=== PATIENT | female | born 1960 | race Hispanic/Latino ===

== ENCOUNTER 2017-05-02 15:19 | Inpatient (IN) | payer OTHER ==
--- NOTE | 2017-05-02 16:06 | C.PDOC ---
History Of Present Illness 56-year-old female, PMHx includes Hypertension and Hypercholesterolemia, presents to the emergency department, with complaints of pain to right calf, that started yesterday. This morning, patient noticed redness and swelling. Patient went to see her doctor, who referred her to the ED for evaluation. Denies fever, trauma/injury, chest pain, shortness of breath, or any other associated symptoms. No other complaints at this time. Patient is a smoker. PMD: Dr Mcmillan Time Seen by Provider: 05/02/17 15:57 Chief Complaint (Nursing): Lower Extremity Problem/Injury History Per: Patient History/Exam Limitations: no limitations Onset/Duration Of Symptoms: Days Current Symptoms Are (Timing): Still Present Severity: Moderate Past Medical History Reviewed: Historical Data, Nursing Documentation, Vital Signs Vital Signs: Last Vital Signs Temp 97.8 F 05/02/17 15:27 Pulse 72 05/02/17 15:27 Resp 20 05/02/17 15:27 BP 115/73 05/02/17 15:27 Pulse Ox 97 05/02/17 17:54 - Medical History PMH: HTN, Hypercholesterolemia Family History: States: No Known Family Hx - Social History Hx Alcohol Use: No Hx Substance Use: No - Immunization History Hx Tetanus Toxoid Vaccination: No Hx Influenza Vaccination: Yes Hx Pneumococcal Vaccination: No Review Of Systems Except As Marked, All Systems Reviewed And Found Negative. Constitutional: Negative for: Fever, Chills Cardiovascular: Negative for: Chest Pain Respiratory: Negative for: Shortness of Breath Gastrointestinal: Negative for: Nausea, Vomiting Musculoskeletal: Positive for: Leg Pain (right calf) Neurological: Negative for: Weakness, Numbness Physical Exam - Physical Exam Appears: Non-toxic, No Acute Distress Skin: Warm, Dry, No Rash Eye(s): bilateral: Normal Inspection, PERRL Nose: Normal Oral Mucosa: Moist Lips: Normal Appearing Neck: Normal ROM Cardiovascular: Rhythm Regular, No Murmur Respiratory: Normal Breath Sounds, No Accessory Muscle Use Extremity: Other (right lower extremity: erythema, swelling and tenderness to medial calf.) Neurological/Psych: Oriented x3, Normal Speech, Other ED Course And Treatment - Laboratory Results Result Diagrams: 05/02/17 17:26 05/02/17 17:26 O2 Sat by Pulse Oximetry: 97 Medical Decision Making Medical Decision Making: Impression 56y/o F comes in w/ right calf pain x2 days, sent by Dr Mcmillan for ultrasound. Plan: * Venous Duplex Scan * Reassess and Disposition Venous doppler shows +DVT to right long saphenous vein and varicose veins. Orders placed for labs and Lovenox. Case discussed with Dr Chau who recommends oral eliquis and will discharge with Rx for medication to start tomorrow Labs reviewed showing hyponatremia, hypokalemia and renal insufficiency. patient is not aware of any kidney disease Based on these findings patient cannot take oral eliquis. will contact hospitalist for admission Spoke with Dr Duarte who accepts admission for observation. Disposition Counseled Patient/Family Regarding: Need For Followup, Rx Given - Disposition Referrals: Vandana Aviles DO [[facility]] - Disposition: HOSPITALIZED Disposition Time: 18:26 Condition: STABLE - POA Present On Arrival: Deep Vein Thrombosis / PE - Clinical Impression Clinical Impression: Deep venous thrombosis of lower extremity, Hyponatremia, Hypokalemia - Scribe Statement The provider has reviewed the documentation as recorded by the Scribe (Ten Barron) All medical record entries made by the Scribe were at my direction and personally dictated by me. I have reviewed the chart and agree that the record accurately reflects my personal performance of the history, physical exam, medical decision making, and the department course for this patient. I have also personally directed, reviewed, and agree with the discharge instructions and disposition. Decision To Admit - Pt Status Changed To: Hospital Disposition Of: Observation - . Bed Request Type: Regular Admitting Physician: Daniella Duarte Patient Diagnosis: Deep venous thrombosis of lower extremity, Hyponatremia, Hypokalemia
[2017-05-02] MEDS ORDERED: Enoxaparin 100 mg Syringe SC STA (16:53)
[2017-05-02 17:37] LABS: BASO % 0.5 % (0.0-2.0); EOS # 0.1 K/uL (0.0-0.7); EOS % 1.5 % (0.0-4.0); HEMATOCRIT 31.8 % (34.0-47.0); LYMPH # 1.6 K/uL (1.0-4.3); MEAN CELL VOLUME 88.1 fL (81.0-99.0); MEAN CORPUSCULAR HEMOGLOBIN 30.5 pg (27.0-31.0); MEAN CORPUSCULAR HGB CONC 34.6 g/dL (33.0-37.0); MEAN PLATELET VOLUME 8.8 fL (7.2-11.7); MONO # 0.6 K/uL (0.0-0.8); MONO % 6.2 % (0.0-10.0); RED CELL DISTRIBUTION WIDTH 12.8 % (11.5-14.5); WHITE BLOOD COUNT 9.7 K/uL (4.8-10.8)
[2017-05-02 17:50] LABS: POTASSIUM 3.3 mmol/L (3.6-5.2)
[2017-05-02 17:52] LABS: ALB/GLOB RATIO 1.2 (1.0-2.1); TOTAL PROTEIN 6.7 g/dL (6.3-8.3)
[2017-05-02 17:53] LABS: CALCIUM 8.9 mg/dl (8.6-10.4)
[2017-05-02 18:01] LABS: INR 1.1
[2017-05-02] MEDS ORDERED: Sodium Chloride 0.9% 1,000 ML IV ONE ×2 (18:06→18:30)
[2017-05-02] MEDS ORDERED: Enoxaparin 40 mg Syringe SC STA (18:18)
[2017-05-02] MEDS ORDERED: Sodium Chloride 0.9% 1,000 ML ONE ×2 (18:19→19:07)
[2017-05-02] MEDS ORDERED: Potassium Chloride 20 mEq ER Tab PO STA (18:20)
[2017-05-02] MEDS ORDERED: Potassium Chloride 20 mEq ER Tab PO ONE (18:23)
[2017-05-02] MEDS ORDERED: Heparin25000 units/250ml 1/2NS 25,000 UNITS/250 ML BAG IV PRN (22:10)
[2017-05-02 22:34] LABS: RBC URINE 5 /hpf (0-3); URINE BACTERIA FEW (<OCC); URINE BILIRUBIN NEGATIVE (NEGATIVE); URINE BLOOD NEGATIVE (NEGATIVE); URINE COLOR Yellow (YELLOW); URINE GLUCOSE (UA) NORMAL (Normal); URINE KETONE NEGATIVE (NEGATIVE); URINE LEUKOCYTE ESTERASE 1+ Leu/uL (Negative); URINE PROTEIN 2+ mg/dL (NEGATIVE); URINE UROBILINOGEN NORMAL mg/dL (0.2-1.0); WBC URINE 17 /hpf (0-5)
[2017-05-02] MEDS: Sodium Chloride 0.9% 1,000 ML IV SCH (22:59)
--- NOTE | 2017-05-03 04:16 | CP.PCM.HP ---
<Julienne Mistry - Last Filed: 05/03/17 04:10> History of Present Illness - History of Present Illness History of Present Illness: CC - "Swelling and pain in my leg" HPI - 56-year-old female with a past medical history of Hypertension and Hypercholesterolemia presents to the emergency department with complaints of pain to right calf pain that started yesterday. This morning, patient noticed redness and swelling. Patient went to see her doctor, who referred her to the ED for evaluation. Denies fever, trauma/injury, chest pain, shortness of breath , or any other associated symptoms. No other complaints at this time. Patient is a smoker. She states that for the last month she has been spending a lot of time in bed because she hadn't felt well. She now feels better. Denied recent travel or surgeries. No history of blood clotting disorders. PMHx - HTN, HLD Surg - denies Meds - does not remember, will need to call pharmacy in the morning "one for HTN and a water pill" -> [facility] Allergies - NKDA FamHx - father had "heart problems", mother of a stoke after having peptic ulcer and was on a vent Social - smokes 1/3 pack a day for 40 years, denies drug or alcohol use, lives with her daughter in [place] PMD - Dr. Mcmillan Present on Admission - Present on Admission Any Indicators Present on Admission: Yes History of DVT/PE: Yes Review of Systems - Constitutional Constitutional: absent: Chills, Fever - EENT Eyes: absent: Blurred Vision, Change in Vision - Cardiovascular Cardiovascular: absent: Chest Pain at Rest, Palpitations, Pedal Edema, Syncope - Respiratory Respiratory: absent: Cough, Dyspnea, Dyspnea on Exertion - Gastrointestinal Gastrointestinal: absent: Abdominal Pain, Constipation, Diarrhea, Nausea, Vomiting - Genitourinary Genitourinary: absent: Change in Urinary Stream, Difficulty Urinating - Musculoskeletal Musculoskeletal: absent: Numbness, Tingling Additional comments: pain and redness to R calf - Neurological Neurological: absent: Dizziness, Weakness - Hematologic/Lymphatic Hematologic: absent: Easy Bleeding, Easy Bruising Past Patient History - Past Medical History & Family History Past Medical History?: Yes - Past Social History Smoking Status: Light Smoker < 10 Cigarettes Daily - CARDIAC Hx Cardiac Disorders: Yes Hx Hypercholesterolemia: Yes Hx Hypertension: Yes - PULMONARY Hx Respiratory Disorders: No - NEUROLOGICAL Hx Neurological Disorder: No - HEENT Hx HEENT Problems: Yes Other/Comment: GLASSES FOR READING - RENAL Hx Chronic Kidney Disease: No - ENDOCRINE/METABOLIC Hx Endocrine Disorders: No - HEMATOLOGICAL/ONCOLOGICAL Hx Blood Disorders: No - INTEGUMENTARY Hx Dermatological Problems: No - MUSCULOSKELETAL/RHEUMATOLOGICAL Hx Musculoskeletal Disorders: No Hx Falls: No - GASTROINTESTINAL Hx Gastrointestinal Disorders: No - GENITOURINARY/GYNECOLOGICAL Hx Genitourinary Disorders: No - PSYCHIATRIC Hx Psychophysiologic Disorder: No Hx Substance Use: No - SURGICAL HISTORY Hx Surgeries: No Other/Comment: CYST LEFT BREAST YEARS - ANESTHESIA Hx Anesthesia: No Meds Allergies/Adverse Reactions: Allergies Allergy/AdvReac Type Severity Reaction Status Date / Time No Known Allergies Allergy Verified 05/02/17 15:29 Physical Exam - Constitutional Appears: Non-toxic, No Acute Distress - Head Exam Head Exam: ATRAUMATIC, NORMAL INSPECTION - Eye Exam Eye Exam: EOMI, PERRL Pupil Exam: NORMAL ACCOMODATION - ENT Exam ENT Exam: Mucous Membranes Moist - Respiratory Exam Respiratory Exam: Clear to Auscultation Bilateral, NORMAL BREATHING PATTERN. absent: Accessory Muscle Use, Rhonchi, Wheezes, Respiratory Distress - Cardiovascular Exam Cardiovascular Exam: REGULAR RHYTHM, +S1, +S2 - GI/Abdominal Exam GI & Abdominal Exam: Normal Bowel Sounds, Soft. absent: Distended, Firm, Guarding, Tenderness - Extremities Exam Extremities exam: Positive for: calf tenderness, normal inspection. Negative for: pedal edema Additional comments: Calf tenderness R sided, with area of erythema and edema, warm to touch, sensation in tact - Back Exam Back exam: NORMAL INSPECTION. absent: CVA tenderness (L), CVA tenderness (R), paraspinal tenderness - Neurological Exam Neurological exam: Alert, Normal Gait, Oriented x3 - Psychiatric Exam Psychiatric exam: Normal Affect, Normal Mood - Skin Skin Exam: Dry, Intact, Normal Color, Warm Results - Vital Signs Recent Vital Signs: Last Vital Signs Temp 97.7 F 05/03/17 00:40 Pulse 60 05/03/17 00:40 Resp 18 05/03/17 00:40 BP 133/87 05/03/17 00:40 Pulse Ox 96 05/03/17 00:40 - Labs Result Diagrams: 05/02/17 17:26 05/02/17 17:26 Labs: Laboratory Results - last 24 hr 05/02/17 22:34 Urine Color Yellow Urine Clarity Hazy Urine pH 5.0 Ur Specific [place] 1.008 Urine Protein 2+ H Urine Glucose (UA) Normal Urine Ketones Negative Urine Blood Negative Urine Nitrate Negative Urine Bilirubin Negative Urine Urobilinogen Normal Ur Leukocyte Esterase 1+ H Urine WBC (Auto) 17 H Urine RBC (Auto) 5 H Ur Squamous Epith Cells 14 H Urine Bacteria Few H Assessment & Plan - Assessment and Plan (Free Text) Assessment: Deep Vein thrombosis Dopplers - DVT + Righ saphenous vein Lovenox 100mg SC given in the ED will start Heparin drip due to renal function monitor coags no clinical sings of PE, (no SOB, not tachycardic, no chest pain) CASSIE BUN/CR - 14/1.6 NS at 150 cc/hours if no improvement then consider nephrology cnsults f/u urine electrolytes Hyponatremia Na - 124 On fluids monitor Hypertension controlled will call pharmacy in the morning when it opens to verify meds Hyperlipidemia will call pharmacy in the morning when it opens to verify meds Prophylactic measures Pepcid 20mg PO daily on Heparin drip SCDs contraindicated due to DVT Reg diet <Rangel Glover - Last Filed: 05/03/17 06:33> Results - Vital Signs Recent Vital Signs: Last Vital Signs Temp 97.7 F 05/03/17 04:00 Pulse 61 05/03/17 04:00 Resp 20 05/03/17 04:00 BP 103/66 05/03/17 04:00 Pulse Ox 97 05/03/17 04:00 - Labs Result Diagrams: 05/03/17 06:08 05/02/17 17:26 Labs: Laboratory Results - last 24 hr 05/02/17 05/03/17 22:34 06:08 WBC 6.5 RBC 3.34 L Hgb 10.2 L Hct 29.5 L MCV 88.1 MCH 30.4 MCHC 34.5 RDW 12.5 Plt Count 147 MPV 9.2 Urine Color Yellow Urine Clarity Hazy Urine pH 5.0 Ur Specific [place] 1.008 Urine Protein 2+ H Urine Glucose (UA) Normal Urine Ketones Negative Urine Blood Negative Urine Nitrate Negative Urine Bilirubin Negative Urine Urobilinogen Normal Ur Leukocyte Esterase 1+ H Urine WBC (Auto) 17 H Urine RBC (Auto) 5 H Ur Squamous Epith Cells 14 H Urine Bacteria Few H Assessment & Plan - Date & Time Date: 05/03/17 (I have seen and examined the patient. I agree with the findings and plan of care as documented by Dr Mistry. Patient with DVT. Also with acute kidney injury and hyponatremia. Heparin drip. IVF with normal saline. If renal function does not improve with IVF, consider nephro consult. If sodium does not improve, check urine electrolytes. Monitor for acute changes.) Time: 06:31 Attending/Attestation - Attestation I have personally seen and examined this patient.: Yes I have fully participated in the care of the patient.: Yes I have reviewed all pertinent clinical information: Yes
[2017-05-03] MEDS: Sodium Chloride 0.9% 1,000 ML IV SCH ×3 (05:37→15:41)
[2017-05-03 06:16] LABS: HEMATOCRIT 29.5 % (34.0-47.0); MEAN CELL VOLUME 88.1 fL (81.0-99.0); MEAN CORPUSCULAR HEMOGLOBIN 30.4 pg (27.0-31.0); MEAN CORPUSCULAR HGB CONC 34.5 g/dL (33.0-37.0); MEAN PLATELET VOLUME 9.2 fL (7.2-11.7); RED CELL DISTRIBUTION WIDTH 12.5 % (11.5-14.5); WHITE BLOOD COUNT 6.5 K/uL (4.8-10.8)
[2017-05-03 06:34] LABS: POTASSIUM 3.3 mmol/L (3.6-5.2)
[2017-05-03 06:36] LABS: BILIRUBIN,TOTAL 0.9 mg/dL (0.2-1.3)
[2017-05-03 06:37] LABS: ALB/GLOB RATIO 1.2 (1.0-2.1); CALCIUM 8.1 mg/dl (8.6-10.4); PHOSPHOROUS 3.5 mg/dL (2.5-4.5); TOTAL PROTEIN 5.6 g/dL (6.3-8.3)
[2017-05-03 06:38] LABS: MAGNESIUM 1.5 mg/dL (1.6-2.3)
[2017-05-03] MEDS: Heparin25000 units/250ml 1/2NS 25,000 UNITS/250 ML BAG IV PRN ×2 (08:12→15:52)
[2017-05-03] MEDS ORDERED: Potassium Chloride 20 mEq ER Tab PO ONE (11:00)
[2017-05-03] MEDS: Magnesium Sulfate 1 gm in D5W 1 GM/100 ML BAG IVPB SCH ×2 (11:14→12:52)
--- NOTE | 2017-05-03 11:14 | CARD ---
APPROVED REPORT EKG Measurement Heart [id number] [id number] <Conclusion> Normal sinus rhythm Normal ECG
[2017-05-03 16:11] VITALS: RESP 20
--- NOTE | 2017-05-03 20:01 | CP.PCM.PN ---
<Lynda Bansal - Last Filed: 05/03/17 19:58> Subjective - Date & Time of Evaluation Date of Evaluation: 05/03/17 Time of Evaluation: 19:58 - Subjective Subjective: Medicine Progress Note- Dr. Dozier service Patient was seen and examined at bedside in no acute distress. Patient states her right light feels better but still in pain. Patient states her right leg feels slightly swollen in the location of pain. Patient has not had a bowel moment since the previous morning and feels bloated. Patient denies chest pain, palpitations, sob, nausea, vomiting, diarrhea, fever, and dizziness. Objective - Vital Signs/Intake and Output Vital Signs (last 24 hours): Temp Pulse Resp BP Pulse Ox 98.1 F 54 L 20 120/67 98 05/03/17 15:45 05/03/17 15:45 05/03/17 15:45 05/03/17 15:45 05/03/17 15:45 - Medications Medications: Current Medications Apixaban (Eliquis) 10 mg PO BID [facility], [facility] Last Admin: 05/03/17 19:19 Dose: 10 mg Dicyclomine HCl (Bentyl) 10 mg PO QID [facility], [facility] Last Admin: 05/03/17 19:23 Dose: 10 mg Docusate Sodium (Colace) 100 mg PO DAILY [facility], [facility] Last Admin: 05/03/17 16:52 Dose: Not Given Famotidine (Pepcid) 20 mg PO BID [facility] Last Admin: 05/03/17 19:22 Dose: 20 mg Sodium Chloride (Sodium Chloride 0.9%) 1,000 mls @ 100 mls/hr IV .Q10H [facility], [facility]1983 Last Admin: 05/03/17 15:41 Dose: Not Given Ketorolac Tromethamine (Toradol) 30 mg IVP Q6 PRN PRN Reason: Pain, severe (8-10) Last Admin: 05/03/17 16:48 Dose: 30 mg Losartan Potassium (Cozaar) 50 mg PO DAILY [facility] Last Admin: 05/03/17 16:54 Dose: 50 mg Pneumococcal Polyvalent Vaccine (Pneumovax 23 Vaccine) 0.5 ml IM .ONCE ONE Stop: 05/04/17 10:01 Rosuvastatin Calcium (Crestor) 5 mg PO HS [facility], [facility]1983 - Labs Labs: PT 12.9 SECONDS (9.7-12.2) H 05/02/17 17:26 INR 1.1 05/02/17 17:26 APTT 80 SECONDS (21-34) H D 05/03/17 14:38 - Constitutional Appears: Non-toxic, No Acute Distress - Eye Exam Eye Exam: EOMI, Normal appearance - ENT Exam ENT Exam: Mucous Membranes Moist - Neck Exam Neck Exam: Full ROM, Normal Inspection - Respiratory Exam Respiratory Exam: Clear to Ausculation Bilateral, NORMAL BREATHING PATTERN. absent: Wheezes - Cardiovascular Exam Cardiovascular Exam: REGULAR RHYTHM, +S1 - GI/Abdominal Exam GI & Abdominal Exam: Soft, Normal Bowel Sounds. absent: Tenderness - Extremities Exam Extremities Exam: Calf Tenderness, Tenderness. absent: Pedal Edema - Neurological Exam Neurological Exam: Alert, Awake, Oriented x3 - Psychiatric Exam Psychiatric exam: Normal Affect, Normal Mood - Skin Skin Exam: Dry, Intact, Normal Color, Warm Assessment and Plan (1) Deep venous thrombosis of lower extremity Assessment & Plan: Dopplers - DVT in muscle veins + Right long saphenous vein Discontinued- Lovenox 100mg SC (given in the ED) Discontinued Heparin drip Patient to start Eliquis 10mg PO BID 05/03/17 Toradol 30mg IV Q6 PRN for pain Status: Acute (2) HTN (hypertension) Assessment & Plan: Controlled Losartan 50mg Hold HCTZ 12.5mg (home med) Status: Acute (3) Hyperlipemia Assessment & Plan: Crestor 5mg daily (Home medication- pravastatin 20mg daily) Status: Acute (4) CASSIE (acute kidney injury) Assessment & Plan: BUN/CR - 12/ 1.3 (05/03/17) NS at 100 cc/hours Status: Acute (5) Hyponatremia Assessment & Plan: Na - 125 (05/03/17) On fluids HOLD HCTZ 12.5mg (home medication) monitor Status: Acute (6) Hypomagnesemia Assessment & Plan: replaced with Magnesium sulfate 1gm IVPB Q30M Status: Acute (7) Hypokalemia Assessment & Plan: replaced with K-Dur 40mEq PO once one Status: Acute (8) Prophylactic measure Assessment & Plan: Pepcid 20mg PO daily SCDs contraindicated due to DVT Regular Activity ordered Reg diet Status: Acute <Dick Dozier - Last Filed: 05/04/17 13:57> Objective - Vital Signs/Intake and Output Vital Signs (last 24 hours): Temp Pulse Resp BP Pulse Ox 98 F 66 20 121/74 94 L 05/04/17 07:00 05/04/17 07:00 05/04/17 07:00 05/04/17 07:00 05/04/17 07:00 Intake and Output: 05/04/17 05/04/17 06:59 18:59 Intake Total 0 Balance 0 - Medications Medications: Current Medications Apixaban (Eliquis) 10 mg PO BID [facility] Last Admin: 05/04/17 10:15 Dose: 10 mg Dicyclomine HCl (Bentyl) 10 mg PO QID [facility] Last Admin: 05/04/17 10:55 Dose: 10 mg Docusate Sodium (Colace) 100 mg PO DAILY [facility] Last Admin: 05/04/17 10:55 Dose: Not Given Famotidine (Pepcid) 20 mg PO BID [facility] Last Admin: 05/04/17 10:55 Dose: 20 mg Ketorolac Tromethamine (Toradol) 30 mg IVP Q6 PRN PRN Reason: Pain, severe (8-10) Last Admin: 05/04/17 04:40 Dose: 30 mg Losartan Potassium (Cozaar) 50 mg PO DAILY [facility] Last Admin: 05/04/17 10:55 Dose: 50 mg Rosuvastatin Calcium (Crestor) 5 mg PO HS [facility] Last Admin: 05/03/17 22:59 Dose: 5 mg - Labs Labs: 05/04/17 08:37 05/04/17 08:37 PT 12.9 SECONDS (9.7-12.2) H 05/02/17 17:26 INR 1.1 05/02/17 17:26 APTT 80 SECONDS (21-34) H D 05/03/17 14:38 Attending/Attestation - Attestation I have personally seen and examined this patient.: Yes I have fully participated in the care of the patient.: Yes I have reviewed all pertinent clinical information, including history, physical exam and plan: Yes Notes (Text): 05/04/17 13:57 Patient was seen and examined at bedside with the resident We will start the patient on Eliquis tonight She stated that the leg pain and swelling is improving. I agree with the history and physical and assessment/plan by the resident
--- NOTE | 2017-05-03 20:36 | VASCLAB ---
PROCEDURE: Lower Extremity Venous Duplex Exam. HISTORY: right calf redness, pain, and swelling PRIORS: None. TECHNIQUE: Bilateral common femoral, femoral, popliteal and posterior tibial, peroneal and great saphenous veins were evaluated. Flow was assessed with color Doppler, compressibility, assessment of phasic flow and augmentation response. Report prepared by MARYANN Weems, RVT FINDINGS: RIGHT: 1. Common Femoral Vein: 1.1. Compressibility - Fully compressible: Thrombus - None : Flow - Phasic: Augmentation -Normal: Reflux - None. 2. Femoral Vein: 2.1. Compressibility - Fully compressible: Thrombus - None : Flow - Phasic: Augmentation -Normal: Reflux - None. 3. Popliteal Vein: 3.1. Compressibility - Fully compressible: Thrombus - None : Flow - Phasic: Augmentation -Normal: Reflux - None. 4. Posterior Tibial Vein: 4.1. Compressibility - Fully compressible: Thrombus - None: Flow - Phasic: Augmentation -Normal: Reflux - None. 5. Peroneal Vein: 5.1. Compressibility - Fully compressible: Thrombus - None: Flow - Phasic: Augmentation -Normal: Reflux - None. 6. Great Saphenous Vein: 6.1. Compressibility - Partial: Thrombus - Acute: Flow - Reduced : Augmentation - None: Reflux - None. LEFT: 1. Common Femoral Vein: 1.1. Compressibility - Fully compressible: Thrombus - None: Flow - Phasic: Augmentation -Normal: Reflux - None. 2. Femoral Vein: 2.1. Compressibility - Fully compressible: Thrombus - None: Flow - Phasic: Augmentation -Normal: Reflux - None. 3. Popliteal Vein: 3.1. Compressibility - Fully compressible: Thrombus - None : Flow - Phasic: Augmentation -Normal: Reflux - None. 4. Posterior Tibial Vein: 4.1. Compressibility - Fully compressible: Thrombus - None: Flow - Phasic: Augmentation -Normal: Reflux - None. 5. Peroneal Vein: 5.1. Compressibility - Fully compressible: Thrombus - None: Flow - Phasic: Augmentation -Normal: Reflux - None. 6. Great Saphenous Vein: 6.1. Compressibility - Fully compressible: Thrombus - None: Flow - Phasic: Augmentation - Normal: Reflux - Severe. OTHER FINDINGS: Right: Acute thrombus noted within the right gastrocnemius and greater saphenous veins. LEMUEL Foster notified about the findings. Left: Severe valvular incompetence of the left greater saphenous vein. IMPRESSION: Right: Acute thrombosis of the right gastrocnemius, greater saphenous and varicose veins with reduction of the venous return. Left: No evidence of deep or superficial vein thrombosis of the left lower extremity. Case was discussed with Dr. Chau at approximately 6 p.m. on 05/02/2017.
[2017-05-04] MEDS: Sodium Chloride 0.9% 1,000 ML IV SCH ×2 (02:19→06:51)
[2017-05-04 07:46] VITALS: BP 121/74; TEMP 98; O2SAT 94
[2017-05-04 08:28] LABS: CHLORIDE URINE 37 mmol/L (32-290)
[2017-05-04 08:49] LABS: BASO % 0.5 % (0.0-2.0); EOS # 0.2 K/uL (0.0-0.7); EOS % 3.7 % (0.0-4.0); HEMATOCRIT 28.5 % (34.0-47.0); MEAN CELL VOLUME 88.6 fL (81.0-99.0); MEAN CORPUSCULAR HEMOGLOBIN 30.2 pg (27.0-31.0); MEAN CORPUSCULAR HGB CONC 34.1 g/dL (33.0-37.0); MEAN PLATELET VOLUME 9.3 fL (7.2-11.7); MONO # 0.4 K/uL (0.0-0.8); MONO % 7.1 % (0.0-10.0); RED CELL DISTRIBUTION WIDTH 12.3 % (11.5-14.5); WHITE BLOOD COUNT 6.1 K/uL (4.8-10.8)
[2017-05-04 09:00] LABS: CHLORIDE 98 mmol/L (98-107); POTASSIUM 3.8 mmol/L (3.6-5.2); SODIUM 129 mmol/L (132-148)
[2017-05-04 09:02] LABS: ALB/GLOB RATIO 1.1 (1.0-2.1); AST/SGOT 29 U/L (14-36); BILIRUBIN,TOTAL 0.8 mg/dL (0.2-1.3); CARBON DIOXIDE 23 mmol/L (22-30); GFR AFRICAN-AMERICAN > 60; TOTAL PROTEIN 5.6 g/dL (6.3-8.3)
[2017-05-04 09:03] LABS: ALKALINE PHOSPHATASE 164 U/L (38-126); ALT/SGPT 23 U/L (9-52); BLOOD UREA NITROGEN 9 mg/dL (7-17); CALCIUM 8.3 mg/dl (8.6-10.4); GLUCOSE,RANDOM 90 mg/dL (65-105); MAGNESIUM 1.8 mg/dL (1.6-2.3); PHOSPHOROUS 3.4 mg/dL (2.5-4.5)
[2017-05-04] MEDS ORDERED: Pneumococcal 23-Valent Vaccine IM ONE (10:00)
[2017-05-04 18:18] VITALS: PULSE 72
--- NOTE | 2017-05-04 21:53 | CP.PCM.DIS ---
Provider - Provider Date of Admission: 05/03/17 17:59 Attending physician: Rangel Glover MD Primary care physician: Dr. Mcmillan Time Spent in preparation of Discharge (in minutes): 45 Diagnosis - Discharge Diagnosis (1) Deep venous thrombosis of lower extremity Status: Resolved Comment: See hospital summary for further details. (2) HTN (hypertension) Status: Chronic Comment: See hospital summary for further details. (3) Hyperlipemia Status: Chronic Comment: See hospital summary for further details. (4) CASSIE (acute kidney injury) Status: Chronic Comment: See hospital summary for further details. (5) Hyponatremia Status: Resolved Comment: See hospital summary for further details. (6) Hypomagnesemia Status: Resolved Comment: See hospital summary for further details. (7) Hypokalemia Status: Resolved Comment: See hospital summary for further details. Hospital Course - Lab Results Lab Results: Most Recent Lab Values WBC 6.1 K/uL (4.8-10.8) 05/04/17 08:37 RBC 3.22 Mil/uL (3.80-5.20) L 05/04/17 08:37 Hgb 9.7 g/dL (11.0-16.0) L 05/04/17 08:37 Hct 28.5 % (34.0-47.0) L 05/04/17 08:37 MCV 88.6 fL (81.0-99.0) 05/04/17 08:37 MCH 30.2 pg (27.0-31.0) 05/04/17 08:37 MCHC 34.1 g/dL (33.0-37.0) 05/04/17 08:37 RDW 12.3 % (11.5-14.5) 05/04/17 08:37 Plt Count 157 K/uL (130-400) 05/04/17 08:37 MPV 9.3 fL (7.2-11.7) 05/04/17 08:37 Neut % (Auto) 71.7 % (50.0-75.0) 05/04/17 08:37 Lymph % (Auto) 17.0 % (20.0-40.0) L 05/04/17 08:37 [place] % (Auto) 7.1 % (0.0-10.0) 05/04/17 08:37 Eos % (Auto) 3.7 % (0.0-4.0) 05/04/17 08:37 Baso % (Auto) 0.5 % (0.0-2.0) 05/04/17 08:37 Neut # 4.4 K/uL (1.8-7.0) 05/04/17 08:37 Lymph # 1.0 K/uL (1.0-4.3) 05/04/17 08:37 [place] # 0.4 K/uL (0.0-0.8) 05/04/17 08:37 Eos # 0.2 K/uL (0.0-0.7) 05/04/17 08:37 Baso # 0.0 K/uL (0.0-0.2) 05/04/17 08:37 PT 12.9 SECONDS (9.7-12.2) H 05/02/17 17:26 INR 1.1 05/02/17 17:26 APTT 80 SECONDS (21-34) H D 05/03/17 14:38 D-Dimer, Quantitative 4600 ng/mlDDU (0-243) H 05/02/17 17:26 Sodium 129 mmol/L (132-148) L 05/04/17 08:37 Potassium 3.8 mmol/L (3.6-5.2) 05/04/17 08:37 Chloride 98 mmol/L (98-107) 05/04/17 08:37 Carbon Dioxide 23 mmol/L (22-30) 05/04/17 08:37 Anion Gap 11 (10-20) 05/04/17 08:37 BUN 9 mg/dL (7-17) 05/04/17 08:37 Creatinine 0.8 MG/DL (0.7-1.2) 05/04/17 08:37 Est GFR ( Amer) > 60 05/04/17 08:37 Est GFR (Non-Af Amer) > 60 05/04/17 08:37 Random Glucose 90 mg/dL (65-105) 05/04/17 08:37 Calcium 8.3 mg/dl (8.6-10.4) L 05/04/17 08:37 Phosphorus 3.4 mg/dL (2.5-4.5) 05/04/17 08:37 Magnesium 1.8 mg/dL (1.6-2.3) 05/04/17 08:37 Total Bilirubin 0.8 mg/dL (0.2-1.3) 05/04/17 08:37 AST 29 U/L (14-36) 05/04/17 08:37 ALT 23 U/L (9-52) 05/04/17 08:37 Alkaline Phosphatase 164 U/L (38-126) H 05/04/17 08:37 Total Protein 5.6 g/dL (6.3-8.3) L 05/04/17 08:37 Albumin 2.9 g/dL (3.5-5.0) L 05/04/17 08:37 Globulin 2.7 gm/dL (2.2-3.9) 05/04/17 08:37 Albumin/Globulin Ratio 1.1 (1.0-2.1) 05/04/17 08:37 Urine Color Yellow (YELLOW) 05/02/17 22:34 Urine Clarity Hazy (Clear) 05/02/17 22:34 Urine pH 5.0 (5.0-8.0) 05/02/17 22:34 Ur Specific [place] 1.008 (1.003-1.030) 05/02/17 22:34 Urine Protein 2+ mg/dL (NEGATIVE) H 05/02/17 22:34 Urine Glucose (UA) Normal mg/dL (Normal) 05/02/17 22:34 Urine Ketones Negative mg/dL (NEGATIVE) 05/02/17 22:34 Urine Blood Negative (NEGATIVE) 05/02/17 22:34 Urine Nitrate Negative (NEGATIVE) 05/02/17 22:34 Urine Bilirubin Negative (NEGATIVE) 05/02/17 22:34 Urine Urobilinogen Normal mg/dL (0.2-1.0) 05/02/17 22:34 Ur Leukocyte Esterase 1+ [place]/uL (Negative) H 05/02/17 22:34 Urine WBC (Auto) 17 /hpf (0-5) H 05/02/17 22:34 Urine RBC (Auto) 5 /hpf (0-3) H 05/02/17 22:34 Ur Squamous Epith Cells 14 /hpf (0-5) H 05/02/17 22:34 Urine Bacteria Few (<OCC) H 05/02/17 22:34 Urine Osmolality 219 mosm/kg (300-1000) L 05/03/17 14:55 Ur Random Sodium 29 mmol/L 05/03/17 14:55 Urine Chloride 37 mmol/L (32-290) 05/03/17 14:55 - Hospital Course Hospital Course: CC - "Swelling and pain in my leg" HPI - 56-year-old female with a past medical history of Hypertension and Hypercholesterolemia presents to the emergency department with complaints of pain to right calf pain that started yesterday. This morning, patient noticed redness and swelling. Patient went to see her doctor, who referred her to the ED for evaluation. Denies fever, trauma/injury, chest pain, shortness of breath , or any other associated symptoms. No other complaints at this time. Patient is a smoker. She states that for the last month she has been spending a lot of time in bed because she hadn't felt well. She now feels better. Denied recent travel or surgeries. No history of blood clotting disorders. Patient was admitted for right calf pain. In the ED, EKG showed normal sinus rhythm and the venous doppler showed "acute thrombosis in right gastrocnemius, greater saphenous and varicose veins with reduction of venous return". Patient received Lovenox. Labs showed hyponatremia, hypokalemia, and renal insufficiency. Once admitted, patient received fluids, magnesium and potassium replacement. Patient's swelling and pain improved. Patient is stable to be discharged to home as per Dr. Dozier. This is a summary of the hospital course. Please see chart for details. Patient is stable to discharge home as per Dr. Dozier. Patient is to resume home medications, except hydrochlorothiazde, and start new medication listed below. Home medication: Pravastatin 20mg daily Valsartan 40mg daily Dicyclomide 10mg BID Colace 100mg daily New medication: Eliquis 5mg- take 2 tablets twice a day for 7 days, and then take 1 tablet twice a day for 23 days. Please follow up with your PMD, Dr. Mcmillan, within one week of discharge. These instructions were provided and understood by the patient. Patient should return to the ED if symptoms reoccur. Discharge Exam - Head Exam Head Exam: ATRAUMATIC, NORMAL INSPECTION - Eye Exam Eye Exam: EOMI, Normal appearance - ENT Exam ENT Exam: Mucous Membranes Moist - Neck Exam Neck exam: Full Rom, Normal Inspection - Respiratory Exam Respiratory Exam: Clear to PA & Lateral, NORMAL BREATHING PATTERN, UNREMARKABLE - Cardiovascular Exam Cardiovascular Exam: REGULAR RHYTHM, +S1, +S2 - GI/Abdominal Exam GI & Abdominal Exam: Normal Bowel Sounds, Unremarkable. absent: Tenderness - Extremities Exam Extremities exam: calf tenderness, tenderness - Neurological Exam Neurological exam: Alert, Oriented x3 - Psychiatric Exam Psychiatric exam: Normal Affect, Normal Mood - Skin Skin Exam: Dry, Intact, Normal Color, Warm Additional comments: right popliteal region- bruising and mild swelling & erythema Discharge Plan - Discharge Medications Prescriptions: Apixaban [Eliquis] 5 mg PO BID #74 tab Pravastatin Sodium [Pravachol] 20 mg PO DAILY #30 tab Valsartan 40 mg PO DAILY #30 tablet - Follow Up Plan Condition: STABLE Disposition: HOME/ ROUTINE Instructions: Dicyclomine (By mouth), Laxative, Stool Softeners (By mouth), Pravastatin (By mouth), Valsartan (By mouth), Apixaban (By mouth), How to Stop Smoking (DC), Hyponatremia (DC), Hypokalemia (DC), Cigarette Smoking and Your Health (GEN), Deep Venous Thrombosis (DC), Chronic Hypertension (DC) Additional Instructions: Patient is stable to discharge home as per Dr. Dozier. Patient is to resume home medications, except hydrochlorothiazde, and start new medication listed below. Home medication: Pravastatin 20mg daily Valsartan 40mg daily Dicyclomide 10mg BID Colace 100mg daily New medication: Eliquis 5mg- take 2 tablets twice a day for 7 days, and then take 1 tablet twice a day for 23 days. Please follow up with your PMD, Dr. Mcmillan, within one week of discharge. These instructions were provided and understood by the patient. Patient should return to the ED if symptoms reoccur. Referrals: Vandana Aviles DO [[facility]] -
== END 2017-05-04 14:30 | disposition home or self-care (01) | DRG 543 ==
LOC: C.ER 15:19 → C.9E 18:31 → C.6T 21:49 → OBSVTOIN 05-03 17:59
PROVIDERS: ADMIT Family Medicine; ATTEND Family Medicine
DX: I82.4Z1 Acute embolism and thrombosis of unspecified deep veins of right distal lower extremity (principal); N17.9 Acute kidney failure, unspecified; E87.1 Hypo-osmolality and hyponatremia; E83.42 Hypomagnesemia; E87.6 Hypokalemia; I83.891 Varicose veins of right lower extremity with other complications; I10 Essential (primary) hypertension; F17.210 Nicotine dependence, cigarettes, uncomplicated; E78.00 Pure hypercholesterolemia, unspecified; E78.5 Hyperlipidemia, unspecified

== ENCOUNTER 2017-05-13 21:57 | Inpatient (IN) | payer OTHER ==
--- NOTE | 2017-05-13 22:10 | C.PDOC ---
History Of Present Illness Patient presents to the ED with complaints of chest pain beginning this morning with associated headache. Patient notes complaints of back pain but denies any fever, chills, nausea, vomiting, or SOB. Time Seen by Provider: 05/13/17 22:09 Chief Complaint (Nursing): Chest Pain History Per: Patient History/Exam Limitations: no limitations Onset/Duration Of Symptoms: Hrs Current Symptoms Are (Timing): Still Present Severity: Moderate Pain Scale Rating Of: 4 Quality: "Pain" Associated Symptoms: denies: Nausea, Dyspnea, Diaphoresis, Syncope Exacerbating Factors: None Recent travel outside of the [place]: No Past Medical History Reviewed: Historical Data, Nursing Documentation, Vital Signs Vital Signs: Last Vital Signs Temp 98 F 05/13/17 23:00 Pulse 84 05/13/17 23:17 Resp 20 05/13/17 23:17 BP 132/84 05/13/17 23:17 Pulse Ox 97 05/13/17 23:17 - Medical History PMH: HTN, Hypercholesterolemia Family History: States: Unknown Family Hx - Social History Hx Alcohol Use: No Hx Substance Use: No - Immunization History Hx Tetanus Toxoid Vaccination: No Hx Influenza Vaccination: Yes Hx Pneumococcal Vaccination: No Review Of Systems Constitutional: Negative for: Fever, Chills Eyes: Negative for: Redness Cardiovascular: Positive for: Chest Pain. Negative for: Palpitations Respiratory: Negative for: Cough, Shortness of Breath Gastrointestinal: Negative for: Nausea, Vomiting, Abdominal Pain, Diarrhea Genitourinary: Negative for: Dysuria Musculoskeletal: Positive for: Back Pain Skin: Negative for: Rash, Lesions Psych: Negative for: Anxiety Physical Exam - Physical Exam Appears: Non-toxic, No Acute Distress, Other (Patient is speaking in complete sentences) Skin: Warm, Dry Head: Normacephalic Eye(s): bilateral: Normal Inspection, PERRL, EOMI Oral Mucosa: Moist Neck: Supple Chest: Symmetrical, No Deformity Cardiovascular: Rhythm Regular Respiratory: No Rales, No Rhonchi, No Wheezing Gastrointestinal/Abdominal: Soft, No Tenderness, No Distention, No Guarding, No Rebound Back: Paraspinal Tenderness (mild) Extremity: Normal ROM, No Tenderness Extremity: Bilateral: Atraumatic, Normal Color And Temperature, Normal ROM Neurological/Psych: Oriented x3, Normal Speech, Normal Cognition Gait: Steady ED Course And Treatment - Laboratory Results Result Diagrams: 05/13/17 22:31 05/13/17 22:31 ECG: Interpreted By Me, Viewed By Me ECG Rhythm: Sinus Rhythm (90), Nonspecific Changes O2 Sat by Pulse Oximetry: 97 Pulse Ox Interpretation: Normal - Radiology CXR: Interpreted by Me, Viewed By Me CXR Interpretation: No: Infiltrates, Fracture, Pnemothorax Disposition Discussed With Dr.: Rangel Glover Comment: accepted the pt on his service and took over the care at 1:06AM Doctor Will See Patient In The: ED Counseled Patient/Family Regarding: Studies Performed, Diagnosis - Disposition Disposition: HOSPITALIZED Disposition Time: 22:10 Condition: GUARDED - POA Present On Arrival: Deep Vein Thrombosis / PE - Clinical Impression Clinical Impression: Chest pain, Pulmonary emboli, Lung nodules - Scribe Statement The provider has reviewed the documentation as recorded by the Scribe Vianca Phan All medical record entries made by the Scribe were at my direction and personally dictated by me. I have reviewed the chart and agree that the record accurately reflects my personal performance of the history, physical exam, medical decision making, and the department course for this patient. I have also personally directed, reviewed, and agree with the discharge instructions and disposition. Decision To Admit - Pt Status Changed To: Hospital Disposition Of: Inpatient - Admit Certification Admit to Inpatient:: After my assessment, the patient will require hospitalization for at least two midnights. This is because of the severity of symptoms shown, intensity of services needed, and/or the medical risk in this patient being treated as an outpatient. - InPatient: Physician Admission Certification: I certify that this patient requires 2 or more midnights of care for the following reason:: After my assessment, the patient will require hospitalization for at least two midnights. This is because of the severity of symptoms shown, intensity of services needed, and/or the medical risk in this patient being treated as an outpatient. - . Bed Request Type: Telemetry Admitting Physician: Rangel Glover Patient Diagnosis: Chest pain, Pulmonary emboli, Lung nodules
[2017-05-13 22:39] LABS: BASO # 0.1 K/uL (0.0-0.2); BASO % 0.6 % (0.0-2.0); EOS # 0.3 K/uL (0.0-0.7); EOS % 3.3 % (0.0-4.0); HEMOGLOBIN 11.2 g/dL (11.0-16.0); LYMPH # 1.3 K/uL (1.0-4.3); LYMPH % 14.4 % (20.0-40.0); MEAN CELL VOLUME 89.9 fL (81.0-99.0); MEAN CORPUSCULAR HEMOGLOBIN 29.7 pg (27.0-31.0); MEAN PLATELET VOLUME 9.7 fL (7.2-11.7); MONO # 0.7 K/uL (0.0-0.8); MONO % 8.2 % (0.0-10.0); NEUT # 6.7 K/uL (1.8-7.0); NEUT % 73.5 % (50.0-75.0); RBC 3.79 Mil/uL (3.80-5.20); WHITE BLOOD COUNT 9.1 K/uL (4.8-10.8)
[2017-05-13 22:41] LABS: ALBUMIN 3.6 g/dL (3.5-5.0)
[2017-05-13 22:44] LABS: ALB/GLOB RATIO 1.1 (1.0-2.1); ALT/SGPT 34 U/L (9-52); AST/SGOT 54 U/L (14-36); BLOOD UREA NITROGEN 7 mg/dL (7-17); GFR AFRICAN-AMERICAN > 60; GFR NON-AFRICAN AMERICAN > 60
[2017-05-13 22:45] LABS: CALCIUM 9.1 mg/dl (8.6-10.4); INR 1.8; PROTHROMBIN TIME 20.6 SECONDS (9.7-12.2)
[2017-05-13] MEDS ORDERED: Morphine 4 MG/ML VIAL ONE (23:14)
[2017-05-13 23:22] LABS: SQUAMOUS EPITHIAL 39 /hpf (0-5); URINE BACTERIA RARE (<OCC); URINE BILIRUBIN NEGATIVE (NEGATIVE); URINE CLARITY Hazy (Clear); URINE COLOR Amber (YELLOW); URINE GLUCOSE (UA) NORMAL (Normal); URINE NITRATE NEGATIVE (NEGATIVE); URINE PROTEIN 2+ mg/dL (NEGATIVE)
[2017-05-13 23:27] LABS: URINE BLOOD 1+ (NEGATIVE); URINE LEUKOCYTE ESTERASE 2+ Leu/uL (Negative)
[2017-05-13] MEDS ORDERED: Iodixanol 320 MG/ML 100 ML BOTTLE IV ONE (23:43)
[2017-05-13] MEDS ORDERED: cefTRIAXone IV 1 gm in Dextros 50 ML IVPB ONE (23:45)
--- NOTE | 2017-05-13 23:47 | CT ---
EXAM: CT Head Without Intravenous Contrast CLINICAL HISTORY: 56 years old, female; Condition or disease; Headache; Headache not specified; Additional info: Headache , pt on eliquis TECHNIQUE: Axial computed tomography images of the head/brain without intravenous contrast. This CT exam was performed using one or more of the following dose reduction techniques: automated exposure control, adjustment of the mA and/or kV according to patient size, and/or use of iterative reconstruction technique. COMPARISON: No relevant prior studies available. FINDINGS: Brain: Mild atrophy. No intracranial hemorrhage. No mass. No definite edema. Ventricles: No hydrocephalus. Bones/joints: No acute fracture. Soft tissues: Unremarkable. Vasculature: Minimal atherosclerotic disease of intracranial arteries. Sinuses: Small LEFT maxillary retention cyst. Mastoid air cells: No mastoid effusion. Orbits: Unremarkable as visualized. IMPRESSION: 1. No definite acute intracranial abnormality. 2. Incidental/non-acute findings are described above.
[2017-05-14] MEDS ORDERED: cefTRIAXone IV 1 gm in Dextros 50 ML IVPB ONE (00:21)
--- NOTE | 2017-05-14 00:50 | CT ---
EXAM: CT Angiography Chest With Intravenous Contrast CLINICAL HISTORY: 56 years old, female; Pain; Chest pain; Additional info: HX of dvt, TECHNIQUE: Axial computed tomographic angiography images of the chest with intravenous contrast using pulmonary embolism protocol. This CT exam was performed using one or more of the following dose reduction techniques: automated exposure control, adjustment of the mA and/or kV according to patient size, and/or use of iterative reconstruction technique. MIP reconstructed images were created and reviewed. Coronal and sagittal reformatted images were created and reviewed. CONTRAST: 100 mL of [id number] administered intravenously. COMPARISON: No relevant prior studies available. FINDINGS: Limitations: Suboptimal timing of bolus. Pulmonary arteries: Several filling defects within lobar, segmental, subsegmental branches. No saddle embolus. Aorta: No aneurysm. No dissection. Lungs: Multiple pulmonary nodules/ill-defined nodular opacities, up to 0.8 cm. No consolidation. Pleural space: No significant effusion. No pneumothorax. Heart: No cardiomegaly. Trace pericardial effusion. Bones/joints: No acute fracture. No dislocation. Soft tissues: Unremarkable. Lymph nodes: No pathologically enlarged lymph nodes. Liver: Multiple hypodense lesions, indeterminate by CT criteria. Spleen: Incomplete enhancement of spleen, limiting evaluation. IMPRESSION: 1. Pulmonary emboli. 2. Pulmonary nodules, indeterminate. Metastatic disease not excluded. Followup as clinically warranted. 3. Liver lesions, indeterminate. Metastatic disease not excluded. Followup as clinically warranted. 4. Incidental/non-acute findings are described above.
--- NOTE | 2017-05-14 01:08 | CP.PCM.HP ---
Addendum entered and electronically signed by Jeannette Peterson DO 05/14/17 02:41 : Assessment and Plan: Headache * Head CT w/o contrast: 1. No definite acute intracranial abnormality. 2. Incidental/non-acute findings are described above. Original Note: <Jeannette Peterson - Last Filed: 05/14/17 02:32> History of Present Illness - History of Present Illness History of Present Illness: Medicine Note CC: Chest pain HPI: 56F with PMHx of HTN, HLD, DVT (04/2017) presented to the ED complaining of chest pain x 1 day. She reported she woke up this morning not feeling herself with a severe headache. She had slight chest discomfort which worsened throughout the day. She reported prior to midnight tonight the chest pain became so severe she felt SOB. She discussed it as pressure like pain that radiated to her back. Upon arrival to the ED, with her recent history of DVT and new onset SOB, CTA was done and showed. Denied fever, chills, abdominal pain , n/v/d/c, or urinary symptoms. PMHx - HTN, HLD, DVT (04/2017) PSHx- denies Meds - as per [facility] Allergies - NKDA SHx - smokes 1/3 pack a day for 40 years, denies drug or alcohol use, lives with her daughter in [place] - father had "heart problems", mother of a stoke after having peptic ulcer and was on a vent PMD - Dr. Mcmillan Present on Admission - Present on Admission Any Indicators Present on Admission: No Past Patient History - Past Medical History & Family History Past Medical History?: Yes - Past Social History Smoking Status: Light Smoker < 10 Cigarettes Daily - CARDIAC Hx Hypercholesterolemia: Yes Hx Hypertension: Yes - PULMONARY Hx Respiratory Disorders: No - NEUROLOGICAL Hx Neurological Disorder: No - HEENT Hx HEENT Problems: Yes Other/Comment: GLASSES FOR READING - RENAL Hx Chronic Kidney Disease: No - ENDOCRINE/METABOLIC Hx Endocrine Disorders: No - HEMATOLOGICAL/ONCOLOGICAL Hx Blood Disorders: No - INTEGUMENTARY Hx Dermatological Problems: No - MUSCULOSKELETAL/RHEUMATOLOGICAL Hx Musculoskeletal Disorders: No Hx Falls: No - GASTROINTESTINAL Hx Gastrointestinal Disorders: No - GENITOURINARY/GYNECOLOGICAL Hx Genitourinary Disorders: No - PSYCHIATRIC Hx Substance Use: No - SURGICAL HISTORY Hx Surgeries: No Other/Comment: CYST LEFT BREAST YEARS - ANESTHESIA Hx Anesthesia: No Meds Allergies/Adverse Reactions: Allergies Allergy/AdvReac Type Severity Reaction Status Date / Time No Known Allergies Allergy Verified 05/02/17 15:29 Results - Vital Signs Recent Vital Signs: Last Vital Signs Temp 98 F 05/13/17 23:00 Pulse 84 05/13/17 23:17 Resp 20 05/13/17 23:17 BP 132/84 05/13/17 23:17 Pulse Ox 97 05/13/17 23:17 - Labs Result Diagrams: 05/13/17 22:31 05/13/17 22:31 Labs: Laboratory Results - last 24 hr 05/13/17 05/13/17 05/13/17 22:31 22:31 22:31 WBC 9.1 RBC 3.79 L Hgb 11.2 Hct 34.1 MCV 89.9 MCH 29.7 MCHC 33.0 RDW 13.0 Plt Count 171 MPV 9.7 Neut % (Auto) 73.5 Lymph % (Auto) 14.4 L [place] % (Auto) 8.2 Eos % (Auto) 3.3 Baso % (Auto) 0.6 Neut # 6.7 Lymph # 1.3 [place] # 0.7 Eos # 0.3 Baso # 0.1 PT 20.6 H INR 1.8 APTT 29 Sodium 131 L Potassium 3.6 Chloride 98 Carbon Dioxide 23 Anion Gap 13 BUN 7 Creatinine 0.7 Est GFR ( Amer) > 60 Est GFR (Non-Af Amer) > 60 Random Glucose 124 H Calcium 9.1 Total Bilirubin 1.2 AST 54 H D ALT 34 Alkaline Phosphatase 349 H D Troponin I 0.5120 H* Total Protein 6.9 Albumin 3.6 Globulin 3.2 Albumin/Globulin Ratio 1.1 Urine Color Urine Clarity Urine pH Ur Specific [place] Urine Protein Urine Glucose (UA) Urine Ketones Urine Blood Urine Nitrate Urine Bilirubin Urine Urobilinogen Ur Leukocyte Esterase Urine WBC (Auto) Urine RBC (Auto) Ur Squamous Epith Cells Ur Transition Epith Cell Urine Bacteria 05/13/17 23:13 WBC RBC Hgb Hct MCV MCH MCHC RDW Plt Count MPV Neut % (Auto) Lymph % (Auto) [place] % (Auto) Eos % (Auto) Baso % (Auto) Neut # Lymph # [place] # Eos # Baso # PT INR APTT Sodium Potassium Chloride Carbon Dioxide Anion Gap BUN Creatinine Est GFR ( Amer) Est GFR (Non-Af Amer) Random Glucose Calcium Total Bilirubin AST ALT Alkaline Phosphatase Troponin I Total Protein Albumin Globulin Albumin/Globulin Ratio Urine Color [place] Urine Clarity Hazy Urine pH 5.0 Ur Specific [place] 1.019 Urine Protein 2+ H Urine Glucose (UA) Normal Urine Ketones 1+ H Urine Blood 1+ H Urine Nitrate Negative Urine Bilirubin Negative Urine Urobilinogen 4.0 H Ur Leukocyte Esterase 2+ H Urine WBC (Auto) 32 H Urine RBC (Auto) 13 H Ur Squamous Epith Cells 39 H Ur Transition Epith Cell 1 Urine Bacteria Rare Assessment & Plan - Assessment and Plan (Free Text) Assessment: 56F with PMHx of HTN, HLD, and recently diagnosed DVT presented to the ED with chest pain x 1 day. Plan: Pulmonary Embolism * SOB, chest pain * CTA: 1. Pulmonary emboli. 2. Pulmonary nodules, indeterminate. Metastatic disease not excluded. Followup as clinically warranted. 3. Liver lesions, indeterminate. Metastatic disease not excluded. Followup as clinically warranted. 4. Incidental/non-acute findings are described above. * Therapeutic Lovenox 100mg SC BID started NSTEMI * EKG: NSR @ 90 BPM * Troponin 0.5120 * Cardiology consulted - Dr. Hand, help appreciated * F/U EKGs and JANETTE x 2, lipid panel, ECHO Right Lower Extremity DVT * Diagnosed 04/2017, started on Eliquis currently on 5mg BID - will be held and started on therapeutic lovenox due to PE Urinary Tract Infection * UA: + LE * Rocephin 1 gm IVP daily * F/U urine culture Lung Nodules noted on CT Scan * CTA: Pulmonary nodules, indeterminate. Metastatic disease not excluded. Followup as clinically warranted. 3. Liver lesions, indeterminate. Metastatic disease not excluded. Followup as clinically warranted. * Monitor HTN * Continued home medications: Valsartan 40mg PO daily HLD * Crestor 10mg PO QHS Constipation * Colace * Miralax Prophylactic Measures * GI PPX: Protonix 40mg PO daily * DVT PPX: Therapeutic lovenox * Heart Healthy Diet * Zofran PRN DW Kristen Ma DO, PGY-1 <Rangel Glover - Last Filed: 05/14/17 06:29> Results - Vital Signs Recent Vital Signs: Last Vital Signs Temp 97.8 F 05/14/17 02:00 Pulse 65 05/14/17 02:00 Resp 20 05/14/17 02:00 BP 151/80 H 05/14/17 02:00 Pulse Ox 97 05/14/17 02:00 - Labs Result Diagrams: 05/13/17 22:31 05/13/17 22:31 Assessment & Plan - Date & Time Date: 05/14/17 (I have seen and examined the patient. I agree with the findings and plan of care as documented by Dr. Peterson. Patient with pulmonary emboli. Originally on Eliquis due to DVT, but now with PE. Stop Eliquis and start therapeutic Lovenox. NSTEMI. ROMIx3 with EKG. Aspirin and Statin. Cardio Consult. Monitor vitals closely. 2D Echo. Also with UTI. Rocephin for now. Check urine and blood cultures. Monitor for acute changes.) Time: 06:28 Attending/Attestation - Attestation I have personally seen and examined this patient.: Yes I have fully participated in the care of the patient.: Yes I have reviewed all pertinent clinical information: Yes
[2017-05-14] MEDS ORDERED: POLYETHYLENE GLYCOL 3350 17 GM/Dose PACKET PO ONE (02:06)
[2017-05-14 08:21] LABS: BASO % 0.6 % (0.0-2.0); EOS # 0.3 K/uL (0.0-0.7); EOS % 4.1 % (0.0-4.0); HEMOGLOBIN 10.5 g/dL (11.0-16.0); LYMPH # 1.1 K/uL (1.0-4.3); LYMPH % 16.8 % (20.0-40.0); MEAN CELL VOLUME 89.5 fL (81.0-99.0); MEAN CORPUSCULAR HGB CONC 33.5 g/dL (33.0-37.0); MEAN PLATELET VOLUME 9.2 fL (7.2-11.7); MONO # 0.6 K/uL (0.0-0.8); MONO % 9.4 % (0.0-10.0); NEUT # 4.6 K/uL (1.8-7.0); NEUT % 69.1 % (50.0-75.0); RBC 3.51 Mil/uL (3.80-5.20); WHITE BLOOD COUNT 6.7 K/uL (4.8-10.8)
[2017-05-14 08:45] LABS: ALBUMIN 3.3 g/dL (3.5-5.0)
[2017-05-14 08:47] LABS: CK-MB 7.36 ng/mL (0.0-3.38)
[2017-05-14 08:48] LABS: GFR AFRICAN-AMERICAN > 60; GFR NON-AFRICAN AMERICAN > 60
[2017-05-14 08:49] LABS: ALT/SGPT 35 U/L (9-52); AST/SGOT 47 U/L (14-36); BLOOD UREA NITROGEN 7 mg/dL (7-17); CALCIUM 8.8 mg/dl (8.6-10.4)
[2017-05-14 08:50] LABS: HDL CHOLESTEROL 28 mg/dL (30-70)
[2017-05-14 09:00] LABS: LDL CHOLESTEROL 65 mg/dL (0-129)
[2017-05-14] MEDS: Pantoprazole 40 mg EC Tab PO SCH (10:08)
[2017-05-14] MEDS: Enoxaparin 100 mg Syringe SC SCH ×2 (10:08→21:47)
--- NOTE | 2017-05-14 10:22 | RAD ---
PROCEDURE: CHEST RADIOGRAPH, 1 VIEW HISTORY: chest pain COMPARISON: None available. FINDINGS: LUNGS: No focal consolidation. There is a relative lucent appearance of the right luann thorax possibly due to asymmetric patient positioning PLEURA: No pneumothorax or pleural fluid seen. CARDIOVASCULAR: Normal. OSSEOUS STRUCTURES: No significant abnormalities. VISUALIZED UPPER ABDOMEN: Normal. OTHER FINDINGS: None. IMPRESSION: No acute consolidation
[2017-05-14 15:16] LABS: CK-MB 6.43 ng/mL (0.0-3.38)
--- NOTE | 2017-05-14 15:36 | CP.PCM.CON ---
History of Present Illness - History of Present Illness History of Present Illness: Reason for consultation: chest pain and shortness of breath/pulmonary embolism 56F with PMHx of HTN, HLD, DVT (04/2017) presented to the ED complaining of chest pain and SOB. She discussed it as pressure like pain that radiated to her back. Upon arrival to the ED, with her recent history of DVT and new onset SOB, CTA was done and showed. Denied fever, chills, abdominal pain, n/v/d/c, or urinary symptoms. pt was recently DC home on [employer]. Patient states she is been compliant but family contradicts PMHx - HTN, HLD, DVT (04/2017) PSHx- denies Meds - as per MAR Allergies - NKDA SHx - smokes 1/3 pack a day for 40 years, denies drug or alcohol use, lives with her daughter in [place] FHx - father had "heart problems", mother of a stoke after having peptic ulcer and was on a vent Review of Systems - Review of Systems All systems: reviewed and no additional remarkable complaints except (chest pain and shortness of breath) Past Patient History - Past Medical History & Family History Past Medical History?: Yes - Past Social History Smoking Status: Light Smoker < 10 Cigarettes Daily - CARDIAC Hx Hypercholesterolemia: Yes Hx Hypertension: Yes - PULMONARY Hx Respiratory Disorders: No - NEUROLOGICAL Hx Neurological Disorder: No - HEENT Hx HEENT Problems: Yes Other/Comment: GLASSES FOR READING - RENAL Hx Chronic Kidney Disease: No - ENDOCRINE/METABOLIC Hx Endocrine Disorders: No - HEMATOLOGICAL/ONCOLOGICAL Hx Blood Disorders: No - INTEGUMENTARY Hx Dermatological Problems: No - MUSCULOSKELETAL/RHEUMATOLOGICAL Hx Musculoskeletal Disorders: No Hx Falls: No - GASTROINTESTINAL Hx Gastrointestinal Disorders: No - GENITOURINARY/GYNECOLOGICAL Hx Genitourinary Disorders: No - PSYCHIATRIC Hx Substance Use: No - SURGICAL HISTORY Hx Surgeries: No Other/Comment: CYST LEFT BREAST YEARS - ANESTHESIA Hx Anesthesia: No Meds Allergies/Adverse Reactions: Allergies Allergy/AdvReac Type Severity Reaction Status Date / Time No Known Allergies Allergy Verified 05/02/17 15:29 - Medications Medications: Current Medications Acetaminophen (Tylenol 325mg Tab) 650 mg PO Q6 PRN PRN Reason: Pain, Mild (1-3) Aspirin (Ecotrin) 81 mg PO DAILY [facility] Last Admin: 05/14/17 10:08 Dose: 81 mg Docusate Sodium (Colace) 100 mg PO BID PRN PRN Reason: Constipation Last Admin: 05/14/17 10:08 Dose: 100 mg Enoxaparin Sodium (Lovenox) 100 mg SC Q12 [facility] Last Admin: 05/14/17 10:08 Dose: 100 mg Ceftriaxone Sodium 1 gm/ (Sodium Chloride) 100 mls @ 100 mls/hr IVPB DAILY [facility] Last Admin: 05/14/17 10:07 Dose: 100 mls/hr Losartan Potassium (Cozaar) 25 mg PO DAILY [facility] Last Admin: 05/14/17 10:08 Dose: 25 mg Ondansetron HCl (Zofran Inj) 4 mg IVP Q6 PRN PRN Reason: Nausea/Vomiting Pantoprazole Sodium (Protonix Ec Tab) 40 mg PO DAILY [facility] Last Admin: 05/14/17 10:08 Dose: 40 mg Rosuvastatin Calcium (Crestor) 10 mg PO [facility] Physical Exam - Constitutional Appears: No Acute Distress - Head Exam Head Exam: ATRAUMATIC, NORMOCEPHALIC - Eye Exam Eye Exam: Normal appearance - ENT Exam ENT Exam: Mucous Membranes Moist - Neck Exam Neck exam: Positive for: Normal Inspection - Respiratory Exam Respiratory Exam: Clear to Auscultation Bilateral - Cardiovascular Exam Cardiovascular Exam: REGULAR RHYTHM - GI/Abdominal Exam GI & Abdominal Exam: Normal Bowel Sounds - Extremities Exam Extremities exam: Positive for: normal inspection - Neurological Exam Neurological exam: Alert, Oriented x3 Results - Vital Signs Recent Vital Signs: Last Vital Signs Temp 97.6 F 05/14/17 07:00 Pulse 81 05/14/17 08:00 Resp 20 05/14/17 07:00 BP 134/77 05/14/17 07:00 Pulse Ox 94 L 05/14/17 07:00 - Labs Result Diagrams: 05/15/17 07:17 05/15/17 07:14 Labs: Laboratory Results - last 24 hr 05/14/17 05/14/17 05/14/17 08:11 08:11 08:11 WBC 6.7 RBC 3.51 L Hgb 10.5 L Hct 31.5 L MCV 89.5 MCH 30.0 MCHC 33.5 RDW 13.0 Plt Count 144 MPV 9.2 Neut % (Auto) 69.1 Lymph % (Auto) 16.8 L [place] % (Auto) 9.4 Eos % (Auto) 4.1 H Baso % (Auto) 0.6 Neut # 4.6 Lymph # 1.1 [place] # 0.6 Eos # 0.3 Baso # 0.0 Sodium 131 L Potassium 3.6 Chloride 94 L Carbon Dioxide 25 Anion Gap 16 BUN 7 Creatinine 0.7 Est GFR ( Amer) > 60 Est GFR (Non-Af Amer) > 60 Random Glucose 101 Calcium 8.8 Total Bilirubin 1.1 AST 47 H ALT 35 Alkaline Phosphatase 310 H Total Creatine Kinase 85 CK-MB (Mass) 7.36 H Troponin I, Quant 1.0900 H* Total Protein 6.4 Albumin 3.3 L Globulin 3.2 Albumin/Globulin Ratio 1.0 Triglycerides 92 Cholesterol 117 LDL Cholesterol Direct 65 HDL Cholesterol 28 L 05/14/17 14:47 WBC RBC Hgb Hct MCV MCH MCHC RDW Plt Count MPV Neut % (Auto) Lymph % (Auto) [place] % (Auto) Eos % (Auto) Baso % (Auto) Neut # Lymph # [place] # Eos # Baso # Sodium Potassium Chloride Carbon Dioxide Anion Gap BUN Creatinine Est GFR ( Amer) Est GFR (Non-Af Amer) Random Glucose Calcium Total Bilirubin AST ALT Alkaline Phosphatase Total Creatine Kinase 79 CK-MB (Mass) 6.43 H Troponin I, Quant Total Protein Albumin Globulin Albumin/Globulin Ratio Triglycerides Cholesterol LDL Cholesterol Direct HDL Cholesterol Assessment & Plan (1) Pulmonary emboli Status: Acute Comment: CAT scan of the chest consistent with bilateral pulmonary embolism. Patient hemodynamically stable. Continue Lovenox. Echocardiogram. Repeat venous Doppler of lower extremities to see extension of blood clot. Consider IVC filter. Cardiology evaluation for elevated troponin (2) Lung nodules Status: Acute (3) NSTEMI (non-ST elevated myocardial infarction) Status: Acute (4) Deep venous thrombosis of lower extremity Status: Resolved
[2017-05-14] MEDS: Morphine 4 MG/ML VIAL IV PRN ×2 (16:35→22:06)
--- NOTE | 2017-05-14 20:48 | CP.PCM.PN ---
<Lynda Bansal - Last Filed: 05/14/17 20:45> Subjective - Date & Time of Evaluation Date of Evaluation: 05/14/17 Time of Evaluation: 20:45 - Subjective Subjective: Medicine Progress Note- Dr. Dozier Service Patient was seen and examined at bedside. She reports having abdominal pain that is worse with eating. Patient reports her shortness of breath has improved. She has not had a bowel movement in 2 days and is not eating due to her abdominal pain. Patient denies chest pain, palpitations, dizziness, changes in vision, nausea, vomiting, and diarrhea. Objective - Vital Signs/Intake and Output Vital Signs (last 24 hours): Temp Pulse Resp BP Pulse Ox 98.2 F 69 20 146/83 95 05/14/17 15:54 05/14/17 15:54 05/14/17 15:54 05/14/17 15:54 05/14/17 15:54 - Medications Medications: Current Medications Acetaminophen (Tylenol 325mg Tab) 650 mg PO Q6 PRN PRN Reason: Pain, Mild (1-3) Aspirin (Ecotrin) 81 mg PO DAILY [facility] Last Admin: 05/14/17 10:08 Dose: 81 mg Docusate Sodium (Colace) 100 mg PO BID PRN PRN Reason: Constipation Last Admin: 05/14/17 10:08 Dose: 100 mg Enoxaparin Sodium (Lovenox) 100 mg SC Q12 [facility] Last Admin: 05/14/17 10:08 Dose: 100 mg Ceftriaxone Sodium 1 gm/ (Sodium Chloride) 100 mls @ 100 mls/hr IVPB DAILY [facility] Last Admin: 05/14/17 10:07 Dose: 100 mls/hr Losartan Potassium (Cozaar) 25 mg PO DAILY [facility] Last Admin: 05/14/17 10:08 Dose: 25 mg Morphine Sulfate (Morphine) 2 mg IV Q6 PRN PRN Reason: Pain, moderate (4-7) Last Admin: 05/14/17 16:35 Dose: 2 mg Ondansetron HCl (Zofran Inj) 4 mg IVP Q6 PRN PRN Reason: Nausea/Vomiting Pantoprazole Sodium (Protonix Ec Tab) 40 mg PO DAILY [facility] Last Admin: 05/14/17 10:08 Dose: 40 mg Rosuvastatin Calcium (Crestor) 10 mg PO HS [facility] - Labs Labs: 05/14/17 08:11 05/14/17 08:11 PT 20.6 SECONDS (9.7-12.2) H 05/13/17 22:31 INR 1.8 05/13/17 22:31 APTT 29 SECONDS (21-34) 05/13/17 22:31 - Constitutional Appears: No Acute Distress - Head Exam Head Exam: NORMAL INSPECTION, NORMOCEPHALIC - Eye Exam Eye Exam: EOMI, Normal appearance - ENT Exam ENT Exam: Mucous Membranes Moist - Respiratory Exam Respiratory Exam: NORMAL BREATHING PATTERN. absent: Decreased Breath Sounds - Cardiovascular Exam Cardiovascular Exam: REGULAR RHYTHM, +S1, +S2 - GI/Abdominal Exam GI & Abdominal Exam: Soft, Tenderness, Normal Bowel Sounds - Extremities Exam Extremities Exam: absent: Calf Tenderness, Pedal Edema, Tenderness - Neurological Exam Neurological Exam: Alert, Awake, Oriented x3 - Psychiatric Exam Psychiatric exam: Normal Affect, Normal Mood - Skin Skin Exam: Dry, Intact, Normal Color, Warm Assessment and Plan (1) Pulmonary emboli Assessment & Plan: * SOB, chest pain * CTA: 1. Pulmonary emboli. 2. Pulmonary nodules, indeterminate. Metastatic disease not excluded. Followup as clinically warranted. 3. Liver lesions, indeterminate. Metastatic disease not excluded. Followup as clinically warranted. 4. Incidental/non-acute findings are described above. * Therapeutic Lovenox 100mg SC BID started * Echo- F/U * ASA 81mg PO daily * Morphine 2mg IV Q PRN for pain * Hematology consult- Dr. Watkins, help appreciated * Pulmonology Consult - Dr. Johns, help appreciated Status: Acute (2) NSTEMI (non-ST elevated myocardial infarction) Assessment & Plan: * EKG: NSR @ 90 BPM * Troponin 0.5120 * Cardiology consulted - Dr. Ulloa, help appreciated * EKG- nsr @90 * JANETTE x 3 positive * lipid panel: TG 92, Chol 117, LDL 65, HDL 28 * ECHO- f/u Status: Acute (3) Lung nodules Assessment & Plan: * CTA: Pulmonary nodules, indeterminate. Metastatic disease not excluded. Followup as clinically warranted. 3. Liver lesions, indeterminate. Metastatic disease not excluded. Followup as clinically warranted. * Monitor * Pulmonology consult: Dr. Johns, help appreciated Status: Acute (4) Deep venous thrombosis of lower extremity Assessment & Plan: * Diagnosed 04/2017, started on Eliquis currently on 5mg BID - will be held and started on therapeutic lovenox due to PE * Lovenox 100mg sc Q12 Status: Resolved (5) HTN (hypertension) Assessment & Plan: Continued home medications: Valsartan 40mg PO daily Monitor BP Status: Chronic (6) Constipation Assessment & Plan: * Colace 100mg PO BID Status: Acute (7) Hyperlipemia Assessment & Plan: Crestor 10mg PO QHS Status: Chronic (8) UTI (urinary tract infection) Assessment & Plan: * UA: + LE * Rocephin 1 gm IVP daily * F/U urine culture Status: Acute (9) Abdominal pain Assessment & Plan: GI consult, Dr. Cobos, help appreicated Abdominal ultrasound- ordered Status: Acute (10) Prophylactic measure Assessment & Plan: * GI PPX: Protonix 40mg PO daily * DVT PPX: Therapeutic lovenox * Heart Healthy Diet * Zofran PRN * ASA 81mg PO Status: Acute <Dick Dozier M - Last Filed: 05/15/17 17:35> Objective - Vital Signs/Intake and Output Vital Signs (last 24 hours): Temp Pulse Resp BP Pulse Ox 98.4 F 76 18 123/83 97 05/15/17 16:00 05/15/17 16:00 05/15/17 16:00 05/15/17 16:00 05/15/17 16:00 - Medications Medications: Current Medications Acetaminophen (Tylenol 325mg Tab) 650 mg PO Q6 PRN PRN Reason: Pain, Mild (1-3) Aspirin (Ecotrin) 81 mg PO DAILY [facility] Last Admin: 05/15/17 10:30 Dose: 81 mg Enoxaparin Sodium (Lovenox) 100 mg SC Q12 [facility] Last Admin: 05/15/17 10:30 Dose: 100 mg Ceftriaxone Sodium 1 gm/ (Sodium Chloride) 100 mls @ 100 mls/hr IVPB DAILY [facility] Last Admin: 05/15/17 10:30 Dose: 100 mls/hr Losartan Potassium (Cozaar) 25 mg PO DAILY [facility] Last Admin: 05/15/17 10:30 Dose: 25 mg Morphine Sulfate (Morphine) 2 mg IV Q6 PRN PRN Reason: Pain, moderate (4-7) Last Admin: 05/15/17 13:38 Dose: 2 mg Ondansetron HCl (Zofran Inj) 4 mg IVP Q6 PRN PRN Reason: Nausea/Vomiting Pantoprazole Sodium (Protonix Ec Tab) 40 mg PO DAILY [facility] Last Admin: 05/15/17 10:30 Dose: 40 mg Polyethylene Glycol (Miralax) 17 gm PO DAILY [facility] Last Admin: 05/15/17 10:31 Dose: 17 gm Rosuvastatin Calcium (Crestor) 10 mg PO HS [facility] Last Admin: 05/14/17 21:47 Dose: 10 mg - Labs Labs: 05/15/17 07:17 05/15/17 07:14 PT 20.6 SECONDS (9.7-12.2) H 05/13/17 22:31 INR 1.8 05/13/17 22:31 APTT 29 SECONDS (21-34) 05/13/17 22:31 Attending/Attestation - Attestation I have personally seen and examined this patient.: Yes I have fully participated in the care of the patient.: Yes I have reviewed all pertinent clinical information, including history, physical exam and plan: Yes Notes (Text): 05/15/17 17:34 Patient was seen and examined at bedside Complains of abdominal pain We'll obtain abdominal ultrasound Discussed the plan of care with the resident agree with the assessment plan by the resident.
--- NOTE | 2017-05-15 01:26 | CP.PCM.CON ---
History of Present Illness - History of Present Illness History of Present Illness: 56 year old female with a history of tobacco abuse, recent acute gastrocnemius/ saphenous veins on Eliquis, admitted with shortness of breath, found to have PE , and lung/liver lesions concerning for metastatic disease. The patient reports to compliance with Eliquis. She developed acute chest discomfort with shortness of breath which brought her to the ER. In the ER a CT angio of the chest reveled PE and lung/liver lesions. Past medical history: tobacco abuse, HTN, HL, DVT Past surgical history: None Family history: Father had liver cancer Social history: close to 1/2ppd x 40 years, denies alcohol and illicit drug use. Allergies: NKA Review of systems: All remaining review of systems including HEENT, cardiovascular, respiratory, gastrointestinal, genitourinary, musculoskeletal, dermatologic, neurologic, and psychiatric are negative unless mentioned in the HPI. Past Patient History - Past Medical History & Family History Past Medical History?: Yes - Past Social History Smoking Status: Light Smoker < 10 Cigarettes Daily - CARDIAC Hx Hypercholesterolemia: Yes Hx Hypertension: Yes - PULMONARY Hx Respiratory Disorders: No - NEUROLOGICAL Hx Neurological Disorder: No - HEENT Hx HEENT Problems: Yes Other/Comment: GLASSES FOR READING - RENAL Hx Chronic Kidney Disease: No - ENDOCRINE/METABOLIC Hx Endocrine Disorders: No - HEMATOLOGICAL/ONCOLOGICAL Hx Blood Disorders: No - INTEGUMENTARY Hx Dermatological Problems: No - MUSCULOSKELETAL/RHEUMATOLOGICAL Hx Musculoskeletal Disorders: No Hx Falls: No - GASTROINTESTINAL Hx Gastrointestinal Disorders: No - GENITOURINARY/GYNECOLOGICAL Hx Genitourinary Disorders: No - PSYCHIATRIC Hx Substance Use: No - SURGICAL HISTORY Hx Surgeries: No Other/Comment: CYST LEFT BREAST YEARS - ANESTHESIA Hx Anesthesia: No Meds Allergies/Adverse Reactions: Allergies Allergy/AdvReac Type Severity Reaction Status Date / Time No Known Allergies Allergy Verified 05/02/17 15:29 - Medications Medications: Current Medications Acetaminophen (Tylenol 325mg Tab) 650 mg PO Q6 PRN PRN Reason: Pain, Mild (1-3) Aspirin (Ecotrin) 81 mg PO DAILY [facility] Last Admin: 05/14/17 10:08 Dose: 81 mg Docusate Sodium (Colace) 100 mg PO BID PRN PRN Reason: Constipation Last Admin: 05/14/17 10:08 Dose: 100 mg Enoxaparin Sodium (Lovenox) 100 mg SC Q12 [facility] Last Admin: 05/14/17 21:47 Dose: 100 mg Ceftriaxone Sodium 1 gm/ (Sodium Chloride) 100 mls @ 100 mls/hr IVPB DAILY [facility] Last Admin: 05/14/17 10:07 Dose: 100 mls/hr Losartan Potassium (Cozaar) 25 mg PO DAILY [facility] Last Admin: 05/14/17 10:08 Dose: 25 mg Morphine Sulfate (Morphine) 2 mg IV Q6 PRN PRN Reason: Pain, moderate (4-7) Last Admin: 05/14/17 22:06 Dose: 2 mg Ondansetron HCl (Zofran Inj) 4 mg IVP Q6 PRN PRN Reason: Nausea/Vomiting Pantoprazole Sodium (Protonix Ec Tab) 40 mg PO DAILY [facility] Last Admin: 05/14/17 10:08 Dose: 40 mg Rosuvastatin Calcium (Crestor) 10 mg PO HS [facility] Last Admin: 05/14/17 21:47 Dose: 10 mg Physical Exam - Head Exam Head Exam: ATRAUMATIC - Eye Exam Eye Exam: Normal appearance - ENT Exam ENT Exam: Mucous Membranes Dry - Respiratory Exam Respiratory Exam: NORMAL BREATHING PATTERN - Cardiovascular Exam Cardiovascular Exam: +S1, +S2 - GI/Abdominal Exam GI & Abdominal Exam: Normal Bowel Sounds - Extremities Exam Extremities exam: Positive for: pedal edema - Neurological Exam Neurological exam: Oriented x3 - Psychiatric Exam Psychiatric exam: Normal Affect, Normal Mood - Skin Skin Exam: Warm Results - Vital Signs Recent Vital Signs: Last Vital Signs Temp 98.2 F 05/14/17 15:54 Pulse 69 05/14/17 15:54 Resp 20 05/14/17 15:54 BP 146/83 05/14/17 15:54 Pulse Ox 95 05/14/17 15:54 - Labs Result Diagrams: 05/15/17 07:17 05/15/17 07:14 Labs: Laboratory Results - last 24 hr 05/14/17 05/14/17 05/14/17 08:11 08:11 08:11 WBC 6.7 RBC 3.51 L Hgb 10.5 L Hct 31.5 L MCV 89.5 MCH 30.0 MCHC 33.5 RDW 13.0 Plt Count 144 MPV 9.2 Neut % (Auto) 69.1 Lymph % (Auto) 16.8 L [place] % (Auto) 9.4 Eos % (Auto) 4.1 H Baso % (Auto) 0.6 Neut # 4.6 Lymph # 1.1 [place] # 0.6 Eos # 0.3 Baso # 0.0 Sodium 131 L Potassium 3.6 Chloride 94 L Carbon Dioxide 25 Anion Gap 16 BUN 7 Creatinine 0.7 Est GFR ( Amer) > 60 Est GFR (Non-Af Amer) > 60 Random Glucose 101 Calcium 8.8 Total Bilirubin 1.1 AST 47 H ALT 35 Alkaline Phosphatase 310 H Total Creatine Kinase 85 CK-MB (Mass) 7.36 H Troponin I, Quant 1.0900 H* Total Protein 6.4 Albumin 3.3 L Globulin 3.2 Albumin/Globulin Ratio 1.0 Triglycerides 92 Cholesterol 117 LDL Cholesterol Direct 65 HDL Cholesterol 28 L 05/14/17 14:47 WBC RBC Hgb Hct MCV MCH MCHC RDW Plt Count MPV Neut % (Auto) Lymph % (Auto) [place] % (Auto) Eos % (Auto) Baso % (Auto) Neut # Lymph # [place] # Eos # Baso # Sodium Potassium Chloride Carbon Dioxide Anion Gap BUN Creatinine Est GFR ( Amer) Est GFR (Non-Af Amer) Random Glucose Calcium Total Bilirubin AST ALT Alkaline Phosphatase Total Creatine Kinase 79 CK-MB (Mass) 6.43 H Troponin I, Quant 0.9650 H* Total Protein Albumin Globulin Albumin/Globulin Ratio Triglycerides Cholesterol LDL Cholesterol Direct HDL Cholesterol Assessment & Plan (1) Pulmonary emboli Assessment and Plan: DVT with Eliquis failure, agree with therapeutic lovenox ?underlying malignancy Status: Acute (2) Lesion of lung Assessment and Plan: rule out malignancy Status: Acute (3) Liver lesion Assessment and Plan: rule out malignancy recommend biopsy of most accessible lesion tumor markers; CEA, AFP, CA 19-9 Status: Acute (4) Anemia Assessment and Plan: ferritin, retic count, b12, folate, FOBT to further characterize Status: Acute (5) Coagulopathy Assessment and Plan: secondary to anticoagulation Status: Acute (6) Tobacco abuse Assessment and Plan: smoking cessation discussed at length Thank you for this interesting consult. Status: Acute
[2017-05-15] MEDS: Morphine 4 MG/ML VIAL IV PRN ×3 (07:40→20:07)
[2017-05-15 07:52] LABS: BASO % 0.5 % (0.0-2.0); EOS # 0.3 K/uL (0.0-0.7); EOS % 4.1 % (0.0-4.0); HEMOGLOBIN 10.6 g/dL (11.0-16.0); LYMPH # 0.9 K/uL (1.0-4.3); LYMPH % 12.6 % (20.0-40.0); MEAN CELL VOLUME 89.4 fL (81.0-99.0); MEAN CORPUSCULAR HEMOGLOBIN 29.9 pg (27.0-31.0); MEAN CORPUSCULAR HGB CONC 33.4 g/dL (33.0-37.0); MEAN PLATELET VOLUME 9.5 fL (7.2-11.7); MONO # 0.6 K/uL (0.0-0.8); MONO % 8.9 % (0.0-10.0); NEUT # 5.4 K/uL (1.8-7.0); NEUT % 73.9 % (50.0-75.0); RBC 3.54 Mil/uL (3.80-5.20); RED CELL DISTRIBUTION WIDTH 12.7 % (11.5-14.5); WHITE BLOOD COUNT 7.3 K/uL (4.8-10.8)
[2017-05-15 07:55] LABS: ALBUMIN 3.2 g/dL (3.5-5.0)
[2017-05-15 07:58] LABS: ALB/GLOB RATIO 1.1 (1.0-2.1); AST/SGOT 56 U/L (14-36); BLOOD UREA NITROGEN 7 mg/dL (7-17); GFR AFRICAN-AMERICAN > 60; GFR NON-AFRICAN AMERICAN > 60
[2017-05-15 07:59] LABS: ALT/SGPT 37 U/L (9-52); CALCIUM 8.9 mg/dl (8.6-10.4); MAGNESIUM 1.9 mg/dL (1.6-2.3)
--- NOTE | 2017-05-15 08:40 | US ---
HISTORY: Abdominal Pain COMPARISON: None. TECHNIQUE: Sonographic evaluation of the abdomen. FINDINGS: LIVER: Measures 20.1 cm. Diffusely increased echogenicity of the liver parenchyma. Multiple ill-defined hypoechoic masses, largest approximately 3.8 cm in greatest dimension. Suspicious for metastasis. No biliary ductal dilatation. Smooth contour. GALLBLADDER: Mural thickening up to 5 mm. No evidence of cholelithiasis. Sludge noted. No pericholecystic fluid. Negative sonographic Madrigal sign. COMMON BILE DUCT: Measures 6 mm. No stones. No dilatation. PANCREAS: Poorly visualized due to overlying bowel gas. RIGHT KIDNEY: Measures 12.0cm. Normal echogenicity. No calculus, mass, or hydronephrosis. LEFT KIDNEY: Measures 11.8cm. Normal echogenicity. No calculus, mass, or hydronephrosis. SPLEEN: Mild splenomegaly. The spleen measures 13.2 cm in greatest dimension. No focal mass. AORTA: No aneurysmal dilatation. IVC: Unremarkable. OTHER FINDINGS: None. IMPRESSION: Hepatosplenomegaly. Fatty infiltration of the liver. Multiple ill-defined hepatic masses suspicious for metastatic disease. Further evaluation is advised. No evidence of cholelithiasis. Thickened gallbladder wall, nonspecific. Limited visualization of pancreas.
--- NOTE | 2017-05-15 09:26 | CP.PCM.PN ---
<Lynda Bansal - Last Filed: 05/15/17 21:05> Subjective - Date & Time of Evaluation Date of Evaluation: 05/15/17 Time of Evaluation: 09:25 - Subjective Subjective: Medicine Progress Note- Dr. Dozier Service Patient was seen and examined at bedside in no acute distress. She reports having severe abdominal pain that has not improved. She states she has no appetite due to her abdominal pain. She reports not having a bowel movement. Patient denies having chest pain, palpitations, shortness of breath, nausea, vomiting, and diarrhea. Objective - Vital Signs/Intake and Output Vital Signs (last 24 hours): Temp Pulse Resp BP Pulse Ox 98.6 F 78 20 138/76 96 05/14/17 23:55 05/15/17 08:00 05/14/17 23:55 05/14/17 23:55 05/14/17 23:55 - Medications Medications: Current Medications Acetaminophen (Tylenol 325mg Tab) 650 mg PO Q6 PRN PRN Reason: Pain, Mild (1-3) Aspirin (Ecotrin) 81 mg PO DAILY [facility] Last Admin: 05/14/17 10:08 Dose: 81 mg Docusate Sodium (Colace) 100 mg PO BID PRN PRN Reason: Constipation Last Admin: 05/14/17 10:08 Dose: 100 mg Enoxaparin Sodium (Lovenox) 100 mg SC Q12 [facility] Last Admin: 05/14/17 21:47 Dose: 100 mg Ceftriaxone Sodium 1 gm/ (Sodium Chloride) 100 mls @ 100 mls/hr IVPB DAILY [facility] Last Admin: 05/14/17 10:07 Dose: 100 mls/hr Losartan Potassium (Cozaar) 25 mg PO DAILY [facility] Last Admin: 05/14/17 10:08 Dose: 25 mg Morphine Sulfate (Morphine) 2 mg IV Q6 PRN PRN Reason: Pain, moderate (4-7) Last Admin: 05/15/17 07:40 Dose: 2 mg Ondansetron HCl (Zofran Inj) 4 mg IVP Q6 PRN PRN Reason: Nausea/Vomiting Pantoprazole Sodium (Protonix Ec Tab) 40 mg PO DAILY [facility] Last Admin: 05/14/17 10:08 Dose: 40 mg Rosuvastatin Calcium (Crestor) 10 mg PO HS [facility] Last Admin: 05/14/17 21:47 Dose: 10 mg - Labs Labs: 05/15/17 07:17 05/15/17 07:14 PT 20.6 SECONDS (9.7-12.2) H 05/13/17 22:31 INR 1.8 05/13/17 22:31 APTT 29 SECONDS (21-34) 05/13/17 22:31 - Constitutional Appears: No Acute Distress - Head Exam Head Exam: NORMAL INSPECTION, NORMOCEPHALIC - Eye Exam Eye Exam: EOMI, Normal appearance - ENT Exam ENT Exam: Mucous Membranes Moist - Neck Exam Neck Exam: Normal Inspection - Respiratory Exam Respiratory Exam: Decreased Breath Sounds, Clear to Ausculation Bilateral, NORMAL BREATHING PATTERN. absent: Rhonchi, Wheezes - Cardiovascular Exam Cardiovascular Exam: REGULAR RHYTHM, +S1, +S2 - GI/Abdominal Exam GI & Abdominal Exam: Tenderness, Normal Bowel Sounds - Extremities Exam Extremities Exam: absent: Calf Tenderness, Pedal Edema, Tenderness - Neurological Exam Neurological Exam: Alert, Awake, Oriented x3 - Psychiatric Exam Psychiatric exam: Normal Affect, Normal Mood - Skin Skin Exam: Dry, Intact, Normal Color, Warm Assessment and Plan (1) Pulmonary emboli Assessment & Plan: * SOB, chest pain * CTA: 1. Pulmonary emboli. 2. Pulmonary nodules, indeterminate. Metastatic disease not excluded. Followup as clinically warranted. 3. Liver lesions, indeterminate. Metastatic disease not excluded. Followup as clinically warranted. 4. Incidental/non-acute findings are described above. * Therapeutic Lovenox 100mg SC BID started * Echo- F/U * ASA 81mg PO daily * Morphine 2mg IV Q PRN for pain * Hematology consult- Dr. Watkins, help appreciated * Pulmonology Consult - Dr. Johns, help appreciated * waiting for venous dopplers and echo results * continue Lovenox Status: Acute (2) NSTEMI (non-ST elevated myocardial infarction) Assessment & Plan: * EKG: NSR @ 90 BPM * Troponin 0.5120 * Cardiology consulted - Dr. Ulloa, help appreciated * EKG- nsr @90 * JANETTE x 3 positive * lipid panel: TG 92, Chol 117, LDL 65, HDL 28 * ECHO- f/u * [employer] consult- Dr. Ulloa, help appreciated * continue current management * f/u echo Status: Acute (3) Lung nodules Assessment & Plan: * CTA: Pulmonary nodules, indeterminate. Metastatic disease not excluded. Followup as clinically warranted. 3. Liver lesions, indeterminate. Metastatic disease not excluded. Followup as clinically warranted. * Monitor * Pulmonology consult: Dr. Johns, andry appreciated Status: Acute (4) Deep venous thrombosis of lower extremity Assessment & Plan: * Diagnosed 04/2017, started on Eliquis currently on 5mg BID - will be held and started on therapeutic lovenox due to PE * Lovenox 100mg sc Q12 Status: Resolved (5) HTN (hypertension) Assessment & Plan: Continued home medications: Valsartan 40mg PO daily Monitor BP Status: Chronic (6) Constipation Assessment & Plan: Abdominal ultrasound- multiple hepatic masses, suspicious of mets; hepatosplenomegaly, fatty liver, thickened gallbladder wall; Liver 20.1cm, speel 13.2cm * Colace 100mg PO BID * Miralax Status: Acute (7) Hyperlipemia Assessment & Plan: Crestor 10mg PO QHS Status: Chronic (8) UTI (urinary tract infection) Assessment & Plan: * UA: + LE * Rocephin 1 gm IVP daily * Urine culture- no growth Status: Acute (9) Abdominal pain Assessment & Plan: GI consult, Dr. Cobos, help appreicated Abdominal ultrasound- multiple hepatic masses, suspicious of mets; hepatosplenomegaly, fatty liver, thickened gallbladder wall; Liver 20.1cm, speel 13.2cm Ordered by GI: * CT triple phase liver protocol- numberous b/l lower lobe pulmonary nodules; hepatic lesions suspicious for mets, hepatomegaly, mild gallbladder wall thickening/perichoecystic edema; retroperitoneal lymph nodes measuring up to 14mm; diverticulosis * GGT 441 * AFP 3.0 * CEA 199.0 * Negative: Hep A IgM Ab, Hep Bs Antigen, Hep B core IgM Ab, Hep C Ab * Iron studies: Iron 45, TIBC 236, 19% sat, 1060 Ferritin Status: Acute (10) Prophylactic measure Assessment & Plan: * GI PPX: Protonix 40mg PO daily * DVT PPX: Therapeutic lovenox * Heart Healthy Diet * Zofran PRN * ASA 81mg PO Status: Acute <Dick Dozier M - Last Filed: 05/16/17 17:29> Objective - Vital Signs/Intake and Output Vital Signs (last 24 hours): Temp Pulse Resp BP Pulse Ox 98.2 F 72 20 116/67 98 05/16/17 15:56 05/16/17 15:56 05/16/17 15:56 05/16/17 15:56 05/16/17 15:56 Intake and Output: 05/16/17 05/16/17 06:59 18:59 Intake Total 120 360 Balance 120 360 - Medications Medications: Current Medications Acetaminophen (Tylenol 325mg Tab) 650 mg PO Q6 PRN PRN Reason: Pain, Mild (1-3) Aspirin (Ecotrin) 81 mg PO DAILY [facility] Last Admin: 05/16/17 10:15 Dose: 81 mg Enoxaparin Sodium (Lovenox) 100 mg SC Q12 [facility] Last Admin: 05/16/17 10:16 Dose: 100 mg Ceftriaxone Sodium 1 gm/ (Sodium Chloride) 100 mls @ 100 mls/hr IVPB DAILY [facility] Last Admin: 05/16/17 10:15 Dose: 100 mls/hr Losartan Potassium (Cozaar) 25 mg PO DAILY [facility] Last Admin: 05/16/17 10:15 Dose: 25 mg Morphine Sulfate (Morphine) 2 mg IV Q3H PRN PRN Reason: Pain, moderate (4-7) Last Admin: 05/16/17 14:40 Dose: 2 mg Ondansetron HCl (Zofran Inj) 4 mg IVP Q6 PRN PRN Reason: Nausea/Vomiting Pantoprazole Sodium (Protonix Ec Tab) 40 mg PO DAILY [facility] Last Admin: 05/16/17 10:15 Dose: 40 mg Polyethylene Glycol (Miralax) 17 gm PO DAILY [facility] Last Admin: 05/16/17 10:18 Dose: 17 gm Rosuvastatin Calcium (Crestor) 10 mg PO HS [facility] Last Admin: 05/15/17 21:56 Dose: 10 mg - Labs Labs: 05/16/17 07:02 05/16/17 07:02 PT 15.8 SECONDS (9.7-12.2) H 05/16/17 11:53 INR 1.4 05/16/17 11:53 APTT 29 SECONDS (21-34) 05/13/17 22:31 Attending/Attestation - Attestation I have personally seen and examined this patient.: Yes I have fully participated in the care of the patient.: Yes I have reviewed all pertinent clinical information, including history, physical exam and plan: Yes Notes (Text): 05/16/17 17:28 Patient was seen and examined at bedside with the resident Patient complains of abdominal pain CT scan of the liver report reviewed Plan for CT-guided biopsy of liver as per my discussion with oncology and gastroenterology Discussed the plan of care with the resident and agree with the history and physical and assessment/plan by the resident.
--- NOTE | 2017-05-15 09:28 | CP.PCM.CON ---
<Shaniqua Thompson - Last Filed: 05/15/17 09:28> History of Present Illness - History of Present Illness History of Present Illness: Gastroenterology Fellow/PGY5 Consult Note 56 year old female with history of Hypertension, Hyperlipidemia, and recently diagnosed Right lower extremity DVT (05/02/17) on Eliquis presenting with shortness of breath and chest pain. Patient describes sudden onset of mid- sternal chest pain radiation to back, pain scale 10/10. Associated shortness of breath and nausea. patient has since had confirmed PE on CT angiography and notes resolved chest pain and shortness of breath at time of evaluation. Patient notes chronic diffuse abdominal pain for one month with endorsed outpatient ultrasound one month ago that she states showed enlarged liver and no gallstones. She notes immediate abdominal pain onset with eating and associated a twenty-five pound unintentional weight loss. Associated bloating and constipation with bowel movements every two to three days. Admits to 8 pills of Motrin taken daily for one month due to abdominal pain with recent switch to three pills of Tylenol 3 daily for the last two weeks. Denies fever, chills, sweats, vomiting, hematemesis, acid reflux, indigestion, diarrhea, hematochezia, melena, pruritis, jaundice, or scleral icterus. Prior colonoscopy three years ago at [place] endorsed to be normal. Family- father- stage IV liver cancer diagnosed at 71 years of age, Mother-PUD Social- 40 pack year history, quit 2 weeks ago; denies alcohol or illicit drug use Surgery-none Review of Systems - Review of Systems Review of Systems: A 12-point review of systems negative except for as above Past Patient History - Past Medical History & Family History Past Medical History?: Yes - Past Social History Smoking Status: Light Smoker < 10 Cigarettes Daily - CARDIAC Hx Hypercholesterolemia: Yes Hx Hypertension: Yes - PULMONARY Hx Respiratory Disorders: No - NEUROLOGICAL Hx Neurological Disorder: No - HEENT Hx HEENT Problems: Yes Other/Comment: GLASSES FOR READING - RENAL Hx Chronic Kidney Disease: No - ENDOCRINE/METABOLIC Hx Endocrine Disorders: No - HEMATOLOGICAL/ONCOLOGICAL Hx Blood Disorders: No - INTEGUMENTARY Hx Dermatological Problems: No - MUSCULOSKELETAL/RHEUMATOLOGICAL Hx Musculoskeletal Disorders: No Hx Falls: No - GASTROINTESTINAL Hx Gastrointestinal Disorders: No - GENITOURINARY/GYNECOLOGICAL Hx Genitourinary Disorders: No - PSYCHIATRIC Hx Substance Use: No - SURGICAL HISTORY Hx Surgeries: No Other/Comment: CYST LEFT BREAST YEARS - ANESTHESIA Hx Anesthesia: No Meds Allergies/Adverse Reactions: Allergies Allergy/AdvReac Type Severity Reaction Status Date / Time No Known Allergies Allergy Verified 05/02/17 15:29 - Medications Medications: Current Medications Acetaminophen (Tylenol 325mg Tab) 650 mg PO Q6 PRN PRN Reason: Pain, Mild (1-3) Aspirin (Ecotrin) 81 mg PO DAILY [facility] Last Admin: 05/14/17 10:08 Dose: 81 mg Docusate Sodium (Colace) 100 mg PO BID PRN PRN Reason: Constipation Last Admin: 05/14/17 10:08 Dose: 100 mg Enoxaparin Sodium (Lovenox) 100 mg SC Q12 [facility] Last Admin: 05/14/17 21:47 Dose: 100 mg Ceftriaxone Sodium 1 gm/ (Sodium Chloride) 100 mls @ 100 mls/hr IVPB DAILY [facility] Last Admin: 05/14/17 10:07 Dose: 100 mls/hr Losartan Potassium (Cozaar) 25 mg PO DAILY [facility] Last Admin: 05/14/17 10:08 Dose: 25 mg Morphine Sulfate (Morphine) 2 mg IV Q6 PRN PRN Reason: Pain, moderate (4-7) Last Admin: 05/15/17 07:40 Dose: 2 mg Ondansetron HCl (Zofran Inj) 4 mg IVP Q6 PRN PRN Reason: Nausea/Vomiting Pantoprazole Sodium (Protonix Ec Tab) 40 mg PO DAILY [facility] Last Admin: 05/14/17 10:08 Dose: 40 mg Rosuvastatin Calcium (Crestor) 10 mg PO HS [facility] Last Admin: 05/14/17 21:47 Dose: 10 mg Physical Exam - Constitutional Appears: Non-toxic, No Acute Distress - Head Exam Head Exam: ATRAUMATIC, NORMOCEPHALIC - Eye Exam Eye Exam: EOMI, PERRL Pupil Exam: PERRL. absent: Miosis, Mydriatic - ENT Exam ENT Exam: Mucous Membranes Moist, Normal Oropharynx - Neck Exam Neck exam: Positive for: Full Rom, Normal Inspection - Respiratory Exam Respiratory Exam: Clear to Auscultation Bilateral. absent: Rales, Rhonchi, Wheezes - Cardiovascular Exam Cardiovascular Exam: RRR, +S1, +S2. absent: Gallop, Rubs - GI/Abdominal Exam GI & Abdominal Exam: Distended, Normal Bowel Sounds, Organomegaly, Soft, Tenderness. absent: Firm, Guarding, Rebound, Rigid Additional comments: hepatomegaly; diffuse tenderness- upper quadrants > lower quadrants - Extremities Exam Extremities exam: Positive for: normal inspection, pedal edema - Neurological Exam Neurological exam: Alert, Oriented x3 - Psychiatric Exam Psychiatric exam: Normal Affect, Normal Mood - Skin Skin Exam: Dry, Intact, Normal Color, Warm Results - Vital Signs Recent Vital Signs: Last Vital Signs Temp 98.6 F 05/14/17 23:55 Pulse 78 05/15/17 08:00 Resp 20 05/14/17 23:55 BP 138/76 05/14/17 23:55 Pulse Ox 96 05/14/17 23:55 - Labs Result Diagrams: 05/15/17 07:17 05/15/17 07:14 Labs: Laboratory Results - last 24 hr 05/14/17 05/14/17 05/15/17 08:11 14:47 07:14 WBC RBC Hgb Hct MCV MCH MCHC RDW Plt Count MPV Neut % (Auto) Lymph % (Auto) Cherry % (Auto) Eos % (Auto) Baso % (Auto) Neut # Lymph # Cherry # Eos # Baso # Sodium 135 Potassium 3.7 Chloride 100 Carbon Dioxide 25 Anion Gap 14 BUN 7 Creatinine 0.6 L Est GFR ( Amer) > 60 Est GFR (Non-Af Amer) > 60 Random Glucose 116 H Calcium 8.9 Phosphorus 3.9 Magnesium 1.9 AST 56 H ALT 37 Alkaline Phosphatase 339 H Total Creatine Kinase 85 79 CK-MB (Mass) 6.43 H Troponin I, Quant 1.0900 H* 0.9650 H* Total Protein 6.2 L Albumin 3.2 L Globulin 3.0 Albumin/Globulin Ratio 1.1 05/15/17 07:17 WBC 7.3 RBC 3.54 L Hgb 10.6 L Hct 31.6 L MCV 89.4 MCH 29.9 MCHC 33.4 RDW 12.7 Plt Count 164 MPV 9.5 Neut % (Auto) 73.9 Lymph % (Auto) 12.6 L Cherry % (Auto) 8.9 Eos % (Auto) 4.1 H Baso % (Auto) 0.5 Neut # 5.4 Lymph # 0.9 L Cherry # 0.6 Eos # 0.3 Baso # 0.0 Sodium Potassium Chloride Carbon Dioxide Anion Gap BUN Creatinine Est GFR ( Amer) Est GFR (Non-Af Amer) Random Glucose Calcium Phosphorus Magnesium AST ALT Alkaline Phosphatase Total Creatine Kinase CK-MB (Mass) Troponin I, Quant Total Protein Albumin Globulin Albumin/Globulin Ratio Assessment & Plan - Assessment and Plan (Free Text) Assessment: 56 year old female with history of Hypertension, Hyperlipidemia, and recently diagnosed Right lower extremity DVT (05/02/17) on Eliquis presenting with shortness of breath and chest pain.Active treatment of confirmed PE with multiple pulmonary nodules on CT angiography and NSTEMI. GI consultation for abdominal pain with note of unintentional weight loss and elevated LFTs. Prior colonoscopy three years ago at [place] endorsed to be normal. Plan: >Ultrasound showed multiple hepatic masses (max 3.8cm), gallbladder sludge, GB wall thickening of 5mm >ordered CT triple phase liver protocol >ordered Hepatitis panel, GGT, AFP, CEA >supportive care: PPI, pain control, antiemetics, IVFs >bowel regimen: Colace, Miralax >cardiology - follow recommendations >pulmonology - follow recommendations >continued treatment of DVT, PE, and NSTEMI, medically stabilization, and optimization, and clearance prior to consideration of endoscopic evaluation >further recommendations after CT liver triple phase protocol <Josue Jean - Last Filed: 05/15/17 09:55> Meds - Medications Medications: Current Medications Acetaminophen (Tylenol 325mg Tab) 650 mg PO Q6 PRN PRN Reason: Pain, Mild (1-3) Aspirin (Ecotrin) 81 mg PO DAILY [facility] Last Admin: 05/14/17 10:08 Dose: 81 mg Docusate Sodium (Colace) 100 mg PO BID [facility] Enoxaparin Sodium (Lovenox) 100 mg SC Q12 [facility] Last Admin: 05/14/17 21:47 Dose: 100 mg Ceftriaxone Sodium 1 gm/ (Sodium Chloride) 100 mls @ 100 mls/hr IVPB DAILY [facility] Last Admin: 05/14/17 10:07 Dose: 100 mls/hr Losartan Potassium (Cozaar) 25 mg PO DAILY [facility] Last Admin: 05/14/17 10:08 Dose: 25 mg Morphine Sulfate (Morphine) 2 mg IV Q6 PRN PRN Reason: Pain, moderate (4-7) Last Admin: 05/15/17 07:40 Dose: 2 mg Ondansetron HCl (Zofran Inj) 4 mg IVP Q6 PRN PRN Reason: Nausea/Vomiting Pantoprazole Sodium (Protonix Ec Tab) 40 mg PO DAILY [facility] Last Admin: 05/14/17 10:08 Dose: 40 mg Polyethylene Glycol (Miralax) 17 gm PO DAILY [facility] Rosuvastatin Calcium (Crestor) 10 mg PO HS [facility] Last Admin: 05/14/17 21:47 Dose: 10 mg Results - Vital Signs Recent Vital Signs: Last Vital Signs Temp 98.6 F 05/14/17 23:55 Pulse 78 05/15/17 08:00 Resp 20 05/14/17 23:55 BP 138/76 05/14/17 23:55 Pulse Ox 96 05/14/17 23:55 - Labs Result Diagrams: 05/15/17 07:17 05/15/17 07:14 Labs: Laboratory Results - last 24 hr 05/14/17 05/14/17 05/15/17 08:11 14:47 07:14 WBC RBC Hgb Hct MCV MCH MCHC RDW Plt Count MPV Neut % (Auto) Lymph % (Auto) Cherry % (Auto) Eos % (Auto) Baso % (Auto) Neut # Lymph # Cherry # Eos # Baso # Sodium 135 Potassium 3.7 Chloride 100 Carbon Dioxide 25 Anion Gap 14 BUN 7 Creatinine 0.6 L Est GFR ( Amer) > 60 Est GFR (Non-Af Amer) > 60 Random Glucose 116 H Calcium 8.9 Phosphorus 3.9 Magnesium 1.9 Total Bilirubin 1.2 AST 56 H ALT 37 Alkaline Phosphatase 339 H Total Creatine Kinase 79 CK-MB (Mass) 6.43 H Troponin I, Quant 1.0900 H* 0.9650 H* Total Protein 6.2 L Albumin 3.2 L Globulin 3.0 Albumin/Globulin Ratio 1.1 05/15/17 07:17 WBC 7.3 RBC 3.54 L Hgb 10.6 L Hct 31.6 L MCV 89.4 MCH 29.9 MCHC 33.4 RDW 12.7 Plt Count 164 MPV 9.5 Neut % (Auto) 73.9 Lymph % (Auto) 12.6 L Cherry % (Auto) 8.9 Eos % (Auto) 4.1 H Baso % (Auto) 0.5 Neut # 5.4 Lymph # 0.9 L Cherry # 0.6 Eos # 0.3 Baso # 0.0 Sodium Potassium Chloride Carbon Dioxide Anion Gap BUN Creatinine Est GFR ( Amer) Est GFR (Non-Af Amer) Random Glucose Calcium Phosphorus Magnesium Total Bilirubin AST ALT Alkaline Phosphatase Total Creatine Kinase CK-MB (Mass) Troponin I, Quant Total Protein Albumin Globulin Albumin/Globulin Ratio Attending/Attestation - Attestation I have personally seen and examined this patient.: Yes I have fully participated in the care of the patient.: Yes I have reviewed all pertinent clinical information: Yes Notes (Text): 05/15/17 09:51 56 year old female with history of HTN, HLD, DVT on eliquis admitted with CP/SOB , foudn to have PE, NSTEMI, we are evalauting for chronic abdominal pain. 1. Abdominal pain 2. Liver lesions 3. Elevated LFTs Plan: -US abdomen reviewed, multiple lesions, worrisome for metastases -GB sludge also noted -recommend further evaluation with triple phase CT scan of the liver -eval for chronic liver disease with viral hepatitis serologies / autoimmune serologies / iron studies -check tumor markers including AFP / CEA -recommend PPI and miralax, may stop colace -on therapeutic anticoagulation for PE
--- NOTE | 2017-05-15 09:49 | CP.PCM.CON ---
History of Present Illness - History of Present Illness History of Present Illness: Cardiology Consult Note Reason for consult: NSTEMI 56 year old female PMHx HTN, HLD, RLE DVT on eliquis (04/2017) presented on 05/14 with chest pain, headache, and SOB for 1 day. Patient was recently diagnosed with a DVT in April 2016. CTA in the ER showed acute pulmonary embolus and patient was started on therapeutic lovenox 100mg q12. Patient also had elevated troponins 0.512 -> 1.0900 -> 0.[address] changes and was admitted for NSTEMI. Patient went for echo today 05/15. This AM she reports feeling better than admission and reports her SOB has resolved and she is satting well on room air. Patient does report diffuse abdominal pain worsened with meals and laying down on her back. She stated that when she went down for her abdominal ultrasound pain was reproduced. She also reports bloating and constipation. She denied any fever, chills, chest pain, palpitations, cough, nausea, vomiting, diarrhea, and bladder complaints. PMHx: HTN, HLD, DVT (04/2017) PSurgHx: denies Meds: as per MAR Allergies: NKDA SHx: smokes 1/3 pack a day for 40 years, denies drug or alcohol use, lives with her daughter in [place] FHx: father had "heart problems", mother of a stoke after having peptic ulcer and was on a vent PMD: Dr. Mcmillan Review of Systems - Constitutional Constitutional: As Per HPI, Weight Loss. absent: Chills, Fever - EENT Eyes: As Per HPI. absent: Blurred Vision Ears: As Per HPI. absent: Dizziness Nose/Mouth/Throat: As Per HPI. absent: Sore Throat - Cardiovascular Cardiovascular: As Per HPI. absent: Chest Pain, Dyspnea, Palpitations - Respiratory Respiratory: As Per HPI. absent: Cough, Dyspnea, Chest Congestion - Gastrointestinal Gastrointestinal: As Per HPI, Abdominal Pain, Constipation. absent: Diarrhea, Nausea, Vomiting - Genitourinary Genitourinary: As Per HPI. absent: Dysuria - Musculoskeletal Musculoskeletal: As Per HPI, Back Pain - Integumentary Integumentary: As Per HPI. absent: Rash - Neurological Neurological: As Per HPI. absent: Dizziness, Headaches - Endocrine Endocrine: As Per HPI. absent: Polydipsia, Polyuria Past Patient History - Past Medical History & Family History Past Medical History?: Yes - Past Social History Smoking Status: Light Smoker < 10 Cigarettes Daily - CARDIAC Hx Hypercholesterolemia: Yes Hx Hypertension: Yes - PULMONARY Hx Respiratory Disorders: No - NEUROLOGICAL Hx Neurological Disorder: No - HEENT Hx HEENT Problems: Yes Other/Comment: GLASSES FOR READING - RENAL Hx Chronic Kidney Disease: No - ENDOCRINE/METABOLIC Hx Endocrine Disorders: No - HEMATOLOGICAL/ONCOLOGICAL Hx Blood Disorders: No - INTEGUMENTARY Hx Dermatological Problems: No - MUSCULOSKELETAL/RHEUMATOLOGICAL Hx Musculoskeletal Disorders: No Hx Falls: No - GASTROINTESTINAL Hx Gastrointestinal Disorders: No - GENITOURINARY/GYNECOLOGICAL Hx Genitourinary Disorders: No - PSYCHIATRIC Hx Substance Use: No - SURGICAL HISTORY Hx Surgeries: No Other/Comment: CYST LEFT BREAST YEARS - ANESTHESIA Hx Anesthesia: No Meds Allergies/Adverse Reactions: Allergies Allergy/AdvReac Type Severity Reaction Status Date / Time No Known Allergies Allergy Verified 05/02/17 15:29 - Medications Medications: Current Medications Acetaminophen (Tylenol 325mg Tab) 650 mg PO Q6 PRN PRN Reason: Pain, Mild (1-3) Aspirin (Ecotrin) 81 mg PO DAILY [facility] Last Admin: 05/14/17 10:08 Dose: 81 mg Docusate Sodium (Colace) 100 mg PO BID PRN PRN Reason: Constipation Last Admin: 05/14/17 10:08 Dose: 100 mg Enoxaparin Sodium (Lovenox) 100 mg SC Q12 [facility] Last Admin: 05/14/17 21:47 Dose: 100 mg Ceftriaxone Sodium 1 gm/ (Sodium Chloride) 100 mls @ 100 mls/hr IVPB DAILY [facility] Last Admin: 05/14/17 10:07 Dose: 100 mls/hr Losartan Potassium (Cozaar) 25 mg PO DAILY [facility] Last Admin: 05/14/17 10:08 Dose: 25 mg Morphine Sulfate (Morphine) 2 mg IV Q6 PRN PRN Reason: Pain, moderate (4-7) Last Admin: 05/15/17 07:40 Dose: 2 mg Ondansetron HCl (Zofran Inj) 4 mg IVP Q6 PRN PRN Reason: Nausea/Vomiting Pantoprazole Sodium (Protonix Ec Tab) 40 mg PO DAILY [facility] Last Admin: 05/14/17 10:08 Dose: 40 mg Rosuvastatin Calcium (Crestor) 10 mg PO HS [facility] Last Admin: 05/14/17 21:47 Dose: 10 mg Physical Exam - Constitutional Appears: Non-toxic, No Acute Distress - Head Exam Head Exam: ATRAUMATIC, NORMAL INSPECTION, NORMOCEPHALIC - Eye Exam Eye Exam: EOMI, Normal appearance, PERRL. absent: Conjunctival injection, Scleral icterus Pupil Exam: NORMAL ACCOMODATION - ENT Exam ENT Exam: Mucous Membranes Moist - Neck Exam Neck exam: Positive for: Full Rom, Normal Inspection - Respiratory Exam Respiratory Exam: Clear to Auscultation Bilateral, NORMAL BREATHING PATTERN. absent: Accessory Muscle Use, Rales, Rhonchi, Wheezes - Cardiovascular Exam Cardiovascular Exam: REGULAR RHYTHM, RRR, +S1, +S2 - GI/Abdominal Exam GI & Abdominal Exam: Distended, Normal Bowel Sounds, Organomegaly, Soft, Tenderness (diffuse). absent: Firm, Rigid - Extremities Exam Extremities exam: Positive for: pedal edema - Back Exam Back exam: NORMAL INSPECTION. absent: rash noted - Neurological Exam Neurological exam: Alert, Oriented x3 - Psychiatric Exam Psychiatric exam: Normal Affect, Normal Mood - Skin Skin Exam: Dry, Intact, Normal Color, Warm Results - Vital Signs Recent Vital Signs: Last Vital Signs Temp 98.6 F 05/14/17 23:55 Pulse 78 05/15/17 08:00 Resp 20 05/14/17 23:55 BP 138/76 05/14/17 23:55 Pulse Ox 96 05/14/17 23:55 - Labs Result Diagrams: 05/15/17 07:17 05/15/17 07:14 Labs: Laboratory Results - last 24 hr 05/14/17 05/14/17 05/15/17 08:11 14:47 07:14 WBC RBC Hgb Hct MCV MCH MCHC RDW Plt Count MPV Neut % (Auto) Lymph % (Auto) [place] % (Auto) Eos % (Auto) Baso % (Auto) Neut # Lymph # [place] # Eos # Baso # Sodium 135 Potassium 3.7 Chloride 100 Carbon Dioxide 25 Anion Gap 14 BUN 7 Creatinine 0.6 L Est GFR ( Amer) > 60 Est GFR (Non-Af Amer) > 60 Random Glucose 116 H Calcium 8.9 Phosphorus 3.9 Magnesium 1.9 AST 56 H ALT 37 Alkaline Phosphatase 339 H Total Creatine Kinase 85 79 CK-MB (Mass) 6.43 H Troponin I, Quant 1.0900 H* 0.9650 H* Total Protein 6.2 L Albumin 3.2 L Globulin 3.0 Albumin/Globulin Ratio 1.1 05/15/17 07:17 WBC 7.3 RBC 3.54 L Hgb 10.6 L Hct 31.6 L MCV 89.4 MCH 29.9 MCHC 33.4 RDW 12.7 Plt Count 164 MPV 9.5 Neut % (Auto) 73.9 Lymph % (Auto) 12.6 L [place] % (Auto) 8.9 Eos % (Auto) 4.1 H Baso % (Auto) 0.5 Neut # 5.4 Lymph # 0.9 L [place] # 0.6 Eos # 0.3 Baso # 0.0 Sodium Potassium Chloride Carbon Dioxide Anion Gap BUN Creatinine Est GFR ( Amer) Est GFR (Non-Af Amer) Random Glucose Calcium Phosphorus Magnesium AST ALT Alkaline Phosphatase Total Creatine Kinase CK-MB (Mass) Troponin I, Quant Total Protein Albumin Globulin Albumin/Globulin Ratio Assessment & Plan - Assessment and Plan (Free Text) Assessment: 56 year old female PMHx HTN, HLD, RLE DVT on eliquis (04/2017) presented on 05/14 with chest pain, headache, and SOB for 1 day Plan: NSTEMI -elevated troponins 0.512 -> 1.0900 -> 0.965 likely noncardiac elevation of enzymes -no acute ST elevations on EKG -f/u Echo -patient is on therapeutic lovenox for pulmonary embolism found on CTA on admission -ASA 81mg po daily -Lovenox 100mg sc q12 -Cozaar 25mg po daily -Crestor 10mg po hs -Continue current management
[2017-05-15] MEDS: Pantoprazole 40 mg EC Tab PO SCH (10:30)
[2017-05-15] MEDS: Enoxaparin 100 mg Syringe SC SCH ×2 (10:30→21:56)
[2017-05-15] MEDS: POLYETHYLENE GLYCOL 3350 17 GM/Dose PACKET PO SCH (10:31)
[2017-05-15 13:01] LABS: IRON 45 ug/dL (37-170)
[2017-05-15 13:02] LABS: IMMUNOGLOBULIN G 840.5 mg/dL (700.0-1600.0)
[2017-05-15 13:03] LABS: IMMUNOGLOBULIN M 50.2 mg/dL (40.0-230.0)
[2017-05-15 13:04] LABS: IMMUNOGLOBULIN A 195.5 mg/dL (70.0-400.0)
[2017-05-15 13:12] LABS: % IRON SATURATION 19 (20-55); TOTAL IRON BINDING CAPACITY 236 ug/dL (250-450)
[2017-05-15 13:19] LABS: HEPATITIS B SURFACE AG NEGATIVE (NEGATIVE)
[2017-05-15 13:24] LABS: HEPATITIS A IGM NEGATIVE (NEGATIVE); HEPATITIS B CORE AB NEGATIVE (NEGATIVE)
[2017-05-15 13:36] LABS: HEPATITIS C ANTIBODY NEGATIVE (NEGATIVE)
[2017-05-15] MEDS ORDERED: Iodixanol 320 MG/ML 100 ML BOTTLE IV ONE (14:26)
--- NOTE | 2017-05-15 16:03 | CT ---
Liver protocol triple phase CT Indication: Multiple liver masses Technique: Contiguous axial images of the abdomen without & with IV contrast utilizing liver protocol. Coronal and Sagittal reformats generated and reviewed. This CT exam was performed using 1 or more of the falling dose reduction techniques: Automated exposure control, adjustment of the MAA and/or kV according to patient size, and/or use of iterative reconstruction technique. Contrast: Oral contrast was not administered. 100 mL Visipaque IV. Radiation dose: Total exam DLP = 2231.11 MGy-cm. Comparison: Abdominal ultrasound performed 05/15/17, CT angio chest PE protocol performed 05/14/17 Findings: Numerous bilateral lower lobe pulmonary nodules best demonstrated on CTA of the chest performed 05/14/17. There is no visible consolidation, pleural effusion, or pneumothorax. Innumerable low-density hepatic lesions worrisome for metastatic disease. Mildly nodular hepatic contour. Hepatomegaly. 17 mm probable splenule. Borderline splenomegaly. Mild gallbladder wall thickening or pericholecystic edema. No visible calcified gallstones. The adrenal glands and pancreas appear grossly unremarkable. The kidneys enhance symmetrically. 7 mm right lower pole renal hypodensity, too small to characterize. No obstructing calculus or hydronephrosis identified. Sub cm gastrohepatic lymph nodes, nonspecific. 10 mm probable lymph node, gastrosplenic region (series 2, image 44). Retroperitoneal lymph nodes measuring up to 14 mm in short axis. The stomach is nondistended. Lack of oral contrast limits evaluation for bowel pathology. The included upper abdominal bowel loops appear within normal limits of caliber without evidence of intestinal obstruction. Diverticulosis without CT evidence of acute diverticulitis. The presumed appendiceal tip appears within normal limits of caliber. There is no definite free air. Punctate subcutaneous air within the right soft tissues of the lower abdomen ; correlate for recent injection. Mild degenerative changes of the spine. Partially imaged bilateral spondylolisthesis involving the lower lumbar spine, presumably L5. Impression: Numerous bilateral lower lobe pulmonary nodules best demonstrated on CTA of the chest performed 05/14/17. Innumerable low-density hepatic lesions worrisome for metastatic disease. Mildly nodular hepatic contour. Hepatomegaly. Borderline splenomegaly. Mild gallbladder wall thickening or pericholecystic edema. No visible calcified gallstones. 7 mm right lower pole renal hypodensity, too small to characterize. Sub cm gastrohepatic lymph nodes, nonspecific. 10 mm probable lymph node, gastrosplenic region. Retroperitoneal lymph nodes measuring up to 14 mm in short axis. Included upper abdominal bowel loops demonstrate diverticulosis without CT evidence of acute diverticulitis. Additional findings as above.
--- NOTE | 2017-05-15 17:33 | CP.PCM.PN ---
Subjective - Date & Time of Evaluation Date of Evaluation: 05/15/17 Time of Evaluation: 14:00 - Subjective Subjective: patient seen and examined. Denies chest pain/shortness of breath but complaining of epigastric discomfort Denies fever chills Objective - Vital Signs/Intake and Output Vital Signs (last 24 hours): Temp Pulse Resp BP Pulse Ox 98.4 F 76 18 123/83 97 05/15/17 16:00 05/15/17 16:00 05/15/17 16:00 05/15/17 16:00 05/15/17 16:00 - Medications Medications: Current Medications Acetaminophen (Tylenol 325mg Tab) 650 mg PO Q6 PRN PRN Reason: Pain, Mild (1-3) Aspirin (Ecotrin) 81 mg PO DAILY [facility] Last Admin: 05/15/17 10:30 Dose: 81 mg Enoxaparin Sodium (Lovenox) 100 mg SC Q12 [facility] Last Admin: 05/15/17 10:30 Dose: 100 mg Ceftriaxone Sodium 1 gm/ (Sodium Chloride) 100 mls @ 100 mls/hr IVPB DAILY [facility] Last Admin: 05/15/17 10:30 Dose: 100 mls/hr Losartan Potassium (Cozaar) 25 mg PO DAILY [facility] Last Admin: 05/15/17 10:30 Dose: 25 mg Morphine Sulfate (Morphine) 2 mg IV Q6 PRN PRN Reason: Pain, moderate (4-7) Last Admin: 05/15/17 13:38 Dose: 2 mg Ondansetron HCl (Zofran Inj) 4 mg IVP Q6 PRN PRN Reason: Nausea/Vomiting Pantoprazole Sodium (Protonix Ec Tab) 40 mg PO DAILY [facility] Last Admin: 05/15/17 10:30 Dose: 40 mg Polyethylene Glycol (Miralax) 17 gm PO DAILY [facility] Last Admin: 05/15/17 10:31 Dose: 17 gm Rosuvastatin Calcium (Crestor) 10 mg PO HS [facility] Last Admin: 05/14/17 21:47 Dose: 10 mg - Labs Labs: 05/15/17 07:17 05/15/17 07:14 PT 20.6 SECONDS (9.7-12.2) H 05/13/17 22:31 INR 1.8 05/13/17 22:31 APTT 29 SECONDS (21-34) 05/13/17 22:31 - Head Exam Head Exam: ATRAUMATIC, NORMOCEPHALIC - Eye Exam Eye Exam: EOMI - ENT Exam ENT Exam: Mucous Membranes Moist - Neck Exam Neck Exam: Normal Inspection - Respiratory Exam Respiratory Exam: Decreased Breath Sounds - Cardiovascular Exam Cardiovascular Exam: REGULAR RHYTHM - GI/Abdominal Exam GI & Abdominal Exam: Soft, Normal Bowel Sounds Assessment and Plan (1) Pulmonary emboli Assessment & Plan: continue Lovenox Awaiting for echocardiogram and repeat venous Doppler of the legs GI workup for epigastric pain Status: Acute (2) Lung nodules Status: Acute (3) NSTEMI (non-ST elevated myocardial infarction) Status: Acute (4) Deep venous thrombosis of lower extremity Status: Resolved
--- NOTE | 2017-05-15 23:20 | CARD ---
APPROVED REPORT EXAM: Two-dimensional and M-mode echocardiogram with Doppler and color Doppler. Other Information Quality : GoodRhythm : NSR INDICATION Chest Pain Non STEMI RISK FACTORS Hypertension Hyperlipidemia M-Mode DIMENSIONS RVDd3.01 (2.1-3.2cm)Left Atrium (MM)3.59 (2.5-4.0cm) IVSd1.02 (0.7-1.1cm)Aortic Root2.85 (2.2-3.7cm) LVDd5.27 (4.0-5.6cm)Aortic Cusp Exc.1.99 (1.5-2.0cm) PWd1.02 (0.7-1.1cm)FS (%) 39 % LVDs3.20 (2.0-3.8cm)LVEF (%)69 (>50%) Mitral Valve MV E Llayejen56.6cm/sMV A Ijdxmdbj60.0cm/sE/A ratio1.0 TDI E/Lateral E'0.0E/Medial E'0.0 Tricuspid Valve TR Peak [id number]/sTR Peak [id number] LEFT VENTRICLE The left ventricle is normal size. There is normal left ventricular wall thickness. Left ventricle systolic function is normal with Ejection Fraction of 65-70%. There is normal LV segmental wall motion. The left ventricular diastolic function is normal. No left ventricle thrombus noted on this study. RIGHT VENTRICLE The right ventricle is normal size. The right ventricular systolic function is normal. ATRIA The left atrium size is normal. The right atrium size is normal. AORTIC VALVE The aortic valve is thickened. The aortic valve is trileaflet. No aortic regurgitation is present. There is no aortic valvular stenosis. There is no aortic valvular vegetation. MITRAL VALVE Mitral annular calcification is mild. There is no evidence of mitral valve prolapse. There is no mitral valve stenosis. Mitral regurgitation is mild. TRICUSPID VALVE The tricuspid valve is normal in structure. There is mild tricuspid regurgitation. Right ventricular systolic pressure is estimated at 30-40 mmHg. There is no pulmonary hypertension. There is no tricuspid valve prolapse or vegetation. There is no tricuspid valve stenosis. PULMONIC VALVE The pulmonic valve is not well visualized. There is no pulmonic valvular regurgitation. GREAT VESSELS The aortic root is normal in size. The IVC is normal in size and collapses >50% with inspiration. PERICARDIAL EFFUSION There is no pericardial effusion. There is no pleural effusion. <Conclusion> The left ventricle is normal size. Left ventricle systolic function is normal with Ejection Fraction of 65-70%. The left ventricular diastolic function is normal. The right ventricle is normal size. The right ventricular systolic function is normal. The left atrium size is normal. The right atrium size is normal. Mitral regurgitation is mild. There is mild tricuspid regurgitation.
--- NOTE | 2017-05-16 04:23 | CP.PCM.PN ---
Subjective - Date & Time of Evaluation Date of Evaluation: 05/15/17 Time of Evaluation: 11:45 - Subjective Subjective: Feeling better Objective - Vital Signs/Intake and Output Vital Signs (last 24 hours): Temp Pulse Resp BP Pulse Ox 98.1 F 81 20 120/72 95 05/15/17 23:45 05/16/17 04:06 05/15/17 23:45 05/15/17 23:45 05/15/17 23:45 - Medications Medications: Current Medications Acetaminophen (Tylenol 325mg Tab) 650 mg PO Q6 PRN PRN Reason: Pain, Mild (1-3) Aspirin (Ecotrin) 81 mg PO DAILY [facility] Last Admin: 05/15/17 10:30 Dose: 81 mg Enoxaparin Sodium (Lovenox) 100 mg SC Q12 [facility] Last Admin: 05/15/17 21:56 Dose: 100 mg Ceftriaxone Sodium 1 gm/ (Sodium Chloride) 100 mls @ 100 mls/hr IVPB DAILY [facility] Last Admin: 05/15/17 10:30 Dose: 100 mls/hr Losartan Potassium (Cozaar) 25 mg PO DAILY [facility] Last Admin: 05/15/17 10:30 Dose: 25 mg Morphine Sulfate (Morphine) 2 mg IV Q6 PRN PRN Reason: Pain, moderate (4-7) Last Admin: 05/15/17 20:07 Dose: 2 mg Ondansetron HCl (Zofran Inj) 4 mg IVP Q6 PRN PRN Reason: Nausea/Vomiting Pantoprazole Sodium (Protonix Ec Tab) 40 mg PO DAILY [facility] Last Admin: 05/15/17 10:30 Dose: 40 mg Polyethylene Glycol (Miralax) 17 gm PO DAILY [facility] Last Admin: 05/15/17 10:31 Dose: 17 gm Rosuvastatin Calcium (Crestor) 10 mg PO HS [facility] Last Admin: 05/15/17 21:56 Dose: 10 mg - Labs Labs: 05/15/17 07:17 05/15/17 07:14 PT 20.6 SECONDS (9.7-12.2) H 05/13/17 22:31 INR 1.8 05/13/17 22:31 APTT 29 SECONDS (21-34) 05/13/17 22:31 - Head Exam Head Exam: ATRAUMATIC - Eye Exam Eye Exam: Normal appearance - ENT Exam ENT Exam: Mucous Membranes Dry - Respiratory Exam Respiratory Exam: NORMAL BREATHING PATTERN - Cardiovascular Exam Cardiovascular Exam: +S1, +S2 - GI/Abdominal Exam GI & Abdominal Exam: Normal Bowel Sounds - Extremities Exam Extremities Exam: Pedal Edema - Neurological Exam Neurological Exam: Oriented x3 - Psychiatric Exam Psychiatric exam: Normal Affect, Normal Mood - Skin Skin Exam: Warm Assessment and Plan (1) Pulmonary emboli Assessment & Plan: with DVT; Eliquis failure on lovenox ?underlying malignancy Status: Acute (2) Lesion of lung Assessment & Plan: ?malignancy Status: Acute (3) Liver lesion Assessment & Plan: recommend IR biopsy of most accessible lesion Status: Acute (4) Anemia Assessment & Plan: elevated ferritin consistent with chronic disease Status: Acute (5) Coagulopathy Assessment & Plan: anticoagulation Status: Acute (6) Tobacco abuse Assessment & Plan: smoking cessation discussed at length Status: Acute
[2017-05-16 07:12] LABS: BASO % 0.6 % (0.0-2.0); EOS # 0.3 K/uL (0.0-0.7); EOS % 4.1 % (0.0-4.0); HEMOGLOBIN 10.4 g/dL (11.0-16.0); LYMPH % 14.2 % (20.0-40.0); MEAN CELL VOLUME 88.9 fL (81.0-99.0); MEAN CORPUSCULAR HEMOGLOBIN 29.8 pg (27.0-31.0); MEAN CORPUSCULAR HGB CONC 33.5 g/dL (33.0-37.0); MEAN PLATELET VOLUME 9.3 fL (7.2-11.7); MONO # 0.7 K/uL (0.0-0.8); MONO % 9.7 % (0.0-10.0); NEUT # 4.8 K/uL (1.8-7.0); NEUT % 71.4 % (50.0-75.0); NRBC % 0.1 % (0.0-2.0); RBC 3.48 Mil/uL (3.80-5.20); RED CELL DISTRIBUTION WIDTH 13.1 % (11.5-14.5); WHITE BLOOD COUNT 6.7 K/uL (4.8-10.8)
--- NOTE | 2017-05-16 07:21 | CP.PCM.PN ---
Subjective - Date & Time of Evaluation Date of Evaluation: 05/16/17 Time of Evaluation: 09:00 - Subjective Subjective: Patient seen and examined at bedside. She continued to complain of abdominal pain and bloating and inability to eat secondary to pain despite being hungry. Pain continues to be exacerbated when patient lies completely supine. Patient was tearful on encounter. Nursing reported no acute events overnight. Patient denied fever, chills, chest pain, palpitations, cough, nausea, vomiting, bowel/ bladder complaints. Objective - Vital Signs/Intake and Output Vital Signs (last 24 hours): Temp Pulse Resp BP Pulse Ox 98.0 F 79 20 126/77 95 05/16/17 05:45 05/16/17 05:45 05/16/17 05:45 05/16/17 05:45 05/16/17 05:45 Intake and Output: 05/16/17 05/16/17 06:59 18:59 Intake Total 120 Balance 120 - Medications Medications: Current Medications Acetaminophen (Tylenol 325mg Tab) 650 mg PO Q6 PRN PRN Reason: Pain, Mild (1-3) Aspirin (Ecotrin) 81 mg PO DAILY [facility] Last Admin: 05/15/17 10:30 Dose: 81 mg Enoxaparin Sodium (Lovenox) 100 mg SC Q12 [facility] Last Admin: 05/15/17 21:56 Dose: 100 mg Ceftriaxone Sodium 1 gm/ (Sodium Chloride) 100 mls @ 100 mls/hr IVPB DAILY [facility] Last Admin: 05/15/17 10:30 Dose: 100 mls/hr Losartan Potassium (Cozaar) 25 mg PO DAILY [facility] Last Admin: 05/15/17 10:30 Dose: 25 mg Morphine Sulfate (Morphine) 2 mg IV Q6 PRN PRN Reason: Pain, moderate (4-7) Last Admin: 05/15/17 20:07 Dose: 2 mg Ondansetron HCl (Zofran Inj) 4 mg IVP Q6 PRN PRN Reason: Nausea/Vomiting Pantoprazole Sodium (Protonix Ec Tab) 40 mg PO DAILY [facility] Last Admin: 05/15/17 10:30 Dose: 40 mg Polyethylene Glycol (Miralax) 17 gm PO DAILY [facility] Last Admin: 05/15/17 10:31 Dose: 17 gm Rosuvastatin Calcium (Crestor) 10 mg PO HS [facility] Last Admin: 05/15/17 21:56 Dose: 10 mg - Labs Labs: 05/16/17 07:02 05/15/17 07:14 PT 20.6 SECONDS (9.7-12.2) H 05/13/17 22:31 INR 1.8 05/13/17 22:31 APTT 29 SECONDS (21-34) 05/13/17 22:31 - Constitutional Appears: Non-toxic, No Acute Distress - Head Exam Head Exam: ATRAUMATIC, NORMAL INSPECTION, NORMOCEPHALIC - Eye Exam Eye Exam: EOMI, Normal appearance. absent: Conjunctival injection, Scleral icterus Pupil Exam: NORMAL ACCOMODATION - ENT Exam ENT Exam: Mucous Membranes Moist - Neck Exam Neck Exam: Full ROM, Normal Inspection - Respiratory Exam Respiratory Exam: Clear to Ausculation Bilateral, NORMAL BREATHING PATTERN. absent: Accessory Muscle Use, Rales, Rhonchi, Wheezes - Cardiovascular Exam Cardiovascular Exam: REGULAR RHYTHM, RRR, +S1, +S2. absent: Murmur - GI/Abdominal Exam GI & Abdominal Exam: Distended, Soft, Tenderness (diffuse), Organomegaly - Extremities Exam Extremities Exam: Normal Inspection. absent: Pedal Edema - Back Exam Back Exam: NORMAL INSPECTION - Neurological Exam Neurological Exam: Alert, Awake, Oriented x3 - Psychiatric Exam Psychiatric exam: Anxious Additional comments: tearful - Skin Skin Exam: Dry, Intact, Normal Color, Warm Assessment and Plan - Assessment and Plan (Free Text) Assessment: 56 year old female PMHx HTN, HLD, RLE DVT on eliquis (04/2017) presented on 05/14 with chest pain, headache, and SOB for 1 day Plan: -elevated troponins 0.512 on admission -> 1.0900 -> 0.965 likely noncardiac elevation of enzymes -no acute ST elevations on EKG -Echo: normal size; EF 65-70%; LV diastolic function is normal; RV is normal size; RV systolic function is normal; LA size is normal; RA size is normal; MR is mild; TR is mild -patient is on therapeutic lovenox for pulmonary embolism found on CTA on admission -ASA 81mg po daily -Lovenox 100mg sc q12 -Cozaar 25mg po daily -Crestor 10mg po hs -Patient for exercise stress test at 8am tomorrow 05/17
[2017-05-16 07:32] LABS: ALBUMIN 3.2 g/dL (3.5-5.0)
[2017-05-16 07:35] LABS: AST/SGOT 53 U/L (14-36); GFR AFRICAN-AMERICAN > 60; GFR NON-AFRICAN AMERICAN > 60
[2017-05-16 07:36] LABS: ALT/SGPT 36 U/L (9-52); BLOOD UREA NITROGEN 6 mg/dL (7-17); CALCIUM 8.9 mg/dl (8.6-10.4)
--- NOTE | 2017-05-16 07:41 | CP.PCM.PN ---
<Shaniqua Thompson - Last Filed: 05/16/17 11:23> Subjective - Date & Time of Evaluation Date of Evaluation: 05/16/17 Time of Evaluation: 07:39 - Subjective Subjective: Gastroenterology Fellow/PGY5 Progress Note Patient continues to have severe epigastric pain with associated bloating. Minimal solid food intake due to exacerbation of symptoms. No bowel movement yesterday. A 12-point review of systems negative except for as above. Objective - Vital Signs/Intake and Output Vital Signs (last 24 hours): Temp Pulse Resp BP Pulse Ox 98.0 F 79 20 126/77 95 05/16/17 05:45 05/16/17 05:45 05/16/17 05:45 05/16/17 05:45 05/16/17 05:45 Intake and Output: 05/16/17 05/16/17 06:59 18:59 Intake Total 120 Balance 120 - Medications Medications: Current Medications Acetaminophen (Tylenol 325mg Tab) 650 mg PO Q6 PRN PRN Reason: Pain, Mild (1-3) Aspirin (Ecotrin) 81 mg PO DAILY [facility] Last Admin: 05/15/17 10:30 Dose: 81 mg Enoxaparin Sodium (Lovenox) 100 mg SC Q12 [facility] Last Admin: 05/15/17 21:56 Dose: 100 mg Ceftriaxone Sodium 1 gm/ (Sodium Chloride) 100 mls @ 100 mls/hr IVPB DAILY [facility] Last Admin: 05/15/17 10:30 Dose: 100 mls/hr Losartan Potassium (Cozaar) 25 mg PO DAILY [facility] Last Admin: 05/15/17 10:30 Dose: 25 mg Morphine Sulfate (Morphine) 2 mg IV Q6 PRN PRN Reason: Pain, moderate (4-7) Last Admin: 05/15/17 20:07 Dose: 2 mg Ondansetron HCl (Zofran Inj) 4 mg IVP Q6 PRN PRN Reason: Nausea/Vomiting Pantoprazole Sodium (Protonix Ec Tab) 40 mg PO DAILY [facility] Last Admin: 05/15/17 10:30 Dose: 40 mg Polyethylene Glycol (Miralax) 17 gm PO DAILY [facility] Last Admin: 05/15/17 10:31 Dose: 17 gm Rosuvastatin Calcium (Crestor) 10 mg PO HS [facility] Last Admin: 05/15/17 21:56 Dose: 10 mg - Labs Labs: 05/16/17 07:02 05/16/17 07:02 PT 20.6 SECONDS (9.7-12.2) H 05/13/17 22:31 INR 1.8 05/13/17 22:31 APTT 29 SECONDS (21-34) 05/13/17 22:31 - Constitutional Appears: Non-toxic, No Acute Distress - Head Exam Head Exam: ATRAUMATIC, NORMOCEPHALIC - Eye Exam Eye Exam: EOMI, PERRL Pupil Exam: PERRL. absent: Miosis, Mydriatic - ENT Exam ENT Exam: Mucous Membranes Moist, Normal Oropharynx - Neck Exam Neck Exam: Full ROM, Normal Inspection - Cardiovascular Exam Cardiovascular Exam: RRR, +S1, +S2. absent: Gallop, Rubs - GI/Abdominal Exam GI & Abdominal Exam: Soft, Tenderness, Normal Bowel Sounds, Organomegaly. absent: Distended, Firm, Guarding, Rigid, Rebound Additional comments: hepatosplenomegaly, epigastric tenderness - Extremities Exam Extremities Exam: Full ROM. absent: Pedal Edema - Neurological Exam Neurological Exam: Alert, Awake - Psychiatric Exam Psychiatric exam: Normal Affect, Normal Mood - Skin Skin Exam: Dry, Intact, Normal Color, Warm Assessment and Plan - Assessment and Plan (Free Text) Assessment: 56 year old female with history of Hypertension, Hyperlipidemia, and recently diagnosed Right lower extremity DVT (05/02/17) on [facility] presenting with shortness of breath, chest pain, and abdominal pain. Active treatment of PE, NSTEMI, and elevated transaminases with multiple hepatic lesions (max 3.8cm) on Ultrasound, and pulmonary nodules on CT angiography. Prior colonoscopy three years ago at [facility] endorsed to be normal. Plan: >05/13 MELD 18 , today pending >CT triple phase liver protocol- cirrhosis, multiple hepatic lesions concerning for metastatic disease, lymphadenopathy >Hepatitis panel negative >admits to heavy alcohol use (multiple shots and ~3-24oz beers daily) for 3-4 years, 4 years ago >pending autoimmune workup >AFP 3 , CEA 199 >Hem/Onc following- appreciate recommendations >on full dose Lovenox for PE and DVT >supportive care: PPI, pain control >discussed with primary team, plan to >will discuss possible IR Biopsy with Radiologist today >if amenable, will hold Lovenox tonight and in AM for IR guided liver biopsy <J Carlos Cobos - Last Filed: 05/16/17 12:02> Objective - Vital Signs/Intake and Output Vital Signs (last 24 hours): Temp Pulse Resp BP Pulse Ox 98 F 86 18 114/76 96 05/16/17 07:10 05/16/17 07:10 05/16/17 07:10 05/16/17 07:10 05/16/17 07:10 Intake and Output: 05/16/17 05/16/17 06:59 18:59 Intake Total 120 Balance 120 - Medications Medications: Current Medications Acetaminophen (Tylenol 325mg Tab) 650 mg PO Q6 PRN PRN Reason: Pain, Mild (1-3) Aspirin (Ecotrin) 81 mg PO DAILY [facility] Last Admin: 05/16/17 10:15 Dose: 81 mg Enoxaparin Sodium (Lovenox) 100 mg SC Q12 [facility] Last Admin: 05/16/17 10:16 Dose: 100 mg Ceftriaxone Sodium 1 gm/ (Sodium Chloride) 100 mls @ 100 mls/hr IVPB DAILY [facility] Last Admin: 05/16/17 10:15 Dose: 100 mls/hr Losartan Potassium (Cozaar) 25 mg PO DAILY [facility] Last Admin: 05/16/17 10:15 Dose: 25 mg Morphine Sulfate (Morphine) 2 mg IV Q6 PRN PRN Reason: Pain, moderate (4-7) Last Admin: 05/16/17 08:01 Dose: 2 mg Ondansetron HCl (Zofran Inj) 4 mg IVP Q6 PRN PRN Reason: Nausea/Vomiting Pantoprazole Sodium (Protonix Ec Tab) 40 mg PO DAILY [facility] Last Admin: 05/16/17 10:15 Dose: 40 mg Polyethylene Glycol (Miralax) 17 gm PO DAILY [facility] Last Admin: 05/16/17 10:18 Dose: 17 gm Rosuvastatin Calcium (Crestor) 10 mg PO HS [facility] Last Admin: 05/15/17 21:56 Dose: 10 mg - Labs Labs: 05/16/17 07:02 05/16/17 07:02 PT 20.6 SECONDS (9.7-12.2) H 05/13/17 22:31 INR 1.8 05/13/17 22:31 APTT 29 SECONDS (21-34) 05/13/17 22:31 Attending/Attestation - Attestation I have personally seen and examined this patient.: Yes I have fully participated in the care of the patient.: Yes I have reviewed all pertinent clinical information, including history, physical exam and plan: Yes Notes (Text): 05/16/17 11:56 I have seen and examined patient with GI fellow. She is seen resting in bed, complains of ongoing epigastric and dionisio-umbilical abdominal pain, worse after meal consumption. She denies nausea, vomiting, diarrhea, fever/chills. Tolerating PO diet with moderate difficulty. Review of vitals from today are normal. HTN Hyperlipidemia DVT, acute PE currently on lovenox Elevated troponin likely secondary to PE Abdominal pain - hepatomegaly with CT imaging showing multiple low density hepatic lesions suggestive of metastatic disease. CT imaging reviewed by me, cirrhotic appearing morphology of liver along with scattered subcentimeter abdominal lymphadenopathy, pulmonary nodules - Diet as tolerated - Continue to monitor LFTs - Awaiting autoimmune panel results - Pain control - Ideally, would favor endoscopic evaluation with EGD/colonoscopy to assist with diagnosis however patient with recent acute PE which precludes examination with anesthesia. Suggest IR guided biopsy of liver lesion. - Follow up oncology recommendations - Case discussed with Dr. Dozier
[2017-05-16] MEDS: Morphine 4 MG/ML VIAL IV PRN (08:01)
[2017-05-16] MEDS: Pantoprazole 40 mg EC Tab PO SCH (10:15)
[2017-05-16] MEDS: Enoxaparin 100 mg Syringe SC SCH (10:16)
[2017-05-16] MEDS: POLYETHYLENE GLYCOL 3350 17 GM/Dose PACKET PO SCH (10:18)
--- NOTE | 2017-05-16 12:01 | CP.PCM.PN ---
Subjective - Date & Time of Evaluation Date of Evaluation: 05/16/17 Time of Evaluation: 09:00 - Subjective Subjective: the patient seen and examined. Denies shortness of breath and chest pain Seen by gastroenterology with multiple hepatic lesions Still complaining of epigastric discomfort after eating Objective - Vital Signs/Intake and Output Vital Signs (last 24 hours): Temp Pulse Resp BP Pulse Ox 98 F 86 18 114/76 96 05/16/17 07:10 05/16/17 07:10 05/16/17 07:10 05/16/17 07:10 05/16/17 07:10 Intake and Output: 05/16/17 05/16/17 06:59 18:59 Intake Total 120 Balance 120 - Medications Medications: Current Medications Acetaminophen (Tylenol 325mg Tab) 650 mg PO Q6 PRN PRN Reason: Pain, Mild (1-3) Aspirin (Ecotrin) 81 mg PO DAILY [facility] Last Admin: 05/16/17 10:15 Dose: 81 mg Enoxaparin Sodium (Lovenox) 100 mg SC Q12 [facility] Last Admin: 05/16/17 10:16 Dose: 100 mg Ceftriaxone Sodium 1 gm/ (Sodium Chloride) 100 mls @ 100 mls/hr IVPB DAILY [facility] Last Admin: 05/16/17 10:15 Dose: 100 mls/hr Losartan Potassium (Cozaar) 25 mg PO DAILY [facility] Last Admin: 05/16/17 10:15 Dose: 25 mg Morphine Sulfate (Morphine) 2 mg IV Q6 PRN PRN Reason: Pain, moderate (4-7) Last Admin: 05/16/17 08:01 Dose: 2 mg Ondansetron HCl (Zofran Inj) 4 mg IVP Q6 PRN PRN Reason: Nausea/Vomiting Pantoprazole Sodium (Protonix Ec Tab) 40 mg PO DAILY [facility] Last Admin: 05/16/17 10:15 Dose: 40 mg Polyethylene Glycol (Miralax) 17 gm PO DAILY [facility] Last Admin: 05/16/17 10:18 Dose: 17 gm Rosuvastatin Calcium (Crestor) 10 mg PO HS [facility] Last Admin: 05/15/17 21:56 Dose: 10 mg - Labs Labs: 05/16/17 07:02 05/16/17 07:02 PT 20.6 SECONDS (9.7-12.2) H 07/03/17 22:31 INR 1.8 05/13/17 22:31 APTT 29 SECONDS (21-34) 05/13/17 22:31 - Constitutional Appears: No Acute Distress - Head Exam Head Exam: ATRAUMATIC, NORMOCEPHALIC - Eye Exam Eye Exam: Normal appearance - ENT Exam ENT Exam: Mucous Membranes Moist - Neck Exam Neck Exam: Normal Inspection - Respiratory Exam Respiratory Exam: Clear to Ausculation Bilateral - Cardiovascular Exam Cardiovascular Exam: REGULAR RHYTHM - GI/Abdominal Exam GI & Abdominal Exam: Soft Assessment and Plan (1) Pulmonary emboli Assessment & Plan: continue Lovenox Consider biopsy of herpetic lesion Status: Acute (2) Lung nodules Status: Acute (3) NSTEMI (non-ST elevated myocardial infarction) Status: Acute (4) Deep venous thrombosis of lower extremity Status: Resolved
[2017-05-16 12:05] LABS: INR 1.4; PROTHROMBIN TIME 15.8 SECONDS (9.7-12.2)
--- NOTE | 2017-05-16 20:59 | CP.PCM.PN ---
<Lynda Bansal - Last Filed: 05/16/17 20:54> Subjective - Date & Time of Evaluation Date of Evaluation: 05/16/17 Time of Evaluation: 20:54 - Subjective Subjective: Medicine Progress Note- Dr. Dozier Service Patient was seen and examined at bedside in no acute distress. She reports still having severe abdominal pain which hurts in all positions, but worse when laying down or after eating. She reports being hungry but unable to eat because it exacerbates her pain. Patient denies having chest pain, palpitations, shortness of breath, dizziness, nausea, vomiting, and diarrhea. Objective - Vital Signs/Intake and Output Vital Signs (last 24 hours): Temp Pulse Resp BP Pulse Ox 98.2 F 72 20 116/67 98 05/16/17 15:56 05/16/17 15:56 05/16/17 15:56 05/16/17 15:56 05/16/17 15:56 Intake and Output: 05/16/17 05/17/17 18:59 06:59 Intake Total 360 Balance 360 - Medications Medications: Current Medications Acetaminophen (Tylenol 325mg Tab) 650 mg PO Q6 PRN PRN Reason: Pain, Mild (1-3) Aspirin (Ecotrin) 81 mg PO DAILY [facility] Last Admin: 05/16/17 10:15 Dose: 81 mg Enoxaparin Sodium (Lovenox) 100 mg SC Q12 [facility] Last Admin: 05/16/17 10:16 Dose: 100 mg Ceftriaxone Sodium 1 gm/ (Sodium Chloride) 100 mls @ 100 mls/hr IVPB DAILY [facility] Last Admin: 05/16/17 10:15 Dose: 100 mls/hr Losartan Potassium (Cozaar) 25 mg PO DAILY [facility] Last Admin: 05/16/17 10:15 Dose: 25 mg Morphine Sulfate (Morphine) 2 mg IV Q3H PRN PRN Reason: Pain, moderate (4-7) Last Admin: 05/16/17 18:20 Dose: 2 mg Ondansetron HCl (Zofran Inj) 4 mg IVP Q6 PRN PRN Reason: Nausea/Vomiting Pantoprazole Sodium (Protonix Ec Tab) 40 mg PO DAILY [facility] Last Admin: 05/16/17 10:15 Dose: 40 mg Polyethylene Glycol (Miralax) 17 gm PO DAILY [facility] Last Admin: 05/16/17 10:18 Dose: 17 gm Rosuvastatin Calcium (Crestor) 10 mg PO HS [facility] Last Admin: 05/15/17 21:56 Dose: 10 mg - Labs Labs: 05/16/17 07:02 05/16/17 07:02 PT 15.8 SECONDS (9.7-12.2) H 05/16/17 11:53 INR 1.4 05/16/17 11:53 APTT 29 SECONDS (21-34) 05/13/17 22:31 - Constitutional Appears: No Acute Distress - Head Exam Head Exam: NORMAL INSPECTION, NORMOCEPHALIC - Eye Exam Eye Exam: EOMI, Normal appearance - ENT Exam ENT Exam: Mucous Membranes Moist - Neck Exam Neck Exam: Normal Inspection - Respiratory Exam Respiratory Exam: Clear to Ausculation Bilateral, NORMAL BREATHING PATTERN. absent: Rhonchi, Wheezes - Cardiovascular Exam Cardiovascular Exam: REGULAR RHYTHM, +S1, +S2 - GI/Abdominal Exam GI & Abdominal Exam: Distended, Tenderness, Normal Bowel Sounds - Extremities Exam Extremities Exam: Normal Inspection. absent: Calf Tenderness, Pedal Edema, Tenderness - Neurological Exam Neurological Exam: Alert, Awake, Oriented x3 - Psychiatric Exam Psychiatric exam: Normal Affect, Normal Mood - Skin Skin Exam: Dry, Intact, Normal Color, Warm Assessment and Plan (1) Pulmonary emboli Assessment & Plan: * SOB, chest pain * CTA: 1. Pulmonary emboli. 2. Pulmonary nodules, indeterminate. Metastatic disease not excluded. Followup as clinically warranted. 3. Liver lesions, indeterminate. Metastatic disease not excluded. Followup as clinically warranted. 4. Incidental/non-acute findings are described above. * Therapeutic Lovenox 100mg SC BID started * Echo- EF 65-70%; mild mitral and tricuspid regurgitation * ASA 81mg PO daily * Morphine 2mg IV Q3 PRN for pain * Hematology consult- Dr. Watkins, help appreciated * Pulmonology Consult - Dr. Johns, help appreciated * Held Lovenox on 05/16/17 for biopsy scheduled for tomorrow Status: Acute (2) NSTEMI (non-ST elevated myocardial infarction) Assessment & Plan: * EKG: NSR @ 90 BPM * EKG- nsr @90 * JANETTE x 3 positive * Lipid panel: TG 92, Chol 117, LDL 65, HDL 28 * ECHO- EF 65-70%; mild mitral and tricuspid regurgitation * Estimate Clerk consult- Dr. Ulloa, help appreciated * continue current management * likely noncardiac elevation of troponins * Stress test scheduled for 05/17/17 Status: Acute (3) Lung nodules Assessment & Plan: * CTA: Pulmonary nodules, indeterminate. Metastatic disease not excluded. Followup as clinically warranted. 3. Liver lesions, indeterminate. Metastatic disease not excluded. Followup as clinically warranted. * Monitor * Pulmonology consult: Dr. Johns, help appreciated Status: Acute (4) Deep venous thrombosis of lower extremity Assessment & Plan: * Diagnosed 04/2017, started on Eliquis currently on 5mg BID - will be held and started on therapeutic lovenox due to PE * Lovenox 100mg sc Q12- HOLD (05/16/17) for biopsy procedure on 05/17/17 Status: Resolved (5) HTN (hypertension) Assessment & Plan: Continued home medications: Valsartan 40mg PO daily Monitor BP Status: Chronic (6) Constipation Assessment & Plan: Abdominal ultrasound- multiple hepatic masses, suspicious of mets; hepatosplenomegaly, fatty liver, thickened gallbladder wall; Liver 20.1cm, speel 13.2cm * Colace 100mg PO BID * Miralax Status: Acute (7) Hyperlipemia Assessment & Plan: Crestor 10mg PO QHS Lipid panel: TG 92, Chol 117, LDL 65, HDL 28 Status: Chronic (8) UTI (urinary tract infection) Assessment & Plan: * UA: + LE * Rocephin 1 gm IVP daily * Urine culture- no growth Status: Acute (9) Abdominal pain Assessment & Plan: GI consult, Dr. Cobos, help appreicated Abdominal ultrasound- multiple hepatic masses, suspicious of mets; hepatosplenomegaly, fatty liver, thickened gallbladder wall; Liver 20.1cm, speel 13.2cm Ordered by GI: * CT triple phase liver protocol- numberous b/l lower lobe pulmonary nodules; hepatic lesions suspicious for mets, hepatomegaly, mild gallbladder wall thickening/perichoecystic edema; retroperitoneal lymph nodes measuring up to 14mm; diverticulosis * GGT 441 * AFP 3.0 * CEA 199.0 * Negative: Hep A IgM Ab, Hep Bs Antigen, Hep B core IgM Ab, Hep C Ab * Iron studies: Iron 45, TIBC 236, 19% sat, 1060 Ferritin * AST 53 * ALT 36 * ALK Phosphatase: 397 * IgG 840, IgA 195.5, IgM 50.2 * Negative: Anti-mitochondrial Ab, Anti-smooth muscle Ab, * Liver/Kid Mircosomes Ab: pending Status: Acute (10) Prophylactic measure Assessment & Plan: * GI PPX: Protonix 40mg PO daily * DVT PPX: Therapeutic lovenox --> HOLD (05/16/17) for biopsy procedure on 05/17/17 * Heart Healthy Diet--> NPO after midnight (05/16/17) * Zofran PRN * ASA 81mg PO Status: Acute <Dick Dozier - Last Filed: 05/17/17 08:24> Objective - Vital Signs/Intake and Output Vital Signs (last 24 hours): Temp Pulse Resp BP Pulse Ox 98.0 F 73 20 124/66 96 05/17/17 04:00 05/17/17 04:05 05/17/17 04:00 05/17/17 04:00 05/17/17 04:00 Intake and Output: 05/17/17 05/17/17 06:59 18:59 Intake Total 0 Balance 0 - Medications Medications: Current Medications Acetaminophen (Tylenol 325mg Tab) 650 mg PO Q6 PRN PRN Reason: Pain, Mild (1-3) Aspirin (Ecotrin) 81 mg PO DAILY [facility] Last Admin: 05/16/17 10:15 Dose: 81 mg Enoxaparin Sodium (Lovenox) 100 mg SC Q12 [facility] Last Admin: 05/16/17 10:16 Dose: 100 mg Ceftriaxone Sodium 1 gm/ (Sodium Chloride) 100 mls @ 100 mls/hr IVPB DAILY [facility] Last Admin: 05/16/17 10:15 Dose: 100 mls/hr Losartan Potassium (Cozaar) 25 mg PO DAILY [facility] Last Admin: 05/16/17 10:15 Dose: 25 mg Morphine Sulfate (Morphine) 2 mg IV Q3H PRN PRN Reason: Pain, moderate (4-7) Last Admin: 05/16/17 22:09 Dose: 2 mg Ondansetron HCl (Zofran Inj) 4 mg IVP Q6 PRN PRN Reason: Nausea/Vomiting Pantoprazole Sodium (Protonix Ec Tab) 40 mg PO DAILY [facility] Last Admin: 05/16/17 10:15 Dose: 40 mg Polyethylene Glycol (Miralax) 17 gm PO DAILY [facility] Last Admin: 05/16/17 10:18 Dose: 17 gm Rosuvastatin Calcium (Crestor) 10 mg PO HS [facility] Last Admin: 05/16/17 22:09 Dose: 10 mg - Labs Labs: 05/16/17 07:02 05/16/17 07:02 PT 15.8 SECONDS (9.7-12.2) H 05/16/17 11:53 INR 1.4 05/16/17 11:53 APTT 29 SECONDS (21-34) 05/13/17 22:31 Attending/Attestation - Attestation I have personally seen and examined this patient.: Yes I have fully participated in the care of the patient.: Yes I have reviewed all pertinent clinical information, including history, physical exam and plan: Yes Notes (Text): 05/17/17 08:24 Patient was seen and examined at bedside with the resident Patient complains of abdominal pain particularly after eating We will continue pain management with morphine as needed Patient is scheduled to have a liver biopsy We'll keep the patient nothing by mouth after midnight and hold her Lovenox for the procedure Discussed with cardiology, GI, oncology. Discussed with the resident agree with the assessment and plan by the resident.
--- NOTE | 2017-05-17 04:21 | CP.PCM.PN ---
Subjective - Date & Time of Evaluation Date of Evaluation: 05/16/17 Time of Evaluation: 14:00 - Subjective Subjective: Has abdominal discomfort Objective - Vital Signs/Intake and Output Vital Signs (last 24 hours): Temp Pulse Resp BP Pulse Ox 98.2 F 76 20 114/60 97 05/16/17 23:55 05/17/17 00:00 05/16/17 23:55 05/16/17 23:55 05/16/17 23:55 Intake and Output: 05/16/17 05/17/17 18:59 06:59 Intake Total 360 Balance 360 - Medications Medications: Current Medications Acetaminophen (Tylenol 325mg Tab) 650 mg PO Q6 PRN PRN Reason: Pain, Mild (1-3) Aspirin (Ecotrin) 81 mg PO DAILY [facility] Last Admin: 05/16/17 10:15 Dose: 81 mg Enoxaparin Sodium (Lovenox) 100 mg SC Q12 [facility] Last Admin: 05/16/17 10:16 Dose: 100 mg Ceftriaxone Sodium 1 gm/ (Sodium Chloride) 100 mls @ 100 mls/hr IVPB DAILY [facility] Last Admin: 05/16/17 10:15 Dose: 100 mls/hr Losartan Potassium (Cozaar) 25 mg PO DAILY [facility] Last Admin: 05/16/17 10:15 Dose: 25 mg Morphine Sulfate (Morphine) 2 mg IV Q3H PRN PRN Reason: Pain, moderate (4-7) Last Admin: 05/16/17 22:09 Dose: 2 mg Ondansetron HCl (Zofran Inj) 4 mg IVP Q6 PRN PRN Reason: Nausea/Vomiting Pantoprazole Sodium (Protonix Ec Tab) 40 mg PO DAILY [facility] Last Admin: 05/16/17 10:15 Dose: 40 mg Polyethylene Glycol (Miralax) 17 gm PO DAILY [facility] Last Admin: 05/16/17 10:18 Dose: 17 gm Rosuvastatin Calcium (Crestor) 10 mg PO HS [facility] Last Admin: 05/16/17 22:09 Dose: 10 mg - Labs Labs: 05/16/17 07:02 05/16/17 07:02 PT 15.8 SECONDS (9.7-12.2) H 05/16/17 11:53 INR 1.4 05/16/17 11:53 APTT 29 SECONDS (21-34) 05/13/17 22:31 - Head Exam Head Exam: ATRAUMATIC - Eye Exam Eye Exam: Normal appearance - ENT Exam ENT Exam: Mucous Membranes Dry - Respiratory Exam Respiratory Exam: NORMAL BREATHING PATTERN - Cardiovascular Exam Cardiovascular Exam: +S1, +S2 - GI/Abdominal Exam GI & Abdominal Exam: Normal Bowel Sounds - Extremities Exam Extremities Exam: Normal Inspection Assessment and Plan (1) Pulmonary emboli Assessment & Plan: on therapeutic anticoagulation ?provoked from malignancy Status: Acute (2) Lesion of lung Assessment & Plan: ?malignancy Status: Acute (3) Liver lesion Assessment & Plan: ?malignancy for IR biopsy tomorrow Status: Acute (4) Anemia Assessment & Plan: work up consistent with chronic disease Status: Acute (5) Coagulopathy Assessment & Plan: anticoagulation Status: Acute (6) Tobacco abuse Assessment & Plan: smoking cessation Status: Acute
[2017-05-17] MEDS ORDERED: Aminophylline 25 mg/ml Inj ONE (07:25)
--- NOTE | 2017-05-17 07:44 | CP.PCM.PN ---
<Shaniqua Thompson - Last Filed: 05/17/17 12:18> Subjective - Date & Time of Evaluation Date of Evaluation: 05/17/17 Time of Evaluation: 07:41 - Subjective Subjective: Gastroenterology Fellow/PGY5 Progress Note Patient continues to have severe diffuse abdominal pain aggravated by food intake. Notes one loose stool yesterday. A 12-point review of systems negative except for as above. Objective - Vital Signs/Intake and Output Vital Signs (last 24 hours): Temp Pulse Resp BP Pulse Ox 98.0 F 73 20 124/66 96 05/17/17 04:00 05/17/17 04:05 05/17/17 04:00 05/17/17 04:00 05/17/17 04:00 Intake and Output: 05/17/17 05/17/17 06:59 18:59 Intake Total 0 Balance 0 - Medications Medications: Current Medications Acetaminophen (Tylenol 325mg Tab) 650 mg PO Q6 PRN PRN Reason: Pain, Mild (1-3) Aspirin (Ecotrin) 81 mg PO DAILY [facility] Last Admin: 05/16/17 10:15 Dose: 81 mg Enoxaparin Sodium (Lovenox) 100 mg SC Q12 [facility] Last Admin: 05/16/17 10:16 Dose: 100 mg Ceftriaxone Sodium 1 gm/ (Sodium Chloride) 100 mls @ 100 mls/hr IVPB DAILY [facility] Last Admin: 05/16/17 10:15 Dose: 100 mls/hr Losartan Potassium (Cozaar) 25 mg PO DAILY [facility] Last Admin: 05/16/17 10:15 Dose: 25 mg Morphine Sulfate (Morphine) 2 mg IV Q3H PRN PRN Reason: Pain, moderate (4-7) Last Admin: 05/16/17 22:09 Dose: 2 mg Ondansetron HCl (Zofran Inj) 4 mg IVP Q6 PRN PRN Reason: Nausea/Vomiting Pantoprazole Sodium (Protonix Ec Tab) 40 mg PO DAILY [facility] Last Admin: 05/16/17 10:15 Dose: 40 mg Polyethylene Glycol (Miralax) 17 gm PO DAILY [facility] Last Admin: 05/16/17 10:18 Dose: 17 gm Rosuvastatin Calcium (Crestor) 10 mg PO HS [facility] Last Admin: 05/16/17 22:09 Dose: 10 mg - Labs Labs: 05/16/17 07:02 05/16/17 07:02 PT 15.8 SECONDS (9.7-12.2) H 05/16/17 11:53 INR 1.4 05/16/17 11:53 APTT 29 SECONDS (21-34) 05/13/17 22:31 - Constitutional Appears: Non-toxic, No Acute Distress - Head Exam Head Exam: ATRAUMATIC, NORMOCEPHALIC - Eye Exam Eye Exam: EOMI, PERRL Pupil Exam: PERRL. absent: Miosis, Mydriatic - ENT Exam ENT Exam: Mucous Membranes Moist, Normal Oropharynx - Neck Exam Neck Exam: Full ROM, Normal Inspection - Respiratory Exam Respiratory Exam: Clear to Ausculation Bilateral. absent: Rales, Rhonchi, Wheezes - Cardiovascular Exam Cardiovascular Exam: RRR, +S1, +S2. absent: Gallop, Rubs - GI/Abdominal Exam GI & Abdominal Exam: Soft, Tenderness, Normal Bowel Sounds. absent: Distended, Firm, Guarding, Rigid, Organomegaly, Rebound - Extremities Exam Extremities Exam: Full ROM. absent: Pedal Edema - Neurological Exam Neurological Exam: Alert, Awake - Psychiatric Exam Psychiatric exam: Normal Affect, Normal Mood - Skin Skin Exam: Dry Assessment and Plan - Assessment and Plan (Free Text) Assessment: 56 year old female with history of Hypertension, Hyperlipidemia, Alcohol Abuse and recently diagnosed Right lower extremity DVT (05/02/17) on [facility] presenting with shortness of breath, chest pain, and abdominal pain. 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 Prior colonoscopy three years ago at [place] endorsed to be normal. Plan: >MELD on admission 18, (05/16) 13 >Hepatitis panel negative >negative ASMA, AMA, pending JOSE, LKM >AFP 3, CEA 199 >Hem/Onc following- appreciate recommendations >supportive care: PPI, pain control >cardiology managing- stress test planned today~800AM >full dose Lovenox held last night and this morning >POD0 (05/17/17) IR liver biopsy >pending pathology >will follow clinical course <Josue Jean - Last Filed: 05/17/17 13:41> Objective - Vital Signs/Intake and Output Vital Signs (last 24 hours): Temp Pulse Resp BP Pulse Ox 98 F 75 20 131/66 95 05/17/17 07:00 05/17/17 07:00 05/17/17 07:00 05/17/17 07:00 05/17/17 07:00 Intake and Output: 05/17/17 05/17/17 06:59 18:59 Intake Total 0 Balance 0 - Medications Medications: Current Medications Acetaminophen (Tylenol 325mg Tab) 650 mg PO Q6 PRN PRN Reason: Pain, Mild (1-3) Last Admin: 05/17/17 11:19 Dose: 650 mg Aspirin (Ecotrin) 81 mg PO DAILY [facility] Last Admin: 05/17/17 11:19 Dose: 81 mg Enoxaparin Sodium (Lovenox) 100 mg SC Q12 [facility] Last Admin: 05/16/17 10:16 Dose: 100 mg Ceftriaxone Sodium 1 gm/ (Sodium Chloride) 100 mls @ 100 mls/hr IVPB DAILY [facility] Last Admin: 05/17/17 10:00 Dose: 100 mls/hr Losartan Potassium (Cozaar) 25 mg PO DAILY [facility] Last Admin: 05/17/17 11:19 Dose: 25 mg Morphine Sulfate (Morphine) 2 mg IV Q3H PRN PRN Reason: Pain, moderate (4-7) Last Admin: 05/17/17 11:32 Dose: 2 mg Ondansetron HCl (Zofran Inj) 4 mg IVP Q6 PRN PRN Reason: Nausea/Vomiting Pantoprazole Sodium (Protonix Ec Tab) 40 mg PO DAILY [facility] Last Admin: 05/17/17 11:19 Dose: 40 mg Polyethylene Glycol (Miralax) 17 gm PO DAILY [facility] Last Admin: 05/17/17 11:39 Dose: Not Given Rosuvastatin Calcium (Crestor) 10 mg PO HS [facility] Last Admin: 05/16/17 22:09 Dose: 10 mg - Labs Labs: 05/17/17 08:13 05/17/17 08:13 PT 15.8 SECONDS (9.7-12.2) H 05/16/17 11:53 INR 1.4 05/16/17 11:53 APTT 29 SECONDS (21-34) 05/13/17 22:31 Attending/Attestation - Attestation I have personally seen and examined this patient.: Yes I have fully participated in the care of the patient.: Yes I have reviewed all pertinent clinical information, including history, physical exam and plan: Yes Notes (Text): 05/17/17 13:39 56 year old female with history of HTN, HLD, DVT on eliquis admitted with CP/SOB , foudn to have PE, NSTEMI, we are evalauting for chronic abdominal pain, found to have multiple liver lesions worrisome for metastatic disease of unknown primary. 1. Abdominal pain 2. Liver lesions 3. Elevated LFTs Plan: -s/p IR guided biopsy today -awaiting path -oncology following -on anticoagulation for PE -continue PPI / miralax -supportive care -viral hepatitis serologies negative, autoimmne serologies negative, no obvious evidence of chronic liver disease/cirrhosis, unremarkable AFP -elevated CEA suggestive of colon primary
[2017-05-17 08:22] LABS: BASO % 0.6 % (0.0-2.0); EOS # 0.2 K/uL (0.0-0.7); EOS % 3.1 % (0.0-4.0); HEMOGLOBIN 10.5 g/dL (11.0-16.0); LYMPH # 0.8 K/uL (1.0-4.3); LYMPH % 10.6 % (20.0-40.0); MEAN CELL VOLUME 89.3 fL (81.0-99.0); MEAN CORPUSCULAR HEMOGLOBIN 29.4 pg (27.0-31.0); MEAN PLATELET VOLUME 9.3 fL (7.2-11.7); MONO # 0.7 K/uL (0.0-0.8); MONO % 9.5 % (0.0-10.0); NEUT # 5.6 K/uL (1.8-7.0); NEUT % 76.2 % (50.0-75.0); RBC 3.58 Mil/uL (3.80-5.20); RED CELL DISTRIBUTION WIDTH 13.3 % (11.5-14.5); WHITE BLOOD COUNT 7.3 K/uL (4.8-10.8)
--- NOTE | 2017-05-17 08:28 | CP.PCM.PN ---
Objective - Vital Signs/Intake and Output Vital Signs (last 24 hours): Temp Pulse Resp BP Pulse Ox 98.0 F 73 20 124/66 96 05/17/17 04:00 05/17/17 04:05 05/17/17 04:00 05/17/17 04:00 05/17/17 04:00 Intake and Output: 05/17/17 05/17/17 06:59 18:59 Intake Total 0 Balance 0 - Medications Medications: Current Medications Acetaminophen (Tylenol 325mg Tab) 650 mg PO Q6 PRN PRN Reason: Pain, Mild (1-3) Aspirin (Ecotrin) 81 mg PO DAILY [facility] Last Admin: 05/16/17 10:15 Dose: 81 mg Enoxaparin Sodium (Lovenox) 100 mg SC Q12 [facility] Last Admin: 05/16/17 10:16 Dose: 100 mg Ceftriaxone Sodium 1 gm/ (Sodium Chloride) 100 mls @ 100 mls/hr IVPB DAILY [facility] Last Admin: 05/16/17 10:15 Dose: 100 mls/hr Losartan Potassium (Cozaar) 25 mg PO DAILY [facility] Last Admin: 05/16/17 10:15 Dose: 25 mg Morphine Sulfate (Morphine) 2 mg IV Q3H PRN PRN Reason: Pain, moderate (4-7) Last Admin: 05/16/17 22:09 Dose: 2 mg Ondansetron HCl (Zofran Inj) 4 mg IVP Q6 PRN PRN Reason: Nausea/Vomiting Pantoprazole Sodium (Protonix Ec Tab) 40 mg PO DAILY [facility] Last Admin: 05/16/17 10:15 Dose: 40 mg Polyethylene Glycol (Miralax) 17 gm PO DAILY [facility] Last Admin: 05/16/17 10:18 Dose: 17 gm Rosuvastatin Calcium (Crestor) 10 mg PO HS [facility] Last Admin: 05/16/17 22:09 Dose: 10 mg - Labs Labs: 05/17/17 08:13 05/16/17 07:02 PT 15.8 SECONDS (9.7-12.2) H 05/16/17 11:53 INR 1.4 05/16/17 11:53 APTT 29 SECONDS (21-34) 05/13/17 22:31
[2017-05-17 08:49] LABS: ALBUMIN 3.2 g/dL (3.5-5.0)
[2017-05-17 08:51] LABS: GFR AFRICAN-AMERICAN > 60; GFR NON-AFRICAN AMERICAN > 60
[2017-05-17 08:52] LABS: ALT/SGPT 39 U/L (9-52); AST/SGOT 51 U/L (14-36); BLOOD UREA NITROGEN 8 mg/dL (7-17)
[2017-05-17 08:53] LABS: CALCIUM 8.7 mg/dl (8.6-10.4); MAGNESIUM 1.9 mg/dL (1.6-2.3)
[2017-05-17] MEDS ORDERED: Propofol 10 mg/ml Inj (20 ML) ONE (09:08)
[2017-05-17] MEDS ORDERED: Lidocaine 2% Inj (20ml) ONE (09:09)
[2017-05-17] MEDS ORDERED: Midazolam 2 MG/2 ML VIAL ONE (09:09)
[2017-05-17] MEDS ORDERED: Absorbable Gelatin Sponge Size 12-7 ONE (09:15)
--- NOTE | 2017-05-17 09:32 | PCM.SURG1 ---
Surgeon's Initial Post Op Note - Surgeon's Notes Surgeon: Edi Chan MD Spray Painting Machine Operator: NONE Type of Anesthesia: IV Sedation Pre-Operative Diagnosis: Liver masses Operative Findings: US showed multiple masses within the right and left liver consistent with metastatic disease. Post-Operative Diagnosis: Liver masses Operation Performed: US guided liver mass biopsy left hepatic lobe. Biopsy tract embolized with gelfoam. Specimen/Specimens Removed: 18 gauge core x 4 Estimated Blood Loss: EBL {In ML}: 1 Blood Products Given: N/A Drains Used: No Drains Post-Op Condition: Fair Date of Surgery/Procedure: 05/17/17 Time of Surgery/Procedure: 09:25
[2017-05-17] MEDS: Pantoprazole 40 mg EC Tab PO SCH (11:19)
[2017-05-17] MEDS: POLYETHYLENE GLYCOL 3350 17 GM/Dose PACKET PO SCH (11:39)
--- NOTE | 2017-05-17 11:43 | US ---
PROCEDURE: Date of procedure: 05/17/2017 Procedure: Ultrasound-guided percutaneous core biopsy of liver mass, CPT 86486 Ultrasound guidance for biopsy, CPT 98402 Medications: The patient was sedated by the anesthesiologist with IV sedation and monitoring. 8 cc LIdociane 2% HISTORY: Liver Masses TECHNIQUE: Following informed consent and procedure time-out, the patient was placed supine on bed and limited ultrasound showed multiple masses in the right and left hepatic lobes. After the patient abdomen was prepped and draped in the usual sterile fashion and the skin anesthetized with 2% lidocaine, an 18 gauge core needle was advanced percutaneously under direct ultrasound guidance into a large left hepatic mass. Upon confirmation of needle position, four core specimens were obtained and sent for routine pathology. The biopsy track was then embolized with Gelfoam. A post biopsy ultrasound performed showed no hematoma. A dressing was applied. IMPRESSION: Ultrasound-guided core biopsy of left liver mass.
--- NOTE | 2017-05-17 15:40 | CP.PCM.PN ---
Subjective - Date & Time of Evaluation Date of Evaluation: 05/17/17 Time of Evaluation: 15:37 - Subjective Subjective: PGY2 Cardiology Progress note for Dr. Ulloa Patient seen and examined at bedside s/p stress test this AM and IR liver biopsy. Patient was resting comfortably on her side. She reported tolerating both the stress and the biopsy well but was in pain and was requesting pain medications. She is unhappy with the diet and is having family bring her food. No acute events overnight as per nursing. Patient denied fever, chills, headache , dizziness, chest pain, palpitation, nausea, vomiting, bowel/bladder complaints , pain in her legs bilaterally. Objective - Vital Signs/Intake and Output Vital Signs (last 24 hours): Temp Pulse Resp BP Pulse Ox 98.2 F 80 19 119/77 96 05/17/17 15:25 05/17/17 15:25 05/17/17 15:25 05/17/17 15:25 05/17/17 15:25 Intake and Output: 05/17/17 05/17/17 06:59 18:59 Intake Total 0 Balance 0 - Medications Medications: Current Medications Acetaminophen (Tylenol 325mg Tab) 650 mg PO Q6 PRN PRN Reason: Pain, Mild (1-3) Last Admin: 05/17/17 11:19 Dose: 650 mg Aspirin (Ecotrin) 81 mg PO DAILY [facility] Last Admin: 05/17/17 11:35 Dose: 81 mg Enoxaparin Sodium (Lovenox) 100 mg SC Q12 [facility] Last Admin: 05/16/17 10:16 Dose: 100 mg Ceftriaxone Sodium 1 gm/ (Sodium Chloride) 100 mls @ 100 mls/hr IVPB DAILY [facility] Last Admin: 05/17/17 10:00 Dose: 100 mls/hr Losartan Potassium (Cozaar) 25 mg PO DAILY [facility] Last Admin: 05/17/17 11:35 Dose: 25 mg Morphine Sulfate (Morphine) 2 mg IV Q3H PRN PRN Reason: Pain, moderate (4-7) Last Admin: 05/17/17 11:32 Dose: 2 mg Ondansetron HCl (Zofran Inj) 4 mg IVP Q6 PRN PRN Reason: Nausea/Vomiting Pantoprazole Sodium (Protonix Ec Tab) 40 mg PO DAILY [facility] Last Admin: 05/17/17 11:19 Dose: 40 mg Polyethylene Glycol (Miralax) 17 gm PO DAILY [facility] Last Admin: 05/17/17 11:39 Dose: Not Given Rosuvastatin Calcium (Crestor) 10 mg PO HS [facility] Last Admin: 05/16/17 22:09 Dose: 10 mg - Labs Labs: 05/17/17 08:13 05/17/17 08:13 PT 15.8 SECONDS (9.7-12.2) H 05/16/17 11:53 INR 1.4 05/16/17 11:53 APTT 29 SECONDS (21-34) 05/13/17 22:31 - Constitutional Appears: Non-toxic, No Acute Distress - Head Exam Head Exam: ATRAUMATIC, NORMAL INSPECTION, NORMOCEPHALIC - Eye Exam Eye Exam: EOMI, Normal appearance. absent: Conjunctival injection, Scleral icterus - ENT Exam ENT Exam: Mucous Membranes Moist - Neck Exam Neck Exam: Full ROM, Normal Inspection - Respiratory Exam Respiratory Exam: Clear to Ausculation Bilateral, NORMAL BREATHING PATTERN. absent: Accessory Muscle Use, Rales, Rhonchi, Wheezes - Cardiovascular Exam Cardiovascular Exam: REGULAR RHYTHM, RRR, +S1, +S2 - GI/Abdominal Exam GI & Abdominal Exam: Distended, Soft, Tenderness (diffuse), Organomegaly Additional comments: dressings s/p biopsy c/d/i chlorhexidine stain around dressing - Extremities Exam Extremities Exam: absent: Pedal Edema - Neurological Exam Neurological Exam: Alert, Awake, Oriented x3 - Psychiatric Exam Psychiatric exam: Normal Affect, Normal Mood - Skin Skin Exam: Dry, Intact, Normal Color, Warm Assessment and Plan - Assessment and Plan (Free Text) Assessment: 56 year old female PMHx HTN, HLD, RLE DVT on eliquis (04/2017) presented on 05/14 with chest pain, headache, and SOB for 1 day Plan: -elevated troponins 0.512 on admission -> 1.0900 -> 0.965 likely noncardiac elevation of enzymes -no acute ST elevations on EKG -Echo: normal size; EF 65-70%; LV diastolic function is normal; RV is normal size; RV systolic function is normal; LA size is normal; RA size is normal; MR is mild; TR is mild -patient is on therapeutic lovenox for pulmonary embolism found on CTA on admission -ASA 81mg po daily -Lovenox 100mg sc q12 -Cozaar 25mg po daily -Crestor 10mg po hs -Exercise stress test negative Case discussed with Dr. Laila Overton PGY2
--- NOTE | 2017-05-17 17:05 | CP.PCM.PN ---
<BearZuleika davidlynseyjuanis Sadaf - Last Filed: 05/17/17 21:23> Subjective - Date & Time of Evaluation Date of Evaluation: 05/17/17 Time of Evaluation: 08:25 - Subjective Subjective: Medicine Note (PGY1) : Dr. Dozier's service Patient was seen and examined at bedside. Patient was s/p liver biopsy and stress test. Patient states that she is well but in minimal pain. Patient reports gas pain. Patient denies chest pain, sob, nausea, vomiting, diarrhea, fever and chills. Objective - Vital Signs/Intake and Output Vital Signs (last 24 hours): Temp Pulse Resp BP Pulse Ox 98.2 F 80 19 119/77 96 05/17/17 15:25 05/17/17 15:25 05/17/17 15:25 05/17/17 15:25 05/17/17 15:25 Intake and Output: 05/17/17 05/17/17 06:59 18:59 Intake Total 0 Balance 0 - Medications Medications: Current Medications Acetaminophen (Tylenol 325mg Tab) 650 mg PO Q6 PRN PRN Reason: Pain, Mild (1-3) Last Admin: 05/17/17 11:19 Dose: 650 mg Aspirin (Ecotrin) 81 mg PO DAILY [facility] Last Admin: 05/17/17 11:35 Dose: 81 mg Enoxaparin Sodium (Lovenox) 100 mg SC Q12 [facility] Last Admin: 05/16/17 10:16 Dose: 100 mg Ceftriaxone Sodium 1 gm/ (Sodium Chloride) 100 mls @ 100 mls/hr IVPB DAILY [facility] Last Admin: 05/17/17 10:00 Dose: 100 mls/hr Losartan Potassium (Cozaar) 25 mg PO DAILY [facility] Last Admin: 05/17/17 11:35 Dose: 25 mg Morphine Sulfate (Morphine) 2 mg IV Q3H PRN PRN Reason: Pain, moderate (4-7) Last Admin: 05/17/17 15:58 Dose: 2 mg Ondansetron HCl (Zofran Inj) 4 mg IVP Q6 PRN PRN Reason: Nausea/Vomiting Pantoprazole Sodium (Protonix Ec Tab) 40 mg PO DAILY [facility] Last Admin: 05/17/17 11:19 Dose: 40 mg Polyethylene Glycol (Miralax) 17 gm PO DAILY [facility] Last Admin: 05/17/17 11:39 Dose: Not Given Rosuvastatin Calcium (Crestor) 10 mg PO HS [facility] Last Admin: 05/16/17 22:09 Dose: 10 mg - Labs Labs: 05/17/17 08:13 05/17/17 08:13 PT 15.8 SECONDS (9.7-12.2) H 05/16/17 11:53 INR 1.4 05/16/17 11:53 APTT 29 SECONDS (21-34) 05/13/17 22:31 Assessment and Plan (1) Pulmonary emboli Assessment & Plan: SOB, chest pain * CTA: 1. Pulmonary emboli. 2. Pulmonary nodules, indeterminate. Metastatic disease not excluded. Followup as clinically warranted. 3. Liver lesions, indeterminate. Metastatic disease not excluded. Followup as clinically warranted. 4. Incidental/non-acute findings are described above. * Echo- normal size; EF 65-70%; LV diastolic function is normal; RV is normal size; RV systolic function is normal; LA size is normal; RA size is normal; MR is mild; TR is mild * Therapeutic Lovenox 100mg SC BID started * ASA 81mg PO daily * Morphine 2mg IV Q3 PRN for pain * Hematology consult- Dr. Watkins, help appreciated * Pulmonology Consult - Dr. Johns, help appreciated * pending liver biopsy of the left mass liver Status: Acute (2) NSTEMI (non-ST elevated myocardial infarction) Assessment & Plan: EKG: NSR @ 90 BPM * EKG- nsr @90 * JANETTE x 3 positive---> 0.512 on admission--->1.0900--->0.965 * Lipid panel: TG 92, Chol 117, LDL 65, HDL 28 * ECHO- EF 65-70%; mild mitral and tricuspid regurgitation * Cable Worker Helper consult- Dr. Ulloa, help appreciated * continue current management: Aspirin 81mg PO daily, Cozaar 25 mg PO daily, Crestor 10mg PO daily * Heart Healthy Diet * likely noncardiac elevation of troponins: 0.512 on admission -> 1.0900 -> 0.965 * Stress test scheduled result ( Negative) Status: Acute (3) Abdominal pain Assessment & Plan: GI consult, Dr. Cobos, help appreicated Abdominal ultrasound- multiple hepatic masses, suspicious of mets; hepatosplenomegaly, fatty liver, thickened gallbladder wall; CBD: Measures 6mm, no stones and no dilation. Liver 20.1cm; diffuse increase echogenicity of the liver parenchyma, multiple ill-defined hypoechoic masses, largest approximately 3.8cm in greatest dimension; suspicious masses, spleen 13.2cm Ordered by GI: * CT triple phase liver protocol- numberous b/l lower lobe pulmonary nodules; hepatic lesions suspicious for mets, hepatomegaly, mild gallbladder wall thickening/perichoecystic edema; retroperitoneal lymph nodes measuring up to 14mm; diverticulosis * GGT 441 * AFP 3.0 * CEA 199.0 * Negative: Hep A IgM Ab, Hep Bs Antigen, Hep B core IgM Ab, Hep C Ab * Iron studies: Iron 45, TIBC 236, 19% sat, 1060 Ferritin * AST 53 * ALT 36 * ALK Phosphatase: 397 * IgG 840, IgA 195.5, IgM 50.2 * Negative: Anti-mitochondrial Ab, Anti-smooth muscle Ab, * Liver/Kid Mircosomes Ab: pending Status: Acute (4) Liver lesion Assessment & Plan: GI consulted ---> Dr. Cobos * Abdominal ultrasound- multiple hepatic masses, suspicious of mets; hepatosplenomegaly, fatty liver, thickened gallbladder wall; CBD: Measures 6mm, no stones and no dilation. Liver 20.1cm; diffuse increase echogenicity of the liver parenchyma, multiple ill-defined hypoechoic masses, largest approximately 3.8cm in greatest dimension; suspicious masses, spleen 13.2cm * CT: Mildly nodular hepatic contour. Borderline splenomegaly, hepatomegaly. 17mm probable splenule. Sub cm gastohepatic lymph nodes, nonspecific. 10mm probably lymph node, retroperitoneal lymph nodes measuring up to 14mm. * Pending liver biopsy result Status: Acute (5) Lung nodules Assessment & Plan: CTA: Pulmonary nodules, indeterminate. Metastatic disease not excluded. Followup as clinically warranted. 3. Liver lesions, indeterminate. Metastatic disease not excluded. Followup as clinically warranted. * Monitor * Pulmonology consult: andry Gil appreciated Status: Acute (6) History of deep vein thrombosis (DVT) of lower extremity Assessment & Plan: Diagnosed 04/2017, started on Eliquis currently on 5mg BID - will be held and started on therapeutic lovenox due to PE * Lovenox 100mg sc Q12- HOLD (05/16/17) for biopsy procedure on 05/17/17 * Restart lovenox 05/18/17 Status: Acute (7) UTI (urinary tract infection) Assessment & Plan: UA: + LE * Rocephin 1 gm IVP daily * Urine culture- no growth * Pending repeat UA result (05/17/17) Status: Acute (8) Hyperlipemia Assessment & Plan: Crestor 10mg PO QHS Lipid panel: TG 92, Chol 117, LDL 65, HDL 28 Status: Chronic (9) HTN (hypertension) Assessment & Plan: Cozaar 25mg PO daily Monitor BP Status: Chronic (10) Constipation Assessment & Plan: Miralax : 17gm PO daily Status: Acute (11) Prophylactic measure Assessment & Plan: GI PPX: Protonix 40mg PO daily DVT PPX: Therapeutic lovenox --> HOLD (05/16/17) for biopsy procedure on 05/17/17, restart for 05/18/17 Status: Acute <Dick Dozier M - Last Filed: 05/18/17 16:11> Objective - Vital Signs/Intake and Output Vital Signs (last 24 hours): Temp Pulse Resp BP Pulse Ox 98.4 F 93 H 20 155/80 H 97 05/18/17 08:42 05/18/17 10:00 05/18/17 07:30 05/18/17 07:30 05/18/17 07:30 Intake and Output: 05/18/17 05/18/17 06:59 18:59 Intake Total 440 Balance 440 - Medications Medications: Current Medications Acetaminophen (Tylenol 325mg Tab) 650 mg PO Q6 PRN PRN Reason: Pain, Mild (1-3) Last Admin: 05/18/17 08:42 Dose: 650 mg Aspirin (Ecotrin) 81 mg PO DAILY [facility] Last Admin: 05/18/17 09:31 Dose: 81 mg Enoxaparin Sodium (Lovenox) 100 mg SC Q12 [facility] Last Admin: 05/18/17 09:29 Dose: 100 mg Ceftriaxone Sodium 1 gm/ (Sodium Chloride) 100 mls @ 100 mls/hr IVPB DAILY [facility] Last Admin: 05/18/17 09:30 Dose: 100 mls/hr Losartan Potassium (Cozaar) 25 mg PO DAILY [facility] Last Admin: 05/18/17 09:31 Dose: 25 mg Morphine Sulfate (Morphine) 2 mg IV Q3H PRN PRN Reason: Pain, moderate (4-7) Last Admin: 05/18/17 16:06 Dose: 2 mg Ondansetron HCl (Zofran Inj) 4 mg IVP Q6 PRN PRN Reason: Nausea/Vomiting Pantoprazole Sodium (Protonix Ec Tab) 40 mg PO DAILY [facility] Last Admin: 05/18/17 09:31 Dose: 40 mg Polyethylene Glycol (Miralax) 17 gm PO DAILY [facility] Last Admin: 05/18/17 09:32 Dose: Not Given Rosuvastatin Calcium (Crestor) 10 mg PO HS [facility] Last Admin: 05/17/17 21:11 Dose: 10 mg - Labs Labs: 05/18/17 07:53 05/18/17 07:53 PT 15.8 SECONDS (9.7-12.2) H 05/16/17 11:53 INR 1.4 05/16/17 11:53 APTT 29 SECONDS (21-34) 05/13/17 22:31 Attending/Attestation - Attestation I have personally seen and examined this patient.: Yes I have fully participated in the care of the patient.: Yes I have reviewed all pertinent clinical information, including history, physical exam and plan: Yes Notes (Text): 05/18/17 16:11 Patient was seen and examined at bedside with the resident Patient is status post to liver biopsy Awaiting pathology result Circumference of abdominal pain Continue current management Follow-up recommendations of oncology and GI Plan for colonoscopy as per GI Discussed the plan of care with the resident and agree with the assessment and plan by the resident.
[2017-05-17 21:24] LABS: SQUAMOUS EPITHIAL 25 /hpf (0-5); URINE BACTERIA FEW (<OCC); URINE BILIRUBIN NEGATIVE (NEGATIVE); URINE BLOOD NEGATIVE (NEGATIVE); URINE CLARITY Hazy (Clear); URINE GLUCOSE (UA) NORMAL (Normal); URINE LEUKOCYTE ESTERASE 1+ Leu/uL (Negative); URINE NITRATE NEGATIVE (NEGATIVE); URINE PROTEIN 1+ mg/dL (NEGATIVE); URINE UROBILINOGEN NORMAL mg/dL (0.2-1.0)
[2017-05-17 21:42] LABS: URINE COLOR YELLOW (YELLOW)
--- NOTE | 2017-05-18 03:57 | CP.PCM.PN ---
<Lynda Bansal - Last Filed: 05/18/17 03:54> Subjective - Date & Time of Evaluation Date of Evaluation: 05/18/17 Time of Evaluation: 03:54 - Subjective Subjective: Medicine Progress Note- Dr. Glover Service Patient was seen and examined at bedside in no acute distress. Patient was asleep when entering the room. She reports having abdominal pain caused by gas in the left side of her abdomen. She has a bowel movement today that was a small amount of liquid. Patient reports feeling abdominal pain and nausea after eating. Patient denies having chest pain, palpitations, shortness of breath, nausea, vomiting, and dysuria. Objective - Vital Signs/Intake and Output Vital Signs (last 24 hours): Temp Pulse Resp BP Pulse Ox 99.1 F 84 20 113/67 95 05/17/17 23:30 05/18/17 00:33 05/17/17 23:30 05/17/17 23:30 05/17/17 23:30 Intake and Output: 05/17/17 05/18/17 18:59 06:59 Intake Total 320 Balance 320 - Medications Medications: Current Medications Acetaminophen (Tylenol 325mg Tab) 650 mg PO Q6 PRN PRN Reason: Pain, Mild (1-3) Last Admin: 05/17/17 18:21 Dose: 650 mg Aspirin (Ecotrin) 81 mg PO DAILY [facility] Last Admin: 05/17/17 11:35 Dose: 81 mg Enoxaparin Sodium (Lovenox) 100 mg SC Q12 [facility] Last Admin: 05/16/17 10:16 Dose: 100 mg Ceftriaxone Sodium 1 gm/ (Sodium Chloride) 100 mls @ 100 mls/hr IVPB DAILY [facility] Last Admin: 05/17/17 10:00 Dose: 100 mls/hr Losartan Potassium (Cozaar) 25 mg PO DAILY [facility] Last Admin: 05/17/17 11:35 Dose: 25 mg Morphine Sulfate (Morphine) 2 mg IV Q3H PRN PRN Reason: Pain, moderate (4-7) Last Admin: 05/18/17 02:57 Dose: 2 mg Ondansetron HCl (Zofran Inj) 4 mg IVP Q6 PRN PRN Reason: Nausea/Vomiting Pantoprazole Sodium (Protonix Ec Tab) 40 mg PO DAILY [facility] Last Admin: 05/17/17 11:19 Dose: 40 mg Polyethylene Glycol (Miralax) 17 gm PO DAILY [facility] Last Admin: 05/17/17 11:39 Dose: Not Given Rosuvastatin Calcium (Crestor) 10 mg PO HS [facility] Last Admin: 05/17/17 21:11 Dose: 10 mg - Labs Labs: 05/17/17 08:13 05/17/17 08:13 PT 15.8 SECONDS (9.7-12.2) H 05/16/17 11:53 INR 1.4 05/16/17 11:53 APTT 29 SECONDS (21-34) 05/13/17 22:31 - Constitutional Appears: No Acute Distress - Head Exam Head Exam: NORMAL INSPECTION, NORMOCEPHALIC - Eye Exam Eye Exam: EOMI, Normal appearance - ENT Exam ENT Exam: Mucous Membranes Moist - Neck Exam Neck Exam: Full ROM, Normal Inspection - Respiratory Exam Respiratory Exam: Clear to Ausculation Bilateral, NORMAL BREATHING PATTERN. absent: Rhonchi, Wheezes - Cardiovascular Exam Cardiovascular Exam: REGULAR RHYTHM, +S1, +S2. absent: Rubs, Murmur - GI/Abdominal Exam GI & Abdominal Exam: Distended, Tenderness, Normal Bowel Sounds - Extremities Exam Extremities Exam: Normal Inspection. absent: Calf Tenderness, Pedal Edema, Tenderness - Neurological Exam Neurological Exam: Alert, Awake, Oriented x3 - Psychiatric Exam Psychiatric exam: Normal Affect, Normal Mood - Skin Skin Exam: Dry, Intact, Normal Color, Warm Assessment and Plan (1) Pulmonary emboli Assessment & Plan: SOB, chest pain * CTA: 1. Pulmonary emboli. 2. Pulmonary nodules, indeterminate. Metastatic disease not excluded. Followup as clinically warranted. 3. Liver lesions, indeterminate. Metastatic disease not excluded. Followup as clinically warranted. 4. Incidental/non-acute findings are described above. * Echo- normal size; EF 65-70%; LV diastolic function is normal; RV is normal size; RV systolic function is normal; LA size is normal; RA size is normal; MR is mild; TR is mild * Therapeutic Lovenox 100mg SC BID started * ASA 81mg PO daily * Morphine 2mg IV Q3 PRN for pain * Hematology consult- Dr. Watkins, help appreciated * Pulmonology Consult - Dr. Johns, help appreciated * Pending liver biopsy of the left mass liver Status: Acute (2) NSTEMI (non-ST elevated myocardial infarction) Assessment & Plan: EKG: NSR @ 90 BPM * EKG- nsr @90 * JANETTE x 3 positive---> 0.512 on admission--->1.0900--->0.965 * Lipid panel: TG 92, Chol 117, LDL 65, HDL 28 * ECHO- EF 65-70%; mild mitral and tricuspid regurgitation * Dimpling Machine Operator consult- Dr. Ulloa, help appreciated * continue current management: Aspirin 81mg PO daily, Cozaar 25 mg PO daily, Crestor 10mg PO daily * Heart Healthy Diet * likely noncardiac elevation of troponins: Status: Acute (3) Lung nodules Assessment & Plan: CTA: Pulmonary nodules, indeterminate. Metastatic disease not excluded. Followup as clinically warranted. 3. Liver lesions, indeterminate. Metastatic disease not excluded. Followup as clinically warranted. * Monitor * Pulmonology consult: Dr. Johns, help appreciated Status: Acute (4) Deep venous thrombosis of lower extremity Assessment & Plan: Diagnosed 04/2017, started on Eliquis currently on 5mg BID - will be held and started on therapeutic lovenox due to PE * Lovenox 100mg sc Q12- HOLD (05/16/17) for biopsy procedure on 05/17/17 * Restart lovenox 05/18/17 Status: Resolved (5) HTN (hypertension) Assessment & Plan: Cozaar 25mg PO daily Monitor BP Status: Chronic (6) Constipation Assessment & Plan: Miralax : 17gm PO daily Status: Acute (7) Hyperlipemia Assessment & Plan: Crestor 10mg PO QHS Lipid panel: TG 92, Chol 117, LDL 65, HDL 28 Status: Chronic (8) UTI (urinary tract infection) Assessment & Plan: UA: + LE * Rocephin 1 gm IVP daily * Urine culture- no growth Repeat UA result (05/17/17): yellow hazy, 1+ protein, 1+ LE, 21 WBC, 25 Squam epith cells, Few Bacteria Status: Acute (9) Abdominal pain Assessment & Plan: GI consult, Dr. Cobos, help appreicated Abdominal ultrasound- multiple hepatic masses, suspicious of mets; hepatosplenomegaly, fatty liver, thickened gallbladder wall; CBD: Measures 6mm, no stones and no dilation. Liver 20.1cm; diffuse increase echogenicity of the liver parenchyma, multiple ill-defined hypoechoic masses, largest approximately 3.8cm in greatest dimension; suspicious masses, spleen 13.2cm Ordered by GI: * CT triple phase liver protocol- numberous b/l lower lobe pulmonary nodules; hepatic lesions suspicious for mets, hepatomegaly, mild gallbladder wall thickening/perichoecystic edema; retroperitoneal lymph nodes measuring up to 14mm; diverticulosis * GGT 441 * AFP 3.0 * CEA 199.0 * Negative: Hep A IgM Ab, Hep Bs Antigen, Hep B core IgM Ab, Hep C Ab * Iron studies: Iron 45, TIBC 236, 19% sat, 1060 Ferritin * AST 53 * ALT 36 * ALK Phosphatase: 397 * IgG 840, IgA 195.5, IgM 50.2 * Negative: Anti-mitochondrial Ab, Anti-smooth muscle Ab, * Liver/Kid Mircosomes Ab: pending Liver Bx: pending results; procedure performs on 05/17/17 Status: Acute (10) Liver lesion Assessment & Plan: GI consulted ---> Dr. Cobos * Abdominal ultrasound- multiple hepatic masses, suspicious of mets; hepatosplenomegaly, fatty liver, thickened gallbladder wall; CBD: Measures 6mm, no stones and no dilation. Liver 20.1cm; diffuse increase echogenicity of the liver parenchyma, multiple ill-defined hypoechoic masses, largest approximately 3.8cm in greatest dimension; suspicious masses, spleen 13.2cm * CT: Mildly nodular hepatic contour. Borderline splenomegaly, hepatomegaly. 17mm probable splenule. Sub cm gastohepatic lymph nodes, nonspecific. 10mm probably lymph node, retroperitoneal lymph nodes measuring up to 14mm. * Pending liver biopsy result Status: Acute (11) Prophylactic measure Assessment & Plan: GI PPX: Protonix 40mg PO daily DVT PPX: Therapeutic lovenox --> HOLD (05/16/17) for biopsy procedure on 05/17/17, Lovenox restarted on 05/18/17 Status: Acute <Dick Dozier - Last Filed: 05/18/17 18:13> Objective - Vital Signs/Intake and Output Vital Signs (last 24 hours): Temp Pulse Resp BP Pulse Ox 98.1 F 73 20 112/69 96 05/18/17 15:00 05/18/17 15:00 05/18/17 15:00 05/18/17 15:00 05/18/17 15:00 Intake and Output: 05/18/17 05/18/17 06:59 18:59 Intake Total 440 Balance 440 - Medications Medications: Current Medications Acetaminophen (Tylenol 325mg Tab) 650 mg PO Q6 PRN PRN Reason: Pain, Mild (1-3) Last Admin: 05/18/17 08:42 Dose: 650 mg Aspirin (Ecotrin) 81 mg PO DAILY [facility] Last Admin: 05/18/17 09:31 Dose: 81 mg Enoxaparin Sodium (Lovenox) 100 mg SC Q12 [facility] Last Admin: 05/18/17 09:29 Dose: 100 mg Ceftriaxone Sodium 1 gm/ (Sodium Chloride) 100 mls @ 100 mls/hr IVPB DAILY [facility] Last Admin: 05/18/17 09:30 Dose: 100 mls/hr Losartan Potassium (Cozaar) 25 mg PO DAILY [facility] Last Admin: 05/18/17 09:31 Dose: 25 mg Morphine Sulfate (Morphine) 2 mg IV Q3H PRN PRN Reason: Pain, moderate (4-7) Last Admin: 05/18/17 16:06 Dose: 2 mg Ondansetron HCl (Zofran Inj) 4 mg IVP Q6 PRN PRN Reason: Nausea/Vomiting Pantoprazole Sodium (Protonix Ec Tab) 40 mg PO DAILY [facility] Last Admin: 05/18/17 09:31 Dose: 40 mg Polyethylene Glycol (Miralax) 17 gm PO DAILY [facility] Last Admin: 05/18/17 09:32 Dose: Not Given Rosuvastatin Calcium (Crestor) 10 mg PO HS [facility] Last Admin: 05/17/17 21:11 Dose: 10 mg - Labs Labs: 05/18/17 07:53 05/18/17 07:53 PT 15.8 SECONDS (9.7-12.2) H 05/16/17 11:53 INR 1.4 05/16/17 11:53 APTT 29 SECONDS (21-34) 05/13/17 22:31 Attending/Attestation - Attestation I have personally seen and examined this patient.: Yes I have fully participated in the care of the patient.: Yes I have reviewed all pertinent clinical information, including history, physical exam and plan: Yes Notes (Text): 05/18/17 18:12 Patient seen and examined at bedside Complains of abdominal pain particularly after eating Continue pain management with IV morphine every 3 hours as needed Awaiting pathology report of the liver biopsy Plan for colonoscopy as per GI Discussed the plan of care with the resident and agree with the assessment and plan by the resident
[2017-05-18 08:00] LABS: BASO # 0.1 K/uL (0.0-0.2); BASO % 0.8 % (0.0-2.0); EOS # 0.2 K/uL (0.0-0.7); EOS % 3.3 % (0.0-4.0); HEMOGLOBIN 10.4 g/dL (11.0-16.0); LYMPH # 0.9 K/uL (1.0-4.3); LYMPH % 12.9 % (20.0-40.0); MEAN CELL VOLUME 89.3 fL (81.0-99.0); MEAN CORPUSCULAR HEMOGLOBIN 29.8 pg (27.0-31.0); MEAN CORPUSCULAR HGB CONC 33.3 g/dL (33.0-37.0); MEAN PLATELET VOLUME 10.1 fL (7.2-11.7); MONO # 0.7 K/uL (0.0-0.8); MONO % 10.2 % (0.0-10.0); NEUT # 5.3 K/uL (1.8-7.0); NEUT % 72.8 % (50.0-75.0); RBC 3.49 Mil/uL (3.80-5.20); RED CELL DISTRIBUTION WIDTH 13.2 % (11.5-14.5); WHITE BLOOD COUNT 7.2 K/uL (4.8-10.8)
[2017-05-18 08:14] LABS: ALBUMIN 3.1 g/dL (3.5-5.0)
[2017-05-18 08:17] LABS: AST/SGOT 50 U/L (14-36); GFR AFRICAN-AMERICAN > 60; GFR NON-AFRICAN AMERICAN > 60
[2017-05-18 08:18] LABS: ALB/GLOB RATIO 1.1 (1.0-2.1); ALT/SGPT 33 U/L (9-52); BLOOD UREA NITROGEN 7 mg/dL (7-17); CALCIUM 8.9 mg/dl (8.6-10.4)
[2017-05-18] MEDS: Enoxaparin 100 mg Syringe SC SCH ×2 (09:29→21:54)
[2017-05-18] MEDS: Pantoprazole 40 mg EC Tab PO SCH (09:31)
[2017-05-18] MEDS: POLYETHYLENE GLYCOL 3350 17 GM/Dose PACKET PO SCH (09:32)
--- NOTE | 2017-05-18 10:19 | CP.PCM.PN ---
<JayShaniqua - Last Filed: 05/18/17 10:17> Subjective - Date & Time of Evaluation Date of Evaluation: 05/18/17 Time of Evaluation: 10:17 - Subjective Subjective: Gastroenterology Fellow/PGY5 Progress Note Patient notes slight improvement in abdominal pain. Continued loss of appetite with pain exacerbated by food intake. No bowel movement yesterday. A 12-point review of systems negative except for as above. Objective - Vital Signs/Intake and Output Vital Signs (last 24 hours): Temp Pulse Resp BP Pulse Ox 98.4 F 90 20 155/80 H 97 05/18/17 08:42 05/18/17 07:30 05/18/17 07:30 05/18/17 07:30 05/18/17 07:30 Intake and Output: 05/18/17 05/18/17 06:59 18:59 Intake Total 440 Balance 440 - Medications Medications: Current Medications Acetaminophen (Tylenol 325mg Tab) 650 mg PO Q6 PRN PRN Reason: Pain, Mild (1-3) Last Admin: 05/18/17 08:42 Dose: 650 mg Aspirin (Ecotrin) 81 mg PO DAILY [facility] Last Admin: 05/18/17 09:31 Dose: 81 mg Enoxaparin Sodium (Lovenox) 100 mg SC Q12 [facility] Last Admin: 05/18/17 09:29 Dose: 100 mg Ceftriaxone Sodium 1 gm/ (Sodium Chloride) 100 mls @ 100 mls/hr IVPB DAILY [facility] Last Admin: 05/18/17 09:30 Dose: 100 mls/hr Losartan Potassium (Cozaar) 25 mg PO DAILY [facility] Last Admin: 05/18/17 09:31 Dose: 25 mg Morphine Sulfate (Morphine) 2 mg IV Q3H PRN PRN Reason: Pain, moderate (4-7) Last Admin: 05/18/17 09:31 Dose: 2 mg Ondansetron HCl (Zofran Inj) 4 mg IVP Q6 PRN PRN Reason: Nausea/Vomiting Pantoprazole Sodium (Protonix Ec Tab) 40 mg PO DAILY [facility] Last Admin: 05/18/17 09:31 Dose: 40 mg Polyethylene Glycol (Miralax) 17 gm PO DAILY [facility] Last Admin: 05/18/17 09:32 Dose: Not Given Rosuvastatin Calcium (Crestor) 10 mg PO [facility] Last Admin: 05/17/17 21:11 Dose: 10 mg - Labs Labs: 05/18/17 07:53 05/18/17 07:53 PT 15.8 SECONDS (9.7-12.2) H 05/16/17 11:53 INR 1.4 05/16/17 11:53 APTT 29 SECONDS (21-34) 05/13/17 22:31 - Constitutional Appears: Non-toxic, No Acute Distress - Head Exam Head Exam: ATRAUMATIC, NORMOCEPHALIC - Eye Exam Eye Exam: EOMI, PERRL Pupil Exam: PERRL. absent: Miosis, Mydriatic - ENT Exam ENT Exam: Mucous Membranes Moist, Normal Oropharynx - Neck Exam Neck Exam: Full ROM, Normal Inspection - Respiratory Exam Respiratory Exam: Clear to Ausculation Bilateral. absent: Rales, Rhonchi, Wheezes - Cardiovascular Exam Cardiovascular Exam: RRR, +S1, +S2. absent: Gallop, Rubs - GI/Abdominal Exam GI & Abdominal Exam: Soft, Tenderness, Normal Bowel Sounds, Organomegaly. absent: Distended, Firm, Guarding, Rigid, Rebound Additional comments: diffuse tenderness to palpation - Extremities Exam Extremities Exam: Normal Inspection. absent: Pedal Edema - Neurological Exam Neurological Exam: Alert, Awake - Psychiatric Exam Psychiatric exam: Normal Affect, Normal Mood - Skin Skin Exam: Dry, Intact, Normal Color, Warm Assessment and Plan - Assessment and Plan (Free Text) Assessment: 56 year old female with history of Hypertension, Hyperlipidemia, Alcohol Abuse and recently diagnosed Right lower extremity DVT (05/02/17) on Eliquis presenting with shortness of breath, chest pain, and abdominal pain. 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 Prior colonoscopy three years ago at [place] endorsed to be normal. Plan: >MELD on admission 18, (05/16) 13 >POD 1 (05/17) IR liver biopsy >follow up pathology >restarted on full dose Lovenox >Hem/Onc managing- appreciate recommendations >Hepatitis panel and autoimmune workup negative >CEA 199, possible primary colon malignancy >heart healthy diet as tolerated >supportive care: PPI, pain control >will benefit from elective colonoscopy >may consider outpatient follow up with GI and Hem/Onc for further workup >will follow clinical course <Josue Jean - Last Filed: 05/18/17 11:45> Objective - Vital Signs/Intake and Output Vital Signs (last 24 hours): Temp Pulse Resp BP Pulse Ox 98.4 F 93 H 20 155/80 H 97 05/18/17 08:42 05/18/17 10:00 05/18/17 07:30 05/18/17 07:30 05/18/17 07:30 Intake and Output: 05/18/17 05/18/17 06:59 18:59 Intake Total 440 Balance 440 - Medications Medications: Current Medications Acetaminophen (Tylenol 325mg Tab) 650 mg PO Q6 PRN PRN Reason: Pain, Mild (1-3) Last Admin: 05/18/17 08:42 Dose: 650 mg Aspirin (Ecotrin) 81 mg PO DAILY [facility] Last Admin: 05/18/17 09:31 Dose: 81 mg Enoxaparin Sodium (Lovenox) 100 mg SC Q12 [facility] Last Admin: 05/18/17 09:29 Dose: 100 mg Ceftriaxone Sodium 1 gm/ (Sodium Chloride) 100 mls @ 100 mls/hr IVPB DAILY [facility] Last Admin: 05/18/17 09:30 Dose: 100 mls/hr Losartan Potassium (Cozaar) 25 mg PO DAILY [facility] Last Admin: 05/18/17 09:31 Dose: 25 mg Morphine Sulfate (Morphine) 2 mg IV Q3H PRN PRN Reason: Pain, moderate (4-7) Last Admin: 05/18/17 09:31 Dose: 2 mg Ondansetron HCl (Zofran Inj) 4 mg IVP Q6 PRN PRN Reason: Nausea/Vomiting Pantoprazole Sodium (Protonix Ec Tab) 40 mg PO DAILY [facility] Last Admin: 05/18/17 09:31 Dose: 40 mg Polyethylene Glycol (Miralax) 17 gm PO DAILY [facility] Last Admin: 05/18/17 09:32 Dose: Not Given Rosuvastatin Calcium (Crestor) 10 mg PO HS [facility] Last Admin: 05/17/17 21:11 Dose: 10 mg - Labs Labs: 05/18/17 07:53 05/18/17 07:53 PT 15.8 SECONDS (9.7-12.2) H 05/16/17 11:53 INR 1.4 05/16/17 11:53 APTT 29 SECONDS (21-34) 05/13/17 22:31 Attending/Attestation - Attestation I have personally seen and examined this patient.: Yes I have fully participated in the care of the patient.: Yes I have reviewed all pertinent clinical information, including history, physical exam and plan: Yes Notes (Text): 05/18/17 11:44 56 year old female with history of HTN, HLD, DVT on eliquis admitted with CP/SOB , foudn to have PE, NSTEMI, we are evalauting for chronic abdominal pain, found to have multiple liver lesions worrisome for metastatic disease of unknown primary. 1. Abdominal pain 2. Liver lesions 3. Elevated LFTs Plan: -s/p IR guided biopsy today -awaiting path -oncology following -on anticoagulation for PE -continue PPI / miralax -supportive care -viral hepatitis serologies negative, autoimmne serologies negative, no obvious evidence of chronic liver disease/cirrhosis, unremarkable AFP -elevated CEA suggestive of colon primary
--- NOTE | 2017-05-18 19:14 | CARD ---
APPROVED REPORT EKG Measurement Heart [id number] DC [id number] [id number] <Conclusion> Normal sinus rhythm with sinus arrhythmia Normal ECG
--- NOTE | 2017-05-19 02:15 | CP.PCM.PN ---
<Lynda Bansal - Last Filed: 05/19/17 02:12> Subjective - Date & Time of Evaluation Date of Evaluation: 05/19/17 Time of Evaluation: 02:12 - Subjective Subjective: Medicine Progress Note- Dr. Dozier Service Patient was seen and examined at bedside in no acute distress. Patient was sleeping comfortably when entering the room. She reports having abdominal pain that is greatest in the left side of her abdomen. Her pain is exacerbated by food, therefore she had not been eating well. She has a bowel movement today that she describes as liquid. Patient denies having chest pain, palpitations, shortness of breath, nausea, vomiting, leg swelling, leg pain and dysuria. Objective - Vital Signs/Intake and Output Vital Signs (last 24 hours): Temp Pulse Resp BP Pulse Ox 98.1 F 86 20 112/69 96 05/18/17 15:00 05/18/17 20:00 05/18/17 15:00 05/18/17 15:00 05/18/17 15:00 - Medications Medications: Current Medications Acetaminophen (Tylenol 325mg Tab) 650 mg PO Q6 PRN PRN Reason: Pain, Mild (1-3) Last Admin: 05/18/17 08:42 Dose: 650 mg Aspirin (Ecotrin) 81 mg PO DAILY [facility] [place] Last Admin: 05/18/17 09:31 Dose: 81 mg Enoxaparin Sodium (Lovenox) 100 mg SC Q12 [facility] [place] Last Admin: 05/18/17 21:54 Dose: 100 mg Ceftriaxone Sodium 1 gm/ (Sodium Chloride) 100 mls @ 100 mls/hr IVPB DAILY [facility] [place] Last Admin: 05/18/17 09:30 Dose: 100 mls/hr Losartan Potassium (Cozaar) 25 mg PO DAILY [facility] [place] Last Admin: 05/18/17 09:31 Dose: 25 mg Morphine Sulfate (Morphine) 2 mg IV Q3H PRN PRN Reason: Pain, moderate (4-7) Last Admin: 05/19/17 00:05 Dose: 2 mg Ondansetron HCl (Zofran Inj) 4 mg IVP Q6 PRN PRN Reason: Nausea/Vomiting Pantoprazole Sodium (Protonix Ec Tab) 40 mg PO DAILY [facility] [place] Last Admin: 05/18/17 09:31 Dose: 40 mg Polyethylene Glycol (Miralax) 17 gm PO DAILY [facility] [place] Last Admin: 05/18/17 09:32 Dose: Not Given Rosuvastatin Calcium (Crestor) 10 mg PO HS [facility] Last Admin: 05/18/17 21:54 Dose: 10 mg - Labs Labs: 05/18/17 07:53 05/18/17 07:53 PT 15.8 SECONDS (9.7-12.2) H 05/16/17 11:53 INR 1.4 05/16/17 11:53 APTT 29 SECONDS (21-34) 05/13/17 22:31 - Constitutional Appears: No Acute Distress - Head Exam Head Exam: NORMAL INSPECTION, NORMOCEPHALIC - Eye Exam Eye Exam: Normal appearance - ENT Exam ENT Exam: Mucous Membranes Moist - Neck Exam Neck Exam: Full ROM, Normal Inspection - Respiratory Exam Respiratory Exam: Clear to Ausculation Bilateral. absent: Rhonchi, Wheezes - Cardiovascular Exam Cardiovascular Exam: REGULAR RHYTHM, +S1, +S2. absent: Murmur - GI/Abdominal Exam GI & Abdominal Exam: Distended, Tenderness, Normal Bowel Sounds - Extremities Exam Extremities Exam: Normal Inspection. absent: Calf Tenderness, Pedal Edema, Tenderness - Neurological Exam Neurological Exam: Alert, Awake, Oriented x3 - Psychiatric Exam Psychiatric exam: Normal Affect, Normal Mood - Skin Skin Exam: Dry, Intact, Normal Color, Warm Assessment and Plan (1) Pulmonary emboli Assessment & Plan: SOB, chest pain * CTA: 1. Pulmonary emboli. 2. Pulmonary nodules, indeterminate. Metastatic disease not excluded. Followup as clinically warranted. 3. Liver lesions, indeterminate. Metastatic disease not excluded. Followup as clinically warranted. 4. Incidental/non-acute findings are described above. * Echo- normal size; EF 65-70%; LV diastolic function is normal; RV is normal size; RV systolic function is normal; LA size is normal; RA size is normal; MR is mild; TR is mild * Therapeutic Lovenox 100mg SC BID started * ASA 81mg PO daily * Morphine 2mg IV Q3 PRN for pain * Hematology consult- Dr. Watkins, help appreciated * Pulmonology Consult - Dr. Johns, help appreciated * Pending liver biopsy of the left mass liver Status: Acute (2) NSTEMI (non-ST elevated myocardial infarction) Assessment & Plan: EKG: NSR @ 90 BPM * EKG- nsr @90 * JANETTE x 3 positive---> 0.512 on admission--->1.0900--->0.965 * Lipid panel: TG 92, Chol 117, LDL 65, HDL 28 * ECHO- EF 65-70%; mild mitral and tricuspid regurgitation * Substitute Nurse consult- Dr. Ulloa, help appreciated * continue current management: Aspirin 81mg PO daily, Cozaar 25 mg PO daily, Crestor 10mg PO daily * Heart Healthy Diet * likely noncardiac elevation of troponins. Status: Acute (3) Lung nodules Assessment & Plan: CTA: Pulmonary nodules, indeterminate. Metastatic disease not excluded. Followup as clinically warranted. 3. Liver lesions, indeterminate. Metastatic disease not excluded. Followup as clinically warranted. * Monitor * Pulmonology consult: Dr. Johns, andry appreciated Status: Acute (4) Deep venous thrombosis of lower extremity Assessment & Plan: Diagnosed 04/2017, started on Eliquis currently on 5mg BID - will be held and started on therapeutic lovenox due to PE * Lovenox 100mg sc Q12- restarted [Was Held (05/16/17) for biopsy procedure on 05/17] * Restart lovenox 05/18/17 Status: Resolved (5) HTN (hypertension) Assessment & Plan: Cozaar 25mg PO daily Monitor BP Status: Chronic (6) Constipation Assessment & Plan: Miralax : 17gm PO daily Status: Acute (7) Hyperlipemia Assessment & Plan: Crestor 10mg PO QHS Lipid panel: TG 92, Chol 117, LDL 65, HDL 28 Status: Chronic (8) UTI (urinary tract infection) Assessment & Plan: UA: + LE * Rocephin 1 gm IVP daily * Urine culture- no growth Repeat UA result (05/17/17): yellow hazy, 1+ protein, 1+ LE, 21 WBC, 25 Squam epith cells, Few Bacteria Status: Acute (9) Abdominal pain Assessment & Plan: GI consult, Dr. Cobos, help appreicated Abdominal ultrasound- multiple hepatic masses, suspicious of mets; hepatosplenomegaly, fatty liver, thickened gallbladder wall; CBD: Measures 6mm, no stones and no dilation. Liver 20.1cm; diffuse increase echogenicity of the liver parenchyma, multiple ill-defined hypoechoic masses, largest approximately 3.8cm in greatest dimension; suspicious masses, spleen 13.2cm Ordered by GI: * CT triple phase liver protocol- numberous b/l lower lobe pulmonary nodules; hepatic lesions suspicious for mets, hepatomegaly, mild gallbladder wall thickening/perichoecystic edema; retroperitoneal lymph nodes measuring up to 14mm; diverticulosis * GGT 441 * AFP 3.0 * CEA 199.0 * Negative: Hep A IgM Ab, Hep Bs Antigen, Hep B core IgM Ab, Hep C Ab * Iron studies: Iron 45, TIBC 236, 19% sat, 1060 Ferritin * AST 53 * ALT 36 * ALK Phosphatase: 397 * IgG 840, IgA 195.5, IgM 50.2 * Negative: Anti-mitochondrial Ab, Anti-smooth muscle Ab, * Liver/Kid Mircosomes Ab: pending Liver Bx: pending results; procedure performed on 05/17/17 As per GI: may benefit from elective colonoscopy; consider outpatient f/u with GI and Hem/Onc for further workup Status: Acute (10) Liver lesion Assessment & Plan: GI consulted ---> Dr. Cobos * Abdominal ultrasound- multiple hepatic masses, suspicious of mets; hepatosplenomegaly, fatty liver, thickened gallbladder wall; CBD: Measures 6mm, no stones and no dilation. Liver 20.1cm; diffuse increase echogenicity of the liver parenchyma, multiple ill-defined hypoechoic masses, largest approximately 3.8cm in greatest dimension; suspicious masses, spleen 13.2cm * CT: Mildly nodular hepatic contour. Borderline splenomegaly, hepatomegaly. 17mm probable splenule. Sub cm gastohepatic lymph nodes, nonspecific. 10mm probably lymph node, retroperitoneal lymph nodes measuring up to 14mm. * Pending liver biopsy result * As per GI: may benefit from elective colonoscopy; consider outpatient f/u with GI and Hem/Onc for further workup Status: Acute (11) Prophylactic measure Assessment & Plan: GI PPX: Protonix 40mg PO daily DVT PPX: Therapeutic lovenox Status: Acute <JacobyDick M - Last Filed: 05/19/17 13:51> Objective - Vital Signs/Intake and Output Vital Signs (last 24 hours): Temp Pulse Resp BP Pulse Ox 98.7 F 86 20 102/69 95 05/19/17 09:50 05/19/17 09:50 05/19/17 09:50 05/19/17 09:50 05/19/17 09:50 - Medications Medications: Current Medications Acetaminophen (Tylenol 325mg Tab) 650 mg PO Q6 PRN PRN Reason: Pain, Mild (1-3) Last Admin: 05/18/17 08:42 Dose: 650 mg Aspirin (Ecotrin) 81 mg PO DAILY [facility] [place] Last Admin: 05/19/17 09:00 Dose: 81 mg Docusate Sodium (Colace) 100 mg PO BID [facility] [place] Last Admin: 05/19/17 10:56 Dose: 100 mg Enoxaparin Sodium (Lovenox) 100 mg SC Q12 [facility] [place] Last Admin: 05/19/17 09:17 Dose: 100 mg Hydromorphone HCl (Dilaudid) 0.5 mg IVP Q3H PRN PRN Reason: Pain, severe (8-10) Last Admin: 05/19/17 10:56 Dose: 0.5 mg Ceftriaxone Sodium 1 gm/ (Sodium Chloride) 100 mls @ 100 mls/hr IVPB DAILY [facility] [place] Last Admin: 05/19/17 09:08 Dose: 100 mls/hr Losartan Potassium (Cozaar) 25 mg PO DAILY [facility] [place] Last Admin: 05/19/17 09:07 Dose: 25 mg Ondansetron HCl (Zofran Inj) 4 mg IVP Q6 PRN PRN Reason: Nausea/Vomiting Pantoprazole Sodium (Protonix Ec Tab) 40 mg PO DAILY [facility] [place] Last Admin: 05/19/17 09:03 Dose: 40 mg Polyethylene Glycol (Miralax) 17 gm PO DAILY [facility] [place] Last Admin: 05/19/17 09:20 Dose: Not Given Rosuvastatin Calcium (Crestor) 10 mg PO HS [facility] [place] Last Admin: 05/18/17 21:54 Dose: 10 mg - Labs Labs: 05/19/17 08:05 05/19/17 08:05 PT 15.8 SECONDS (9.7-12.2) H 05/16/17 11:53 INR 1.4 05/16/17 11:53 APTT 29 SECONDS (21-34) 05/13/17 22:31 Attending/Attestation - Attestation I have personally seen and examined this patient.: Yes I have fully participated in the care of the patient.: Yes I have reviewed all pertinent clinical information, including history, physical exam and plan: Yes Notes (Text): 05/19/17 13:50 Patient seen and examined at bedside Patient still complains of abdominal pain particularly after eating She says that she is trying to eat more now We are awaiting results of the pathology of liver biopsy Continue Lovenox therapeutic dose for pulmonary emboli Plan for colonoscopy when patient is medically stable as per GI Discharge planning when the patient's pain is better controlled. I discussed the plan of care with the resident and agree with the assessment and plan documented.
--- NOTE | 2017-05-19 06:56 | CP.PCM.PN ---
Subjective - Date & Time of Evaluation Date of Evaluation: 05/19/17 Time of Evaluation: 06:56 Objective - Vital Signs/Intake and Output Vital Signs (last 24 hours): Temp Pulse Resp BP Pulse Ox 98.2 F 85 20 110/69 95 05/18/17 23:50 05/18/17 23:50 05/18/17 23:50 05/18/17 23:50 05/18/17 23:50 - Medications Medications: Current Medications Acetaminophen (Tylenol 325mg Tab) 650 mg PO Q6 PRN PRN Reason: Pain, Mild (1-3) Last Admin: 05/18/17 08:42 Dose: 650 mg Aspirin (Ecotrin) 81 mg PO DAILY [facility] Last Admin: 05/18/17 09:31 Dose: 81 mg Enoxaparin Sodium (Lovenox) 100 mg SC Q12 [facility] Last Admin: 05/18/17 21:54 Dose: 100 mg Ceftriaxone Sodium 1 gm/ (Sodium Chloride) 100 mls @ 100 mls/hr IVPB DAILY [facility] Last Admin: 05/18/17 09:30 Dose: 100 mls/hr Losartan Potassium (Cozaar) 25 mg PO DAILY [facility] Last Admin: 05/18/17 09:31 Dose: 25 mg Morphine Sulfate (Morphine) 2 mg IV Q3H PRN PRN Reason: Pain, moderate (4-7) Last Admin: 05/19/17 00:05 Dose: 2 mg Ondansetron HCl (Zofran Inj) 4 mg IVP Q6 PRN PRN Reason: Nausea/Vomiting Pantoprazole Sodium (Protonix Ec Tab) 40 mg PO DAILY [facility] Last Admin: 05/18/17 09:31 Dose: 40 mg Polyethylene Glycol (Miralax) 17 gm PO DAILY [facility] Last Admin: 05/18/17 09:32 Dose: Not Given Rosuvastatin Calcium (Crestor) 10 mg PO HS [facility] Last Admin: 05/18/17 21:54 Dose: 10 mg - Labs Labs: 05/18/17 07:53 05/18/17 07:53 PT 15.8 SECONDS (9.7-12.2) H 05/16/17 11:53 INR 1.4 05/16/17 11:53 APTT 29 SECONDS (21-34) 05/13/17 22:31
[2017-05-19 08:32] LABS: BASO % 0.5 % (0.0-2.0); EOS # 0.3 K/uL (0.0-0.7); EOS % 3.3 % (0.0-4.0); HEMOGLOBIN 10.4 g/dL (11.0-16.0); LYMPH # 0.9 K/uL (1.0-4.3); LYMPH % 11.6 % (20.0-40.0); MEAN CELL VOLUME 89.2 fL (81.0-99.0); MEAN CORPUSCULAR HEMOGLOBIN 29.8 pg (27.0-31.0); MEAN CORPUSCULAR HGB CONC 33.5 g/dL (33.0-37.0); MEAN PLATELET VOLUME 10.3 fL (7.2-11.7); MONO # 0.7 K/uL (0.0-0.8); MONO % 9.5 % (0.0-10.0); NEUT # 5.8 K/uL (1.8-7.0); NEUT % 75.1 % (50.0-75.0); RBC 3.5 Mil/uL (3.80-5.20); WHITE BLOOD COUNT 7.7 K/uL (4.8-10.8)
[2017-05-19 08:51] LABS: AST/SGOT 46 U/L (14-36); BLOOD UREA NITROGEN 9 mg/dL (7-17); GFR AFRICAN-AMERICAN > 60; GFR NON-AFRICAN AMERICAN > 60
[2017-05-19 08:52] LABS: ALT/SGPT 41 U/L (9-52); CALCIUM 8.8 mg/dl (8.6-10.4)
[2017-05-19] MEDS: Pantoprazole 40 mg EC Tab PO SCH (09:03)
[2017-05-19] MEDS: Enoxaparin 100 mg Syringe SC SCH ×2 (09:17→22:34)
[2017-05-19] MEDS: POLYETHYLENE GLYCOL 3350 17 GM/Dose PACKET PO SCH (09:20)
[2017-05-19] MEDS: HYDROmorphone 0.5 mg/0.5 ml ISec IVP PRN ×4 (10:56→23:11)
--- NOTE | 2017-05-20 01:02 | CP.PCM.PN ---
Subjective - Date & Time of Evaluation Date of Evaluation: 05/17/17 Time of Evaluation: 12:00 - Subjective Subjective: Has stomach discomfort. s/p IR liver biopsy Objective - Vital Signs/Intake and Output Vital Signs (last 24 hours): Temp Pulse Resp BP Pulse Ox 98.2 F 73 20 122/65 95 05/19/17 15:30 05/19/17 15:30 05/19/17 15:30 05/19/17 15:30 05/19/17 15:30 Intake and Output: 05/19/17 05/20/17 18:59 06:59 Intake Total 50 Balance 50 - Medications Medications: Current Medications Acetaminophen (Tylenol 325mg Tab) 650 mg PO Q6 PRN PRN Reason: Pain, Mild (1-3) Last Admin: 05/18/17 08:42 Dose: 650 mg Aspirin (Ecotrin) 81 mg PO DAILY [facility] Last Admin: 05/19/17 09:00 Dose: 81 mg Docusate Sodium (Colace) 100 mg PO BID [facility] Last Admin: 05/19/17 18:30 Dose: 100 mg Enoxaparin Sodium (Lovenox) 100 mg SC Q12 [facility] Last Admin: 05/19/17 22:34 Dose: 100 mg Hydromorphone HCl (Dilaudid) 0.5 mg IVP Q3H PRN PRN Reason: Pain, severe (8-10) Last Admin: 05/19/17 23:11 Dose: 0.5 mg Ceftriaxone Sodium 1 gm/ (Sodium Chloride) 100 mls @ 100 mls/hr IVPB DAILY [facility] Last Admin: 05/19/17 09:08 Dose: 100 mls/hr Losartan Potassium (Cozaar) 25 mg PO DAILY [facility] Last Admin: 05/19/17 09:07 Dose: 25 mg Ondansetron HCl (Zofran Inj) 4 mg IVP Q6 PRN PRN Reason: Nausea/Vomiting Pantoprazole Sodium (Protonix Ec Tab) 40 mg PO DAILY [facility] Last Admin: 05/19/17 09:03 Dose: 40 mg Polyethylene Glycol (Miralax) 17 gm PO DAILY [facility] Last Admin: 05/19/17 09:20 Dose: Not Given Rosuvastatin Calcium (Crestor) 10 mg PO HS [facility] Last Admin: 05/19/17 22:30 Dose: 10 mg - Labs Labs: 05/19/17 08:05 05/19/17 08:05 PT 15.8 SECONDS (9.7-12.2) H 05/16/17 11:53 INR 1.4 05/16/17 11:53 APTT 29 SECONDS (21-34) 05/13/17 22:31 - Head Exam Head Exam: ATRAUMATIC - Eye Exam Eye Exam: Normal appearance - ENT Exam ENT Exam: Mucous Membranes Dry - Respiratory Exam Respiratory Exam: NORMAL BREATHING PATTERN - Cardiovascular Exam Cardiovascular Exam: +S1, +S2 - GI/Abdominal Exam GI & Abdominal Exam: Normal Bowel Sounds - Extremities Exam Extremities Exam: Normal Inspection Assessment and Plan (1) Pulmonary emboli Assessment & Plan: therapeutic anticoagulation Status: Acute (2) Lesion of lung Assessment & Plan: ? malignancy Status: Acute (3) Liver lesion Assessment & Plan: s/p liver lesion biopsy f/u pathology Status: Acute (4) Anemia Assessment & Plan: chronic disease Status: Acute (5) Coagulopathy Assessment & Plan: anticoagulation Status: Acute (6) Tobacco abuse Assessment & Plan: smoking cessation Status: Acute
--- NOTE | 2017-05-20 01:06 | CP.PCM.PN ---
Subjective - Date & Time of Evaluation Date of Evaluation: 05/18/17 Time of Evaluation: 15:30 - Subjective Subjective: Has stomach discomfort. Objective - Vital Signs/Intake and Output Vital Signs (last 24 hours): Temp Pulse Resp BP Pulse Ox 98.2 F 73 20 122/65 95 05/19/17 15:30 05/19/17 15:30 05/19/17 15:30 05/19/17 15:30 05/19/17 15:30 Intake and Output: 05/19/17 05/20/17 18:59 06:59 Intake Total 50 Balance 50 - Medications Medications: Current Medications Acetaminophen (Tylenol 325mg Tab) 650 mg PO Q6 PRN PRN Reason: Pain, Mild (1-3) Last Admin: 05/18/17 08:42 Dose: 650 mg Aspirin (Ecotrin) 81 mg PO DAILY [facility] Last Admin: 05/19/17 09:00 Dose: 81 mg Docusate Sodium (Colace) 100 mg PO BID [facility] Last Admin: 05/19/17 18:30 Dose: 100 mg Enoxaparin Sodium (Lovenox) 100 mg SC Q12 [facility] Last Admin: 05/19/17 22:34 Dose: 100 mg Hydromorphone HCl (Dilaudid) 0.5 mg IVP Q3H PRN PRN Reason: Pain, severe (8-10) Last Admin: 05/19/17 23:11 Dose: 0.5 mg Ceftriaxone Sodium 1 gm/ (Sodium Chloride) 100 mls @ 100 mls/hr IVPB DAILY [facility] Last Admin: 05/19/17 09:08 Dose: 100 mls/hr Losartan Potassium (Cozaar) 25 mg PO DAILY [facility] Last Admin: 05/19/17 09:07 Dose: 25 mg Ondansetron HCl (Zofran Inj) 4 mg IVP Q6 PRN PRN Reason: Nausea/Vomiting Pantoprazole Sodium (Protonix Ec Tab) 40 mg PO DAILY [facility] Last Admin: 05/19/17 09:03 Dose: 40 mg Polyethylene Glycol (Miralax) 17 gm PO DAILY [facility] Last Admin: 05/19/17 09:20 Dose: Not Given Rosuvastatin Calcium (Crestor) 10 mg PO HS [facility] Last Admin: 05/19/17 22:30 Dose: 10 mg - Labs Labs: 05/19/17 08:05 05/19/17 08:05 PT 15.8 SECONDS (9.7-12.2) H 05/16/17 11:53 INR 1.4 05/16/17 11:53 APTT 29 SECONDS (21-34) 05/13/17 22:31 - Head Exam Head Exam: ATRAUMATIC - Eye Exam Eye Exam: Normal appearance - ENT Exam ENT Exam: Mucous Membranes Dry - Respiratory Exam Respiratory Exam: NORMAL BREATHING PATTERN - Cardiovascular Exam Cardiovascular Exam: +S1, +S2 - GI/Abdominal Exam GI & Abdominal Exam: Normal Bowel Sounds - Extremities Exam Extremities Exam: Normal Inspection Assessment and Plan (1) Pulmonary emboli Assessment & Plan: therapeutic anticoagulation Status: Acute (2) Lesion of lung Assessment & Plan: ?malignancy Status: Acute (3) Liver lesion Assessment & Plan: f/u biopsy path Status: Acute (4) Anemia Assessment & Plan: chronic disease Status: Acute (5) Coagulopathy Assessment & Plan: anticoagulation Status: Acute (6) Tobacco abuse Assessment & Plan: smoking cessation Status: Acute
--- NOTE | 2017-05-20 01:09 | CP.PCM.PN ---
Subjective - Date & Time of Evaluation Date of Evaluation: 05/19/17 Time of Evaluation: 18:00 - Subjective Subjective: Has abdominal pain. Objective - Vital Signs/Intake and Output Vital Signs (last 24 hours): Temp Pulse Resp BP Pulse Ox 98.2 F 73 20 122/65 95 05/19/17 15:30 05/19/17 15:30 05/19/17 15:30 05/19/17 15:30 05/19/17 15:30 Intake and Output: 05/19/17 05/20/17 18:59 06:59 Intake Total 50 Balance 50 - Medications Medications: Current Medications Acetaminophen (Tylenol 325mg Tab) 650 mg PO Q6 PRN PRN Reason: Pain, Mild (1-3) Last Admin: 05/18/17 08:42 Dose: 650 mg Aspirin (Ecotrin) 81 mg PO DAILY [facility] Last Admin: 05/19/17 09:00 Dose: 81 mg Docusate Sodium (Colace) 100 mg PO BID [facility] Last Admin: 05/19/17 18:30 Dose: 100 mg Enoxaparin Sodium (Lovenox) 100 mg SC Q12 [facility] Last Admin: 05/19/17 22:34 Dose: 100 mg Hydromorphone HCl (Dilaudid) 0.5 mg IVP Q3H PRN PRN Reason: Pain, severe (8-10) Last Admin: 05/19/17 23:11 Dose: 0.5 mg Ceftriaxone Sodium 1 gm/ (Sodium Chloride) 100 mls @ 100 mls/hr IVPB DAILY [facility] Last Admin: 05/19/17 09:08 Dose: 100 mls/hr Losartan Potassium (Cozaar) 25 mg PO DAILY [facility] Last Admin: 05/19/17 09:07 Dose: 25 mg Ondansetron HCl (Zofran Inj) 4 mg IVP Q6 PRN PRN Reason: Nausea/Vomiting Pantoprazole Sodium (Protonix Ec Tab) 40 mg PO DAILY [facility] Last Admin: 05/19/17 09:03 Dose: 40 mg Polyethylene Glycol (Miralax) 17 gm PO DAILY [facility] Last Admin: 05/19/17 09:20 Dose: Not Given Rosuvastatin Calcium (Crestor) 10 mg PO HS [facility] Last Admin: 05/19/17 22:30 Dose: 10 mg - Labs Labs: 05/19/17 08:05 05/19/17 08:05 PT 15.8 SECONDS (9.7-12.2) H 05/16/17 11:53 INR 1.4 05/16/17 11:53 APTT 29 SECONDS (21-34) 05/13/17 22:31 - Head Exam Head Exam: ATRAUMATIC - Eye Exam Eye Exam: Normal appearance - ENT Exam ENT Exam: Mucous Membranes Dry - Respiratory Exam Respiratory Exam: NORMAL BREATHING PATTERN - Cardiovascular Exam Cardiovascular Exam: +S1, +S2 - GI/Abdominal Exam GI & Abdominal Exam: Normal Bowel Sounds - Extremities Exam Extremities Exam: Normal Inspection Assessment and Plan (1) Pulmonary emboli Assessment & Plan: therapeutic lovenox Status: Acute (2) Lesion of lung Assessment & Plan: ?malignancy Status: Acute (3) Liver lesion Assessment & Plan: f/u liver lesio biopsy path Status: Acute (4) Anemia Assessment & Plan: chronic disease Status: Acute (5) Coagulopathy Assessment & Plan: anticoagulation Status: Acute (6) Tobacco abuse Assessment & Plan: smoking cessation Status: Acute
[2017-05-20] MEDS: HYDROmorphone 0.5 mg/0.5 ml ISec IVP PRN ×5 (05:39→19:47)
[2017-05-20 06:55] LABS: INR 1.2; PROTHROMBIN TIME 13.9 SECONDS (9.7-12.2)
--- NOTE | 2017-05-20 07:23 | CP.PCM.PN ---
<JayShaniqua - Last Filed: 05/20/17 12:41> Subjective - Date & Time of Evaluation Date of Evaluation: 05/20/17 Time of Evaluation: 07:03 - Subjective Subjective: Gastroenterology Fellow/PGY5 Progress Note Patient notes persistent abdominal pain with moderate relief with analgesics. Continued poor oral intake. No bowel movement for last six days. A 12-point review of systems negative except for as above. Objective - Vital Signs/Intake and Output Vital Signs (last 24 hours): Temp Pulse Resp BP Pulse Ox 98.7 F 75 86 H 133/72 20 L 05/19/17 23:50 05/19/17 23:50 05/20/17 05:39 05/20/17 05:39 05/20/17 05:39 Intake and Output: 05/20/17 05/20/17 06:59 18:59 Intake Total 240 Balance 240 - Medications Medications: Current Medications Acetaminophen (Tylenol 325mg Tab) 650 mg PO Q6 PRN PRN Reason: Pain, Mild (1-3) Last Admin: 05/18/17 08:42 Dose: 650 mg Aspirin (Ecotrin) 81 mg PO DAILY [facility] Last Admin: 05/19/17 09:00 Dose: 81 mg Docusate Sodium (Colace) 100 mg PO BID [facility] Last Admin: 05/19/17 18:30 Dose: 100 mg Enoxaparin Sodium (Lovenox) 100 mg SC Q12 [facility] Last Admin: 05/19/17 22:34 Dose: 100 mg Hydromorphone HCl (Dilaudid) 0.5 mg IVP Q3H PRN PRN Reason: Pain, severe (8-10) Last Admin: 05/20/17 05:39 Dose: 0.5 mg Ceftriaxone Sodium 1 gm/ (Sodium Chloride) 100 mls @ 100 mls/hr IVPB DAILY [facility] Last Admin: 05/19/17 09:08 Dose: 100 mls/hr Losartan Potassium (Cozaar) 25 mg PO DAILY [facility] Last Admin: 05/19/17 09:07 Dose: 25 mg Ondansetron HCl (Zofran Inj) 4 mg IVP Q6 PRN PRN Reason: Nausea/Vomiting Pantoprazole Sodium (Protonix Ec Tab) 40 mg PO DAILY [facility] Last Admin: 05/19/17 09:03 Dose: 40 mg Polyethylene Glycol (Miralax) 17 gm PO DAILY [facility] Last Admin: 05/19/17 09:20 Dose: Not Given Rosuvastatin Calcium (Crestor) 10 mg PO HS [facility] Last Admin: 05/19/17 22:30 Dose: 10 mg - Labs Labs: 05/19/17 08:05 05/19/17 08:05 PT 15.8 SECONDS (9.7-12.2) H 05/16/17 11:53 INR 1.4 05/16/17 11:53 APTT 29 SECONDS (21-34) 05/13/17 22:31 - Constitutional Appears: Non-toxic, No Acute Distress - Head Exam Head Exam: ATRAUMATIC, NORMOCEPHALIC - Eye Exam Eye Exam: EOMI, PERRL Pupil Exam: PERRL. absent: Miosis, Mydriatic - ENT Exam ENT Exam: Mucous Membranes Moist, Normal Oropharynx - Neck Exam Neck Exam: Full ROM, Normal Inspection - Respiratory Exam Respiratory Exam: Clear to Ausculation Bilateral. absent: Rales, Rhonchi, Wheezes - Cardiovascular Exam Cardiovascular Exam: RRR, +S1, +S2. absent: Gallop, Rubs - GI/Abdominal Exam GI & Abdominal Exam: Soft, Tenderness, Normal Bowel Sounds. absent: Distended, Firm, Guarding, Rigid, Organomegaly, Rebound Additional comments: diffuse discomfort to palpation - Extremities Exam Extremities Exam: Full ROM. absent: Pedal Edema - Neurological Exam Neurological Exam: Alert, Awake - Psychiatric Exam Psychiatric exam: Normal Affect, Normal Mood - Skin Skin Exam: Dry, Intact, Normal Color, Warm Assessment and Plan - Assessment and Plan (Free Text) Assessment: 56 year old female with history of Hypertension, Hyperlipidemia, Alcohol Abuse and recently diagnosed Right lower extremity DVT (05/02/17) on Eliquis presenting with shortness of breath, chest pain, and abdominal pain. 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 Prior colonoscopy three years ago at [place] endorsed to be normal. Plan: >MELD on admission 18, today 9 >follow up pathology from IR liver biopsy (05/17)- to result today >Hem/Onc managing- appreciate recommendations >Hepatitis panel and autoimmune workup negative >CEA 199, possible primary colon malignancy >heart healthy diet as tolerated >supportive care: PPI, pain control >Miralax BID >will benefit from elective outpatient colonoscopy >further recommendations after liver biopsy results <Alondra Britton MD - Last Filed: 05/20/17 14:15> Objective - Vital Signs/Intake and Output Vital Signs (last 24 hours): Temp Pulse Resp BP Pulse Ox 98.2 F 74 18 102/67 74 L 05/20/17 09:04 05/20/17 09:04 05/20/17 09:04 05/20/17 09:04 05/20/17 09:04 Intake and Output: 05/20/17 05/20/17 06:59 18:59 Intake Total 240 Balance 240 - Medications Medications: Current Medications Acetaminophen (Tylenol 325mg Tab) 650 mg PO Q6 PRN PRN Reason: Pain, Mild (1-3) Last Admin: 05/18/17 08:42 Dose: 650 mg Aspirin (Ecotrin) 81 mg PO DAILY [facility] Last Admin: 05/20/17 09:04 Dose: 81 mg Docusate Sodium (Colace) 100 mg PO BID [facility] Last Admin: 05/20/17 09:04 Dose: 100 mg Enoxaparin Sodium (Lovenox) 100 mg SC Q12 [facility] Last Admin: 05/20/17 09:04 Dose: 100 mg Hydromorphone HCl (Dilaudid) 0.5 mg IVP Q3H PRN PRN Reason: Pain, severe (8-10) Last Admin: 05/20/17 12:46 Dose: 0.5 mg Ceftriaxone Sodium 1 gm/ (Sodium Chloride) 100 mls @ 100 mls/hr IVPB DAILY [facility] Last Admin: 05/20/17 10:39 Dose: 100 mls/hr Losartan Potassium (Cozaar) 25 mg PO DAILY [facility] Last Admin: 05/20/17 09:04 Dose: 25 mg Ondansetron HCl (Zofran Inj) 4 mg IVP Q6 PRN PRN Reason: Nausea/Vomiting Pantoprazole Sodium (Protonix Ec Tab) 40 mg PO DAILY [facility] Last Admin: 05/20/17 09:04 Dose: 40 mg Polyethylene Glycol (Miralax) 17 gm PO BID [facility] Last Admin: 05/20/17 09:04 Dose: 17 gm Rosuvastatin Calcium (Crestor) 10 mg PO HS [facility] Last Admin: 05/19/17 22:30 Dose: 10 mg - Labs Labs: 05/20/17 06:28 05/20/17 06:28 PT 13.9 SECONDS (9.7-12.2) H 05/20/17 06:28 INR 1.2 05/20/17 06:28 APTT 37 SECONDS (21-34) H 05/20/17 06:28 Attending/Attestation - Attestation I have personally seen and examined this patient.: Yes I have fully participated in the care of the patient.: Yes I have reviewed all pertinent clinical information, including history, physical exam and plan: Yes Notes (Text): 05/20/17 14:12 patient seen on Gi rounds this am. Agree with assessment and plan. This is a 56 year old female with history of HTN, HLD, DVT on eliquis admitted with CP/SOB, foudn to have PE, NSTEMI, we are evalauting for chronic abdominal pain, found to have multiple liver lesions worrisome for metastatic disease of unknown primary s/p IR guided biopsy pending results. last colonoscopy 3 years ago at [facility] with normal results as per patient and last mammogram 2 years ago which was normal. Results with PMD that we will obtain. Continue anti coagulation for PE. Luminal exam necessity will be decided after path is reviewed. Regular diet and bowel regimen
[2017-05-20 07:26] LABS: ALBUMIN 3.1 g/dL (3.5-5.0)
[2017-05-20 07:29] LABS: AST/SGOT 59 U/L (14-36); BLOOD UREA NITROGEN 9 mg/dL (7-17); GFR AFRICAN-AMERICAN > 60; GFR NON-AFRICAN AMERICAN > 60
[2017-05-20 07:30] LABS: ALT/SGPT 32 U/L (9-52); CALCIUM 8.6 mg/dl (8.6-10.4)
[2017-05-20 07:44] LABS: BASO # 0.1 K/uL (0.0-0.2); BASO % 0.9 % (0.0-2.0); EOS # 0.3 K/uL (0.0-0.7); EOS % 4.2 % (0.0-4.0); HEMOGLOBIN 10.4 g/dL (11.0-16.0); LYMPH # 0.9 K/uL (1.0-4.3); LYMPH % 11.5 % (20.0-40.0); MEAN CELL VOLUME 89.2 fL (81.0-99.0); MEAN CORPUSCULAR HEMOGLOBIN 29.8 pg (27.0-31.0); MEAN CORPUSCULAR HGB CONC 33.4 g/dL (33.0-37.0); MEAN PLATELET VOLUME 10.2 fL (7.2-11.7); MONO # 0.9 K/uL (0.0-0.8); MONO % 11.2 % (0.0-10.0); NEUT # 5.6 K/uL (1.8-7.0); NEUT % 72.2 % (50.0-75.0); NRBC % 0.1 % (0.0-2.0); RBC 3.48 Mil/uL (3.80-5.20); RED CELL DISTRIBUTION WIDTH 13.4 % (11.5-14.5); WHITE BLOOD COUNT 7.8 K/uL (4.8-10.8)
--- NOTE | 2017-05-20 08:01 | CP.PCM.PN ---
Subjective - Date & Time of Evaluation Date of Evaluation: 05/20/17 Time of Evaluation: 07:45 - Subjective Subjective: Cardiology Progress note for Dr. Ulloa Patient seen and examined at bedside resting comfortably. Nursing reported no acute events overnight or over the weekend. Patient continues to complain of abdominal pain exacerbated with eating and lying supine in bed. She denied any headache, dizziness, chest pain, palpitations, SOB, cough, nausea, vomiting, bladder complaints, pain/swelling in her legs b/l. She continues to complain of constipation. She is eagerly awaiting pathology results of her biopsy. Objective - Vital Signs/Intake and Output Vital Signs (last 24 hours): Temp Pulse Resp BP Pulse Ox 98.7 F 75 86 H 133/72 20 L 05/19/17 23:50 05/19/17 23:50 05/20/17 05:39 05/20/17 05:39 05/20/17 05:39 Intake and Output: 05/20/17 05/20/17 06:59 18:59 Intake Total 240 Balance 240 - Medications Medications: Current Medications Acetaminophen (Tylenol 325mg Tab) 650 mg PO Q6 PRN PRN Reason: Pain, Mild (1-3) Last Admin: 05/18/17 08:42 Dose: 650 mg Aspirin (Ecotrin) 81 mg PO DAILY [facility] Last Admin: 05/19/17 09:00 Dose: 81 mg Docusate Sodium (Colace) 100 mg PO BID [facility] Last Admin: 05/19/17 18:30 Dose: 100 mg Enoxaparin Sodium (Lovenox) 100 mg SC Q12 [facility] Last Admin: 05/19/17 22:34 Dose: 100 mg Hydromorphone HCl (Dilaudid) 0.5 mg IVP Q3H PRN PRN Reason: Pain, severe (8-10) Last Admin: 05/20/17 05:39 Dose: 0.5 mg Ceftriaxone Sodium 1 gm/ (Sodium Chloride) 100 mls @ 100 mls/hr IVPB DAILY [facility] Last Admin: 05/19/17 09:08 Dose: 100 mls/hr Losartan Potassium (Cozaar) 25 mg PO DAILY [facility] Last Admin: 05/19/17 09:07 Dose: 25 mg Ondansetron HCl (Zofran Inj) 4 mg IVP Q6 PRN PRN Reason: Nausea/Vomiting Pantoprazole Sodium (Protonix Ec Tab) 40 mg PO DAILY [facility] Last Admin: 05/19/17 09:03 Dose: 40 mg Polyethylene Glycol (Miralax) 17 gm PO BID [facility] Rosuvastatin Calcium (Crestor) 10 mg PO HS [facility] Last Admin: 05/19/17 22:30 Dose: 10 mg - Labs Labs: 05/20/17 06:28 05/20/17 06:28 PT 13.9 SECONDS (9.7-12.2) H 05/20/17 06:28 INR 1.2 05/20/17 06:28 APTT 37 SECONDS (21-34) H 05/20/17 06:28 - Constitutional Appears: Non-toxic, No Acute Distress - Head Exam Head Exam: ATRAUMATIC, NORMAL INSPECTION, NORMOCEPHALIC - Eye Exam Eye Exam: EOMI, Normal appearance. absent: Conjunctival injection, Scleral icterus Pupil Exam: NORMAL ACCOMODATION - ENT Exam ENT Exam: Mucous Membranes Dry - Respiratory Exam Respiratory Exam: Clear to Ausculation Bilateral, NORMAL BREATHING PATTERN. absent: Accessory Muscle Use, Rales, Rhonchi, Wheezes, Respiratory Distress - Cardiovascular Exam Cardiovascular Exam: REGULAR RHYTHM, RRR, +S1, +S2. absent: Murmur - GI/Abdominal Exam GI & Abdominal Exam: Soft, Tenderness (diffuse), Normal Bowel Sounds - Extremities Exam Extremities Exam: Normal Inspection. absent: Pedal Edema - Neurological Exam Neurological Exam: Alert, Awake, Oriented x3 - Psychiatric Exam Psychiatric exam: Normal Affect, Normal Mood - Skin Skin Exam: Dry, Intact, Normal Color, Warm Assessment and Plan - Assessment and Plan (Free Text) Assessment: 56 year old female PMHx HTN, HLD, RLE DVT on eliquis (04/2017) presented on 05/14 with chest pain, headache, and SOB for 1 day. Cardiology was consulted for NSTEMI. Plan: -Elevated troponins 0.512 on admission -> 1.0900 -> 0.965 likely noncardiac elevation of enzymes -No acute ST elevations on EKG -Echo: normal size; EF 65-70%; LV diastolic function is normal; RV is normal size; RV systolic function is normal; LA size is normal; RA size is normal; MR is mild; TR is mild -Exercise stress test 05/17 was negative -Lipid panel T Cholesterol: 117 LDL: 65 HDL: 28 -Lovenox 100mg sc q12 -ASA 81mg po daily -Lovenox 100mg sc q12 -Cozaar 25mg po daily -Crestor 10mg po hs -Heart healthy diet Cardiology will sign off at this time Please continue current management Thank you for the consult; please reconsult if necessary Case discussed with Dr. Laila Overton PGY2
[2017-05-20] MEDS: Enoxaparin 100 mg Syringe SC SCH ×2 (09:04→22:04)
[2017-05-20] MEDS: Pantoprazole 40 mg EC Tab PO SCH (09:04)
[2017-05-20] MEDS: POLYETHYLENE GLYCOL 3350 17 GM/Dose PACKET PO SCH ×2 (09:04→17:37)
--- NOTE | 2017-05-20 15:04 | CP.PCM.CON ---
History of Present Illness - History of Present Illness History of Present Illness: Surgery: Dr. Dewey Reason for consult: DVT w/ PE, on eliquis HPI: Patient is a 56 y/o female recently diagnosed w/ venous thrombosis and placed on Eliquis. Now found to have PE despite anticoagulation therapy. Patient presented to ED with chest pain and SOB, acute onset. Patient states that when she was diagnosed w/ DVT she had pain in her legs. Currently pain subsided. Patient was placed on SC lovenox, therapeutic. PMH: venous thrombus, HTN, HLD PSH: none Social: patient current everyday smoker Review of Systems - Review of Systems All systems: reviewed and no additional remarkable complaints except Review of Systems: unless stated in HPI Past Patient History - Past Medical History & Family History Past Medical History?: Yes - Past Social History Smoking Status: Light Smoker < 10 Cigarettes Daily - CARDIAC Hx Hypercholesterolemia: Yes Hx Hypertension: Yes - PULMONARY Hx Respiratory Disorders: No - NEUROLOGICAL Hx Neurological Disorder: No - HEENT Hx HEENT Problems: Yes Other/Comment: GLASSES FOR READING - RENAL Hx Chronic Kidney Disease: No - ENDOCRINE/METABOLIC Hx Endocrine Disorders: No - HEMATOLOGICAL/ONCOLOGICAL Hx Blood Disorders: No - INTEGUMENTARY Hx Dermatological Problems: No - MUSCULOSKELETAL/RHEUMATOLOGICAL Hx Musculoskeletal Disorders: No Hx Falls: No - GASTROINTESTINAL Hx Gastrointestinal Disorders: No - GENITOURINARY/GYNECOLOGICAL Hx Genitourinary Disorders: No - PSYCHIATRIC Hx Substance Use: No - SURGICAL HISTORY Hx Surgeries: No Other/Comment: CYST LEFT BREAST YEARS - ANESTHESIA Hx Anesthesia: No Meds Allergies/Adverse Reactions: Allergies Allergy/AdvReac Type Severity Reaction Status Date / Time No Known Allergies Allergy Verified 05/02/17 15:29 - Medications Medications: Current Medications Acetaminophen (Tylenol 325mg Tab) 650 mg PO Q6 PRN PRN Reason: Pain, Mild (1-3) Last Admin: 05/18/17 08:42 Dose: 650 mg Aspirin (Ecotrin) 81 mg PO DAILY [facility] Last Admin: 05/20/17 09:04 Dose: 81 mg Docusate Sodium (Colace) 100 mg PO BID [facility] Last Admin: 05/20/17 09:04 Dose: 100 mg Enoxaparin Sodium (Lovenox) 100 mg SC Q12 [facility] Last Admin: 05/20/17 09:04 Dose: 100 mg Hydromorphone HCl (Dilaudid) 0.5 mg IVP Q3H PRN PRN Reason: Pain, severe (8-10) Last Admin: 05/20/17 12:46 Dose: 0.5 mg Ceftriaxone Sodium 1 gm/ (Sodium Chloride) 100 mls @ 100 mls/hr IVPB DAILY [facility] Last Admin: 05/20/17 10:39 Dose: 100 mls/hr Losartan Potassium (Cozaar) 25 mg PO DAILY [facility] Last Admin: 05/20/17 09:04 Dose: 25 mg Ondansetron HCl (Zofran Inj) 4 mg IVP Q6 PRN PRN Reason: Nausea/Vomiting Pantoprazole Sodium (Protonix Ec Tab) 40 mg PO DAILY [facility] Last Admin: 05/20/17 09:04 Dose: 40 mg Polyethylene Glycol (Miralax) 17 gm PO BID [facility] Last Admin: 05/20/17 09:04 Dose: 17 gm Rosuvastatin Calcium (Crestor) 10 mg PO HS [facility] Last Admin: 05/19/17 22:30 Dose: 10 mg Physical Exam - Constitutional Appears: Non-toxic, No Acute Distress - Head Exam Head Exam: ATRAUMATIC, NORMOCEPHALIC - Eye Exam Eye Exam: EOMI, Normal appearance - ENT Exam ENT Exam: Mucous Membranes Moist - Respiratory Exam Respiratory Exam: NORMAL BREATHING PATTERN. absent: Respiratory Distress - Cardiovascular Exam Cardiovascular Exam: REGULAR RHYTHM. absent: Tachycardia - GI/Abdominal Exam GI & Abdominal Exam: Soft. absent: Distended, Tenderness - Extremities Exam Extremities exam: Positive for: normal inspection. Negative for: calf tenderness - Neurological Exam Neurological exam: Alert, Oriented x3 - Psychiatric Exam Psychiatric exam: Normal Affect, Normal Mood - Skin Skin Exam: Dry, Warm Results - Vital Signs Recent Vital Signs: Last Vital Signs Temp 98.2 F 05/20/17 09:04 Pulse 74 05/20/17 09:04 Resp 18 05/20/17 09:04 BP 102/67 05/20/17 09:04 Pulse Ox 74 L 05/20/17 09:04 - Labs Result Diagrams: 05/20/17 06:28 05/20/17 06:28 Labs: Laboratory Results - last 24 hr 05/20/17 05/20/17 05/20/17 06:28 06:28 06:28 WBC 7.8 RBC 3.48 L Hgb 10.4 L Hct 31.1 L MCV 89.2 MCH 29.8 MCHC 33.4 RDW 13.4 Plt Count 245 MPV 10.2 Neut % (Auto) 72.2 Lymph % (Auto) 11.5 L [place] % (Auto) 11.2 H Eos % (Auto) 4.2 H Baso % (Auto) 0.9 Neut # 5.6 Lymph # 0.9 L [place] # 0.9 H Eos # 0.3 Baso # 0.1 PT 13.9 H INR 1.2 APTT 37 H Sodium 130 L Potassium 3.6 Chloride 93 L Carbon Dioxide 28 Anion Gap 13 BUN 9 Creatinine 0.7 Est GFR ( Amer) > 60 Est GFR (Non-Af Amer) > 60 Random Glucose 115 H Calcium 8.6 Phosphorus 3.4 Magnesium 2.0 Total Bilirubin 1.2 AST 59 H D ALT 32 Alkaline Phosphatase 420 H D Total Protein 6.2 L Albumin 3.1 L Globulin 3.1 Albumin/Globulin Ratio 1.0 Assessment & Plan - Assessment and Plan (Free Text) Assessment: 56 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 Maco Rice PGY3
--- NOTE | 2017-05-20 18:00 | CP.PCM.PN ---
Subjective - Date & Time of Evaluation Date of Evaluation: 05/20/17 Time of Evaluation: 09:25 - Subjective Subjective: patient seen and examined. A Denies chest pain or shortness of breath IVC filter Status post biopsy of liver mass Continue anticoagulation Followup biopsy report Objective - Vital Signs/Intake and Output Vital Signs (last 24 hours): Temp Pulse Resp BP Pulse Ox 98.3 F 79 20 107/67 96 05/20/17 16:04 05/20/17 16:04 05/20/17 16:04 05/20/17 16:04 05/20/17 16:04 Intake and Output: 05/20/17 05/20/17 06:59 18:59 Intake Total 240 360 Balance 240 360 - Medications Medications: Current Medications Acetaminophen (Tylenol 325mg Tab) 650 mg PO Q6 PRN PRN Reason: Pain, Mild (1-3) Last Admin: 05/18/17 08:42 Dose: 650 mg Aspirin (Ecotrin) 81 mg PO DAILY [facility] Last Admin: 05/20/17 09:04 Dose: 81 mg Docusate Sodium (Colace) 100 mg PO BID [facility] Last Admin: 05/20/17 17:37 Dose: 100 mg Enoxaparin Sodium (Lovenox) 100 mg SC Q12 [facility] Last Admin: 05/20/17 09:04 Dose: 100 mg Hydromorphone HCl (Dilaudid) 0.5 mg IVP Q3H PRN PRN Reason: Pain, severe (8-10) Last Admin: 05/20/17 15:58 Dose: 0.5 mg Ceftriaxone Sodium 1 gm/ (Sodium Chloride) 100 mls @ 100 mls/hr IVPB DAILY [facility] Last Admin: 05/20/17 10:39 Dose: 100 mls/hr Losartan Potassium (Cozaar) 25 mg PO DAILY [facility] Last Admin: 05/20/17 09:04 Dose: 25 mg Ondansetron HCl (Zofran Inj) 4 mg IVP Q6 PRN PRN Reason: Nausea/Vomiting Pantoprazole Sodium (Protonix Ec Tab) 40 mg PO DAILY [facility] Last Admin: 05/20/17 09:04 Dose: 40 mg Polyethylene Glycol (Miralax) 17 gm PO BID [facility] Last Admin: 05/20/17 17:37 Dose: 17 gm Rosuvastatin Calcium (Crestor) 10 mg PO HS [facility] Last Admin: 05/19/17 22:30 Dose: 10 mg - Labs Labs: 05/20/17 06:28 05/20/17 06:28 PT 13.9 SECONDS (9.7-12.2) H 05/20/17 06:28 INR 1.2 05/20/17 06:28 APTT 37 SECONDS (21-34) H 05/20/17 06:28 Assessment and Plan (1) Pulmonary emboli Status: Acute (2) Lung nodules Status: Acute (3) NSTEMI (non-ST elevated myocardial infarction) Status: Acute (4) Deep venous thrombosis of lower extremity Status: Resolved
--- NOTE | 2017-05-20 19:12 | CP.PCM.PN ---
<Lynda Bansal - Last Filed: 05/20/17 19:09> Subjective - Date & Time of Evaluation Date of Evaluation: 05/20/17 Time of Evaluation: 19:09 - Subjective Subjective: Medicine Progress Note- Dr. Franco's Service Patient was seen and examined at bedside in no acute distress. She reports her abdominal pain is still present. Her appetite has decreased due to food exacerbating her pain. She reports not having a bowel movement for days. Patient states she is walking with no pain or difficulty. Patient denies chest pain, nausea, vomiting, diarrhea, palpitations, and shortness of breath. Objective - Vital Signs/Intake and Output Vital Signs (last 24 hours): Temp Pulse Resp BP Pulse Ox 98.3 F 79 20 107/67 96 05/20/17 16:04 05/20/17 16:04 05/20/17 16:04 05/20/17 16:04 05/20/17 16:04 Intake and Output: 05/20/17 05/21/17 18:59 06:59 Intake Total 360 Balance 360 - Medications Medications: Current Medications Acetaminophen (Tylenol 325mg Tab) 650 mg PO Q6 PRN PRN Reason: Pain, Mild (1-3) Last Admin: 05/18/17 08:42 Dose: 650 mg Aspirin (Ecotrin) 81 mg PO DAILY [facility] Last Admin: 05/20/17 09:04 Dose: 81 mg Docusate Sodium (Colace) 100 mg PO BID [facility] Last Admin: 05/20/17 17:37 Dose: 100 mg Enoxaparin Sodium (Lovenox) 100 mg SC Q12 [facility] Last Admin: 05/20/17 09:04 Dose: 100 mg Hydromorphone HCl (Dilaudid) 0.5 mg IVP Q3H PRN PRN Reason: Pain, severe (8-10) Last Admin: 05/20/17 15:58 Dose: 0.5 mg Ceftriaxone Sodium 1 gm/ (Sodium Chloride) 100 mls @ 100 mls/hr IVPB DAILY [facility] Last Admin: 05/20/17 10:39 Dose: 100 mls/hr Losartan Potassium (Cozaar) 25 mg PO DAILY [facility] Last Admin: 05/20/17 09:04 Dose: 25 mg Ondansetron HCl (Zofran Inj) 4 mg IVP Q6 PRN PRN Reason: Nausea/Vomiting Pantoprazole Sodium (Protonix Ec Tab) 40 mg PO DAILY [facility] Last Admin: 05/20/17 09:04 Dose: 40 mg Polyethylene Glycol (Miralax) 17 gm PO BID [facility] Last Admin: 05/20/17 17:37 Dose: 17 gm Rosuvastatin Calcium (Crestor) 10 mg PO HS [facility] Last Admin: 05/19/17 22:30 Dose: 10 mg - Labs Labs: 05/20/17 06:28 05/20/17 06:28 PT 13.9 SECONDS (9.7-12.2) H 05/20/17 06:28 INR 1.2 05/20/17 06:28 APTT 37 SECONDS (21-34) H 05/20/17 06:28 - Constitutional Appears: No Acute Distress - Head Exam Head Exam: NORMAL INSPECTION, NORMOCEPHALIC - Eye Exam Eye Exam: EOMI, Normal appearance - ENT Exam ENT Exam: Mucous Membranes Moist - Neck Exam Neck Exam: Full ROM, Normal Inspection - Respiratory Exam Respiratory Exam: Clear to Ausculation Bilateral, NORMAL BREATHING PATTERN. absent: Rhonchi, Wheezes - Cardiovascular Exam Cardiovascular Exam: REGULAR RHYTHM, +S1, +S2. absent: Gallop, Rubs, Murmur - GI/Abdominal Exam GI & Abdominal Exam: Distended, Tenderness, Normal Bowel Sounds - Extremities Exam Extremities Exam: Normal Inspection. absent: Calf Tenderness, Pedal Edema, Tenderness - Neurological Exam Neurological Exam: Alert, Awake, Oriented x3 - Psychiatric Exam Psychiatric exam: Normal Affect, Normal Mood - Skin Skin Exam: Dry, Intact, Normal Color, Warm Assessment and Plan (1) Pulmonary emboli Assessment & Plan: SOB, chest pain * CTA: 1. Pulmonary emboli. 2. Pulmonary nodules, indeterminate. Metastatic disease not excluded. Followup as clinically warranted. 3. Liver lesions, indeterminate. Metastatic disease not excluded. Followup as clinically warranted. 4. Incidental/non-acute findings are described above. * Echo- normal size; EF 65-70%; LV diastolic function is normal; RV is normal size; RV systolic function is normal; LA size is normal; RA size is normal; MR is mild; TR is mild * Therapeutic Lovenox 100mg SC BID started * ASA 81mg PO daily * Morphine 2mg IV Q3 PRN for pain * Hematology consult- Dr. Watkins, help appreciated * Pulmonology Consult - Dr. Johns, help appreciated * Pending liver biopsy of the left mass liver * Surgical consult, Dr. Dewey, help appreciated. * As per surgery, patient scheduled for IVC filter on saturday * NPO pmn on 05/21/17 * reevaluate thrombus and f/u LE duplex Status: Acute (2) NSTEMI (non-ST elevated myocardial infarction) Assessment & Plan: EKG: NSR @ 90 BPM * EKG- nsr @90 * JANETTE x 3 positive---> 0.512 on admission--->1.0900--->0.965 * Lipid panel: TG 92, Chol 117, LDL 65, HDL 28 * ECHO- EF 65-70%; mild mitral and tricuspid regurgitation * Stitch Burnisher consult- Dr. Ulloa, help appreciated * continue current management: Aspirin 81mg PO daily, Cozaar 25 mg PO daily, Crestor 10mg PO daily * Heart Healthy Diet * likely noncardiac elevation of troponins. * Stress Test: negative Status: Acute (3) Lung nodules Assessment & Plan: CTA: Pulmonary nodules, indeterminate. Metastatic disease not excluded. Followup as clinically warranted. 3. Liver lesions, indeterminate. Metastatic disease not excluded. Followup as clinically warranted. * Monitor * Pulmonology consult: Dr. Johns, help appreciated Status: Acute (4) Deep venous thrombosis of lower extremity Assessment & Plan: Diagnosed 04/2017, started on Eliquis currently on 5mg BID - will be held and started on therapeutic lovenox due to PE * Lovenox 100mg sc Q12- restarted [Was Held (05/16/17) for biopsy procedure on 05/17] * Restart lovenox 05/18/17 Surgical consult, Dr. Dewey, help appreciated. * As per surgery, patient scheduled for IVC filter on Saturday * NPO pmn on 05/21/17 * Reevaluate thrombus and f/u LE duplex Status: Resolved (5) HTN (hypertension) Assessment & Plan: Cozaar 25mg PO daily Monitor BP Status: Chronic (6) Constipation Assessment & Plan: Miralax : 17gm PO daily Status: Acute (7) Hyperlipemia Assessment & Plan: Crestor 10mg PO QHS Lipid panel: TG 92, Chol 117, LDL 65, HDL 28 Status: Chronic (8) UTI (urinary tract infection) Assessment & Plan: UA: + LE * Rocephin 1 gm IVP daily * Urine culture- no growth Repeat UA result (05/17/17): yellow hazy, 1+ protein, 1+ LE, 21 WBC, 25 Squam epith cells, Few Bacteria Status: Acute (9) Abdominal pain Assessment & Plan: GI consult, Dr. Cobos, help appreicated Abdominal ultrasound- multiple hepatic masses, suspicious of mets; hepatosplenomegaly, fatty liver, thickened gallbladder wall; CBD: Measures 6mm, no stones and no dilation. Liver 20.1cm; diffuse increase echogenicity of the liver parenchyma, multiple ill-defined hypoechoic masses, largest approximately 3.8cm in greatest dimension; suspicious masses, spleen 13.2cm Ordered by GI: * CT triple phase liver protocol- numberous b/l lower lobe pulmonary nodules; hepatic lesions suspicious for mets, hepatomegaly, mild gallbladder wall thickening/perichoecystic edema; retroperitoneal lymph nodes measuring up to 14mm; diverticulosis * GGT 441 * AFP 3.0 * CEA 199.0 * Negative: Hep A IgM Ab, Hep Bs Antigen, Hep B core IgM Ab, Hep C Ab * Iron studies: Iron 45, TIBC 236, 19% sat, 1060 Ferritin * AST 53 * ALT 36 * ALK Phosphatase: 397 * IgG 840, IgA 195.5, IgM 50.2 * Negative: Anti-mitochondrial Ab, Anti-smooth muscle Ab, * Liver/Kid Mircosomes Ab: pending Liver Bx: pending results; procedure performed on 05/17/17 As per GI: may benefit from elective colonoscopy; consider outpatient f/u with GI and Hem/Onc for further workup Status: Acute (10) Liver lesion Assessment & Plan: GI consulted ---> Dr. Cobos * Abdominal ultrasound- multiple hepatic masses, suspicious of mets; hepatosplenomegaly, fatty liver, thickened gallbladder wall; CBD: Measures 6mm, no stones and no dilation. Liver 20.1cm; diffuse increase echogenicity of the liver parenchyma, multiple ill-defined hypoechoic masses, largest approximately 3.8cm in greatest dimension; suspicious masses, spleen 13.2cm * CT: Mildly nodular hepatic contour. Borderline splenomegaly, hepatomegaly. 17mm probable splenule. Sub cm gastohepatic lymph nodes, nonspecific. 10mm probably lymph node, retroperitoneal lymph nodes measuring up to 14mm. * Pending liver biopsy result * As per GI: may benefit from elective colonoscopy; consider outpatient f/u with GI and Hem/Onc for further workup Status: Acute (11) Prophylactic measure Assessment & Plan: GI PPX: Protonix 40mg PO daily DVT PPX: Therapeutic lovenox Status: Acute <Isaiah Franco - Last Filed: 05/21/17 07:39> Objective - Vital Signs/Intake and Output Vital Signs (last 24 hours): Temp Pulse Resp BP Pulse Ox 98 F 76 20 120/65 96 05/21/17 07:28 05/21/17 07:28 05/21/17 07:28 05/21/17 07:28 05/21/17 07:28 - Medications Medications: Current Medications Acetaminophen (Tylenol 325mg Tab) 650 mg PO Q6 PRN PRN Reason: Pain, Mild (1-3) Last Admin: 05/18/17 08:42 Dose: 650 mg Aspirin (Ecotrin) 81 mg PO DAILY [facility] Last Admin: 05/20/17 09:04 Dose: 81 mg Docusate Sodium (Colace) 100 mg PO BID [facility] Last Admin: 05/20/17 17:37 Dose: 100 mg Enoxaparin Sodium (Lovenox) 100 mg SC Q12 [facility] Last Admin: 05/20/17 22:04 Dose: 100 mg Hydromorphone HCl (Dilaudid) 0.5 mg IVP Q3H PRN PRN Reason: Pain, severe (8-10) Last Admin: 05/21/17 07:29 Dose: 0.5 mg Ceftriaxone Sodium 1 gm/ (Sodium Chloride) 100 mls @ 100 mls/hr IVPB DAILY [facility] Last Admin: 05/20/17 10:39 Dose: 100 mls/hr Losartan Potassium (Cozaar) 25 mg PO DAILY [facility] Last Admin: 05/20/17 09:04 Dose: 25 mg Ondansetron HCl (Zofran Inj) 4 mg IVP Q6 PRN PRN Reason: Nausea/Vomiting Pantoprazole Sodium (Protonix Ec Tab) 40 mg PO DAILY [facility] Last Admin: 05/20/17 09:04 Dose: 40 mg Polyethylene Glycol (Miralax) 17 gm PO BID [facility] Last Admin: 05/20/17 17:37 Dose: 17 gm Rosuvastatin Calcium (Crestor) 10 mg PO HS [facility] Last Admin: 05/20/17 22:04 Dose: 10 mg - Labs Labs: 05/21/17 07:08 05/20/17 06:28 PT 13.9 SECONDS (9.7-12.2) H 05/20/17 06:28 INR 1.2 05/20/17 06:28 APTT 37 SECONDS (21-34) H 05/20/17 06:28 Attending/Attestation - Attestation I have personally seen and examined this patient.: Yes I have fully participated in the care of the patient.: Yes I have reviewed all pertinent clinical information, including history, physical exam and plan: Yes Notes (Text): 05/21/17 07:36 Medical attending: Patient was seen and examined by me, agrees the above note by director of medical education. This is my first time meeting the patient and I had reviewed previous notes as well as discussed with the residents, the nurses, and patient. Last week she had a liver biopsy done the results of which are still pending at this time. There is concerning mass/lesion on the liver. She also has a very elevated CEA, and would eventually benefit from a colonoscopy sometime in the future. She came to the hospital with chest pain as well as abdominal pain, she no longer has this when I saw her. She was ultimately found to have a pulmonary embolism. She was previously on PO Eliquis for anticoagulation of a DVT. I explained to the patient that because of the suspicion of malignancy, the unfortunately she was high risk for complications of the DVT and pulmonary embolism I explained to her that while she was already on oral anticoagulation that because she is ready had a pulmonary embolism to try to put an IVC filter to give her additional protection I later spoke with vascular surgery and planning for potentially a place this in on Saturday thank you Isaiah Franco
[2017-05-21] MEDS: HYDROmorphone 0.5 mg/0.5 ml ISec IVP PRN ×3 (01:51→10:36)
[2017-05-21 07:22] LABS: BASO # 0.1 K/uL (0.0-0.2); BASO % 0.9 % (0.0-2.0); EOS # 0.4 K/uL (0.0-0.7); EOS % 4.2 % (0.0-4.0); LYMPH # 1.4 K/uL (1.0-4.3); LYMPH % 14.9 % (20.0-40.0); MEAN CELL VOLUME 88.1 fL (81.0-99.0); MEAN CORPUSCULAR HEMOGLOBIN 29.6 pg (27.0-31.0); MEAN CORPUSCULAR HGB CONC 33.5 g/dL (33.0-37.0); MEAN PLATELET VOLUME 9.6 fL (7.2-11.7); MONO # 0.9 K/uL (0.0-0.8); MONO % 9.7 % (0.0-10.0); NEUT # 6.6 K/uL (1.8-7.0); NEUT % 70.3 % (50.0-75.0); NRBC % 0.1 % (0.0-2.0); RBC 3.73 Mil/uL (3.80-5.20); RED CELL DISTRIBUTION WIDTH 13.1 % (11.5-14.5); WHITE BLOOD COUNT 9.4 K/uL (4.8-10.8)
--- NOTE | 2017-05-21 07:28 | CARD ---
APPROVED REPORT Protocol: JERRY Test Type: TREADMILL Attending Physician: Dr. DU Technologist: GISEL Test Indications: SOB PULMONARY EMBOLI,NSTEMI, LUNG NODU Target HR: 164 bpm Resting ECG: normal Resting Heart Rate: 108 bpm Resting Blood Pressure: 122/80mmHg submaximum (85%): 139 bpm TEST SUMMARY PRETESTWARM-[id number]. MANUALSTAGE [id number]. [id number]. POST EXERCISE Reason for Termination: Dyspnea Target HR: NoMax HR: 129 bpm79% of Maximum Predicted HR: 164 bpm Exercise duration: 0 Stage03:11 min:secExercise capacity: 4.0METs Max Blood Pressure: 130/80mmHg Blood Pressure response to exercise: normal resting BP - appropriate response Heart Rate response to exercise: appropriate Chest Pain: NononeAngina index: 0 Arrhythmia: Nonone ST Change: NononeDeviation: 0 mm INTERPRETATION Stress EKG Conclusion: pT DID WELL WITH STRESS TEST. NO CP WENT A GOOD AMOUNT OF mets OUTPT [facility]
[2017-05-21 07:41] LABS: ALBUMIN 3.2 g/dL (3.5-5.0)
[2017-05-21 07:44] LABS: AST/SGOT 65 U/L (14-36); GFR AFRICAN-AMERICAN > 60; GFR NON-AFRICAN AMERICAN > 60
[2017-05-21 07:45] LABS: ALT/SGPT 47 U/L (9-52); BLOOD UREA NITROGEN 7 mg/dL (7-17); CALCIUM 9.1 mg/dl (8.6-10.4); MAGNESIUM 2.2 mg/dL (1.6-2.3)
--- NOTE | 2017-05-21 08:58 | CP.PCM.PN ---
Subjective - Date & Time of Evaluation Date of Evaluation: 05/21/17 Time of Evaluation: 08:55 - Subjective Subjective: Surgery: Dr. Dewey Patient doing well today. Understands procedure for IVC filter tomorrow. She denies pain in her legs, denies CP or SOB. Objective - Vital Signs/Intake and Output Vital Signs (last 24 hours): Temp Pulse Resp BP Pulse Ox 98 F 76 20 120/65 96 05/21/17 07:28 05/21/17 07:28 05/21/17 07:28 05/21/17 07:28 05/21/17 07:28 - Medications Medications: Current Medications Acetaminophen (Tylenol 325mg Tab) 650 mg PO Q6 PRN PRN Reason: Pain, Mild (1-3) Last Admin: 05/18/17 08:42 Dose: 650 mg Aspirin (Ecotrin) 81 mg PO DAILY [facility] Last Admin: 05/20/17 09:04 Dose: 81 mg Docusate Sodium (Colace) 100 mg PO BID [facility] Last Admin: 05/20/17 17:37 Dose: 100 mg Enoxaparin Sodium (Lovenox) 100 mg SC Q12 [facility] Last Admin: 05/20/17 22:04 Dose: 100 mg Hydromorphone HCl (Dilaudid) 0.5 mg IVP Q3H PRN PRN Reason: Pain, severe (8-10) Last Admin: 05/21/17 07:29 Dose: 0.5 mg Ceftriaxone Sodium 1 gm/ (Sodium Chloride) 100 mls @ 100 mls/hr IVPB DAILY [facility] Last Admin: 05/20/17 10:39 Dose: 100 mls/hr Losartan Potassium (Cozaar) 25 mg PO DAILY [facility] Last Admin: 05/20/17 09:04 Dose: 25 mg Ondansetron HCl (Zofran Inj) 4 mg IVP Q6 PRN PRN Reason: Nausea/Vomiting Pantoprazole Sodium (Protonix Ec Tab) 40 mg PO DAILY [facility] Last Admin: 05/20/17 09:04 Dose: 40 mg Polyethylene Glycol (Miralax) 17 gm PO BID [facility] Last Admin: 05/20/17 17:37 Dose: 17 gm Rosuvastatin Calcium (Crestor) 10 mg PO HS [facility] Last Admin: 05/20/17 22:04 Dose: 10 mg - Labs Labs: 05/21/17 07:08 05/21/17 07:08 PT 13.9 SECONDS (9.7-12.2) H 05/20/17 06:28 INR 1.2 05/20/17 06:28 APTT 37 SECONDS (21-34) H 05/20/17 06:28 - Constitutional Appears: Non-toxic, No Acute Distress - Head Exam Head Exam: ATRAUMATIC, NORMOCEPHALIC - Eye Exam Eye Exam: EOMI, Normal appearance - ENT Exam ENT Exam: Mucous Membranes Moist - Respiratory Exam Respiratory Exam: NORMAL BREATHING PATTERN. absent: Respiratory Distress - Cardiovascular Exam Cardiovascular Exam: REGULAR RHYTHM. absent: Tachycardia - GI/Abdominal Exam GI & Abdominal Exam: Soft. absent: Distended, Tenderness - Extremities Exam Extremities Exam: absent: Calf Tenderness - Skin Skin Exam: Dry, Intact, Warm Assessment and Plan - Assessment and Plan (Free Text) Assessment: 56 y/o female w/ DVT and PE Plan: -plan for IVC filter placement saturday -NPO pmn -am labs -consent in chart, procedure discussed with patient and all questions answered -d/w Dr. Dor[facility] PGY3
--- NOTE | 2017-05-21 09:08 | CP.PCM.PN ---
<JayShaniqua - Last Filed: 05/21/17 09:04> Subjective - Date & Time of Evaluation Date of Evaluation: 05/21/17 Time of Evaluation: 09:04 - Subjective Subjective: Gastroenterology Fellow/PGY5 Progress Note Patient continues to have abdominal pain with moderate relief from analgesics. Slight improvement in oral intake. Notes large formed bowel movement last night. A 12-point review of systems negative except for as above. Objective - Vital Signs/Intake and Output Vital Signs (last 24 hours): Temp Pulse Resp BP Pulse Ox 98 F 76 20 120/65 96 05/21/17 07:28 05/21/17 07:28 05/21/17 07:28 05/21/17 07:28 05/21/17 07:28 - Medications Medications: Current Medications Acetaminophen (Tylenol 325mg Tab) 650 mg PO Q6 PRN PRN Reason: Pain, Mild (1-3) Last Admin: 05/18/17 08:42 Dose: 650 mg Aspirin (Ecotrin) 81 mg PO DAILY [facility] Last Admin: 05/20/17 09:04 Dose: 81 mg Docusate Sodium (Colace) 100 mg PO BID [facility] Last Admin: 05/20/17 17:37 Dose: 100 mg Enoxaparin Sodium (Lovenox) 100 mg SC Q12 [facility] Last Admin: 05/20/17 22:04 Dose: 100 mg Hydromorphone HCl (Dilaudid) 0.5 mg IVP Q3H PRN PRN Reason: Pain, severe (8-10) Last Admin: 05/21/17 07:29 Dose: 0.5 mg Ceftriaxone Sodium 1 gm/ (Sodium Chloride) 100 mls @ 100 mls/hr IVPB DAILY [facility] Last Admin: 05/20/17 10:39 Dose: 100 mls/hr Losartan Potassium (Cozaar) 25 mg PO DAILY [facility] Last Admin: 05/20/17 09:04 Dose: 25 mg Ondansetron HCl (Zofran Inj) 4 mg IVP Q6 PRN PRN Reason: Nausea/Vomiting Pantoprazole Sodium (Protonix Ec Tab) 40 mg PO DAILY [facility] Last Admin: 05/20/17 09:04 Dose: 40 mg Polyethylene Glycol (Miralax) 17 gm PO BID [facility] Last Admin: 05/20/17 17:37 Dose: 17 gm Rosuvastatin Calcium (Crestor) 10 mg PO HS [facility] Last Admin: 05/20/17 22:04 Dose: 10 mg - Labs Labs: 05/21/17 07:08 05/21/17 07:08 PT 13.9 SECONDS (9.7-12.2) H 05/20/17 06:28 INR 1.2 05/20/17 06:28 APTT 37 SECONDS (21-34) H 05/20/17 06:28 - Constitutional Appears: Non-toxic, No Acute Distress - Head Exam Head Exam: ATRAUMATIC, NORMOCEPHALIC - Eye Exam Eye Exam: EOMI, PERRL Pupil Exam: PERRL. absent: Miosis, Mydriatic - ENT Exam ENT Exam: Mucous Membranes Moist, Normal Oropharynx - Neck Exam Neck Exam: Full ROM, Normal Inspection - Respiratory Exam Respiratory Exam: Clear to Ausculation Bilateral. absent: Rales, Rhonchi, Wheezes - Cardiovascular Exam Cardiovascular Exam: RRR, +S1, +S2. absent: Gallop, Rubs - GI/Abdominal Exam GI & Abdominal Exam: Soft, Tenderness, Normal Bowel Sounds, Organomegaly. absent: Distended, Firm, Guarding, Rigid, Rebound Additional comments: B/L UQ tenderness to palpation - Extremities Exam Extremities Exam: Normal Inspection. absent: Pedal Edema - Neurological Exam Neurological Exam: Alert, Awake - Psychiatric Exam Psychiatric exam: Normal Affect, Normal Mood - Skin Skin Exam: Dry, Intact, Normal Color, Warm Assessment and Plan - Assessment and Plan (Free Text) Assessment: 56 year old female with history of Hypertension, Hyperlipidemia, Alcohol Abuse and recently diagnosed Right lower extremity DVT (05/02/17) on Eliqu presenting with shortness of breath, chest pain, and abdominal pain. 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 Prior colonoscopy three years ago at [place] endorsed to be normal. Plan: >MELD on admission 18, today 9 >liver biopsy (05/17)discussed with pathologist- malignant, not HCC, performing stains, final diagnosis today >CEA 199, possible primary colon malignancy >awaiting [place] colonoscopy records >endorsed mammogram 2014- left breast 2 o'clock nodular cyst >recommend further investigation on if was evaluated by surgeon- patientnstates workup at [facility] 2 years ago >Hem/Onc managing- appreciate recommendations >Hepatitis panel and autoimmune workup negative >heart healthy diet as tolerated >supportive care: PPI, pain control >Miralax BID >will benefit from elective outpatient colonoscopy <J Carlos Cobos - Last Filed: 05/21/17 09:42> Objective - Vital Signs/Intake and Output Vital Signs (last 24 hours): Temp Pulse Resp BP Pulse Ox 98 F 76 20 120/65 96 05/21/17 07:28 05/21/17 07:28 05/21/17 07:28 05/21/17 07:28 05/21/17 07:28 - Medications Medications: Current Medications Acetaminophen (Tylenol 325mg Tab) 650 mg PO Q6 PRN PRN Reason: Pain, Mild (1-3) Last Admin: 05/18/17 08:42 Dose: 650 mg Aspirin (Ecotrin) 81 mg PO DAILY [facility] Last Admin: 05/21/17 09:14 Dose: 81 mg Docusate Sodium (Colace) 100 mg PO BID [facility] Last Admin: 05/21/17 09:14 Dose: 100 mg Enoxaparin Sodium (Lovenox) 100 mg SC Q12 [facility] Last Admin: 05/21/17 09:13 Dose: 100 mg Hydromorphone HCl (Dilaudid) 0.5 mg IVP Q3H PRN PRN Reason: Pain, severe (8-10) Last Admin: 05/21/17 07:29 Dose: 0.5 mg Ceftriaxone Sodium 1 gm/ (Sodium Chloride) 100 mls @ 100 mls/hr IVPB DAILY [facility] Last Admin: 05/21/17 09:14 Dose: 100 mls/hr Losartan Potassium (Cozaar) 25 mg PO DAILY [facility] Last Admin: 05/21/17 09:14 Dose: 25 mg Ondansetron HCl (Zofran Inj) 4 mg IVP Q6 PRN PRN Reason: Nausea/Vomiting Pantoprazole Sodium (Protonix Ec Tab) 40 mg PO DAILY [facility] Last Admin: 05/21/17 09:14 Dose: 40 mg Polyethylene Glycol (Miralax) 17 gm PO BID [facility] Last Admin: 05/21/17 09:16 Dose: Not Given Rosuvastatin Calcium (Crestor) 10 mg PO HS [facility] Last Admin: 05/20/17 22:04 Dose: 10 mg - Labs Labs: 05/21/17 07:08 05/21/17 07:08 PT 13.9 SECONDS (9.7-12.2) H 05/20/17 06:28 INR 1.2 05/20/17 06:28 APTT 37 SECONDS (21-34) H 05/20/17 06:28 Attending/Attestation - Attestation I have personally seen and examined this patient.: Yes I have fully participated in the care of the patient.: Yes I have reviewed all pertinent clinical information, including history, physical exam and plan: Yes Notes (Text): 05/21/17 09:37 I have seen and examined patient with GI fellow. No acute events overnight, she continues to endorse persistent epigastric and RUQ abdominal pain. She denies nausea, vomiting, diarrhea, fever/chills. Had a large bowel movement yesterday, tolerating PO diet. Review of vitals from today are normal. Cirrhosis - possibly secondary to ETOH Hepatic lesions concerning for metastatic disease, s/p IR guided biopsy Acute PE on lovenox HTN / Hyperlipidemia - Diet as tolerated - Awaiting final pathology results from liver biopsy - Pain control - Patient would certainly benefit from endoscopic evaluation for additional diagnosis, procedure deferred for time being given treatment of acute PE - Follow up oncology recommendations - If patient tolerating diet, from GI perspective ok to discharge home with subsequent outpatient follow up
[2017-05-21] MEDS: Enoxaparin 100 mg Syringe SC SCH ×2 (09:13→21:43)
[2017-05-21] MEDS: Pantoprazole 40 mg EC Tab PO SCH (09:14)
[2017-05-21] MEDS: POLYETHYLENE GLYCOL 3350 17 GM/Dose PACKET PO SCH ×4 (09:14→17:40)
[2017-05-21] MEDS: HYDROmorphone 1 mg/ml ISec IVP PRN ×3 (14:05→21:42)
--- NOTE | 2017-05-21 20:06 | CP.PCM.PN ---
<Lynda Bansal - Last Filed: 05/21/17 20:02> Subjective - Date & Time of Evaluation Date of Evaluation: 05/21/17 Time of Evaluation: 20:02 - Subjective Subjective: Medicine Progress Note- Dr. Franco's Service Patient was seen and examined at bedside in no acute distress. She reports her abdominal pain is still present. She reports food still aggravates her abdominal pain, but she did have 1/2 of a sandwich. She reports having a loose bowel movement today. Patient states she is walking with no pain or difficulty. Patient denies chest pain, nausea, vomiting, diarrhea, palpitations, and shortness of breath. Objective - Vital Signs/Intake and Output Vital Signs (last 24 hours): Temp Pulse Resp BP Pulse Ox 98.2 F 84 20 124/79 97 05/21/17 15:37 05/21/17 15:37 05/21/17 15:37 05/21/17 15:37 05/21/17 15:37 Intake and Output: 05/21/17 05/22/17 18:59 06:59 Intake Total 350 Balance 350 - Medications Medications: Current Medications Acetaminophen (Tylenol 325mg Tab) 650 mg PO Q6 PRN PRN Reason: Pain, Mild (1-3) Last Admin: 05/18/17 08:42 Dose: 650 mg Aspirin (Ecotrin) 81 mg PO DAILY [facility] Last Admin: 05/21/17 09:14 Dose: 81 mg Docusate Sodium (Colace) 100 mg PO BID [facility] Last Admin: 05/21/17 17:39 Dose: 100 mg Enoxaparin Sodium (Lovenox) 100 mg SC Q12 [facility] Last Admin: 05/21/17 09:13 Dose: 100 mg Hydromorphone HCl (Dilaudid) 1 mg IVP Q3H PRN PRN Reason: Pain, severe (8-10) Last Admin: 05/21/17 18:31 Dose: 1 mg Ceftriaxone Sodium 1 gm/ (Sodium Chloride) 100 mls @ 100 mls/hr IVPB DAILY [facility] Last Admin: 05/21/17 09:14 Dose: 100 mls/hr Losartan Potassium (Cozaar) 25 mg PO DAILY [facility] Last Admin: 05/21/17 09:14 Dose: 25 mg Ondansetron HCl (Zofran Inj) 4 mg IVP Q6 PRN PRN Reason: Nausea/Vomiting Pantoprazole Sodium (Protonix Ec Tab) 40 mg PO DAILY [facility] Last Admin: 05/21/17 09:14 Dose: 40 mg Polyethylene Glycol (Miralax) 17 gm PO BID [facility] Last Admin: 05/21/17 17:40 Dose: Not Given Rosuvastatin Calcium (Crestor) 10 mg PO HS [facility] Last Admin: 05/20/17 22:04 Dose: 10 mg - Labs Labs: 05/21/17 07:08 05/21/17 07:08 PT 13.9 SECONDS (9.7-12.2) H 05/20/17 06:28 INR 1.2 05/20/17 06:28 APTT 37 SECONDS (21-34) H 05/20/17 06:28 - Constitutional Appears: No Acute Distress - Head Exam Head Exam: NORMAL INSPECTION, NORMOCEPHALIC - Eye Exam Eye Exam: EOMI, Normal appearance - ENT Exam ENT Exam: Mucous Membranes Moist - Neck Exam Neck Exam: Normal Inspection - Respiratory Exam Respiratory Exam: Clear to Ausculation Bilateral, NORMAL BREATHING PATTERN. absent: Rhonchi, Wheezes - Cardiovascular Exam Cardiovascular Exam: REGULAR RHYTHM, +S1, +S2. absent: Rubs, Murmur - GI/Abdominal Exam GI & Abdominal Exam: Distended, Tenderness, Normal Bowel Sounds. absent: Soft - Extremities Exam Extremities Exam: absent: Calf Tenderness, Pedal Edema - Neurological Exam Neurological Exam: Alert, Awake, Oriented x3 - Psychiatric Exam Psychiatric exam: Depressed, Normal Affect - Skin Skin Exam: Dry, Intact, Normal Color, Warm Assessment and Plan (1) Pulmonary emboli Assessment & Plan: SOB, chest pain * CTA: 1. Pulmonary emboli. 2. Pulmonary nodules, indeterminate. Metastatic disease not excluded. Followup as clinically warranted. 3. Liver lesions, indeterminate. Metastatic disease not excluded. Followup as clinically warranted. 4. Incidental/non-acute findings are described above. * Echo- normal size; EF 65-70%; LV diastolic function is normal; RV is normal size; RV systolic function is normal; LA size is normal; RA size is normal; MR is mild; TR is mild * Therapeutic Lovenox 100mg SC BID started * ASA 81mg PO daily * Morphine 2mg IV Q3 PRN for pain * Hematology consult- Dr. Watkins, help appreciated * Pulmonology Consult - Dr. Johns, help appreciated * Pending liver biopsy of the left mass liver * Surgical consult, Dr. Dewey, help appreciated. * As per surgery, patient scheduled for IVC filter on saturday * NPO after mn on 05/21/17 * reevaluate thrombus and f/u LE duplex--> DVT of right gastroc. vein and superficial phlebitis of R GSV. * 05/02/17 LE Duplex: right acute thrombus of right gastrocnemius, greater saphenous, and varicose veins with reduction of the venous return. Status: Acute (2) NSTEMI (non-ST elevated myocardial infarction) Assessment & Plan: EKG: NSR @ 90 BPM * EKG- nsr @90 * JANETTE x 3 positive---> 0.512 on admission--->1.0900--->0.965 * Lipid panel: TG 92, Chol 117, LDL 65, HDL 28 * ECHO- EF 65-70%; mild mitral and tricuspid regurgitation * Electronics Teacher consult- Dr. Ulloa, help appreciated * continue current management: Aspirin 81mg PO daily, Cozaar 25 mg PO daily, Crestor 10mg PO daily * Heart Healthy Diet * likely noncardiac elevation of troponins. * Stress Test: negative Status: Acute (3) Lung nodules Assessment & Plan: CTA: Pulmonary nodules, indeterminate. Metastatic disease not excluded. Followup as clinically warranted. 3. Liver lesions, indeterminate. Metastatic disease not excluded. Followup as clinically warranted. * Monitor * Pulmonology consult: Dr. Johns, help appreciated Status: Acute (4) Deep venous thrombosis of lower extremity Assessment & Plan: Diagnosed 04/2017, started on Eliquis currently on 5mg BID - will be held and started on therapeutic lovenox due to PE * Lovenox 100mg sc Q12- restarted [Was Held (05/16/17) for biopsy procedure on 05/17] * Restart lovenox 05/18/17 Surgical consult, Dr. Dewey, help appreciated. * As per surgery, patient scheduled for IVC filter on Saturday * NPO pmn on 05/21/17 * reevaluate thrombus and f/u LE duplex--> DVT of right gastroc. vein and superficial phlebitis of R GSV. * 05/02/17 LE Duplex: right acute thrombus of right gastrocnemius, greater saphenous, and varicose veins with reduction of the venous return. Status: Resolved (5) HTN (hypertension) Assessment & Plan: Cozaar 25mg PO daily Monitor BP Status: Chronic (6) Constipation Assessment & Plan: Miralax : 17gm PO daily Status: Resolved (7) Hyperlipemia Assessment & Plan: Crestor 10mg PO QHS Lipid panel: TG 92, Chol 117, LDL 65, HDL 28 Status: Chronic (8) UTI (urinary tract infection) Assessment & Plan: UA: + LE * Rocephin 1 gm IVP daily * Urine culture- no growth Repeat UA result (05/17/17): yellow hazy, 1+ protein, 1+ LE, 21 WBC, 25 Squam epith cells, Few Bacteria Status: Acute (9) Abdominal pain Assessment & Plan: GI consult, Dr. Cobos, help appreicated Abdominal ultrasound- multiple hepatic masses, suspicious of mets; hepatosplenomegaly, fatty liver, thickened gallbladder wall; CBD: Measures 6mm, no stones and no dilation. Liver 20.1cm; diffuse increase echogenicity of the liver parenchyma, multiple ill-defined hypoechoic masses, largest approximately 3.8cm in greatest dimension; suspicious masses, spleen 13.2cm Ordered by GI: * CT triple phase liver protocol- numberous b/l lower lobe pulmonary nodules; hepatic lesions suspicious for mets, hepatomegaly, mild gallbladder wall thickening/perichoecystic edema; retroperitoneal lymph nodes measuring up to 14mm; diverticulosis * GGT 441 * AFP 3.0 * CEA 199.0 * Negative: Hep A IgM Ab, Hep Bs Antigen, Hep B core IgM Ab, Hep C Ab * Iron studies: Iron 45, TIBC 236, 19% sat, 1060 Ferritin * AST 53 * ALT 36 * ALK Phosphatase: 397 * IgG 840, IgA 195.5, IgM 50.2 * Negative: Anti-mitochondrial Ab, Anti-smooth muscle Ab, * Liver/Kid Mircosomes Ab: pending Liver Bx: as per Dr. Cobos's note, liver biospy showed malignancy, not HCC. Stains will be performed and final results pending; procedure performed on As per GI: may benefit from elective colonoscopy; consider outpatient f/u with GI and Hem/Onc for further workup Status: Acute (10) Liver lesion Assessment & Plan: GI consulted ---> Dr. Cobos * Abdominal ultrasound- multiple hepatic masses, suspicious of mets; hepatosplenomegaly, fatty liver, thickened gallbladder wall; CBD: Measures 6mm, no stones and no dilation. Liver 20.1cm; diffuse increase echogenicity of the liver parenchyma, multiple ill-defined hypoechoic masses, largest approximately 3.8cm in greatest dimension; suspicious masses, spleen 13.2cm * CT: Mildly nodular hepatic contour. Borderline splenomegaly, hepatomegaly. 17mm probable splenule. Sub cm gastohepatic lymph nodes, nonspecific. 10mm probably lymph node, retroperitoneal lymph nodes measuring up to 14mm. * Liver biopsy result: as per Dr. Cobos's note, liver biospy showed malignancy, not HCC. Stains will be performed and final results pending. * As per GI: may benefit from elective colonoscopy; consider outpatient f/u with GI and Hem/Onc for further workup Status: Acute (11) Prophylactic measure Assessment & Plan: GI PPX: Protonix 40mg PO daily DVT PPX: Therapeutic lovenox Status: Acute <Isaiah Franco H - Last Filed: 05/22/17 07:16> Objective - Vital Signs/Intake and Output Vital Signs (last 24 hours): Temp Pulse Resp BP Pulse Ox 98 F 77 20 116/71 20 L 05/21/17 23:50 05/21/17 23:50 05/21/17 23:50 05/21/17 23:50 05/21/17 23:50 - Medications Medications: Current Medications Acetaminophen (Tylenol 325mg Tab) 650 mg PO Q6 PRN PRN Reason: Pain, Mild (1-3) Last Admin: 05/18/17 08:42 Dose: 650 mg Aspirin (Ecotrin) 81 mg PO DAILY [facility] Last Admin: 05/21/17 09:14 Dose: 81 mg Docusate Sodium (Colace) 100 mg PO BID [facility] Last Admin: 05/21/17 17:39 Dose: 100 mg Enoxaparin Sodium (Lovenox) 100 mg SC Q12 [facility] Last Admin: 05/21/17 21:43 Dose: 100 mg Hydromorphone HCl (Dilaudid) 1 mg IVP Q3H PRN PRN Reason: Pain, severe (8-10) Last Admin: 05/21/17 21:42 Dose: 1 mg Ceftriaxone Sodium 1 gm/ (Sodium Chloride) 100 mls @ 100 mls/hr IVPB DAILY [facility] Last Admin: 05/21/17 09:14 Dose: 100 mls/hr Losartan Potassium (Cozaar) 25 mg PO DAILY [facility] Last Admin: 05/21/17 09:14 Dose: 25 mg Ondansetron HCl (Zofran Inj) 4 mg IVP Q6 PRN PRN Reason: Nausea/Vomiting Pantoprazole Sodium (Protonix Ec Tab) 40 mg PO DAILY [facility] Last Admin: 05/21/17 09:14 Dose: 40 mg Polyethylene Glycol (Miralax) 17 gm PO BID [facility] Last Admin: 05/21/17 17:40 Dose: Not Given Rosuvastatin Calcium (Crestor) 10 mg PO HS [facility] Last Admin: 05/21/17 21:43 Dose: 10 mg - Labs Labs: 05/21/17 07:08 05/21/17 07:08 PT 13.9 SECONDS (9.7-12.2) H 05/20/17 06:28 INR 1.2 05/20/17 06:28 APTT 37 SECONDS (21-34) H 05/20/17 06:28 Attending/Attestation - Attestation I have personally seen and examined this patient.: Yes I have fully participated in the care of the patient.: Yes I have reviewed all pertinent clinical information, including history, physical exam and plan: Yes Notes (Text): Medical attending: Patient was seen and examined by me, agrees the above note by director of medical staff services. As documented above the resident note the biopsy of the liver is still on the preliminary stages however we did get word that so far the results suggest that it is not a liver primary malignancy and probably came from somewhere else. Considering the fact that she had a very elevated CEA level , our suspicion is that she probably have colon cancer with metastatic disease to the liver and quite light with the lung as well since she does have pulmonary nodules. I explained this to her and it was a very emotional meeting she asked about potential colonoscopy however explained to her that that has been considered by GI however because of the large pulmonary embolism that she has right now that the colonoscopy probably could not be done in the immediate future but at some point she would need one. Because she really had a DVT in the past and was ordered on Eliquis and despite if this had a pulmonary embolism, we spoke with vascular surgery and she's can be getting IVC filter on Saturday. Hopefully after this will get her back on Eliquis. I also discussed the case with hematology oncology. On exam the patient has some tenderness in the lower quadrants of both the left and right abdomen. She explains to us that she's not short of breath at rest and she does not have any more chest pain at this time Thank you very much, Isaiah Franco
--- NOTE | 2017-05-22 07:19 | CP.PCM.PN ---
<JayShaniqua - Last Filed: 05/22/17 09:02> Subjective - Date & Time of Evaluation Date of Evaluation: 05/22/17 Time of Evaluation: 07:16 - Subjective Subjective: Gastroenterology Fellow/PGY5 Progress Note Patient notes improving abdominal pain since having daily bowel movements for the last two days. Notes loose stool overnight. Tolerating moderate amount of heart healthy diet. A 12-point review of systems negative except for as above. Objective - Vital Signs/Intake and Output Vital Signs (last 24 hours): Temp Pulse Resp BP Pulse Ox 98 F 77 20 116/71 20 L 05/21/17 23:50 05/21/17 23:50 05/21/17 23:50 05/21/17 23:50 05/21/17 23:50 - Medications Medications: Current Medications Acetaminophen (Tylenol 325mg Tab) 650 mg PO Q6 PRN PRN Reason: Pain, Mild (1-3) Last Admin: 05/18/17 08:42 Dose: 650 mg Aspirin (Ecotrin) 81 mg PO DAILY [facility] Last Admin: 05/21/17 09:14 Dose: 81 mg Docusate Sodium (Colace) 100 mg PO BID [facility] Last Admin: 05/21/17 17:39 Dose: 100 mg Enoxaparin Sodium (Lovenox) 100 mg SC Q12 [facility] Last Admin: 05/21/17 21:43 Dose: 100 mg Hydromorphone HCl (Dilaudid) 1 mg IVP Q3H PRN PRN Reason: Pain, severe (8-10) Last Admin: 05/21/17 21:42 Dose: 1 mg Ceftriaxone Sodium 1 gm/ (Sodium Chloride) 100 mls @ 100 mls/hr IVPB DAILY [facility] Last Admin: 05/21/17 09:14 Dose: 100 mls/hr Losartan Potassium (Cozaar) 25 mg PO DAILY [facility] Last Admin: 05/21/17 09:14 Dose: 25 mg Ondansetron HCl (Zofran Inj) 4 mg IVP Q6 PRN PRN Reason: Nausea/Vomiting Pantoprazole Sodium (Protonix Ec Tab) 40 mg PO DAILY [facility] Last Admin: 05/21/17 09:14 Dose: 40 mg Polyethylene Glycol (Miralax) 17 gm PO BID [facility] Last Admin: 05/21/17 17:40 Dose: Not Given Rosuvastatin Calcium (Crestor) 10 mg PO HS [facility] Last Admin: 05/21/17 21:43 Dose: 10 mg - Labs Labs: 05/21/17 07:08 05/21/17 07:08 PT 13.9 SECONDS (9.7-12.2) H 05/20/17 06:28 INR 1.2 05/20/17 06:28 APTT 37 SECONDS (21-34) H 05/20/17 06:28 - Constitutional Appears: Non-toxic, No Acute Distress - Head Exam Head Exam: ATRAUMATIC, NORMOCEPHALIC - Eye Exam Eye Exam: EOMI, PERRL Pupil Exam: PERRL. absent: Miosis, Mydriatic - ENT Exam ENT Exam: Mucous Membranes Moist, Normal Oropharynx - Neck Exam Neck Exam: Full ROM, Normal Inspection - Respiratory Exam Respiratory Exam: Clear to Ausculation Bilateral. absent: Rales, Rhonchi, Wheezes - Cardiovascular Exam Cardiovascular Exam: RRR, +S1, +S2. absent: Gallop, Rubs - GI/Abdominal Exam GI & Abdominal Exam: Soft, Normal Bowel Sounds. absent: Distended, Firm, Guarding, Rigid, Tenderness, Organomegaly, Rebound - Extremities Exam Extremities Exam: Full ROM. absent: Pedal Edema - Neurological Exam Neurological Exam: Alert, Awake - Psychiatric Exam Psychiatric exam: Normal Affect, Normal Mood - Skin Skin Exam: Dry, Intact, Normal Color, Warm Assessment and Plan - Assessment and Plan (Free Text) Assessment: 56 year old female with history of Hypertension, Hyperlipidemia, Alcohol Abuse and recently diagnosed Right lower extremity DVT (05/02/17) on Eliquis presenting with shortness of breath, chest pain, and abdominal pain. 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 Prior colonoscopy three years ago at [facility] endorsed to be normal. Plan: >MELD 9 >liver biopsy (05/17)discussed with pathologist- malignant, not HCC, performing stains, awaiting final diagnosis >CEA 199, possible primary colon malignancy >awaiting [facility] colonoscopy records >continue bowel regimen- decreased Miralax to daily >NPO, IVC filter placement today >supportive care: PPI, pain control >will benefit from elective outpatient colonoscopy >thank you for opportunity to participate in the care of this patient. Please contact with questions or concerns. <Josue Jean - Last Filed: 05/22/17 09:55> Objective - Vital Signs/Intake and Output Vital Signs (last 24 hours): Temp Pulse Resp BP Pulse Ox 98.4 F 76 20 120/68 96 05/22/17 08:49 05/22/17 08:49 05/22/17 08:49 05/22/17 08:49 05/22/17 08:49 - Medications Medications: Current Medications Acetaminophen (Tylenol 325mg Tab) 650 mg PO Q6 PRN PRN Reason: Pain, Mild (1-3) Last Admin: 05/18/17 08:42 Dose: 650 mg Aspirin (Ecotrin) 81 mg PO DAILY [facility] Last Admin: 05/22/17 08:45 Dose: 81 mg Docusate Sodium (Colace) 100 mg PO BID PRN PRN Reason: Constipation Enoxaparin Sodium (Lovenox) 100 mg SC Q12 [facility] Last Admin: 05/21/17 21:43 Dose: 100 mg Hydromorphone HCl (Dilaudid) 1 mg IVP Q3H PRN PRN Reason: Pain, severe (8-10) Last Admin: 05/22/17 08:02 Dose: 1 mg Ceftriaxone Sodium 1 gm/ (Sodium Chloride) 100 mls @ 100 mls/hr IVPB DAILY [facility] Last Admin: 05/21/17 09:14 Dose: 100 mls/hr Potassium Chloride (Potassium Chloride 20 Meq/100 Ml) 20 meq in 100 mls @ 50 mls/hr IVPB ONCE ONE Stop: 05/22/17 11:14 Losartan Potassium (Cozaar) 25 mg PO DAILY [facility] Last Admin: 05/22/17 08:44 Dose: 25 mg Ondansetron HCl (Zofran Inj) 4 mg IVP Q6 PRN PRN Reason: Nausea/Vomiting Pantoprazole Sodium (Protonix Ec Tab) 40 mg PO DAILY [facility] Last Admin: 05/21/17 09:14 Dose: 40 mg Polyethylene Glycol (Miralax) 17 gm PO DAILY [facility] Rosuvastatin Calcium (Crestor) 10 mg PO HS [facility] Last Admin: 05/21/17 21:43 Dose: 10 mg Simethicone (Mylicon Liq) 40 mg PO QID [facility] - Labs Labs: 05/22/17 07:19 05/22/17 07:19 PT 13.9 SECONDS (9.7-12.2) H 05/20/17 06:28 INR 1.2 05/20/17 06:28 APTT 37 SECONDS (21-34) H 05/20/17 06:28 Attending/Attestation - Attestation I have personally seen and examined this patient.: Yes I have fully participated in the care of the patient.: Yes I have reviewed all pertinent clinical information, including history, physical exam and plan: Yes Notes (Text): 05/22/17 09:53 56 year old female with history of HTN, HLD, DVT on eliquis admitted with CP/SOB kymberly to have PE, NSTEMI, we are evalauting for chronic abdominal pain, found to have multiple liver lesions worrisome for metastatic disease of unknown primary. 1. Abdominal pain 2. Liver metastases 3. Elevated LFTs 4. Constipation Plan: -s/p IR guided biopsy, still awaiting final path -oncology following -on anticoagulation for PE -she is getting an IVC fileter -continue PPI / miralax for abdominal pain and constipation -supportive care -will sign off at this time, please call us with questions, we will follow up on pathology
--- NOTE | 2017-05-22 07:21 | CP.PCM.PN ---
<Lynda Bansal - Last Filed: 05/22/17 19:44> Subjective - Date & Time of Evaluation Date of Evaluation: 05/22/17 Time of Evaluation: 07:19 - Subjective Subjective: Medicine Progress Note- Dr. Franco's Service Patient was seen and examined at bedside in no acute distress. Patient was feeling better today with less abdominal pain. She reports feeling like she has a lot of gas in her right abdomen. Patient reports eating last night which resulted with abdominal pain. She also has had two loose bowel movements. Patient is walking without difficulty. Patient denies chest pain, palpitations, shortness of breath, nausea, vomiting and constipation. Objective - Vital Signs/Intake and Output Vital Signs (last 24 hours): Temp Pulse Resp BP Pulse Ox 98 F 77 20 116/71 20 L 05/21/17 23:50 05/21/17 23:50 05/21/17 23:50 05/21/17 23:50 05/21/17 23:50 - Medications Medications: Current Medications Acetaminophen (Tylenol 325mg Tab) 650 mg PO Q6 PRN PRN Reason: Pain, Mild (1-3) Last Admin: 05/18/17 08:42 Dose: 650 mg Aspirin (Ecotrin) 81 mg PO DAILY [facility] Last Admin: 05/21/17 09:14 Dose: 81 mg Docusate Sodium (Colace) 100 mg PO BID [facility] Last Admin: 05/21/17 17:39 Dose: 100 mg Enoxaparin Sodium (Lovenox) 100 mg SC Q12 [facility] Last Admin: 05/21/17 21:43 Dose: 100 mg Hydromorphone HCl (Dilaudid) 1 mg IVP Q3H PRN PRN Reason: Pain, severe (8-10) Last Admin: 05/21/17 21:42 Dose: 1 mg Ceftriaxone Sodium 1 gm/ (Sodium Chloride) 100 mls @ 100 mls/hr IVPB DAILY [facility] Last Admin: 05/21/17 09:14 Dose: 100 mls/hr Losartan Potassium (Cozaar) 25 mg PO DAILY [facility] Last Admin: 05/21/17 09:14 Dose: 25 mg Ondansetron HCl (Zofran Inj) 4 mg IVP Q6 PRN PRN Reason: Nausea/Vomiting Pantoprazole Sodium (Protonix Ec Tab) 40 mg PO DAILY [facility] Last Admin: 05/21/17 09:14 Dose: 40 mg Polyethylene Glycol (Miralax) 17 gm PO BID [facility] Last Admin: 05/21/17 17:40 Dose: Not Given Rosuvastatin Calcium (Crestor) 10 mg PO HS [facility] Last Admin: 05/21/17 21:43 Dose: 10 mg - Labs Labs: 05/21/17 07:08 05/21/17 07:08 PT 13.9 SECONDS (9.7-12.2) H 05/20/17 06:28 INR 1.2 05/20/17 06:28 APTT 37 SECONDS (21-34) H 05/20/17 06:28 - Constitutional Appears: No Acute Distress - Head Exam Head Exam: NORMAL INSPECTION, NORMOCEPHALIC - Eye Exam Eye Exam: EOMI, Normal appearance - ENT Exam ENT Exam: Mucous Membranes Moist - Neck Exam Neck Exam: Full ROM, Normal Inspection - Respiratory Exam Respiratory Exam: Clear to Ausculation Bilateral, NORMAL BREATHING PATTERN. absent: Rhonchi, Wheezes - Cardiovascular Exam Cardiovascular Exam: REGULAR RHYTHM, +S1, +S2. absent: Murmur - GI/Abdominal Exam GI & Abdominal Exam: Distended, Tenderness (with palpation of epigastric region) , Normal Bowel Sounds - Extremities Exam Extremities Exam: Normal Inspection. absent: Pedal Edema, Tenderness - Neurological Exam Neurological Exam: Alert, Awake, Oriented x3 - Psychiatric Exam Psychiatric exam: Normal Affect, Normal Mood - Skin Skin Exam: Dry, Intact, Normal Color, Warm Assessment and Plan (1) Pulmonary emboli Assessment & Plan: SOB, chest pain * CTA: 1. Pulmonary emboli. 2. Pulmonary nodules, indeterminate. Metastatic disease not excluded. Followup as clinically warranted. 3. Liver lesions, indeterminate. Metastatic disease not excluded. Followup as clinically warranted. 4. Incidental/non-acute findings are described above. * Echo- normal size; EF 65-70%; LV diastolic function is normal; RV is normal size; RV systolic function is normal; LA size is normal; RA size is normal; MR is mild; TR is mild * Therapeutic Lovenox 100mg SC BID started--> discontinued 05/22/17 * Heparin Drip- started 05/22/17 * ASA 81mg PO daily * Morphine 2mg IV Q3 PRN for pain * Hematology consult- Dr. Watkins, help appreciated * Pulmonology Consult - Dr. Johns, help appreciated * Pending liver biopsy of the left mass liver * Surgical consult, Dr. Dewey, help appreciated. * IVC filter placed on 05/22/17 * reevaluate thrombus and f/u LE duplex--> DVT of right gastroc. vein and superficial phlebitis of R GSV. * 05/02/17 LE Duplex: right acute thrombus of right gastrocnemius, greater saphenous, and varicose veins with reduction of the venous return. Status: Acute (2) NSTEMI (non-ST elevated myocardial infarction) Assessment & Plan: EKG: NSR @ 90 BPM * EKG- nsr @90 * JANETTE x 3 positive---> 0.512 on admission--->1.0900--->0.965 * Lipid panel: TG 92, Chol 117, LDL 65, HDL 28 * ECHO- EF 65-70%; mild mitral and tricuspid regurgitation * Pharmacy Student consult- Dr. Ulloa, help appreciated * continue current management: Aspirin 81mg PO daily, Cozaar 25 mg PO daily, Crestor 10mg PO daily * Heart Healthy Diet * likely noncardiac elevation of troponins. * Stress Test: negative Status: Acute (3) Lung nodules Assessment & Plan: CTA: Pulmonary nodules, indeterminate. Metastatic disease not excluded. Followup as clinically warranted. 3. Liver lesions, indeterminate. Metastatic disease not excluded. Followup as clinically warranted. * Monitor * Pulmonology consult: Dr. Johns, help appreciated Status: Acute (4) Deep venous thrombosis of lower extremity Assessment & Plan: Diagnosed 04/2017, started on Eliquis currently on 5mg BID - will be held and started on therapeutic lovenox due to PE * Lovenox 100mg sc Q12- restarted [Was Held (05/16/17) for biopsy procedure on 05/17] * Restart lovenox 05/18/17-->discontinued 05/22/17 * Heparin Drip- started 05/22/17 Surgical consult, Dr. Dewey, help appreciated. * As per surgery, patient received IVC filter on 05/22/17 * reevaluate thrombus and f/u LE duplex--> DVT of right gastroc. vein and superficial phlebitis of R GSV. * 05/02/17 LE Duplex: right acute thrombus of right gastrocnemius, greater saphenous, and varicose veins with reduction of the venous return. Status: Resolved (5) HTN (hypertension) Assessment & Plan: Cozaar 25mg PO daily Monitor BP Status: Chronic (6) Constipation Assessment & Plan: Miralax : 17gm PO daily Status: Resolved (7) Hyperlipemia Assessment & Plan: Crestor 10mg PO QHS Lipid panel: TG 92, Chol 117, LDL 65, HDL 28 Status: Chronic (8) UTI (urinary tract infection) Assessment & Plan: UA: + LE * Rocephin 1 gm IVP daily * Urine culture- no growth Repeat UA result (05/17/17): yellow hazy, 1+ protein, 1+ LE, 21 WBC, 25 Squam epith cells, Few Bacteria Status: Acute (9) Abdominal pain Assessment & Plan: GI consult, Dr. Cobos, help appreicated Abdominal ultrasound- multiple hepatic masses, suspicious of mets; hepatosplenomegaly, fatty liver, thickened gallbladder wall; CBD: Measures 6mm, no stones and no dilation. Liver 20.1cm; diffuse increase echogenicity of the liver parenchyma, multiple ill-defined hypoechoic masses, largest approximately 3.8cm in greatest dimension; suspicious masses, spleen 13.2cm Ordered by GI: * CT triple phase liver protocol- numberous b/l lower lobe pulmonary nodules; hepatic lesions suspicious for mets, hepatomegaly, mild gallbladder wall thickening/perichoecystic edema; retroperitoneal lymph nodes measuring up to 14mm; diverticulosis * GGT 441 * AFP 3.0 * CEA 199.0 * Negative: Hep A IgM Ab, Hep Bs Antigen, Hep B core IgM Ab, Hep C Ab * Iron studies: Iron 45, TIBC 236, 19% sat, 1060 Ferritin * AST 53 * ALT 36 * ALK Phosphatase: 397 * IgG 840, IgA 195.5, IgM 50.2 * Negative: Anti-mitochondrial Ab, Anti-smooth muscle Ab, * Liver/Kid Mircosomes Ab: pending * Ca 19-9: >5000 Liver Bx: as per Dr. Cobos's note, liver biospy showed malignancy, not HCC. Stains will be performed and final results pending; procedure performed on As per GI: may benefit from elective colonoscopy; consider outpatient f/u with GI and Hem/Onc for further workup * As per GI, Surgery and Cardiology has given clearance to perform EDG and colonoscopy scheduled for Saturday. * Stopped Lovenox on 05/22/17 * Started Heparin drip 05/22/17 Status: Acute (10) Liver lesion Assessment & Plan: GI consulted ---> Dr. Cobos * Abdominal ultrasound- multiple hepatic masses, suspicious of mets; hepatosplenomegaly, fatty liver, thickened gallbladder wall; CBD: Measures 6mm, no stones and no dilation. Liver 20.1cm; diffuse increase echogenicity of the liver parenchyma, multiple ill-defined hypoechoic masses, largest approximately 3.8cm in greatest dimension; suspicious masses, spleen 13.2cm * CT: Mildly nodular hepatic contour. Borderline splenomegaly, hepatomegaly. 17mm probable splenule. Sub cm gastohepatic lymph nodes, nonspecific. 10mm probably lymph node, retroperitoneal lymph nodes measuring up to 14mm. * Liver biopsy result: as per Dr. Cobos's note, liver biospy showed malignancy, not HCC. Stains will be performed and final results pending. * As per GI: may benefit from elective colonoscopy; consider outpatient f/u with GI and Hem/Onc for further workup * As per GI, Surgery and Cardiology has given clearance to perform EDG and colonoscopy scheduled for Saturday. * Stopped Lovenox on 05/22/17 * Started Heparin drip 05/22/17 Status: Acute (11) Prophylactic measure Assessment & Plan: GI PPX: Protonix 40mg PO daily DVT PPX: Therapeutic lovenox--> discontinued; started Heparin drip on 05/22/17 for pending EDG and colonoscopy scheduled for Saturday. Status: Acute <Isaiah Franco - Last Filed: 05/23/17 09:17> Objective - Vital Signs/Intake and Output Vital Signs (last 24 hours): Temp Pulse Resp BP Pulse Ox 98.0 F 80 20 117/64 96 05/23/17 08:49 05/23/17 08:49 05/23/17 08:49 05/23/17 08:49 05/23/17 08:49 Intake and Output: 05/23/17 05/23/17 06:59 18:59 Intake Total 900 Balance 900 - Medications Medications: Current Medications Acetaminophen (Tylenol 325mg Tab) 650 mg PO Q6 PRN PRN Reason: Pain, Mild (1-3) Last Admin: 05/18/17 08:42 Dose: 650 mg Aspirin (Ecotrin) 81 mg PO DAILY [facility] Last Admin: 05/22/17 13:42 Dose: Not Given Bisacodyl (Dulcolax) 10 mg PO ONCE ONE Stop: 05/23/17 19:01 Hydromorphone HCl (Dilaudid) 1 mg IVP Q3H PRN PRN Reason: Pain, severe (8-10) Last Admin: 05/23/17 07:11 Dose: 1 mg Ceftriaxone Sodium 1 gm/ (Sodium Chloride) 100 mls @ 100 mls/hr IVPB DAILY [facility] Last Admin: 05/22/17 13:51 Dose: 100 mls/hr Lactated Ringer's (Lactated Ringer's) 1,000 mls @ 100 mls/hr IV .Q10H [facility] Last Admin: 05/23/17 01:15 Dose: 100 mls/hr Heparin Sodium/Sodium Chloride (Heparin 96985 Units/250ml 1/2 Normal Saline) 25 ,000 units in 250 mls @ 11.975 mls/hr IV .[id number] PRN; Protocol; 12 UNITS/KG/HR PRN Reason: PROTOCOL Last Admin: 05/23/17 03:07 Dose: 12 units/kg/hr, 11.975 mls/hr Losartan Potassium (Cozaar) 25 mg PO DAILY [facility] Last Admin: 05/22/17 13:42 Dose: Not Given Ondansetron HCl (Zofran Inj) 4 mg IVP Q6 PRN PRN Reason: Nausea/Vomiting Pantoprazole Sodium (Protonix Ec Tab) 40 mg PO DAILY [facility] Last Admin: 05/22/17 13:51 Dose: 40 mg Polyethylene Glycol/Electrolytes (Golytely) 4,000 ml PO ONCE ONE Stop: 05/23/17 13:01 Potassium Chloride (K-Dur 20 Meq Er Tab) 20 meq PO DAILY [facility] Last Admin: 05/22/17 14:55 Dose: 20 meq Rosuvastatin Calcium (Crestor) 10 mg PO HS [facility] Last Admin: 05/22/17 22:21 Dose: 10 mg Simethicone (Mylicon Chew Tab) 80 mg PO QID [facility] Last Admin: 05/22/17 22:21 Dose: 80 mg - Labs Labs: 05/23/17 07:24 05/23/17 07:24 PT 13.9 SECONDS (9.7-12.2) H 05/20/17 06:28 INR 1.2 05/20/17 06:28 APTT 37 SECONDS (21-34) H D 05/23/17 02:04 Attending/Attestation - Attestation I have personally seen and examined this patient.: Yes I have fully participated in the care of the patient.: Yes I have reviewed all pertinent clinical information, including history, physical exam and plan: Yes Notes (Text): Medical Attending: Patient was seen and examined by me. Agree with the above note by the resident. The patient was changed from lovenox over to a heparin ggt for a potential EGD and colonscopy this comming Saturday. I will go back and explain to her - as she previously thought she could not get a colonscopy. Also holding ASA for now Also of note, the patient didn't feel comfortable telling her family members about the situation herself, but she did allow medical staff to tell family about the situation. She did not report shortness of breath or chest pain. But she still has abdominal pain and discomfort thank you Isaiah Franco
[2017-05-22 07:45] LABS: BASO # 0.1 K/uL (0.0-0.2); BASO % 0.7 % (0.0-2.0); EOS # 0.3 K/uL (0.0-0.7); EOS % 4.1 % (0.0-4.0); HEMOGLOBIN 10.5 g/dL (11.0-16.0); LYMPH # 0.9 K/uL (1.0-4.3); LYMPH % 12.2 % (20.0-40.0); MEAN CELL VOLUME 88.5 fL (81.0-99.0); MEAN CORPUSCULAR HEMOGLOBIN 29.8 pg (27.0-31.0); MEAN CORPUSCULAR HGB CONC 33.6 g/dL (33.0-37.0); MEAN PLATELET VOLUME 8.9 fL (7.2-11.7); MONO # 0.9 K/uL (0.0-0.8); MONO % 11.5 % (0.0-10.0); NEUT # 5.5 K/uL (1.8-7.0); NEUT % 71.5 % (50.0-75.0); RBC 3.51 Mil/uL (3.80-5.20); RED CELL DISTRIBUTION WIDTH 13.4 % (11.5-14.5); WHITE BLOOD COUNT 7.7 K/uL (4.8-10.8)
[2017-05-22] MEDS: HYDROmorphone 1 mg/ml ISec IVP PRN ×4 (08:02→21:03)
[2017-05-22 08:04] LABS: ALBUMIN 3.1 g/dL (3.5-5.0)
[2017-05-22 08:07] LABS: ALT/SGPT 45 U/L (9-52); AST/SGOT 61 U/L (14-36); BLOOD UREA NITROGEN 7 mg/dL (7-17); CALCIUM 8.9 mg/dl (8.6-10.4); GFR AFRICAN-AMERICAN > 60; GFR NON-AFRICAN AMERICAN > 60; MAGNESIUM 2.2 mg/dL (1.6-2.3)
[2017-05-22] MEDS ORDERED: Potassium Chloride 20 mEq ER Tab PO ONE (09:07)
[2017-05-22] MEDS ORDERED: HEPARIN-NS 5,000 UNITS/500 ML 5,000 UNIT/500 ML BAG IV ONE (09:53)
[2017-05-22] MEDS ORDERED: ceFAZolin IV 1 gm in Dextrose 0 GM/0 ML BAG IVPB ONE (09:53)
[2017-05-22] MEDS ORDERED: Iodixanol 320 MG/ML 200 ML BOTTLE IV ONE (09:54)
[2017-05-22] MEDS ORDERED: POLYETHYLENE GLYCOL 3350 17 GM/Dose PACKET PO SCH (10:00)
[2017-05-22] MEDS ORDERED: Simethicone 40 mg/0.6 ml Liquid (30 ml) PO SCH (10:00)
[2017-05-22] MEDS ORDERED: Lactated Ringer's 1,000 ML IV ONE (10:40)
[2017-05-22] MEDS ORDERED: ceFAZolin IV 1 gm in Dextrose 2 GM/100 ML BAG IVPB ONE (10:59)
[2017-05-22] MEDS ORDERED: Midazolam 2 MG/2 ML VIAL ONE (11:00)
--- NOTE | 2017-05-22 11:41 | PCM.SURG1 ---
Surgeon's Initial Post Op Note - Surgeon's Notes Surgeon: Noé Dewey MD Manager Flight Operations: Elisabeth Youssef PGY1; Eros Dominguez Type of Anesthesia: IV Sedation Pre-Operative Diagnosis: Venous Thrombosis Operative Findings: See op report Post-Operative Diagnosis: Venous thrombosis Operation Performed: IVC filter placement Specimen/Specimens Removed: none Estimated Blood Loss: EBL {In ML}: 10 Blood Products Given: N/A Drains Used: No Drains Post-Op Condition: Good Date of Surgery/Procedure: 05/22/17 Time of Surgery/Procedure: 11:20
[2017-05-22] MEDS ORDERED: HYDROmorphone 0.5 mg/0.5 ml ISec IVP PRN (12:06)
[2017-05-22] MEDS: Enoxaparin 100 mg Syringe SC SCH (12:16)
[2017-05-22] MEDS: Pantoprazole 40 mg EC Tab PO SCH ×2 (12:17→13:51)
--- NOTE | 2017-05-22 13:09 | CP.PCM.PN ---
Subjective - Date & Time of Evaluation Date of Evaluation: 05/21/17 Time of Evaluation: 15:00 - Subjective Subjective: Has abdominal bloating Objective - Vital Signs/Intake and Output Vital Signs (last 24 hours): Temp Pulse Resp BP Pulse Ox 97.8 F 74 20 114/64 98 05/22/17 12:30 05/22/17 12:30 05/22/17 12:30 05/22/17 12:30 05/22/17 12:30 - Medications Medications: Current Medications Acetaminophen (Tylenol 325mg Tab) 650 mg PO Q6 PRN PRN Reason: Pain, Mild (1-3) Last Admin: 05/18/17 08:42 Dose: 650 mg Aspirin (Ecotrin) 81 mg PO DAILY [facility] Last Admin: 05/22/17 08:45 Dose: 81 mg Docusate Sodium (Colace) 100 mg PO BID PRN PRN Reason: Constipation Enoxaparin Sodium (Lovenox) 100 mg SC Q12 [facility] Last Admin: 05/22/17 12:16 Dose: Not Given Hydromorphone HCl (Dilaudid) 1 mg IVP Q3H PRN PRN Reason: Pain, severe (8-10) Last Admin: 05/22/17 08:02 Dose: 1 mg Ceftriaxone Sodium 1 gm/ (Sodium Chloride) 100 mls @ 100 mls/hr IVPB DAILY [facility] Last Admin: 05/22/17 12:17 Dose: Not Given Lactated Ringer's (Lactated Ringer's) 1,000 mls @ 150 mls/hr IV .Q6H40M [facility] Losartan Potassium (Cozaar) 25 mg PO DAILY [facility] Last Admin: 05/22/17 08:44 Dose: 25 mg Ondansetron HCl (Zofran Inj) 4 mg IVP Q6 PRN PRN Reason: Nausea/Vomiting Ondansetron HCl (Zofran Inj) 4 mg IVP ONCE PRN PRN Reason: Nausea/Vomiting Stop: 05/22/17 13:42 Pantoprazole Sodium (Protonix Ec Tab) 40 mg PO DAILY [facility] Last Admin: 05/22/17 12:17 Dose: Not Given Polyethylene Glycol (Miralax) 17 gm PO DAILY [facility] Last Admin: 05/22/17 09:55 Dose: Not Given Rosuvastatin Calcium (Crestor) 10 mg PO HS [facility] Last Admin: 05/21/17 21:43 Dose: 10 mg Simethicone (Mylicon Liq) 40 mg PO QID [facility] Last Admin: 05/22/17 12:57 Dose: Not Given - Labs Labs: 05/22/17 07:19 05/22/17 07:19 PT 13.9 SECONDS (9.7-12.2) H 05/20/17 06:28 INR 1.2 05/20/17 06:28 APTT 37 SECONDS (21-34) H 05/20/17 06:28 - Head Exam Head Exam: ATRAUMATIC - Eye Exam Eye Exam: Normal appearance - ENT Exam ENT Exam: Mucous Membranes Dry - Respiratory Exam Respiratory Exam: NORMAL BREATHING PATTERN - Cardiovascular Exam Cardiovascular Exam: +S1, +S2 - GI/Abdominal Exam GI & Abdominal Exam: Normal Bowel Sounds - Extremities Exam Extremities Exam: Normal Inspection Assessment and Plan (1) Pulmonary emboli Assessment & Plan: on therapeutic anticoagulation for IVC filter given DVT Status: Acute (2) Lesion of lung Assessment & Plan: ?metastatic disease Status: Acute (3) Liver lesion Assessment & Plan: prelim path appears malignancy; f/u official results Status: Acute (4) Anemia Assessment & Plan: chronic disease Status: Acute (5) Coagulopathy Assessment & Plan: anticoagulation Status: Acute (6) Tobacco abuse Assessment & Plan: smoking cessation Status: Acute
--- NOTE | 2017-05-22 13:12 | CP.PCM.PN ---
Subjective - Date & Time of Evaluation Date of Evaluation: 05/22/17 Time of Evaluation: 12:40 - Subjective Subjective: Has abdominal bloating Objective - Vital Signs/Intake and Output Vital Signs (last 24 hours): Temp Pulse Resp BP Pulse Ox 97.8 F 74 20 114/64 98 05/22/17 12:30 05/22/17 12:30 05/22/17 12:30 05/22/17 12:30 05/22/17 12:30 - Medications Medications: Current Medications Acetaminophen (Tylenol 325mg Tab) 650 mg PO Q6 PRN PRN Reason: Pain, Mild (1-3) Last Admin: 05/18/17 08:42 Dose: 650 mg Aspirin (Ecotrin) 81 mg PO DAILY [facility] Last Admin: 05/22/17 08:45 Dose: 81 mg Docusate Sodium (Colace) 100 mg PO BID PRN PRN Reason: Constipation Enoxaparin Sodium (Lovenox) 100 mg SC Q12 [facility] Last Admin: 05/22/17 12:16 Dose: Not Given Hydromorphone HCl (Dilaudid) 1 mg IVP Q3H PRN PRN Reason: Pain, severe (8-10) Last Admin: 05/22/17 08:02 Dose: 1 mg Ceftriaxone Sodium 1 gm/ (Sodium Chloride) 100 mls @ 100 mls/hr IVPB DAILY [facility] Last Admin: 05/22/17 12:17 Dose: Not Given Lactated Ringer's (Lactated Ringer's) 1,000 mls @ 150 mls/hr IV .Q6H40M [facility] Losartan Potassium (Cozaar) 25 mg PO DAILY [facility] Last Admin: 05/22/17 08:44 Dose: 25 mg Ondansetron HCl (Zofran Inj) 4 mg IVP Q6 PRN PRN Reason: Nausea/Vomiting Ondansetron HCl (Zofran Inj) 4 mg IVP ONCE PRN PRN Reason: Nausea/Vomiting Stop: 05/22/17 13:42 Pantoprazole Sodium (Protonix Ec Tab) 40 mg PO DAILY [facility] Last Admin: 05/22/17 12:17 Dose: Not Given Polyethylene Glycol (Miralax) 17 gm PO DAILY [facility] Last Admin: 05/22/17 09:55 Dose: Not Given Rosuvastatin Calcium (Crestor) 10 mg PO HS [facility] Last Admin: 05/21/17 21:43 Dose: 10 mg Simethicone (Mylicon Liq) 40 mg PO QID [facility] Last Admin: 05/22/17 12:57 Dose: Not Given - Labs Labs: 05/22/17 07:19 05/22/17 07:19 PT 13.9 SECONDS (9.7-12.2) H 05/20/17 06:28 INR 1.2 05/20/17 06:28 APTT 37 SECONDS (21-34) H 05/20/17 06:28 - Head Exam Head Exam: ATRAUMATIC - Eye Exam Eye Exam: Normal appearance - ENT Exam ENT Exam: Mucous Membranes Dry - Respiratory Exam Respiratory Exam: NORMAL BREATHING PATTERN - Cardiovascular Exam Cardiovascular Exam: +S1, +S2 - GI/Abdominal Exam GI & Abdominal Exam: Normal Bowel Sounds - Extremities Exam Extremities Exam: Normal Inspection Assessment and Plan (1) Pulmonary emboli Assessment & Plan: provoked from likely underlying malignancy therapeutic anticoagulation s/p IVC filter Status: Acute (2) Lesion of lung Assessment & Plan: ?metastic disease Status: Acute (3) Liver lesion Assessment & Plan: prelim path shows malignancy; awaiting official path report Status: Acute (4) Anemia Assessment & Plan: chronic disease Status: Acute (5) Coagulopathy Assessment & Plan: anticoagulation Status: Acute (6) Tobacco abuse Assessment & Plan: smoking cessation Status: Acute
--- NOTE | 2017-05-22 13:26 | CP.PCM.PN ---
Subjective - Date & Time of Evaluation Date of Evaluation: 05/22/17 Time of Evaluation: 13:30 - Subjective Subjective: Cardiology Progress note for Dr. Ulloa Cardiology reconsulted as patient needs cardiac clearance for EGD and Colonoscopy Patient seen and examined at beside. POD#0 IVC filter placement. Patient reports feeling better this AM and reports her abdominal pain has improved. She denied any headache, dizziness, chest pain, palpitations, SOB, cough, nausea, vomiting, bowel/bladder complaints. Objective - Vital Signs/Intake and Output Vital Signs (last 24 hours): Temp Pulse Resp BP Pulse Ox 97.8 F 74 20 114/64 98 05/22/17 12:30 05/22/17 12:30 05/22/17 12:30 05/22/17 12:30 05/22/17 12:30 Intake and Output: 05/22/17 05/22/17 06:59 18:59 Intake Total 100 Balance 100 - Medications Medications: Current Medications Acetaminophen (Tylenol 325mg Tab) 650 mg PO Q6 PRN PRN Reason: Pain, Mild (1-3) Last Admin: 05/18/17 08:42 Dose: 650 mg Aspirin (Ecotrin) 81 mg PO DAILY [facility] Last Admin: 05/22/17 08:45 Dose: 81 mg Docusate Sodium (Colace) 100 mg PO BID PRN PRN Reason: Constipation Enoxaparin Sodium (Lovenox) 100 mg SC Q12 [facility] Last Admin: 05/22/17 12:16 Dose: Not Given Hydromorphone HCl (Dilaudid) 1 mg IVP Q3H PRN PRN Reason: Pain, severe (8-10) Last Admin: 05/22/17 08:02 Dose: 1 mg Ceftriaxone Sodium 1 gm/ (Sodium Chloride) 100 mls @ 100 mls/hr IVPB DAILY [facility] Last Admin: 05/22/17 12:17 Dose: Not Given Lactated Ringer's (Lactated Ringer's) 1,000 mls @ 150 mls/hr IV .Q6H40M [facility] Losartan Potassium (Cozaar) 25 mg PO DAILY [facility] Last Admin: 05/22/17 08:44 Dose: 25 mg Ondansetron HCl (Zofran Inj) 4 mg IVP Q6 PRN PRN Reason: Nausea/Vomiting Ondansetron HCl (Zofran Inj) 4 mg IVP ONCE PRN PRN Reason: Nausea/Vomiting Stop: 05/22/17 13:42 Pantoprazole Sodium (Protonix Ec Tab) 40 mg PO DAILY [facility] Last Admin: 05/22/17 12:17 Dose: Not Given Polyethylene Glycol (Miralax) 17 gm PO DAILY [facility] Last Admin: 05/22/17 09:55 Dose: Not Given Rosuvastatin Calcium (Crestor) 10 mg PO HS [facility] Last Admin: 05/21/17 21:43 Dose: 10 mg Simethicone (Mylicon Chew Tab) 80 mg PO QID [facility] - Labs Labs: 05/22/17 07:19 05/22/17 07:19 PT 13.9 SECONDS (9.7-12.2) H 05/20/17 06:28 INR 1.2 05/20/17 06:28 APTT 37 SECONDS (21-34) H 05/20/17 06:28 - Constitutional Appears: Non-toxic, No Acute Distress - Head Exam Head Exam: NORMOCEPHALIC - Eye Exam Eye Exam: Normal appearance. absent: Conjunctival injection, Scleral icterus Pupil Exam: NORMAL ACCOMODATION - ENT Exam ENT Exam: Mucous Membranes Moist - Neck Exam Neck Exam: Full ROM, Normal Inspection - Respiratory Exam Respiratory Exam: Clear to Ausculation Bilateral, NORMAL BREATHING PATTERN. absent: Accessory Muscle Use, Rales, Rhonchi, Wheezes, Respiratory Distress - Cardiovascular Exam Cardiovascular Exam: REGULAR RHYTHM, RRR, +S1, +S2. absent: Murmur - GI/Abdominal Exam GI & Abdominal Exam: Soft, Tenderness (R sided to palpation), Normal Bowel Sounds - Extremities Exam Extremities Exam: Normal Capillary Refill, Normal Inspection. absent: Pedal Edema, Tenderness - Neurological Exam Neurological Exam: Alert, Awake, Oriented x3 - Psychiatric Exam Psychiatric exam: Normal Affect, Normal Mood - Skin Skin Exam: Dry, Intact, Normal Color, Warm Assessment and Plan - Assessment and Plan (Free Text) Assessment: 56 year old female PMHx HTN, HLD, RLE DVT on eliquis (04/2017) presented on 05/14 with chest pain, headache, and SOB for 1 day. Cardiology was originally consulted for NSTEMI and reconsulted for cardiacclearance for GI procedures Plan: -POD#0 IVC filter placement -Echo: normal size; EF 65-70%; LV diastolic function is normal; RV is normal size; RV systolic function is normal; LA size is normal; RA size is normal; MR is mild; TR is mild -Elevated troponins 0.512 on admission -> 1.0900 -> 0.965 likely noncardiac elevation of enzymes -No acute ST elevations on EKG -Exercise stress test 05/17 was negative -Lipid panel T Cholesterol: 117 LDL: 65 HDL: 28 -Lovenox 100mg sc q12 -ASA 81mg po daily -Lovenox 100mg sc q12 -Cozaar 25mg po daily -Crestor 10mg po hs -Patient may proceed for low to moderate risk procedure in lieu of normal Echo and normal stress as benefits outweigh risks Case discussed with Dr. Laila Overton PGY2
[2017-05-22] MEDS: Simethicone 80 mg Chewtab PO SCH ×3 (14:27→22:21)
[2017-05-22] MEDS: Lactated Ringer's 1,000 ML IV SCH ×2 (14:29→19:01)
[2017-05-22] MEDS: Potassium Chloride 20 mEq ER Tab PO SCH (14:55)
--- NOTE | 2017-05-22 16:11 | RAD ---
PROCEDURE: Intraoperative Fluoroscopy. HISTORY: DVT. IVC filter. FINDINGS: Fluoroscopic assistance was provided. Approximately 135.9 seconds of fluoroscopy time utilized for this procedure. Radiation dose = 56 mGy.
--- NOTE | 2017-05-22 16:30 | CP.PCM.PN ---
Subjective - Date & Time of Evaluation Date of Evaluation: 05/22/17 Time of Evaluation: 10:30 - Subjective Subjective: Patient seen and examined. Lying comfortably in no acute distress Status post IVC filter placement Denies shortness of breath, denies chest pain On anticoagulation for pulmonary embolism and DVT Objective - Vital Signs/Intake and Output Vital Signs (last 24 hours): Temp Pulse Resp BP Pulse Ox 97.9 F 80 20 115/74 100 05/22/17 15:15 05/22/17 15:15 05/22/17 15:15 05/22/17 15:15 05/22/17 15:15 Intake and Output: 05/22/17 05/22/17 06:59 18:59 Intake Total 220 Balance 220 - Medications Medications: Current Medications Acetaminophen (Tylenol 325mg Tab) 650 mg PO Q6 PRN PRN Reason: Pain, Mild (1-3) Last Admin: 05/18/17 08:42 Dose: 650 mg Aspirin (Ecotrin) 81 mg PO DAILY [facility] Last Admin: 05/22/17 13:42 Dose: Not Given Bisacodyl (Dulcolax) 10 mg PO ONCE ONE Stop: 05/23/17 19:01 Enoxaparin Sodium (Lovenox) 100 mg SC Q12 [facility] Last Admin: 05/22/17 12:16 Dose: Not Given Hydromorphone HCl (Dilaudid) 1 mg IVP Q3H PRN PRN Reason: Pain, severe (8-10) Last Admin: 05/22/17 13:58 Dose: 1 mg Ceftriaxone Sodium 1 gm/ (Sodium Chloride) 100 mls @ 100 mls/hr IVPB DAILY [facility] Last Admin: 05/22/17 13:51 Dose: 100 mls/hr Lactated Ringer's (Lactated Ringer's) 1,000 mls @ 150 mls/hr IV .Q6H40M [facility] Last Admin: 05/22/17 14:29 Dose: 150 mls/hr Losartan Potassium (Cozaar) 25 mg PO DAILY [facility] Last Admin: 05/22/17 13:42 Dose: Not Given Ondansetron HCl (Zofran Inj) 4 mg IVP Q6 PRN PRN Reason: Nausea/Vomiting Pantoprazole Sodium (Protonix Ec Tab) 40 mg PO DAILY [facility] Last Admin: 05/22/17 13:51 Dose: 40 mg Polyethylene Glycol/Electrolytes (Golytely) 4,000 ml PO ONCE ONE Stop: 05/23/17 13:01 Potassium Chloride (K-Dur 20 Meq Er Tab) 20 meq PO DAILY [facility] Last Admin: 05/22/17 14:55 Dose: 20 meq Rosuvastatin Calcium (Crestor) 10 mg PO HS [facility] Last Admin: 05/21/17 21:43 Dose: 10 mg Simethicone (Mylicon Chew Tab) 80 mg PO QID [facility] Last Admin: 05/22/17 14:27 Dose: 80 mg - Labs Labs: 05/22/17 07:19 05/22/17 07:19 PT 13.9 SECONDS (9.7-12.2) H 05/20/17 06:28 INR 1.2 05/20/17 06:28 APTT 37 SECONDS (21-34) H 05/20/17 06:28 - Head Exam Head Exam: ATRAUMATIC, NORMOCEPHALIC - Eye Exam Eye Exam: Normal appearance - ENT Exam ENT Exam: Mucous Membranes Moist - Neck Exam Neck Exam: Normal Inspection - Respiratory Exam Respiratory Exam: Clear to Ausculation Bilateral - Cardiovascular Exam Cardiovascular Exam: REGULAR RHYTHM - GI/Abdominal Exam GI & Abdominal Exam: Soft, Normal Bowel Sounds - Extremities Exam Extremities Exam: Normal Inspection - Neurological Exam Neurological Exam: Alert, Oriented x3 Assessment and Plan (1) Pulmonary emboli Assessment & Plan: Continue Lovenox Status post IVC filter placement Oxygenating well Asymptomatic ABG room air Status: Acute (2) Lung nodules Status: Acute (3) NSTEMI (non-ST elevated myocardial infarction) Status: Acute (4) Deep venous thrombosis of lower extremity Status: Resolved
[2017-05-22] MEDS ORDERED: Heparin25000 units/250ml 1/2NS 25,000 UNITS/250 ML BAG IV PRN (17:37)
[2017-05-22] MEDS ORDERED: Bisacodyl 5mg EC Tab PO ONE (19:00)
[2017-05-23] MEDS: HYDROmorphone 1 mg/ml ISec IVP PRN ×6 (00:13→22:54)
[2017-05-23] MEDS: Lactated Ringer's 1,000 ML IV SCH ×3 (01:15→21:36)
[2017-05-23] MEDS ORDERED: Heparin25000 units/250ml 1/2NS 25,000 UNITS/250 ML BAG IV PRN ×2 (03:00→13:30)
--- NOTE | 2017-05-23 06:20 | CP.PCM.PN ---
Addendum entered and electronically signed by Shaniqua Thompson DO 05/23/17 08:58 : cardiopulmonary clearance obtained from Dr. Ulloa and Dr. Johns Original Note: <Shaniqua Thompson - Last Filed: 05/23/17 08:13> Subjective - Date & Time of Evaluation Date of Evaluation: 05/23/17 Time of Evaluation: 06:18 - Subjective Subjective: Gastroenterology Fellow/PGY5 Progress Note Patient notes mild abdominal pain. Daily bowel movement. Tolerating heart healthy diet. Aware of underlying malignancy and need to proceed with procedures. Plans to talk to family for support. A 12-point review of systems negative except for as above. Objective - Vital Signs/Intake and Output Vital Signs (last 24 hours): Temp Pulse Resp BP Pulse Ox 98.0 F 71 20 103/60 96 05/23/17 04:20 05/23/17 04:20 05/23/17 04:20 05/23/17 04:20 05/23/17 04:20 Intake and Output: 05/22/17 05/23/17 18:59 06:59 Intake Total 220 Balance 220 - Medications Medications: Current Medications Acetaminophen (Tylenol 325mg Tab) 650 mg PO Q6 PRN PRN Reason: Pain, Mild (1-3) Last Admin: 05/18/17 08:42 Dose: 650 mg Aspirin (Ecotrin) 81 mg PO DAILY [facility] Last Admin: 05/22/17 13:42 Dose: Not Given Bisacodyl (Dulcolax) 10 mg PO ONCE ONE Stop: 05/23/17 19:01 Hydromorphone HCl (Dilaudid) 1 mg IVP Q3H PRN PRN Reason: Pain, severe (8-10) Last Admin: 05/23/17 00:13 Dose: 1 mg Ceftriaxone Sodium 1 gm/ (Sodium Chloride) 100 mls @ 100 mls/hr IVPB DAILY [facility] Last Admin: 05/22/17 13:51 Dose: 100 mls/hr Lactated Ringer's (Lactated Ringer's) 1,000 mls @ 100 mls/hr IV .Q10H [facility] Last Admin: 05/23/17 01:15 Dose: 100 mls/hr Heparin Sodium/Sodium Chloride (Heparin 88799 Units/250ml 1/2 Normal Saline) 25 ,000 units in 250 mls @ 11.975 mls/hr IV .[id number] PRN; Protocol; 12 UNITS/KG/HR PRN Reason: PROTOCOL Last Admin: 05/23/17 03:07 Dose: 12 units/kg/hr, 11.975 mls/hr Losartan Potassium (Cozaar) 25 mg PO DAILY [facility] Last Admin: 05/22/17 13:42 Dose: Not Given Ondansetron HCl (Zofran Inj) 4 mg IVP Q6 PRN PRN Reason: Nausea/Vomiting Pantoprazole Sodium (Protonix Ec Tab) 40 mg PO DAILY [facility] Last Admin: 05/22/17 13:51 Dose: 40 mg Polyethylene Glycol/Electrolytes (Golytely) 4,000 ml PO ONCE ONE Stop: 05/23/17 13:01 Potassium Chloride (K-Dur 20 Meq Er Tab) 20 meq PO DAILY [facility] Last Admin: 05/22/17 14:55 Dose: 20 meq Rosuvastatin Calcium (Crestor) 10 mg PO HS [facility] Last Admin: 05/22/17 22:21 Dose: 10 mg Simethicone (Mylicon Chew Tab) 80 mg PO QID [facility] Last Admin: 05/22/17 22:21 Dose: 80 mg - Labs Labs: 05/22/17 07:19 05/22/17 07:19 PT 13.9 SECONDS (9.7-12.2) H 05/20/17 06:28 INR 1.2 05/20/17 06:28 APTT 37 SECONDS (21-34) H D 05/23/17 02:04 - Constitutional Appears: Non-toxic, No Acute Distress - Head Exam Head Exam: ATRAUMATIC, NORMOCEPHALIC - Eye Exam Eye Exam: EOMI, PERRL Pupil Exam: PERRL. absent: Miosis, Mydriatic - ENT Exam ENT Exam: Mucous Membranes Moist, Normal Oropharynx - Neck Exam Neck Exam: Full ROM, Normal Inspection - Respiratory Exam Respiratory Exam: Clear to Ausculation Bilateral. absent: Rales, Rhonchi, Wheezes - Cardiovascular Exam Cardiovascular Exam: RRR, +S1, +S2. absent: Gallop, Rubs - GI/Abdominal Exam GI & Abdominal Exam: Soft, Normal Bowel Sounds, Organomegaly. absent: Distended , Firm, Guarding, Rigid, Tenderness, Rebound Additional comments: hepatosplenomegaly - Extremities Exam Extremities Exam: Normal Inspection. absent: Pedal Edema - Neurological Exam Neurological Exam: Alert, Awake - Psychiatric Exam Psychiatric exam: Normal Affect, Normal Mood - Skin Skin Exam: Dry, Intact, Normal Color, Warm Assessment and Plan - Assessment and Plan (Free Text) Assessment: 56 year old female with history of Hypertension, Hyperlipidemia, Alcohol Abuse, and right lower extremity DVT (05/02/17) previously on Eliquis presenting with shortness of breath, chest pain, and abdominal pain. Active treatment of PE/DVT on full dose Lovenox, NSTEMI, and newly diagnosed cirrhosis likely secondary to alcohol and elevated transaminases in setting of multiple hepatic lesions (max 3.8cm) with lymphadenopathy concerning for metastatic disease, and pulmonary nodules on CT angiography. Prior colonoscopy three years ago at [place] endorsed to be normal. Plan: >MELD 9 >liver biopsy (05/17)- metastatic disease- adenocarcinoma of unknown primary- Upper GI tract, Lower GI tract, or Hepatobiliary >CEA 199, CA 19-9 >5000 >clear liquids, GoLytely bowel prep today >NPO after midnight >hold heparin drip at 3AM on 05/24 in order to proceed with biopsies during endoscopic procedures >scheduled for EGD, EUS, colonoscopy Saturday >further recommendations after endoscopic evaluation <J Carlos Cobos - Last Filed: 05/23/17 13:14> Objective - Vital Signs/Intake and Output Vital Signs (last 24 hours): Temp Pulse Resp BP Pulse Ox 98.0 F 80 20 117/64 96 05/23/17 08:49 05/23/17 08:49 05/23/17 08:49 05/23/17 08:49 05/23/17 08:49 Intake and Output: 05/23/17 05/23/17 06:59 18:59 Intake Total 900 Balance 900 - Medications Medications: Current Medications Acetaminophen (Tylenol 325mg Tab) 650 mg PO Q6 PRN PRN Reason: Pain, Mild (1-3) Last Admin: 05/18/17 08:42 Dose: 650 mg Aspirin (Ecotrin) 81 mg PO DAILY [facility] Last Admin: 05/22/17 13:42 Dose: Not Given Bisacodyl (Dulcolax) 10 mg PO ONCE ONE Stop: 05/23/17 19:01 Hydromorphone HCl (Dilaudid) 1 mg IVP Q3H PRN PRN Reason: Pain, severe (8-10) Last Admin: 05/23/17 10:21 Dose: 1 mg Ceftriaxone Sodium 1 gm/ (Sodium Chloride) 100 mls @ 100 mls/hr IVPB DAILY [facility] Last Admin: 05/23/17 10:00 Dose: 100 mls/hr Lactated Ringer's (Lactated Ringer's) 1,000 mls @ 100 mls/hr IV .Q10H [facility] Last Admin: 05/23/17 01:15 Dose: 100 mls/hr Heparin Sodium/Sodium Chloride (Heparin 50844 Units/250ml 1/2 Normal Saline) 25 ,000 units in 250 mls @ 11.975 mls/hr IV .[id number] PRN; Protocol; 12 UNITS/KG/HR PRN Reason: PROTOCOL Last Admin: 05/23/17 03:07 Dose: 12 units/kg/hr, 11.975 mls/hr Losartan Potassium (Cozaar) 25 mg PO DAILY [facility] Last Admin: 05/23/17 10:20 Dose: 25 mg Ondansetron HCl (Zofran Inj) 4 mg IVP Q6 PRN PRN Reason: Nausea/Vomiting Pantoprazole Sodium (Protonix Ec Tab) 40 mg PO DAILY [facility] Last Admin: 05/23/17 10:20 Dose: 40 mg Potassium Chloride (K-Dur 20 Meq Er Tab) 20 meq PO DAILY [facility] Last Admin: 05/23/17 10:20 Dose: 20 meq Rosuvastatin Calcium (Crestor) 10 mg PO HS [facility] Last Admin: 05/22/17 22:21 Dose: 10 mg Simethicone (Mylicon Chew Tab) 80 mg PO QID [facility] Last Admin: 05/23/17 10:20 Dose: 80 mg - Labs Labs: 05/23/17 07:24 05/23/17 07:24 PT 13.2 SECONDS (9.7-12.2) H 05/23/17 11:36 INR 1.2 05/23/17 11:36 APTT 31 SECONDS (21-34) D 05/23/17 11:36 Attending/Attestation - Attestation I have personally seen and examined this patient.: Yes I have fully participated in the care of the patient.: Yes I have reviewed all pertinent clinical information, including history, physical exam and plan: Yes Notes (Text): 05/23/17 13:08 I have seen and examined patient with GI fellow. No acute events overnight, she continues to endorse epigastric and RUQ abdominal pain. No reported nausea , vomiting, fever/chills. She is having more regular bowel regimens since bowel regimen started, tolerating PO diet. Review of vitals from today are normal. HTN Hyperlipidemia DVT/PE - on heparin drip, s/p IVC filter placement Hepatic lesions s/p IR guided biopsy showing adenocarcinoma of unknown primary, thought to be upper GI Cirrhosis - Diet as tolerated - LFTs stable, continue to monitor - Plan for endoscopic evaluation to assess for malignancy. Appreciate cardiac and pulmonary clearance. - Golytely bowel preparation today, NPO after midnight - Will have to turn off heparin drip 6 hours prior to procedure - Follow up oncology recommendations
--- NOTE | 2017-05-23 07:10 | CP.PCM.PN ---
Subjective - Date & Time of Evaluation Date of Evaluation: 05/23/17 Time of Evaluation: 07:30 - Subjective Subjective: Cardiology consult note for Dr. Ulloa Patient seen and examined at bedside. Nursing reported no acute events overnight. POD#1 IVC filter placement. Patient reports no change in symptoms and continues to complain of gas-like abdominal pain worsened when lying supine. She denied any headache, dizziness, chest pain, palpitations, SOB, cough , nausea, vomiting, bowel/bladder complaints. Patient is being prepped for EGD, EUS, colonoscopy Thursday 05/24. Objective - Vital Signs/Intake and Output Vital Signs (last 24 hours): Temp Pulse Resp BP Pulse Ox 98.0 F 71 20 103/60 96 05/23/17 04:20 05/23/17 04:20 05/23/17 04:20 05/23/17 04:20 05/23/17 04:20 Intake and Output: 05/23/17 05/23/17 06:59 18:59 Intake Total 900 Balance 900 - Medications Medications: Current Medications Acetaminophen (Tylenol 325mg Tab) 650 mg PO Q6 PRN PRN Reason: Pain, Mild (1-3) Last Admin: 05/18/17 08:42 Dose: 650 mg Aspirin (Ecotrin) 81 mg PO DAILY [facility] Last Admin: 05/22/17 13:42 Dose: Not Given Bisacodyl (Dulcolax) 10 mg PO ONCE ONE Stop: 05/23/17 19:01 Hydromorphone HCl (Dilaudid) 1 mg IVP Q3H PRN PRN Reason: Pain, severe (8-10) Last Admin: 05/23/17 00:13 Dose: 1 mg Ceftriaxone Sodium 1 gm/ (Sodium Chloride) 100 mls @ 100 mls/hr IVPB DAILY [facility] Last Admin: 05/22/17 13:51 Dose: 100 mls/hr Lactated Ringer's (Lactated Ringer's) 1,000 mls @ 100 mls/hr IV .Q10H [facility] Last Admin: 05/23/17 01:15 Dose: 100 mls/hr Heparin Sodium/Sodium Chloride (Heparin 08327 Units/250ml 1/2 Normal Saline) 25 ,000 units in 250 mls @ 11.975 mls/hr IV .[id number] PRN; Protocol; 12 UNITS/KG/HR PRN Reason: PROTOCOL Last Admin: 05/23/17 03:07 Dose: 12 units/kg/hr, 11.975 mls/hr Losartan Potassium (Cozaar) 25 mg PO DAILY [facility] Last Admin: 05/22/17 13:42 Dose: Not Given Ondansetron HCl (Zofran Inj) 4 mg IVP Q6 PRN PRN Reason: Nausea/Vomiting Pantoprazole Sodium (Protonix Ec Tab) 40 mg PO DAILY [facility] Last Admin: 05/22/17 13:51 Dose: 40 mg Polyethylene Glycol/Electrolytes (Golytely) 4,000 ml PO ONCE ONE Stop: 05/23/17 13:01 Potassium Chloride (K-Dur 20 Meq Er Tab) 20 meq PO DAILY [facility] Last Admin: 05/22/17 14:55 Dose: 20 meq Rosuvastatin Calcium (Crestor) 10 mg PO HS [facility] Last Admin: 05/22/17 22:21 Dose: 10 mg Simethicone (Mylicon Chew Tab) 80 mg PO QID [facility] Last Admin: 05/22/17 22:21 Dose: 80 mg - Labs Labs: 05/22/17 07:19 05/22/17 07:19 PT 13.9 SECONDS (9.7-12.2) H 05/20/17 06:28 INR 1.2 05/20/17 06:28 APTT 37 SECONDS (21-34) H D 05/23/17 02:04 - Constitutional Appears: No Acute Distress - Head Exam Head Exam: NORMAL INSPECTION - Eye Exam Eye Exam: EOMI, Normal appearance. absent: Conjunctival injection, Scleral icterus - ENT Exam ENT Exam: Mucous Membranes Moist - Neck Exam Neck Exam: Full ROM - Respiratory Exam Respiratory Exam: Clear to Ausculation Bilateral, NORMAL BREATHING PATTERN. absent: Accessory Muscle Use, Rales, Rhonchi, Wheezes, Respiratory Distress - Cardiovascular Exam Cardiovascular Exam: REGULAR RHYTHM, RRR, +S1, +S2. absent: Murmur - GI/Abdominal Exam GI & Abdominal Exam: Soft, Tenderness (R sided), Organomegaly. absent: Firm, Rigid - Extremities Exam Extremities Exam: Normal Inspection. absent: Pedal Edema - Neurological Exam Neurological Exam: Alert, Awake, Oriented x3 - Psychiatric Exam Psychiatric exam: Normal Affect, Normal Mood - Skin Skin Exam: Dry, Intact, Normal Color, Warm Assessment and Plan - Assessment and Plan (Free Text) Assessment: 56 year old female PMHx HTN, HLD, RLE DVT on eliquis (04/2017) presented on 05/14 with chest pain, headache, and SOB for 1 day. Cardiology was originally consulted for NSTEMI and reconsulted for cardiac clearance for GI procedures Plan: -POD#1 IVC filter placement -Echo: normal size EF 65-70% LV diastolic function is normal RV is normal size RV systolic function is normal LA size is normal RA size is normal MR is mild TR is mild -Elevated troponins 0.512 on admission -> 1.0900 -> 0.965 likely noncardiac elevation of enzymes -No acute ST elevations on EKG -Exercise stress test 05/17 was negative -Lipid panel T Cholesterol: 117 LDL: 65 HDL: 28 -heparin gtt to be held 05/24 3am -ASA 81mg po daily -Lovenox 100mg sc q12 -Cozaar 25mg po daily -Crestor 10mg po hs -Patient may proceed for low to moderate risk procedure in lieu of normal Echo and normal stress as benefits outweigh risks Case discussed with Dr. Laila Overton PGY2
--- NOTE | 2017-05-23 07:23 | CP.PCM.PN ---
<Lynda Bansal - Last Filed: 05/23/17 16:48> Subjective - Date & Time of Evaluation Date of Evaluation: 05/23/17 Time of Evaluation: 07:22 - Subjective Subjective: Medicine Progress Report- Dr. Franco's Service Patient was seen and examined at bedside. Patient was resting comfortably. She reports still having epigastric pain and gas, but it has mildly improved. Patient states she had a bowel movement yesterday. She reports eating well and tolerating food. The abdominal pain is still exacerbated by food but has lessened. Patient denies chest pain, palpitations, shortness of breath, dysuria , nausea, vomiting, diarrhea and constipation. Objective - Vital Signs/Intake and Output Vital Signs (last 24 hours): Temp Pulse Resp BP Pulse Ox 98.0 F 71 20 103/60 96 05/23/17 04:20 05/23/17 04:20 05/23/17 04:20 05/23/17 04:20 05/23/17 04:20 Intake and Output: 05/23/17 05/23/17 06:59 18:59 Intake Total 900 Balance 900 - Medications Medications: Current Medications Acetaminophen (Tylenol 325mg Tab) 650 mg PO Q6 PRN PRN Reason: Pain, Mild (1-3) Last Admin: 05/18/17 08:42 Dose: 650 mg Aspirin (Ecotrin) 81 mg PO DAILY [facility] Last Admin: 05/22/17 13:42 Dose: Not Given Bisacodyl (Dulcolax) 10 mg PO ONCE ONE Stop: 05/23/17 19:01 Hydromorphone HCl (Dilaudid) 1 mg IVP Q3H PRN PRN Reason: Pain, severe (8-10) Last Admin: 05/23/17 07:11 Dose: 1 mg Ceftriaxone Sodium 1 gm/ (Sodium Chloride) 100 mls @ 100 mls/hr IVPB DAILY [facility] Last Admin: 05/22/17 13:51 Dose: 100 mls/hr Lactated Ringer's (Lactated Ringer's) 1,000 mls @ 100 mls/hr IV .Q10H [facility] Last Admin: 05/23/17 01:15 Dose: 100 mls/hr Heparin Sodium/Sodium Chloride (Heparin 81409 Units/250ml 1/2 Normal Saline) 25 ,000 units in 250 mls @ 11.975 mls/hr IV .[id number] PRN; Protocol; 12 UNITS/KG/HR PRN Reason: PROTOCOL Last Admin: 05/23/17 03:07 Dose: 12 units/kg/hr, 11.975 mls/hr Losartan Potassium (Cozaar) 25 mg PO DAILY [facility] Last Admin: 05/22/17 13:42 Dose: Not Given Ondansetron HCl (Zofran Inj) 4 mg IVP Q6 PRN PRN Reason: Nausea/Vomiting Pantoprazole Sodium (Protonix Ec Tab) 40 mg PO DAILY [facility] Last Admin: 05/22/17 13:51 Dose: 40 mg Polyethylene Glycol/Electrolytes (Golytely) 4,000 ml PO ONCE ONE Stop: 05/23/17 13:01 Potassium Chloride (K-Dur 20 Meq Er Tab) 20 meq PO DAILY [facility] Last Admin: 05/22/17 14:55 Dose: 20 meq Rosuvastatin Calcium (Crestor) 10 mg PO HS [facility] Last Admin: 05/22/17 22:21 Dose: 10 mg Simethicone (Mylicon Chew Tab) 80 mg PO QID [facility] Last Admin: 05/22/17 22:21 Dose: 80 mg - Labs Labs: 05/22/17 07:19 05/22/17 07:19 PT 13.9 SECONDS (9.7-12.2) H 05/20/17 06:28 INR 1.2 05/20/17 06:28 APTT 37 SECONDS (21-34) H D 05/23/17 02:04 - Constitutional Appears: No Acute Distress - Head Exam Head Exam: NORMAL INSPECTION, NORMOCEPHALIC - Eye Exam Eye Exam: EOMI, Normal appearance - ENT Exam ENT Exam: Mucous Membranes Moist - Neck Exam Neck Exam: Normal Inspection - Respiratory Exam Respiratory Exam: Clear to Ausculation Bilateral, NORMAL BREATHING PATTERN. absent: Rhonchi, Wheezes - Cardiovascular Exam Cardiovascular Exam: REGULAR RHYTHM, +S1, +S2 - GI/Abdominal Exam GI & Abdominal Exam: Soft, Tenderness, Normal Bowel Sounds - Extremities Exam Extremities Exam: Normal Inspection. absent: Calf Tenderness, Pedal Edema, Tenderness - Neurological Exam Neurological Exam: Alert, Awake, Oriented x3 - Psychiatric Exam Psychiatric exam: Normal Affect, Normal Mood - Skin Skin Exam: Dry, Intact, Normal Color, Warm Assessment and Plan (1) Pulmonary emboli Assessment & Plan: SOB, chest pain * CTA: 1. Pulmonary emboli. 2. Pulmonary nodules, indeterminate. Metastatic disease not excluded. Followup as clinically warranted. 3. Liver lesions, indeterminate. Metastatic disease not excluded. Followup as clinically warranted. 4. Incidental/non-acute findings are described above. * Echo- normal size; EF 65-70%; LV diastolic function is normal; RV is normal size; RV systolic function is normal; LA size is normal; RA size is normal; MR is mild; TR is mild * Therapeutic Lovenox 100mg SC BID started--> discontinued 05/22/17 * Heparin Drip- started 05/22/17 * ASA 81mg PO daily * Morphine 2mg IV Q3 PRN for pain * Hematology consult- Dr. Watkins, help appreciated * Pulmonology Consult - Dr. Johns, help appreciated * Pending liver biopsy of the left mass liver * Surgical consult, Dr. Dewey, help appreciated. * IVC filter placed on 05/22/17 * reevaluate thrombus and f/u LE duplex--> DVT of right gastroc. vein and superficial phlebitis of R GSV. * 05/02/17 LE Duplex: right acute thrombus of right gastrocnemius, greater saphenous, and varicose veins with reduction of the venous return. Status: Acute (2) NSTEMI (non-ST elevated myocardial infarction) Assessment & Plan: EKG: NSR @ 90 BPM * EKG- nsr @90 * JANETTE x 3 positive---> 0.512 on admission--->1.0900--->0.965 * Lipid panel: TG 92, Chol 117, LDL 65, HDL 28 * ECHO- EF 65-70%; mild mitral and tricuspid regurgitation * Driver Service Technician consult- Dr. Ulloa, help appreciated * continue current management: Aspirin 81mg PO daily, Cozaar 25 mg PO daily, Crestor 10mg PO daily * Heart Healthy Diet * likely noncardiac elevation of troponins. * Stress Test: negative Status: Acute (3) Lung nodules Assessment & Plan: CTA: Pulmonary nodules, indeterminate. Metastatic disease not excluded. Followup as clinically warranted. 3. Liver lesions, indeterminate. Metastatic disease not excluded. Followup as clinically warranted. * Monitor * Pulmonology consult: Dr. Johns, help appreciated Status: Acute (4) Deep venous thrombosis of lower extremity Assessment & Plan: Diagnosed 04/2017, started on Eliquis currently on 5mg BID - will be held and started on therapeutic lovenox due to PE * Lovenox 100mg sc Q12- restarted [Was Held (05/16/17) for biopsy procedure on 05/17] * Restart lovenox 05/18/17-->discontinued 05/22/17 * Heparin Drip- started 05/22/17 Surgical consult, Dr. Dewey, help appreciated. * As per surgery, patient received IVC filter on 05/22/17 * reevaluate thrombus and f/u LE duplex--> DVT of right gastroc. vein and superficial phlebitis of R GSV. * 05/02/17 LE Duplex: right acute thrombus of right gastrocnemius, greater saphenous, and varicose veins with reduction of the venous return. Status: Resolved (5) HTN (hypertension) Assessment & Plan: Cozaar 25mg PO daily Monitor BP Status: Chronic (6) Constipation Assessment & Plan: Miralax : 17gm PO daily Status: Resolved (7) Hyperlipemia Assessment & Plan: Crestor 10mg PO QHS Lipid panel: TG 92, Chol 117, LDL 65, HDL 28 Status: Chronic (8) UTI (urinary tract infection) Assessment & Plan: UA: + LE * Rocephin 1 gm IVP daily * Urine culture- no growth Repeat UA result (05/17/17): yellow hazy, 1+ protein, 1+ LE, 21 WBC, 25 Squam epith cells, Few Bacteria Status: Acute (9) Abdominal pain Assessment & Plan: GI consult, Dr. Cobos, help appreicated Abdominal ultrasound- multiple hepatic masses, suspicious of mets; hepatosplenomegaly, fatty liver, thickened gallbladder wall; CBD: Measures 6mm, no stones and no dilation. Liver 20.1cm; diffuse increase echogenicity of the liver parenchyma, multiple ill-defined hypoechoic masses, largest approximately 3.8cm in greatest dimension; suspicious masses, spleen 13.2cm Ordered by GI: * CT triple phase liver protocol- numberous b/l lower lobe pulmonary nodules; hepatic lesions suspicious for mets, hepatomegaly, mild gallbladder wall thickening/perichoecystic edema; retroperitoneal lymph nodes measuring up to 14mm; diverticulosis * GGT 441 * AFP 3.0 * CEA 199.0 * Negative: Hep A IgM Ab, Hep Bs Antigen, Hep B core IgM Ab, Hep C Ab * Iron studies: Iron 45, TIBC 236, 19% sat, 1060 Ferritin * AST 53 * ALT 36 * ALK Phosphatase: 397 * IgG 840, IgA 195.5, IgM 50.2 * Negative: Anti-mitochondrial Ab, Anti-smooth muscle Ab, * Liver/Kid Mircosomes Ab: pending * Ca 19-9: >5000 Liver Bx: as per Dr. Cobos's note, liver biospy showed malignancy, not HCC. Stains will be performed and final results pending; procedure performed on As per GI: may benefit from elective colonoscopy; consider outpatient f/u with GI and Hem/Onc for further workup * As per GI, Surgery and Cardiology has given clearance to perform EDG, EUS, and colonoscopy scheduled for Saturday. * Stopped Lovenox on 05/22/17 * Started Heparin drip 05/22/17 (As per Dr. Thompson, will hold starting at 3am prior to procedure- EDG, EUS, Colonoscopy) Status: Acute (10) Liver lesion Assessment & Plan: GI consulted ---> Dr. Cobos * Abdominal ultrasound- multiple hepatic masses, suspicious of mets; hepatosplenomegaly, fatty liver, thickened gallbladder wall; CBD: Measures 6mm, no stones and no dilation. Liver 20.1cm; diffuse increase echogenicity of the liver parenchyma, multiple ill-defined hypoechoic masses, largest approximately 3.8cm in greatest dimension; suspicious masses, spleen 13.2cm * CT: Mildly nodular hepatic contour. Borderline splenomegaly, hepatomegaly. 17mm probable splenule. Sub cm gastohepatic lymph nodes, nonspecific. 10mm probably lymph node, retroperitoneal lymph nodes measuring up to 14mm. * Liver biopsy result: as per Dr. Cobos's note, liver biospy showed malignancy, not HCC. Stains will be performed and final results pending. * As per GI: may benefit from elective colonoscopy; consider outpatient f/u with GI and Hem/Onc for further workup * As per GI, Surgery and Cardiology has given clearance to perform EDG, EUS and colonoscopy scheduled for Saturday. * Stopped Lovenox on 05/22/17 * Started Heparin drip 05/22/17 (As per Dr. Thompson, will hold starting at 3am prior to procedure- EDG, EUS, Colonoscopy) Status: Acute (11) Prophylactic measure Assessment & Plan: GI PPX: Protonix 40mg PO daily DVT PPX: Therapeutic lovenox--> discontinued; started Heparin drip on 05/22/17 for pending EDG, EUS and colonoscopy scheduled for Saturday As per Dr. Thompson, Will hold heparin drip at 3am prior to procedure on Saturday. Status: Acute <Franco,Peter H - Last Filed: 05/23/17 17:49> Objective - Vital Signs/Intake and Output Vital Signs (last 24 hours): Temp Pulse Resp BP Pulse Ox 97.9 F 70 20 114/64 98 05/23/17 15:30 05/23/17 15:30 05/23/17 15:30 05/23/17 15:30 05/23/17 15:30 Intake and Output: 05/23/17 05/23/17 06:59 18:59 Intake Total 900 Balance 900 - Medications Medications: Current Medications Acetaminophen (Tylenol 325mg Tab) 650 mg PO Q6 PRN PRN Reason: Pain, Mild (1-3) Last Admin: 05/18/17 08:42 Dose: 650 mg Aspirin (Ecotrin) 81 mg PO DAILY [facility] Last Admin: 05/22/17 13:42 Dose: Not Given Bisacodyl (Dulcolax) 10 mg PO ONCE ONE Stop: 05/23/17 19:01 Hydromorphone HCl (Dilaudid) 1 mg IVP Q3H PRN PRN Reason: Pain, severe (8-10) Last Admin: 05/23/17 13:22 Dose: 1 mg Ceftriaxone Sodium 1 gm/ (Sodium Chloride) 100 mls @ 100 mls/hr IVPB DAILY [facility] Last Admin: 05/23/17 10:00 Dose: 100 mls/hr Lactated Ringer's (Lactated Ringer's) 1,000 mls @ 100 mls/hr IV .Q10H [facility] Last Admin: 05/23/17 14:00 Dose: 100 mls/hr Heparin Sodium/Sodium Chloride (Heparin 31807 Units/250ml 1/2 Normal Saline) 25 ,000 units in 250 mls @ 15.966 mls/hr IV .[id number] PRN; Protocol; 16 UNITS/KG/HR PRN Reason: PROTOCOL Last Admin: 05/23/17 13:00 Dose: 16 units/kg/hr, 15.966 mls/hr Losartan Potassium (Cozaar) 25 mg PO DAILY [facility] Last Admin: 05/23/17 10:20 Dose: 25 mg Ondansetron HCl (Zofran Inj) 4 mg IVP Q6 PRN PRN Reason: Nausea/Vomiting Pantoprazole Sodium (Protonix Ec Tab) 40 mg PO DAILY [facility] Last Admin: 05/23/17 10:20 Dose: 40 mg Potassium Chloride (K-Dur 20 Meq Er Tab) 20 meq PO DAILY [facility] Last Admin: 05/23/17 10:20 Dose: 20 meq Rosuvastatin Calcium (Crestor) 10 mg PO HS [facility] Last Admin: 05/22/17 22:21 Dose: 10 mg Simethicone (Mylicon Chew Tab) 80 mg PO QID [facility] Last Admin: 05/23/17 13:09 Dose: 80 mg - Labs Labs: 05/23/17 07:24 05/23/17 07:24 PT 13.2 SECONDS (9.7-12.2) H 05/23/17 11:36 INR 1.2 05/23/17 11:36 APTT 31 SECONDS (21-34) D 05/23/17 11:36 Attending/Attestation - Attestation I have personally seen and examined this patient.: Yes I have fully participated in the care of the patient.: Yes I have reviewed all pertinent clinical information, including history, physical exam and plan: Yes Notes (Text): Medical Attending: Patient was seen and examined by me. Agree with the above note by the resident. The patient is currently on a heparin ggt. This will be held early tomorrow morning as she will be undergoing GI work up, as mentioned before our concern is that the liver findings are from a colon CA primary. We discussed this with her. After this, she may also need a mediport to be placed as well. When we saw her, she was not in any acute distress. Does not report chest pain or shortness of breath, however still + lower quarant pain of the abdomen left and right. To summarize, this is a patient who had a DVT discovered recently and sent home with [facility] for anticoagulation - she returned about a month later with chest pain and abdominal pain and ultimately had a PE found via CTA. That CTA also showed liver lesions which was biospied and also pulmonary nodules. She also had a high CEA level and the liver biopsy returned and I am being informed that it is adenocarcinoma and not a liver primary. Because she already has had a PE despite being on anticoagulation she now has an IVC filter. Tommorow will have EGD, EUS, colonscopy done - potentially a biopsy will show colon cancer as primary with spread to the liver and lung. thank you Isaiah Franco
[2017-05-23 07:35] LABS: BASO % 0.7 % (0.0-2.0); EOS # 0.3 K/uL (0.0-0.7); EOS % 4.8 % (0.0-4.0); HEMOGLOBIN 9.5 g/dL (11.0-16.0); LYMPH # 0.8 K/uL (1.0-4.3); LYMPH % 11.4 % (20.0-40.0); MEAN CELL VOLUME 88.4 fL (81.0-99.0); MEAN CORPUSCULAR HEMOGLOBIN 29.3 pg (27.0-31.0); MEAN CORPUSCULAR HGB CONC 33.2 g/dL (33.0-37.0); MEAN PLATELET VOLUME 9.1 fL (7.2-11.7); MONO # 0.8 K/uL (0.0-0.8); MONO % 11.7 % (0.0-10.0); NEUT # 5.2 K/uL (1.8-7.0); NEUT % 71.4 % (50.0-75.0); RBC 3.24 Mil/uL (3.80-5.20); RED CELL DISTRIBUTION WIDTH 12.7 % (11.5-14.5); WHITE BLOOD COUNT 7.2 K/uL (4.8-10.8)
[2017-05-23 07:56] LABS: ALBUMIN 2.7 g/dL (3.5-5.0)
[2017-05-23 07:59] LABS: ALT/SGPT 43 U/L (9-52); AST/SGOT 53 U/L (14-36); BLOOD UREA NITROGEN 5 mg/dL (7-17); GFR AFRICAN-AMERICAN > 60; GFR NON-AFRICAN AMERICAN > 60
[2017-05-23 08:00] LABS: CALCIUM 8.5 mg/dl (8.6-10.4)
[2017-05-23] MEDS: Pantoprazole 40 mg EC Tab PO SCH (10:20)
[2017-05-23] MEDS: Simethicone 80 mg Chewtab PO SCH ×4 (10:20→21:34)
[2017-05-23] MEDS: Potassium Chloride 20 mEq ER Tab PO SCH (10:20)
--- NOTE | 2017-05-23 10:24 | VASCLAB ---
PROCEDURE: Lower Extremity Venous Duplex Exam. HISTORY: Pulmonary Embolism PRIORS: Last exam 05/02/17,abnormal. TECHNIQUE: Bilateral common femoral, femoral, popliteal and posterior tibial, peroneal and great saphenous veins were evaluated. Flow was assessed with color Doppler, compressibility, assessment of phasic flow and augmentation response. Report prepared by DION Persaud FINDINGS: RIGHT: 1. Common Femoral Vein: 1.1. Compressibility - Fully compressible: Thrombus - None : Flow - Phasic: Augmentation -Normal: Reflux - None. 2. Femoral Vein: 2.1. Compressibility - Fully compressible: Thrombus - None : Flow - Phasic: Augmentation -Normal: Reflux - None. 3. Popliteal Vein: 3.1. Compressibility - Fully compressible: Thrombus - None : Flow - Phasic: Augmentation -Normal: Reflux - None. 4. Posterior Tibial Vein: 4.1. Compressibility - Fully compressible: Thrombus - None: Flow - Phasic: Augmentation -Normal: Reflux - None. 5. Peroneal Vein: 5.1. Compressibility - Fully compressible: Thrombus - None: Flow - Phasic: Augmentation -Normal: Reflux - None. 6. Great Saphenous Vein: 6.1. Compressibility - Fully compressible: Thrombus - None: Flow - Phasic: Augmentation - Normal: Reflux - None. LEFT: 1. Common Femoral Vein: 1.1. Compressibility - Fully compressible: Thrombus - None: Flow - Phasic: Augmentation -Normal: Reflux - None. 2. Femoral Vein: 2.1. Compressibility - Fully compressible: Thrombus - None: Flow - Phasic: Augmentation -Normal: Reflux - None. 3. Popliteal Vein: 3.1. Compressibility - Fully compressible: Thrombus - None : Flow - Phasic: Augmentation -Normal: Reflux - None. 4. Posterior Tibial Vein: 4.1. Compressibility - Fully compressible: Thrombus - None: Flow - Phasic: Augmentation -Normal: Reflux - None. 5. Peroneal Vein: 5.1. Compressibility - Fully compressible: Thrombus - None: Flow - Phasic: Augmentation -Normal: Reflux - None. 6. Great Saphenous Vein: 6.1. Compressibility - Fully compressible: Thrombus - None: Flow - Phasic: Augmentation - Normal: Reflux - None. OTHER FINDINGS: Right: None significant. Left: None significant. IMPRESSION: Right: 1. Chronic deep vein thrombosis of the right gastrocnemius vein, with mild reduction of the venous return. 2. Superficial phlebitis of the right great saphenous vein, at the distal thigh level. Left: No evidence of deep or superficial vein thrombosis of the left lower extremity. Normal valve function noted of the left side.
--- NOTE | 2017-05-23 10:37 | CP.PCM.PN ---
Subjective - Date & Time of Evaluation Date of Evaluation: 05/23/17 Time of Evaluation: 08:20 - Subjective Subjective: Vascular sx progress note for Dr. Marcos Youssef, PGY-1 Pt S & E at bedside. Pt w/o complaints over. Able to get OOB, voiding. Mild pain at the incision site , well-controlled with pain regimen. Denies SOB, CP, F/C, N/V/D/C. Objective - Vital Signs/Intake and Output Vital Signs (last 24 hours): Temp Pulse Resp BP Pulse Ox 98.0 F 80 20 117/64 96 05/23/17 08:49 05/23/17 08:49 05/23/17 08:49 05/23/17 08:49 05/23/17 08:49 Intake and Output: 05/23/17 05/23/17 06:59 18:59 Intake Total 900 Balance 900 - Medications Medications: Current Medications Acetaminophen (Tylenol 325mg Tab) 650 mg PO Q6 PRN PRN Reason: Pain, Mild (1-3) Last Admin: 05/18/17 08:42 Dose: 650 mg Aspirin (Ecotrin) 81 mg PO DAILY [facility] Last Admin: 05/22/17 13:42 Dose: Not Given Bisacodyl (Dulcolax) 10 mg PO ONCE ONE Stop: 05/23/17 19:01 Hydromorphone HCl (Dilaudid) 1 mg IVP Q3H PRN PRN Reason: Pain, severe (8-10) Last Admin: 05/23/17 10:21 Dose: 1 mg Ceftriaxone Sodium 1 gm/ (Sodium Chloride) 100 mls @ 100 mls/hr IVPB DAILY [facility] Last Admin: 05/22/17 13:51 Dose: 100 mls/hr Lactated Ringer's (Lactated Ringer's) 1,000 mls @ 100 mls/hr IV .Q10H [facility] Last Admin: 05/23/17 01:15 Dose: 100 mls/hr Heparin Sodium/Sodium Chloride (Heparin 85006 Units/250ml 1/2 Normal Saline) 25 ,000 units in 250 mls @ 11.975 mls/hr IV .[id number] PRN; Protocol; 12 UNITS/KG/HR PRN Reason: PROTOCOL Last Admin: 05/23/17 03:07 Dose: 12 units/kg/hr, 11.975 mls/hr Losartan Potassium (Cozaar) 25 mg PO DAILY [facility] Last Admin: 05/23/17 10:20 Dose: 25 mg Ondansetron HCl (Zofran Inj) 4 mg IVP Q6 PRN PRN Reason: Nausea/Vomiting Pantoprazole Sodium (Protonix Ec Tab) 40 mg PO DAILY [facility] Last Admin: 05/23/17 10:20 Dose: 40 mg Polyethylene Glycol/Electrolytes (Golytely) 4,000 ml PO ONCE ONE Stop: 05/23/17 13:01 Potassium Chloride (K-Dur 20 Meq Er Tab) 20 meq PO DAILY [facility] Last Admin: 05/23/17 10:20 Dose: 20 meq Rosuvastatin Calcium (Crestor) 10 mg PO HS [facility] Last Admin: 05/22/17 22:21 Dose: 10 mg Simethicone (Mylicon Chew Tab) 80 mg PO QID [facility] Last Admin: 05/23/17 10:20 Dose: 80 mg - Labs Labs: 05/23/17 07:24 05/23/17 07:24 PT 13.9 SECONDS (9.7-12.2) H 05/20/17 06:28 INR 1.2 05/20/17 06:28 APTT 37 SECONDS (21-34) H D 05/23/17 02:04 - Constitutional Appears: No Acute Distress - Head Exam Head Exam: ATRAUMATIC, NORMAL INSPECTION, NORMOCEPHALIC - Eye Exam Eye Exam: EOMI, Normal appearance - ENT Exam ENT Exam: Mucous Membranes Moist - Neck Exam Neck Exam: Full ROM - Respiratory Exam Respiratory Exam: Clear to Ausculation Bilateral, NORMAL BREATHING PATTERN - Cardiovascular Exam Cardiovascular Exam: REGULAR RHYTHM, +S1, +S2 - GI/Abdominal Exam GI & Abdominal Exam: Soft, Normal Bowel Sounds - Extremities Exam Extremities Exam: Normal Inspection Additional comments: Right groin dressing with minimal sanguineous strike through; no palpable hematoma. Non-tender. - Neurological Exam Neurological Exam: Alert, Awake, CN II-XII Intact, Normal Gait, Oriented x3 - Psychiatric Exam Psychiatric exam: Normal Affect, Normal Mood - Skin Skin Exam: Dry, Warm Additional comments: See extremity exam for groin skin findings Assessment and Plan - Assessment and Plan (Free Text) Assessment: 56F POD#1 s/p IVC filter insertion, 2/2 DVT. Stable overnight. Plan: Encourage ambulation Encourage IS use No further surgical intervention required at this time Further medical mgmt as per primary team Please re-consult as needed DW attending Domonique, PGY-1
[2017-05-23 11:51] LABS: INR 1.2; PROTHROMBIN TIME 13.2 SECONDS (9.7-12.2)
[2017-05-23] MEDS ORDERED: Peg-Electrolyte Oral Soln 4L (Golytely) PO ONE (13:00)
[2017-05-23 16:27] LABS: ABG ALLEN TEST POS; ARTERIAL BLOOD GAS HEMOGLOBIN 9.4 g/dL (11.7-17.4); ARTERIAL BLOOD GAS O2 SAT 98.6 % (95-98); ARTERIAL BLOOD GAS PCO2 43 mm/Hg (35-45); ARTERIAL BLOOD GAS PH 7.45 (7.35-7.45); ARTERIAL BLOOD GAS PO2 73 mm/Hg (80-100); ARTERIAL BLOOD GAS TCO2 31.2 mmol/L (22-28)
[2017-05-23] MEDS ORDERED: Iohexol 240 (50 ml) PO ONE (17:15)
[2017-05-23] MEDS ORDERED: Iohexol 350mg/ml 100 ML ONE (18:31)
[2017-05-23] MEDS ORDERED: Bisacodyl 5mg EC Tab PO ONE (19:00)
--- NOTE | 2017-05-23 20:27 | CP.PCM.PN ---
Subjective - Date & Time of Evaluation Date of Evaluation: 05/23/17 Time of Evaluation: 19:00 - Subjective Subjective: Has some abdominal cramps Objective - Vital Signs/Intake and Output Vital Signs (last 24 hours): Temp Pulse Resp BP Pulse Ox 97.9 F 70 20 114/64 98 05/23/17 15:30 05/23/17 15:30 05/23/17 15:30 05/23/17 15:30 05/23/17 15:30 - Medications Medications: Current Medications Acetaminophen (Tylenol 325mg Tab) 650 mg PO Q6 PRN PRN Reason: Pain, Mild (1-3) Last Admin: 05/18/17 08:42 Dose: 650 mg Aspirin (Ecotrin) 81 mg PO DAILY [facility] Last Admin: 05/22/17 13:42 Dose: Not Given Hydromorphone HCl (Dilaudid) 1 mg IVP Q3H PRN PRN Reason: Pain, severe (8-10) Last Admin: 05/23/17 18:44 Dose: 1 mg Ceftriaxone Sodium 1 gm/ (Sodium Chloride) 100 mls @ 100 mls/hr IVPB DAILY [facility] Last Admin: 05/23/17 10:00 Dose: 100 mls/hr Lactated Ringer's (Lactated Ringer's) 1,000 mls @ 100 mls/hr IV .Q10H [facility] Last Admin: 05/23/17 14:00 Dose: 100 mls/hr Heparin Sodium/Sodium Chloride (Heparin 39935 Units/250ml 1/2 Normal Saline) 25 ,000 units in 250 mls @ 15.966 mls/hr IV .[id number] PRN; Protocol; 16 UNITS/KG/HR PRN Reason: PROTOCOL Last Admin: 05/23/17 13:00 Dose: 16 units/kg/hr, 15.966 mls/hr Losartan Potassium (Cozaar) 25 mg PO DAILY [facility] Last Admin: 05/23/17 10:20 Dose: 25 mg Ondansetron HCl (Zofran Inj) 4 mg IVP Q6 PRN PRN Reason: Nausea/Vomiting Pantoprazole Sodium (Protonix Ec Tab) 40 mg PO DAILY [facility] Last Admin: 05/23/17 10:20 Dose: 40 mg Potassium Chloride (K-Dur 20 Meq Er Tab) 20 meq PO DAILY [facility] Last Admin: 05/23/17 10:20 Dose: 20 meq Rosuvastatin Calcium (Crestor) 10 mg PO HS [facility] Last Admin: 05/22/17 22:21 Dose: 10 mg Simethicone (Mylicon Chew Tab) 80 mg PO QID [facility] Last Admin: 05/23/17 17:55 Dose: 80 mg - Labs Labs: 05/23/17 07:24 05/23/17 07:24 PT 13.2 SECONDS (9.7-12.2) H 05/23/17 11:36 INR 1.2 05/23/17 11:36 APTT 31 SECONDS (21-34) D 05/23/17 11:36 - Head Exam Head Exam: ATRAUMATIC - Eye Exam Eye Exam: Normal appearance - ENT Exam ENT Exam: Mucous Membranes Dry - Respiratory Exam Respiratory Exam: Decreased Breath Sounds - Cardiovascular Exam Cardiovascular Exam: +S1, +S2 - GI/Abdominal Exam GI & Abdominal Exam: Normal Bowel Sounds - Extremities Exam Extremities Exam: Normal Inspection Assessment and Plan (1) Pulmonary emboli Assessment & Plan: therapeutic anticoagulation Status: Acute (2) Lesion of lung Assessment & Plan: ?malignancy Status: Acute (3) Liver lesion Assessment & Plan: ?metastatic disease Status: Acute (4) Anemia Assessment & Plan: chronic disease Status: Acute (5) Coagulopathy Assessment & Plan: anticoagulation Status: Acute (6) Tobacco abuse Assessment & Plan: smoking cessation Status: Acute
[2017-05-23] MEDS: Heparin25000 units/250ml 1/2NS 25,000 UNITS/250 ML BAG IV PRN (20:45)
[2017-05-24] MEDS: Lactated Ringer's 1,000 ML IV SCH ×2 (00:24→14:33)
[2017-05-24] MEDS: HYDROmorphone 1 mg/ml ISec IVP PRN ×6 (05:38→21:50)
[2017-05-24 07:44] LABS: BASO % 0.7 % (0.0-2.0); EOS # 0.2 K/uL (0.0-0.7); EOS % 3.4 % (0.0-4.0); HEMOGLOBIN 9.1 g/dL (11.0-16.0); LYMPH # 0.7 K/uL (1.0-4.3); LYMPH % 10.2 % (20.0-40.0); MEAN CELL VOLUME 88.6 fL (81.0-99.0); MEAN CORPUSCULAR HEMOGLOBIN 29.8 pg (27.0-31.0); MEAN CORPUSCULAR HGB CONC 33.6 g/dL (33.0-37.0); MEAN PLATELET VOLUME 8.9 fL (7.2-11.7); MONO # 0.8 K/uL (0.0-0.8); MONO % 11.2 % (0.0-10.0); NEUT # 5.1 K/uL (1.8-7.0); NEUT % 74.5 % (50.0-75.0); RBC 3.06 Mil/uL (3.80-5.20); RED CELL DISTRIBUTION WIDTH 13.1 % (11.5-14.5); WHITE BLOOD COUNT 6.8 K/uL (4.8-10.8)
--- NOTE | 2017-05-24 07:44 | CP.PCM.PN ---
Subjective - Date & Time of Evaluation Date of Evaluation: 05/24/17 Time of Evaluation: 16:31 - Subjective Subjective: Cardiology Progress note for Dr. Ulloa Patient seen and examined at bedside post colonoscopy and EGD. She was complaining of abdominal pain and nausea. She was requesting for results of her procedures. Patient denied headache, dizziness, chest pain, palpitations, SOB cough, bowel/bladder complaints, pain/swelling in her legs bilaterally. Objective - Vital Signs/Intake and Output Vital Signs (last 24 hours): Temp Pulse Resp BP Pulse Ox 98.3 F 79 20 124/69 95 05/24/17 04:00 05/24/17 04:00 05/24/17 04:00 05/24/17 04:00 05/24/17 04:00 - Medications Medications: Current Medications Acetaminophen (Tylenol 325mg Tab) 650 mg PO Q6 PRN PRN Reason: Pain, Mild (1-3) Last Admin: 05/18/17 08:42 Dose: 650 mg Aspirin (Ecotrin) 81 mg PO DAILY [facility] Last Admin: 05/22/17 13:42 Dose: Not Given Hydromorphone HCl (Dilaudid) 1 mg IVP Q3H PRN PRN Reason: Pain, severe (8-10) Last Admin: 05/24/17 05:38 Dose: 1 mg Lactated Ringer's (Lactated Ringer's) 1,000 mls @ 100 mls/hr IV .Q10H [facility] Last Admin: 05/24/17 00:24 Dose: 100 mls/hr Heparin Sodium/Sodium Chloride (Heparin 90926 Units/250ml 1/2 Normal Saline) 25 ,000 units in 250 mls @ 13.971 mls/hr IV .[id number] PRN; Protocol; 14 UNITS/KG/HR PRN Reason: PROTOCOL Last Admin: 05/23/17 20:45 Dose: 14 units/kg/hr, 13.971 mls/hr Losartan Potassium (Cozaar) 25 mg PO DAILY [facility] Last Admin: 05/23/17 10:20 Dose: 25 mg Ondansetron HCl (Zofran Inj) 4 mg IVP Q6 PRN PRN Reason: Nausea/Vomiting Pantoprazole Sodium (Protonix Ec Tab) 40 mg PO DAILY [facility] Last Admin: 05/23/17 10:20 Dose: 40 mg Potassium Chloride (K-Dur 20 Meq Er Tab) 20 meq PO DAILY [facility] Last Admin: 05/23/17 10:20 Dose: 20 meq Rosuvastatin Calcium (Crestor) 10 mg PO HS [facility] Last Admin: 05/23/17 21:34 Dose: 10 mg Simethicone (Mylicon Chew Tab) 80 mg PO QID [facility] Last Admin: 05/23/17 21:34 Dose: 80 mg - Labs Labs: 05/23/17 07:24 05/23/17 07:24 PT 13.2 SECONDS (9.7-12.2) H 05/23/17 11:36 INR 1.2 05/23/17 11:36 APTT 100 SECONDS (21-34) H* D 05/23/17 20:08 - Constitutional Appears: No Acute Distress - Head Exam Head Exam: NORMAL INSPECTION - Eye Exam Eye Exam: EOMI, Normal appearance. absent: Conjunctival injection, Scleral icterus - ENT Exam ENT Exam: Mucous Membranes Dry - Respiratory Exam Respiratory Exam: Clear to Ausculation Bilateral, NORMAL BREATHING PATTERN. absent: Accessory Muscle Use, Rales, Rhonchi, Wheezes, Respiratory Distress - Cardiovascular Exam Cardiovascular Exam: REGULAR RHYTHM, RRR, +S1, +S2 - GI/Abdominal Exam GI & Abdominal Exam: Soft, Tenderness, Organomegaly. absent: Firm - Neurological Exam Neurological Exam: Alert, Awake, Oriented x3 - Psychiatric Exam Psychiatric exam: Normal Affect, Normal Mood - Skin Skin Exam: Dry, Intact Assessment and Plan - Assessment and Plan (Free Text) Assessment: 56 year old female PMHx HTN, HLD, RLE DVT on eliquis (04/2017) presented on 05/14 with chest pain, headache, and SOB for 1 day. Cardiology was originally consulted for NSTEMI and reconsulted for cardiac clearance for GI procedures Plan: -POD#2 IVC filter placement -s/p EGD and colonoscopy this AM -Echo 05/14/17: normal size EF 65-70% LV diastolic function is normal RV is normal size RV systolic function is normal LA size is normal RA size is normal MR is mild TR is mild -Elevated troponins 0.512 on admission -> 1.0900 -> 0.965 likely noncardiac elevation of enzymes -No acute ST elevations on EKG -Exercise stress test 05/17 was negative recommend outpatient lexiscan -Lipid panel T Cholesterol: 117 LDL: 65 HDL: 28 -heparin gtt -ASA 81mg po daily -Cozaar 25mg po daily -Crestor 10mg po hs Case discussed with Dr. Laila Overton PGY2
[2017-05-24 07:46] LABS: ALBUMIN 2.7 g/dL (3.5-5.0); ALT/SGPT 39 U/L (9-52); AST/SGOT 54 U/L (14-36); BLOOD UREA NITROGEN 4 mg/dL (7-17); CALCIUM 8.2 mg/dl (8.6-10.4); GFR AFRICAN-AMERICAN > 60; GFR NON-AFRICAN AMERICAN > 60; MAGNESIUM 1.7 mg/dL (1.6-2.3)
--- NOTE | 2017-05-24 09:05 | CT ---
PROCEDURE: CT Abdomen and Pelvis with contrast HISTORY: assess for mets COMPARISON: None. TECHNIQUE: L CT of the and pelvis was performed following oral and dynamic intravenous contrast administration reformatted datasets have been provided in sagittal, axial and coronal planes. Contrast dose: Omnipaque 350 -100 Radiation dose: Total exam DLP = 1159 mGy-cm. This CT exam was performed using one or more of the following dose reduction techniques: Automated exposure control, adjustment of the mA and/or kV according to patient size, and/or use of iterative reconstruction technique. FINDINGS: LOWER THORAX: A few small sub cm pulmonary nodules are identified infrequently scattered at the bilateral lower lobes as well as right middle lobe. No pleural or pericardial effusion. . LIVER: There are innumerable poorly enhancing masses scattered throughout the liver suggestive of metastatic disease. No definite intrahepatic biliary dilatation. GALLBLADDER AND BILE DUCTS: The gallbladder is mildly distended with layering sludge noted in the lumen. Mural thickening is difficult to exclude however the gallbladder is not fully distended. Trace perihepatic ascites is appreciated with edema and trace fluid extending into the right para renal space, of uncertain origin. The intrahepatic biliary tree appears normal caliber. PANCREAS: Unremarkable. No gross lesion or ductal dilatation. SPLEEN: Inhomogeneous enhancement of the spleen is nonspecific with splenomegaly identified to 14.8 cm. The enhancing pattern may be a function of earlier arterial venous phase of contrast enhancement. Mastoid disease not excluded here. ADRENALS: Unremarkable. No mass. KIDNEYS AND URETERS: The right kidney contains a tiny lucency at the lower pole too small to characterize. The left kidney appears diffusely unremarkable. VASCULATURE: Patient status post inferior vena cava filter placement. No aortic aneurysm. BOWEL: Liquid fecal material seen throughout the majority of large bowel, sparing the ascending segment. Nevertheless, no obstruction is identified involving small or large bowel. No gross mural thickening. Limited sigmoid diverticular disease identify without acute diverticulitis. APPENDIX: Normal appendix. PERITONEUM: Limited perihepatic ascites is noted as discussed above. No free air. LYMPH NODES: Prominent lymphadenopathy is appreciated including a 3.1 x 2.0 cm lymph node slightly to left of the celiac artery, and a right-sided celiac lymph node measuring 4.1 x 2.3 cm. BLADDER: Unremarkable. REPRODUCTIVE: Unremarkable. BONES: Limited inferior multilevel thoracic spondylosis of the inferior thoracic spine. Grade 1 spondylolisthesis L5-S1 with L5 slightly anterior to S1. OTHER FINDINGS: None. IMPRESSION: 1. Multifocal hepatic metastases are identified as partially identified and prior chest CT 05/14/2017. Inhomogeneous splenic enhancement may be a function of phase of contrast enhancement though metastatic changes are not excluded here either. Splenomegaly is measured up to 14.8 cm. 2. Layering gallbladder sludge. Mural thickening gallbladder is difficult to completely exclude however the gallbladder is not fully expanded. No definite biliary tree dilatation identified. 3. Upper retroperitoneal lymphadenopathy. 4. Nonacute sigmoid diverticular disease. Liquified fecal material seen throughout the majority of the colon. 5. A few scattered pulmonary nodules identified in the bilateral lung bases incidentally. .
--- NOTE | 2017-05-24 09:26 | CP.PCM.PN ---
<Lynda Bansal - Last Filed: 05/24/17 13:32> Subjective - Date & Time of Evaluation Date of Evaluation: 05/24/17 Time of Evaluation: 09:25 - Subjective Subjective: Medicine Progress Note- Dr. Franco's Service Patient was seen and examined at bedside in no acute distress. Patient was still having abdominal pain in the epigastric region. Patient denies chest pain , leg pain, shortness of breath, headaches, and fevers. Objective - Vital Signs/Intake and Output Vital Signs (last 24 hours): Temp Pulse Resp BP Pulse Ox 97.8 F 75 20 128/72 95 05/24/17 07:05 05/24/17 07:05 05/24/17 07:05 05/24/17 07:05 05/24/17 07:05 - Medications Medications: Current Medications Acetaminophen (Tylenol 325mg Tab) 650 mg PO Q6 PRN PRN Reason: Pain, Mild (1-3) Last Admin: 05/18/17 08:42 Dose: 650 mg Aspirin (Ecotrin) 81 mg PO DAILY [facility] Last Admin: 05/22/17 13:42 Dose: Not Given Hydromorphone HCl (Dilaudid) 1 mg IVP Q3H PRN PRN Reason: Pain, severe (8-10) Last Admin: 05/24/17 08:55 Dose: 1 mg Lactated Ringer's (Lactated Ringer's) 1,000 mls @ 100 mls/hr IV .Q10H [facility] Last Admin: 05/24/17 00:24 Dose: 100 mls/hr Heparin Sodium/Sodium Chloride (Heparin 41828 Units/250ml 1/2 Normal Saline) 25 ,000 units in 250 mls @ 13.971 mls/hr IV .[id number] PRN; Protocol; 14 UNITS/KG/HR PRN Reason: PROTOCOL Last Admin: 05/23/17 20:45 Dose: 14 units/kg/hr, 13.971 mls/hr Losartan Potassium (Cozaar) 25 mg PO DAILY [facility] Last Admin: 05/23/17 10:20 Dose: 25 mg Ondansetron HCl (Zofran Inj) 4 mg IVP Q6 PRN PRN Reason: Nausea/Vomiting Pantoprazole Sodium (Protonix Ec Tab) 40 mg PO DAILY [facility] Last Admin: 05/23/17 10:20 Dose: 40 mg Potassium Chloride (K-Dur 20 Meq Er Tab) 20 meq PO DAILY [facility] Last Admin: 05/23/17 10:20 Dose: 20 meq Rosuvastatin Calcium (Crestor) 10 mg PO HS [facility] Last Admin: 05/23/17 21:34 Dose: 10 mg Simethicone (Mylicon Chew Tab) 80 mg PO QID [facility] Last Admin: 05/23/17 21:34 Dose: 80 mg - Labs Labs: 05/24/17 07:20 05/24/17 07:20 PT 13.2 SECONDS (9.7-12.2) H 05/23/17 11:36 INR 1.2 05/23/17 11:36 APTT 22 SECONDS (21-34) D 05/24/17 07:20 - Constitutional Appears: No Acute Distress - Head Exam Head Exam: NORMAL INSPECTION, NORMOCEPHALIC - Eye Exam Eye Exam: EOMI, Normal appearance - ENT Exam ENT Exam: Mucous Membranes Moist - Neck Exam Neck Exam: Normal Inspection - Respiratory Exam Respiratory Exam: Clear to Ausculation Bilateral, NORMAL BREATHING PATTERN. absent: Rhonchi, Wheezes - Cardiovascular Exam Cardiovascular Exam: REGULAR RHYTHM, +S1, +S2 - GI/Abdominal Exam GI & Abdominal Exam: Distended, Guarding, Tenderness, Normal Bowel Sounds - Extremities Exam Extremities Exam: Full ROM, Normal Inspection. absent: Calf Tenderness, Pedal Edema - Neurological Exam Neurological Exam: Alert, Awake, Oriented x3 - Psychiatric Exam Psychiatric exam: Normal Affect, Normal Mood - Skin Skin Exam: Dry, Intact, Normal Color, Warm Assessment and Plan (1) Pulmonary emboli Assessment & Plan: SOB, chest pain * CTA: 1. Pulmonary emboli. 2. Pulmonary nodules, indeterminate. Metastatic disease not excluded. Followup as clinically warranted. 3. Liver lesions, indeterminate. Metastatic disease not excluded. Followup as clinically warranted. 4. Incidental/non-acute findings are described above. * Echo- normal size; EF 65-70%; LV diastolic function is normal; RV is normal size; RV systolic function is normal; LA size is normal; RA size is normal; MR is mild; TR is mild * Therapeutic Lovenox 100mg SC BID started--> discontinued 05/22/17 * Heparin Drip- started 05/22/17 * ASA 81mg PO daily * Morphine 2mg IV Q3 PRN for pain * Hematology consult- Dr. Watkins, help appreciated * Pulmonology Consult - Dr. Johns, help appreciated * Pending liver biopsy of the left mass liver * Surgical consult, Dr. Dewey, help appreciated. * IVC filter placed on 05/22/17 * reevaluate thrombus and f/u LE duplex--> DVT of right gastroc. vein and superficial phlebitis of R GSV. * 05/02/17 LE Duplex: right acute thrombus of right gastrocnemius, greater saphenous, and varicose veins with reduction of the venous return. Status: Acute (2) NSTEMI (non-ST elevated myocardial infarction) Assessment & Plan: EKG: NSR @ 90 BPM * EKG- nsr @90 * JANETTE x 3 positive---> 0.512 on admission--->1.0900--->0.965 * Lipid panel: TG 92, Chol 117, LDL 65, HDL 28 * ECHO- EF 65-70%; mild mitral and tricuspid regurgitation * [employer] consult- Dr. Ulloa, help appreciated * continue current management: Aspirin 81mg PO daily, Cozaar 25 mg PO daily, Crestor 10mg PO daily * Heart Healthy Diet * likely noncardiac elevation of troponins. * Stress Test: negative Status: Acute (3) Lung nodules Assessment & Plan: CTA: Pulmonary nodules, indeterminate. Metastatic disease not excluded. Followup as clinically warranted. 3. Liver lesions, indeterminate. Metastatic disease not excluded. Followup as clinically warranted. * Monitor * Pulmonology consult: Dr. Johns, help appreciated Status: Acute (4) Deep venous thrombosis of lower extremity Assessment & Plan: Diagnosed 04/2017, started on Eliquis currently on 5mg BID - will be held and started on therapeutic lovenox due to PE * Lovenox 100mg sc Q12- restarted [Was Held (05/16/17) for biopsy procedure on 05/17] * Restart lovenox 05/18/17-->discontinued 05/22/17 * Heparin Drip- started 05/22/17 Surgical consult, Dr. Dewey, help appreciated. * As per surgery, patient received IVC filter on 05/22/17 * reevaluate thrombus and f/u LE duplex--> DVT of right gastroc. vein and superficial phlebitis of R GSV. * 05/02/17 LE Duplex: right acute thrombus of right gastrocnemius, greater saphenous, and varicose veins with reduction of the venous return. Status: Resolved (5) HTN (hypertension) Assessment & Plan: Cozaar 25mg PO daily Monitor BP Status: Chronic (6) Constipation Assessment & Plan: Miralax : 17gm PO daily Status: Resolved (7) Hyperlipemia Assessment & Plan: Crestor 10mg PO QHS Lipid panel: TG 92, Chol 117, LDL 65, HDL 28 Status: Chronic (8) UTI (urinary tract infection) Assessment & Plan: UA: + LE * Rocephin 1 gm IVP daily * Urine culture- no growth Repeat UA result (05/17/17): yellow hazy, 1+ protein, 1+ LE, 21 WBC, 25 Squam epith cells, Few Bacteria Status: Acute (9) Abdominal pain Assessment & Plan: GI consult, Dr. Cobos, help appreicated Abdominal ultrasound- multiple hepatic masses, suspicious of mets; hepatosplenomegaly, fatty liver, thickened gallbladder wall; CBD: Measures 6mm, no stones and no dilation. Liver 20.1cm; diffuse increase echogenicity of the liver parenchyma, multiple ill-defined hypoechoic masses, largest approximately 3.8cm in greatest dimension; suspicious masses, spleen 13.2cm Ordered by GI: * CT triple phase liver protocol- numberous b/l lower lobe pulmonary nodules; hepatic lesions suspicious for mets, hepatomegaly, mild gallbladder wall thickening/perichoecystic edema; retroperitoneal lymph nodes measuring up to 14mm; diverticulosis * GGT 441 * AFP 3.0 * CEA 199.0 * Negative: Hep A IgM Ab, Hep Bs Antigen, Hep B core IgM Ab, Hep C Ab * Iron studies: Iron 45, TIBC 236, 19% sat, 1060 Ferritin * AST 53 * ALT 36 * ALK Phosphatase: 397 * IgG 840, IgA 195.5, IgM 50.2 * Negative: Anti-mitochondrial Ab, Anti-smooth muscle Ab, * Liver/Kid Mircosomes Ab: pending * Ca 19-9: >5000 Liver Bx: as per Dr. Cobos's note, liver biospy showed malignancy, not HCC. Stains will be performed and final results pending; procedure performed on As per GI: may benefit from elective colonoscopy; consider outpatient f/u with GI and Hem/Onc for further workup * As per GI, Surgery and Cardiology has given clearance to perform EDG, EUS, and colonoscopy scheduled for Saturday. * Stopped Lovenox on 05/22/17 * Started Heparin drip 05/22/17 (As per Dr. Thompson, will hold starting at 3am prior to procedure- EDG, EUS, Colonoscopy) Abd/Pelvic CT: multifocal hepatic mets; splenomegaly; layering gallbladder sludge; mural thickening gallbladder; upper retroperitoneal lymphadenopathy; nonacute sigmoid diverticular disease throughout majority of the colon; few scattered pulmonary nodules in B/L lung bases. Colonoscopy: * Ileum, mucosa- normal * Diverticulosis in sigmoid colon and descending colon * 3 to 8mm polyps in rectum, sigmoid and descending colon * internal hemorrhoids * no colon cancer identified * Recommended f/u colonoscopy in 6 months for polypectomy Endoscopy: * normal esophagus, duodenum * gastritis * small hiatus hernia * multiple metastatic lesions found in left and right lobe of liver * mass in genu of pancreas- fine needle bx performed * many abnormal lymph nodes visualized in celiac region, peripancreatic region, and destiny-hepatis region. Status: Acute (10) Liver lesion Assessment & Plan: GI consulted ---> Dr. Cobos * Abdominal ultrasound- multiple hepatic masses, suspicious of mets; hepatosplenomegaly, fatty liver, thickened gallbladder wall; CBD: Measures 6mm, no stones and no dilation. Liver 20.1cm; diffuse increase echogenicity of the liver parenchyma, multiple ill-defined hypoechoic masses, largest approximately 3.8cm in greatest dimension; suspicious masses, spleen 13.2cm * CT: Mildly nodular hepatic contour. Borderline splenomegaly, hepatomegaly. 17mm probable splenule. Sub cm gastohepatic lymph nodes, nonspecific. 10mm probably lymph node, retroperitoneal lymph nodes measuring up to 14mm. * Liver biopsy result: as per Dr. Cobos's note, liver biospy showed malignancy, not HCC. Stains will be performed and final results pending. * As per GI: may benefit from elective colonoscopy; consider outpatient f/u with GI and Hem/Onc for further workup * As per GI, Surgery and Cardiology has given clearance to perform EDG, EUS and colonoscopy scheduled for Saturday. * Stopped Lovenox on 05/22/17 * Started Heparin drip 05/22/17 (As per Dr. Thompson, will hold starting at 3am prior to procedure- EDG, EUS, Colonoscopy) Abd/Pelvic CT: multifocal hepatic mets; splenomegaly; layering gallbladder sludge; mural thickening gallbladder; upper retroperitoneal lymphadenopathy; nonacute sigmoid diverticular disease throughout majority of the colon; few scattered pulmonary nodules in B/L lung bases. Colonoscopy: * Ileum, mucosa- normal * Diverticulosis in sigmoid colon and descending colon * 3 to 8mm polyps in rectum, sigmoid and descending colon * internal hemorrhoids * no colon cancer identified * Recommended f/u colonoscopy in 6 months for polypectomy Endoscopy: * normal esophagus, duodenum * gastritis * small hiatus hernia * multiple metastatic lesions found in left and right lobe of liver * mass in genu of pancreas- fine needle bx performed * many abnormal lymph nodes visualized in celiac region, peripancreatic region, and destiny-hepatis region. Status: Acute (11) Prophylactic measure Assessment & Plan: GI PPX: Protonix 40mg PO daily DVT PPX: Therapeutic lovenox--> discontinued; started Heparin drip on 05/22/17 for pending EDG, EUS and colonoscopy scheduled for Saturday As per Dr. Thompson, Will hold heparin drip at 3am prior to procedure on Saturday. Status: Acute <Franco,Peter H - Last Filed: 05/24/17 16:58> Objective - Vital Signs/Intake and Output Vital Signs (last 24 hours): Temp Pulse Resp BP Pulse Ox 98.6 F 84 20 132/73 97 05/24/17 15:10 05/24/17 15:45 05/24/17 15:10 05/24/17 15:10 05/24/17 15:10 Intake and Output: 05/24/17 05/24/17 06:59 18:59 Intake Total 650 Balance 650 - Medications Medications: Current Medications Acetaminophen (Tylenol 325mg Tab) 650 mg PO Q6 PRN PRN Reason: Pain, Mild (1-3) Last Admin: 05/18/17 08:42 Dose: 650 mg Aspirin (Ecotrin) 81 mg PO DAILY [facility] Last Admin: 05/22/17 13:42 Dose: Not Given Hydromorphone HCl (Dilaudid) 1 mg IVP Q3H PRN PRN Reason: Pain, severe (8-10) Last Admin: 05/24/17 15:04 Dose: 1 mg Lactated Ringer's (Lactated Ringer's) 1,000 mls @ 100 mls/hr IV .Q10H [facility] Last Admin: 05/24/17 14:33 Dose: 100 mls/hr Heparin Sodium/Sodium Chloride (Heparin 91278 Units/250ml 1/2 Normal Saline) 25 ,000 units in 250 mls @ 13.971 mls/hr IV .[id number] PRN; Protocol; 14 UNITS/KG/HR PRN Reason: PROTOCOL Last Admin: 05/23/17 20:45 Dose: 14 units/kg/hr, 13.971 mls/hr Losartan Potassium (Cozaar) 25 mg PO DAILY [facility] Last Admin: 05/24/17 13:25 Dose: 25 mg Ondansetron HCl (Zofran Inj) 4 mg IVP Q6 PRN PRN Reason: Nausea/Vomiting Pantoprazole Sodium (Protonix Ec Tab) 40 mg PO DAILY [facility] Last Admin: 05/24/17 13:25 Dose: 40 mg Potassium Chloride (K-Dur 20 Meq Er Tab) 20 meq PO DAILY [facility] Last Admin: 05/24/17 13:25 Dose: 20 meq Rosuvastatin Calcium (Crestor) 10 mg PO HS [facility] Last Admin: 05/23/17 21:34 Dose: 10 mg Simethicone (Mylicon Chew Tab) 80 mg PO QID [facility] Last Admin: 05/24/17 13:25 Dose: 80 mg - Labs Labs: 05/24/17 07:20 05/24/17 07:20 PT 13.2 SECONDS (9.7-12.2) H 05/23/17 11:36 INR 1.2 05/23/17 11:36 APTT 22 SECONDS (21-34) D 05/24/17 07:20 Attending/Attestation - Attestation I have personally seen and examined this patient.: Yes I have fully participated in the care of the patient.: Yes I have reviewed all pertinent clinical information, including history, physical exam and plan: Yes Notes (Text): 05/24/17 16:52 Medical attending: Patient was seen and examined by me, agree with the above note by medical chemist. The patient today went down to endoscopy to have several GI procedures done to help try to diagnose the origin of the malignancy that she has she had EGD, colonoscopy. She does have pancreatic mass that was biopsied. There was also identification of a lot of large lymph nodes in the celiac and portal regions seen on the report. The colonoscopy report suggested that she has a lot of polyps in the rectum and sigmoid and descending colon areas. At this time and wait on these biopsies of the pancreas. She does have a very elevated CA-19-9 level and also CEA level At which point we may also need a Mediport placed Thank you very much, Isaiah Franco
[2017-05-24] MEDS ORDERED: Propofol 10 mg/ml Inj (20 ML) ONE ×2 (10:50→11:38)
[2017-05-24] MEDS ORDERED: Midazolam 2 MG/2 ML VIAL ONE (10:50)
[2017-05-24] MEDS: Potassium Chloride 20 mEq ER Tab PO SCH (13:25)
[2017-05-24] MEDS: Simethicone 80 mg Chewtab PO SCH ×4 (13:25→21:50)
[2017-05-24] MEDS: Pantoprazole 40 mg EC Tab PO SCH (13:25)
[2017-05-24] MEDS: Heparin25000 units/250ml 1/2NS 25,000 UNITS/250 ML BAG IV PRN (21:47)
[2017-05-25] MEDS: Lactated Ringer's 1,000 ML IV SCH ×3 (00:30→21:23)
[2017-05-25] MEDS: HYDROmorphone 1 mg/ml ISec IVP PRN ×6 (02:40→20:07)
[2017-05-25 06:52] LABS: BASO # 0.1 K/uL (0.0-0.2); BASO % 0.8 % (0.0-2.0); EOS # 0.2 K/uL (0.0-0.7); EOS % 2.9 % (0.0-4.0); HEMOGLOBIN 9.3 g/dL (11.0-16.0); LYMPH # 1.1 K/uL (1.0-4.3); MEAN CORPUSCULAR HEMOGLOBIN 29.2 pg (27.0-31.0); MEAN CORPUSCULAR HGB CONC 32.9 g/dL (33.0-37.0); MONO # 0.9 K/uL (0.0-0.8); MONO % 10.8 % (0.0-10.0); NEUT # 6.1 K/uL (1.8-7.0); NEUT % 72.5 % (50.0-75.0); NRBC % 0.1 % (0.0-2.0); RBC 3.18 Mil/uL (3.80-5.20); RED CELL DISTRIBUTION WIDTH 13.4 % (11.5-14.5); WHITE BLOOD COUNT 8.5 K/uL (4.8-10.8)
[2017-05-25 07:13] LABS: ALBUMIN 2.5 g/dL (3.5-5.0)
[2017-05-25 07:15] LABS: GFR AFRICAN-AMERICAN > 60; GFR NON-AFRICAN AMERICAN > 60
[2017-05-25 07:16] LABS: ALT/SGPT 39 U/L (9-52); AST/SGOT 53 U/L (14-36); BLOOD UREA NITROGEN 4 mg/dL (7-17)
[2017-05-25 07:17] LABS: CALCIUM 8.4 mg/dl (8.6-10.4); MAGNESIUM 1.7 mg/dL (1.6-2.3)
--- NOTE | 2017-05-25 09:05 | CP.PCM.PN ---
Subjective - Date & Time of Evaluation Date of Evaluation: 05/25/17 Objective - Vital Signs/Intake and Output Vital Signs (last 24 hours): Temp Pulse Resp BP Pulse Ox 97.6 F 82 20 133/77 96 05/25/17 07:00 05/25/17 07:00 05/25/17 07:00 05/25/17 07:00 05/25/17 07:00 Intake and Output: 05/25/17 05/25/17 06:59 18:59 Intake Total 1000 Balance 1000 - Medications Medications: Current Medications Acetaminophen (Tylenol 325mg Tab) 650 mg PO Q6 PRN PRN Reason: Pain, Mild (1-3) Last Admin: 05/25/17 00:32 Dose: 650 mg Aspirin (Ecotrin) 81 mg PO DAILY [facility] Last Admin: 05/22/17 13:42 Dose: Not Given Hydromorphone HCl (Dilaudid) 1 mg IVP Q3H PRN PRN Reason: Pain, severe (8-10) Last Admin: 05/25/17 07:15 Dose: 1 mg Lactated Ringer's (Lactated Ringer's) 1,000 mls @ 100 mls/hr IV .Q10H [facility] Last Admin: 05/25/17 00:30 Dose: 100 mls/hr Heparin Sodium/Sodium Chloride (Heparin 68219 Units/250ml 1/2 Normal Saline) 25 ,000 units in 250 mls @ 13.971 mls/hr IV .[id number] PRN; Protocol; 14 UNITS/KG/HR PRN Reason: PROTOCOL Last Admin: 05/24/17 21:47 Dose: 14 units/kg/hr, 13.971 mls/hr Losartan Potassium (Cozaar) 25 mg PO DAILY [facility] Last Admin: 05/24/17 13:25 Dose: 25 mg Ondansetron HCl (Zofran Inj) 4 mg IVP Q6 PRN PRN Reason: Nausea/Vomiting Pantoprazole Sodium (Protonix Ec Tab) 40 mg PO DAILY [facility] Last Admin: 05/24/17 13:25 Dose: 40 mg Potassium Chloride (K-Dur 20 Meq Er Tab) 20 meq PO DAILY [facility] Last Admin: 05/24/17 13:25 Dose: 20 meq Rosuvastatin Calcium (Crestor) 10 mg PO HS [facility] Last Admin: 05/24/17 21:47 Dose: 10 mg Simethicone (Mylicon Chew Tab) 80 mg PO QID [facility] Last Admin: 05/24/17 21:50 Dose: 80 mg - Labs Labs: 05/25/17 06:36 05/25/17 06:36 PT 13.2 SECONDS (9.7-12.2) H 05/23/17 11:36 INR 1.2 05/23/17 11:36 APTT 57 SECONDS (21-34) H D 05/25/17 03:19
--- NOTE | 2017-05-25 09:16 | CP.PCM.PN ---
Subjective - Date & Time of Evaluation Date of Evaluation: 05/25/17 Time of Evaluation: 09:00 - Subjective Subjective: Patient seen and examined by me. She reports she had a lot of pain - mostly epigastric area. She denied chest pain, denied shortness of breath, her appetite was poor. Denied nausea or vomiting. Yesterday she had EGD, EUS, and Colonscopy. There is a concerning mass/lesion/ area of the pancreas that was biopsied. Also the liver biopsy returned and is reported as adenocarcinoma - this report also suggest that maybe this malignancy was of a pancreatic billiary origin. Today when I spoke and examined the patient she explained that she did not remember well what happened yesterday so I did explain to her that considering the very elevated CA 19-9, as well as the liver biopsy suggesting a pancreatic billiary origin of the cancer - and also the EUS showing a mass on the pancreas that probably this is a pancreatic CA. Her family is coming today, the patient said she was ok if we discussed with the family. In the meantime she is still on the heparin ggt for the PE/DVT. She also recently had IVC filter placed. Objective - Vital Signs/Intake and Output Vital Signs (last 24 hours): Temp Pulse Resp BP Pulse Ox 97.6 F 82 20 133/77 96 05/25/17 07:00 05/25/17 07:00 05/25/17 07:00 05/25/17 07:00 05/25/17 07:00 Intake and Output: 05/25/17 05/25/17 06:59 18:59 Intake Total 1000 Balance 1000 - Medications Medications: Current Medications Acetaminophen (Tylenol 325mg Tab) 650 mg PO Q6 PRN PRN Reason: Pain, Mild (1-3) Last Admin: 05/25/17 00:32 Dose: 650 mg Aspirin (Ecotrin) 81 mg PO DAILY [facility] Last Admin: 05/22/17 13:42 Dose: Not Given Hydromorphone HCl (Dilaudid) 1 mg IVP Q3H PRN PRN Reason: Pain, severe (8-10) Last Admin: 05/25/17 07:15 Dose: 1 mg Lactated Ringer's (Lactated Ringer's) 1,000 mls @ 100 mls/hr IV .Q10H [facility] Last Admin: 05/25/17 00:30 Dose: 100 mls/hr Heparin Sodium/Sodium Chloride (Heparin 36225 Units/250ml 1/2 Normal Saline) 25 ,000 units in 250 mls @ 13.971 mls/hr IV .[id number] PRN; Protocol; 14 UNITS/KG/HR PRN Reason: PROTOCOL Last Admin: 05/24/17 21:47 Dose: 14 units/kg/hr, 13.971 mls/hr Losartan Potassium (Cozaar) 25 mg PO DAILY [facility] Last Admin: 05/24/17 13:25 Dose: 25 mg Ondansetron HCl (Zofran Inj) 4 mg IVP Q6 PRN PRN Reason: Nausea/Vomiting Oxycodone HCl (Oxycontin Extended Release Tab) 20 mg PO Q12 [facility] Pantoprazole Sodium (Protonix Ec Tab) 40 mg PO DAILY [facility] Last Admin: 05/24/17 13:25 Dose: 40 mg Potassium Chloride (K-Dur 20 Meq Er Tab) 20 meq PO DAILY [facility] Last Admin: 05/24/17 13:25 Dose: 20 meq Rosuvastatin Calcium (Crestor) 10 mg PO HS [facility] Last Admin: 05/24/17 21:47 Dose: 10 mg Simethicone (Mylicon Chew Tab) 80 mg PO QID [facility] Last Admin: 05/24/17 21:50 Dose: 80 mg - Labs Labs: 05/25/17 06:36 05/25/17 06:36 PT 13.2 SECONDS (9.7-12.2) H 05/23/17 11:36 INR 1.2 05/23/17 11:36 APTT 57 SECONDS (21-34) H D 05/25/17 03:19 - Constitutional Appears: No Acute Distress, Chronically Ill - Head Exam Head Exam: NORMAL INSPECTION, NORMOCEPHALIC - Eye Exam Eye Exam: EOMI, Normal appearance - Respiratory Exam Respiratory Exam: Clear to Ausculation Bilateral, NORMAL BREATHING PATTERN - Cardiovascular Exam Cardiovascular Exam: REGULAR RHYTHM - GI/Abdominal Exam GI & Abdominal Exam: Soft, Normal Bowel Sounds - Neurological Exam Neurological Exam: Alert, Awake, CN II-XII Intact, Oriented x3 Neuro motor strength exam: Left Upper Extremity: 5, Right Upper Extremity: 5, Left Lower Extremity: 5, Right Lower Extremity: 5 - Psychiatric Exam Psychiatric exam: Normal Affect, Normal Mood - Skin Skin Exam: Normal Color, Warm Assessment and Plan - Assessment and Plan (Free Text) Assessment: Assessment and Plan (1) Abdominal pain - likely a pancreatic CA with metastatic spread to the liver and lung. 05/25: As mentioned previously she had an EGD, EUS, and colonscopy done yesterday. There was a pancreatic mass/lesion that has been biopsied. The previous liver biopsy on 05/17 has finalized and it's adenocarcinoma - and that liver biopsy report also suggested pancreatic billiary origin. She does have a very elevated CA-19-9 as well. She was in more pain today, already on IV dilaudid. Will add on oxycontin 20mg PO BID extended release. We could increase pain meds more however she does have a PE that we are treating. GI consult, Dr. Cobos, help appreicated Abdominal ultrasound- multiple hepatic masses, suspicious of mets; hepatosplenomegaly, fatty liver, thickened gallbladder wall; CBD: Measures 6mm, no stones and no dilation. Liver 20.1cm; diffuse increase echogenicity of the liver parenchyma, multiple ill-defined hypoechoic masses, largest approximately 3.8cm in greatest dimension; suspicious masses, spleen 13.2cm Ordered by GI: * CT triple phase liver protocol- numberous b/l lower lobe pulmonary nodules; hepatic lesions suspicious for mets, hepatomegaly, mild gallbladder wall thickening/perichoecystic edema; retroperitoneal lymph nodes measuring up to 14mm; diverticulosis * GGT 441 * AFP 3.0 * CEA 199.0 * Negative: Hep A IgM Ab, Hep Bs Antigen, Hep B core IgM Ab, Hep C Ab * Iron studies: Iron 45, TIBC 236, 19% sat, 1060 Ferritin * AST 53 * ALT 36 * ALK Phosphatase: 397 * IgG 840, IgA 195.5, IgM 50.2 * Negative: Anti-mitochondrial Ab, Anti-smooth muscle Ab, * Liver/Kid Mircosomes Ab: pending * Ca 19-9: >5000 Liver Bx: as per Dr. Cobos's note, liver biospy showed malignancy, not HCC. Stains will be performed and final results pending; procedure performed on . The liver biopys shows adenocarcinoma as well as probably the origin being that of the pancrease or billiary tree. * Stopped Lovenox on 05/22/17 Abd/Pelvic CT: multifocal hepatic mets; splenomegaly; layering gallbladder sludge; mural thickening gallbladder; upper retroperitoneal lymphadenopathy; nonacute sigmoid diverticular disease throughout majority of the colon; few scattered pulmonary nodules in B/L lung bases. Colonoscopy: * Ileum, mucosa- normal * Diverticulosis in sigmoid colon and descending colon * 3 to 8mm polyps in rectum, sigmoid and descending colon * internal hemorrhoids * no colon cancer identified * Recommended f/u colonoscopy in 6 months for polypectomy Endoscopy: * normal esophagus, duodenum * gastritis * small hiatus hernia * multiple metastatic lesions found in left and right lobe of liver * mass in genu of pancreas- fine needle bx performed * many abnormal lymph nodes visualized in celiac region, peripancreatic region, and destiny-hepatis region. (2) Liver lesion 05/25: The biopy returned as adenocarcinoma, with report suggesting that it is a pancreatic/billiary origin. Biopsy of the pancreas is pending * Abdominal ultrasound- multiple hepatic masses, suspicious of mets; hepatosplenomegaly, fatty liver, thickened gallbladder wall; CBD: Measures 6mm, no stones and no dilation. Liver 20.1cm; diffuse increase echogenicity of the liver parenchyma, multiple ill-defined hypoechoic masses, largest approximately 3.8cm in greatest dimension; suspicious masses, spleen 13.2cm * CT: Mildly nodular hepatic contour. Borderline splenomegaly, hepatomegaly. 17mm probable splenule. Sub cm gastohepatic lymph nodes, nonspecific. 10mm probably lymph node, retroperitoneal lymph nodes measuring up to 14mm. * Stopped Lovenox on 05/22/17 * Started Heparin drip 05/22/17 (As per Dr. Thompson, will hold starting at 3am prior to procedure- EDG, EUS, Colonoscopy) Abd/Pelvic CT: multifocal hepatic mets; splenomegaly; layering gallbladder sludge; mural thickening gallbladder; upper retroperitoneal lymphadenopathy; nonacute sigmoid diverticular disease throughout majority of the colon; few scattered pulmonary nodules in B/L lung bases. Colonoscopy: * Ileum, mucosa- normal * Diverticulosis in sigmoid colon and descending colon * 3 to 8mm polyps in rectum, sigmoid and descending colon * internal hemorrhoids * no colon cancer identified * Recommended f/u colonoscopy in 6 months for polypectomy Endoscopy: * normal esophagus, duodenum * gastritis * small hiatus hernia * multiple metastatic lesions found in left and right lobe of liver * mass in genu of pancreas- fine needle bx performed * many abnormal lymph nodes visualized in celiac region, peripancreatic region, and destiny-hepatis region. (3) Pulmonary emboli 05/25: Patient denied having chest pain and denied shortness of breath. On telemetry HR was in the 80s to 90s and is NSR. She was previously on lovenox SC BID in theraputic doses but I changed over to heparin ggt. She also has an IVC filter. Curre SOB, chest pain * CTA: 1. Pulmonary emboli. 2. Pulmonary nodules, indeterminate. Metastatic disease not excluded. Followup as clinically warranted. 3. Liver lesions, indeterminate. Metastatic disease not excluded. Followup as clinically warranted. 4. Incidental/non-acute findings are described above. * Echo- normal size; EF 65-70%; LV diastolic function is normal; RV is normal size; RV systolic function is normal; LA size is normal; RA size is normal; MR is mild; TR is mild * Therapeutic Lovenox 100mg SC BID started--> discontinued 05/22/17 * Heparin Drip- started 05/22/17 * ASA 81mg PO daily * Hematology consult- Dr. Watkins, help appreciated * Pulmonology Consult - Dr. Johns, help appreciated * Pending liver biopsy of the left mass liver * Surgical consult, Dr. Dewey, help appreciated. * IVC filter placed on 05/22/17 * reevaluate thrombus and f/u LE duplex--> DVT of right gastroc. vein and superficial phlebitis of R GSV. * 05/02/17 LE Duplex: right acute thrombus of right gastrocnemius, greater saphenous, and varicose veins with reduction of the venous return. 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 Probably the +troponins are from the PE. Currently on heparin ggt at this time, statin, ASA on hold. EKG: NSR @ 90 BPM * EKG- nsr @90 * JANETTE x 3 positive---> 0.512 on admission--->1.0900--->0.965 * Lipid panel: TG 92, Chol 117, LDL 65, HDL 28 * ECHO- EF 65-70%; mild mitral and tricuspid regurgitation * Animal Breeder consult- Dr. Ulloa, help appreciated * continue current management: Aspirin 81mg PO daily, Cozaar 25 mg PO daily, Crestor 10mg PO daily * Heart Healthy Diet * likely noncardiac elevation of troponins. * Stress Test: negative (5) Lung nodules Assessment & Plan: 05/25: While it maybe too early to say, probably pancreatic/billiary CA in origin. Pending the pancreas biopsy results CTA: Pulmonary nodules, indeterminate. Metastatic disease not excluded. Followup as clinically warranted. 3. Liver lesions, indeterminate. Metastatic disease not excluded. Followup as clinically warranted. * Monitor * Pulmonology consult: Dr. Johns, help appreciated (4) Deep venous thrombosis of lower extremity Assessment & Plan: 05/25: She previously was on PO Eliquis before she came in with the PE. She now has an IVC filter. For a while she was on lovenox, however we changed over to heparin since she's been having a lot of procedures. Surgical consult, Dr. Dewey, help appreciated. * As per surgery, patient received IVC filter on 05/22/17 * reevaluate thrombus and f/u LE duplex--> DVT of right gastroc. vein and superficial phlebitis of R GSV. * 05/02/17 LE Duplex: right acute thrombus of right gastrocnemius, greater saphenous, and varicose veins with reduction of the venous return. (5) HTN (hypertension) Assessment & Plan: Cozaar 25mg PO daily Monitor BP (6) Hyperlipemia Assessment & Plan: Crestor 10mg PO QHS Lipid panel: TG 92, Chol 117, LDL 65, HDL 28 (8) UTI (urinary tract infection) Assessment & Plan: UA: + LE * Rocephin 1 gm IVP daily * Urine culture- no growth Repeat UA result (05/17/17): yellow hazy, 1+ protein, 1+ LE, 21 WBC, 25 Squam epith cells, Few Bacteria (9) Prophylactic measure Assessment & Plan: GI PPX: Protonix 40mg PO daily DVT PPX: Therapeutic lovenox--> discontinued; Currently on heparin ggt
[2017-05-25] MEDS: oxyCODONE 20 mg ER Tab (oxyCONTIN) PO SCH ×2 (10:04→21:22)
[2017-05-25] MEDS: Pantoprazole 40 mg EC Tab PO SCH (10:05)
[2017-05-25] MEDS: Potassium Chloride 20 mEq ER Tab PO SCH (10:05)
[2017-05-25] MEDS: Simethicone 80 mg Chewtab PO SCH ×4 (10:05→21:22)
--- NOTE | 2017-05-25 11:38 | CP.PCM.PN ---
<Bunny Johnson - Last Filed: 05/25/17 11:38> Subjective - Date & Time of Evaluation Date of Evaluation: 05/25/17 Time of Evaluation: 11:00 - Subjective Subjective: PGY5 GI Fellow Progress Note Patient seen and examined bedside this morning. The patient states she continues to have epigastric pain, sharp in nature. No nausea, vomiting. Minimal appetite but not necessarily a change from baseline per patient. No events overnight. 12 system ROS performed and negative except where stated. Objective - Vital Signs/Intake and Output Vital Signs (last 24 hours): Temp Pulse Resp BP Pulse Ox 97.6 F 82 20 133/77 96 05/25/17 07:00 05/25/17 07:00 05/25/17 07:00 05/25/17 07:00 05/25/17 07:00 Intake and Output: 05/25/17 05/25/17 06:59 18:59 Intake Total 1000 Balance 1000 - Medications Medications: Current Medications Acetaminophen (Tylenol 325mg Tab) 650 mg PO Q6 PRN PRN Reason: Pain, Mild (1-3) Last Admin: 05/25/17 00:32 Dose: 650 mg Aspirin (Ecotrin) 81 mg PO DAILY [facility] Last Admin: 05/22/17 13:42 Dose: Not Given Hydromorphone HCl (Dilaudid) 1 mg IVP Q3H PRN PRN Reason: Pain, severe (8-10) Last Admin: 05/25/17 10:05 Dose: 1 mg Lactated Ringer's (Lactated Ringer's) 1,000 mls @ 100 mls/hr IV .Q10H [facility] Last Admin: 05/25/17 00:30 Dose: 100 mls/hr Heparin Sodium/Sodium Chloride (Heparin 98802 Units/250ml 1/2 Normal Saline) 25 ,000 units in 250 mls @ 13.971 mls/hr IV .[id number] PRN; Protocol; 14 UNITS/KG/HR PRN Reason: PROTOCOL Last Admin: 05/24/17 21:47 Dose: 14 units/kg/hr, 13.971 mls/hr Losartan Potassium (Cozaar) 25 mg PO DAILY [facility] Last Admin: 05/25/17 10:05 Dose: 25 mg Ondansetron HCl (Zofran Inj) 4 mg IVP Q6 PRN PRN Reason: Nausea/Vomiting Oxycodone HCl (Oxycontin Extended Release Tab) 20 mg PO Q12 [facility] Last Admin: 05/25/17 10:04 Dose: 20 mg Pantoprazole Sodium (Protonix Ec Tab) 40 mg PO DAILY [facility] Last Admin: 05/25/17 10:05 Dose: 40 mg Potassium Chloride (K-Dur 20 Meq Er Tab) 20 meq PO DAILY [facility] Last Admin: 05/25/17 10:05 Dose: 20 meq Rosuvastatin Calcium (Crestor) 10 mg PO HS [facility] Last Admin: 05/24/17 21:47 Dose: 10 mg Simethicone (Mylicon Chew Tab) 80 mg PO QID [facility] Last Admin: 05/25/17 10:05 Dose: 80 mg - Labs Labs: 05/25/17 06:36 05/25/17 06:36 PT 13.2 SECONDS (9.7-12.2) H 05/23/17 11:36 INR 1.2 05/23/17 11:36 APTT 57 SECONDS (21-34) H D 05/25/17 03:19 - Constitutional Appears: Non-toxic, No Acute Distress - Eye Exam Eye Exam: EOMI, PERRL - ENT Exam ENT Exam: Mucous Membranes Moist - Respiratory Exam Respiratory Exam: Clear to Ausculation Bilateral. absent: Rales, Rhonchi, Wheezes - Cardiovascular Exam Cardiovascular Exam: RRR, +S1, +S2 - GI/Abdominal Exam GI & Abdominal Exam: Soft, Normal Bowel Sounds. absent: Distended, Firm, Guarding, Rigid, Tenderness, Organomegaly - Extremities Exam Extremities Exam: Normal Inspection. absent: Pedal Edema - Neurological Exam Neurological Exam: Alert, Awake, Oriented x3 - Psychiatric Exam Psychiatric exam: Normal Affect, Normal Mood - Skin Skin Exam: Dry, Warm Assessment and Plan - Assessment and Plan (Free Text) Assessment: Patient is a 56yo female with PMHx significant for HTN, HLD, DVT previously on eliquis who was admitted with CP/SOB, found to have PE, NSTEMI. GI consulted for chronic abdominal pain. -Pancreatic head mass noted on EUS with multiple liver lesions - bx showing adenocarcinoma of liver, possible pancreatic primary Plan: -S/P EGD/EUS/Colonoscopy - pancreatic head mass noted, biopsied - results pending -S/P IVC filter placement -Remains on anticoagulation as ordered -Continue PPI, Miralax as ordered -Diet as tolerated -Plan per pathology results <Alondra Britton MD - Last Filed: 05/25/17 16:20> Objective - Vital Signs/Intake and Output Vital Signs (last 24 hours): Temp Pulse Resp BP Pulse Ox 97.6 F 89 20 133/77 96 05/25/17 07:00 05/25/17 15:45 05/25/17 07:00 05/25/17 07:00 05/25/17 07:00 Intake and Output: 05/25/17 05/25/17 06:59 18:59 Intake Total 1000 250 Balance 1000 250 - Medications Medications: Current Medications Acetaminophen (Tylenol 325mg Tab) 650 mg PO Q6 PRN PRN Reason: Pain, Mild (1-3) Last Admin: 05/25/17 00:32 Dose: 650 mg Aspirin (Ecotrin) 81 mg PO DAILY [facility] Last Admin: 05/22/17 13:42 Dose: Not Given Hydromorphone HCl (Dilaudid) 1 mg IVP Q3H PRN PRN Reason: Pain, severe (8-10) Last Admin: 05/25/17 15:50 Dose: 1 mg Lactated Ringer's (Lactated Ringer's) 1,000 mls @ 100 mls/hr IV .Q10H [facility] Last Admin: 05/25/17 12:38 Dose: 100 mls/hr Heparin Sodium/Sodium Chloride (Heparin 51830 Units/250ml 1/2 Normal Saline) 25 ,000 units in 250 mls @ 15.966 mls/hr IV .[id number] PRN; Protocol; 16 UNITS/KG/HR PRN Reason: PROTOCOL Last Admin: 05/25/17 15:38 Dose: 16 units/kg/hr, 15.966 mls/hr Losartan Potassium (Cozaar) 25 mg PO DAILY [facility] Last Admin: 05/25/17 10:05 Dose: 25 mg Ondansetron HCl (Zofran Inj) 4 mg IVP Q6 PRN PRN Reason: Nausea/Vomiting Oxycodone HCl (Oxycontin Extended Release Tab) 20 mg PO Q12 [facility] Last Admin: 05/25/17 10:04 Dose: 20 mg Pantoprazole Sodium (Protonix Ec Tab) 40 mg PO DAILY [facility] Last Admin: 05/25/17 10:05 Dose: 40 mg Potassium Chloride (K-Dur 20 Meq Er Tab) 20 meq PO DAILY [facility] Last Admin: 05/25/17 10:05 Dose: 20 meq Rosuvastatin Calcium (Crestor) 10 mg PO HS [facility] Last Admin: 05/24/17 21:47 Dose: 10 mg Simethicone (Mylicon Chew Tab) 80 mg PO QID [facility] Last Admin: 05/25/17 13:00 Dose: 80 mg - Labs Labs: 05/25/17 06:36 05/25/17 06:36 PT 13.2 SECONDS (9.7-12.2) H 05/23/17 11:36 INR 1.2 05/23/17 11:36 APTT 44 SECONDS (21-34) H D 05/25/17 13:48 Attending/Attestation - Attestation I have personally seen and examined this patient.: Yes I have fully participated in the care of the patient.: Yes I have reviewed all pertinent clinical information, including history, physical exam and plan: Yes Notes (Text): 05/25/17 16:19 Patient seen with GI fellow on rounds. This is a 56 yo female with PMHx significant for HTN, HLD, DVT previously on eliquis who was admitted with CP/SOB , found to have PE, NSTEMI. Pancreatic head mass noted on EUS with multiple liver lesions - bx showing adenocarcinoma of liver, possible pancreatic primary. S/P EGD/EUS/Colonoscopy - pancreatic head mass noted, biopsied - results pending. s/p IVC filter, on heparin gtt. Pending pathology. Rest of plan as per pathology and diet as tolerated. Bowel regimen
[2017-05-25] MEDS: Heparin25000 units/250ml 1/2NS 25,000 UNITS/250 ML BAG IV PRN ×2 (12:40→15:38)
[2017-05-26] MEDS: Heparin25000 units/250ml 1/2NS 25,000 UNITS/250 ML BAG IV PRN (06:33)
[2017-05-26] MEDS: Lactated Ringer's 1,000 ML IV SCH (06:34)
[2017-05-26] MEDS: HYDROmorphone 1 mg/ml ISec IVP PRN ×4 (06:35→19:30)
[2017-05-26 07:24] LABS: BASO # 0.1 K/uL (0.0-0.2); BASO % 0.8 % (0.0-2.0); EOS # 0.3 K/uL (0.0-0.7); EOS % 3.2 % (0.0-4.0); LYMPH # 1.1 K/uL (1.0-4.3); LYMPH % 12.3 % (20.0-40.0); MEAN CELL VOLUME 88.5 fL (81.0-99.0); MEAN CORPUSCULAR HEMOGLOBIN 29.3 pg (27.0-31.0); MEAN PLATELET VOLUME 8.9 fL (7.2-11.7); MONO # 0.8 K/uL (0.0-0.8); MONO % 9.7 % (0.0-10.0); NEUT # 6.4 K/uL (1.8-7.0); RBC 3.07 Mil/uL (3.80-5.20); RED CELL DISTRIBUTION WIDTH 13.6 % (11.5-14.5); WHITE BLOOD COUNT 8.6 K/uL (4.8-10.8)
[2017-05-26 07:40] LABS: ALBUMIN 2.4 g/dL (3.5-5.0)
[2017-05-26 07:42] LABS: GFR AFRICAN-AMERICAN > 60; GFR NON-AFRICAN AMERICAN > 60
[2017-05-26 07:43] LABS: ALT/SGPT 42 U/L (9-52); AST/SGOT 53 U/L (14-36); BLOOD UREA NITROGEN 4 mg/dL (7-17); CALCIUM 8.2 mg/dl (8.6-10.4)
[2017-05-26 07:44] LABS: ALB/GLOB RATIO 0.9 (1.0-2.1); MAGNESIUM 1.6 mg/dL (1.6-2.3)
--- NOTE | 2017-05-26 08:52 | CP.PCM.PN ---
Subjective - Date & Time of Evaluation Date of Evaluation: 05/26/17 Time of Evaluation: 08:20 - Subjective Subjective: Patient was seen and examined. Yesterday I added on longer acting oxycontin XR 20 mg PO BID in combination with the Dilaudid IV 1mg q3hrs. She says that this seems to be working, she was able to sleep more. There is still pain in the epigastric area she says - not worse than before. So as mentioned previously she had an EGD, EUS, and Colonscopy on 05/24. A biopsy of a pancreatic mass/lesion was done and we are pending the results of this. She may need a mediport for chemotherapy if it is required. With reguards to her PE, DVT. She remains on the heparin ggt at this time. CBC is stable. The PTTs has been relatively stable so they haven't had to make major changes. She denied chest pain, denied shortness of breath, denied palpitations. On telemetry she is NSR with the HR in the 90s. The patient had a few short episodes of tacycardia that were sinus tach. Objective - Vital Signs/Intake and Output Vital Signs (last 24 hours): Temp Pulse Resp BP Pulse Ox 98.0 F 78 20 114/58 L 95 05/26/17 00:00 05/26/17 03:30 05/26/17 00:00 05/26/17 00:00 05/26/17 00:00 Intake and Output: 05/26/17 05/26/17 06:59 18:59 Intake Total 1450 858 Balance 1450 858 - Medications Medications: Current Medications Acetaminophen (Tylenol 325mg Tab) 650 mg PO Q6 PRN PRN Reason: Pain, Mild (1-3) Last Admin: 05/25/17 00:32 Dose: 650 mg Aspirin (Ecotrin) 81 mg PO DAILY [facility] Last Admin: 05/22/17 13:42 Dose: Not Given Hydromorphone HCl (Dilaudid) 1 mg IVP Q3H PRN PRN Reason: Pain, severe (8-10) Last Admin: 05/26/17 06:35 Dose: 1 mg Heparin Sodium/Sodium Chloride (Heparin 07347 Units/250ml 1/2 Normal Saline) 25 ,000 units in 250 mls @ 15.966 mls/hr IV .[id number] PRN; Protocol; 16 UNITS/KG/HR PRN Reason: PROTOCOL Last Admin: 05/26/17 06:33 Dose: 16 units/kg/hr, 15.966 mls/hr Losartan Potassium (Cozaar) 25 mg PO DAILY [facility] Last Admin: 05/25/17 10:05 Dose: 25 mg Ondansetron HCl (Zofran Inj) 4 mg IVP Q6 PRN PRN Reason: Nausea/Vomiting Oxycodone HCl (Oxycontin Extended Release Tab) 20 mg PO Q12 [facility] Last Admin: 05/25/17 21:22 Dose: 20 mg Pantoprazole Sodium (Protonix Ec Tab) 40 mg PO DAILY [facility] Last Admin: 05/25/17 10:05 Dose: 40 mg Potassium Chloride (K-Dur 20 Meq Er Tab) 20 meq PO DAILY [facility] Last Admin: 05/25/17 10:05 Dose: 20 meq Rosuvastatin Calcium (Crestor) 10 mg PO HS [facility] Last Admin: 05/25/17 21:22 Dose: 10 mg Simethicone (Mylicon Chew Tab) 80 mg PO QID [facility] Last Admin: 05/25/17 21:22 Dose: 80 mg - Labs Labs: 05/26/17 07:08 05/26/17 07:08 PT 13.2 SECONDS (9.7-12.2) H 05/23/17 11:36 INR 1.2 05/23/17 11:36 APTT 67 SECONDS (21-34) H 05/26/17 03:18 - Constitutional Appears: No Acute Distress - Head Exam Head Exam: NORMAL INSPECTION, NORMOCEPHALIC - Eye Exam Eye Exam: EOMI, Normal appearance - ENT Exam ENT Exam: Mucous Membranes Moist - Respiratory Exam Respiratory Exam: Clear to Ausculation Bilateral, NORMAL BREATHING PATTERN - Cardiovascular Exam Cardiovascular Exam: REGULAR RHYTHM - GI/Abdominal Exam GI & Abdominal Exam: Soft, Tenderness, Normal Bowel Sounds. absent: Distended, Firm, Guarding, Rigid Additional comments: Tenderness in the epigastric area. - Neurological Exam Neurological Exam: Alert, Awake, Oriented x3 Neuro motor strength exam: Left Upper Extremity: 5, Right Upper Extremity: 5 - Psychiatric Exam Psychiatric exam: Normal Affect, Normal Mood - Skin Skin Exam: Normal Color, Warm Assessment and Plan - Assessment and Plan (Free Text) Assessment: Assessment and Plan (1) Abdominal pain - likely a pancreatic CA with metastatic spread to the liver and lung. 05/26: Pain is better controlled today. She was started on long acting oxycontin yesterday. Pending the pancreatic biopsy to return. Per my discussion with Heme Oncology she may or may not need a mediport depending on the results. I explained this to the patient. 05/25: As mentioned previously she had an EGD, EUS, and colonscopy done yesterday. There was a pancreatic mass/lesion that has been biopsied. The previous liver biopsy on 05/17 has finalized and it's adenocarcinoma - and that liver biopsy report also suggested pancreatic billiary origin. She does have a very elevated CA-19-9 as well. She was in more pain today, already on IV dilaudid. Will add on oxycontin 20mg PO BID extended release. We could increase pain meds more however she does have a PE that we are treating. GI consult, Dr. Cobos, help appreicated Abdominal ultrasound- multiple hepatic masses, suspicious of mets; hepatosplenomegaly, fatty liver, thickened gallbladder wall; CBD: Measures 6mm, no stones and no dilation. Liver 20.1cm; diffuse increase echogenicity of the liver parenchyma, multiple ill-defined hypoechoic masses, largest approximately 3.8cm in greatest dimension; suspicious masses, spleen 13.2cm Ordered by GI: * CT triple phase liver protocol- numberous b/l lower lobe pulmonary nodules; hepatic lesions suspicious for mets, hepatomegaly, mild gallbladder wall thickening/perichoecystic edema; retroperitoneal lymph nodes measuring up to 14mm; diverticulosis * GGT 441 * AFP 3.0 * CEA 199.0 * Negative: Hep A IgM Ab, Hep Bs Antigen, Hep B core IgM Ab, Hep C Ab * IgG 840, IgA 195.5, IgM 50.2 * Negative: Anti-mitochondrial Ab, Anti-smooth muscle Ab, * Liver/Kid Mircosomes Ab: pending * Ca 19-9: >5000 Liver Bx: as per Dr. Cobos's note, liver biospy showed malignancy, not HCC. Stains will be performed and final results pending; procedure performed on . The liver biopys shows adenocarcinoma as well as probably the origin being that of the pancrease or billiary tree. * Stopped Lovenox on 05/22/17 Abd/Pelvic CT: multifocal hepatic mets; splenomegaly; layering gallbladder sludge; mural thickening gallbladder; upper retroperitoneal lymphadenopathy; nonacute sigmoid diverticular disease throughout majority of the colon; few scattered pulmonary nodules in B/L lung bases. Colonoscopy: * Ileum, mucosa- normal * Diverticulosis in sigmoid colon and descending colon * 3 to 8mm polyps in rectum, sigmoid and descending colon * internal hemorrhoids * no colon cancer identified * Recommended f/u colonoscopy in 6 months for polypectomy Endoscopy: * normal esophagus, duodenum * gastritis * small hiatus hernia * multiple metastatic lesions found in left and right lobe of liver * mass in genu of pancreas- fine needle bx performed * many abnormal lymph nodes visualized in celiac region, peripancreatic region, and destiny-hepatis region. (2) Liver lesion 05/26: LFT are stable, probably metastatic spread from pancreatic/billiary origin. 05/25: The biopy returned as adenocarcinoma, with report suggesting that it is a pancreatic/billiary origin. Biopsy of the pancreas is pending * Abdominal ultrasound- multiple hepatic masses, suspicious of mets; hepatosplenomegaly, fatty liver, thickened gallbladder wall; CBD: Measures 6mm, no stones and no dilation. Liver 20.1cm; diffuse increase echogenicity of the liver parenchyma, multiple ill-defined hypoechoic masses, largest approximately 3.8cm in greatest dimension; suspicious masses, spleen 13.2cm * CT: Mildly nodular hepatic contour. Borderline splenomegaly, hepatomegaly. 17mm probable splenule. Sub cm gastohepatic lymph nodes, nonspecific. 10mm probably lymph node, retroperitoneal lymph nodes measuring up to 14mm. * Stopped Lovenox on 05/22/17 * Started Heparin drip 05/22/17 (As per Dr. Thompson, will hold starting at 3am prior to procedure- EDG, EUS, Colonoscopy) Abd/Pelvic CT: multifocal hepatic mets; splenomegaly; layering gallbladder sludge; mural thickening gallbladder; upper retroperitoneal lymphadenopathy; nonacute sigmoid diverticular disease throughout majority of the colon; few scattered pulmonary nodules in B/L lung bases. Colonoscopy: * Ileum, mucosa- normal * Diverticulosis in sigmoid colon and descending colon * 3 to 8mm polyps in rectum, sigmoid and descending colon * internal hemorrhoids * no colon cancer identified * Recommended f/u colonoscopy in 6 months for polypectomy Endoscopy: * normal esophagus, duodenum * gastritis * small hiatus hernia * multiple metastatic lesions found in left and right lobe of liver * mass in genu of pancreas- fine needle bx performed * many abnormal lymph nodes visualized in celiac region, peripancreatic region, and destiny-hepatis region. (3) Pulmonary emboli 05/26: She wants to go back on lovenox so that she will not be tied to an IV pole and so she can shower. If she does not need mediport and no further procedures then we can switch back to lovenox and or PO Eliquis. 05/25: Patient denied having chest pain and denied shortness of breath. On telemetry HR was in the 80s to 90s and is NSR. She was previously on lovenox SC BID in theraputic doses but I changed over to heparin ggt. She also has an IVC filter. Curre SOB, chest pain * CTA: 1. Pulmonary emboli. 2. Pulmonary nodules, indeterminate. Metastatic disease not excluded. Followup as clinically warranted. 3. Liver lesions, indeterminate. Metastatic disease not excluded. Followup as clinically warranted. 4. Incidental/non-acute findings are described above. * Echo- normal size; EF 65-70%; LV diastolic function is normal; RV is normal size; RV systolic function is normal; LA size is normal; RA size is normal; MR is mild; TR is mild * Therapeutic Lovenox 100mg SC BID started--> discontinued 05/22/17 * Heparin Drip- started 05/22/17 * ASA 81mg PO daily * Hematology consult- Dr. Watkins, help appreciated * Pulmonology Consult - Dr. Johns, help appreciated * Pending liver biopsy of the left mass liver * Surgical consult, Dr. Dewey, help appreciated. * IVC filter placed on 05/22/17 * reevaluate thrombus and f/u LE duplex--> DVT of right gastroc. vein and superficial phlebitis of R GSV. * 05/02/17 LE Duplex: right acute thrombus of right gastrocnemius, greater saphenous, and varicose veins with reduction of the venous return. (4) NSTEMI (non-ST elevated myocardial infarction) 05/25: Again as mentioned before no chest pain, cardiac monitor technician is stable. Probably the +troponins are from the PE. Currently on heparin ggt at this time, statin, ASA on hold. EKG: NSR @ 90 BPM * EKG- nsr @90 * JANETTE x 3 positive---> 0.512 on admission--->1.0900--->0.965 * Lipid panel: TG 92, Chol 117, LDL 65, HDL 28 * ECHO- EF 65-70%; mild mitral and tricuspid regurgitation * Rn Renal consult- Dr. Ulloa, help appreciated * continue current management: Aspirin 81mg PO daily, Cozaar 25 mg PO daily, Crestor 10mg PO daily * Heart Healthy Diet * likely noncardiac elevation of troponins. * Stress Test: negative (5) Lung nodules 05/26: As mentioned previously - pending biopsy results 05/25: While it maybe too early to say, probably pancreatic/billiary CA in origin. Pending the pancreas biopsy results CTA: Pulmonary nodules, indeterminate. Metastatic disease not excluded. Followup as clinically warranted. 3. Liver lesions, indeterminate. Metastatic disease not excluded. Followup as clinically warranted. * Monitor * Pulmonology consult: Dr. Johns, help appreciated (4) Deep venous thrombosis of lower extremity 05/25: She previously was on PO Eliquis before she came in with the PE. She now has an IVC filter. For a while she was on lovenox, however we changed over to heparin since she's been having a lot of procedures. Surgical consult, Dr. Dewey, help appreciated. * As per surgery, patient received IVC filter on 05/22/17 * reevaluate thrombus and f/u LE duplex--> DVT of right gastroc. vein and superficial phlebitis of R GSV. * 05/02/17 LE Duplex: right acute thrombus of right gastrocnemius, greater saphenous, and varicose veins with reduction of the venous return. (5) HTN (hypertension) Cozaar 25mg PO daily Monitor BP (6) Hyperlipemia Assessment & Plan: Crestor 10mg PO QHS Lipid panel: TG 92, Chol 117, LDL 65, HDL 28 (8) UTI (urinary tract infection) Assessment & Plan: UA: + LE * Rocephin 1 gm IVP daily * Urine culture- no growth Repeat UA result (05/17/17): yellow hazy, 1+ protein, 1+ LE, 21 WBC, 25 Squam epith cells, Few Bacteria (9) Prophylactic measure Assessment & Plan: GI PPX: Protonix 40mg PO daily DVT PPX: Therapeutic lovenox--> discontinued; Currently on heparin ggt
[2017-05-26] MEDS: Simethicone 80 mg Chewtab PO SCH ×4 (09:27→21:52)
[2017-05-26] MEDS: Pantoprazole 40 mg EC Tab PO SCH (09:27)
[2017-05-26] MEDS: Potassium Chloride 20 mEq ER Tab PO SCH (09:27)
[2017-05-26] MEDS: oxyCODONE 20 mg ER Tab (oxyCONTIN) PO SCH ×2 (09:28→21:52)
--- NOTE | 2017-05-26 09:47 | CP.PCM.PN ---
<Bunny Johnson - Last Filed: 05/26/17 13:10> Subjective - Date & Time of Evaluation Date of Evaluation: 05/26/17 Time of Evaluation: 08:50 - Subjective Subjective: PGY5 GI Fellow Progress Note Patient seen and examined bedside this morning. Still c/o epigastric discomfort , improved with analgesics. No new events overnight. 12 system ROS performed and negative except where stated. Objective - Vital Signs/Intake and Output Vital Signs (last 24 hours): Temp Pulse Resp BP Pulse Ox 98.0 F 78 20 117/71 95 05/26/17 07:30 05/26/17 07:30 05/26/17 07:30 05/26/17 07:30 05/26/17 07:30 Intake and Output: 05/26/17 05/26/17 06:59 18:59 Intake Total 1450 858 Balance 1450 858 - Medications Medications: Current Medications Acetaminophen (Tylenol 325mg Tab) 650 mg PO Q6 PRN PRN Reason: Pain, Mild (1-3) Last Admin: 05/25/17 00:32 Dose: 650 mg Aspirin (Ecotrin) 81 mg PO DAILY [facility] Last Admin: 05/22/17 13:42 Dose: Not Given Hydromorphone HCl (Dilaudid) 1 mg IVP Q3H PRN PRN Reason: Pain, severe (8-10) Last Admin: 05/26/17 06:35 Dose: 1 mg Heparin Sodium/Sodium Chloride (Heparin 02053 Units/250ml 1/2 Normal Saline) 25 ,000 units in 250 mls @ 15.966 mls/hr IV .[id number] PRN; Protocol; 16 UNITS/KG/HR PRN Reason: PROTOCOL Last Admin: 05/26/17 06:33 Dose: 16 units/kg/hr, 15.966 mls/hr Losartan Potassium (Cozaar) 25 mg PO DAILY [facility] Last Admin: 05/26/17 09:28 Dose: 25 mg Ondansetron HCl (Zofran Inj) 4 mg IVP Q6 PRN PRN Reason: Nausea/Vomiting Oxycodone HCl (Oxycontin Extended Release Tab) 20 mg PO Q12 [facility] Last Admin: 05/26/17 09:28 Dose: 20 mg Pantoprazole Sodium (Protonix Ec Tab) 40 mg PO DAILY [facility] Last Admin: 05/26/17 09:27 Dose: 40 mg Potassium Chloride (K-Dur 20 Meq Er Tab) 20 meq PO DAILY [facility] Last Admin: 05/26/17 09:27 Dose: 20 meq Rosuvastatin Calcium (Crestor) 10 mg PO HS [facility] Last Admin: 05/25/17 21:22 Dose: 10 mg Simethicone (Mylicon Chew Tab) 80 mg PO QID [facility] Last Admin: 05/26/17 09:27 Dose: 80 mg - Labs Labs: 05/26/17 07:08 05/26/17 07:08 PT 13.2 SECONDS (9.7-12.2) H 05/23/17 11:36 INR 1.2 05/23/17 11:36 APTT 67 SECONDS (21-34) H 05/26/17 03:18 - Constitutional Appears: Non-toxic, No Acute Distress - Eye Exam Eye Exam: EOMI, PERRL - ENT Exam ENT Exam: Mucous Membranes Moist - Respiratory Exam Respiratory Exam: Clear to Ausculation Bilateral. absent: Rales, Rhonchi, Wheezes - Cardiovascular Exam Cardiovascular Exam: RRR, +S1, +S2 - GI/Abdominal Exam GI & Abdominal Exam: Soft, Tenderness, Normal Bowel Sounds. absent: Distended, Firm, Guarding, Rigid, Organomegaly - Extremities Exam Extremities Exam: Normal Inspection. absent: Pedal Edema - Neurological Exam Neurological Exam: Alert, Awake, Oriented x3 - Psychiatric Exam Psychiatric exam: Normal Affect, Normal Mood - Skin Skin Exam: Dry, Warm Assessment and Plan - Assessment and Plan (Free Text) Assessment: Patient is a 56yo female with PMHx significant for HTN, HLD, DVT previously on eliquis who was admitted with CP/SOB, found to have PE, NSTEMI. GI consulted for chronic abdominal pain. -Pancreatic head mass noted on EUS with multiple liver lesions - bx showing adenocarcinoma of liver, possible pancreatic primary Plan: -S/P EGD/EUS/Colonoscopy - pancreatic head mass noted, biopsied - results pending -S/P IVC filter placement -Remains on anticoagulation as ordered, will transition to Lovenox per primary service -Continue PPI -Miralax ordered, will benefit from continuation as she is on narcotic medications for ongoing discomfort -Diet as tolerated -Plan per pathology results <Alondra Britton MD - Last Filed: 05/26/17 13:34> Objective - Vital Signs/Intake and Output Vital Signs (last 24 hours): Temp Pulse Resp BP Pulse Ox 98.0 F 80 20 117/71 95 05/26/17 07:30 05/26/17 08:00 05/26/17 07:30 05/26/17 07:30 05/26/17 07:30 Intake and Output: 05/26/17 05/26/17 06:59 18:59 Intake Total 1450 858 Balance 1450 858 - Medications Medications: Current Medications Acetaminophen (Tylenol 325mg Tab) 650 mg PO Q6 PRN PRN Reason: Pain, Mild (1-3) Last Admin: 05/25/17 00:32 Dose: 650 mg Aspirin (Ecotrin) 81 mg PO DAILY [facility] Last Admin: 05/22/17 13:42 Dose: Not Given Hydromorphone HCl (Dilaudid) 1 mg IVP Q3H PRN PRN Reason: Pain, severe (8-10) Last Admin: 05/26/17 10:12 Dose: 1 mg Heparin Sodium/Sodium Chloride (Heparin 65218 Units/250ml 1/2 Normal Saline) 25 ,000 units in 250 mls @ 15.966 mls/hr IV .[id number] PRN; Protocol; 16 UNITS/KG/HR PRN Reason: PROTOCOL Last Admin: 05/26/17 06:33 Dose: 16 units/kg/hr, 15.966 mls/hr Losartan Potassium (Cozaar) 25 mg PO DAILY [facility] Last Admin: 05/26/17 09:28 Dose: 25 mg Ondansetron HCl (Zofran Inj) 4 mg IVP Q6 PRN PRN Reason: Nausea/Vomiting Oxycodone HCl (Oxycontin Extended Release Tab) 20 mg PO Q12 [facility] Last Admin: 05/26/17 09:28 Dose: 20 mg Pantoprazole Sodium (Protonix Ec Tab) 40 mg PO DAILY [facility] Last Admin: 05/26/17 09:27 Dose: 40 mg Polyethylene Glycol (Miralax) 17 gm PO DAILY [facility] Last Admin: 05/26/17 10:09 Dose: 17 gm Potassium Chloride (K-Dur 20 Meq Er Tab) 20 meq PO DAILY [facility] Last Admin: 05/26/17 09:27 Dose: 20 meq Rosuvastatin Calcium (Crestor) 10 mg PO HS [facility] Last Admin: 05/25/17 21:22 Dose: 10 mg Simethicone (Mylicon Chew Tab) 80 mg PO QID [facility] Last Admin: 05/26/17 09:27 Dose: 80 mg - Labs Labs: 05/26/17 07:08 05/26/17 07:08 PT 13.2 SECONDS (9.7-12.2) H 05/23/17 11:36 INR 1.2 05/23/17 11:36 APTT 46 SECONDS (21-34) H D 05/26/17 10:59 Attending/Attestation - Attestation I have personally seen and examined this patient.: Yes I have fully participated in the care of the patient.: Yes I have reviewed all pertinent clinical information, including history, physical exam and plan: Yes Notes (Text): 05/26/17 13:34 Patient seen with GI fellow on rounds. This is a 56 yo female with PMHx significant for HTN, HLD, DVT previously on eliquis who was admitted with CP/SOB , found to have PE, NSTEMI. Pancreatic head mass noted on EUS with multiple liver lesions - bx showing adenocarcinoma of liver, possible pancreatic primary. S/P EGD/EUS/Colonoscopy - pancreatic head mass noted, biopsied - results pending. s/p IVC filter, on heparin gtt. Pending pathology. Rest of plan as per pathology and diet as tolerated. Bowel regimen
[2017-05-26] MEDS ORDERED: POLYETHYLENE GLYCOL 3350 17 GM/Dose PACKET PO SCH (10:00)
[2017-05-27] MEDS: Heparin25000 units/250ml 1/2NS 25,000 UNITS/250 ML BAG IV PRN ×2 (01:23→19:07)
--- NOTE | 2017-05-27 01:27 | CP.PCM.PN ---
Subjective - Date & Time of Evaluation Date of Evaluation: 05/24/17 Time of Evaluation: 12:05 - Subjective Subjective: Has abdominal bloating Objective - Vital Signs/Intake and Output Vital Signs (last 24 hours): Temp Pulse Resp BP Pulse Ox 98.3 F 80 20 103/62 95 05/26/17 23:00 05/26/17 23:30 05/26/17 23:00 05/26/17 23:00 05/26/17 23:00 Intake and Output: 05/26/17 05/27/17 18:59 06:59 Intake Total 858 250 Balance 858 250 - Medications Medications: Current Medications Acetaminophen (Tylenol 325mg Tab) 650 mg PO Q6 PRN PRN Reason: Pain, Mild (1-3) Last Admin: 05/25/17 00:32 Dose: 650 mg Aspirin (Ecotrin) 81 mg PO DAILY [facility] Last Admin: 05/22/17 13:42 Dose: Not Given Hydromorphone HCl (Dilaudid) 1 mg IVP Q3H PRN PRN Reason: Pain, severe (8-10) Last Admin: 05/26/17 19:30 Dose: 1 mg Heparin Sodium/Sodium Chloride (Heparin 74743 Units/250ml 1/2 Normal Saline) 25 ,000 units in 250 mls @ 15.966 mls/hr IV .[id number] PRN; Protocol; 16 UNITS/KG/HR PRN Reason: PROTOCOL Last Admin: 05/27/17 01:23 Dose: 16 units/kg/hr, 15.966 mls/hr Losartan Potassium (Cozaar) 25 mg PO DAILY [facility] Last Admin: 05/26/17 09:28 Dose: 25 mg Ondansetron HCl (Zofran Inj) 4 mg IVP Q6 PRN PRN Reason: Nausea/Vomiting Oxycodone HCl (Oxycontin Extended Release Tab) 20 mg PO Q12 [facility] Last Admin: 05/26/17 21:52 Dose: 20 mg Pantoprazole Sodium (Protonix Ec Tab) 40 mg PO DAILY [facility] Last Admin: 05/26/17 09:27 Dose: 40 mg Polyethylene Glycol (Miralax) 17 gm PO DAILY [facility] Last Admin: 05/26/17 10:09 Dose: 17 gm Potassium Chloride (K-Dur 20 Meq Er Tab) 20 meq PO DAILY [facility] Last Admin: 05/26/17 09:27 Dose: 20 meq Rosuvastatin Calcium (Crestor) 10 mg PO HS [facility] Last Admin: 05/26/17 21:53 Dose: 10 mg Simethicone (Mylicon Chew Tab) 80 mg PO QID [facility] Last Admin: 05/26/17 21:52 Dose: 80 mg - Labs Labs: 05/26/17 07:08 05/26/17 07:08 PT 13.2 SECONDS (9.7-12.2) H 05/23/17 11:36 INR 1.2 05/23/17 11:36 APTT 46 SECONDS (21-34) H D 05/26/17 10:59 - Head Exam Head Exam: ATRAUMATIC - Eye Exam Eye Exam: Normal appearance - ENT Exam ENT Exam: Mucous Membranes Dry - Respiratory Exam Respiratory Exam: NORMAL BREATHING PATTERN - Cardiovascular Exam Cardiovascular Exam: +S1, +S2 - GI/Abdominal Exam GI & Abdominal Exam: Normal Bowel Sounds - Extremities Exam Extremities Exam: Normal Inspection Assessment and Plan (1) Pulmonary emboli Assessment & Plan: on anticoagulation Status: Acute (2) Lesion of lung Assessment & Plan: ?metastatic disease Status: Acute (3) Liver lesion Assessment & Plan: metastatic disease ?GI primary Status: Acute (4) Anemia Assessment & Plan: chronic disease Status: Acute (5) Coagulopathy Assessment & Plan: anticoagulation Status: Acute (6) Tobacco abuse Assessment & Plan: smoking cessation Status: Acute
--- NOTE | 2017-05-27 01:30 | CP.PCM.PN ---
Subjective - Date & Time of Evaluation Date of Evaluation: 05/25/17 Time of Evaluation: 19:00 - Subjective Subjective: Has abdominal bloating EUS shows pancreatic mass s/p biopsy Objective - Vital Signs/Intake and Output Vital Signs (last 24 hours): Temp Pulse Resp BP Pulse Ox 98.3 F 80 20 103/62 95 05/26/17 23:00 05/26/17 23:30 05/26/17 23:00 05/26/17 23:00 05/26/17 23:00 Intake and Output: 05/26/17 05/27/17 18:59 06:59 Intake Total 858 250 Balance 858 250 - Medications Medications: Current Medications Acetaminophen (Tylenol 325mg Tab) 650 mg PO Q6 PRN PRN Reason: Pain, Mild (1-3) Last Admin: 05/25/17 00:32 Dose: 650 mg Aspirin (Ecotrin) 81 mg PO DAILY [facility] Last Admin: 05/22/17 13:42 Dose: Not Given Hydromorphone HCl (Dilaudid) 1 mg IVP Q3H PRN PRN Reason: Pain, severe (8-10) Last Admin: 05/26/17 19:30 Dose: 1 mg Heparin Sodium/Sodium Chloride (Heparin 80229 Units/250ml 1/2 Normal Saline) 25 ,000 units in 250 mls @ 15.966 mls/hr IV .[id number] PRN; Protocol; 16 UNITS/KG/HR PRN Reason: PROTOCOL Last Admin: 05/27/17 01:23 Dose: 16 units/kg/hr, 15.966 mls/hr Losartan Potassium (Cozaar) 25 mg PO DAILY [facility] Last Admin: 05/26/17 09:28 Dose: 25 mg Ondansetron HCl (Zofran Inj) 4 mg IVP Q6 PRN PRN Reason: Nausea/Vomiting Oxycodone HCl (Oxycontin Extended Release Tab) 20 mg PO Q12 [facility] Last Admin: 05/26/17 21:52 Dose: 20 mg Pantoprazole Sodium (Protonix Ec Tab) 40 mg PO DAILY [facility] Last Admin: 05/26/17 09:27 Dose: 40 mg Polyethylene Glycol (Miralax) 17 gm PO DAILY [facility] Last Admin: 05/26/17 10:09 Dose: 17 gm Potassium Chloride (K-Dur 20 Meq Er Tab) 20 meq PO DAILY [facility] Last Admin: 05/26/17 09:27 Dose: 20 meq Rosuvastatin Calcium (Crestor) 10 mg PO HS [facility] Last Admin: 05/26/17 21:53 Dose: 10 mg Simethicone (Mylicon Chew Tab) 80 mg PO QID [facility] Last Admin: 05/26/17 21:52 Dose: 80 mg - Labs Labs: 05/26/17 07:08 05/26/17 07:08 PT 13.2 SECONDS (9.7-12.2) H 05/23/17 11:36 INR 1.2 05/23/17 11:36 APTT 46 SECONDS (21-34) H D 05/26/17 10:59 - Head Exam Head Exam: ATRAUMATIC - Eye Exam Eye Exam: Normal appearance - ENT Exam ENT Exam: Mucous Membranes Dry - Respiratory Exam Respiratory Exam: NORMAL BREATHING PATTERN - Cardiovascular Exam Cardiovascular Exam: +S1, +S2 - GI/Abdominal Exam GI & Abdominal Exam: Normal Bowel Sounds - Extremities Exam Extremities Exam: Normal Inspection Assessment and Plan (1) Pulmonary emboli Assessment & Plan: provoked from malignancy on anticoagulation Status: Acute (2) Lesion of lung Assessment & Plan: ?metastatic disease Status: Acute (3) Liver lesion Assessment & Plan: 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
[2017-05-27] MEDS: HYDROmorphone 1 mg/ml ISec IVP PRN ×4 (05:54→18:26)
[2017-05-27 07:38] LABS: BASO # 0.1 K/uL (0.0-0.2); EOS # 0.4 K/uL (0.0-0.7); HEMOGLOBIN 9.3 g/dL (11.0-16.0); LYMPH # 1.1 K/uL (1.0-4.3); LYMPH % 12.5 % (20.0-40.0); MEAN CELL VOLUME 88.8 fL (81.0-99.0); MEAN CORPUSCULAR HEMOGLOBIN 29.6 pg (27.0-31.0); MEAN CORPUSCULAR HGB CONC 33.4 g/dL (33.0-37.0); MEAN PLATELET VOLUME 9.3 fL (7.2-11.7); NEUT # 6.3 K/uL (1.8-7.0); NEUT % 71.5 % (50.0-75.0); RBC 3.14 Mil/uL (3.80-5.20); RED CELL DISTRIBUTION WIDTH 13.8 % (11.5-14.5); WHITE BLOOD COUNT 8.8 K/uL (4.8-10.8)
--- NOTE | 2017-05-27 07:50 | CP.PCM.PN ---
Subjective - Date & Time of Evaluation Date of Evaluation: 05/27/17 Time of Evaluation: 09:47 - Subjective Subjective: Cardiology progress note for Dr. Ulloa Patient seen and examined at bedside. Patient had no acute events overnight and no acute events over the weekend as per nursing. Patient denied any acute events of headache, dizziness, chest pain, palpitations, SOB, cough, nausea, vomiting, bowel/bladder complaints, pain/swelling in her legs bilaterally. She has had a decreased appetite and continues to have some mild abdominal pain. Objective - Vital Signs/Intake and Output Vital Signs (last 24 hours): Temp Pulse Resp BP Pulse Ox 98.3 F 78 20 103/62 95 05/26/17 23:00 05/27/17 03:30 05/26/17 23:00 05/26/17 23:00 05/26/17 23:00 Intake and Output: 05/27/17 05/27/17 06:59 18:59 Intake Total 250 Balance 250 - Medications Medications: Current Medications Acetaminophen (Tylenol 325mg Tab) 650 mg PO Q6 PRN PRN Reason: Pain, Mild (1-3) Last Admin: 05/25/17 00:32 Dose: 650 mg Aspirin (Ecotrin) 81 mg PO DAILY [facility] Last Admin: 05/22/17 13:42 Dose: Not Given Hydromorphone HCl (Dilaudid) 1 mg IVP Q3H PRN PRN Reason: Pain, severe (8-10) Last Admin: 05/27/17 05:54 Dose: 1 mg Heparin Sodium/Sodium Chloride (Heparin 81369 Units/250ml 1/2 Normal Saline) 25 ,000 units in 250 mls @ 15.966 mls/hr IV .[id number] PRN; Protocol; 16 UNITS/KG/HR PRN Reason: PROTOCOL Last Admin: 05/27/17 01:23 Dose: 16 units/kg/hr, 15.966 mls/hr Losartan Potassium (Cozaar) 25 mg PO DAILY [facility] Last Admin: 05/26/17 09:28 Dose: 25 mg Ondansetron HCl (Zofran Inj) 4 mg IVP Q6 PRN PRN Reason: Nausea/Vomiting Oxycodone HCl (Oxycontin Extended Release Tab) 20 mg PO Q12 [facility] Last Admin: 05/26/17 21:52 Dose: 20 mg Pantoprazole Sodium (Protonix Ec Tab) 40 mg PO DAILY [facility] Last Admin: 05/26/17 09:27 Dose: 40 mg Polyethylene Glycol (Miralax) 17 gm PO DAILY [facility] Last Admin: 05/26/17 10:09 Dose: 17 gm Potassium Chloride (K-Dur 20 Meq Er Tab) 20 meq PO DAILY [facility] Last Admin: 05/26/17 09:27 Dose: 20 meq Rosuvastatin Calcium (Crestor) 10 mg PO HS [facility] Last Admin: 05/26/17 21:53 Dose: 10 mg Simethicone (Mylicon Chew Tab) 80 mg PO QID [facility] Last Admin: 05/26/17 21:52 Dose: 80 mg - Labs Labs: 05/27/17 07:19 05/26/17 07:08 PT 13.2 SECONDS (9.7-12.2) H 05/23/17 11:36 INR 1.2 05/23/17 11:36 APTT 62 SECONDS (21-34) H D 05/27/17 07:19 - Constitutional Appears: No Acute Distress - Head Exam Head Exam: ATRAUMATIC, NORMAL INSPECTION, NORMOCEPHALIC - Eye Exam Eye Exam: EOMI, Normal appearance. absent: Conjunctival injection, Scleral icterus Pupil Exam: NORMAL ACCOMODATION - ENT Exam ENT Exam: Mucous Membranes Moist - Neck Exam Neck Exam: Full ROM, Normal Inspection - Respiratory Exam Respiratory Exam: Clear to Ausculation Bilateral, NORMAL BREATHING PATTERN. absent: Accessory Muscle Use, Rales, Rhonchi, Wheezes, Respiratory Distress - Cardiovascular Exam Cardiovascular Exam: REGULAR RHYTHM, RRR, +S1, +S2. absent: Murmur - GI/Abdominal Exam GI & Abdominal Exam: Soft, Tenderness (to palpation), Normal Bowel Sounds, Organomegaly. absent: Firm, Guarding - Extremities Exam Extremities Exam: Normal Capillary Refill, Normal Inspection. absent: Pedal Edema - Neurological Exam Neurological Exam: Alert, Awake, Oriented x3 - Psychiatric Exam Psychiatric exam: Normal Affect, Normal Mood - Skin Skin Exam: Dry, Intact, Normal Color, Warm Assessment and Plan - Assessment and Plan (Free Text) Assessment: 56 year old female PMHx HTN, HLD, RLE DVT on eliquis (04/2017) presented on 05/14 with chest pain, headache, and SOB for 1 day. Cardiology was originally consulted for NSTEMI and reconsulted for cardiac clearance for GI procedures Plan: -POD#5 IVC filter placement -s/p EGD and colonoscopy this AM -Echo 05/14/17: normal size EF 65-70% LV diastolic function is normal RV is normal size RV systolic function is normal LA size is normal RA size is normal MR is mild TR is mild -Elevated troponins 0.512 on admission -> 1.0900 -> 0.965 likely noncardiac elevation of enzymes -No acute ST elevations on EKG -Exercise stress test 05/17 was negative recommend outpatient lexiscan -Lipid panel T Cholesterol: 117 LDL: 65 HDL: 28 -Continue current management heparin gtt ASA 81mg po daily - on hold Cozaar 25mg po daily Crestor 10mg po hs Case discussed with Dr. Laila Overton PGY2
[2017-05-27 07:51] LABS: ALBUMIN 2.4 g/dL (3.5-5.0)
[2017-05-27 07:54] LABS: AST/SGOT 61 U/L (14-36); GFR AFRICAN-AMERICAN > 60; GFR NON-AFRICAN AMERICAN > 60
[2017-05-27 07:55] LABS: ALB/GLOB RATIO 0.9 (1.0-2.1); ALT/SGPT 43 U/L (9-52); BLOOD UREA NITROGEN 5 mg/dL (7-17)
[2017-05-27 07:56] LABS: CALCIUM 8.3 mg/dl (8.6-10.4); MAGNESIUM 1.7 mg/dL (1.6-2.3)
[2017-05-27] MEDS: Potassium Chloride 20 mEq ER Tab PO SCH (09:10)
[2017-05-27] MEDS: Simethicone 80 mg Chewtab PO SCH ×4 (09:10→22:47)
[2017-05-27] MEDS: oxyCODONE 20 mg ER Tab (oxyCONTIN) PO SCH ×2 (09:10→22:47)
[2017-05-27] MEDS: Pantoprazole 40 mg EC Tab PO SCH (09:10)
--- NOTE | 2017-05-27 09:12 | CP.PCM.PN ---
<JayShaniqua - Last Filed: 05/27/17 10:45> Subjective - Date & Time of Evaluation Date of Evaluation: 05/27/17 Time of Evaluation: 09:08 - Subjective Subjective: Gastroenterology Fellow/PGY5 Progress Note Patient notes improved abdominal pain. Tolerating heart healthy diet. Notes diarrhea daily over the weekend. A 12-point review of systems negative except for as above. Objective - Vital Signs/Intake and Output Vital Signs (last 24 hours): Temp Pulse Resp BP Pulse Ox 98.5 F 86 18 116/68 96 05/27/17 08:52 05/27/17 08:52 05/27/17 08:52 05/27/17 08:52 05/27/17 08:52 Intake and Output: 05/27/17 05/27/17 06:59 18:59 Intake Total 250 128 Balance 250 128 - Medications Medications: Current Medications Acetaminophen (Tylenol 325mg Tab) 650 mg PO Q6 PRN PRN Reason: Pain, Mild (1-3) Last Admin: 05/25/17 00:32 Dose: 650 mg Aspirin (Ecotrin) 81 mg PO DAILY [facility] Last Admin: 05/22/17 13:42 Dose: Not Given Hydromorphone HCl (Dilaudid) 1 mg IVP Q3H PRN PRN Reason: Pain, severe (8-10) Last Admin: 05/27/17 05:54 Dose: 1 mg Heparin Sodium/Sodium Chloride (Heparin 59540 Units/250ml 1/2 Normal Saline) 25 ,000 units in 250 mls @ 15.966 mls/hr IV .[id number] PRN; Protocol; 16 UNITS/KG/HR PRN Reason: PROTOCOL Last Admin: 05/27/17 01:23 Dose: 16 units/kg/hr, 15.966 mls/hr Losartan Potassium (Cozaar) 25 mg PO DAILY [facility] Last Admin: 05/26/17 09:28 Dose: 25 mg Ondansetron HCl (Zofran Inj) 4 mg IVP Q6 PRN PRN Reason: Nausea/Vomiting Oxycodone HCl (Oxycontin Extended Release Tab) 20 mg PO Q12 [facility] Last Admin: 05/26/17 21:52 Dose: 20 mg Pantoprazole Sodium (Protonix Ec Tab) 40 mg PO DAILY [facility] Last Admin: 05/26/17 09:27 Dose: 40 mg Polyethylene Glycol (Miralax) 17 gm PO DAILY [facility] Last Admin: 05/26/17 10:09 Dose: 17 gm Potassium Chloride (K-Dur 20 Meq Er Tab) 20 meq PO DAILY [facility] Last Admin: 05/26/17 09:27 Dose: 20 meq Rosuvastatin Calcium (Crestor) 10 mg PO HS [facility] Last Admin: 05/26/17 21:53 Dose: 10 mg Simethicone (Mylicon Chew Tab) 80 mg PO QID [facility] Last Admin: 05/26/17 21:52 Dose: 80 mg - Labs Labs: 05/27/17 07:19 05/27/17 07:19 PT 13.2 SECONDS (9.7-12.2) H 05/23/17 11:36 INR 1.2 05/23/17 11:36 APTT 62 SECONDS (21-34) H D 05/27/17 07:19 - Constitutional Appears: Non-toxic, No Acute Distress - Head Exam Head Exam: ATRAUMATIC, NORMOCEPHALIC - Eye Exam Eye Exam: EOMI, PERRL Pupil Exam: PERRL. absent: Miosis, Mydriatic - ENT Exam ENT Exam: Mucous Membranes Moist, Normal Oropharynx - Neck Exam Neck Exam: Full ROM, Normal Inspection - Respiratory Exam Respiratory Exam: Clear to Ausculation Bilateral. absent: Rales, Rhonchi, Wheezes - Cardiovascular Exam Cardiovascular Exam: RRR, +S1, +S2. absent: Gallop, Rubs - GI/Abdominal Exam GI & Abdominal Exam: Soft, Normal Bowel Sounds. absent: Distended, Firm, Guarding, Rigid, Tenderness, Organomegaly - Extremities Exam Extremities Exam: Normal Inspection. absent: Pedal Edema - Neurological Exam Neurological Exam: Alert, Awake - Psychiatric Exam Psychiatric exam: Normal Affect, Normal Mood - Skin Skin Exam: Dry, Intact, Normal Color, Warm Assessment and Plan - Assessment and Plan (Free Text) Assessment: 56 year old female with history of Hypertension, Hyperlipidemia, Alcohol Abuse, and right lower extremity DVT (05/02/17) previously on Eliquis presenting with shortness of breath, chest pain, and abdominal pain. Active treatment of PE/DVT on heparin drip, pulmonary nodules on CT angiography, newly diagnosed cirrhosis with multiple hepatic metastases, POD3 (05/24) EGD/EUS/colonoscopy gastritis, descending/sigmoid diverticulosis, descending/sigmoid/rectal polyps, confirming pancreatic genu [id number] mass status post FNB with associated peripancreatic/ destiny hepatis lymphadenopathy, and pancreatic dilatation. Prior colonoscopy three years ago at [place] endorsed to be normal. Plan: >will follow up EUS pancreas FNB pathology >Hem/Onc managing- appreciate recommendations >on Heparin drip for PE/DVT >continue heart healthy diet >decreased Miralax daily to PRN due to diarrhea >Thank you for opportunity to participate in the care of this patient. Please contact with questions or concerns. <Alondra Britton MD - Last Filed: 05/27/17 11:22> Objective - Vital Signs/Intake and Output Vital Signs (last 24 hours): Temp Pulse Resp BP Pulse Ox 98.5 F 86 18 116/68 96 05/27/17 08:52 05/27/17 08:52 05/27/17 08:52 05/27/17 08:52 05/27/17 08:52 Intake and Output: 05/27/17 05/27/17 06:59 18:59 Intake Total 250 128 Balance 250 128 - Medications Medications: Current Medications Acetaminophen (Tylenol 325mg Tab) 650 mg PO Q6 PRN PRN Reason: Pain, Mild (1-3) Last Admin: 05/25/17 00:32 Dose: 650 mg Aspirin (Ecotrin) 81 mg PO DAILY [facility] Last Admin: 05/22/17 13:42 Dose: Not Given Hydromorphone HCl (Dilaudid) 1 mg IVP Q3H PRN PRN Reason: Pain, severe (8-10) Last Admin: 05/27/17 08:56 Dose: 1 mg Heparin Sodium/Sodium Chloride (Heparin 21893 Units/250ml 1/2 Normal Saline) 25 ,000 units in 250 mls @ 15.966 mls/hr IV .[id number] PRN; Protocol; 16 UNITS/KG/HR PRN Reason: PROTOCOL Last Admin: 05/27/17 01:23 Dose: 16 units/kg/hr, 15.966 mls/hr Losartan Potassium (Cozaar) 25 mg PO DAILY [facility] Last Admin: 05/27/17 09:10 Dose: 25 mg Ondansetron HCl (Zofran Inj) 4 mg IVP Q6 PRN PRN Reason: Nausea/Vomiting Oxycodone HCl (Oxycontin Extended Release Tab) 20 mg PO Q12 [facility] Last Admin: 05/27/17 09:10 Dose: 20 mg Pantoprazole Sodium (Protonix Ec Tab) 40 mg PO DAILY [facility] Last Admin: 05/27/17 09:10 Dose: 40 mg Polyethylene Glycol (Miralax) 17 gm PO DAILY PRN PRN Reason: Constipation Potassium Chloride (K-Dur 20 Meq Er Tab) 20 meq PO DAILY [facility] Last Admin: 05/27/17 09:10 Dose: 20 meq Rosuvastatin Calcium (Crestor) 10 mg PO HS [facility] Last Admin: 05/26/17 21:53 Dose: 10 mg Simethicone (Mylicon Chew Tab) 80 mg PO QID [facility] Last Admin: 05/27/17 09:10 Dose: 80 mg - Labs Labs: 05/27/17 07:19 05/27/17 07:19 PT 13.2 SECONDS (9.7-12.2) H 05/23/17 11:36 INR 1.2 05/23/17 11:36 APTT 62 SECONDS (21-34) H D 05/27/17 07:19 Attending/Attestation - Attestation I have personally seen and examined this patient.: Yes I have fully participated in the care of the patient.: Yes I have reviewed all pertinent clinical information, including history, physical exam and plan: Yes Notes (Text): 05/27/17 11:21 Patient seen with GI fellow on rounds. This is a 56 yo female with PMHx significant for HTN, HLD, DVT previously on eliquis who was admitted with CP/SOB , found to have PE, NSTEMI. Pancreatic head mass noted on EUS with multiple liver lesions - bx showing adenocarcinoma of liver, possible pancreatic primary. S/P EGD/EUS/Colonoscopy - pancreatic head mass noted, biopsied - results pending. s/p IVC filter, on heparin gtt. Pending pathology. Rest of plan as per pathology and oncology and diet as tolerated. Will sign off now. Please recall prn. Thank you for letting us participate in the care of your patient
[2017-05-27] MEDS ORDERED: POLYETHYLENE GLYCOL 3350 17 GM/Dose PACKET PO PRN (09:18)
[2017-05-27] MEDS ORDERED: Potassium Chloride 20 mEq ER Tab PO ONE (15:57)
--- NOTE | 2017-05-27 16:02 | CP.PCM.PN ---
<Roel Mercedes Sadaf - Last Filed: 05/27/17 15:58> Subjective - Date & Time of Evaluation Date of Evaluation: 05/27/17 Time of Evaluation: 07:40 - Subjective Subjective: Medicine note (PGY 1) : Dr. Dozier's service Patient was seen and examined at bedside. Patient was resting comfortably in her bed. Patient had no acute events overnight and reports that she is doing well. Patient denies chest pain, sob, nausea, vomiting, fever, chills, diarrhea but continues to report mild abdominal pain which she describes as " Gas Pain" and decreased appetite. Otherwise, patient has no new complaints. After discussion with her team care, patient is agreeable to a mediport placement. Patient is ambulating and tolerating diet. Objective - Vital Signs/Intake and Output Vital Signs (last 24 hours): Temp Pulse Resp BP Pulse Ox 97.4 F L 78 20 108/50 L 96 05/27/17 15:00 05/27/17 15:00 05/27/17 15:00 05/27/17 15:00 05/27/17 15:00 Intake and Output: 05/27/17 05/27/17 06:59 18:59 Intake Total 250 128 Balance 250 128 - Medications Medications: Current Medications Acetaminophen (Tylenol 325mg Tab) 650 mg PO Q6 PRN PRN Reason: Pain, Mild (1-3) Last Admin: 05/25/17 00:32 Dose: 650 mg Aspirin (Ecotrin) 81 mg PO DAILY [facility] Last Admin: 05/22/17 13:42 Dose: Not Given Hydromorphone HCl (Dilaudid) 1 mg IVP Q3H PRN PRN Reason: Pain, severe (8-10) Last Admin: 05/27/17 15:15 Dose: 1 mg Heparin Sodium/Sodium Chloride (Heparin 55426 Units/250ml 1/2 Normal Saline) 25 ,000 units in 250 mls @ 15.966 mls/hr IV .[id number] PRN; Protocol; 16 UNITS/KG/HR PRN Reason: PROTOCOL Last Admin: 05/27/17 01:23 Dose: 16 units/kg/hr, 15.966 mls/hr Losartan Potassium (Cozaar) 25 mg PO DAILY [facility] Last Admin: 05/27/17 09:10 Dose: 25 mg Ondansetron HCl (Zofran Inj) 4 mg IVP Q6 PRN PRN Reason: Nausea/Vomiting Oxycodone HCl (Oxycontin Extended Release Tab) 20 mg PO Q12 [facility] Last Admin: 05/27/17 09:10 Dose: 20 mg Pantoprazole Sodium (Protonix Ec Tab) 40 mg PO DAILY [facility] Last Admin: 05/27/17 09:10 Dose: 40 mg Polyethylene Glycol (Miralax) 17 gm PO DAILY PRN PRN Reason: Constipation Potassium Chloride (K-Dur 20 Meq Er Tab) 20 meq PO DAILY [facility] Last Admin: 05/27/17 09:10 Dose: 20 meq Potassium Chloride (K-Dur 20 Meq Er Tab) 20 meq PO ONCE ONE Stop: 05/27/17 15:58 Rosuvastatin Calcium (Crestor) 10 mg PO HS [facility] Last Admin: 05/26/17 21:53 Dose: 10 mg Simethicone (Mylicon Chew Tab) 80 mg PO QID [facility] Last Admin: 05/27/17 14:20 Dose: 80 mg - Labs Labs: 05/27/17 07:19 05/27/17 07:19 PT 13.2 SECONDS (9.7-12.2) H 05/23/17 11:36 INR 1.2 05/23/17 11:36 APTT 62 SECONDS (21-34) H D 05/27/17 07:19 - Constitutional Appears: Well, No Acute Distress - Head Exam Head Exam: ATRAUMATIC, NORMAL INSPECTION - Eye Exam Eye Exam: EOMI, Normal appearance - ENT Exam ENT Exam: Mucous Membranes Moist, Normal Exam - Respiratory Exam Respiratory Exam: Clear to Ausculation Bilateral, NORMAL BREATHING PATTERN - Cardiovascular Exam Cardiovascular Exam: REGULAR RHYTHM, +S1, +S2 - GI/Abdominal Exam GI & Abdominal Exam: Soft, Normal Bowel Sounds. absent: Tenderness - Extremities Exam Extremities Exam: Normal Capillary Refill, Normal Inspection. absent: Tenderness - Neurological Exam Neurological Exam: Alert, Awake, Oriented x3 - Psychiatric Exam Psychiatric exam: Normal Affect, Normal Mood - Skin Skin Exam: Dry, Normal Color, Warm Assessment and Plan (1) Abdominal pain Assessment & Plan: Possibly secondary to pancreatic cancer with metastatic spread to the liver and lungs * Awaiting pancreatic lesion FNB result. Surgery Consult ( Dr. Dewey) ----> Help appreciated (For mediport placement: 05/27/17) * Patient is agreeable to a mediport placement as per recommendation by DR. Watkins (05/27/2017) GI consult, Dr. Cobos, help appreicated Abdominal ultrasound- multiple hepatic masses, suspicious of mets; hepatosplenomegaly, fatty liver, thickened gallbladder wall; CBD: Measures 6mm, no stones and no dilation. Liver 20.1cm; diffuse increase echogenicity of the liver parenchyma, multiple ill-defined hypoechoic masses, largest approximately 3.8cm in greatest dimension; suspicious masses, spleen 13.2cm Ordered by GI: * CT triple phase liver protocol- numberous b/l lower lobe pulmonary nodules; hepatic lesions suspicious for mets, hepatomegaly, mild gallbladder wall thickening/perichoecystic edema; retroperitoneal lymph nodes measuring up to 14mm; diverticulosis * GGT 441 * AFP 3.0 * CEA 199.0 * Negative: Hep A IgM Ab, Hep Bs Antigen, Hep B core IgM Ab, Hep C Ab * Iron studies: Iron 45, TIBC 236, 19% sat, 1060 Ferritin * AST 53 * ALT 36 * ALK Phosphatase: 397 * IgG 840, IgA 195.5, IgM 50.2 * Negative: Anti-mitochondrial Ab, Anti-smooth muscle Ab, * Liver/Kid Mircosomes Ab: pending * Ca 19-9: >5000 Liver Bx: as per Dr. Cobos's note, liver biospy showed malignancy ( Adenocarcinoma), not HCC but suggestive of pancreatic billiary origin . Stains will be performed and final results pending; procedure performed on 05/17/17 As per GI: may benefit from elective colonoscopy; consider outpatient f/u with GI and Hem/Onc for further workup * As per GI, Surgery and Cardiology has given clearance to perform EDG, EUS, and colonoscopy scheduled for Saturday. * Stopped Lovenox on 05/22/17 * Started Heparin drip 05/22/17 (As per Dr. Thompson, will hold starting at 3am prior to procedure- EDG, EUS, Colonoscopy) Abd/Pelvic CT: multifocal hepatic mets; splenomegaly; layering gallbladder sludge; mural thickening gallbladder; upper retroperitoneal lymphadenopathy; nonacute sigmoid diverticular disease throughout majority of the colon; few scattered pulmonary nodules in B/L lung bases. Colonoscopy: * Ileum, mucosa- normal * Diverticulosis in sigmoid colon and descending colon * 3 to 8mm polyps in rectum, sigmoid and descending colon * internal hemorrhoids * no colon cancer identified * Recommended f/u colonoscopy in 6 months for polypectomy Endoscopy: * normal esophagus, duodenum * gastritis * small hiatus hernia * multiple metastatic lesions found in left and right lobe of liver * mass in genu of pancreas- fine needle bx performed-- Pending biopsy result * many abnormal lymph nodes visualized in celiac region, peripancreatic region, and destiny-hepatis region. Status: Acute (2) Pulmonary emboli Assessment & Plan: SOB, chest pain * CTA: 1. Pulmonary emboli. 2. Pulmonary nodules, indeterminate. Metastatic disease not excluded. Followup as clinically warranted. 3. Liver lesions, indeterminate. Metastatic disease not excluded. Followup as clinically warranted. 4. Incidental/non-acute findings are described above. * Echo- normal size; EF 65-70%; LV diastolic function is normal; RV is normal size; RV systolic function is normal; LA size is normal; RA size is normal; MR is mild; TR is mild * Therapeutic Lovenox 100mg SC BID started--> discontinued 05/22/17 * Heparin Drip- started 05/22/17 * ASA 81mg PO daily * Morphine 2mg IV Q3 PRN for pain * Hematology consult- Dr. Watkins, help appreciated * Pulmonology Consult - Dr. Johns, help appreciated * liver biopsy of the left mass liver: Adenocarcinoma * Surgical consult, Dr. Dewey, help appreciated. * IVC filter placed on 05/22/17 * reevaluate thrombus and f/u LE duplex--> DVT of right gastroc. vein and superficial phlebitis of R GSV. -Duplex of the lower extremity (05/27/17): reconfirms chronic dvt of right gastrocnemius vein and superficial phlebitis of right great saphenous vein and left LE (negative for DVT) * 05/02/17 LE Duplex: right acute thrombus of right gastrocnemius, greater saphenous, and varicose veins with reduction of the venous return. Status: Acute (3) NSTEMI (non-ST elevated myocardial infarction) Assessment & Plan: EKG: NSR @ 90 BPM * EKG- nsr @90 * JANETTE x 3 positive---> 0.512 on admission--->1.0900--->0.965 * Lipid panel: TG 92, Chol 117, LDL 65, HDL 28 * ECHO- EF 65-70%; mild mitral and tricuspid regurgitation * Pbx Wire Chief consult- Dr. Ulloa, help appreciated * continue current management: Aspirin 81mg PO daily, Cozaar 25 mg PO daily, Crestor 10mg PO daily * Heart Healthy Diet * likely noncardiac elevation of troponins. * Stress Test: negative (05/17/17) Status: Acute (4) Liver lesion Assessment & Plan: GI consulted ---> Dr. Cobos * Abdominal ultrasound- multiple hepatic masses, suspicious of mets; hepatosplenomegaly, fatty liver, thickened gallbladder wall; CBD: Measures 6mm, no stones and no dilation. Liver 20.1cm; diffuse increase echogenicity of the liver parenchyma, multiple ill-defined hypoechoic masses, largest approximately 3.8cm in greatest dimension; suspicious masses, spleen 13.2cm * CT: Mildly nodular hepatic contour. Borderline splenomegaly, hepatomegaly. 17mm probable splenule. Sub cm gastohepatic lymph nodes, nonspecific. 10mm probably lymph node, retroperitoneal lymph nodes measuring up to 14mm. * Liver biopsy result: as per Dr. Cobos's note, liver biospy showed malignancy ( Adenocarcinoma, suggestive of pancreatic billiary tree), not HCC. Stains will be performed and final results pending. * As per GI: may benefit from elective colonoscopy; consider outpatient f/u with GI and Hem/Onc for further workup * As per GI, Surgery and Cardiology has given clearance to perform EDG, EUS and colonoscopy scheduled for Saturday. * Stopped Lovenox on 05/22/17 * Started Heparin drip 05/22/17 (As per Dr. Thompson, will hold starting at 3am prior to procedure- EDG, EUS, Colonoscopy) Abd/Pelvic CT: multifocal hepatic mets; splenomegaly; layering gallbladder sludge; mural thickening gallbladder; upper retroperitoneal lymphadenopathy; nonacute sigmoid diverticular disease throughout majority of the colon; few scattered pulmonary nodules in B/L lung bases. Colonoscopy: * Ileum, mucosa- normal * Diverticulosis in sigmoid colon and descending colon * 3 to 8mm polyps in rectum, sigmoid and descending colon * internal hemorrhoids * no colon cancer identified * Recommended f/u colonoscopy in 6 months for polypectomy Endoscopy: * normal esophagus, duodenum * gastritis * small hiatus hernia * multiple metastatic lesions found in left and right lobe of liver * mass in genu of pancreas- fine needle bx performed * many abnormal lymph nodes visualized in celiac region, peripancreatic region, and destiny-hepatis region. Status: Acute (5) Lung nodules Assessment & Plan: CTA: Pulmonary nodules, indeterminate. Metastatic disease not excluded. Followup as clinically warranted. 3. Liver lesions, indeterminate. Metastatic disease not excluded. Followup as clinically warranted. * Monitor * Pulmonology consult: Dr. Johns, help appreciated Status: Acute (6) History of deep vein thrombosis (DVT) of lower extremity Assessment & Plan: Surgical consult, Dr. Dewey, help appreciated. * As per surgery, patient received IVC filter on 05/22/17 * reevaluate thrombus and f/u LE duplex--> DVT of right gastroc. vein and superficial phlebitis of R GSV. - -Duplex of the lower extremity (05/27/17): reconfirms chronic dvt of right gastrocnemius vein and superficial phlebitis of right great saphenous vein and left LE (negative for DVT) * 05/02/17 LE Duplex: right acute thrombus of right gastrocnemius, greater saphenous, and varicose veins with reduction of the venous return. Status: Acute (7) UTI (urinary tract infection) Assessment & Plan: UA: + LE * Rocephin 1 gm IVP daily--- D/C (05/24/17) * Urine culture- no growth Repeat UA result (05/17/17): yellow hazy, 1+ protein, 1+ LE, 21 WBC, 25 Squam epith cells, Few Bacteria Status: Acute (8) Hyperlipemia Assessment & Plan: Crestor 10mg PO QHS Lipid panel: TG 92, Chol 117, LDL 65, HDL 28 Status: Chronic (9) HTN (hypertension) Assessment & Plan: Cozaar 25mg PO daily Monitor BP Status: Chronic (10) Prophylactic measure Assessment & Plan: GI PPX: Protonix 40mg PO daily DVT PPX: Therapeutic lovenox--> discontinued; Currently on heparin ggt Status: Acute <Dick Dozier - Last Filed: 05/28/17 16:45> Objective - Vital Signs/Intake and Output Vital Signs (last 24 hours): Temp Pulse Resp BP Pulse Ox 97.4 F L 98 H 20 94/67 L 98 05/28/17 15:00 05/28/17 15:00 05/28/17 15:00 05/28/17 15:00 05/28/17 15:00 Intake and Output: 05/28/17 05/28/17 06:59 18:59 Intake Total 300 244 Balance 300 244 - Medications Medications: Current Medications Acetaminophen (Tylenol 325mg Tab) 650 mg PO Q6 PRN PRN Reason: Pain, Mild (1-3) Last Admin: 05/25/17 00:32 Dose: 650 mg Aspirin (Ecotrin) 81 mg PO DAILY [facility] Last Admin: 05/22/17 13:42 Dose: Not Given Enoxaparin Sodium (Lovenox) 40 mg SC Q12 [facility] Hydromorphone HCl (Dilaudid) 1 mg IVP Q3H PRN PRN Reason: Pain, severe (8-10) Last Admin: 05/28/17 14:57 Dose: 1 mg Losartan Potassium (Cozaar) 25 mg PO DAILY [facility] Last Admin: 05/28/17 10:05 Dose: 25 mg Nystatin (Mycostatin Cream) 1 ea TOP TID [facility] Last Admin: 05/28/17 14:54 Dose: 1 applic Ondansetron HCl (Zofran Inj) 4 mg IVP Q6 PRN PRN Reason: Nausea/Vomiting Oxycodone HCl (Oxycontin Extended Release Tab) 20 mg PO Q12 [facility] Last Admin: 05/28/17 10:06 Dose: 20 mg Pantoprazole Sodium (Protonix Ec Tab) 40 mg PO DAILY [facility] Last Admin: 05/28/17 10:05 Dose: 40 mg Potassium Chloride (K-Dur 20 Meq Er Tab) 20 meq PO DAILY [facility] Last Admin: 05/28/17 10:06 Dose: 20 meq Rosuvastatin Calcium (Crestor) 10 mg PO HS [facility] Last Admin: 05/27/17 22:47 Dose: 10 mg Simethicone (Mylicon Chew Tab) 80 mg PO QID [facility] Last Admin: 05/28/17 14:54 Dose: 80 mg - Labs Labs: 05/28/17 06:54 05/28/17 06:54 PT 13.2 SECONDS (9.7-12.2) H 05/23/17 11:36 INR 1.2 05/23/17 11:36 APTT 52 SECONDS (21-34) H D 05/28/17 06:54 Attending/Attestation - Attestation I have personally seen and examined this patient.: Yes I have fully participated in the care of the patient.: Yes I have reviewed all pertinent clinical information, including history, physical exam and plan: Yes Notes (Text): 05/28/17 16:44 Patient was seen and examined at bedside with the resident She still complains of abdominal pain and loss of appetite Patient agreed to Port-A-Cath placement We will arrange for Port-A-Cath placement by vascular surgery Discussed with the clinical specialist medical device and agree with the history and physical and assessment/plan documented.
--- NOTE | 2017-05-27 16:56 | CP.PCM.PN ---
Subjective - Date & Time of Evaluation Date of Evaluation: 05/27/17 Time of Evaluation: 16:53 - Subjective Subjective: Vascular sx progress note for Dr. Marcos Youssef, PGY-1 Pt S & E at bedside. Pt seen by surgery due to request by primary for permacath insertion. Objective - Vital Signs/Intake and Output Vital Signs (last 24 hours): Temp Pulse Resp BP Pulse Ox 97.4 F L 78 20 108/50 L 96 05/27/17 15:00 05/27/17 15:00 05/27/17 15:00 05/27/17 15:00 05/27/17 15:00 Intake and Output: 05/27/17 05/27/17 06:59 18:59 Intake Total 250 128 Balance 250 128 - Medications Medications: Current Medications Acetaminophen (Tylenol 325mg Tab) 650 mg PO Q6 PRN PRN Reason: Pain, Mild (1-3) Last Admin: 05/25/17 00:32 Dose: 650 mg Aspirin (Ecotrin) 81 mg PO DAILY [facility] Last Admin: 05/22/17 13:42 Dose: Not Given Hydromorphone HCl (Dilaudid) 1 mg IVP Q3H PRN PRN Reason: Pain, severe (8-10) Last Admin: 05/27/17 15:15 Dose: 1 mg Heparin Sodium/Sodium Chloride (Heparin 51389 Units/250ml 1/2 Normal Saline) 25 ,000 units in 250 mls @ 15.966 mls/hr IV .[id number] PRN; Protocol; 16 UNITS/KG/HR PRN Reason: PROTOCOL Last Admin: 05/27/17 01:23 Dose: 16 units/kg/hr, 15.966 mls/hr Losartan Potassium (Cozaar) 25 mg PO DAILY [facility] Last Admin: 05/27/17 09:10 Dose: 25 mg Ondansetron HCl (Zofran Inj) 4 mg IVP Q6 PRN PRN Reason: Nausea/Vomiting Oxycodone HCl (Oxycontin Extended Release Tab) 20 mg PO Q12 [facility] Last Admin: 05/27/17 09:10 Dose: 20 mg Pantoprazole Sodium (Protonix Ec Tab) 40 mg PO DAILY [facility] Last Admin: 05/27/17 09:10 Dose: 40 mg Polyethylene Glycol (Miralax) 17 gm PO DAILY PRN PRN Reason: Constipation Potassium Chloride (K-Dur 20 Meq Er Tab) 20 meq PO DAILY [facility] Last Admin: 05/27/17 09:10 Dose: 20 meq Rosuvastatin Calcium (Crestor) 10 mg PO HS [facility] Last Admin: 05/26/17 21:53 Dose: 10 mg Simethicone (Mylicon Chew Tab) 80 mg PO QID [facility] Last Admin: 05/27/17 14:20 Dose: 80 mg - Labs Labs: 05/27/17 07:19 05/27/17 07:19 PT 13.2 SECONDS (9.7-12.2) H 05/23/17 11:36 INR 1.2 05/23/17 11:36 APTT 62 SECONDS (21-34) H D 05/27/17 07:19 - Constitutional Appears: Non-toxic, No Acute Distress - Head Exam Head Exam: ATRAUMATIC, NORMAL INSPECTION, NORMOCEPHALIC - Eye Exam Eye Exam: EOMI, Normal appearance - Neck Exam Neck Exam: Full ROM - Respiratory Exam Respiratory Exam: Clear to Ausculation Bilateral, NORMAL BREATHING PATTERN - Cardiovascular Exam Cardiovascular Exam: REGULAR RHYTHM, +S1, +S2 - Extremities Exam Extremities Exam: Normal Inspection - Neurological Exam Neurological Exam: Alert, Awake, Oriented x3 - Psychiatric Exam Psychiatric exam: Normal Affect, Normal Mood - Skin Skin Exam: Dry, Intact, Warm Additional comments: Rash in R groin Assessment and Plan - Assessment and Plan (Free Text) Assessment: 56F w/adenocarcinoma, primary origin unknown. Plan: OR in AM NPO past MN Consent in chart DW attending Domonique, PGY-1
[2017-05-27] MEDS: Nystatin 100,000 Units/gm Cream(15 gm) TOP SCH (19:07)
[2017-05-28] MEDS: HYDROmorphone 1 mg/ml ISec IVP PRN ×3 (00:36→14:57)
[2017-05-28 07:04] LABS: BASO # 0.1 K/uL (0.0-0.2); EOS # 0.3 K/uL (0.0-0.7); EOS % 3.8 % (0.0-4.0); HEMOGLOBIN 9.2 g/dL (11.0-16.0); LYMPH % 12.5 % (20.0-40.0); MEAN CELL VOLUME 89.7 fL (81.0-99.0); MEAN CORPUSCULAR HEMOGLOBIN 29.4 pg (27.0-31.0); MEAN CORPUSCULAR HGB CONC 32.8 g/dL (33.0-37.0); MEAN PLATELET VOLUME 8.5 fL (7.2-11.7); MONO # 0.9 K/uL (0.0-0.8); MONO % 10.4 % (0.0-10.0); NEUT % 72.3 % (50.0-75.0); RBC 3.14 Mil/uL (3.80-5.20); RED CELL DISTRIBUTION WIDTH 13.7 % (11.5-14.5); WHITE BLOOD COUNT 8.3 K/uL (4.8-10.8)
--- NOTE | 2017-05-28 07:13 | CP.PCM.PN ---
Subjective - Date & Time of Evaluation Date of Evaluation: 05/28/17 Time of Evaluation: 07:14 - Subjective Subjective: Cardiology progress note for Dr. Ulloa Patient seen and examined at bedside. No acute events overnight as per nursing. Patient has been NPO overnight for permacath at 11am this morning. Heparin gtt to be held at 7:30 this AM. Patient continues to complain of mild abdominal pain and a decreased appetite. Pain is managed with pain regimen. She reported one episode of diarrhea yesterday. Patient denied fever, chills, headache, dizziness, chest pain, palpitations, SOB, cough, nausea, vomiting, bladder complaints, pain/swelling in her legs bilaterally. Objective - Vital Signs/Intake and Output Vital Signs (last 24 hours): Temp Pulse Resp BP Pulse Ox 98.4 F 79 20 106/52 L 97 05/27/17 23:05 05/28/17 03:30 05/27/17 23:05 05/27/17 23:05 05/27/17 23:05 Intake and Output: 05/28/17 05/28/17 06:59 18:59 Intake Total 300 Balance 300 - Medications Medications: Current Medications Acetaminophen (Tylenol 325mg Tab) 650 mg PO Q6 PRN PRN Reason: Pain, Mild (1-3) Last Admin: 05/25/17 00:32 Dose: 650 mg Aspirin (Ecotrin) 81 mg PO DAILY [facility] Last Admin: 05/22/17 13:42 Dose: Not Given Hydromorphone HCl (Dilaudid) 1 mg IVP Q3H PRN PRN Reason: Pain, severe (8-10) Last Admin: 05/28/17 06:15 Dose: 1 mg Heparin Sodium/Sodium Chloride (Heparin 52730 Units/250ml 1/2 Normal Saline) 25 ,000 units in 250 mls @ 15.966 mls/hr IV .[id number] PRN; Protocol; 16 UNITS/KG/HR PRN Reason: PROTOCOL Last Admin: 05/27/17 19:07 Dose: 16 units/kg/hr, 15.966 mls/hr Losartan Potassium (Cozaar) 25 mg PO DAILY [facility] Last Admin: 05/27/17 09:10 Dose: 25 mg Nystatin (Mycostatin Cream) 1 ea TOP TID [facility] Last Admin: 07/17/17 19:07 Dose: 1 applic Ondansetron HCl (Zofran Inj) 4 mg IVP Q6 PRN PRN Reason: Nausea/Vomiting Oxycodone HCl (Oxycontin Extended Release Tab) 20 mg PO Q12 [facility] Last Admin: 05/27/17 22:47 Dose: 20 mg Pantoprazole Sodium (Protonix Ec Tab) 40 mg PO DAILY [facility] Last Admin: 05/27/17 09:10 Dose: 40 mg Polyethylene Glycol (Miralax) 17 gm PO DAILY PRN PRN Reason: Constipation Potassium Chloride (K-Dur 20 Meq Er Tab) 20 meq PO DAILY [facility] Last Admin: 05/27/17 09:10 Dose: 20 meq Rosuvastatin Calcium (Crestor) 10 mg PO HS [facility] Last Admin: 05/27/17 22:47 Dose: 10 mg Simethicone (Mylicon Chew Tab) 80 mg PO QID [facility] Last Admin: 05/27/17 22:47 Dose: 80 mg - Labs Labs: 05/27/17 07:19 05/27/17 07:19 PT 13.2 SECONDS (9.7-12.2) H 05/23/17 11:36 INR 1.2 05/23/17 11:36 APTT 62 SECONDS (21-34) H D 05/27/17 07:19 - Constitutional Appears: No Acute Distress - Head Exam Head Exam: NORMAL INSPECTION, NORMOCEPHALIC - Eye Exam Eye Exam: EOMI, Normal appearance, PERRL. absent: Conjunctival injection, Scleral icterus Pupil Exam: NORMAL ACCOMODATION - ENT Exam ENT Exam: Mucous Membranes Moist - Neck Exam Neck Exam: Full ROM, Normal Inspection. absent: Tenderness - Respiratory Exam Respiratory Exam: Clear to Ausculation Bilateral, NORMAL BREATHING PATTERN. absent: Accessory Muscle Use, Rales, Rhonchi, Wheezes, Respiratory Distress - Cardiovascular Exam Cardiovascular Exam: REGULAR RHYTHM, RRR, +S1, +S2. absent: Murmur - GI/Abdominal Exam GI & Abdominal Exam: Soft, Tenderness, Normal Bowel Sounds, Organomegaly. absent: Firm, Rigid - Extremities Exam Extremities Exam: Normal Capillary Refill, Normal Inspection. absent: Pedal Edema, Tenderness - Neurological Exam Neurological Exam: Alert, Awake, Oriented x3 - Psychiatric Exam Psychiatric exam: Normal Affect, Normal Mood - Skin Skin Exam: Dry, Intact, Normal Color, Warm Assessment and Plan - Assessment and Plan (Free Text) Assessment: 56 year old female PMHx HTN, HLD, RLE DVT on eliquis (04/2017) presented on 05/14 with chest pain, headache, and SOB for 1 day. Cardiology was originally consulted for NSTEMI and reconsulted for risk stratification for OR procedures Plan: -POD#6 IVC filter placement -for permacath placement this AM -s/p EGD and colonoscopy -Echo 05/14/17: normal size EF 65-70% LV diastolic function is normal RV is normal size RV systolic function is normal LA size is normal RA size is normal MR is mild TR is mild -Elevated troponins 0.512 on admission -> 1.0900 -> 0.965 likely noncardiac elevation of enzymes -No acute ST elevations on EKG -Exercise stress test 05/17 was negative recommend outpatient lexiscan -Lipid panel T Cholesterol: 117 LDL: 65 HDL: 28 -Continue current management heparin gtt - on hold at 7:30 this AM for OR ASA 81mg po daily - on hold Cozaar 25mg po daily Crestor 10mg po hs Case discussed with Dr. Laila Overton PGY2
[2017-05-28 07:21] LABS: ALBUMIN 2.4 g/dL (3.5-5.0)
[2017-05-28 07:24] LABS: ALT/SGPT 42 U/L (9-52); AST/SGOT 54 U/L (14-36); BLOOD UREA NITROGEN 4 mg/dL (7-17); GFR AFRICAN-AMERICAN > 60; GFR NON-AFRICAN AMERICAN > 60
[2017-05-28 07:25] LABS: CALCIUM 8.2 mg/dl (8.6-10.4); MAGNESIUM 1.8 mg/dL (1.6-2.3)
[2017-05-28] MEDS: Nystatin 100,000 Units/gm Cream(15 gm) TOP SCH ×3 (10:05→17:33)
[2017-05-28] MEDS: Pantoprazole 40 mg EC Tab PO SCH (10:05)
[2017-05-28] MEDS: oxyCODONE 20 mg ER Tab (oxyCONTIN) PO SCH ×2 (10:06→21:08)
[2017-05-28] MEDS: Simethicone 80 mg Chewtab PO SCH ×4 (10:06→21:08)
[2017-05-28] MEDS: Potassium Chloride 20 mEq ER Tab PO SCH (10:06)
[2017-05-28] MEDS ORDERED: Lidocaine 1% Inj (20ml) ONE (10:16)
[2017-05-28] MEDS ORDERED: HEPARIN-NS 5,000 UNITS/500 ML 5,000 UNIT/500 ML BAG IV ONE (10:16)
[2017-05-28] MEDS ORDERED: ceFAZolin IV 2 gm in Dextrose 1 GM/50 ML BAG IVPB ONE (11:34)
[2017-05-28] MEDS ORDERED: Lactated Ringer's 1,000 ML IV ONE (12:10)
[2017-05-28] MEDS ORDERED: Midazolam 2 MG/2 ML VIAL ONE ×2 (12:14→12:56)
[2017-05-28] MEDS ORDERED: Propofol 10 mg/ml Inj (20 ML) ONE ×3 (12:20→12:59)
--- NOTE | 2017-05-28 13:17 | PCM.SURG1 ---
Surgeon's Initial Post Op Note - Surgeon's Notes Surgeon: Noé Dewey MD Jacket Changer: Elisabeth Youssef PGY-1; Yana Avery OMS-III Type of Anesthesia: General Endo Pre-Operative Diagnosis: Adenocarcinoma requiring chemotherapy Operative Findings: See op report Post-Operative Diagnosis: Adenocarcinoma requring chemotherapy Operation Performed: Right internal jugular portacath placement Specimen/Specimens Removed: None Estimated Blood Loss: EBL {In ML}: 20 Blood Products Given: N/A Drains Used: No Drains Post-Op Condition: Fair Date of Surgery/Procedure: 05/28/17 Time of Surgery/Procedure: 13:17
[2017-05-28] MEDS ORDERED: HYDROmorphone 0.5 mg/0.5 ml ISec IVP PRN (13:35)
--- NOTE | 2017-05-28 14:06 | RAD ---
HISTORY: s/p portacath placement COMPARISON: Chest x-ray performed 05/13/17 TECHNIQUE: Chest, one view. FINDINGS: Examination limited by habitus. Right-sided MediPort extends to the expected location of the SVC. LUNGS: Bibasilar subsegmental atelectasis. Nonspecific nodular densities, lateral lingula. Please note that chest x-ray has limited sensitivity for the detection of pulmonary masses. PLEURA: No significant pleural effusion identified. No definite pneumothorax . CARDIOVASCULAR: The cardiomediastinal silhouette appears within normal limits of size. OSSEOUS STRUCTURES: No acute osseous abnormality identified. VISUALIZED UPPER ABDOMEN: Unremarkable. OTHER FINDINGS: None. IMPRESSION: Right-sided MediPort extends expected location of the SVC. Bibasilar subsegmental atelectasis. Nonspecific nodular densities, lateral lingula.
--- NOTE | 2017-05-28 14:57 | CP.PCM.PN ---
<Roel Mercedes E - Last Filed: 05/28/17 20:51> Subjective - Date & Time of Evaluation Date of Evaluation: 05/28/17 Time of Evaluation: 07:50 - Subjective Subjective: Medicine Note ( PGY 1) : Dr. Dozier's service Patient was seen and examined at bedside. Patient was resting comfortably in bed. Patient had no acute event overnight and has no new complaints. Patient denies chest pain, sob, nausea, vomiting, fever, chills but continues to report abdominal pain. Patient is aware that she will be having a portcath placement today. Objective - Vital Signs/Intake and Output Vital Signs (last 24 hours): Temp Pulse Resp BP Pulse Ox 98.8 F 94 H 18 98/68 L 93 L 05/28/17 14:32 05/28/17 14:32 05/28/17 14:32 05/28/17 14:32 05/28/17 14:32 Intake and Output: 05/28/17 05/28/17 06:59 18:59 Intake Total 300 128 Balance 300 128 - Medications Medications: Current Medications Acetaminophen (Tylenol 325mg Tab) 650 mg PO Q6 PRN PRN Reason: Pain, Mild (1-3) Last Admin: 05/25/17 00:32 Dose: 650 mg Aspirin (Ecotrin) 81 mg PO DAILY [facility] Last Admin: 05/22/17 13:42 Dose: Not Given Enoxaparin Sodium (Lovenox) 32 mg SC Q12 [facility] Hydromorphone HCl (Dilaudid) 1 mg IVP Q3H PRN PRN Reason: Pain, severe (8-10) Losartan Potassium (Cozaar) 25 mg PO DAILY [facility] Last Admin: 05/28/17 10:05 Dose: 25 mg Nystatin (Mycostatin Cream) 1 ea TOP TID [facility] Last Admin: 05/28/17 14:54 Dose: 1 applic Ondansetron HCl (Zofran Inj) 4 mg IVP Q6 PRN PRN Reason: Nausea/Vomiting Oxycodone HCl (Oxycontin Extended Release Tab) 20 mg PO Q12 [facility] Last Admin: 05/28/17 10:06 Dose: 20 mg Pantoprazole Sodium (Protonix Ec Tab) 40 mg PO DAILY [facility] Last Admin: 05/28/17 10:05 Dose: 40 mg Potassium Chloride (K-Dur 20 Meq Er Tab) 20 meq PO DAILY [facility] Last Admin: 05/28/17 10:06 Dose: 20 meq Rosuvastatin Calcium (Crestor) 10 mg PO HS [facility] Last Admin: 05/27/17 22:47 Dose: 10 mg Simethicone (Mylicon Chew Tab) 80 mg PO QID [facility] Last Admin: 05/28/17 14:54 Dose: 80 mg - Labs Labs: 05/28/17 06:54 05/28/17 06:54 PT 13.2 SECONDS (9.7-12.2) H 05/23/17 11:36 INR 1.2 05/23/17 11:36 APTT 52 SECONDS (21-34) H D 05/28/17 06:54 - Constitutional Appears: Well, No Acute Distress - Head Exam Head Exam: ATRAUMATIC - Eye Exam Eye Exam: EOMI, Normal appearance - ENT Exam ENT Exam: Mucous Membranes Moist, Normal Exam - Respiratory Exam Respiratory Exam: Clear to Ausculation Bilateral, NORMAL BREATHING PATTERN - Cardiovascular Exam Cardiovascular Exam: REGULAR RHYTHM, +S1, +S2 - GI/Abdominal Exam GI & Abdominal Exam: Soft, Normal Bowel Sounds - Extremities Exam Extremities Exam: Normal Capillary Refill, Normal Inspection. absent: Pedal Edema, Tenderness - Psychiatric Exam Psychiatric exam: Depressed, Normal Affect - Skin Skin Exam: Dry, Normal Color, Warm Assessment and Plan (1) Abdominal pain Assessment & Plan: Possibly secondary to pancreatic cancer with metastatic spread to the liver and lungs * Awaiting pancreatic lesion FNB result. Surgery Consult ( Dr. Dewey) ----> Help appreciated (For mediport placement: 05/27/17) * Patient is agreeable to a mediport placement as per recommendation by DR. Watkins (05/27/2017) * S/p right internal jugular portcath placement day 0 (05/28/17) GI consult, Dr. Cobos, help appreicated Abdominal ultrasound- multiple hepatic masses, suspicious of mets; hepatosplenomegaly, fatty liver, thickened gallbladder wall; CBD: Measures 6mm, no stones and no dilation. Liver 20.1cm; diffuse increase echogenicity of the liver parenchyma, multiple ill-defined hypoechoic masses, largest approximately 3.8cm in greatest dimension; suspicious masses, spleen 13.2cm Ordered by GI: * CT triple phase liver protocol- numberous b/l lower lobe pulmonary nodules; hepatic lesions suspicious for mets, hepatomegaly, mild gallbladder wall thickening/perichoecystic edema; retroperitoneal lymph nodes measuring up to 14mm; diverticulosis * GGT 441 * AFP 3.0 * CEA 199.0 * Negative: Hep A IgM Ab, Hep Bs Antigen, Hep B core IgM Ab, Hep C Ab * Iron studies: Iron 45, TIBC 236, 19% sat, 1060 Ferritin * AST 53 * ALT 36 * ALK Phosphatase: 397 * IgG 840, IgA 195.5, IgM 50.2 * Negative: Anti-mitochondrial Ab, Anti-smooth muscle Ab, * Liver/Kid Mircosomes Ab: pending * Ca 19-9: >5000 Liver Bx: as per Dr. Cobos's note, liver biospy showed malignancy ( Adenocarcinoma), not HCC but suggestive of pancreatic billiary origin . Stains will be performed and final results pending; procedure performed on 05/17/17 As per GI: may benefit from elective colonoscopy; consider outpatient f/u with GI and Hem/Onc for further workup * As per GI, Surgery and Cardiology has given clearance to perform EDG, EUS, and colonoscopy Abd/Pelvic CT: multifocal hepatic mets; splenomegaly; layering gallbladder sludge; mural thickening gallbladder; upper retroperitoneal lymphadenopathy; nonacute sigmoid diverticular disease throughout majority of the colon; few scattered pulmonary nodules in B/L lung bases. Colonoscopy: * Ileum, mucosa- normal * Diverticulosis in sigmoid colon and descending colon * 3 to 8mm polyps in rectum, sigmoid and descending colon * internal hemorrhoids * no colon cancer identified * Recommended f/u colonoscopy in 6 months for polypectomy Endoscopy: * normal esophagus, duodenum * gastritis * small hiatus hernia * multiple metastatic lesions found in left and right lobe of liver * mass in genu of pancreas- fine needle bx performed-- Pending biopsy result * many abnormal lymph nodes visualized in celiac region, peripancreatic region, and destiny-hepatis region. Status: Acute (2) Pulmonary emboli Assessment & Plan: Resolved, Stable SOB, chest pain * CTA: 1. Pulmonary emboli. 2. Pulmonary nodules, indeterminate. Metastatic disease not excluded. Followup as clinically warranted. 3. Liver lesions, indeterminate. Metastatic disease not excluded. Followup as clinically warranted. 4. Incidental/non-acute findings are described above. * Echo- normal size; EF 65-70%; LV diastolic function is normal; RV is normal size; RV systolic function is normal; LA size is normal; RA size is normal; MR is mild; TR is mild * Therapeutic Lovenox 100mg SC BID started--> discontinued 05/22/17 * Heparin Drip- started 05/22/17 ---> Discontinued 05/28/17, and restarted on Lovenox 40mg SC BID * ASA 81mg PO daily * Morphine 2mg IV Q3 PRN for pain * Hematology consult- Dr. Watkins, help appreciated * Pulmonology Consult - Dr. Johns, help appreciated * liver biopsy of the left mass liver: Adenocarcinoma * Surgical consult, Dr. Dewey, help appreciated. * IVC filter placed on 05/22/17 * reevaluate thrombus and f/u LE duplex--> DVT of right gastroc. vein and superficial phlebitis of R GSV. -Duplex of the lower extremity (05/27/17): reconfirms chronic dvt of right gastrocnemius vein and superficial phlebitis of right great saphenous vein and left LE (negative for DVT) * 05/02/17 LE Duplex: right acute thrombus of right gastrocnemius, greater saphenous, and varicose veins with reduction of the venous return. Status: Acute (3) NSTEMI (non-ST elevated myocardial infarction) Assessment & Plan: EKG: NSR @ 90 BPM * EKG- nsr @90 * JANETTE x 3 positive---> 0.512 on admission--->1.0900--->0.965 * Lipid panel: TG 92, Chol 117, LDL 65, HDL 28 * ECHO- EF 65-70%; mild mitral and tricuspid regurgitation * Driller Machine consult- Dr. Ulloa, help appreciated * continue current management: Aspirin 81mg PO daily, Cozaar 25 mg PO daily, Crestor 10mg PO daily * Heart Healthy Diet * likely noncardiac elevation of troponins. * Stress Test: negative (05/17/17) Status: Acute (4) Liver lesion Assessment & Plan: GI consulted ---> Dr. Cobos * Abdominal ultrasound- multiple hepatic masses, suspicious of mets; hepatosplenomegaly, fatty liver, thickened gallbladder wall; CBD: Measures 6mm, no stones and no dilation. Liver 20.1cm; diffuse increase echogenicity of the liver parenchyma, multiple ill-defined hypoechoic masses, largest approximately 3.8cm in greatest dimension; suspicious masses, spleen 13.2cm * CT: Mildly nodular hepatic contour. Borderline splenomegaly, hepatomegaly. 17mm probable splenule. Sub cm gastohepatic lymph nodes, nonspecific. 10mm probably lymph node, retroperitoneal lymph nodes measuring up to 14mm. * Liver biopsy result: as per Dr. Cobos's note, liver biospy showed malignancy ( Adenocarcinoma, suggestive of pancreatic billiary tree), not HCC. Stains will be performed and final results pending. * As per GI: may benefit from elective colonoscopy; consider outpatient f/u with GI and Hem/Onc for further workup * As per GI, Surgery and Cardiology has given clearance to perform EDG, EUS and colonoscopy * Abd/Pelvic CT: multifocal hepatic mets; splenomegaly; layering gallbladder sludge; mural thickening gallbladder; upper retroperitoneal lymphadenopathy; nonacute sigmoid diverticular disease throughout majority of the colon; few scattered pulmonary nodules in B/L lung bases. Colonoscopy: * Ileum, mucosa- normal * Diverticulosis in sigmoid colon and descending colon * 3 to 8mm polyps in rectum, sigmoid and descending colon * internal hemorrhoids * no colon cancer identified * Recommended f/u colonoscopy in 6 months for polypectomy Endoscopy: * normal esophagus, duodenum * gastritis * small hiatus hernia * multiple metastatic lesions found in left and right lobe of liver * mass in genu of pancreas- fine needle bx performed * many abnormal lymph nodes visualized in celiac region, peripancreatic region, and destiny-hepatis region. Hematology/Oncology consulted, ( Dr. Watkins)----> Help appreciated * As recommedation, portcath placement for treatment * Patient is s/p right internal jugular portcath placement day 0 (05/28/17) Status: Acute (5) Lung nodules Assessment & Plan: CTA: Pulmonary nodules, indeterminate. Metastatic disease not excluded. Followup as clinically warranted. 3. Liver lesions, indeterminate. Metastatic disease not excluded. Followup as clinically warranted. * Monitor * Pulmonology consult: Dr. Johns, help appreciated Status: Acute (6) History of deep vein thrombosis (DVT) of lower extremity Assessment & Plan: Surgical consult, Dr. Dewey, help appreciated. * As per surgery, patient received IVC filter on 05/22/17 * reevaluate thrombus and f/u LE duplex--> DVT of right gastroc. vein and superficial phlebitis of R GSV. - -Duplex of the lower extremity (05/27/17): reconfirms chronic dvt of right gastrocnemius vein and superficial phlebitis of right great saphenous vein and left LE (negative for DVT) * 05/02/17 LE Duplex: right acute thrombus of right gastrocnemius, greater saphenous, and varicose veins with reduction of the venous return. Status: Acute (7) UTI (urinary tract infection) Assessment & Plan: Resolved UA: + LE * Rocephin 1 gm IVP daily--- D/C (05/24/17) * Urine culture- no growth Repeat UA result (05/17/17): yellow hazy, 1+ protein, 1+ LE, 21 WBC, 25 Squam epith cells, Few Bacteria Status: Acute (8) Hyperlipemia Assessment & Plan: Crestor 10mg PO QHS Lipid panel: TG 92, Chol 117, LDL 65, HDL 28 Status: Chronic (9) HTN (hypertension) Assessment & Plan: Cozaar 25mg PO daily Monitor BP Status: Chronic (10) Prophylactic measure Assessment & Plan: GI PPX: Protonix 40mg PO daily DVT PPX: Therapeutic lovenox [id number] --> Restarted 05/28/17 Currently on heparin ggt----> discontinued 05/28/17 Status: Acute <Dick Dozier - Last Filed: 05/29/17 17:22> Objective - Vital Signs/Intake and Output Vital Signs (last 24 hours): Temp Pulse Resp BP Pulse Ox 98 F 90 20 91/51 L 99 05/29/17 15:00 05/29/17 15:00 05/29/17 15:00 05/29/17 15:00 05/29/17 15:00 Intake and Output: 05/29/17 05/29/17 06:59 18:59 Intake Total 710 Output Total 0 Balance 710 - Medications Medications: Current Medications Acetaminophen (Tylenol 325mg Tab) 650 mg PO Q6 PRN PRN Reason: Pain, Mild (1-3) Last Admin: 05/25/17 00:32 Dose: 650 mg Aspirin (Ecotrin) 81 mg PO DAILY [facility] Last Admin: 05/29/17 10:13 Dose: 81 mg Enoxaparin Sodium (Lovenox) 100 mg SC Q12 [facility] Hydromorphone HCl (Dilaudid) 1 mg IVP Q3H PRN PRN Reason: Pain, severe (8-10) Last Admin: 05/29/17 07:38 Dose: 1 mg Sodium Chloride (Sodium Chloride 0.9%) 1,000 mls @ 100 mls/hr IV .Q10H [facility] Last Admin: 05/29/17 12:34 Dose: 100 mls/hr Losartan Potassium (Cozaar) 25 mg PO DAILY [facility] Last Admin: 05/29/17 10:13 Dose: 25 mg Nystatin (Mycostatin Cream) 1 ea TOP TID [facility] Last Admin: 05/29/17 10:13 Dose: 1 applic Ondansetron HCl (Zofran Inj) 4 mg IVP Q6 PRN PRN Reason: Nausea/Vomiting Oxycodone HCl (Oxycontin Extended Release Tab) 20 mg PO Q12 [facility] Last Admin: 05/29/17 10:22 Dose: 20 mg Pantoprazole Sodium (Protonix Ec Tab) 40 mg PO DAILY [facility] Last Admin: 05/29/17 10:13 Dose: 40 mg Potassium Chloride (K-Dur 20 Meq Er Tab) 20 meq PO DAILY [facility] Last Admin: 05/29/17 10:13 Dose: 20 meq Rosuvastatin Calcium (Crestor) 10 mg PO HS [facility] Last Admin: 05/28/17 21:08 Dose: 10 mg Simethicone (Mylicon Chew Tab) 80 mg PO QID [facility] Last Admin: 05/29/17 10:13 Dose: 80 mg - Labs Labs: 05/29/17 06:43 05/29/17 06:43 PT 13.2 SECONDS (9.7-12.2) H 05/23/17 11:36 INR 1.2 05/23/17 11:36 APTT 52 SECONDS (21-34) H D 05/28/17 06:54 Attending/Attestation - Attestation I have personally seen and examined this patient.: Yes I have fully participated in the care of the patient.: Yes I have reviewed all pertinent clinical information, including history, physical exam and plan: Yes Notes (Text): 05/29/17 17:20 Patient was seen and examined at bedside with the resident Complains of abdominal pain. We are awaiting pathology report of the pancreatic biopsy. Patient had a Port-A-Cath placed today. I discussed the plan of care with the resident and I agree with assessment/plan documented.
[2017-05-28] MEDS: Enoxaparin 40 mg Syringe SC SCH (21:07)
[2017-05-28] MEDS ORDERED: Enoxaparin 30 mg Syringe SC SCH (22:00)
--- NOTE | 2017-05-29 02:46 | CP.PCM.PN ---
Subjective - Date & Time of Evaluation Date of Evaluation: 05/28/17 Time of Evaluation: 14:00 - Subjective Subjective: No complaints, s/p portacath placement Objective - Vital Signs/Intake and Output Vital Signs (last 24 hours): Temp Pulse Resp BP Pulse Ox 98.3 F 91 H 20 93/59 L 96 05/28/17 23:00 05/28/17 23:00 05/28/17 23:00 05/28/17 23:00 05/28/17 23:00 Intake and Output: 05/28/17 05/29/17 18:59 06:59 Intake Total 244 700 Output Total 0 Balance 244 700 - Medications Medications: Current Medications Acetaminophen (Tylenol 325mg Tab) 650 mg PO Q6 PRN PRN Reason: Pain, Mild (1-3) Last Admin: 05/25/17 00:32 Dose: 650 mg Aspirin (Ecotrin) 81 mg PO DAILY [facility] Last Admin: 05/22/17 13:42 Dose: Not Given Enoxaparin Sodium (Lovenox) 40 mg SC Q12 [facility] Last Admin: 05/28/17 21:07 Dose: 40 mg Hydromorphone HCl (Dilaudid) 1 mg IVP Q3H PRN PRN Reason: Pain, severe (8-10) Last Admin: 05/28/17 14:57 Dose: 1 mg Losartan Potassium (Cozaar) 25 mg PO DAILY [facility] Last Admin: 05/28/17 10:05 Dose: 25 mg Nystatin (Mycostatin Cream) 1 ea TOP TID [facility] Last Admin: 05/28/17 17:33 Dose: 1 applic Ondansetron HCl (Zofran Inj) 4 mg IVP Q6 PRN PRN Reason: Nausea/Vomiting Oxycodone HCl (Oxycontin Extended Release Tab) 20 mg PO Q12 [facility] Last Admin: 05/28/17 21:08 Dose: 20 mg Pantoprazole Sodium (Protonix Ec Tab) 40 mg PO DAILY [facility] Last Admin: 05/28/17 10:05 Dose: 40 mg Potassium Chloride (K-Dur 20 Meq Er Tab) 20 meq PO DAILY [facility] Last Admin: 05/28/17 10:06 Dose: 20 meq Rosuvastatin Calcium (Crestor) 10 mg PO HS [facility] Last Admin: 05/28/17 21:08 Dose: 10 mg Simethicone (Mylicon Chew Tab) 80 mg PO QID [facility] Last Admin: 05/28/17 21:08 Dose: 80 mg - Labs Labs: 05/28/17 06:54 05/28/17 06:54 PT 13.2 SECONDS (9.7-12.2) H 05/23/17 11:36 INR 1.2 05/23/17 11:36 APTT 52 SECONDS (21-34) H D 05/28/17 06:54 - Head Exam Head Exam: ATRAUMATIC - Eye Exam Eye Exam: Normal appearance - ENT Exam ENT Exam: Mucous Membranes Dry - Respiratory Exam Respiratory Exam: NORMAL BREATHING PATTERN - Cardiovascular Exam Cardiovascular Exam: +S1, +S2 - GI/Abdominal Exam GI & Abdominal Exam: Normal Bowel Sounds - Extremities Exam Extremities Exam: Normal Inspection Assessment and Plan (1) Pulmonary emboli Assessment & Plan: therapeutic anticoagulation Status: Acute (2) Lesion of lung Assessment & Plan: ?metastatic disease Status: Acute (3) Liver lesion Assessment & Plan: adenocarcinoma; ?pancreatic primary Status: Acute (4) Anemia Status: Acute (5) Coagulopathy Status: Acute (6) Tobacco abuse Status: Acute
--- NOTE | 2017-05-29 03:27 | OP ---
PROCEDURE DATE: 05/28/2017 PREOPERATIVE DIAGNOSIS: Lack of venous access. POSTOPERATIVE DIAGNOSIS: Lack of venous access. PROCEDURE CARRIED OUT. Port-A-Cath PowerPort type, right jugular vein with C-arm fluoroscopy, ultrasound-guided puncture and micropuncture technique. SURGEON: Dr. Noé Dewey Jr. STUDENT DEVELOPMENT ADVISOR: None. ANESTHESIOLOGIST: *------*. The patient is a middle-aged woman, recently diagnosed with widely metastatic cancer, requires a Port-A-Cath for vascular access. OPERATIVE FINDINGS: A PowerPort was inserted uneventfully into the jugular vein by procedure using the ultrasound guidance and micropuncture technique. The right jugular vein was cannulated. Under fluoroscopic control, the guide wire was advanced centrally. A sheath dilator was passed through this and a catheter was positioned to the tip through vena cava and right atrial junction. This was flushed with heparinized saline with good return in both directions. Catheter was then secured to the skin and buried. BLOOD LOSS DURING PROCEDURE: 20 mL. Ultrasound images of the neck shows the vein was approximately 14 mm in diameter with normal compressibility with no evidence of intramural thrombosis. Noé Dewey Jr., MD /Noé Dewey Jr., MD13:26:31
[2017-05-29 07:13] LABS: BASO # 0.1 K/uL (0.0-0.2); BASO % 0.8 % (0.0-2.0); EOS # 0.2 K/uL (0.0-0.7); EOS % 1.9 % (0.0-4.0); HEMOGLOBIN 9.6 g/dL (11.0-16.0); LYMPH # 1.1 K/uL (1.0-4.3); LYMPH % 11.9 % (20.0-40.0); MEAN CELL VOLUME 89.8 fL (81.0-99.0); MEAN CORPUSCULAR HEMOGLOBIN 29.6 pg (27.0-31.0); MEAN CORPUSCULAR HGB CONC 32.9 g/dL (33.0-37.0); MEAN PLATELET VOLUME 8.9 fL (7.2-11.7); MONO # 0.9 K/uL (0.0-0.8); NEUT # 6.8 K/uL (1.8-7.0); NEUT % 75.4 % (50.0-75.0); RBC 3.26 Mil/uL (3.80-5.20); RED CELL DISTRIBUTION WIDTH 14.1 % (11.5-14.5); WHITE BLOOD COUNT 9.1 K/uL (4.8-10.8)
[2017-05-29 07:25] LABS: ALBUMIN 2.5 g/dL (3.5-5.0)
[2017-05-29 07:28] LABS: ALB/GLOB RATIO 0.9 (1.0-2.1)
[2017-05-29 07:29] LABS: CALCIUM 8.1 mg/dl (8.6-10.4)
[2017-05-29] MEDS: HYDROmorphone 1 mg/ml ISec IVP PRN ×3 (07:38→22:11)
[2017-05-29] MEDS: Potassium Chloride 20 mEq ER Tab PO SCH (10:13)
[2017-05-29] MEDS: Simethicone 80 mg Chewtab PO SCH ×4 (10:13→21:31)
[2017-05-29] MEDS: Nystatin 100,000 Units/gm Cream(15 gm) TOP SCH ×3 (10:13→21:32)
[2017-05-29] MEDS: Pantoprazole 40 mg EC Tab PO SCH (10:13)
[2017-05-29] MEDS: Enoxaparin 40 mg Syringe SC SCH (10:13)
[2017-05-29] MEDS: oxyCODONE 20 mg ER Tab (oxyCONTIN) PO SCH ×2 (10:22→22:30)
--- NOTE | 2017-05-29 11:14 | CP.PCM.PN ---
Subjective - Date & Time of Evaluation Date of Evaluation: 05/29/17 Time of Evaluation: 07:10 - Subjective Subjective: Vascular sx progress note for Dr. Marcos Youssef, PGY-1 Pt S & E at bedside. Pt c/o of abdominal/back pain overnight, requiring pain regimen. Pt reports some pain over portacath implantation site. Denies N/V/F/C, SOB, CP. Objective - Vital Signs/Intake and Output Vital Signs (last 24 hours): Temp Pulse Resp BP Pulse Ox 98.3 F 90 18 99/59 L 97 05/29/17 08:28 05/29/17 08:28 05/29/17 08:28 05/29/17 08:28 05/29/17 08:28 Intake and Output: 05/29/17 05/29/17 06:59 18:59 Intake Total 710 Output Total 0 Balance 710 - Medications Medications: Current Medications Acetaminophen (Tylenol 325mg Tab) 650 mg PO Q6 PRN PRN Reason: Pain, Mild (1-3) Last Admin: 05/25/17 00:32 Dose: 650 mg Aspirin (Ecotrin) 81 mg PO DAILY [facility] Last Admin: 05/29/17 10:13 Dose: 81 mg Enoxaparin Sodium (Lovenox) 100 mg SC Q12 [facility] Hydromorphone HCl (Dilaudid) 1 mg IVP Q3H PRN PRN Reason: Pain, severe (8-10) Last Admin: 05/29/17 07:38 Dose: 1 mg Losartan Potassium (Cozaar) 25 mg PO DAILY [facility] Last Admin: 05/29/17 10:13 Dose: 25 mg Nystatin (Mycostatin Cream) 1 ea TOP TID [facility] Last Admin: 05/29/17 10:13 Dose: 1 applic Ondansetron HCl (Zofran Inj) 4 mg IVP Q6 PRN PRN Reason: Nausea/Vomiting Oxycodone HCl (Oxycontin Extended Release Tab) 20 mg PO Q12 [facility] Last Admin: 05/29/17 10:22 Dose: 20 mg Pantoprazole Sodium (Protonix Ec Tab) 40 mg PO DAILY [facility] Last Admin: 05/29/17 10:13 Dose: 40 mg Potassium Chloride (K-Dur 20 Meq Er Tab) 20 meq PO DAILY [facility] Last Admin: 07/19/17 10:13 Dose: 20 meq Rosuvastatin Calcium (Crestor) 10 mg PO HS [facility] Last Admin: 05/28/17 21:08 Dose: 10 mg Simethicone (Mylicon Chew Tab) 80 mg PO QID [facility] Last Admin: 05/29/17 10:13 Dose: 80 mg - Labs Labs: 05/29/17 06:43 05/29/17 06:43 PT 13.2 SECONDS (9.7-12.2) H 05/23/17 11:36 INR 1.2 05/23/17 11:36 APTT 52 SECONDS (21-34) H D 05/28/17 06:54 - Constitutional Appears: Non-toxic, No Acute Distress - Head Exam Head Exam: ATRAUMATIC, NORMAL INSPECTION, NORMOCEPHALIC - Eye Exam Eye Exam: EOMI, Normal appearance - ENT Exam ENT Exam: Mucous Membranes Moist - Neck Exam Neck Exam: Full ROM - Respiratory Exam Respiratory Exam: Chest Wall Tenderness (over portacath insertion site), Clear to Ausculation Bilateral, NORMAL BREATHING PATTERN - Cardiovascular Exam Cardiovascular Exam: REGULAR RHYTHM, +S1, +S2 - GI/Abdominal Exam GI & Abdominal Exam: Soft, Normal Bowel Sounds - Extremities Exam Extremities Exam: Normal Inspection. absent: Pedal Edema - Neurological Exam Neurological Exam: Alert, Awake, Oriented x3 - Psychiatric Exam Psychiatric exam: Normal Affect, Normal Mood - Skin Skin Exam: Dry, Normal Color, Warm Assessment and Plan - Assessment and Plan (Free Text) Assessment: 56F w/adenocarcinoma, primary origin unknown Plan: CXR s/p portacath placement w/o pneumothorax ok to use portacath Pain mgmt as per primary team Further recs as per attending Will SHAUNNA attending Domonique, PGY-1
--- NOTE | 2017-05-29 11:32 | CP.PCM.PN ---
<Roel Mercedes - Last Filed: 05/29/17 15:34> Subjective - Date & Time of Evaluation Date of Evaluation: 05/29/17 Time of Evaluation: 09:00 - Subjective Subjective: Medicine Note ( PGY 1) : Dr. Dozier's service Patient was seen and examined at bedside. Patient is s/p porth cath placement day 1. Patient had complaints of continuous pain that is alleviated with pain medication. Patient continues to report diffuse abdominal pain and pain at the porth cath placement but denies chest pain, sob, nausea, vomiting, fever, chills. Objective - Vital Signs/Intake and Output Vital Signs (last 24 hours): Temp Pulse Resp BP Pulse Ox 98.3 F 90 18 99/59 L 97 05/29/17 08:28 05/29/17 08:28 05/29/17 08:28 05/29/17 08:28 05/29/17 08:28 Intake and Output: 05/29/17 05/29/17 06:59 18:59 Intake Total 710 Output Total 0 Balance 710 - Medications Medications: Current Medications Acetaminophen (Tylenol 325mg Tab) 650 mg PO Q6 PRN PRN Reason: Pain, Mild (1-3) Last Admin: 05/25/17 00:32 Dose: 650 mg Aspirin (Ecotrin) 81 mg PO DAILY [facility] Last Admin: 05/29/17 10:13 Dose: 81 mg Enoxaparin Sodium (Lovenox) 100 mg SC Q12 [facility] Hydromorphone HCl (Dilaudid) 1 mg IVP Q3H PRN PRN Reason: Pain, severe (8-10) Last Admin: 05/29/17 07:38 Dose: 1 mg Sodium Chloride (Sodium Chloride 0.9%) 1,000 mls @ 100 mls/hr IV .Q10H [facility] Losartan Potassium (Cozaar) 25 mg PO DAILY [facility] Last Admin: 05/29/17 10:13 Dose: 25 mg Nystatin (Mycostatin Cream) 1 ea TOP TID [facility] Last Admin: 05/29/17 10:13 Dose: 1 applic Ondansetron HCl (Zofran Inj) 4 mg IVP Q6 PRN PRN Reason: Nausea/Vomiting Oxycodone HCl (Oxycontin Extended Release Tab) 20 mg PO Q12 [facility] Last Admin: 05/29/17 10:22 Dose: 20 mg Pantoprazole Sodium (Protonix Ec Tab) 40 mg PO DAILY [facility] Last Admin: 05/29/17 10:13 Dose: 40 mg Potassium Chloride (K-Dur 20 Meq Er Tab) 20 meq PO DAILY [facility] Last Admin: 05/29/17 10:13 Dose: 20 meq Rosuvastatin Calcium (Crestor) 10 mg PO HS [facility] Last Admin: 05/28/17 21:08 Dose: 10 mg Simethicone (Mylicon Chew Tab) 80 mg PO QID [facility] Last Admin: 05/29/17 10:13 Dose: 80 mg - Labs Labs: 05/29/17 06:43 05/29/17 06:43 PT 13.2 SECONDS (9.7-12.2) H 05/23/17 11:36 INR 1.2 05/23/17 11:36 APTT 52 SECONDS (21-34) H D 05/28/17 06:54 - Constitutional Appears: No Acute Distress - Head Exam Head Exam: ATRAUMATIC, NORMAL INSPECTION - Eye Exam Eye Exam: EOMI, Normal appearance - ENT Exam ENT Exam: Mucous Membranes Moist, Normal Exam - Respiratory Exam Respiratory Exam: Clear to Ausculation Bilateral, NORMAL BREATHING PATTERN - Cardiovascular Exam Cardiovascular Exam: REGULAR RHYTHM, +S1, +S2 - GI/Abdominal Exam GI & Abdominal Exam: Soft, Normal Bowel Sounds - Extremities Exam Extremities Exam: Normal Capillary Refill, Normal Inspection - Neurological Exam Neurological Exam: Alert, Awake, Oriented x3 - Psychiatric Exam Psychiatric exam: Depressed, Normal Affect. absent: Normal Mood - Skin Skin Exam: Dry, Normal Color, Warm Assessment and Plan (1) Abdominal pain Assessment & Plan: Possibly secondary to pancreatic cancer with metastatic spread to the liver and lungs * Pending pancreatic lesion FNB result. Surgery Consult ( Dr. Dewey) ----> Help appreciated (For mediport placement: 05/27/17) * Patient is agreeable to a mediport placement as per recommendation by DR. Watkins (05/27/2017) * S/p right internal jugular portcath placement day (05/28/17) GI consult, Dr. Cobos, help appreicated Abdominal ultrasound- multiple hepatic masses, suspicious of mets; hepatosplenomegaly, fatty liver, thickened gallbladder wall; CBD: Measures 6mm, no stones and no dilation. Liver 20.1cm; diffuse increase echogenicity of the liver parenchyma, multiple ill-defined hypoechoic masses, largest approximately 3.8cm in greatest dimension; suspicious masses, spleen 13.2cm Ordered by GI: * CT triple phase liver protocol- numberous b/l lower lobe pulmonary nodules; hepatic lesions suspicious for mets, hepatomegaly, mild gallbladder wall thickening/perichoecystic edema; retroperitoneal lymph nodes measuring up to 14mm; diverticulosis * GGT 441 * AFP 3.0 * CEA 199.0 * Negative: Hep A IgM Ab, Hep Bs Antigen, Hep B core IgM Ab, Hep C Ab * Iron studies: Iron 45, TIBC 236, 19% sat, 1060 Ferritin * AST 53 * ALT 36 * ALK Phosphatase: 397 * IgG 840, IgA 195.5, IgM 50.2 * Negative: Anti-mitochondrial Ab, Anti-smooth muscle Ab, * Liver/Kid Mircosomes Ab: pending * Ca 19-9: >5000 Liver Bx: as per Dr. Cobos's note, liver biospy showed malignancy ( Adenocarcinoma), not HCC but suggestive of pancreatic billiary origin . Stains will be performed and final results pending; procedure performed on 05/17/17 As per GI: may benefit from elective colonoscopy; consider outpatient f/u with GI and Hem/Onc for further workup * As per GI, Surgery and Cardiology has given clearance to perform EDG, EUS, and colonoscopy Abd/Pelvic CT: multifocal hepatic mets; splenomegaly; layering gallbladder sludge; mural thickening gallbladder; upper retroperitoneal lymphadenopathy; nonacute sigmoid diverticular disease throughout majority of the colon; few scattered pulmonary nodules in B/L lung bases. Colonoscopy: * Ileum, mucosa- normal * Diverticulosis in sigmoid colon and descending colon * 3 to 8mm polyps in rectum, sigmoid and descending colon * internal hemorrhoids * no colon cancer identified * Recommended f/u colonoscopy in 6 months for polypectomy Endoscopy: * normal esophagus, duodenum * gastritis * small hiatus hernia * multiple metastatic lesions found in left and right lobe of liver * mass in genu of pancreas- fine needle bx performed-- Pending biopsy result * many abnormal lymph nodes visualized in celiac region, peripancreatic region, and destiny-hepatis region. Palliative care consult (05/29/17): * Code status Full Code, there is no Advance directive on chart, PPS 60% * halfway pain management necessary Status: Acute Status: Acute (2) Pulmonary emboli Assessment & Plan: Resolved, Stable SOB, chest pain * CTA: 1. Pulmonary emboli. 2. Pulmonary nodules, indeterminate. Metastatic disease not excluded. Followup as clinically warranted. 3. Liver lesions, indeterminate. Metastatic disease not excluded. Followup as clinically warranted. 4. Incidental/non-acute findings are described above. * Echo- normal size; EF 65-70%; LV diastolic function is normal; RV is normal size; RV systolic function is normal; LA size is normal; RA size is normal; MR is mild; TR is mild * Therapeutic Lovenox 100mg SC BID started--> discontinued 05/22/17 * Heparin Drip- started 05/22/17 ---> Discontinued 05/28/17, and restarted on Lovenox 100mg SC BID * ASA 81mg PO daily * Morphine 2mg IV Q3 PRN for pain * Hematology consult- Dr. Watkins, help appreciated * Pulmonology Consult - Dr. Johns, help appreciated * liver biopsy of the left mass liver: Adenocarcinoma * Surgical consult, Dr. Dewey, help appreciated. * IVC filter placed on 05/22/17 * reevaluate thrombus and f/u LE duplex--> DVT of right gastroc. vein and superficial phlebitis of R GSV. -Duplex of the lower extremity (05/27/17): reconfirms chronic dvt of right gastrocnemius vein and superficial phlebitis of right great saphenous vein and left LE (negative for DVT) * 05/02/17 LE Duplex: right acute thrombus of right gastrocnemius, greater saphenous, and varicose veins with reduction of the venous return. Status: Acute Status: Acute (3) NSTEMI (non-ST elevated myocardial infarction) Assessment & Plan: EKG: NSR @ 90 BPM * EKG- nsr @90 * JANETTE x 3 positive---> 0.512 on admission--->1.0900--->0.965 * Lipid panel: TG 92, Chol 117, LDL 65, HDL 28 * ECHO- EF 65-70%; mild mitral and tricuspid regurgitation * Choke Setter consult- Dr. Ulloa, help appreciated * continue current management: Aspirin 81mg PO daily, Cozaar 25 mg PO daily, Crestor 10mg PO daily * Heart Healthy Diet * likely noncardiac elevation of troponins. * Stress Test: negative (05/17/17) Status: Acute (4) Liver lesion Assessment & Plan: GI consulted ---> Dr. Cobos * Abdominal ultrasound- multiple hepatic masses, suspicious of mets; hepatosplenomegaly, fatty liver, thickened gallbladder wall; CBD: Measures 6mm, no stones and no dilation. Liver 20.1cm; diffuse increase echogenicity of the liver parenchyma, multiple ill-defined hypoechoic masses, largest approximately 3.8cm in greatest dimension; suspicious masses, spleen 13.2cm * CT: Mildly nodular hepatic contour. Borderline splenomegaly, hepatomegaly. 17mm probable splenule. Sub cm gastohepatic lymph nodes, nonspecific. 10mm probably lymph node, retroperitoneal lymph nodes measuring up to 14mm. * Liver biopsy result: as per Dr. Cobos's note, liver biospy showed malignancy ( Adenocarcinoma, suggestive of pancreatic billiary tree), not HCC. Stains will be performed and final results pending. * As per GI: may benefit from elective colonoscopy; consider outpatient f/u with GI and Hem/Onc for further workup * As per GI, Surgery and Cardiology has given clearance to perform EDG, EUS and colonoscopy * Abd/Pelvic CT: multifocal hepatic mets; splenomegaly; layering gallbladder sludge; mural thickening gallbladder; upper retroperitoneal lymphadenopathy; nonacute sigmoid diverticular disease throughout majority of the colon; few scattered pulmonary nodules in B/L lung bases. Colonoscopy: * Ileum, mucosa- normal * Diverticulosis in sigmoid colon and descending colon * 3 to 8mm polyps in rectum, sigmoid and descending colon * internal hemorrhoids * no colon cancer identified * Recommended f/u colonoscopy in 6 months for polypectomy Endoscopy: * normal esophagus, duodenum * gastritis * small hiatus hernia * multiple metastatic lesions found in left and right lobe of liver * mass in genu of pancreas- fine needle bx performed * many abnormal lymph nodes visualized in celiac region, peripancreatic region, and destiny-hepatis region. Hematology/Oncology consulted, ( Dr. Watkins)----> Help appreciated * As recommedation, portcath placement for treatment * Patient is s/p right internal jugular portcath placement (05/28/17) Palliative care consult (05/29/17): * Code status Full Code, there is no Advance directive on chart, PPS 60% * halfway pain management necessary Status: Acute (5) Lung nodules Assessment & Plan: CTA: Pulmonary nodules, indeterminate. Metastatic disease not excluded. Followup as clinically warranted. 3. Liver lesions, indeterminate. Metastatic disease not excluded. Followup as clinically warranted. * Monitor * Pulmonology consult: Dr. Johns, help appreciated Status: Acute (6) History of deep vein thrombosis (DVT) of lower extremity Assessment & Plan: Surgical consult, Dr. Dewey, help appreciated. * Lovenox 100mg SC BID * As per surgery, patient received IVC filter on 05/22/17 * reevaluate thrombus and f/u LE duplex--> DVT of right gastroc. vein and superficial phlebitis of R GSV. - -Duplex of the lower extremity (05/27/17): reconfirms chronic dvt of right gastrocnemius vein and superficial phlebitis of right great saphenous vein and left LE (negative for DVT) * 05/02/17 LE Duplex: right acute thrombus of right gastrocnemius, greater saphenous, and varicose veins with reduction of the venous return. Status: Acute (7) UTI (urinary tract infection) Assessment & Plan: Resolved UA: + LE * Rocephin 1 gm IVP daily--- D/C (05/24/17) * Urine culture- no growth Repeat UA result (05/17/17): yellow hazy, 1+ protein, 1+ LE, 21 WBC, 25 Squam epith cells, Few Bacteria Status: Acute (8) Hyperlipemia Assessment & Plan: Crestor 10mg PO QHS Lipid panel: TG 92, Chol 117, LDL 65, HDL 28 Status: Chronic (9) HTN (hypertension) Assessment & Plan: Cozaar 25mg PO daily Monitor BP * 05/29/17: Low BP of 99/59 * Started on NS 0.9% @ 100mls/hr * Monitor Status: Chronic (10) Prophylactic measure Assessment & Plan: GI PPX: Protonix 40mg PO daily DVT PPX: Therapeutic lovenox [id number] --> Restarted 05/28/17---> Adjusted to 100mg SC Q12H (05/29/17) Currently on heparin ggt----> discontinued 05/28/17 Status: Acute <Dick Dozier M - Last Filed: 05/30/17 18:20> Objective - Vital Signs/Intake and Output Vital Signs (last 24 hours): Temp Pulse Resp BP Pulse Ox 98.1 F 87 20 98/59 L 96 05/30/17 16:00 05/30/17 16:00 05/30/17 16:00 05/30/17 16:00 05/30/17 16:00 Intake and Output: 05/30/17 05/30/17 06:59 18:59 Intake Total 1300 Balance 1300 - Labs Labs: 05/30/17 07:03 05/30/17 07:03 PT 13.2 SECONDS (9.7-12.2) H 05/23/17 11:36 INR 1.2 05/23/17 11:36 APTT 52 SECONDS (21-34) H D 05/28/17 06:54 Attending/Attestation - Attestation I have personally seen and examined this patient.: Yes I have fully participated in the care of the patient.: Yes I have reviewed all pertinent clinical information, including history, physical exam and plan: Yes Notes (Text): 05/30/17 18:19 Patient was seen and examined at bedside with the resident Complains of abdominal pain but is improved. Patient is tolerating diet She is status post Port-A-Cath placement Plan is for discharge to home with follow-up with the oncology for further treatment Discussed the plan of care with the resident and I agree with the history and physical and assessment/plan by the resident.
--- NOTE | 2017-05-29 12:06 | RAD ---
PROCEDURE: Intraoperative Fluoroscopy. HISTORY: Cancer. Central venous catheter placement. FINDINGS: Fluoroscopic assistance was provided for right chest wall port placement. Please refer to the operative report from
[2017-05-29] MEDS: Sodium Chloride 0.9% 1,000 ML IV SCH ×2 (12:34→21:26)
--- NOTE | 2017-05-29 14:47 | CP.PCM.CON ---
History of Present Illness - History of Present Illness History of Present Illness: Palliative consult Requested by Doctor Jacoby Box reason: emotional support and pain management Patient is a 56 yo female admitted from home with complaints of chest pain fallowed by headache and lower back pain. Patient reports having these symptoms for about 2 months. Patient did fallow up with her PMD. Patient was recently diagnosed with PE, treated for it and sent home on Coumadin. Patient reports taking OTC meds for pain such as Motrin without relief. Upon this admission CT chest was significant for pulmonary and liver nodules with possibility of metastatic disease. The liver bx was positive for adenocarcinoma. Doctor Roland onco/chemo was consulted and further treatment was suggested. Patient received Port-o-cath. Pain is managed at present by Oxycontin 20 mg BID and Dilaudid IV for breakthrough pain. PMH: HTN. PE Soc. Hx: single, lives with 19 yo daughter, unemployed, smoker for 40 years 1/2 ppd, quit smoking after was given diagnosis of cancer Fam. Hx: father from liver cancer Review of Systems - Review of Systems All systems: reviewed and no additional remarkable complaints except - Constitutional Constitutional: absent: As Per HPI, Anorexia, Chills, Daytime Sleepiness, Excessive Sweating, Fatigue, Fever, Frequent Falls, Headache, Increased Appetite , Lethargy, Malaise, Night Sweats, Snoring, Sleep Apnea, Weight Gain, Weight Loss, Weakness, Other - EENT Eyes: absent: As Per HPI, Blind Spots, Blurred Vision, Change in Vision, Decreased Night Vision, Diplopia, Discharge, Dry Eye, Exophthalmos, Floaters, Irritation, Itchy Eyes, Loss of Peripheral Vision, Pain, Photophobia, Requires Corrective Lenses, Sees Flashes, Spots in Vision, Tunnel Vision, Other Visual Disturbances, Loss of Vision, Other Ears: absent: As Per HPI, Decreased Hearing, Ear Discharge, Ear Pain, Tinnitus, Abnormal Hearing, Disequilibrium, Dizziness, Other Nose/Mouth/Throat: absent: As Per HPI, Epistaxis, Nasal Congestion, Nasal Discharge, Nasal Obstruction, Nasal Trauma, Nose Pain, Post Nasal Drip, Sinus Pain, Sinus Pressure, Bleeding Gums, Change in Voice, Dental Pain, Dry Mouth, Dysphagia, Halitosis, Hoarsness, Lip Swelling, Mouth Lesions, Mouth Pain, Odynophagia, Sore Throat, Throat Swelling, Tongue Swelling, Facial Pain, Neck Pain, Neck Mass, Other - Breasts Breasts: absent: As Per HPI, Change in Shape, Mass, Pain, Nipple Discharge, Nipple Inversion, Skin Changes, Swelling, Other - Cardiovascular Cardiovascular: absent: As Per HPI, Acrocyanosis, Chest Pain, Chest Pain at Rest , Chest Pain with Activity, Claudication, Diaphoresis, Dyspnea, Dyspnea on Exertion, Edema, Irregular Heart Rhythm, Pain Radiating to Arm/Neck/Jaw, Leg Edema, Leg Ulcers, Lightheadedness, Orthopnea, Palpitations, Paroxysmal Nocturnal Dyspnea, Pedal Edema, Radiating Pain, Rapid Heart Rate, Slow Heart Rate, Syncope, Other - Respiratory Respiratory: absent: As Per HPI, Cough, Dyspnea, Hemoptysis, Dyspnea on Exertion , Wheezing, Snoring, Stridor, Pain on Inspiration, Chest Congestion, Excessive Mucous Production, Change in Mucous Color, Pain with Coughing, Other - Gastrointestinal Gastrointestinal: Constipation - Genitourinary Genitourinary: absent: As Per HPI, Change in Urinary Stream, Difficulty Urinating, Dysuria, Flank Pain, Hematuria, Pyuria, Nocturia, Urinary Incontinence, Urinary Frequency, Urinary Hesitance, Urinary Urgency, Voiding Freq/Small Amts, Freq UTI, Hx Renal/Bladder Calculi, Hx /Renal Surgery, Bladder Distension, Other - Reproductive: Female Reproductive:Female: Post Menopausal - Menstruation Menstruation: Post Menopausal - Musculoskeletal Musculoskeletal: Back Pain - Integumentary Integumentary: absent: As Per HPI, Acne, Alopecia, Bleeding Lesions, Change in Hair, Change in Nails, Change in Pigmentation, Changing Lesions, Dry Skin, Erythema, Furuncle, Hirsutism, Lesions, New Lesions, Non-Healing Lesions, Photosensitivity, Pruritus, Rash, Skin Pain, Skin Ulcer, Sores, Striae, Swelling , Unusual Bruising, Wounds, Jaundice, Other - Neurological Neurological: absent: As Per HPI, Abnormal Gait, Abnormal Hearing, Abnormal Movements, Abnormal Speech, Behavioral Changes, Burning Sensations, Confusion, Convulsions, Disequilibrium, Dizziness, Numbness, Focal Weakness, Frequent Falls , Headaches, Lack of Coordination, Loss of Vision, Memory Loss, Paresthesias, Radicular Pain, Restless Legs, Sensory Deficit, Syncope, Tingling, Tremor, Vertigo, Weakness, Other Visual Disturbances, Other - Psychiatric Psychiatric: Anxiety - Endocrine Endocrine: absent: As Per HPI, Change in Body Appearance, Change in Libido, Cold Intolorance, Deepening of Voice, Excessive Sweating, Fatigue, Flushing, Heat Intolorance, Increase in Ring/Shoe/Hat Size, Palpitations, Polydipsia, Polyphagia, Polyuria, Other - Hematologic/Lymphatic Hematologic: absent: As Per HPI, Easy Bleeding, Easy Bruising, Lymphadenopathy, Other Past Patient History - Past Medical History & Family History Past Medical History?: Yes - Past Social History Smoking Status: Light Smoker < 10 Cigarettes Daily - CARDIAC Hx Hypercholesterolemia: Yes Hx Hypertension: Yes - PULMONARY Hx Respiratory Disorders: No - NEUROLOGICAL Hx Neurological Disorder: No - HEENT Hx HEENT Problems: Yes Other/Comment: GLASSES FOR READING - RENAL Hx Chronic Kidney Disease: No - ENDOCRINE/METABOLIC Hx Endocrine Disorders: No - HEMATOLOGICAL/ONCOLOGICAL Hx Blood Disorders: No - INTEGUMENTARY Hx Dermatological Problems: No - MUSCULOSKELETAL/RHEUMATOLOGICAL Hx Musculoskeletal Disorders: No Hx Falls: No - GASTROINTESTINAL Hx Gastrointestinal Disorders: No - GENITOURINARY/GYNECOLOGICAL Hx Genitourinary Disorders: No - PSYCHIATRIC Hx Substance Use: No - SURGICAL HISTORY Hx Surgeries: No Other/Comment: CYST LEFT BREAST YEARS - ANESTHESIA Hx Anesthesia: No Meds Allergies/Adverse Reactions: Allergies Allergy/AdvReac Type Severity Reaction Status Date / Time No Known Allergies Allergy Verified 05/02/17 15:29 - Medications Medications: Current Medications Acetaminophen (Tylenol 325mg Tab) 650 mg PO Q6 PRN PRN Reason: Pain, Mild (1-3) Last Admin: 05/25/17 00:32 Dose: 650 mg Aspirin (Ecotrin) 81 mg PO DAILY [facility] Last Admin: 05/29/17 10:13 Dose: 81 mg Enoxaparin Sodium (Lovenox) 100 mg SC Q12 [facility] Hydromorphone HCl (Dilaudid) 1 mg IVP Q3H PRN PRN Reason: Pain, severe (8-10) Last Admin: 05/29/17 07:38 Dose: 1 mg Sodium Chloride (Sodium Chloride 0.9%) 1,000 mls @ 100 mls/hr IV .Q10H [facility] Last Admin: 05/29/17 12:34 Dose: 100 mls/hr Losartan Potassium (Cozaar) 25 mg PO DAILY [facility] Last Admin: 05/29/17 10:13 Dose: 25 mg Nystatin (Mycostatin Cream) 1 ea TOP TID [facility] Last Admin: 05/29/17 10:13 Dose: 1 applic Ondansetron HCl (Zofran Inj) 4 mg IVP Q6 PRN PRN Reason: Nausea/Vomiting Oxycodone HCl (Oxycontin Extended Release Tab) 20 mg PO Q12 [facility] Last Admin: 05/29/17 10:22 Dose: 20 mg Pantoprazole Sodium (Protonix Ec Tab) 40 mg PO DAILY [facility] Last Admin: 05/29/17 10:13 Dose: 40 mg Potassium Chloride (K-Dur 20 Meq Er Tab) 20 meq PO DAILY [facility] Last Admin: 05/29/17 10:13 Dose: 20 meq Rosuvastatin Calcium (Crestor) 10 mg PO HS [facility] Last Admin: 05/28/17 21:08 Dose: 10 mg Simethicone (Mylicon Chew Tab) 80 mg PO QID [facility] Last Admin: 05/29/17 10:13 Dose: 80 mg Physical Exam - Constitutional Appears: No Acute Distress - Head Exam Head Exam: ATRAUMATIC, NORMAL INSPECTION, NORMOCEPHALIC - Eye Exam Eye Exam: Normal appearance, PERRL Pupil Exam: NORMAL ACCOMODATION, PERRL - ENT Exam ENT Exam: Mucous Membranes Moist, Normal Exam - Neck Exam Neck exam: Positive for: Normal Inspection - Respiratory Exam Respiratory Exam: Decreased Breath Sounds, Clear to Auscultation Bilateral, NORMAL BREATHING PATTERN - Cardiovascular Exam Cardiovascular Exam: REGULAR RHYTHM, +S1, +S2 - GI/Abdominal Exam GI & Abdominal Exam: Normal Bowel Sounds, Soft - Rectal Exam Rectal Exam: Deferred - Extremities Exam Extremities exam: Positive for: normal inspection, pedal pulses present - Back Exam Back exam: NORMAL INSPECTION, tenderness - Neurological Exam Neurological exam: Alert, CN II-XII Intact, Oriented x3 - Psychiatric Exam Psychiatric exam: Anxious, Normal Affect, Normal Mood - Skin Skin Exam: Dry, Intact, Normal Color, Warm Results - Vital Signs Recent Vital Signs: Last Vital Signs Temp 98.3 F 05/29/17 08:28 Pulse 90 05/29/17 08:28 Resp 18 05/29/17 08:28 BP 99/59 L 05/29/17 08:28 Pulse Ox 97 05/29/17 08:28 - Labs Result Diagrams: 05/29/17 06:43 05/29/17 06:43 Labs: Laboratory Results - last 24 hr 05/29/17 05/29/17 06:43 06:43 WBC 9.1 RBC 3.26 L Hgb 9.6 L Hct 29.3 L MCV 89.8 MCH 29.6 MCHC 32.9 L RDW 14.1 Plt Count 135 MPV 8.9 Neut % (Auto) 75.4 H Lymph % (Auto) 11.9 L [place] % (Auto) 10.0 Eos % (Auto) 1.9 Baso % (Auto) 0.8 Neut # 6.8 Lymph # 1.1 [place] # 0.9 H Eos # 0.2 Baso # 0.1 Sodium 132 Potassium 4.0 Chloride 93 L Carbon Dioxide 26 Anion Gap 17 BUN 11 Creatinine 1.3 H Est GFR ( Amer) 51 Est GFR (Non-Af Amer) 42 Random Glucose 94 Calcium 8.1 L Total Bilirubin 1.3 AST 75 H D ALT 48 Alkaline Phosphatase 297 H Total Protein 5.2 L Albumin 2.5 L Globulin 2.7 Albumin/Globulin Ratio 0.9 L Assessment & Plan - Assessment and Plan (Free Text) Assessment: Palliative consult Code status Full Code, there is no Advance directive on chart, PPS 60% I reviewed medical records, all diagnostic studies, examined and interviewed patient in the bed. Patient is alert, oriented X 3, in no acute distress with affect that is appropriate. Patient admits to feeling anxious due to recently diagnosis of cancer. Breath sounds are clear, no SOB, RR regular. Abdomen soft, active bowel sounds. Patient reports occasional constipation, relieved with prune juice. There is tenderness to lower back. Patient reports constant deep, achy pain to lower back. Patient is relieved only by the opioids. Patient tried NSAIDs at home ,without relief. Patient reports that after Dilaudid 1 mg IV her pain is < 5 for 2 -3 HR. We discussed goals of care. Patient is aware of her diagnosis and wants to stay positive. She wants to go home shopping with her daughter. I supported it as a good way to relieve anxiety. Signs and symptoms of depression reviewed with patient. I suggested that if she feels any of those, she should report to her PMD and ask for help. Patient quit smoking " cold turkey" what could attribute to her developing depression , and should be monitored for.Patient agreed. buttermaker pain management discussed. Patient is concerned about paying out of pocket for the medications. Impression * Newly diagnosed metastatic disease * Patient was given diagnosis and tries to cope with it * Lower back pain cancer related * Opioid induced constipation * Feelings of despair * At risk for depression Suggestion * Would discharge home as soon as possible; being in her environment will help patient feel in control and empowered. Patient needs family support to go trough this very difficult time for her * Total Daily Dose of pain meds ordered at present is equal to 100 mg of Morphine a day. Patient needs other means of pain management than Dilaudid IV * Fentanyl patch 50mcg is equal to 100mg of Morphine PO and would be a good choice for buttermaker pain management at home. This is also cost effective * For breakthrough pain Percocet 1-2 tb Q 4 hr * Prune juice if constipated * Monitor for signs and symptoms of depression Thank you very much for consulting Palliative care
--- NOTE | 2017-05-29 15:43 | CP.PCM.PN ---
Subjective - Date & Time of Evaluation Date of Evaluation: 05/29/17 Time of Evaluation: 11:00 - Subjective Subjective: patient seen and examined. Lying comfortably in no acute distress Status post Port-A-Cath placement Being treated for DVT and pulmonary embolism Continue present treatment and follow-up if necessary Objective - Vital Signs/Intake and Output Vital Signs (last 24 hours): Temp Pulse Resp BP Pulse Ox 98.3 F 90 18 99/59 L 97 05/29/17 08:28 05/29/17 08:28 05/29/17 08:28 05/29/17 08:28 05/29/17 08:28 Intake and Output: 05/29/17 05/29/17 06:59 18:59 Intake Total 710 Output Total 0 Balance 710 - Medications Medications: Current Medications Acetaminophen (Tylenol 325mg Tab) 650 mg PO Q6 PRN PRN Reason: Pain, Mild (1-3) Last Admin: 05/25/17 00:32 Dose: 650 mg Aspirin (Ecotrin) 81 mg PO DAILY [facility] Last Admin: 05/29/17 10:13 Dose: 81 mg Enoxaparin Sodium (Lovenox) 100 mg SC Q12 [facility] Hydromorphone HCl (Dilaudid) 1 mg IVP Q3H PRN PRN Reason: Pain, severe (8-10) Last Admin: 05/29/17 07:38 Dose: 1 mg Sodium Chloride (Sodium Chloride 0.9%) 1,000 mls @ 100 mls/hr IV .Q10H [facility] Last Admin: 05/29/17 12:34 Dose: 100 mls/hr Losartan Potassium (Cozaar) 25 mg PO DAILY [facility] Last Admin: 05/29/17 10:13 Dose: 25 mg Nystatin (Mycostatin Cream) 1 ea TOP TID [facility] Last Admin: 05/29/17 10:13 Dose: 1 applic Ondansetron HCl (Zofran Inj) 4 mg IVP Q6 PRN PRN Reason: Nausea/Vomiting Oxycodone HCl (Oxycontin Extended Release Tab) 20 mg PO Q12 [facility] Last Admin: 05/29/17 10:22 Dose: 20 mg Pantoprazole Sodium (Protonix Ec Tab) 40 mg PO DAILY [facility] Last Admin: 05/29/17 10:13 Dose: 40 mg Potassium Chloride (K-Dur 20 Meq Er Tab) 20 meq PO DAILY [facility] Last Admin: 05/29/17 10:13 Dose: 20 meq Rosuvastatin Calcium (Crestor) 10 mg PO HS [facility] Last Admin: 05/28/17 21:08 Dose: 10 mg Simethicone (Mylicon Chew Tab) 80 mg PO QID [facility] Last Admin: 05/29/17 10:13 Dose: 80 mg - Labs Labs: 05/29/17 06:43 05/29/17 06:43 PT 13.2 SECONDS (9.7-12.2) H 05/23/17 11:36 INR 1.2 05/23/17 11:36 APTT 52 SECONDS (21-34) H D 05/28/17 06:54 Assessment and Plan (1) Pulmonary emboli Status: Acute (2) Lung nodules Status: Acute (3) NSTEMI (non-ST elevated myocardial infarction) Status: Acute (4) Deep venous thrombosis of lower extremity Status: Resolved
[2017-05-29] MEDS: Enoxaparin 100 mg Syringe SC SCH (21:33)
[2017-05-30] MEDS: Sodium Chloride 0.9% 1,000 ML IV SCH ×2 (00:22→07:30)
[2017-05-30 02:10] VITALS: RESP 20
[2017-05-30] MEDS: HYDROmorphone 1 mg/ml ISec IVP PRN ×4 (05:22→16:34)
[2017-05-30 07:23] LABS: BASO # 0.1 K/uL (0.0-0.2); BASO % 0.6 % (0.0-2.0); EOS # 0.3 K/uL (0.0-0.7); EOS % 2.7 % (0.0-4.0); HEMOGLOBIN 9.4 g/dL (11.0-16.0); LYMPH % 9.8 % (20.0-40.0); MEAN CELL VOLUME 90.2 fL (81.0-99.0); MEAN CORPUSCULAR HEMOGLOBIN 29.9 pg (27.0-31.0); MEAN CORPUSCULAR HGB CONC 33.1 g/dL (33.0-37.0); MONO % 9.4 % (0.0-10.0); NEUT # 7.9 K/uL (1.8-7.0); NEUT % 77.5 % (50.0-75.0); NRBC % 0.1 % (0.0-2.0); PLATELET COUNT 141 K/uL (130-400); RBC 3.14 Mil/uL (3.80-5.20); RED CELL DISTRIBUTION WIDTH 14.2 % (11.5-14.5); WHITE BLOOD COUNT 10.2 K/uL (4.8-10.8)
[2017-05-30 07:47] LABS: ALBUMIN 2.3 g/dL (3.5-5.0)
[2017-05-30 07:48] LABS: ALB/GLOB RATIO 0.9 (1.0-2.1)
[2017-05-30 07:49] LABS: CALCIUM 7.9 mg/dl (8.6-10.4); MAGNESIUM 1.9 mg/dL (1.6-2.3)
[2017-05-30 08:13] VITALS: TEMP 98.1
[2017-05-30 08:32] LABS: BANDS 6 % (0-2); BASOPHIL 1 % (0-2); EOSINOPHIL 4 % (0-4); LYMPHOCYTE 4 % (20-40); MONOCYTE 3 % (0-10); NEUTROPHIL 82 % (50-75); PLATELET ESTIMATE NORMAL (NORMAL); TOTAL CELLS COUNTED 100
[2017-05-30 08:33] LABS: HYPOCHROMIC SLIGHT
--- NOTE | 2017-05-30 09:29 | CP.PCM.PN ---
Subjective - Date & Time of Evaluation Date of Evaluation: 05/30/17 Time of Evaluation: 09:27 - Subjective Subjective: Surgery: Dr. Dewey Patient doing well today. She is in good spirits. States she is ready togo home. She complains of some discomfort to portacath site on right neck but otherwise no complaints. Objective - Vital Signs/Intake and Output Vital Signs (last 24 hours): Temp Pulse Resp BP Pulse Ox 98.1 F 88 20 107/57 L 95 05/30/17 08:12 05/30/17 08:12 05/30/17 08:12 05/30/17 08:12 05/30/17 08:12 Intake and Output: 05/30/17 05/30/17 06:59 18:59 Intake Total 1300 Balance 1300 - Medications Medications: Current Medications Acetaminophen (Tylenol 325mg Tab) 650 mg PO Q6 PRN PRN Reason: Pain, Mild (1-3) Last Admin: 05/25/17 00:32 Dose: 650 mg Aspirin (Ecotrin) 81 mg PO DAILY [facility] Last Admin: 05/29/17 10:13 Dose: 81 mg Enoxaparin Sodium (Lovenox) 100 mg SC Q12 [facility] Last Admin: 05/29/17 21:33 Dose: 100 mg Hydromorphone HCl (Dilaudid) 1 mg IVP Q3H PRN PRN Reason: Pain, severe (8-10) Last Admin: 05/30/17 08:41 Dose: 1 mg Sodium Chloride (Sodium Chloride 0.9%) 1,000 mls @ 100 mls/hr IV .Q10H [facility] Last Admin: 05/30/17 00:22 Dose: 100 mls/hr Losartan Potassium (Cozaar) 25 mg PO DAILY [facility] Last Admin: 05/29/17 10:13 Dose: 25 mg Nystatin (Mycostatin Cream) 1 ea TOP TID [facility] Last Admin: 05/29/17 21:32 Dose: 1 applic Ondansetron HCl (Zofran Inj) 4 mg IVP Q6 PRN PRN Reason: Nausea/Vomiting Oxycodone HCl (Oxycontin Extended Release Tab) 20 mg PO Q12 [facility] Last Admin: 05/29/17 22:30 Dose: Not Given Pantoprazole Sodium (Protonix Ec Tab) 40 mg PO DAILY [facility] Last Admin: 05/29/17 10:13 Dose: 40 mg Potassium Chloride (K-Dur 20 Meq Er Tab) 20 meq PO DAILY [facility] Last Admin: 05/29/17 10:13 Dose: 20 meq Rosuvastatin Calcium (Crestor) 10 mg PO HS [facility] Last Admin: 05/29/17 22:30 Dose: 10 mg Simethicone (Mylicon Chew Tab) 80 mg PO QID [facility] Last Admin: 05/29/17 21:31 Dose: 80 mg - Labs Labs: 05/30/17 07:03 05/30/17 07:03 PT 13.2 SECONDS (9.7-12.2) H 05/23/17 11:36 INR 1.2 05/23/17 11:36 APTT 52 SECONDS (21-34) H D 05/28/17 06:54 - Constitutional Appears: Non-toxic, No Acute Distress - Head Exam Head Exam: ATRAUMATIC, NORMOCEPHALIC - Eye Exam Eye Exam: EOMI, Normal appearance - ENT Exam ENT Exam: Mucous Membranes Moist - Neck Exam Additional comments: right IJ portacath dressing CDI, no hematoma - Respiratory Exam Respiratory Exam: NORMAL BREATHING PATTERN. absent: Respiratory Distress - Cardiovascular Exam Cardiovascular Exam: REGULAR RHYTHM. absent: Tachycardia Assessment and Plan - Assessment and Plan (Free Text) Assessment: 56 y/o female s/p right IJ portacath insertion POD2 Plan: -ok to use portacath -no further surgical intervention at this time -thank you for this consult -d/w Dr. Maco Rice PGY3
[2017-05-30] MEDS: Enoxaparin 100 mg Syringe SC SCH (09:52)
[2017-05-30] MEDS: Nystatin 100,000 Units/gm Cream(15 gm) TOP SCH ×2 (09:53→13:36)
[2017-05-30] MEDS: Pantoprazole 40 mg EC Tab PO SCH (09:53)
[2017-05-30] MEDS: oxyCODONE 20 mg ER Tab (oxyCONTIN) PO SCH (09:54)
[2017-05-30] MEDS: Simethicone 80 mg Chewtab PO SCH ×2 (10:02→13:36)
[2017-05-30] MEDS: Potassium Chloride 20 mEq ER Tab PO SCH (10:05)
[2017-05-30 16:11] VITALS: BP 98/59; PULSE 87; O2SAT 96
--- NOTE | 2017-05-30 16:17 | CP.PCM.DIS ---
<Roel Mercedes E - Last Filed: 05/30/17 21:51> Provider - Provider Date of Admission: 05/14/17 01:03 Attending physician: Dick Dozier MD Time Spent in preparation of Discharge (in minutes): 45 Diagnosis - Discharge Diagnosis (1) Abdominal pain Status: Acute (2) Pulmonary emboli Status: Acute (3) NSTEMI (non-ST elevated myocardial infarction) Status: Acute (4) Liver lesion Status: Acute (5) Lung nodules Status: Acute (6) History of deep vein thrombosis (DVT) of lower extremity Status: Acute (7) UTI (urinary tract infection) Status: Acute (8) Hyperlipemia Status: Chronic (9) HTN (hypertension) Status: Chronic (10) Prophylactic measure Status: Acute Hospital Course - Lab Results Lab Results: Micro Results 05/14/17 09:00 Urine Urine Culture - Final No Growth (<1,000 CFU/ML) Most Recent Lab Values WBC 10.2 K/uL (4.8-10.8) 05/30/17 07:03 RBC 3.14 Mil/uL (3.80-5.20) L 05/30/17 07:03 Hgb 9.4 g/dL (11.0-16.0) L 05/30/17 07:03 Hct 28.3 % (34.0-47.0) L 05/30/17 07:03 MCV 90.2 fL (81.0-99.0) 05/30/17 07:03 MCH 29.9 pg (27.0-31.0) 05/30/17 07:03 MCHC 33.1 g/dL (33.0-37.0) 05/30/17 07:03 RDW 14.2 % (11.5-14.5) 05/30/17 07:03 Plt Count 141 K/uL (130-400) 05/30/17 07:03 MPV 9.0 fL (7.2-11.7) 05/30/17 07:03 Neut % (Auto) 77.5 % (50.0-75.0) H 05/30/17 07:03 Lymph % (Auto) 9.8 % (20.0-40.0) L 05/30/17 07:03 [place] % (Auto) 9.4 % (0.0-10.0) 05/30/17 07:03 Eos % (Auto) 2.7 % (0.0-4.0) 05/30/17 07:03 Baso % (Auto) 0.6 % (0.0-2.0) 05/30/17 07:03 Neut # 7.9 K/uL (1.8-7.0) H 05/30/17 07:03 Lymph # 1.0 K/uL (1.0-4.3) 05/30/17 07:03 [place] # 1.0 K/uL (0.0-0.8) H 05/30/17 07:03 Eos # 0.3 K/uL (0.0-0.7) 05/30/17 07:03 Baso # 0.1 K/uL (0.0-0.2) 05/30/17 07:03 Neutrophils % (Manual) 82 % (50-75) H 05/30/17 07:03 Band Neutrophils % 6 % (0-2) H 05/30/17 07:03 Lymphocytes % (Manual) 4 % (20-40) L 05/30/17 07:03 Monocytes % (Manual) 3 % (0-10) 05/30/17 07:03 Eosinophils % (Manual) 4 % (0-4) 05/30/17 07:03 Basophils % (Manual) 1 % (0-2) 05/30/17 07:03 Platelet Estimate Normal (NORMAL) 05/30/17 07:03 Hypochromasia (manual) Slight 05/30/17 07:03 PT 13.2 SECONDS (9.7-12.2) H 05/23/17 11:36 INR 1.2 05/23/17 11:36 APTT 52 SECONDS (21-34) H D 05/28/17 06:54 Puncture Site Rra 05/23/17 16:20 pCO2 43 mm/Hg (35-45) 05/23/17 16:20 pO2 73 mm/Hg (80-100) L 05/23/17 16:20 HCO3 29.0 mmol/L (21-28) H 05/23/17 16:20 ABG pH 7.45 (7.35-7.45) 05/23/17 16:20 ABG Total CO2 31.2 mmol/L (22-28) H 05/23/17 16:20 ABG O2 Saturation 98.6 % (95-98) H 05/23/17 16:20 ABG Base Excess 5.3 mmol/L (-2.0-3.0) H 05/23/17 16:20 ABG Hemoglobin 9.4 g/dL (11.7-17.4) L 05/23/17 16:20 ABG Carboxyhemoglobin 2.6 % (0.5-1.5) H 05/23/17 16:20 POC ABG HHb (Measured) 1.3 % (0.0-5.0) 05/23/17 16:20 ABG Methemoglobin 1.6 % (0.0-3.0) 05/23/17 16:20 Cody Test Pos 05/23/17 16:20 A-a O2 Difference 23.0 mm/Hg 05/23/17 16:20 Respiratory Index 0.3 05/23/17 16:20 Hgb O2 Saturation 94.5 % (95.0-98.0) L 05/23/17 16:20 FiO2 21.0 % 05/23/17 16:20 Sodium 132 mmol/L (132-148) 05/30/17 07:03 Potassium 4.1 mmol/L (3.6-5.2) 05/30/17 07:03 Chloride 94 mmol/L (98-107) L 05/30/17 07:03 Carbon Dioxide 25 mmol/L (22-30) 05/30/17 07:03 Anion Gap 17 (10-20) 05/30/17 07:03 BUN 14 mg/dL (7-17) 05/30/17 07:03 Creatinine 1.3 MG/DL (0.7-1.2) H 05/30/17 07:03 Est GFR ( Amer) 51 05/30/17 07:03 Est GFR (Non-Af Amer) 42 05/30/17 07:03 Random Glucose 92 mg/dL (65-105) 05/30/17 07:03 Calcium 7.9 mg/dl (8.6-10.4) L 05/30/17 07:03 Phosphorus 3.7 mg/dL (2.5-4.5) 05/30/17 07:03 Magnesium 1.9 mg/dL (1.6-2.3) 05/30/17 07:03 Iron 45 ug/dL (37-170) 05/15/17 12:23 TIBC 236 ug/dL (250-450) L 05/15/17 12:23 % Saturation 19 (20-55) L 05/15/17 12:23 Ferritin 1060.0 ng/mL 05/15/17 12:23 Total Bilirubin 1.3 mg/dL (0.2-1.3) 05/30/17 07:03 GGT 441 U/L (8-78) H 05/15/17 12:23 AST 263 U/L (14-36) H D 05/30/17 07:03 ALT 118 U/L (9-52) H D 05/30/17 07:03 Alkaline Phosphatase 283 U/L (38-126) H 05/30/17 07:03 Total Creatine Kinase 79 U/L (30-135) 05/14/17 14:47 CK-MB (Mass) 6.43 ng/mL (0.0-3.38) H 05/14/17 14:47 Troponin I 0.5120 ng/mL (0.00-0.120) H* 05/13/17 22:31 Troponin I, Quant 0.9650 ng/mL (0.00-0.120) H* 05/14/17 14:47 Total Protein 4.9 g/dL (6.3-8.3) L 05/30/17 07:03 Albumin 2.3 g/dL (3.5-5.0) L 05/30/17 07:03 Globulin 2.6 gm/dL (2.2-3.9) 05/30/17 07:03 Albumin/Globulin Ratio 0.9 (1.0-2.1) L 05/30/17 07:03 Triglycerides 92 mg/dL (0-149) 05/14/17 08:11 Cholesterol 117 mg/dL (0-199) 05/14/17 08:11 LDL Cholesterol Direct 65 mg/dL (0-129) 05/14/17 08:11 HDL Cholesterol 28 mg/dL (30-70) L 05/14/17 08:11 Alpha Fetoprotein 3.0 ng/mL (0.0-7.5) 05/15/17 12:23 Carcinoembryonic Ag 199.0 ng/mL (0-3.0) H 05/15/17 12:23 CA 19-9 Antigen > 5000 U/mL (0-37) H 05/22/17 07:19 Urine Color Yellow (YELLOW) 05/17/17 21:12 Urine Clarity Hazy (Clear) 05/17/17 21:12 Urine pH 5.0 (5.0-8.0) 05/17/17 21:12 Ur Specific [place] 1.018 (1.003-1.030) 05/17/17 21:12 Urine Protein 1+ mg/dL (NEGATIVE) H 05/17/17 21:12 Urine Glucose (UA) Normal mg/dL (Normal) 05/17/17 21:12 Urine Ketones Negative mg/dL (NEGATIVE) 05/17/17 21:12 Urine Blood Negative (NEGATIVE) 05/17/17 21:12 Urine Nitrate Negative (NEGATIVE) 05/17/17 21:12 Urine Bilirubin Negative (NEGATIVE) 05/17/17 21:12 Urine Urobilinogen Normal mg/dL (0.2-1.0) 05/17/17 21:12 Ur Leukocyte Esterase 1+ [place]/uL (Negative) H 05/17/17 21:12 Urine WBC (Auto) 21 /hpf (0-5) H 05/17/17 21:12 Urine RBC (Auto) 2 /hpf (0-3) 05/17/17 21:12 Ur Squamous Epith Cells 25 /hpf (0-5) H 05/17/17 21:12 Ur Transition Epith Cell 1 /hpf (0-3) 05/13/17 23:13 Urine Bacteria Few (<OCC) H 05/17/17 21:12 IgG 840.5 mg/dL (700.0-1600.0) 05/15/17 12:23 IgA 195.5 mg/dL (70.0-400.0) 05/15/17 12:23 IgM 50.2 mg/dL (40.0-230.0) 05/15/17 12:23 JOSE 6 Profile Negative (NEGATIVE) 05/15/17 12:26 Anti-Mitochondrial Ab Negative (Negative) 05/15/17 12:23 Anti-Smooth Muscle Ab Negative (Negative) 05/15/17 12:23 Liver/Kid Microsomes Ab <=20.0 U (<=20.0) 05/15/17 12:23 Hepatitis A IgM Ab Negative (NEGATIVE) 05/15/17 12:23 Hep Bs Antigen Negative (NEGATIVE) 05/15/17 12:23 Hep B Core IgM Ab Negative (NEGATIVE) 05/15/17 12:23 Hepatitis C Antibody Negative (NEGATIVE) 05/15/17 12:23 - Hospital Course Hospital Course: As per admission: HPI: 56F with PMHx of HTN, HLD, DVT (04/2017) presented to the ED complaining of chest pain x 1 day. She reported she woke up this morning not feeling herself with a severe headache. She had slight chest discomfort which worsened throughout the day. She reported prior to midnight tonight the chest pain became so severe she felt SOB. She discussed it as pressure like pain that radiated to her back. Upon arrival to the ED, with her recent history of DVT and new onset SOB, CTA was done and showed. Denied fever, chills, abdominal pain , n/v/d/c, or urinary symptoms. Hospital course: Patient was admitted with the consideration of pulmonary embolism with chest CT confirming the diagnosis with incidental findings of liver lesions and pulmonary lesions. Patient was then medically managed for PE. Feature Writer, Dr. Johns was consulted, who made the recommendation for consideration of an IVC filter placement. General surgery consult was placed to Dr. Dewey, due to patient's history of developing a PE while on anticoagulation, who then recommended an IVC filter placement. Cardiology, Dr. Ulloa was consulted due to patient's elevated cardiac enzymes on admission and for cardiac clearance , who then recommended continuation of medical management and Cardiac stress test, which was negative. Hematology and Oncology, Dr. Watkins was consulted, who made the recommendation for a liver mass biopsy. Intervention radiologist, Dr. Chan was consulted, who then performed a liver biopsy on 05/17/17. GI, Dr. Jean was consulted, who recommended further evaluation with triple phase CT scan of the liver and eventually a colonoscopy and endoscopy, which was done 05/24/17. As a result of all the work-ups, patient was found to have adenocarcinoma of the liver, malignancy metastasis, that is suggestive of a pancreatic billiary region. Patient was then recommended to have port-A cath placement for malignancy treatment as per hematology/oncology, . Patient had a right jugular vein port-A-cath placement on 05/28/17. During the course of admission, patient's pain was appropriately managed. Palliative Consult was placed to Nurse Practitioner, Jazmin Urbano, who counselled patient on her current diagnosis; patient was more aware of her diagnosis and wants to stay positive. Patient was discharged home with appropriate instructions for oncology follow- up care. Pertinent Study result: 1.) Chest X-ray (05/13/17): No acute consolidation 2.) Chest CT (05/13/17): Pulmonary emboli. * Pulmonary nodules, indeterminate. Metastatic disease not excluded. * Liver lesions, indeterminate. Metastatic disease not excluded. 3.) Echocardiogram( 05/14/17): Echo- normal size; EF 65-70%; LV diastolic function is normal; RV is normal size; RV systolic function is normal; LA size is normal; RA size is normal; MR is mild; TR is mild 4.) Abdominal ultrasound (05/15/17)- multiple hepatic masses, suspicious of mets; hepatosplenomegaly, fatty liver, thickened gallbladder wall; CBD: Measures 6mm, no stones and no dilation. Liver 20.1cm; diffuse increase echogenicity of the liver parenchyma, multiple ill-defined hypoechoic masses, largest approximately 3.8cm in greatest dimension; suspicious masses, spleen 13.2cm 5.) Liver CT (05/15/17): Mildly nodular hepatic contour. Borderline splenomegaly, hepatomegaly. 17mm probable splenule. Sub cm gastohepatic lymph nodes, nonspecific. 10mm probably lymph node, retroperitoneal lymph nodes measuring up to 14mm. 6.) Abdomen/Pelvic CT: multifocal hepatic mets; splenomegaly; layering gallbladder sludge; mural thickening gallbladder; upper retroperitoneal lymphadenopathy; nonacute sigmoid diverticular disease throughout majority of the colon; few scattered pulmonary nodules in B/L lung bases. 7.) Duplex scan of the lower extremity: DVT of right gastrocnemius vein and superficial phlebitis of Right gastrocnemius vein 8.) Abdomen/pelvis CT ( 05/23/17): Multifocal hepatic metastases are identified as partially identified and prior chest CT 05/14/2017. Inhomogeneous splenic enhancement may be a function of phase of contrast enhancement though metastatic changes are not excluded here either. Splenomegaly is measured up to 14.8 cm. * Layering gallbladder sludge. Mural thickening gallbladder is difficult to completely exclude however the gallbladder is not fully expanded. No definite biliary tree dilatation identified. * Upper retroperitoneal lymphadenopathy. * Nonacute sigmoid diverticular disease. Liquified fecal material seen throughout the majority of the colon. * A few scattered pulmonary nodules identified in the bilateral lung bases incidentally. Pertinent Procedure result: Ultrasound-guided percutaneous core biopsy of liver mass (05/17/17): Adenocarcinoma of the liver IVC filter placement in the right femoral vein (05/23/17) Central venous catheter placement (05/28/19) Colonoscopy (05/24/17): * Ileum, mucosa- normal * Diverticulosis in sigmoid colon and descending colon * 3 to 8mm polyps in rectum, sigmoid and descending colon * internal hemorrhoids * no colon cancer identified * Recommended f/u colonoscopy in 6 months for polypectomy Endoscopy (05/24/17): * normal esophagus, duodenum * gastritis * small hiatus hernia * multiple metastatic lesions found in left and right lobe of liver * mass in genu of pancreas- fine needle bx performed-- Pending biopsy result * many abnormal lymph nodes visualized in celiac region, peripancreatic region, and destiny-hepatis region. This is a brief summary of events. For a complete course, refer to the medical record. Discharge Exam - Head Exam Head Exam: ATRAUMATIC, NORMOCEPHALIC - Eye Exam Eye Exam: EOMI, Normal appearance - ENT Exam ENT Exam: Mucous Membranes Moist, Normal Exam - Respiratory Exam Respiratory Exam: Clear to PA & Lateral, NORMAL BREATHING PATTERN - Cardiovascular Exam Cardiovascular Exam: REGULAR RHYTHM, +S1, +S2 - GI/Abdominal Exam GI & Abdominal Exam: Normal Bowel Sounds, Soft, Tenderness - Extremities Exam Extremities exam: normal capillary refill, normal inspection - Psychiatric Exam Psychiatric exam: Depressed, Normal Affect - Skin Skin Exam: Dry, Normal Color, Warm Discharge Plan - Discharge Medications Prescriptions: oxyCODONE [oxyCONTIN Extended Release Tab] 20 mg PO BID #10 oxyCODONE/Acetaminophen [Percocet 5/325 mg Tab] 1 ea PO Q4H #30 tab Rivaroxaban [Xarelto] 15 mg PO BID #42 tab Rivaroxaban [Xarelto Starter Pack] 20 mg PO DAILY #30 tab - Follow Up Plan Condition: GUARDED Disposition: HOME/ ROUTINE Instructions: Oxycodone/Acetaminophen (By mouth), Oxycodone, Slow Release (By mouth), Rivaroxaban (By mouth), Myocardial Infarction (DC), Pulmonary Embolism ( DC), Colonoscopy (DC), Heart Healthy Diet (DC), Implanted Venous Access Port (DC ), Deep Venous Thrombosis (DC), Inferior Vena Cava Filter Placement (DC) Additional Instructions: Please discharge patient home Please start the following new medications: 1. Xarelto 15 mg PO BID for 21 days ( Finish on June 20, 2017) 2. Xarelto 20mg PO daily ( To be started on June 21, 2017) 3. Oxycontin 20mg PO BID( Please follow up with your primary care physician as this prescription for 5 days) 4. Percocet 5/325mg PO Q4h prn (Please follow up with your primary care physician as this prescription for 5 days Please Follow up with Dr. Britton (Gastroenterology) for a 6 month colonoscopy Please follow up with Dr. Watkins ( Hematology and Oncology) within a week Please follow up with your primary care doctor within a week Please return to the hospital if symptoms worsens or resume. Referrals: Emeka Watkins MD [Staff Provider] - Tobi ORTEGA,MD Alondra [Medical Doctor] - <Dick Dozier - Last Filed: 05/31/17 18:20> Provider - Provider Date of Admission: 05/14/17 01:03 Attending physician: Dick Dozier MD Hospital Course - Lab Results Lab Results: Micro Results 05/14/17 09:00 Urine Urine Culture - Final No Growth (<1,000 CFU/ML) Most Recent Lab Values WBC 10.2 K/uL (4.8-10.8) 05/30/17 07:03 RBC 3.14 Mil/uL (3.80-5.20) L 05/30/17 07:03 Hgb 9.4 g/dL (11.0-16.0) L 05/30/17 07:03 Hct 28.3 % (34.0-47.0) L 05/30/17 07:03 MCV 90.2 fL (81.0-99.0) 05/30/17 07:03 MCH 29.9 pg (27.0-31.0) 05/30/17 07:03 MCHC 33.1 g/dL (33.0-37.0) 05/30/17 07:03 RDW 14.2 % (11.5-14.5) 05/30/17 07:03 Plt Count 141 K/uL (130-400) 05/30/17 07:03 MPV 9.0 fL (7.2-11.7) 05/30/17 07:03 Neut % (Auto) 77.5 % (50.0-75.0) H 05/30/17 07:03 Lymph % (Auto) 9.8 % (20.0-40.0) L 05/30/17 07:03 [place] % (Auto) 9.4 % (0.0-10.0) 05/30/17 07:03 Eos % (Auto) 2.7 % (0.0-4.0) 05/30/17 07:03 Baso % (Auto) 0.6 % (0.0-2.0) 05/30/17 07:03 Neut # 7.9 K/uL (1.8-7.0) H 05/30/17 07:03 Lymph # 1.0 K/uL (1.0-4.3) 05/30/17 07:03 [place] # 1.0 K/uL (0.0-0.8) H 05/30/17 07:03 Eos # 0.3 K/uL (0.0-0.7) 05/30/17 07:03 Baso # 0.1 K/uL (0.0-0.2) 05/30/17 07:03 Neutrophils % (Manual) 82 % (50-75) H 05/30/17 07:03 Band Neutrophils % 6 % (0-2) H 05/30/17 07:03 Lymphocytes % (Manual) 4 % (20-40) L 05/30/17 07:03 Monocytes % (Manual) 3 % (0-10) 05/30/17 07:03 Eosinophils % (Manual) 4 % (0-4) 05/30/17 07:03 Basophils % (Manual) 1 % (0-2) 05/30/17 07:03 Platelet Estimate Normal (NORMAL) 05/30/17 07:03 Hypochromasia (manual) Slight 05/30/17 07:03 PT 13.2 SECONDS (9.7-12.2) H 05/23/17 11:36 INR 1.2 05/23/17 11:36 APTT 52 SECONDS (21-34) H D 05/28/17 06:54 Puncture Site Rra 05/23/17 16:20 pCO2 43 mm/Hg (35-45) 05/23/17 16:20 pO2 73 mm/Hg (80-100) L 05/23/17 16:20 HCO3 29.0 mmol/L (21-28) H 05/23/17 16:20 ABG pH 7.45 (7.35-7.45) 05/23/17 16:20 ABG Total CO2 31.2 mmol/L (22-28) H 05/23/17 16:20 ABG O2 Saturation 98.6 % (95-98) H 05/23/17 16:20 ABG Base Excess 5.3 mmol/L (-2.0-3.0) H 05/23/17 16:20 ABG Hemoglobin 9.4 g/dL (11.7-17.4) L 05/23/17 16:20 ABG Carboxyhemoglobin 2.6 % (0.5-1.5) H 05/23/17 16:20 POC ABG HHb (Measured) 1.3 % (0.0-5.0) 05/23/17 16:20 ABG Methemoglobin 1.6 % (0.0-3.0) 05/23/17 16:20 Cody Test Pos 05/23/17 16:20 A-a O2 Difference 23.0 mm/Hg 05/23/17 16:20 Respiratory Index 0.3 05/23/17 16:20 Hgb O2 Saturation 94.5 % (95.0-98.0) L 05/23/17 16:20 FiO2 21.0 % 05/23/17 16:20 Sodium 132 mmol/L (132-148) 05/30/17 07:03 Potassium 4.1 mmol/L (3.6-5.2) 05/30/17 07:03 Chloride 94 mmol/L (98-107) L 05/30/17 07:03 Carbon Dioxide 25 mmol/L (22-30) 05/30/17 07:03 Anion Gap 17 (10-20) 05/30/17 07:03 BUN 14 mg/dL (7-17) 05/30/17 07:03 Creatinine 1.3 MG/DL (0.7-1.2) H 05/30/17 07:03 Est GFR ( Amer) 51 05/30/17 07:03 Est GFR (Non-Af Amer) 42 05/30/17 07:03 Random Glucose 92 mg/dL (65-105) 05/30/17 07:03 Calcium 7.9 mg/dl (8.6-10.4) L 05/30/17 07:03 Phosphorus 3.7 mg/dL (2.5-4.5) 05/30/17 07:03 Magnesium 1.9 mg/dL (1.6-2.3) 05/30/17 07:03 Iron 45 ug/dL (37-170) 05/15/17 12:23 TIBC 236 ug/dL (250-450) L 05/15/17 12:23 % Saturation 19 (20-55) L 05/15/17 12:23 Ferritin 1060.0 ng/mL 05/15/17 12:23 Total Bilirubin 1.3 mg/dL (0.2-1.3) 05/30/17 07:03 GGT 441 U/L (8-78) H 05/15/17 12:23 AST 263 U/L (14-36) H D 05/30/17 07:03 ALT 118 U/L (9-52) H D 05/30/17 07:03 Alkaline Phosphatase 283 U/L (38-126) H 05/30/17 07:03 Total Creatine Kinase 79 U/L (30-135) 05/14/17 14:47 CK-MB (Mass) 6.43 ng/mL (0.0-3.38) H 05/14/17 14:47 Troponin I 0.5120 ng/mL (0.00-0.120) H* 05/13/17 22:31 Troponin I, Quant 0.9650 ng/mL (0.00-0.120) H* 05/14/17 14:47 Total Protein 4.9 g/dL (6.3-8.3) L 05/30/17 07:03 Albumin 2.3 g/dL (3.5-5.0) L 05/30/17 07:03 Globulin 2.6 gm/dL (2.2-3.9) 05/30/17 07:03 Albumin/Globulin Ratio 0.9 (1.0-2.1) L 05/30/17 07:03 Triglycerides 92 mg/dL (0-149) 05/14/17 08:11 Cholesterol 117 mg/dL (0-199) 05/14/17 08:11 LDL Cholesterol Direct 65 mg/dL (0-129) 05/14/17 08:11 HDL Cholesterol 28 mg/dL (30-70) L 05/14/17 08:11 Alpha Fetoprotein 3.0 ng/mL (0.0-7.5) 05/15/17 12:23 Carcinoembryonic Ag 199.0 ng/mL (0-3.0) H 05/15/17 12:23 CA 19-9 Antigen > 5000 U/mL (0-37) H 05/22/17 07:19 Urine Color Yellow (YELLOW) 05/17/17 21:12 Urine Clarity Hazy (Clear) 05/17/17 21:12 Urine pH 5.0 (5.0-8.0) 05/17/17 21:12 Ur Specific [place] 1.018 (1.003-1.030) 05/17/17 21:12 Urine Protein 1+ mg/dL (NEGATIVE) H 05/17/17 21:12 Urine Glucose (UA) Normal mg/dL (Normal) 05/17/17 21:12 Urine Ketones Negative mg/dL (NEGATIVE) 05/17/17 21:12 Urine Blood Negative (NEGATIVE) 05/17/17 21:12 Urine Nitrate Negative (NEGATIVE) 05/17/17 21:12 Urine Bilirubin Negative (NEGATIVE) 05/17/17 21:12 Urine Urobilinogen Normal mg/dL (0.2-1.0) 05/17/17 21:12 Ur Leukocyte Esterase 1+ [place]/uL (Negative) H 05/17/17 21:12 Urine WBC (Auto) 21 /hpf (0-5) H 05/17/17 21:12 Urine RBC (Auto) 2 /hpf (0-3) 05/17/17 21:12 Ur Squamous Epith Cells 25 /hpf (0-5) H 05/17/17 21:12 Ur Transition Epith Cell 1 /hpf (0-3) 05/13/17 23:13 Urine Bacteria Few (<OCC) H 05/17/17 21:12 IgG 840.5 mg/dL (700.0-1600.0) 05/15/17 12:23 IgA 195.5 mg/dL (70.0-400.0) 05/15/17 12:23 IgM 50.2 mg/dL (40.0-230.0) 05/15/17 12:23 JOSE 6 Profile Negative (NEGATIVE) 05/15/17 12:26 Anti-Mitochondrial Ab Negative (Negative) 05/15/17 12:23 Anti-Smooth Muscle Ab Negative (Negative) 05/15/17 12:23 Liver/Kid Microsomes Ab <=20.0 U (<=20.0) 05/15/17 12:23 Hepatitis A IgM Ab Negative (NEGATIVE) 05/15/17 12:23 Hep Bs Antigen Negative (NEGATIVE) 05/15/17 12:23 Hep B Core IgM Ab Negative (NEGATIVE) 05/15/17 12:23 Hepatitis C Antibody Negative (NEGATIVE) 05/15/17 12:23 Attending/Attestation - Attestation I have personally seen and examined this patient.: Yes I have fully participated in the care of the patient.: Yes I have reviewed all pertinent clinical information, including history, physical exam and plan: Yes Notes (Text): 05/31/17 18:19 Patient seen and examined at bedside Abdominal pain is improving Patient is tolerating diet We will discharge patient home Patient will follow with Dr. Watkins as outpatient for follow-up report of the pancreatic biopsy and also to plan further treatment of liver cancer I discussed the discharge plan in detail with the patient and she verbalized understanding All the medications were provided to the patient prior to the discharge I made discussed the discharge plan with the resident and I agree with the discharge note documented above.
== END 2017-05-30 17:00 | disposition home or self-care (01) | DRG 550 ==
LOC: C.ER 21:57 → C.9E 05-14 01:03 → C.6T 05-14 01:43
PROVIDERS: ADMIT Internal Medicine; ATTEND Internal Medicine
PROC: 06H03DZ Insertion of Intraluminal Device into Inferior Vena Cava, Percutaneous Approach (ICD-10-PCS; principal; 2017-05-17)
PROC: 0FB23ZX Excision of Left Lobe Liver, Percutaneous Approach, Diagnostic (ICD-10-PCS; 2017-05-17)
PROC: 0DJD8ZZ Inspection of Lower Intestinal Tract, Via Natural or Artificial Opening Endoscopic (ICD-10-PCS; 2017-05-24)
PROC: 0FBG4ZX Excision of Pancreas, Percutaneous Endoscopic Approach, Diagnostic (ICD-10-PCS; 2017-05-24 10:45)
PROC: 0JH60XZ Insertion of Tunneled Vascular Access Device into Chest Subcutaneous Tissue and Fascia, Open Approach (ICD-10-PCS; 2017-05-28)
PROC: 02HV33Z Insertion of Infusion Device into Superior Vena Cava, Percutaneous Approach (ICD-10-PCS; 2017-05-28)
PROC: B548ZZA Ultrasonography of Superior Vena Cava, Guidance (ICD-10-PCS; 2017-05-28)
DX: I82.4Z1 Acute embolism and thrombosis of unspecified deep veins of right distal lower extremity (principal); I26.99 Other pulmonary embolism without acute cor pulmonale; I21.4 Non-ST elevation (NSTEMI) myocardial infarction; D68.9 Coagulation defect, unspecified; C78.7 Secondary malignant neoplasm of liver and intrahepatic bile duct; C25.9 Malignant neoplasm of pancreas, unspecified; K74.60 Unspecified cirrhosis of liver; D64.9 Anemia, unspecified; N39.0 Urinary tract infection, site not specified; I10 Essential (primary) hypertension; E78.5 Hyperlipidemia, unspecified; K64.8 Other hemorrhoids; R91.1 Solitary pulmonary nodule; F10.10 Alcohol abuse, uncomplicated; R74.0 Nonspecific elevation of levels of transaminase and lactic acid dehydrogenase [LDH]; K57.30 Diverticulosis of large intestine without perforation or abscess without bleeding; K62.1 Rectal polyp; F17.210 Nicotine dependence, cigarettes, uncomplicated; Z80.0 Family history of malignant neoplasm of digestive organs; K59.03 Drug induced constipation; T40.2X5A Adverse effect of other opioids, initial encounter; Z51.5 Encounter for palliative care

== ENCOUNTER 2017-06-07 18:50 | Inpatient (IN) | payer OTHER ==
[2017-06-07] MEDS ORDERED: Sodium Chloride 0.9% 1,000 ML IV ONE (19:49)
--- NOTE | 2017-06-07 20:03 | C.PDOC ---
History Of Present Illness 56 year old female who presents to the ER with a complaint of SOB, abdominal pain, and nausea. Patient has a Hx of pancreatic CA; denies chest pain, vomiting , or diarrhea. Patient notes she has a Hx of pulmonary embolism and has IVC filter in place. Chief Complaint (Nursing): Abdominal Pain History Per: Patient History/Exam Limitations: no limitations Onset/Duration Of Symptoms: Hrs Current Symptoms Are (Timing): Still Present Location Of Pain/Discomfort: RUQ, LUQ Quality Of Discomfort: Unable To Describe Associated Symptoms: Nausea. denies: Fever, Chills, Vomiting, Diarrhea, Chest Pain Exacerbating Factors: None Alleviating Factors: None Recent travel outside of the [place]: No Abnormal Vaginal Bleeding: No Past Medical History Reviewed: Historical Data, Nursing Documentation, Vital Signs Vital Signs: Last Vital Signs Temp 99 F 06/07/17 22:35 Pulse 88 06/07/17 22:35 Resp 22 06/07/17 22:35 BP 97/63 L 06/07/17 22:35 Pulse Ox 92 L 06/07/17 23:56 - Medical History PMH: Asthma, Deep Vein Thrombosis (1 week ago), HTN, Hypercholesterolemia - [facility] Procedures EXCISION OF LEFT LOBE LIVER, PERCUTANEOUS APPROACH, DIAGN (05/14/17) EXCISION OF PANCREAS, PERC ENDO APPROACH, DIAGN (05/14/17) INSERTION OF INFUSION DEV INTO SUP VENA CAVA, PERC APPROACH (05/14/17) INSERTION OF INTRALUM DEV INTO INF VENA CAVA, PERC APPROACH (05/14/17) INSERTION OF VAD INTO CHEST SUBCU/FASCIA, OPEN APPROACH (05/14/17) INSPECTION OF LOWER INTESTINAL TRACT, ENDO (05/14/17) ULTRASONOGRAPHY OF SUPERIOR VENA CAVA, GUIDANCE (05/14/17) Family History: States: Unknown Family Hx - Social History Hx Alcohol Use: No Hx Substance Use: No - Immunization History Hx Tetanus Toxoid Vaccination: No Hx Influenza Vaccination: Yes Hx Pneumococcal Vaccination: No Review Of Systems Constitutional: Negative for: Fever, Chills Cardiovascular: Negative for: Chest Pain Respiratory: Positive for: Shortness of Breath Gastrointestinal: Positive for: Nausea, Abdominal Pain. Negative for: Vomiting Physical Exam - Physical Exam Appears: Non-toxic, Other (In distress due to the pain) Skin: Normal Color, Warm, Dry Head: Atraumatic, Normacephalic Oral Mucosa: Moist Chest: Symmetrical, No Tenderness Cardiovascular: Rhythm Regular, No Murmur Respiratory: Decreased Breath Sounds, No Rales, No Rhonchi, No Wheezing Gastrointestinal/Abdominal: Soft, Other (Upper quadrant mass tender to palpation ) Neurological/Psych: Oriented x3, Normal Speech, Normal Cognition ED Course And Treatment - Laboratory Results Result Diagrams: 06/07/17 20:05 06/07/17 20:05 O2 Sat by Pulse Oximetry: 92 Progress Note: EKG, blood work, and CXR ordered. Dilaudid and IV fluids administered. Disposition Discussed With : Conrad Haynes Doctor Will See Patient In The: Hospital Counseled Patient/Family Regarding: Diagnosis - Disposition Disposition: HOSPITALIZED Disposition Time: 23:56 Condition: STABLE - POA Present On Arrival: None - Clinical Impression Clinical Impression: Abdominal pain, Pancreatic cancer, Chest pain - Scribe Statement The provider has reviewed the documentation as recorded by the Scribe Abdulkadir Jeffers All medical record entries made by the Scribe were at my direction and personally dictated by me. I have reviewed the chart and agree that the record accurately reflects my personal performance of the history, physical exam, medical decision making, and the department course for this patient. I have also personally directed, reviewed, and agree with the discharge instructions and disposition.
[2017-06-07] MEDS ORDERED: Sodium Chloride 0.9% 1,000 ML ONE (20:08)
[2017-06-07 20:11] LABS: BASO # 0.1 K/uL (0.0-0.2); BASO % 0.7 % (0.0-2.0); EOS # 0.2 K/uL (0.0-0.7); EOS % 1.3 % (0.0-4.0); HEMATOCRIT 31.9 % (34.0-47.0); LYMPH # 1.3 K/uL (1.0-4.3); MEAN CELL VOLUME 89.8 fL (81.0-99.0); MEAN CORPUSCULAR HEMOGLOBIN 29.4 pg (27.0-31.0); MEAN CORPUSCULAR HGB CONC 32.7 g/dL (33.0-37.0); MEAN PLATELET VOLUME 8.2 fL (7.2-11.7); MONO # 1.1 K/uL (0.0-0.8); RED CELL DISTRIBUTION WIDTH 15.8 % (11.5-14.5)
[2017-06-07 20:13] LABS: PLATELET COUNT 116 K/uL (130-400); WHITE BLOOD COUNT 16.1 K/uL (4.8-10.8)
[2017-06-07 20:19] LABS: CHLORIDE 94 mmol/L (98-107); POTASSIUM 4.5 mmol/L (3.6-5.2); SODIUM 132 mmol/L (132-148)
[2017-06-07 20:21] LABS: AST/SGOT 93 U/L (14-36); BILIRUBIN,TOTAL 2.2 mg/dL (0.2-1.3); CARBON DIOXIDE 22 mmol/L (22-30); GFR AFRICAN-AMERICAN > 60
[2017-06-07 20:22] LABS: ALB/GLOB RATIO 0.8 (1.0-2.1); ALKALINE PHOSPHATASE 626 U/L (38-126); ALT/SGPT 55 U/L (9-52); BLOOD UREA NITROGEN 20 mg/dL (7-17); GLUCOSE,RANDOM 100 mg/dL (65-105); TOTAL PROTEIN 5.6 g/dL (6.3-8.3)
[2017-06-07 20:50] LABS: EOSINOPHIL 2 % (0-4); NEUTROPHIL 85 % (50-75); TOTAL CELLS COUNTED 100
[2017-06-07] MEDS ORDERED: Iohexol 300 100 ML IJ ONE (21:21)
--- NOTE | 2017-06-08 00:26 | CT ---
EXAM: CT Angiography Chest With Intravenous Contrast CLINICAL HISTORY: 56 years old, female; Pain; Chest pain; Type not specified TECHNIQUE: Axial computed tomographic angiography images of the chest with intravenous contrast using pulmonary embolism protocol. This CT exam was performed using one or more of the following dose reduction techniques: automated exposure control, adjustment of the mA and/or kV according to patient size, and/or use of iterative reconstruction technique. MIP reconstructed images were created and reviewed. Coronal and sagittal reformatted images were created and reviewed. CONTRAST: 100 mL of omnipaque 300 administered intravenously. EXAM DATE/TIME: 06/07/2017 8:58 PM COMPARISON: CT - ANGIO CHEST PE PROTOCOL 05/14/2017 12:14:52 AM FINDINGS: Right-sided destiny catheter with tip in SVC. There are rounded hypoattenuating filling defects in numerous branches of the pulmonary arteries bilaterally, more prominent in the lower lungs, similar to prior study consistent with pulmonary emboli. Please note bolus timing is performed such that the aorta is optimally opacified rather than the pulmonary arteries. No aortic dissection or aneurysm. No pleural or pericardial effussions. There are multiple bilateral pulmonary nodules that have not changed significantly in size or number since the prior study. Metastatic disease cannot be excluded.Follow up based on [place] criteria. The liver is enlarged and heterogeneous.. There are hypoattenuating lesions better seen on recent CT abdomen gallstone with optimized for evaluation of abdominal solid organs. There is heterogeneity of the spleen with numerous areas of low attenuation, the appearance supportive of splenic infarcts. This finding was discussed in prior report. There has been continued evolution of the infarcts with the largest involving the anterior spleen measuring approximately 6 x 4.5 cm increased in size from prior. There is perihepatic and perisplenic fluid increased from prior. IMPRESSION: Bilateral pulmonary emboli similar to prior. Bilateral pulmonary nodules similar to prior. Heterogeneous liver with multiple low attenuation lesions consistent with metastatic disease better seen on prior as discussed above. Multiple hypoattenuating areas in the spleen consistent with infarcts, a finding that was present on prior however there has been continued evolution of the infarcts, all of which have increased in size. Perihepatic and perisplenic fluid increased from prior.
[2017-06-08] MEDS: oxyCODONE 20 mg ER Tab (oxyCONTIN) PO SCH ×3 (01:31→22:31)
--- NOTE | 2017-06-08 08:51 | RAD ---
PROCEDURE: CHEST RADIOGRAPH, 1 VIEW HISTORY: Chest pain COMPARISON: 05/13/2017. FINDINGS: The right MediPort terminates in the SVC. LUNGS: The lungs are well inflated and clear. PLEURA: No pneumothorax or pleural fluid seen. CARDIOVASCULAR: Normal. OSSEOUS STRUCTURES: No significant abnormalities. VISUALIZED UPPER ABDOMEN: Normal. OTHER FINDINGS: None. IMPRESSION: The right MediPort terminates in the SVC. No acute findings.
[2017-06-08] MEDS: HYDROmorphone 1 mg/ml ISec IVP PRN (13:47)
--- NOTE | 2017-06-08 17:01 | CP.PCM.CON ---
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 The patient was seen in my office yesterday and complain of dyspnea on exertion and chest pain. She was sent to the hospital via EMS. A CT scan of the chest revealed stable pulmonary nodules and stable PE's. She did have new lesions in the spleen with infarction. She currently reports to feeling better with pain medication. She is hopeful chemotherapy will aide in palliating her symptoms. Past medical history: DVT/PE, pancreatic cancer Past surgical history: Portacath Family history: Denies hematologic and oncology problems Social history: FOrmer tobacco abuse, denies alcohol, and illicit drug use. Allergies: NKA Review of systems: All remaining review of systems including HEENT, cardiovascular, respiratory, gastrointestinal, genitourinary, musculoskeleletal , dermatologic, neurologic, and psychiatric are negative unless mentioned in the HPI. Past Patient History - Past Medical History & Family History Past Medical History?: Yes - Past Social History Smoking Status: Former Smoker - CARDIAC Hx Cardiac Disorders: Yes Hx Hypercholesterolemia: Yes Hx Hypertension: Yes - PULMONARY Hx Respiratory Disorders: Yes Hx Asthma: Yes - NEUROLOGICAL Hx Neurological Disorder: No - HEENT Hx HEENT Problems: Yes Other/Comment: GLASSES FOR READING - RENAL Hx Chronic Kidney Disease: No - ENDOCRINE/METABOLIC Hx Endocrine Disorders: No - HEMATOLOGICAL/ONCOLOGICAL Hx Blood Disorders: No - INTEGUMENTARY Hx Dermatological Problems: No - MUSCULOSKELETAL/RHEUMATOLOGICAL Hx Musculoskeletal Disorders: No Hx Falls: No - GASTROINTESTINAL Hx Gastrointestinal Disorders: No - GENITOURINARY/GYNECOLOGICAL Hx Genitourinary Disorders: No - PSYCHIATRIC Hx Psychophysiologic Disorder: No Hx Substance Use: No - SURGICAL HISTORY Hx Surgeries: Yes Hx Vascular Access Device: Yes (portacath- R subclavian) Other/Comment: CYST LEFT BREAST YEARS. IVC filter - R leg - ANESTHESIA Hx Anesthesia: Yes Hx Anesthesia Reactions: No Hx Malignant Hyperthermia: No Meds Allergies/Adverse Reactions: Allergies Allergy/AdvReac Type Severity Reaction Status Date / Time No Known Allergies Allergy Verified 06/07/17 19:15 - Medications Medications: Current Medications Hydromorphone HCl (Dilaudid) 1 mg IVP Q4H PRN PRN Reason: Pain, moderate (4-7) Last Admin: 06/08/17 13:47 Dose: 1 mg Losartan Potassium (Cozaar) 25 mg PO DAILY [facility] Last Admin: 06/08/17 10:55 Dose: Not Given Ondansetron HCl (Zofran Inj) 4 mg IVP Q4 PRN PRN Reason: Nausea/Vomiting Oxycodone HCl (Oxycontin Extended Release Tab) 20 mg PO Q12 [facility] Last Admin: 06/08/17 12:24 Dose: 20 mg Rivaroxaban (Xarelto) 20 mg PO DAILY [facility] Last Admin: 06/08/17 10:57 Dose: 20 mg Physical Exam - Head Exam Head Exam: ATRAUMATIC - Eye Exam Eye Exam: Normal appearance - ENT Exam ENT Exam: Mucous Membranes Dry - Respiratory Exam Respiratory Exam: NORMAL BREATHING PATTERN - Cardiovascular Exam Cardiovascular Exam: +S1, +S2 - GI/Abdominal Exam GI & Abdominal Exam: Normal Bowel Sounds - Extremities Exam Extremities exam: Positive for: normal inspection - Neurological Exam Neurological exam: Oriented x3 - Psychiatric Exam Psychiatric exam: Normal Affect, Normal Mood - Skin Skin Exam: Warm Results - Vital Signs Recent Vital Signs: Last Vital Signs Temp 98.4 F 06/08/17 10:54 Pulse 94 H 06/08/17 13:46 Resp 18 06/08/17 10:54 BP 102/64 06/08/17 13:46 Pulse Ox 94 L 06/08/17 10:54 - Labs Result Diagrams: 06/07/17 20:05 06/07/17 20:05 Assessment & Plan (1) Pancreatic cancer Assessment and Plan: liver, lung, splenic metastasis outpatient chemotherapy Status: Acute (2) Anemia Assessment and Plan: chronic disease Status: Acute (3) Thrombocytopenia Assessment and Plan: mild cont. to monitor Status: Acute (4) Leukocytosis Assessment and Plan: likely reactive to malignancy Thank you for this interesting consult. Status: Acute
[2017-06-08] MEDS ORDERED: HYDROmorphone 1 mg/ml ISec IVP ONE (18:30)
--- NOTE | 2017-06-08 22:48 | CP.PCM.PN ---
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 The patient was seen in my office yesterday and complain of dyspnea on exertion and chest pain. She was sent to the hospital via EMS. A CT scan of the chest revealed stable pulmonary nodules and stable PE's. She did have new lesions in the spleen with infarction. She currently reports to feeling better with pain medication. She is hopeful chemotherapy will aide in palliating her symptoms. Past medical history: DVT/PE, pancreatic cancer Past surgical history: Portacath Family history: Denies hematologic and oncology problems Social history: FOrmer tobacco abuse, denies alcohol, and illicit drug use. Allergies: NKA Review of systems: All remaining review of systems including HEENT, cardiovascular, respiratory, gastrointestinal, genitourinary, musculoskeleletal , dermatologic, neurologic, and psychiatric are negative unless mentioned in the HPI. Objective - Vital Signs/Intake and Output Vital Signs (last 24 hours): Temp Pulse Resp BP Pulse Ox 98.4 F 94 H 18 102/64 94 L 06/08/17 10:54 06/08/17 13:46 06/08/17 10:54 06/08/17 13:46 06/08/17 10:54 Intake and Output: 06/08/17 06/09/17 18:59 06:59 Intake Total 400 Balance 400 - Medications Medications: Current Medications Hydromorphone HCl (Dilaudid) 1 mg IVP Q4H PRN PRN Reason: Pain, moderate (4-7) Last Admin: 06/08/17 13:47 Dose: 1 mg Losartan Potassium (Cozaar) 25 mg PO DAILY [facility] Last Admin: 06/08/17 10:55 Dose: Not Given Ondansetron HCl (Zofran Inj) 4 mg IVP Q4 PRN PRN Reason: Nausea/Vomiting Oxycodone HCl (Oxycontin Extended Release Tab) 20 mg PO Q12 [facility] Last Admin: 06/08/17 22:31 Dose: 20 mg Rivaroxaban (Xarelto) 20 mg PO DAILY [facility] Last Admin: 06/08/17 10:57 Dose: 20 mg
[2017-06-09 00:24] VITALS: RESP 20
[2017-06-09] MEDS: HYDROmorphone 1 mg/ml ISec IVP PRN ×3 (06:27→20:06)
[2017-06-09] MEDS: oxyCODONE 20 mg ER Tab (oxyCONTIN) PO SCH ×2 (10:56→22:31)
--- NOTE | 2017-06-09 17:53 | CP.PCM.PN ---
Subjective - Date & Time of Evaluation Date of Evaluation: 06/09/17 Time of Evaluation: 17:00 - Subjective Subjective: Feeling better, less pain. Objective - Vital Signs/Intake and Output Vital Signs (last 24 hours): Temp Pulse Resp BP Pulse Ox 98.4 F 93 H 20 112/68 94 L 06/09/17 17:01 06/09/17 17:01 06/09/17 17:01 06/09/17 17:01 06/09/17 17:01 Intake and Output: 06/09/17 06/09/17 06:59 18:59 Intake Total 470 350 Balance 470 350 - Medications Medications: Current Medications Hydromorphone HCl (Dilaudid) 1 mg IVP Q4H PRN PRN Reason: Pain, moderate (4-7) Last Admin: 06/09/17 16:09 Dose: 1 mg Ondansetron HCl (Zofran Inj) 4 mg IVP Q4 PRN PRN Reason: Nausea/Vomiting Oxycodone HCl (Oxycontin Extended Release Tab) 20 mg PO Q12 [facility] Last Admin: 06/09/17 10:56 Dose: 20 mg Rivaroxaban (Xarelto) 20 mg PO DAILY [facility] Last Admin: 06/09/17 10:56 Dose: 20 mg - Head Exam Head Exam: ATRAUMATIC - Eye Exam Eye Exam: Normal appearance - ENT Exam ENT Exam: Mucous Membranes Dry - Respiratory Exam Respiratory Exam: NORMAL BREATHING PATTERN - Cardiovascular Exam Cardiovascular Exam: +S1, +S2 - GI/Abdominal Exam GI & Abdominal Exam: Normal Bowel Sounds - Extremities Exam Extremities Exam: Pedal Edema Assessment and Plan (1) Pancreatic cancer Assessment & Plan: stage IV outpatient chemotherapy Status: Acute (2) Anemia Assessment & Plan: chronic disease Status: Acute (3) Thrombocytopenia Assessment & Plan: mild, cont. to monitor Status: Acute (4) Leukocytosis Assessment & Plan: likely reactive to malignancy Status: Acute
--- NOTE | 2017-06-09 22:29 | CP.PCM.PN ---
Subjective - Date & Time of Evaluation Date of Evaluation: 06/09/17 Time of Evaluation: 10:00 - Subjective Subjective: pT SEEN AND EVALAUTED, FEELING BETTER Objective - Vital Signs/Intake and Output Vital Signs (last 24 hours): Temp Pulse Resp BP Pulse Ox 98.4 F 93 H 20 112/68 94 L 06/09/17 17:01 06/09/17 17:01 06/09/17 17:01 06/09/17 17:01 06/09/17 17:01 Intake and Output: 06/09/17 06/10/17 18:59 06:59 Intake Total 350 Balance 350 - Medications Medications: Current Medications Famotidine (Pepcid) 20 mg PO BID [facility] Last Admin: 06/09/17 20:06 Dose: 20 mg Hydromorphone HCl (Dilaudid) 1 mg IVP Q4H PRN PRN Reason: Pain, moderate (4-7) Last Admin: 06/09/17 20:06 Dose: 1 mg Ondansetron HCl (Zofran Inj) 4 mg IVP Q4 PRN PRN Reason: Nausea/Vomiting Oxycodone HCl (Oxycontin Extended Release Tab) 20 mg PO Q12 [facility] Last Admin: 06/09/17 10:56 Dose: 20 mg Rivaroxaban (Xarelto) 20 mg PO DAILY [facility] Last Admin: 06/09/17 10:56 Dose: 20 mg Assessment and Plan (1) Abdominal pain Status: Acute (2) Leukocytosis Status: Acute (3) Pancreatic cancer Status: Acute (4) Thrombocytopenia Status: Acute - Assessment and Plan (Free Text) Assessment: Assessment and Plan (1) Pancreatic cancer Assessment & Plan: stage IV outpatient chemotherapy Status: Acute (2) Anemia Assessment & Plan: chronic disease Status: Acute (3) Thrombocytopenia Assessment & Plan: mild, cont. to monitor Status: Acute (4) Leukocytosis Assessment & Plan: likely reactive to malignancy Status: Acute
[2017-06-10] MEDS: HYDROmorphone 1 mg/ml ISec IVP PRN ×3 (02:09→18:46)
[2017-06-10 06:27] LABS: HEMATOCRIT 28.8 % (34.0-47.0); MEAN CELL VOLUME 90.7 fL (81.0-99.0); MEAN CORPUSCULAR HEMOGLOBIN 30.3 pg (27.0-31.0); MEAN CORPUSCULAR HGB CONC 33.4 g/dL (33.0-37.0); MEAN PLATELET VOLUME 8.9 fL (7.2-11.7); RED CELL DISTRIBUTION WIDTH 16.4 % (11.5-14.5); WHITE BLOOD COUNT 11.5 K/uL (4.8-10.8)
[2017-06-10 06:41] LABS: ALB/GLOB RATIO 0.9 (1.0-2.1); ALKALINE PHOSPHATASE 678 U/L (38-126); ALT/SGPT 51 U/L (9-52); AST/SGOT 98 U/L (14-36); BILIRUBIN,TOTAL 1.7 mg/dL (0.2-1.3); BLOOD UREA NITROGEN 28 mg/dL (7-17); CALCIUM 7.6 mg/dl (8.6-10.4); CARBON DIOXIDE 26 mmol/L (22-30); CHLORIDE 94 mmol/L (98-107); GFR AFRICAN-AMERICAN > 60; GLUCOSE,RANDOM 88 mg/dL (65-105); POTASSIUM 4.4 mmol/L (3.6-5.2); SODIUM 130 mmol/L (132-148); TOTAL PROTEIN 4.6 g/dL (6.3-8.3)
[2017-06-10] MEDS: oxyCODONE 20 mg ER Tab (oxyCONTIN) PO SCH ×2 (09:28→22:35)
--- NOTE | 2017-06-10 14:31 | CARD ---
APPROVED REPORT EKG Measurement Heart [id number] ME [id number] [id number] <Conclusion> Sinus tachycardia T wave abnormality, consider inferior ischemia Abnormal ECG
--- NOTE | 2017-06-10 23:37 | CP.PCM.PN ---
Subjective - Date & Time of Evaluation Date of Evaluation: 06/10/17 Time of Evaluation: 20:00 - Subjective Subjective: PT SEEN AND EVALUATED, FEELING BETTER Objective - Vital Signs/Intake and Output Vital Signs (last 24 hours): Temp Pulse Resp BP Pulse Ox 98.4 F 90 20 98/58 L 93 L 06/10/17 15:07 06/10/17 15:07 06/10/17 15:07 06/10/17 15:07 06/10/17 15:07 Intake and Output: 06/10/17 06/11/17 18:59 06:59 Intake Total 400 300 Balance 400 300 - Medications Medications: Current Medications Famotidine (Pepcid) 20 mg PO BID [facility] Last Admin: 06/10/17 17:46 Dose: 20 mg Hydromorphone HCl (Dilaudid) 1 mg IVP Q4H PRN PRN Reason: Pain, moderate (4-7) Last Admin: 06/10/17 18:46 Dose: 1 mg Ondansetron HCl (Zofran Inj) 4 mg IVP Q4 PRN PRN Reason: Nausea/Vomiting Oxycodone HCl (Oxycontin Extended Release Tab) 20 mg PO Q12 [facility] Last Admin: 06/10/17 22:35 Dose: 20 mg Rivaroxaban (Xarelto) 20 mg PO DAILY [facility] Last Admin: 06/10/17 09:28 Dose: 20 mg - Labs Labs: 06/10/17 06:06 06/10/17 06:06 - Constitutional Appears: No Acute Distress - Head Exam Head Exam: ATRAUMATIC, NORMAL INSPECTION, NORMOCEPHALIC - Eye Exam Eye Exam: EOMI, Normal appearance, PERRL Pupil Exam: NORMAL ACCOMODATION, PERRL - Respiratory Exam Respiratory Exam: Clear to Ausculation Bilateral, NORMAL BREATHING PATTERN - Cardiovascular Exam Cardiovascular Exam: REGULAR RHYTHM, +S1, +S2. absent: Murmur - GI/Abdominal Exam GI & Abdominal Exam: Soft, Normal Bowel Sounds. absent: Tenderness Assessment and Plan (1) Abdominal pain Status: Acute (2) Chest pain Status: Acute (3) Leukocytosis Status: Acute (4) Pancreatic cancer Status: Acute (5) Thrombocytopenia Status: Acute - Assessment and Plan (Free Text) Assessment: Assessment and Plan (1) Pancreatic cancer Assessment & Plan: stage IV outpatient chemotherapy Status: Acute (2) Anemia Assessment & Plan: chronic disease Status: Acute (3) Thrombocytopenia Assessment & Plan: mild, cont. to monitor Status: Acute (4) Leukocytosis Assessment & Plan: likely reactive to malignancy Status: Acute
[2017-06-11] MEDS: oxyCODONE 20 mg ER Tab (oxyCONTIN) PO SCH ×2 (09:45→21:10)
[2017-06-11] MEDS: HYDROmorphone 1 mg/ml ISec IVP PRN ×2 (11:44→17:00)
[2017-06-11] MEDS ORDERED: Enoxaparin 100 mg Syringe SC SCH (15:00)
--- NOTE | 2017-06-11 19:37 | CP.PCM.PN ---
Subjective - Date & Time of Evaluation Date of Evaluation: 06/10/17 Time of Evaluation: 21:00 - Subjective Subjective: Pain better controlled Objective - Vital Signs/Intake and Output Vital Signs (last 24 hours): Temp Pulse Resp BP Pulse Ox 97.7 F 90 20 98/60 L 93 L 06/11/17 16:20 06/11/17 16:20 06/11/17 16:20 06/11/17 16:20 06/11/17 16:20 - Medications Medications: Current Medications Enoxaparin Sodium (Lovenox) 150 mg SC DAILY [facility] Famotidine (Pepcid) 20 mg PO BID [facility] Last Admin: 06/11/17 18:19 Dose: 20 mg Hydromorphone HCl (Dilaudid) 1 mg IVP Q4H PRN PRN Reason: Pain, moderate (4-7) Last Admin: 06/11/17 17:00 Dose: 1 mg Ondansetron HCl (Zofran Inj) 4 mg IVP Q4 PRN PRN Reason: Nausea/Vomiting Oxycodone HCl (Oxycontin Extended Release Tab) 40 mg PO Q12 [facility] - Labs Labs: 06/10/17 06:06 06/10/17 06:06 - Head Exam Head Exam: ATRAUMATIC - Eye Exam Eye Exam: Normal appearance - ENT Exam ENT Exam: Mucous Membranes Dry - Respiratory Exam Respiratory Exam: NORMAL BREATHING PATTERN - Cardiovascular Exam Cardiovascular Exam: +S1, +S2 - GI/Abdominal Exam GI & Abdominal Exam: Normal Bowel Sounds - Extremities Exam Extremities Exam: Pedal Edema Assessment and Plan (1) Pancreatic cancer Assessment & Plan: stage IV liver metastasis Status: Acute (2) Anemia Assessment & Plan: chronic disease Status: Acute (3) Thrombocytopenia Assessment & Plan: mild cont. to monitor Status: Acute (4) Leukocytosis Assessment & Plan: mild improved likely reactive Status: Acute
--- NOTE | 2017-06-11 19:38 | CP.PCM.PN ---
Subjective - Date & Time of Evaluation Date of Evaluation: 06/11/17 Time of Evaluation: 14:10 - Subjective Subjective: Pain better controlled Objective - Vital Signs/Intake and Output Vital Signs (last 24 hours): Temp Pulse Resp BP Pulse Ox 97.7 F 90 20 98/60 L 93 L 06/11/17 16:20 06/11/17 16:20 06/11/17 16:20 06/11/17 16:20 06/11/17 16:20 - Medications Medications: Current Medications Enoxaparin Sodium (Lovenox) 150 mg SC DAILY [facility] Famotidine (Pepcid) 20 mg PO BID [facility] Last Admin: 06/11/17 18:19 Dose: 20 mg Hydromorphone HCl (Dilaudid) 1 mg IVP Q4H PRN PRN Reason: Pain, moderate (4-7) Last Admin: 06/11/17 17:00 Dose: 1 mg Ondansetron HCl (Zofran Inj) 4 mg IVP Q4 PRN PRN Reason: Nausea/Vomiting Oxycodone HCl (Oxycontin Extended Release Tab) 40 mg PO Q12 [facility] - Labs Labs: 06/10/17 06:06 06/10/17 06:06 - Head Exam Head Exam: ATRAUMATIC - Eye Exam Eye Exam: Normal appearance - ENT Exam ENT Exam: Mucous Membranes Dry - Respiratory Exam Respiratory Exam: NORMAL BREATHING PATTERN - Cardiovascular Exam Cardiovascular Exam: +S1, +S2 - GI/Abdominal Exam GI & Abdominal Exam: Normal Bowel Sounds - Extremities Exam Extremities Exam: Pedal Edema Assessment and Plan (1) Pancreatic cancer Assessment & Plan: stage IV liver metastasis outpatient chemotherapy Status: Acute (2) Anemia Assessment & Plan: chronic disease Status: Acute (3) Thrombocytopenia Assessment & Plan: mild, cont. to monitor Status: Acute (4) Leukocytosis Assessment & Plan: mild, improved Status: Acute
[2017-06-12 01:27] VITALS: O2SAT 95
--- NOTE | 2017-06-12 08:21 | CP.PCM.PN ---
Subjective - Date & Time of Evaluation Date of Evaluation: 06/11/17 Time of Evaluation: 20:40 - Subjective Subjective: pT SEEN AND EVALAUTED, PAIN IS IMPROVED Objective - Vital Signs/Intake and Output Vital Signs (last 24 hours): Temp Pulse Resp BP Pulse Ox 98.0 F 86 20 114/60 95 06/11/17 23:15 06/11/17 23:15 06/11/17 23:15 06/11/17 23:15 06/11/17 23:15 Intake and Output: 06/12/17 06/12/17 06:59 18:59 Intake Total 120 Balance 120 - Medications Medications: Current Medications Enoxaparin Sodium (Lovenox) 150 mg SC DAILY [facility] Famotidine (Pepcid) 20 mg PO BID [facility] Last Admin: 06/11/17 18:19 Dose: 20 mg Ondansetron HCl (Zofran Inj) 4 mg IVP Q4 PRN PRN Reason: Nausea/Vomiting Oxycodone HCl (Oxycontin Extended Release Tab) 40 mg PO Q12 [facility] Last Admin: 06/11/17 21:10 Dose: 40 mg - Labs Labs: 06/10/17 06:06 06/10/17 06:06 - Constitutional Appears: No Acute Distress - Head Exam Head Exam: ATRAUMATIC, NORMAL INSPECTION, NORMOCEPHALIC - Eye Exam Eye Exam: EOMI, Normal appearance, PERRL Pupil Exam: NORMAL ACCOMODATION, PERRL - Respiratory Exam Respiratory Exam: Clear to Ausculation Bilateral, NORMAL BREATHING PATTERN - Cardiovascular Exam Cardiovascular Exam: REGULAR RHYTHM, +S1, +S2. absent: Murmur - GI/Abdominal Exam GI & Abdominal Exam: Soft, Tenderness, Normal Bowel Sounds, Organomegaly Assessment and Plan (1) Leukocytosis Status: Acute (2) Pancreatic cancer Assessment & Plan: (1) Pancreatic cancer Assessment & Plan: stage IV liver metastasis outpatient chemotherapy Status: Acute (2) Anemia Assessment & Plan: chronic disease Status: Acute (3) Thrombocytopenia Assessment & Plan: mild, cont. to monitor Status: Acute (4) Leukocytosis Assessment & Plan: mild, improved Status: Acute Status: Acute (3) Thrombocytopenia Status: Acute (4) Abdominal pain Status: Acute
[2017-06-12] MEDS: oxyCODONE 20 mg ER Tab (oxyCONTIN) PO SCH (09:41)
[2017-06-12] MEDS ORDERED: Enoxaparin 150 mg Syringe SC SCH (10:00)
--- NOTE | 2017-06-12 11:21 | CP.PCM.PN ---
Subjective - Date & Time of Evaluation Date of Evaluation: 06/12/17 Time of Evaluation: 10:00 - Subjective Subjective: PAIN IN ABDOMEN, NO SOB, ON COUMADIN, Objective - Vital Signs/Intake and Output Vital Signs (last 24 hours): Temp Pulse Resp BP Pulse Ox 98.0 F 84 20 100/65 95 06/12/17 07:30 06/12/17 07:30 06/12/17 07:30 06/12/17 07:30 06/12/17 07:30 Intake and Output: 06/12/17 06/12/17 06:59 18:59 Intake Total 120 Balance 120 - Medications Medications: Current Medications Enoxaparin Sodium (Lovenox) 150 mg SC DAILY [facility] Last Admin: 06/12/17 09:39 Dose: 150 mg Famotidine (Pepcid) 20 mg PO BID [facility] Last Admin: 06/12/17 09:39 Dose: 20 mg Ondansetron HCl (Zofran Inj) 4 mg IVP Q4 PRN PRN Reason: Nausea/Vomiting Oxycodone HCl (Oxycontin Extended Release Tab) 40 mg PO Q12 [facility] Last Admin: 06/12/17 09:41 Dose: 40 mg - Labs Labs: 06/10/17 06:06 06/10/17 06:06 - Constitutional Appears: Non-toxic, No Acute Distress - Head Exam Head Exam: ATRAUMATIC, NORMAL INSPECTION, NORMOCEPHALIC - Eye Exam Eye Exam: EOMI, Normal appearance Pupil Exam: NORMAL ACCOMODATION - ENT Exam ENT Exam: Mucous Membranes Moist, Normal Exam, Normal Oropharynx, TM's Normal Bilaterally - Respiratory Exam Respiratory Exam: Clear to Ausculation Bilateral - Cardiovascular Exam Cardiovascular Exam: REGULAR RHYTHM, +S1, +S2 - GI/Abdominal Exam GI & Abdominal Exam: Normal Bowel Sounds (MASS IN ABDOMEN) - Extremities Exam Extremities Exam: Full ROM, Normal Capillary Refill Assessment and Plan (1) Leukocytosis Status: Resolved (2) Pancreatic cancer Status: Acute (3) Thrombocytopenia Status: Suspected (4) Abdominal pain Status: Acute
--- NOTE | 2017-06-12 12:00 | CP.PCM.PN ---
Subjective - Date & Time of Evaluation Date of Evaluation: 06/12/17 Time of Evaluation: 10:00 - Subjective Subjective: PGY3 on heme/onc Dr. Watkins service: Pt seen and examined at bedside this morning. Pt feeling ok with poor appetite. No other complaints at the moment. Objective - Vital Signs/Intake and Output Vital Signs (last 24 hours): Temp Pulse Resp BP Pulse Ox 98.0 F 84 20 100/65 95 06/12/17 07:30 06/12/17 07:30 06/12/17 07:30 06/12/17 07:30 06/12/17 07:30 Intake and Output: 06/12/17 06/12/17 06:59 18:59 Intake Total 120 Balance 120 - Medications Medications: Current Medications Enoxaparin Sodium (Lovenox) 150 mg SC DAILY [facility] Last Admin: 06/12/17 09:39 Dose: 150 mg Famotidine (Pepcid) 20 mg PO BID [facility] Last Admin: 06/12/17 09:39 Dose: 20 mg Ondansetron HCl (Zofran Inj) 4 mg IVP Q4 PRN PRN Reason: Nausea/Vomiting Oxycodone HCl (Oxycontin Extended Release Tab) 40 mg PO Q12 [facility] Last Admin: 06/12/17 09:41 Dose: 40 mg - Labs Labs: 06/10/17 06:06 06/10/17 06:06 - Constitutional Appears: Non-toxic, No Acute Distress - Head Exam Head Exam: NORMOCEPHALIC - Eye Exam Eye Exam: Normal appearance Pupil Exam: NORMAL ACCOMODATION - Respiratory Exam Respiratory Exam: Clear to Ausculation Bilateral, NORMAL BREATHING PATTERN - Cardiovascular Exam Cardiovascular Exam: REGULAR RHYTHM - GI/Abdominal Exam GI & Abdominal Exam: Normal Bowel Sounds Assessment and Plan - Assessment and Plan (Free Text) Assessment: (1) Pancreatic cancer Assessment & Plan: stage IV liver metastasis outpatient chemotherapy DC planning per primary Status: Acute (2) Anemia Assessment & Plan: chronic disease Status: Acute (3) Thrombocytopenia Assessment & Plan: mild, cont. to monitor Status: Acute (4) Leukocytosis Assessment & Plan: mild, improved Status: Acute
[2017-06-12 14:21] LABS: INR 1.6
[2017-06-12 16:19] VITALS: BP 99/60; PULSE 85; TEMP 97.6
[2017-06-12] MEDS ORDERED: HYDROmorphone 1 mg/ml ISec IVP PRN (17:19)
[2017-06-12] MEDS ORDERED: oxyCODONE 10 mg ER Tab (oxyCONTIN) PO SCH (19:28)
[2017-06-12] MEDS ORDERED: Alum-Mag Hydrox-Simethicone Susp (30 mL) PO STA (19:28)
--- NOTE | 2017-06-13 15:26 | VASCLAB ---
PROCEDURE: Lower Extremity Venous Duplex Exam. HISTORY: rule out DVT PRIORS: None. TECHNIQUE: Bilateral common femoral, femoral, popliteal and posterior tibial, peroneal and great saphenous veins were evaluated. Flow was assessed with color Doppler, compressibility, assessment of phasic flow and augmentation response. Report prepared by MARYANN Weems, RVT FINDINGS: RIGHT: 1. Common Femoral Vein: 1.1. Compressibility - Fully compressible: Thrombus - None : Flow - Phasic: Augmentation -Normal: Reflux - None. 2. Femoral Vein: 2.1. Compressibility - Partial: Thrombus - Acute : Flow - Reduced : Augmentation -Reduced: Reflux - None. 3. Popliteal Vein: 3.1. Compressibility - Fully compressible: Thrombus - None : Flow - Phasic: Augmentation -Normal: Reflux - None. 4. Posterior Tibial Vein: 4.1. Compressibility - Fully compressible: Thrombus - None: Flow - Phasic: Augmentation -Normal: Reflux - None. 5. Peroneal Vein: 5.1. Compressibility - Fully compressible: Thrombus - None: Flow - Phasic: Augmentation -Normal: Reflux - None. 6. Great Saphenous Vein: 6.1. Compressibility - Incompressible: Thrombus - Chronic: Flow - Absent : Augmentation - None: Reflux - None. LEFT: 1. Common Femoral Vein: 1.1. Compressibility - Fully compressible: Thrombus - None: Flow - Phasic: Augmentation -Normal: Reflux - None. 2. Femoral Vein: 2.1. Compressibility - Fully compressible: Thrombus - None: Flow - Phasic: Augmentation -Normal: Reflux - None. 3. Popliteal Vein: 3.1. Compressibility - Fully compressible: Thrombus - None : Flow - Phasic: Augmentation -Normal: Reflux - None. 4. Posterior Tibial Vein: 4.1. Compressibility - Fully compressible: Thrombus - None: Flow - Phasic: Augmentation -Normal: Reflux - None. 5. Peroneal Vein: 5.1. Compressibility - Fully compressible: Thrombus - None: Flow - Phasic: Augmentation -Normal: Reflux - None. 6. Great Saphenous Vein: 6.1. Compressibility - Fully compressible: Thrombus - None: Flow - Phasic: Augmentation - Normal: Reflux - None. OTHER FINDINGS: LEMUEL Mccollum notified about the findings. IMPRESSION: Right: Acute thrombosis of the right proximal femoral vein with mild reduction of the venous return. 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 Left: No evidence of deep or superficial vein thrombosis of the left lower extremity. Normal valve function noted of the left side.
--- NOTE | 2017-06-20 08:21 | CP.PCM.DIS ---
Provider - Provider Date of Admission: 06/07/17 23:57 Attending physician: Conrad Haynes MD Time Spent in preparation of Discharge (in minutes): 30 Diagnosis - Discharge Diagnosis (1) Pancreatic cancer Status: Chronic Priority: Medium (2) Thrombocytopenia Status: Suspected (3) Abdominal pain Status: Acute Hospital Course - Lab Results Lab Results: Most Recent Lab Values WBC 11.5 K/uL (4.8-10.8) H 06/10/17 06:06 RBC 3.18 Mil/uL (3.80-5.20) L 06/10/17 06:06 Hgb 9.6 g/dL (11.0-16.0) L 06/10/17 06:06 Hct 28.8 % (34.0-47.0) L 06/10/17 06:06 MCV 90.7 fL (81.0-99.0) 06/10/17 06:06 MCH 30.3 pg (27.0-31.0) 06/10/17 06:06 MCHC 33.4 g/dL (33.0-37.0) 06/10/17 06:06 RDW 16.4 % (11.5-14.5) H 06/10/17 06:06 Plt Count 99 K/uL (130-400) L 06/10/17 06:06 MPV 8.9 fL (7.2-11.7) 06/10/17 06:06 Neut % (Auto) 83.0 % (50.0-75.0) H 06/07/17 20:05 Lymph % (Auto) 8.0 % (20.0-40.0) L 06/07/17 20:05 [place] % (Auto) 7.0 % (0.0-10.0) 06/07/17 20:05 Eos % (Auto) 1.3 % (0.0-4.0) 06/07/17 20:05 Baso % (Auto) 0.7 % (0.0-2.0) 06/07/17 20:05 Neut # 13.3 K/uL (1.8-7.0) H 06/07/17 20:05 Lymph # 1.3 K/uL (1.0-4.3) 06/07/17 20:05 [place] # 1.1 K/uL (0.0-0.8) H 06/07/17 20:05 Eos # 0.2 K/uL (0.0-0.7) 06/07/17 20:05 Baso # 0.1 K/uL (0.0-0.2) 06/07/17 20:05 Neutrophils % (Manual) 85 % (50-75) H 06/07/17 20:05 Lymphocytes % (Manual) 7 % (20-40) L 06/07/17 20:05 Monocytes % (Manual) 6 % (0-10) 06/07/17 20:05 Eosinophils % (Manual) 2 % (0-4) 06/07/17 20:05 Platelet Estimate Slightly decreased (NORMAL) L 06/07/17 20:05 Anisocytosis (manual) Slight 06/07/17 20:05 PT 18.9 SECONDS (9.7-12.2) H 06/12/17 13:58 INR 1.6 06/12/17 13:58 D-Dimer, Quantitative > 5250 ng/mlDDU (0-243) H 06/07/17 20:05 Sodium 130 mmol/L (132-148) L 06/10/17 06:06 Potassium 4.4 mmol/L (3.6-5.2) 06/10/17 06:06 Chloride 94 mmol/L (98-107) L 06/10/17 06:06 Carbon Dioxide 26 mmol/L (22-30) 06/10/17 06:06 Anion Gap 14 (10-20) 06/10/17 06:06 BUN 28 mg/dL (7-17) H 06/10/17 06:06 Creatinine 0.9 MG/DL (0.7-1.2) 06/10/17 06:06 Est GFR ( Amer) > 60 06/10/17 06:06 Est GFR (Non-Af Amer) > 60 06/10/17 06:06 Random Glucose 88 mg/dL (65-105) 06/10/17 06:06 Calcium 7.6 mg/dl (8.6-10.4) L 06/10/17 06:06 Total Bilirubin 1.7 mg/dL (0.2-1.3) H 06/10/17 06:06 AST 98 U/L (14-36) H 06/10/17 06:06 ALT 51 U/L (9-52) 06/10/17 06:06 Alkaline Phosphatase 678 U/L (38-126) H 06/10/17 06:06 Troponin I 0.1120 ng/mL (0.00-0.120) 06/07/17 20:05 Total Protein 4.6 g/dL (6.3-8.3) L 06/10/17 06:06 Albumin 2.2 g/dL (3.5-5.0) L 06/10/17 06:06 Globulin 2.4 gm/dL (2.2-3.9) 06/10/17 06:06 Albumin/Globulin Ratio 0.9 (1.0-2.1) L 06/10/17 06:06 Lipase 252 U/L (23-300) 06/07/17 23:16 - Hospital Course Hospital Course: 56 y/o wf recently diagnosed ca pancrease was admitted with abd pain nausea, vomiting, weakness Discharge Exam - Head Exam Head Exam: ATRAUMATIC, NORMAL INSPECTION, NORMOCEPHALIC - Eye Exam Eye Exam: Normal appearance, PERRL Pupil Exam: NORMAL ACCOMODATION - ENT Exam ENT Exam: Mucous Membranes Moist, Normal Exam, Normal Oropharynx, TM's Normal Bilaterally - Neck Exam Neck exam: Normal Inspection - Respiratory Exam Respiratory Exam: NORMAL BREATHING PATTERN - Cardiovascular Exam Cardiovascular Exam: REGULAR RHYTHM, +S1, +S2 - GI/Abdominal Exam GI & Abdominal Exam: Distended, Firm, Mass, Normal Bowel Sounds - Rectal Exam Rectal Exam: NORMAL INSPECTION - Extremities Exam Extremities exam: full ROM, normal capillary refill, pedal pulses present Discharge Plan - Follow Up Plan Condition: STABLE Disposition: AGAINST MEDICAL ADVICE
--- NOTE | 2017-06-28 07:39 | CP.PCM.HP ---
History of Present Illness - History of Present Illness History of Present Illness: 56 y/o with stage 4 ca pancearse, smoker and htn, she is admitted with abdominal pain, nausea vomiting, she was cheduled for chemo today, no fever, no dysuria Present on Admission - Present on Admission Any Indicators Present on Admission: No History of DVT/PE: No History of Uncontrolled Diabetes: No Urinary Catheter: No Decubitus Ulcer Present: No Review of Systems - Constitutional Constitutional: Anorexia, Chills - Gastrointestinal Gastrointestinal: Abdominal Pain, Cramping, Heartburn, Nausea - Musculoskeletal Musculoskeletal: Arthralgias Past Patient History - Past Medical History & Family History Past Medical History?: Yes - Past Social History Smoking Status: Former Smoker - CARDIAC Hx Cardiac Disorders: Yes Hx Hypercholesterolemia: Yes Hx Hypertension: Yes - PULMONARY Hx Respiratory Disorders: Yes Hx Asthma: Yes - NEUROLOGICAL Hx Neurological Disorder: No - HEENT Hx HEENT Problems: Yes Other/Comment: GLASSES FOR READING - RENAL Hx Chronic Kidney Disease: No - ENDOCRINE/METABOLIC Hx Endocrine Disorders: No - HEMATOLOGICAL/ONCOLOGICAL Hx Blood Disorders: No - INTEGUMENTARY Hx Dermatological Problems: No - MUSCULOSKELETAL/RHEUMATOLOGICAL Hx Musculoskeletal Disorders: No Hx Falls: No - GASTROINTESTINAL Hx Gastrointestinal Disorders: No - GENITOURINARY/GYNECOLOGICAL Hx Genitourinary Disorders: No - PSYCHIATRIC Hx Psychophysiologic Disorder: No Hx Substance Use: No - SURGICAL HISTORY Hx Surgeries: Yes Hx Vascular Access Device: Yes (portacath- R subclavian) Other/Comment: CYST LEFT BREAST YEARS. IVC filter - R leg - ANESTHESIA Hx Anesthesia: Yes Hx Anesthesia Reactions: No Hx Malignant Hyperthermia: No Meds Allergies/Adverse Reactions: Allergies Allergy/AdvReac Type Severity Reaction Status Date / Time No Known Allergies Allergy Verified 06/20/17 16:52 Physical Exam - Constitutional Appears: In Acute Distress - Head Exam Head Exam: ATRAUMATIC, NORMAL INSPECTION, NORMOCEPHALIC - Eye Exam Eye Exam: EOMI, Normal appearance, PERRL Pupil Exam: NORMAL ACCOMODATION - ENT Exam ENT Exam: Mucous Membranes Moist, Normal Exam, Normal Oropharynx, TM's Normal Bilaterally - Neck Exam Neck exam: Positive for: Normal Inspection - Respiratory Exam Respiratory Exam: Clear to Auscultation Bilateral, NORMAL BREATHING PATTERN - Cardiovascular Exam Cardiovascular Exam: Tachycardia, REGULAR RHYTHM, +S1, +S2 - GI/Abdominal Exam GI & Abdominal Exam: Distended, Firm - Rectal Exam Rectal Exam: NORMAL INSPECTION - Exam Speculum exam: NORMAL SPECULUM EXAM Bimanual exam: NORMAL BIMANUAL EXAM - Extremities Exam Extremities exam: Positive for: normal inspection - Neurological Exam Neurological exam: Alert, CN II-XII Intact, Normal Gait, Oriented x3, Reflexes Normal - Psychiatric Exam Psychiatric exam: Anxious, Normal Mood - Skin Skin Exam: Intact Results - Vital Signs Recent Vital Signs: Last Vital Signs Temp 97.6 F 06/12/17 16:18 Pulse 85 06/12/17 16:18 Resp 20 06/12/17 16:18 BP 99/60 L 06/12/17 16:18 Pulse Ox 95 06/12/17 16:18 - Labs Result Diagrams: 06/10/17 06:06 06/10/17 06:06 Assessment & Plan (1) Pancreatic cancer Status: Chronic Priority: Medium (2) Thrombocytopenia Status: Suspected (3) Abdominal pain Status: Acute
== END 2017-06-12 22:26 | disposition left against medical advice (07) | DRG 203 ==
LOC: C.ER 18:50 → C.9E 23:57 → C.6T 06-08 00:36
PROVIDERS: ADMIT Internal Medicine; ATTEND Internal Medicine
DX: C78.7 Secondary malignant neoplasm of liver and intrahepatic bile duct (principal); C25.9 Malignant neoplasm of pancreas, unspecified; C78.00 Secondary malignant neoplasm of unspecified lung; D69.6 Thrombocytopenia, unspecified; D64.9 Anemia, unspecified; I10 Essential (primary) hypertension; C78.89 Secondary malignant neoplasm of other digestive organs; D72.829 Elevated white blood cell count, unspecified; E78.00 Pure hypercholesterolemia, unspecified; J45.909 Unspecified asthma, uncomplicated; Z87.891 Personal history of nicotine dependence; Z86.711 Personal history of pulmonary embolism; Z86.718 Personal history of other venous thrombosis and embolism

== ENCOUNTER 2017-06-20 16:35 | Inpatient (IN) | payer OTHER ==
[2017-06-20] MEDS ORDERED: Sodium Chloride 0.9% 2,000 ML IV ONE (16:56)
[2017-06-20] MEDS ORDERED: Pantoprazole 80 MG in Sodium Chloride 0.9% 100 ML IVP SCH ×2 (17:00→17:30)
--- NOTE | 2017-06-20 17:04 | C.PDOC ---
History Of Present Illness 56 y/o female with Hx of Metastatic pancreatic cancer presents to ED with complaints of coffee ground emesis. Patient reports that she last had chemotherapy on Saturday. She reports that she has been nauseous since that time and has not eaten much food. She reports that just prior to arrival she developed 1 episode of coffee ground emesis. On EMS arrival patient was hypertensive and tachycardic with complaints of persistent nausea and given IVF and zofran on route. Patient reports baseline abdominal pain secondary to cancer. Patient denies sob, chest pain, diarrhea, constipation, dysuria, or blood in stool. She reports that she is compliant to anticoagulants for known PE. PMD:. Time Seen by Provider: 06/20/17 16:50 Chief Complaint (Nursing): GI Problem History Per: Patient History/Exam Limitations: no limitations Onset/Duration Of Symptoms: Hrs Current Symptoms Are (Timing): Still Present Past Medical History Reviewed: Historical Data, Nursing Documentation, Vital Signs Vital Signs: Last Vital Signs Temp 98.5 F 06/20/17 16:40 Pulse 104 H 06/20/17 18:41 Resp 24 06/20/17 18:41 BP 131/56 L 06/20/17 18:41 Pulse Ox 92 L 06/20/17 18:41 - Medical History PMH: Asthma, Deep Vein Thrombosis (1 week ago), HTN, Hypercholesterolemia - [facility] Procedures EXCISION OF LEFT LOBE LIVER, PERCUTANEOUS APPROACH, DIAGN (05/14/17) EXCISION OF PANCREAS, PERC ENDO APPROACH, DIAGN (05/14/17) INSERTION OF INFUSION DEV INTO SUP VENA CAVA, PERC APPROACH (05/14/17) INSERTION OF INTRALUM DEV INTO INF VENA CAVA, PERC APPROACH (05/14/17) INSERTION OF VAD INTO CHEST SUBCU/FASCIA, OPEN APPROACH (05/14/17) INSPECTION OF LOWER INTESTINAL TRACT, ENDO (05/14/17) ULTRASONOGRAPHY OF SUPERIOR VENA CAVA, GUIDANCE (05/14/17) Family History: States: Unknown Family Hx - Social History Hx Alcohol Use: No Hx Substance Use: No - Immunization History Hx Tetanus Toxoid Vaccination: Yes Hx Influenza Vaccination: No Hx Pneumococcal Vaccination: No Review Of Systems Except As Marked, All Systems Reviewed And Found Negative. Constitutional: Negative for: Fever, Chills Cardiovascular: Negative for: Chest Pain, Palpitations, Orthopnea, Edema, Light Headedness Respiratory: Negative for: Shortness of Breath Gastrointestinal: Positive for: Nausea, Vomiting, Abdominal Pain (chronic due to cancer), Hematemesis. Negative for: Diarrhea, Constipation, Melena, Hematochezia, Rectal Pain Genitourinary: Negative for: Dysuria, Frequency, Hematuria, Vaginal Discharge, Vaginal Bleeding Musculoskeletal: Positive for: Other Skin: Negative for: Rash Neurological: Negative for: Weakness, Numbness Physical Exam - Physical Exam Appears: Non-toxic, No Acute Distress, Chronically Ill Skin: Warm, Dry, Jaundice Head: Atraumatic, Normacephalic Eye(s): bilateral: Normal Inspection, PERRL, EOMI Oral Mucosa: Dry Chest: Symmetrical Cardiovascular: Other (Tachycardic) Respiratory: Normal Breath Sounds, No Accessory Muscle Use, No Rales, No Rhonchi , No Wheezing Gastrointestinal/Abdominal: Soft, No Tenderness, Mass, Distention, No Guarding Back: Normal Inspection, No CVA Tenderness Extremity: No Pedal Edema, No Calf Tenderness, Capillary Refill (<2 seconds), No Deformity, No Swelling, Other (distal pulses intact) Extremity: Bilateral: Normal ROM Pulses: Left Dorsalis Pedis: Normal, Right Dorsalis Pedis: Normal Neurological/Psych: Oriented x3, Normal Speech, Normal Motor, Normal Sensation ED Course And Treatment - Laboratory Results Result Diagrams: 06/20/17 17:10 06/20/17 17:10 O2 Sat by Pulse Oximetry: 95 (RA) Pulse Ox Interpretation: Normal Medical Decision Making Medical Decision Making: Patient is hypotensive and tachycardic on arrival with coffee ground emesis. IVF and anti-emetic infusing with pain medication for cancer pain. Protonix bolus and drip ordered. EKG shows sinus tachycardia at 126bpm with t wave inversions, unchanged from prior (05/17/17 stress test, "patient did well." 5:52PM Cxray shows R sided meidport and pulmonary nodules. Labs shows baseline anemia , but no significant decrease. Platelets WNL. On anticoagulants for PE. Patient hyponatriemic with worsening renal function (similar to prior admission ) with elevated liver functions, consistent with known metastasis to liver. Heart rate and BP improving after 2L IVF. No additional vomiting in ED. Spoke to PMD Dr. Haynes who reports that patient can be transferred to tele. 6:28PM BP normalized and tachycardia resolved. INR resulted at >10. Patient on coumadin for known PE. Dr. Haynes requesting Vitamin K and FFP and ICU eval. Spoke to Dr. Michel, ICU, to evaluate. He agrees to give vitamin k but asking to hold on FFP till his evaluation. He will evaluate the patient and upgrade as necessary. 7:00PM Will sign out to Dr. Taveras to follow-up ICU evaluation. Disposition - Disposition Disposition: HOSPITALIZED Disposition Time: 17:53 Condition: FAIR - Clinical Impression Clinical Impression: Gastrointestinal hemorrhage, Coffee ground emesis - Scribe Statement The provider has reviewed the documentation as recorded by the Scribe Tierra Butt All medical record entries made by the Jordanibe were at my direction and personally dictated by me. I have reviewed the chart and agree that the record accurately reflects my personal performance of the history, physical exam, medical decision making, and the department course for this patient. I have also personally directed, reviewed, and agree with the discharge instructions and disposition.
[2017-06-20] MEDS ORDERED: Morphine 4 MG/ML VIAL ONE ×2 (17:08→17:19)
[2017-06-20] MEDS ORDERED: Sodium Chloride 0.9% 1,000 ML ONE (17:08)
[2017-06-20 17:22] LABS: BASO # 0.1 K/uL (0.0-0.2); BASO % 0.6 % (0.0-2.0); EOS # 0.2 K/uL (0.0-0.7); HEMATOCRIT 28.8 % (34.0-47.0); LYMPH # 0.5 K/uL (1.0-4.3); LYMPH % 4.5 % (20.0-40.0); MEAN CELL VOLUME 90.2 fL (81.0-99.0); MEAN CORPUSCULAR HEMOGLOBIN 30.1 pg (27.0-31.0); MEAN CORPUSCULAR HGB CONC 33.4 g/dL (33.0-37.0); MEAN PLATELET VOLUME 9.6 fL (7.2-11.7); MONO # 0.1 K/uL (0.0-0.8); MONO % 0.7 % (0.0-10.0); PLATELET COUNT 163 K/uL (130-400); RED CELL DISTRIBUTION WIDTH 18.3 % (11.5-14.5); WHITE BLOOD COUNT 11.5 K/uL (4.8-10.8)
[2017-06-20 17:30] LABS: POTASSIUM 4.4 mmol/L (3.6-5.2)
[2017-06-20 17:32] LABS: BILIRUBIN,TOTAL 2.5 mg/dL (0.2-1.3)
[2017-06-20 17:33] LABS: ALB/GLOB RATIO 0.8 (1.0-2.1); CALCIUM 7.2 mg/dl (8.6-10.4); PHOSPHOROUS 3.6 mg/dL (2.5-4.5); TOTAL PROTEIN 4.7 g/dL (6.3-8.3)
[2017-06-20] MEDS: Pantoprazole 80 MG in Sodium Chloride 0.9% 100 ML IVPB SCH (17:33)
[2017-06-20 17:34] LABS: MAGNESIUM 2.1 mg/dL (1.6-2.3)
--- NOTE | 2017-06-20 17:52 | RAD ---
HISTORY: vomiting blood COMPARISON: Chest x-ray performed 06/07/17, CTA chest performed 06/07/17 TECHNIQUE: Chest, one view. FINDINGS: Right-sided MediPort extends to the SVC. Examination limited by habitus. LUNGS: No focal consolidation. Subtle scattered nodular densities identified measuring up to 5 mm in the left upper lobe. Please note that chest x-ray has limited sensitivity for the detection of pulmonary masses. PLEURA: No significant pleural effusion identified. No definite pneumothorax . CARDIOVASCULAR: Heart size appears within normal limits. OSSEOUS STRUCTURES: No acute osseous abnormality is detected. VISUALIZED UPPER ABDOMEN: Unremarkable. OTHER FINDINGS: None. IMPRESSION: Right-sided MediPort. Subtle scattered pulmonary nodular densities identified measuring up to 5 mm in the left upper lobe.
[2017-06-20 18:20] LABS: INR > 10.0
[2017-06-20 18:22] LABS: PARTIAL THROMBOPLASTIN TIME 135 SECONDS (21-34)
[2017-06-20] MEDS ORDERED: Phytonadione 10 mg/ml Inj (Adult) IV STA (18:24)
[2017-06-20] MEDS ORDERED: Phytonadione 10 mg/ml Inj (Adult) ONE (18:34)
[2017-06-20 18:36] LABS: MYELOCYTE 1 % (0-0); NEUTROPHIL 88 % (50-75); TOTAL CELLS COUNTED 100
[2017-06-20] MEDS ORDERED: Sodium Chloride 0.9% 1,000 ML IV SCH (18:45)
[2017-06-20] MEDS: Sodium Chloride 0.9% 1,000 ML IV SCH (20:10)
--- NOTE | 2017-06-20 20:16 | CP.PCM.CON ---
History of Present Illness - History of Present Illness History of Present Illness: 56 year old female with a history of DVT/PE s/p IVC filter on anticoagulation diagnosed with pancreatic cancer with liver metastasis diagnosed in 05/2017 on chemotherapy, admitted hematemesis. The patient received her first chemotherapy this past Saturday. She notes to increasing nausea and had an episode of hematemsis which prompted her to come to the ER. In the ER she was found to have an INR > 10 and given IV vit k. She reports to feeling better with resolution of her hematemsis. Past medical history: DVT/PE, pancreatic cancer Past surgical history: Portacath Family history: Denies hematologic and oncology problems Social history: FOrmer tobacco abuse, denies alcohol, and illicit drug use. Allergies: NKA Review of systems: All remaining review of systems including HEENT, cardiovascular, respiratory, gastrointestinal, genitourinary, musculoskeleletal , dermatologic, neurologic, and psychiatric are negative unless mentioned in the HPI. Past Patient History - Past Medical History & Family History Past Medical History?: Yes - Past Social History Smoking Status: Former Smoker - CARDIAC Hx Hypercholesterolemia: Yes Hx Hypertension: Yes - PULMONARY Hx Asthma: Yes - NEUROLOGICAL Hx Neurological Disorder: No - HEENT Hx HEENT Problems: Yes Other/Comment: GLASSES FOR READING - RENAL Hx Chronic Kidney Disease: No - ENDOCRINE/METABOLIC Hx Endocrine Disorders: No - HEMATOLOGICAL/ONCOLOGICAL Hx Blood Disorders: Yes Hx Cancer: Yes (LIVER CA AND LUNG CA) Other/Comment: DVT - INTEGUMENTARY Hx Dermatological Problems: No - MUSCULOSKELETAL/RHEUMATOLOGICAL Hx Musculoskeletal Disorders: No Hx Falls: No - GASTROINTESTINAL Hx Gastrointestinal Disorders: Yes Hx Gastroesophageal Reflux: Yes - GENITOURINARY/GYNECOLOGICAL Hx Genitourinary Disorders: No - PSYCHIATRIC Hx Substance Use: No - SURGICAL HISTORY Hx Surgeries: Yes Hx Vascular Access Device: Yes (portacath- R subclavian) Other/Comment: CYST LEFT BREAST YEARS. IVC filter - R leg - ANESTHESIA Hx Anesthesia: Yes Hx Anesthesia Reactions: No Hx Malignant Hyperthermia: No Meds Allergies/Adverse Reactions: Allergies Allergy/AdvReac Type Severity Reaction Status Date / Time No Known Allergies Allergy Verified 06/20/17 16:52 - Medications Medications: Current Medications Fentanyl (Duragesic) 1 patch TD Q72H GINGER Pantoprazole Sodium 80 mg/ (Sodium Chloride) 100 mls @ 10 mls/hr IVPB .Q10H GINGER PRN Reason: 8 MG/HR Last Admin: 06/20/17 17:33 Dose: 10 mls/hr Sodium Chloride (Sodium Chloride 0.9%) 1,000 mls @ 100 mls/hr IV .Q10H GINGER Morphine Sulfate (Morphine) 2 mg SC Q4 PRN PRN Reason: Pain, moderate (4-7) Ondansetron HCl (Zofran Inj) 4 mg IVP Q4 PRN PRN Reason: Nausea/Vomiting Pantoprazole Sodium (Protonix Inj) 40 mg IVP DAILY [facility] Vitamin A (Vitamin A & D Oint Ud Foilpak) 0.5 ea TOP Q4 PRN PRN Reason: dry lips Physical Exam - Head Exam Head Exam: ATRAUMATIC - Eye Exam Eye Exam: Normal appearance - ENT Exam ENT Exam: Mucous Membranes Dry - Respiratory Exam Respiratory Exam: NORMAL BREATHING PATTERN - Cardiovascular Exam Cardiovascular Exam: +S1, +S2 - GI/Abdominal Exam GI & Abdominal Exam: Normal Bowel Sounds - Extremities Exam Extremities exam: Positive for: pedal edema - Neurological Exam Neurological exam: Oriented x3 - Psychiatric Exam Psychiatric exam: Normal Affect, Normal Mood - Skin Skin Exam: Warm Results - Vital Signs Recent Vital Signs: Last Vital Signs Temp 98.2 F 06/20/17 18:41 Pulse 104 H 06/20/17 18:41 Resp 24 06/20/17 18:41 BP 131/56 L 06/20/17 18:41 Pulse Ox 95 06/20/17 18:53 - Labs Result Diagrams: 06/20/17 17:10 06/20/17 17:10 Labs: Laboratory Results - last 24 hr 06/20/17 17:53 PT > 320.0 H* INR > 10.0 APTT 135 H* Assessment & Plan (1) Coagulopathy Assessment and Plan: supratherapeutic INR secondary to anticoagulation s/p vit k repeat coags Status: Acute Priority: High (2) Anemia Assessment and Plan: hematemesis resolved chronic disease and chemotherapy Status: Acute (3) Pulmonary emboli Assessment and Plan: with DVT has IVC filter anticoagulation on hold given hematemesis Status: Chronic Priority: Low (4) Pancreatic cancer Assessment and Plan: liver metastasis on chemotherapy Thank you for this interesting consult. Status: Chronic Priority: Medium
[2017-06-20] MEDS: Vitamins A & D Oint UD Foilpak TOP PRN (21:08)
[2017-06-21] MEDS ORDERED: Morphine 4 MG/ML VIAL SC PRN (02:09)
--- NOTE | 2017-06-21 02:12 | CP.PCM.HP ---
History of Present Illness - History of Present Illness History of Present Illness: 56 Y/O WITH PANCREATIC CA, CAME WITH ABDOMINAL PAIN, WEAKNESS, COAGULOPATHY, NO SOB, NO CHEST PAIN Present on Admission - Present on Admission Any Indicators Present on Admission: No History of DVT/PE: No History of Uncontrolled Diabetes: No Urinary Catheter: No Decubitus Ulcer Present: No Review of Systems - Constitutional Constitutional: Chills - Cardiovascular Cardiovascular: Dyspnea - Gastrointestinal Gastrointestinal: Abdominal Pain, Bloating, Dyspepsia, Heartburn, Nausea - Genitourinary Genitourinary: Change in Urinary Stream - Integumentary Integumentary: Dry Skin - Neurological Neurological: Weakness - Psychiatric Psychiatric: Anxiety Past Patient History - Past Medical History & Family History Past Medical History?: Yes - Past Social History Smoking Status: Former Smoker - CARDIAC Hx Hypercholesterolemia: Yes Hx Hypertension: Yes - PULMONARY Hx Asthma: Yes - NEUROLOGICAL Hx Neurological Disorder: No - HEENT Hx HEENT Problems: Yes Other/Comment: GLASSES FOR READING - RENAL Hx Chronic Kidney Disease: No - ENDOCRINE/METABOLIC Hx Endocrine Disorders: No - HEMATOLOGICAL/ONCOLOGICAL Hx Blood Disorders: Yes Hx Blood Transfusions: No Hx Cancer: Yes (LIVER CA AND LUNG CA) Other/Comment: DVT - INTEGUMENTARY Hx Dermatological Problems: No - MUSCULOSKELETAL/RHEUMATOLOGICAL Hx Falls: No - GASTROINTESTINAL Hx Gastrointestinal Disorders: Yes Hx Gastroesophageal Reflux: Yes - GENITOURINARY/GYNECOLOGICAL Hx Genitourinary Disorders: No - PSYCHIATRIC Hx Substance Use: No - SURGICAL HISTORY Hx Surgeries: Yes Hx Vascular Access Device: Yes (portacath- R subclavian) Other/Comment: CYST LEFT BREAST YEARS. IVC filter - R leg - ANESTHESIA Hx Anesthesia: Yes Hx Anesthesia Reactions: No Hx Malignant Hyperthermia: No Has any member of the family had a problem w/ anesthesia?: No Meds Allergies/Adverse Reactions: Allergies Allergy/AdvReac Type Severity Reaction Status Date / Time No Known Allergies Allergy Verified 06/20/17 16:52 Physical Exam - Constitutional Appears: Non-toxic, In Acute Distress, Chronically Ill - Head Exam Head Exam: ATRAUMATIC, NORMAL INSPECTION, NORMOCEPHALIC - Eye Exam Eye Exam: EOMI, Normal appearance, PERRL Pupil Exam: NORMAL ACCOMODATION - ENT Exam ENT Exam: Mucous Membranes Moist, Normal Exam, Normal Oropharynx, TM's Normal Bilaterally - Neck Exam Neck exam: Positive for: Normal Inspection - Respiratory Exam Respiratory Exam: Clear to Auscultation Bilateral, NORMAL BREATHING PATTERN - Cardiovascular Exam Cardiovascular Exam: REGULAR RHYTHM, +S1, +S2 - GI/Abdominal Exam GI & Abdominal Exam: Mass, Normal Bowel Sounds - Rectal Exam Rectal Exam: NORMAL INSPECTION - Extremities Exam Extremities exam: Positive for: normal capillary refill, normal inspection, pedal edema - Neurological Exam Neurological exam: Alert, CN II-XII Intact, Normal Gait, Oriented x3, Reflexes Normal - Psychiatric Exam Psychiatric exam: Anxious, Depressed, Flat Affect - Skin Skin Exam: Intact Results - Vital Signs Recent Vital Signs: Last Vital Signs Temp 98.5 F 06/20/17 23:10 Pulse 118 H 06/21/17 00:17 Resp 20 06/20/17 23:10 BP 100/63 06/20/17 23:10 Pulse Ox 96 06/20/17 23:10 - Labs Result Diagrams: 06/20/17 17:10 06/20/17 17:10 Labs: Laboratory Results - last 24 hr 06/20/17 17:53 PT > 320.0 H* INR > 10.0 APTT 135 H* Assessment & Plan (1) Coagulopathy Status: Acute Priority: High (2) History of deep vein thrombosis (DVT) of lower extremity Status: Chronic Priority: Medium (3) Pancreatic cancer Status: Chronic Priority: Medium (4) Pulmonary emboli Status: Chronic Priority: Low
[2017-06-21] MEDS ORDERED: Sodium Chloride 0.9% 1,000 ML IV ONE (03:45)
[2017-06-21] MEDS: Pantoprazole 80 MG in Sodium Chloride 0.9% 100 ML IVPB SCH ×2 (03:48→14:15)
[2017-06-21] MEDS: Sodium Chloride 0.9% 1,000 ML IV SCH ×4 (05:00→19:15)
[2017-06-21 07:39] LABS: CHLORIDE 98 mmol/L (98-107); HEMATOCRIT 25.5 % (34.0-47.0); MEAN CELL VOLUME 90.9 fL (81.0-99.0); MEAN CORPUSCULAR HEMOGLOBIN 30.1 pg (27.0-31.0); MEAN CORPUSCULAR HGB CONC 33.2 g/dL (33.0-37.0); MEAN PLATELET VOLUME 9.4 fL (7.2-11.7); POTASSIUM 4.4 mmol/L (3.6-5.2); RED CELL DISTRIBUTION WIDTH 18.4 % (11.5-14.5); SODIUM 128 mmol/L (132-148); WHITE BLOOD COUNT 6.2 K/uL (4.8-10.8)
[2017-06-21 07:41] LABS: GFR AFRICAN-AMERICAN > 60
[2017-06-21 07:42] LABS: BLOOD UREA NITROGEN 36 mg/dL (7-17); CALCIUM 6.8 mg/dl (8.6-10.4); CARBON DIOXIDE 22 mmol/L (22-30); GLUCOSE,RANDOM 93 mg/dL (65-105)
[2017-06-21 07:45] LABS: INR 1.7
[2017-06-21 08:15] LABS: RBC URINE 34 /hpf (0-3); URINE BACTERIA OCC (<OCC); URINE BILIRUBIN NEGATIVE (NEGATIVE); URINE BLOOD 2+ (NEGATIVE); URINE COLOR Amber (YELLOW); URINE GLUCOSE (UA) NORMAL (Normal); URINE KETONE NEGATIVE (NEGATIVE); URINE LEUKOCYTE ESTERASE 3+ Leu/uL (Negative); URINE PROTEIN NEGATIVE (NEGATIVE); WBC URINE 90 /hpf (0-5)
--- NOTE | 2017-06-21 14:41 | CP.PCM.PN ---
<Elkin Kline - Last Filed: 06/21/17 14:37> Subjective - Date & Time of Evaluation Date of Evaluation: 06/21/17 Time of Evaluation: 10:00 - Subjective Subjective: PGY3 on heme/onc Dr. Watkins service: Pt seen and examined at bedside this morning. Pt reports no more hematemesis or bleeding elsewhere. Feeling fatigued and wants to rest. No other complaints at this moment. Objective - Vital Signs/Intake and Output Vital Signs (last 24 hours): Temp Pulse Resp BP Pulse Ox 98.2 F 96 H 20 98/57 L 94 L 06/21/17 07:56 06/21/17 07:56 06/21/17 07:56 06/21/17 07:49 06/21/17 04:50 - Medications Medications: Current Medications Fentanyl (Duragesic) 1 patch TD Q72H [facility] Last Admin: 06/20/17 21:08 Dose: 1 patch Pantoprazole Sodium 80 mg/ (Sodium Chloride) 100 mls @ 10 mls/hr IVPB .Q10H [facility] PRN Reason: 8 MG/HR Last Admin: 06/21/17 14:15 Dose: 10 mls/hr Sodium Chloride (Sodium Chloride 0.9%) 1,000 mls @ 100 mls/hr IV .Q10H [facility] Last Admin: 06/21/17 07:30 Dose: 100 mls/hr Morphine Sulfate (Morphine) 4 mg SC Q4 PRN PRN Reason: Pain, moderate (4-7) Ondansetron HCl (Zofran Inj) 4 mg IVP Q4 PRN PRN Reason: Nausea/Vomiting Pantoprazole Sodium (Protonix Inj) 40 mg IVP DAILY [facility] Last Admin: 06/21/17 10:48 Dose: Not Given Vitamin A (Vitamin A & D Oint Ud Foilpak) 0.5 ea TOP Q4 PRN PRN Reason: dry lips Last Admin: 06/20/17 21:08 Dose: 0.5 ea - Labs Labs: 06/21/17 07:12 06/21/17 07:12 PT 20.0 SECONDS (9.7-12.2) H D 06/21/17 07:12 INR 1.7 D 06/21/17 07:12 APTT 39 SECONDS (21-34) H D 06/21/17 07:12 - Constitutional Appears: Non-toxic, No Acute Distress - Head Exam Head Exam: NORMOCEPHALIC - Eye Exam Eye Exam: Normal appearance Pupil Exam: NORMAL ACCOMODATION - Respiratory Exam Respiratory Exam: Clear to Ausculation Bilateral, NORMAL BREATHING PATTERN. absent: Wheezes - Cardiovascular Exam Cardiovascular Exam: REGULAR RHYTHM, +S1, +S2 - GI/Abdominal Exam GI & Abdominal Exam: Normal Bowel Sounds - Extremities Exam Extremities Exam: Pedal Edema - Neurological Exam Neurological Exam: Alert, Awake, Oriented x3 - Psychiatric Exam Psychiatric exam: Normal Mood Assessment and Plan - Assessment and Plan (Free Text) Assessment: (1) Coagulopathy Assessment and Plan: supratherapeutic INR secondary to anticoagulation on admission s/p vit k Subtherapeutic INR now, will restart anticoagulation at later date Status: Acute Priority: High (2) Anemia Assessment and Plan: hematemesis resolved chronic disease and chemotherapy Status: Acute (3) Pulmonary emboli Assessment and Plan: with DVT has IVC filter anticoagulation on hold given hematemesis and will restart at later date Status: Chronic Priority: Low (4) Pancreatic cancer Assessment and Plan: liver metastasis on chemotherapy Status: Chronic Priority: Medium <Emeka Watkins - Last Filed: 06/22/17 19:38> Objective - Vital Signs/Intake and Output Vital Signs (last 24 hours): Temp Pulse Resp BP Pulse Ox 98.1 F 95 H 20 96/61 L 96 06/22/17 15:20 06/22/17 15:20 06/22/17 15:20 06/22/17 15:20 06/22/17 15:20 Intake and Output: 06/22/17 06/23/17 18:59 06:59 Intake Total 1000 Balance 1000 - Medications Medications: Current Medications Acetaminophen (Tylenol 325mg Tab) 650 mg PO Q6 PRN PRN Reason: Pain, moderate (4-7) Last Admin: 06/22/17 17:47 Dose: 650 mg Enoxaparin Sodium (Lovenox) 40 mg SC Q24H [facility] Last Admin: 06/21/17 22:41 Dose: 40 mg Fentanyl (Duragesic) 1 patch TD Q72H [facility] Last Admin: 06/20/17 21:08 Dose: 1 patch Sodium Chloride (Sodium Chloride 0.9%) 1,000 mls @ 150 mls/hr IV .Q6H40M [facility] Last Admin: 06/22/17 18:08 Dose: 150 mls/hr Piperacillin Sod/Tazobactam Sod (Zosyn 3.375 Gm Iv Premix) 3.375 gm in 50 mls @ 100 mls/hr IVPB Q8H [facility] Last Admin: 06/22/17 17:56 Dose: 100 mls/hr Morphine Sulfate (Morphine) 4 mg SC Q4 PRN PRN Reason: Pain, moderate (4-7) Ondansetron HCl (Zofran Inj) 4 mg IVP Q4 PRN PRN Reason: Nausea/Vomiting Pantoprazole Sodium (Protonix Inj) 40 mg IVP DAILY [facility] Last Admin: 06/22/17 10:03 Dose: Not Given Vitamin A (Vitamin A & D Oint Ud Foilpak) 0.5 ea TOP Q4 PRN PRN Reason: dry lips Last Admin: 06/20/17 21:08 Dose: 0.5 ea - Labs Labs: 06/22/17 07:56 06/22/17 07:56 PT 24.9 SECONDS (9.7-12.2) H 06/22/17 07:56 INR 2.1 06/22/17 07:56 APTT 39 SECONDS (21-34) H D 06/21/17 07:12 Assessment and Plan (1) Coagulopathy Status: Acute (2) Anemia Status: Acute (3) Pulmonary emboli Status: Chronic (4) Pancreatic cancer Status: Chronic
[2017-06-21] MEDS ORDERED: Enoxaparin 40 mg Syringe SC SCH (22:00)
[2017-06-21] MEDS: Enoxaparin 40 mg Syringe SC SCH (22:41)
--- NOTE | 2017-06-22 01:48 | CP.PCM.PN ---
Subjective - Date & Time of Evaluation Date of Evaluation: 06/21/17 Time of Evaluation: 11:04 - Subjective Subjective: SHE IS WITH LOW BP, WEAK, ON IVF, NO SOB, NO CHEST PAIN, LOW BP Objective - Vital Signs/Intake and Output Vital Signs (last 24 hours): Temp Pulse Resp BP Pulse Ox 98.0 F 92 H 20 90/59 L 97 06/21/17 23:10 06/21/17 23:10 06/21/17 23:10 06/21/17 23:10 06/21/17 23:10 Intake and Output: 06/21/17 06/22/17 18:59 06:59 Intake Total 350 1400 Balance 350 1400 - Medications Medications: Current Medications Acetaminophen (Tylenol 325mg Tab) 650 mg PO Q6 PRN PRN Reason: Pain, moderate (4-7) Last Admin: 06/21/17 22:53 Dose: 650 mg Enoxaparin Sodium (Lovenox) 40 mg SC Q24H [facility] Last Admin: 06/21/17 22:41 Dose: 40 mg Fentanyl (Duragesic) 1 patch TD Q72H [facility] Last Admin: 06/20/17 21:08 Dose: 1 patch Sodium Chloride (Sodium Chloride 0.9%) 1,000 mls @ 150 mls/hr IV .Q6H40M [facility] Last Admin: 06/21/17 19:15 Dose: 150 mls/hr Morphine Sulfate (Morphine) 4 mg SC Q4 PRN PRN Reason: Pain, moderate (4-7) Ondansetron HCl (Zofran Inj) 4 mg IVP Q4 PRN PRN Reason: Nausea/Vomiting Pantoprazole Sodium (Protonix Inj) 40 mg IVP DAILY [facility] Last Admin: 06/21/17 10:48 Dose: Not Given Vitamin A (Vitamin A & D Oint Ud Foilpak) 0.5 ea TOP Q4 PRN PRN Reason: dry lips Last Admin: 06/20/17 21:08 Dose: 0.5 ea - Labs Labs: 06/21/17 07:12 06/21/17 07:12 PT 20.0 SECONDS (9.7-12.2) H D 06/21/17 07:12 INR 1.7 D 06/21/17 07:12 APTT 39 SECONDS (21-34) H D 06/21/17 07:12 - Constitutional Appears: Non-toxic, No Acute Distress, Chronically Ill - Head Exam Head Exam: ATRAUMATIC, NORMAL INSPECTION, NORMOCEPHALIC - Eye Exam Eye Exam: EOMI, Normal appearance, PERRL Pupil Exam: NORMAL ACCOMODATION - ENT Exam ENT Exam: Mucous Membranes Moist, Normal Exam, Normal Oropharynx, TM's Normal Bilaterally - Neck Exam Neck Exam: Normal Inspection - Respiratory Exam Respiratory Exam: Clear to Ausculation Bilateral, NORMAL BREATHING PATTERN - Cardiovascular Exam Cardiovascular Exam: Tachycardia, REGULAR RHYTHM, +S1, +S2 - GI/Abdominal Exam GI & Abdominal Exam: Soft, Mass, Normal Bowel Sounds - Rectal Exam Rectal Exam: NORMAL INSPECTION - Extremities Exam Extremities Exam: Full ROM, Normal Capillary Refill, Normal Inspection - Neurological Exam Neurological Exam: Alert, Awake, CN II-XII Intact, Normal Gait, Oriented x3 Neuro motor strength exam: Left Upper Extremity: 5, Right Upper Extremity: 5, Left Lower Extremity: 5, Right Lower Extremity: 5 - Psychiatric Exam Psychiatric exam: Normal Affect, Normal Mood Assessment and Plan (1) Coagulopathy Assessment & Plan: IMPROVED Status: Resolved (2) History of deep vein thrombosis (DVT) of lower extremity Status: Chronic (3) Pancreatic cancer Status: Chronic (4) Pulmonary emboli Status: Chronic
[2017-06-22] MEDS: Sodium Chloride 0.9% 1,000 ML IV SCH ×4 (01:55→18:08)
[2017-06-22 08:15] LABS: INR 2.1
[2017-06-22 08:31] LABS: BASO % 0.7 % (0.0-2.0); EOS # 0.1 K/uL (0.0-0.7); EOS % 4.7 % (0.0-4.0); HEMATOCRIT 22.8 % (34.0-47.0); LYMPH # 0.4 K/uL (1.0-4.3); LYMPH % 27.8 % (20.0-40.0); MEAN CELL VOLUME 91.8 fL (81.0-99.0); MEAN CORPUSCULAR HEMOGLOBIN 30.3 pg (27.0-31.0); MEAN PLATELET VOLUME 9.6 fL (7.2-11.7); MONO % 1.8 % (0.0-10.0); RED CELL DISTRIBUTION WIDTH 18.4 % (11.5-14.5); WHITE BLOOD COUNT 1.6 K/uL (4.8-10.8)
[2017-06-22 08:38] LABS: ALB/GLOB RATIO 0.7 (1.0-2.1); BILIRUBIN,TOTAL 4.6 mg/dL (0.2-1.3); CALCIUM 7.1 mg/dl (8.6-10.4); POTASSIUM 4.2 mmol/L (3.6-5.2); TOTAL PROTEIN 4.4 g/dL (6.3-8.3)
[2017-06-22] MEDS ORDERED: Piperacillin/Tazobact 3.375 GM in Sodium Chloride 100 ML IVPB SCH (15:15)
[2017-06-22] MEDS: Piperacill/Tazo 3.375gm in Dex 3.375 GM/50 ML BAG IVPB SCH (17:56)
--- NOTE | 2017-06-22 20:09 | CP.PCM.CON ---
History of Present Illness - History of Present Illness History of Present Illness: reason for consultation : history of DVT and pulmonary embolism 56 year old female with a history of, Hypertension, DVT/PE s/p IVC filter on anticoagulation diagnosed with pancreatic cancer with liver metastasis diagnosed in 05/2017 on chemotherapy. The patient received her first chemotherapy this past Saturday. She notes to increasing nausea and had an episode of hematemsis which prompted her to come to the ER. In the ER she was found to have an INR > 10 and given IV vit k. She reports to feeling better with resolution of her hematemsis. Review of Systems - Review of Systems All systems: reviewed and no additional remarkable complaints except (nausea and hematemesis) Past Patient History - Past Medical History & Family History Past Medical History?: Yes - Past Social History Smoking Status: Former Smoker - CARDIAC Hx Hypercholesterolemia: Yes Hx Hypertension: Yes - PULMONARY Hx Asthma: Yes - NEUROLOGICAL Hx Neurological Disorder: No - HEENT Hx HEENT Problems: Yes Other/Comment: GLASSES FOR READING - RENAL Hx Chronic Kidney Disease: No - ENDOCRINE/METABOLIC Hx Endocrine Disorders: No - HEMATOLOGICAL/ONCOLOGICAL Hx Blood Disorders: Yes Hx Cancer: Yes (LIVER CA AND LUNG CA) Other/Comment: DVT - INTEGUMENTARY Hx Dermatological Problems: No - MUSCULOSKELETAL/RHEUMATOLOGICAL Hx Musculoskeletal Disorders: No Hx Falls: No - GASTROINTESTINAL Hx Gastrointestinal Disorders: Yes Hx Gastroesophageal Reflux: Yes - GENITOURINARY/GYNECOLOGICAL Hx Genitourinary Disorders: No - PSYCHIATRIC Hx Substance Use: No - SURGICAL HISTORY Hx Surgeries: Yes Hx Vascular Access Device: Yes (portacath- R subclavian) Other/Comment: CYST LEFT BREAST YEARS. IVC filter - R leg - ANESTHESIA Hx Anesthesia: Yes Hx Anesthesia Reactions: No Hx Malignant Hyperthermia: No Meds Allergies/Adverse Reactions: Allergies Allergy/AdvReac Type Severity Reaction Status Date / Time No Known Allergies Allergy Verified 06/20/17 16:52 - Medications Medications: Current Medications Acetaminophen (Tylenol 325mg Tab) 650 mg PO Q6 PRN PRN Reason: Pain, moderate (4-7) Last Admin: 06/22/17 17:47 Dose: 650 mg Enoxaparin Sodium (Lovenox) 40 mg SC Q24H [facility] Last Admin: 06/21/17 22:41 Dose: 40 mg Fentanyl (Duragesic) 1 patch TD Q72H [facility] Last Admin: 06/20/17 21:08 Dose: 1 patch Sodium Chloride (Sodium Chloride 0.9%) 1,000 mls @ 150 mls/hr IV .Q6H40M [facility] Last Admin: 06/22/17 18:08 Dose: 150 mls/hr Piperacillin Sod/Tazobactam Sod (Zosyn 3.375 Gm Iv Premix) 3.375 gm in 50 mls @ 100 mls/hr IVPB Q8H [facility] Last Admin: 06/22/17 17:56 Dose: 100 mls/hr Morphine Sulfate (Morphine) 4 mg SC Q4 PRN PRN Reason: Pain, moderate (4-7) Ondansetron HCl (Zofran Inj) 4 mg IVP Q4 PRN PRN Reason: Nausea/Vomiting Pantoprazole Sodium (Protonix Inj) 40 mg IVP DAILY [facility] Last Admin: 06/22/17 10:03 Dose: Not Given Vitamin A (Vitamin A & D Oint Ud Foilpak) 0.5 ea TOP Q4 PRN PRN Reason: dry lips Last Admin: 06/20/17 21:08 Dose: 0.5 ea Physical Exam - Head Exam Head Exam: ATRAUMATIC, NORMOCEPHALIC - Eye Exam Eye Exam: Normal appearance - Respiratory Exam Respiratory Exam: Clear to Auscultation Bilateral - Cardiovascular Exam Cardiovascular Exam: REGULAR RHYTHM Results - Vital Signs Recent Vital Signs: Last Vital Signs Temp 98.1 F 06/22/17 15:20 Pulse 95 H 06/22/17 15:20 Resp 20 06/22/17 15:20 BP 96/61 L 06/22/17 15:20 Pulse Ox 96 06/22/17 15:20 - Labs Result Diagrams: 06/22/17 07:56 06/22/17 07:56 Labs: Laboratory Results - last 24 hr 06/22/17 06/22/17 06/22/17 07:56 07:56 07:56 WBC 1.6 L* D RBC 2.48 L Hgb 7.5 L Hct 22.8 L MCV 91.8 MCH 30.3 MCHC 33.0 RDW 18.4 H Plt Count 76 L D MPV 9.6 Neut % (Auto) 65.0 Lymph % (Auto) 27.8 Hubbard % (Auto) 1.8 Eos % (Auto) 4.7 H Baso % (Auto) 0.7 Neut # 1.0 L Lymph # 0.4 L Hubbard # 0.0 Eos # 0.1 Baso # 0.0 Differential Comment PT 24.9 H INR 2.1 Sodium 130 L Potassium 4.2 Chloride 100 Carbon Dioxide 20 L Anion Gap 14 BUN 40 H Creatinine 1.2 Est GFR ( Amer) 56 Est GFR (Non-Af Amer) 46 Random Glucose 93 Calcium 7.1 L Total Bilirubin 4.6 H AST 121 H D ALT 78 H D Alkaline Phosphatase 343 H D Total Protein 4.4 L Albumin 1.8 L Globulin 2.6 Albumin/Globulin Ratio 0.7 L Blood Type Antibody Screen Crossmatch 06/22/17 17:29 WBC RBC Hgb Hct MCV MCH MCHC RDW Plt Count MPV Neut % (Auto) Lymph % (Auto) Hubbard % (Auto) Eos % (Auto) Baso % (Auto) Neut # Lymph # Hubbard # Eos # Baso # Differential Comment PT INR Sodium Potassium Chloride Carbon Dioxide Anion Gap BUN Creatinine Est GFR ( Amer) Est GFR (Non-Af Amer) Random Glucose Calcium Total Bilirubin AST ALT Alkaline Phosphatase Total Protein Albumin Globulin Albumin/Globulin Ratio Blood Type A POSITIVE Antibody Screen Negative Crossmatch See Detail Assessment & Plan (1) Gastrointestinal hemorrhage Status: Acute (2) Coagulopathy Status: Acute Priority: High (3) History of deep vein thrombosis (DVT) of lower extremity Status: Chronic Priority: Medium (4) Pulmonary emboli Status: Chronic Priority: Low
[2017-06-22] MEDS: Mag&Al/Simet/Diphen/Lido 237 ML KIT PO SCH (20:41)
[2017-06-22] MEDS: Enoxaparin 40 mg Syringe SC SCH (21:57)
--- NOTE | 2017-06-22 23:58 | CP.PCM.PN ---
Subjective - Date & Time of Evaluation Date of Evaluation: 06/21/17 Time of Evaluation: 11:14 - Subjective Subjective: PAIN IN ABDOMEN, BP ON LOWE RSIDE, NO FEVER, NO SOB, EDEMA, INR 2.1 Objective - Vital Signs/Intake and Output Vital Signs (last 24 hours): Temp Pulse Resp BP Pulse Ox 97.9 F 98 H 20 88/56 L 96 06/22/17 23:17 06/22/17 21:38 06/22/17 21:38 06/22/17 21:38 06/22/17 15:20 Intake and Output: 06/22/17 06/23/17 18:59 06:59 Intake Total 1000 0 Balance 1000 0 - Medications Medications: Current Medications Acetaminophen (Tylenol 325mg Tab) 650 mg PO Q6 PRN PRN Reason: Pain, moderate (4-7) Last Admin: 06/22/17 23:17 Dose: 650 mg Enoxaparin Sodium (Lovenox) 40 mg SC Q24H [facility] Last Admin: 06/22/17 21:57 Dose: 40 mg Fentanyl (Duragesic) 1 patch TD Q72H [facility] Last Admin: 06/20/17 21:08 Dose: 1 patch Sodium Chloride (Sodium Chloride 0.9%) 1,000 mls @ 150 mls/hr IV .Q6H40M [facility] Last Admin: 06/22/17 18:08 Dose: 150 mls/hr Piperacillin Sod/Tazobactam Sod (Zosyn 3.375 Gm Iv Premix) 3.375 gm in 50 mls @ 100 mls/hr IVPB Q8H [facility] Last Admin: 06/22/17 17:56 Dose: 100 mls/hr Morphine Sulfate (Morphine) 4 mg SC Q4 PRN PRN Reason: Pain, moderate (4-7) Ondansetron HCl (Zofran Inj) 4 mg IVP Q4 PRN PRN Reason: Nausea/Vomiting Pantoprazole Sodium (Protonix Inj) 40 mg IVP DAILY [facility] Last Admin: 06/22/17 10:03 Dose: Not Given Saliva Substitute (First Magic Mouthwash) 5 ml PO Q4 [facility] Last Admin: 06/22/17 20:41 Dose: 5 ml Vitamin A (Vitamin A & D Oint Ud Foilpak) 0.5 ea TOP Q4 PRN PRN Reason: dry lips Last Admin: 06/20/17 21:08 Dose: 0.5 ea - Labs Labs: 06/22/17 07:56 06/22/17 07:56 PT 24.9 SECONDS (9.7-12.2) H 06/22/17 07:56 INR 2.1 06/22/17 07:56 APTT 39 SECONDS (21-34) H D 06/21/17 07:12 - Constitutional Appears: In Acute Distress, Chronically Ill - Head Exam Head Exam: ATRAUMATIC, NORMAL INSPECTION, NORMOCEPHALIC - Eye Exam Eye Exam: EOMI, Normal appearance, PERRL Pupil Exam: NORMAL ACCOMODATION - ENT Exam ENT Exam: Mucous Membranes Moist, Normal Exam, Normal Oropharynx, TM's Normal Bilaterally - Neck Exam Neck Exam: Normal Inspection - Respiratory Exam Respiratory Exam: Decreased Breath Sounds, Clear to Ausculation Bilateral, NORMAL BREATHING PATTERN - Cardiovascular Exam Cardiovascular Exam: Tachycardia, REGULAR RHYTHM, +S1, +S2 - GI/Abdominal Exam GI & Abdominal Exam: Mass, Normal Bowel Sounds - Extremities Exam Extremities Exam: Full ROM, Normal Capillary Refill, Pedal Edema - Neurological Exam Neurological Exam: Abnormal Gait, Alert, Awake, CN II-XII Intact, Oriented x3 Assessment and Plan (1) Coagulopathy Status: Resolved (2) History of deep vein thrombosis (DVT) of lower extremity Status: Chronic (3) Pancreatic cancer Status: Chronic (4) Pulmonary emboli Status: Chronic
[2017-06-23] MEDS ORDERED: Mag&Al/Simet/Diphen/Lido 237 ML KIT PO SCH
[2017-06-23] MEDS: Mag&Al/Simet/Diphen/Lido 237 ML KIT PO SCH ×6 (00:15→21:00)
[2017-06-23] MEDS: Piperacill/Tazo 3.375gm in Dex 3.375 GM/50 ML BAG IVPB SCH ×3 (00:18→16:00)
[2017-06-23] MEDS: Vitamins A & D Oint UD Foilpak TOP PRN ×2 (03:02→10:52)
--- NOTE | 2017-06-23 04:49 | CP.PCM.PN ---
Subjective - Date & Time of Evaluation Date of Evaluation: 06/22/17 Time of Evaluation: 19:45 - Subjective Subjective: Has pain in mouth when drinking Objective - Vital Signs/Intake and Output Vital Signs (last 24 hours): Temp Pulse Resp BP Pulse Ox 98.4 F 92 H 20 99/58 L 95 06/23/17 02:25 06/23/17 02:25 06/23/17 02:25 06/23/17 02:25 06/23/17 00:07 Intake and Output: 06/22/17 06/23/17 18:59 06:59 Intake Total 1000 775 Balance 1000 775 - Medications Medications: Current Medications Acetaminophen (Tylenol 325mg Tab) 650 mg PO Q6 PRN PRN Reason: Pain, moderate (4-7) Last Admin: 06/22/17 23:17 Dose: 650 mg Enoxaparin Sodium (Lovenox) 40 mg SC Q24H [facility] Last Admin: 06/22/17 21:57 Dose: 40 mg Fentanyl (Duragesic) 1 patch TD Q72H [facility] Last Admin: 06/20/17 21:08 Dose: 1 patch Sodium Chloride (Sodium Chloride 0.9%) 1,000 mls @ 150 mls/hr IV .Q6H40M [facility] Last Admin: 06/22/17 18:08 Dose: 150 mls/hr Piperacillin Sod/Tazobactam Sod (Zosyn 3.375 Gm Iv Premix) 3.375 gm in 50 mls @ 100 mls/hr IVPB Q8H [facility] Last Admin: 06/23/17 00:18 Dose: 100 mls/hr Morphine Sulfate (Morphine) 4 mg SC Q4 PRN PRN Reason: Pain, moderate (4-7) Ondansetron HCl (Zofran Inj) 4 mg IVP Q4 PRN PRN Reason: Nausea/Vomiting Pantoprazole Sodium (Protonix Inj) 40 mg IVP DAILY [facility] Last Admin: 06/22/17 10:03 Dose: Not Given Saliva Substitute (First Magic Mouthwash) 5 ml PO Q4 [facility] Last Admin: 06/23/17 00:15 Dose: 5 ml Vitamin A (Vitamin A & D Oint Ud Foilpak) 0.5 ea TOP Q4 PRN PRN Reason: dry lips Last Admin: 06/23/17 03:02 Dose: 0.5 ea - Labs Labs: 06/22/17 07:56 06/22/17 07:56 PT 24.9 SECONDS (9.7-12.2) H 06/22/17 07:56 INR 2.1 06/22/17 07:56 APTT 39 SECONDS (21-34) H D 06/21/17 07:12 - Head Exam Head Exam: ATRAUMATIC - Eye Exam Eye Exam: Normal appearance - ENT Exam ENT Exam: Mucous Membranes Dry - Respiratory Exam Respiratory Exam: NORMAL BREATHING PATTERN - Cardiovascular Exam Cardiovascular Exam: +S1, +S2 - GI/Abdominal Exam GI & Abdominal Exam: Normal Bowel Sounds - Extremities Exam Extremities Exam: Pedal Edema - Neurological Exam Neurological Exam: Oriented x3 - Skin Skin Exam: Warm Assessment and Plan (1) Pancytopenia Assessment & Plan: secondary to chemotherapy Neupogen if ANC < 500 to receive 2U PRBC no plt transfusion indication currently Status: Acute (2) Mucositis Assessment & Plan: secondary to chemotherapy will start magic mouth wash Status: Acute (3) Coagulopathy Assessment & Plan: coumadin held s/p vit k Status: Resolved (4) Pulmonary emboli Assessment & Plan: therapeutic anticoagulation held for bleeding has IVC filter Status: Chronic (5) Pancreatic cancer Assessment & Plan: stage IV with liver metastasis rising bilirubin; will fractionate outpatient chemotherapy Status: Chronic
[2017-06-23 07:33] LABS: INR 3.2
--- NOTE | 2017-06-23 07:46 | CP.PCM.CON ---
Addendum entered and electronically signed by Shaniqua Thompson DO 06/23/17 09:02 : will obtain CT A/P without contrast to evaluate for acute intra-abdominal processes Original Note: <Shaniqua Thompson - Last Filed: 06/23/17 08:20> History of Present Illness - History of Present Illness History of Present Illness: Gastroenterology Fellow/PGY5 Consult Note 56 year old female with history of Hypertension, Hyperlipidemia, Right lower extremity DVT (05/02/17), B/L PE 05/2017 s/p IVC filter, on Coumadin, and moderate -poorly differentiated pancreatic cancer diagnosed 05/2017 with liver metastases on chemotherapy (first dose 06/17/17) presenting with hematemesis. Patient notes siudden onset of nausea and one episode of 8 ounces of bright blood on (06/20/17). Associated lip and tongue burning sensation due to mucositis from chemotherapy leading to decreased oral intake since . Also notes no bowel movement for the last three days associated with abdominal distension and diffuse pain. Denies fever, chills, sweats acid reflux, indigestion, hematochezia, or melena. Prior EGD and colonoscopy 05/2017 showed Gastritis, descending/sigmoid diverticulosis, and descending/sigmoid/rectal polyps not biopsied due to anticoagulation. Family- Father- stage IV liver cancer diagnosed at 71 years of age, Mother-PUD Social- 40 pack year history, denies alcohol or illicit drug use Surgery-IVC filter, right subclavian Port-a-cath Review of Systems - Review of Systems Review of Systems: 12-point review of systems negative except for as above Past Patient History - Past Medical History & Family History Past Medical History?: Yes - Past Social History Smoking Status: Former Smoker - CARDIAC Hx Hypercholesterolemia: Yes Hx Hypertension: Yes - PULMONARY Hx Asthma: Yes - NEUROLOGICAL Hx Neurological Disorder: No - HEENT Hx HEENT Problems: Yes Other/Comment: GLASSES FOR READING - RENAL Hx Chronic Kidney Disease: No - ENDOCRINE/METABOLIC Hx Endocrine Disorders: No - HEMATOLOGICAL/ONCOLOGICAL Hx Blood Disorders: Yes Hx Cancer: Yes (LIVER CA AND LUNG CA) Other/Comment: DVT - INTEGUMENTARY Hx Dermatological Problems: No - MUSCULOSKELETAL/RHEUMATOLOGICAL Hx Musculoskeletal Disorders: No Hx Falls: No - GASTROINTESTINAL Hx Gastrointestinal Disorders: Yes Hx Gastroesophageal Reflux: Yes - GENITOURINARY/GYNECOLOGICAL Hx Genitourinary Disorders: No - PSYCHIATRIC Hx Substance Use: No - SURGICAL HISTORY Hx Surgeries: Yes Hx Vascular Access Device: Yes (portacath- R subclavian) Other/Comment: CYST LEFT BREAST YEARS. IVC filter - R leg - ANESTHESIA Hx Anesthesia: Yes Hx Anesthesia Reactions: No Hx Malignant Hyperthermia: No Meds Allergies/Adverse Reactions: Allergies Allergy/AdvReac Type Severity Reaction Status Date / Time No Known Allergies Allergy Verified 06/20/17 16:52 - Medications Medications: Current Medications Acetaminophen (Tylenol 325mg Tab) 650 mg PO Q6 PRN PRN Reason: Pain, moderate (4-7) Last Admin: 06/23/17 05:36 Dose: 650 mg Enoxaparin Sodium (Lovenox) 40 mg SC Q24H [facility] Last Admin: 06/22/17 21:57 Dose: 40 mg Fentanyl (Duragesic) 1 patch TD Q72H [facility] Last Admin: 06/20/17 21:08 Dose: 1 patch Sodium Chloride (Sodium Chloride 0.9%) 1,000 mls @ 150 mls/hr IV .Q6H40M [facility] Last Admin: 06/22/17 18:08 Dose: 150 mls/hr Piperacillin Sod/Tazobactam Sod (Zosyn 3.375 Gm Iv Premix) 3.375 gm in 50 mls @ 100 mls/hr IVPB Q8H [facility] Last Admin: 06/23/17 07:04 Dose: 100 mls/hr Morphine Sulfate (Morphine) 4 mg SC Q4 PRN PRN Reason: Pain, moderate (4-7) Ondansetron HCl (Zofran Inj) 4 mg IVP Q4 PRN PRN Reason: Nausea/Vomiting Pantoprazole Sodium (Protonix Inj) 40 mg IVP DAILY [facility] Last Admin: 06/22/17 10:03 Dose: Not Given Saliva Substitute (First Magic Mouthwash) 5 ml PO Q4 [facility] Last Admin: 06/23/17 04:37 Dose: 5 ml Vitamin A (Vitamin A & D Oint Ud Foilpak) 0.5 ea TOP Q4 PRN PRN Reason: dry lips Last Admin: 06/23/17 03:02 Dose: 0.5 ea Physical Exam - Constitutional Appears: No Acute Distress, Chronically Ill - Head Exam Head Exam: ATRAUMATIC, NORMOCEPHALIC - Eye Exam Eye Exam: EOMI, PERRL, Scleral icterus Pupil Exam: PERRL. absent: Miosis, Mydriatic - ENT Exam ENT Exam: Mucous Membranes Dry, Normal Oropharynx Additional comments: lip swelling, chapped, tongue erythema/swelling - Neck Exam Neck exam: Positive for: Full Rom, Normal Inspection - Respiratory Exam Respiratory Exam: Clear to Auscultation Bilateral. absent: Rales, Rhonchi, Wheezes - Cardiovascular Exam Cardiovascular Exam: RRR, +S1, +S2. absent: Gallop, Rubs - GI/Abdominal Exam GI & Abdominal Exam: Distended, Normal Bowel Sounds, Organomegaly, Soft, Tenderness. absent: Firm, Guarding, Rebound, Rigid Additional comments: diffuse tenderness to palpation, distended - Extremities Exam Extremities exam: Positive for: normal inspection, pedal edema - Neurological Exam Neurological exam: Alert - Psychiatric Exam Psychiatric exam: Normal Affect, Normal Mood - Skin Skin Exam: Dry, Intact, Normal Color, Warm Results - Vital Signs Recent Vital Signs: Last Vital Signs Temp 98.4 F 06/23/17 04:45 Pulse 91 H 06/23/17 04:45 Resp 20 06/23/17 04:45 BP 109/70 06/23/17 04:45 Pulse Ox 95 06/23/17 00:07 - Labs Result Diagrams: 06/23/17 04:00 06/23/17 07:15 Labs: Laboratory Results - last 24 hr 06/22/17 06/22/17 06/22/17 07:56 07:56 07:56 WBC 1.6 L* D RBC 2.48 L Hgb 7.5 L Hct 22.8 L MCV 91.8 MCH 30.3 MCHC 33.0 RDW 18.4 H Plt Count 76 L D MPV 9.6 Neut % (Auto) 65.0 Lymph % (Auto) 27.8 [place] % (Auto) 1.8 Eos % (Auto) 4.7 H Baso % (Auto) 0.7 Neut # 1.0 L Lymph # 0.4 L [place] # 0.0 Eos # 0.1 Baso # 0.0 Differential Comment PT 24.9 H INR 2.1 Sodium 130 L Potassium 4.2 Chloride 100 Carbon Dioxide 20 L Anion Gap 14 BUN 40 H Creatinine 1.2 Est GFR ( Amer) 56 Est GFR (Non-Af Amer) 46 Random Glucose 93 Calcium 7.1 L Total Bilirubin 4.6 H AST 121 H D ALT 78 H D Alkaline Phosphatase 343 H D Total Protein 4.4 L Albumin 1.8 L Globulin 2.6 Albumin/Globulin Ratio 0.7 L Blood Type Antibody Screen Crossmatch 06/22/17 17:29 WBC RBC Hgb Hct MCV MCH MCHC RDW Plt Count MPV Neut % (Auto) Lymph % (Auto) [place] % (Auto) Eos % (Auto) Baso % (Auto) Neut # Lymph # [place] # Eos # Baso # Differential Comment PT INR Sodium Potassium Chloride Carbon Dioxide Anion Gap BUN Creatinine Est GFR ( Amer) Est GFR (Non-Af Amer) Random Glucose Calcium Total Bilirubin AST ALT Alkaline Phosphatase Total Protein Albumin Globulin Albumin/Globulin Ratio Blood Type A POSITIVE Antibody Screen Negative Crossmatch See Detail Assessment & Plan - Assessment and Plan (Free Text) Assessment: 56 year old female with history of Hypertension, Hyperlipidemia, Right lower extremity DVT (05/02/17), B/L PE 05/2017 s/p IVC filter, on Coumadin, and moderate -poorly differentiated pancreatic cancer diagnosed 05/2017 with liver metastases on chemotherapy (first dose 06/17/17) presenting with hematemesis. Active treatment of Mucusitis and pancytopenia secondary to chemotherapy, abdominal pain with history of pancreatic cancer, supratherapeutic INR, UTI, and renal insufficiency. Prior EGD and colonoscopy 05/2017 showed Gastritis, descending/ sigmoid diverticulosis, and descending/sigmoid/rectal polyps not biopsied due to anticoagulation. Plan: >received 2U pRBC 06/22/17 >monitor H/H >continue Magic mouthwash for mucositis >Hem/Onc managing- follow up recommendations >ANC 210 >start neutropenic precautions >ordered Abdominal Ultraasound >worsening hyperbilirubinemia, multifactorial - possible new onset obstruction, chemotherapy >ordered direct bilirubin >ordered Dulcolax daily >encourage fluid hydration and diet intake >ordered Ensure supplements >on Moxifloxacin >follow up palliative care consult >will follow clinical course <J Carlos Cobos - Last Filed: 06/23/17 09:18> Meds - Medications Medications: Current Medications Acetaminophen (Tylenol 325mg Tab) 650 mg PO Q6 PRN PRN Reason: Pain, moderate (4-7) Last Admin: 06/23/17 05:36 Dose: 650 mg Bisacodyl (Dulcolax) 10 mg PO ONCE ONE Stop: 06/23/17 09:06 Enoxaparin Sodium (Lovenox) 40 mg SC Q24H [facility] Last Admin: 06/22/17 21:57 Dose: 40 mg Fentanyl (Duragesic) 1 patch TD Q72H [facility] Last Admin: 06/20/17 21:08 Dose: 1 patch Sodium Chloride (Sodium Chloride 0.9%) 1,000 mls @ 150 mls/hr IV .Q6H40M [facility] Last Admin: 06/22/17 18:08 Dose: 150 mls/hr Piperacillin Sod/Tazobactam Sod (Zosyn 3.375 Gm Iv Premix) 3.375 gm in 50 mls @ 100 mls/hr IVPB Q8H [facility] Last Admin: 06/23/17 07:04 Dose: 100 mls/hr Morphine Sulfate (Morphine) 4 mg SC Q4 PRN PRN Reason: Pain, moderate (4-7) Ondansetron HCl (Zofran Inj) 4 mg IVP Q4 PRN PRN Reason: Nausea/Vomiting Pantoprazole Sodium (Protonix Inj) 40 mg IVP DAILY [facility] Last Admin: 06/22/17 10:03 Dose: Not Given Polyethylene Glycol (Miralax) 17 gm PO DAILY [facility] Saliva Substitute (First Magic Mouthwash) 5 ml PO Q4 [facility] Last Admin: 06/23/17 04:37 Dose: 5 ml Vitamin A (Vitamin A & D Oint Ud Foilpak) 0.5 ea TOP Q4 PRN PRN Reason: dry lips Last Admin: 06/23/17 03:02 Dose: 0.5 ea Results - Vital Signs Recent Vital Signs: Last Vital Signs Temp 98.3 F 06/23/17 07:15 Pulse 91 H 06/23/17 08:00 Resp 20 06/23/17 07:15 BP 107/64 06/23/17 07:15 Pulse Ox 97 06/23/17 07:15 - Labs Result Diagrams: 06/23/17 04:00 06/23/17 07:15 Labs: Laboratory Results - last 24 hr 06/22/17 06/22/17 06/23/17 07:56 17:29 04:00 WBC 0.7 L* D RBC 3.18 L Hgb 9.5 L D Hct 28.9 L MCV 90.9 MCH 29.8 MCHC 32.8 L RDW 17.2 H Plt Count 42 L D MPV 8.8 Neut % (Auto) 30.2 L Lymph % (Auto) 61.1 H [place] % (Auto) 3.0 Eos % (Auto) 4.8 H Baso % (Auto) 0.9 Neut # 0.2 L Lymph # 0.4 L [place] # 0.0 Eos # 0.0 Baso # 0.0 Differential Comment PT INR Sodium Potassium Chloride Carbon Dioxide Anion Gap BUN Creatinine Est GFR ( Amer) Est GFR (Non-Af Amer) Random Glucose Calcium Total Bilirubin AST ALT Alkaline Phosphatase Total Protein Albumin Globulin Albumin/Globulin Ratio Blood Type A POSITIVE Antibody Screen Negative Crossmatch See Detail 06/23/17 06/23/17 07:15 07:15 WBC RBC Hgb Hct MCV MCH MCHC RDW Plt Count MPV Neut % (Auto) Lymph % (Auto) [place] % (Auto) Eos % (Auto) Baso % (Auto) Neut # Lymph # [place] # Eos # Baso # Differential Comment PT 37.1 H* D INR 3.2 D Sodium 129 L Potassium 4.2 Chloride 102 Carbon Dioxide 19 L Anion Gap 12 BUN 42 H Creatinine 1.4 H Est GFR ( Amer) 47 Est GFR (Non-Af Amer) 39 Random Glucose 84 Calcium 7.2 L Total Bilirubin 4.2 H AST 95 H D ALT 69 H Alkaline Phosphatase 305 H Total Protein 4.4 L Albumin 1.9 L Globulin 2.5 Albumin/Globulin Ratio 0.8 L Blood Type Antibody Screen Crossmatch Attending/Attestation - Attestation I have personally seen and examined this patient.: Yes I have fully participated in the care of the patient.: Yes I have reviewed all pertinent clinical information: Yes Notes (Text): 06/23/17 09:08 I have seen and examined patient with GI fellow. Agree with above documentation with the following additions. In brief, this is a 56 year old female with history of recently diagnosed metastatic pancreatic cancer, DVT/PE on coumadin, HTN, hyperlipidemia who presents to hospital who presents to hospital with complaint of hematemesis which occurred two days ago. She recently was started on chemotherapy on saturday (regimen unknown) and since then has developed oral mucositis with decreased PO intake. She continues to endorse significant generalized abdominal pain and constipation which are both similar to prior hospitalization. In addition, she now reports the development of jaundice and lethargy. She denies fever/chills or recurrent episodes of vomiting since arrival to hospital. No bowel movements in past 4 days. Stage IV pancreatic cancer with liver metastasis - on chemotherapy Neutropenia Hematemesis - resolved. Oral mucositis. DVT/PE on coumain - held due to supratherapeutic INR Abdominal distention, jaundice HTN Hyperlipidemia - Patient with calculated ANC of 210, requires neutropenic precautions and isolation - discussed with nursing staff who will reassign patient to different room - Continue with antibiotic therapy, await blood culture results - H/H stable, s/p PRBC transfusion therapy, continue to monitor - Diet as tolerated - Pain control - Continue with magic mouth wash, may add lidocaine swish/swallow for pain relief related to oral mucositis - Follow up oncology recommendations - LFTs elevated, will continue to monitor, fractionate bilirubin - Obtain abdominal US given new onset hyperbilirubinemia, prior PD dilation, patient may require palliative stent placement pending results - Obtain abdominal CT given abdominal distention - will have to be non-contrast since patient currently with difficulty tolerating PO - Bowel regimen to assist with constipation - Overall patient prognosis is quite poor given advanced disease, palliative care consultation requested, will follow up recommendations
[2017-06-23 07:47] LABS: BASO % 0.9 % (0.0-2.0); EOS % 4.8 % (0.0-4.0); HEMATOCRIT 28.9 % (34.0-47.0); LYMPH # 0.4 K/uL (1.0-4.3); LYMPH % 61.1 % (20.0-40.0); MEAN CELL VOLUME 90.9 fL (81.0-99.0); MEAN CORPUSCULAR HEMOGLOBIN 29.8 pg (27.0-31.0); MEAN CORPUSCULAR HGB CONC 32.8 g/dL (33.0-37.0); MEAN PLATELET VOLUME 8.8 fL (7.2-11.7); NRBC % 0.2 % (0.0-2.0); RED CELL DISTRIBUTION WIDTH 17.2 % (11.5-14.5)
[2017-06-23 07:49] LABS: BILIRUBIN,TOTAL 4.2 mg/dL (0.2-1.3); CALCIUM 7.2 mg/dl (8.6-10.4); POTASSIUM 4.2 mmol/L (3.6-5.2); TOTAL PROTEIN 4.4 g/dL (6.3-8.3)
[2017-06-23 07:58] LABS: WHITE BLOOD COUNT 0.7 K/uL (4.8-10.8)
[2017-06-23 08:00] LABS: ALB/GLOB RATIO 0.8 (1.0-2.1)
[2017-06-23] MEDS ORDERED: Bisacodyl 5mg EC Tab PO ONE ×2 (09:05→10:48)
--- NOTE | 2017-06-23 10:12 | CP.PCM.CON ---
History of Present Illness - History of Present Illness History of Present Illness: 56 year old female with a history of DVT/PE s/p IVC filter on anticoagulation diagnosed with pancreatic cancer with liver metastasis diagnosed in 05/2017 on chemotherapy, admitted hematemesis. The patient received her first chemotherapy this past Saturday. She notes to increasing nausea and had an episode of hematemsis which prompted her to come to the ER. In the ER she was found to have an INR > 10 and given IV vit k. She reports to feeling better with resolution of her hematemsis. Past medical history: DVT/PE, pancreatic cancer Past surgical history: Portacath Family history: Denies hematologic and oncology problems Social history: [place] tobacco abuse, denies alcohol, and illicit drug use. Allergies: NKA Review of systems: All remaining review of systems including HEENT, cardiovascular, respiratory, gastrointestinal, genitourinary, musculoskeleletal , dermatologic, neurologic, and psychiatric are negative unless mentioned in the HPI. Past Patient History - Past Medical History & Family History Past Medical History?: Yes - Past Social History Smoking Status: Former Smoker - CARDIAC Hx Hypercholesterolemia: Yes Hx Hypertension: Yes - PULMONARY Hx Asthma: Yes - NEUROLOGICAL Hx Neurological Disorder: No - HEENT Hx HEENT Problems: Yes Other/Comment: GLASSES FOR READING - RENAL Hx Chronic Kidney Disease: No - ENDOCRINE/METABOLIC Hx Endocrine Disorders: No - HEMATOLOGICAL/ONCOLOGICAL Hx Blood Disorders: Yes Hx Cancer: Yes (LIVER CA AND LUNG CA) Other/Comment: DVT - INTEGUMENTARY Hx Dermatological Problems: No - MUSCULOSKELETAL/RHEUMATOLOGICAL Hx Musculoskeletal Disorders: No Hx Falls: No - GASTROINTESTINAL Hx Gastrointestinal Disorders: Yes Hx Gastroesophageal Reflux: Yes - GENITOURINARY/GYNECOLOGICAL Hx Genitourinary Disorders: No - PSYCHIATRIC Hx Substance Use: No - SURGICAL HISTORY Hx Surgeries: Yes Hx Vascular Access Device: Yes (portacath- R subclavian) Other/Comment: CYST LEFT BREAST YEARS. IVC filter - R leg - ANESTHESIA Hx Anesthesia: Yes Hx Anesthesia Reactions: No Hx Malignant Hyperthermia: No Meds Allergies/Adverse Reactions: Allergies Allergy/AdvReac Type Severity Reaction Status Date / Time No Known Allergies Allergy Verified 06/20/17 16:52 - Medications Medications: Current Medications Acetaminophen (Tylenol 325mg Tab) 650 mg PO Q6 PRN PRN Reason: Pain, moderate (4-7) Last Admin: 06/23/17 05:36 Dose: 650 mg Fentanyl (Duragesic) 1 patch TD Q72H [facility] Last Admin: 06/20/17 21:08 Dose: 1 patch Sodium Chloride (Sodium Chloride 0.9%) 1,000 mls @ 150 mls/hr IV .Q6H40M [facility] Last Admin: 06/22/17 18:08 Dose: 150 mls/hr Piperacillin Sod/Tazobactam Sod (Zosyn 3.375 Gm Iv Premix) 3.375 gm in 50 mls @ 100 mls/hr IVPB Q8H [facility] Last Admin: 06/23/17 07:04 Dose: 100 mls/hr Ondansetron HCl (Zofran Inj) 4 mg IVP Q4 PRN PRN Reason: Nausea/Vomiting Pantoprazole Sodium (Protonix Inj) 40 mg IVP DAILY [facility] Last Admin: 06/22/17 10:03 Dose: Not Given Polyethylene Glycol (Miralax) 17 gm PO DAILY [facility] Saliva Substitute (First Magic Mouthwash) 5 ml PO Q4 [facility] Last Admin: 06/23/17 04:37 Dose: 5 ml Vitamin A (Vitamin A & D Oint Ud Foilpak) 0.5 ea TOP Q4 PRN PRN Reason: dry lips Last Admin: 06/23/17 03:02 Dose: 0.5 ea Results - Vital Signs Recent Vital Signs: Last Vital Signs Temp 98.3 F 06/23/17 07:15 Pulse 91 H 06/23/17 08:00 Resp 20 06/23/17 07:15 BP 107/64 06/23/17 07:15 Pulse Ox 97 06/23/17 07:15 - Labs Result Diagrams: 06/26/17 07:08 06/26/17 07:08 Labs: Laboratory Results - last 24 hr 06/22/17 06/23/17 06/23/17 17:29 04:00 07:15 WBC 0.7 L* D RBC 3.18 L Hgb 9.5 L D Hct 28.9 L MCV 90.9 MCH 29.8 MCHC 32.8 L RDW 17.2 H Plt Count 42 L D MPV 8.8 Neut % (Auto) 30.2 L Lymph % (Auto) 61.1 H [place] % (Auto) 3.0 Eos % (Auto) 4.8 H Baso % (Auto) 0.9 Neut # 0.2 L Lymph # 0.4 L [place] # 0.0 Eos # 0.0 Baso # 0.0 PT 37.1 H* D INR 3.2 D Sodium Potassium Chloride Carbon Dioxide Anion Gap BUN Creatinine Est GFR ( Amer) Est GFR (Non-Af Amer) Random Glucose Calcium Total Bilirubin AST ALT Alkaline Phosphatase Total Protein Albumin Globulin Albumin/Globulin Ratio Blood Type A POSITIVE Antibody Screen Negative Crossmatch See Detail 06/23/17 07:15 WBC RBC Hgb Hct MCV MCH MCHC RDW Plt Count MPV Neut % (Auto) Lymph % (Auto) [place] % (Auto) Eos % (Auto) Baso % (Auto) Neut # Lymph # [place] # Eos # Baso # PT INR Sodium 129 L Potassium 4.2 Chloride 102 Carbon Dioxide 19 L Anion Gap 12 BUN 42 H Creatinine 1.4 H Est GFR ( Amer) 47 Est GFR (Non-Af Amer) 39 Random Glucose 84 Calcium 7.2 L Total Bilirubin 4.2 H AST 95 H D ALT 69 H Alkaline Phosphatase 305 H Total Protein 4.4 L Albumin 1.9 L Globulin 2.5 Albumin/Globulin Ratio 0.8 L Blood Type Antibody Screen Crossmatch Assessment & Plan - Assessment and Plan (Free Text) Assessment: Assessment and Plan: supratherapeutic INR secondary to anticoagulation s/p vit k repeat coags Status: Acute Priority: High (2) Anemia Assessment and Plan: hematemesis resolved chronic disease and chemotherapy Status: Acute (3) Pulmonary emboli Assessment and Plan: with DVT has IVC filter anticoagulation on hold given hematemesis Status: Chronic Priority: Low (4) Pancreatic cancer Assessment and Plan: liver metastasis on chemotherapy Thank you for this interesting consult. Status: Chronic Priority: Medium
[2017-06-23] MEDS: POLYETHYLENE GLYCOL 3350 17 GM/Dose PACKET PO SCH (10:51)
[2017-06-23 12:03] LABS: FIBRINOGEN 292 mg/dL (200-400)
[2017-06-23 12:16] LABS: FDP INTERPRETATION POSITIVE (NEGATIVE); FDP QUANTITY >10<40 ug/mL (<10)
[2017-06-23] MEDS: Nystatin 100,000 Units/ml Oral Susp 5 ml UD PO SCH ×2 (17:35→23:00)
[2017-06-23] MEDS: Sodium Chloride 0.9% 1,000 ML IV SCH (17:55)
[2017-06-23] MEDS: oxyCODONE 20 mg ER Tab (oxyCONTIN) PO SCH (21:11)
--- NOTE | 2017-06-23 22:43 | CP.PCM.PN ---
Subjective - Date & Time of Evaluation Date of Evaluation: 06/23/17 Time of Evaluation: 11:19 - Subjective Subjective: S/P MICU EVAL, SHE IS STILL SICK, BP IS IMPROVED, WBC DOWN, NO FEVER Objective - Vital Signs/Intake and Output Vital Signs (last 24 hours): Temp Pulse Resp BP Pulse Ox 98.2 F 96 H 20 96/59 L 99 06/23/17 15:33 06/23/17 15:33 06/23/17 15:33 06/23/17 15:33 06/23/17 15:33 Intake and Output: 06/23/17 06/24/17 18:59 06:59 Intake Total 1295 Balance 1295 - Medications Medications: Current Medications Acetaminophen (Tylenol 325mg Tab) 650 mg PO Q6 PRN PRN Reason: Pain, moderate (4-7) Last Admin: 06/23/17 05:36 Dose: 650 mg Docusate Sodium (Colace) 100 mg PO TID [facility] Last Admin: 06/23/17 17:34 Dose: 100 mg Sodium Chloride (Sodium Chloride 0.9%) 1,000 mls @ 150 mls/hr IV .Q6H40M [facility] Last Admin: 06/23/17 17:55 Dose: Not Given Piperacillin Sod/Tazobactam Sod (Zosyn 3.375 Gm Iv Premix) 3.375 gm in 50 mls @ 100 mls/hr IVPB Q8H [facility] Last Admin: 06/23/17 16:00 Dose: 100 mls/hr Vancomycin HCl 1 gm/ Sodium (Chloride) 250 mls @ 166.7 mls/hr IVPB Q24H [facility] Lactulose (Enulose) 20 gm PO [facility] Morphine Sulfate (Morphine) 2 mg IVP Q4 PRN PRN Reason: Pain, moderate (4-7) Last Admin: 06/23/17 19:00 Dose: 2 mg Nystatin (Nystatin Oral Susp) 5 ml PO QID [facility] Last Admin: 06/23/17 17:35 Dose: 5 ml Ondansetron HCl (Zofran Inj) 4 mg IVP Q4 PRN PRN Reason: Nausea/Vomiting Last Admin: 06/23/17 17:35 Dose: 4 mg Oxycodone HCl (Oxycontin Extended Release Tab) 20 mg PO Q12 [facility] Last Admin: 06/23/17 21:11 Dose: 20 mg Pantoprazole Sodium (Protonix Inj) 40 mg IVP DAILY [facility] Last Admin: 06/23/17 10:51 Dose: 40 mg Polyethylene Glycol (Miralax) 17 gm PO DAILY [facility] Last Admin: 06/23/17 10:51 Dose: 17 gm Saliva Substitute (First Magic Mouthwash) 5 ml PO Q4 [facility] Last Admin: 06/23/17 21:00 Dose: 5 ml Vitamin A (Vitamin A & D Oint Ud Foilpak) 0.5 ea TOP Q4 PRN PRN Reason: dry lips Last Admin: 06/23/17 10:52 Dose: 0.5 ea - Labs Labs: 06/23/17 04:00 06/23/17 07:15 PT 37.1 SECONDS (9.7-12.2) H* D 06/23/17 07:15 INR 3.2 D 06/23/17 07:15 APTT 39 SECONDS (21-34) H D 06/21/17 07:12 - Constitutional Appears: Non-toxic, In Acute Distress, Chronically Ill - Head Exam Head Exam: ATRAUMATIC, NORMAL INSPECTION, NORMOCEPHALIC - Eye Exam Eye Exam: EOMI, Normal appearance, PERRL, Scleral icterus Pupil Exam: NORMAL ACCOMODATION - ENT Exam ENT Exam: Mucous Membranes Moist, Normal Exam, Normal Oropharynx, TM's Normal Bilaterally - Neck Exam Neck Exam: Normal Inspection - Respiratory Exam Respiratory Exam: NORMAL BREATHING PATTERN - Cardiovascular Exam Cardiovascular Exam: REGULAR RHYTHM, +S1, +S2 - GI/Abdominal Exam GI & Abdominal Exam: Distended, Mass, Normal Bowel Sounds - Extremities Exam Extremities Exam: Normal Capillary Refill, Pedal Edema - Neurological Exam Neurological Exam: Abnormal Gait, Alert, Awake, CN II-XII Intact, Oriented x3 Assessment and Plan (1) Coagulopathy Status: Resolved (2) History of deep vein thrombosis (DVT) of lower extremity Status: Chronic (3) Pancreatic cancer Status: Chronic (4) Pulmonary emboli Status: Chronic (5) UTI (urinary tract infection) Status: Acute
[2017-06-24] MEDS ORDERED: Sodium Chloride 0.9% 500 ML IV ONE (00:53)
[2017-06-24] MEDS: Mag&Al/Simet/Diphen/Lido 237 ML KIT PO SCH ×6 (01:00→19:44)
[2017-06-24] MEDS: Piperacill/Tazo 3.375gm in Dex 3.375 GM/50 ML BAG IVPB SCH ×3 (01:00→16:59)
[2017-06-24] MEDS: Vitamins A & D Oint UD Foilpak TOP PRN ×3 (02:47→19:44)
[2017-06-24] MEDS: Sodium Chloride 0.9% 1,000 ML IV SCH ×6 (02:48→19:06)
[2017-06-24 06:06] LABS: INR 5.4
[2017-06-24 06:08] LABS: BASO % 0.9 % (0.0-2.0); EOS % 3.3 % (0.0-4.0); HEMATOCRIT 26.7 % (34.0-47.0); LYMPH # 0.5 K/uL (1.0-4.3); LYMPH % 80.4 % (20.0-40.0); MEAN CELL VOLUME 91.2 fL (81.0-99.0); MEAN CORPUSCULAR HEMOGLOBIN 30.2 pg (27.0-31.0); MEAN CORPUSCULAR HGB CONC 33.1 g/dL (33.0-37.0); MEAN PLATELET VOLUME 9.5 fL (7.2-11.7); NRBC % 0.1 % (0.0-2.0); RED CELL DISTRIBUTION WIDTH 17.5 % (11.5-14.5)
[2017-06-24 06:12] LABS: POTASSIUM 4.3 mmol/L (3.6-5.2)
[2017-06-24 06:15] LABS: ALB/GLOB RATIO 0.7 (1.0-2.1); BILIRUBIN,TOTAL 3.1 mg/dL (0.2-1.3); TOTAL PROTEIN 4.3 g/dL (6.3-8.3)
[2017-06-24 06:16] LABS: CALCIUM 7.1 mg/dl (8.6-10.4)
[2017-06-24 06:31] LABS: WHITE BLOOD COUNT 0.7 K/uL (4.8-10.8)
[2017-06-24] MEDS: oxyCODONE 20 mg ER Tab (oxyCONTIN) PO SCH ×2 (10:30→21:02)
--- NOTE | 2017-06-24 10:40 | CP.PCM.PN ---
<Bunny Johnson - Last Filed: 06/24/17 10:41> Subjective - Date & Time of Evaluation Date of Evaluation: 06/24/17 Time of Evaluation: 08:30 - Subjective Subjective: PGY5 GI Fellow Progress Note Patient seen and examined bedside this morning. The patient states that she is feeling pain all over her body, particularly in her abdomen today. Admits to continued constipation. Having continued difficulty tolerating PO intake though tolerating water sips during visit. 12 system ROS performed and negative except where stated. Objective - Vital Signs/Intake and Output Vital Signs (last 24 hours): Temp Pulse Resp BP Pulse Ox 97.4 F L 99 H 20 100/65 97 06/24/17 08:26 06/24/17 08:26 06/24/17 08:26 06/24/17 08:26 06/24/17 08:26 Intake and Output: 06/24/17 06/24/17 06:59 18:59 Intake Total 2895 Balance 2895 - Medications Medications: Current Medications Acetaminophen (Tylenol 325mg Tab) 650 mg PO Q6 PRN PRN Reason: Pain, moderate (4-7) Last Admin: 06/23/17 05:36 Dose: 650 mg Docusate Sodium (Colace) 100 mg PO TID [facility] Last Admin: 06/23/17 17:34 Dose: 100 mg Sodium Chloride (Sodium Chloride 0.9%) 1,000 mls @ 150 mls/hr IV .Q6H40M [facility] Last Admin: 06/24/17 02:48 Dose: 150 mls/hr Piperacillin Sod/Tazobactam Sod (Zosyn 3.375 Gm Iv Premix) 3.375 gm in 50 mls @ 100 mls/hr IVPB Q8H [facility] Last Admin: 06/24/17 08:54 Dose: 100 mls/hr Vancomycin HCl 1 gm/ Sodium (Chloride) 250 mls @ 166.7 mls/hr IVPB Q24H [facility] Lactulose (Enulose) 20 gm PO HS [facility] Last Admin: 06/23/17 23:00 Dose: Not Given Morphine Sulfate (Morphine) 2 mg IVP Q4 PRN PRN Reason: Pain, moderate (4-7) Last Admin: 06/23/17 23:00 Dose: 2 mg Nystatin (Nystatin Oral Susp) 5 ml PO QID [facility] Last Admin: 06/23/17 23:00 Dose: Not Given Ondansetron HCl (Zofran Inj) 4 mg IVP Q4 PRN PRN Reason: Nausea/Vomiting Last Admin: 06/23/17 17:35 Dose: 4 mg Oxycodone HCl (Oxycontin Extended Release Tab) 20 mg PO Q12 [facility] Last Admin: 06/23/17 21:11 Dose: 20 mg Pantoprazole Sodium (Protonix Inj) 40 mg IVP DAILY [facility] Last Admin: 06/23/17 10:51 Dose: 40 mg Polyethylene Glycol (Miralax) 17 gm PO DAILY [facility] Last Admin: 06/23/17 10:51 Dose: 17 gm Saliva Substitute (First Magic Mouthwash) 5 ml PO Q4 [facility] Last Admin: 06/24/17 09:48 Dose: Not Given Vitamin A (Vitamin A & D Oint Ud Foilpak) 0.5 ea TOP Q4 PRN PRN Reason: dry lips Last Admin: 06/24/17 02:47 Dose: 0.5 ea - Labs Labs: 06/24/17 05:56 06/24/17 05:56 PT 64.6 SECONDS (9.7-12.2) H* D 06/24/17 05:56 INR 5.4 D 06/24/17 05:56 APTT 39 SECONDS (21-34) H D 06/21/17 07:12 - Constitutional Appears: No Acute Distress, Chronically Ill - Eye Exam Eye Exam: EOMI, PERRL - ENT Exam ENT Exam: Mucous Membranes Dry Additional comments: cracked lips c/w mucositis - Respiratory Exam Respiratory Exam: Clear to Ausculation Bilateral. absent: Rales, Rhonchi, Wheezes - Cardiovascular Exam Cardiovascular Exam: RRR, +S1, +S2 - GI/Abdominal Exam GI & Abdominal Exam: Soft, Tenderness, Normal Bowel Sounds. absent: Distended, Firm, Guarding, Rigid, Organomegaly - Extremities Exam Extremities Exam: Normal Inspection. absent: Pedal Edema - Neurological Exam Neurological Exam: Alert, Awake, Oriented x3 - Psychiatric Exam Psychiatric exam: Anxious, Depressed - Skin Skin Exam: Dry, Warm Assessment and Plan - Assessment and Plan (Free Text) Assessment: Patient is a 56yo female with PMHx significant for poorly differentiated pancreatic adenocarcinoma with metastatic disease to the liver S/P first round of chemotherapy on 06/20/17, RLE DVT, B/L PE s/p IVF filter on coumadin, HTN, HLD who presented to the ED with hematemesis. -Poorly differentiated pancreatic adenocarcinoma with liver metastases -Worsening -Mucositis -Pancytopenia -Supratherapeutic INR -Recent DVT/PE Plan: -Pain control -Bowel regimen as tolerated; added PRN dulcolax supp if not tolerating PO laxative therapy -Hold coumadin, consider IV Vit K supplementation -Continue magic mouthwash, can add viscous lidocaine if continued discomfort -Neutropenic precautions -ANC<500 - will benefit from neupogen - per hematology -Hematology/oncology - [place] - following -Recommend repeat imaging with CT A/P when patient can tolerate -Follow up palliative care consult -Follow clinical course <Josue Jean - Last Filed: 06/24/17 10:53> Objective - Vital Signs/Intake and Output Vital Signs (last 24 hours): Temp Pulse Resp BP Pulse Ox 97.4 F L 99 H 20 100/65 97 06/24/17 08:26 06/24/17 08:26 06/24/17 08:26 06/24/17 08:26 06/24/17 08:26 Intake and Output: 06/24/17 06/24/17 06:59 18:59 Intake Total 2895 Balance 2895 - Medications Medications: Current Medications Acetaminophen (Tylenol 325mg Tab) 650 mg PO Q6 PRN PRN Reason: Pain, moderate (4-7) Last Admin: 06/23/17 05:36 Dose: 650 mg Bisacodyl (Dulcolax) 10 mg [place] DAILY [facility] Stop: 06/28/17 10:01 Docusate Sodium (Colace) 100 mg PO TID [facility] Last Admin: 06/24/17 10:41 Dose: 100 mg Sodium Chloride (Sodium Chloride 0.9%) 1,000 mls @ 150 mls/hr IV .Q6H40M [facility] Last Admin: 06/24/17 10:39 Dose: 150 mls/hr Piperacillin Sod/Tazobactam Sod (Zosyn 3.375 Gm Iv Premix) 3.375 gm in 50 mls @ 100 mls/hr IVPB Q8H [facility] Last Admin: 06/24/17 08:54 Dose: 100 mls/hr Vancomycin HCl 1 gm/ Sodium (Chloride) 250 mls @ 166.7 mls/hr IVPB Q24H [facility] Last Admin: 06/24/17 10:38 Dose: 166.7 mls/hr Lactulose (Enulose) 20 gm PO HS [facility] Last Admin: 06/23/17 23:00 Dose: Not Given Morphine Sulfate (Morphine) 2 mg IVP Q4 PRN PRN Reason: Pain, moderate (4-7) Last Admin: 06/23/17 23:00 Dose: 2 mg Nystatin (Nystatin Oral Susp) 5 ml PO QID [facility] Last Admin: 06/24/17 10:44 Dose: Not Given Ondansetron HCl (Zofran Inj) 4 mg IVP Q4 PRN PRN Reason: Nausea/Vomiting Last Admin: 06/23/17 17:35 Dose: 4 mg Oxycodone HCl (Oxycontin Extended Release Tab) 20 mg PO Q12 [facility] Last Admin: 06/23/17 21:11 Dose: 20 mg Pantoprazole Sodium (Protonix Inj) 40 mg IVP DAILY [facility] Last Admin: 06/23/17 10:51 Dose: 40 mg Polyethylene Glycol (Miralax) 17 gm PO DAILY [facility] Last Admin: 06/24/17 10:41 Dose: 17 gm Saliva Substitute (First Magic Mouthwash) 5 ml PO Q4 [facility] Last Admin: 06/24/17 09:48 Dose: Not Given Vitamin A (Vitamin A & D Oint Ud Foilpak) 0.5 ea TOP Q4 PRN PRN Reason: dry lips Last Admin: 06/24/17 10:41 Dose: 0.5 ea - Labs Labs: 06/24/17 05:56 06/24/17 05:56 PT 64.6 SECONDS (9.7-12.2) H* D 06/24/17 05:56 INR 5.4 D 06/24/17 05:56 APTT 39 SECONDS (21-34) H D 06/21/17 07:12 Attending/Attestation - Attestation I have personally seen and examined this patient.: Yes I have fully participated in the care of the patient.: Yes I have reviewed all pertinent clinical information, including history, physical exam and plan: Yes Notes (Text): 06/24/17 10:50 56 year old female wit h/o metastatic pancreatic adenocarcinoma with liver metastases, dvt/pe on anticoagulation admitted with hematemesis, pancytopenia, mucositis, elevated lfts. 1. Pancreatic adenocarcinoma 2. Liver metastases 3. Elevated LFTs 4. Abdominal pain Plan: -supportive care for now -pain control, hydration -neutropenic protocol / treatment per Heme onc -recommend CT abdomen/pelvis to eval for malignant biliary obstruction -may need palliative ERCP with stent -may also benefit from celiac plexus neuroloysis by EUS -currently procedures contraindicated due to neutropenia, coagulopathy, thrombocytopenia
[2017-06-24] MEDS: POLYETHYLENE GLYCOL 3350 17 GM/Dose PACKET PO SCH (10:41)
[2017-06-24] MEDS: Nystatin 100,000 Units/ml Oral Susp 5 ml UD PO SCH ×4 (10:44→21:01)
--- NOTE | 2017-06-24 12:08 | CP.PCM.CON ---
History of Present Illness - History of Present Illness History of Present Illness: INFECTIOUS DISEASE CONSULT. HPI. . 56-year-old female with history of stage IV poorly differentiated pancreatic cancer diagnosed May 2017 with liver metastasis. Patient had her first dose of chemotherapy on 06/17/17 and presented to the emergency room on 06/20/17 with episode of hematemesis. Patient also noted burning of lip and tongue sensation due to mucositis from chemotherapy leading to decreased oral intake since . Patient also complains of abdominal distention and diffuse pain and constipation. Patient presently pancytopenic and neutropenic with a WBC count 0.7 secondary to chemotherapy. Patient presently started on IV Zosyn 3.12037 hourly and vancomycin 1 g every 24 hourly started 06/23/17 by PMD. Infectious disease consultation requested for neutropenic fevers, dysphagia and coagulopathy with INR of 3.2. Patient has a right superior vena cava Port-A-Cath and an IVC filter secondary to her DVT.PATIENT WAS ON COUMADIN WHICH HAS BEEN DISCONTINUED NOW SECONDARY TO HER INCREASED INR. Chest x-ray on admission showed right-sided Port-A-Cath and left upper lobe scattered densities 5 mm in size, significance of which is not clear. ALLERGY; NKA. Family- Father- stage IV liver cancer diagnosed at 71 years of age, Mother-PUD Social- 40 pack year history, denies alcohol or illicit drug use Surgery-IVC filter, right subclavian Port-a-cath MEDS; SEE MARS. Review of Systems - Constitutional Constitutional: Fatigue, Malaise - EENT Eyes: absent: Change in Vision, Floaters Nose/Mouth/Throat: Mouth Lesions (DRY LIPS AND MUCOSITIS.), Mouth Pain. absent : Epistaxis, Tongue Swelling - Cardiovascular Cardiovascular: Leg Edema (2+ LOWER EXTREMITIES.). absent: Chest Pain, Dyspnea - Respiratory Respiratory: absent: Cough, Dyspnea, Hemoptysis - Gastrointestinal Gastrointestinal: Abdominal Pain, Bloating, Constipation. absent: Nausea, Vomiting - Genitourinary Genitourinary: absent: Dysuria, Hematuria - Neurological Neurological: absent: Headaches, Vertigo - Endocrine Endocrine: Fatigue - Hematologic/Lymphatic Hematologic: As Per HPI, Easy Bleeding, Easy Bruising. absent: Lymphadenopathy Past Patient History - Past Medical History & Family History Past Medical History?: Yes - Past Social History Smoking Status: Former Smoker - CARDIAC Hx Hypercholesterolemia: Yes Hx Hypertension: Yes - PULMONARY Hx Asthma: Yes - NEUROLOGICAL Hx Neurological Disorder: No - HEENT Hx HEENT Problems: Yes Other/Comment: GLASSES FOR READING - RENAL Hx Chronic Kidney Disease: No - ENDOCRINE/METABOLIC Hx Endocrine Disorders: No - HEMATOLOGICAL/ONCOLOGICAL Hx Blood Disorders: Yes Hx Cancer: Yes (LIVER CA AND LUNG CA) Other/Comment: DVT - INTEGUMENTARY Hx Dermatological Problems: No - MUSCULOSKELETAL/RHEUMATOLOGICAL Hx Musculoskeletal Disorders: No Hx Falls: No - GASTROINTESTINAL Hx Gastrointestinal Disorders: Yes Hx Gastroesophageal Reflux: Yes - GENITOURINARY/GYNECOLOGICAL Hx Genitourinary Disorders: No - PSYCHIATRIC Hx Substance Use: No - SURGICAL HISTORY Hx Surgeries: Yes Hx Vascular Access Device: Yes (portacath- R subclavian) Other/Comment: CYST LEFT BREAST YEARS. IVC filter - R leg - ANESTHESIA Hx Anesthesia: Yes Hx Anesthesia Reactions: No Hx Malignant Hyperthermia: No Meds Allergies/Adverse Reactions: Allergies Allergy/AdvReac Type Severity Reaction Status Date / Time No Known Allergies Allergy Verified 06/20/17 16:52 - Medications Medications: Current Medications Acetaminophen (Tylenol 325mg Tab) 650 mg PO Q6 PRN PRN Reason: Pain, moderate (4-7) Last Admin: 06/23/17 05:36 Dose: 650 mg Bisacodyl (Dulcolax) 10 mg [place] DAILY [facility] Stop: 06/28/17 10:01 Last Admin: 06/24/17 11:38 Dose: 10 mg Docusate Sodium (Colace) 100 mg PO TID [facility] Last Admin: 06/24/17 10:41 Dose: 100 mg Sodium Chloride (Sodium Chloride 0.9%) 1,000 mls @ 150 mls/hr IV .Q6H40M [facility] Last Admin: 06/24/17 10:39 Dose: 150 mls/hr Piperacillin Sod/Tazobactam Sod (Zosyn 3.375 Gm Iv Premix) 3.375 gm in 50 mls @ 100 mls/hr IVPB Q8H [facility] Last Admin: 06/24/17 08:54 Dose: 100 mls/hr Vancomycin HCl 1 gm/ Sodium (Chloride) 250 mls @ 166.7 mls/hr IVPB Q24H [facility] Last Admin: 06/24/17 10:38 Dose: 166.7 mls/hr Lactulose (Enulose) 20 gm PO HS [facility] Last Admin: 06/23/17 23:00 Dose: Not Given Morphine Sulfate (Morphine) 2 mg IVP Q4 PRN PRN Reason: Pain, moderate (4-7) Last Admin: 06/23/17 23:00 Dose: 2 mg Nystatin (Nystatin Oral Susp) 5 ml PO QID [facility] Last Admin: 06/24/17 10:44 Dose: Not Given Ondansetron HCl (Zofran Inj) 4 mg IVP Q4 PRN PRN Reason: Nausea/Vomiting Last Admin: 06/23/17 17:35 Dose: 4 mg Oxycodone HCl (Oxycontin Extended Release Tab) 20 mg PO Q12 [facility] Last Admin: 06/24/17 10:30 Dose: Not Given Pantoprazole Sodium (Protonix Inj) 40 mg IVP DAILY [facility] Last Admin: 06/24/17 10:50 Dose: 40 mg Polyethylene Glycol (Miralax) 17 gm PO DAILY [facility] Last Admin: 06/24/17 10:41 Dose: 17 gm Saliva Substitute (First Magic Mouthwash) 5 ml PO Q4 [facility] Last Admin: 06/24/17 09:48 Dose: Not Given Vitamin A (Vitamin A & D Oint Ud Foilpak) 0.5 ea TOP Q4 PRN PRN Reason: dry lips Last Admin: 06/24/17 10:41 Dose: 0.5 ea Physical Exam - Constitutional Appears: Chronically Ill - Head Exam Head Exam: NORMAL INSPECTION - Eye Exam Eye Exam: EOMI, PERRL, Scleral icterus - ENT Exam ENT Exam: Mucous Membranes Dry (LIPS DRY AND CHAFFING. OLD CLOTTED BLOOD.), Normal Oropharynx - Neck Exam Neck exam: Positive for: Normal Inspection. Negative for: Meningismus - Respiratory Exam Respiratory Exam: Decreased Breath Sounds, NORMAL BREATHING PATTERN - Cardiovascular Exam Cardiovascular Exam: REGULAR RHYTHM, +S1, +S2 - GI/Abdominal Exam GI & Abdominal Exam: Distended, Hypoactive Bowel Sounds, Soft, Tenderness ( GENERALIZED. pOSITIVE ASCITES..) - Extremities Exam Extremities exam: Positive for: pedal edema (3+), pedal pulses present. Negative for: calf tenderness - Neurological Exam Neurological exam: Alert, CN II-XII Intact, Oriented x3 - Psychiatric Exam Psychiatric exam: Depressed, Flat Affect - Skin Skin Exam: Pallor, Warm Results - Vital Signs Recent Vital Signs: Last Vital Signs Temp 97.4 F L 08/14/17 08:26 Pulse 99 H 06/24/17 08:26 Resp 20 06/24/17 08:26 BP 100/65 06/24/17 08:26 Pulse Ox 97 06/24/17 08:26 - Labs Result Diagrams: 06/24/17 05:56 06/24/17 05:56 Labs: Laboratory Results - last 24 hr 06/23/17 06/23/17 06/24/17 11:40 15:27 05:56 WBC 0.7 L* RBC 2.93 L Hgb 8.8 L Hct 26.7 L MCV 91.2 MCH 30.2 MCHC 33.1 RDW 17.5 H Plt Count 24 L* D MPV 9.5 Neut % (Auto) 9.4 L Lymph % (Auto) 80.4 H [place] % (Auto) 6.0 Eos % (Auto) 3.3 Baso % (Auto) 0.9 Neut # 0.1 L Lymph # 0.5 L [place] # 0.0 Eos # 0.0 Baso # 0.0 Total Counted Cancelled Neutrophils % (Manual) Cancelled Band Neutrophils % Cancelled Lymphocytes % (Manual) Cancelled Reactive Lymphs % Cancelled Monocytes % (Manual) Cancelled Eosinophils % (Manual) Cancelled Basophils % (Manual) Cancelled Metamyelocytes % Cancelled Myelocytes % Cancelled Promyelocytes % Cancelled Blast Cells % Cancelled Plasma Cell % (Manual) Cancelled Nucleated RBC % Cancelled Hypersegmented Polys Cancelled Smudge Cells Cancelled Toxic Granulation Cancelled Dohle Bodies Cancelled Renee Rods Cancelled Platelet Estimate Cancelled Plt Clumps, EDTA Cancelled Large Platelets Cancelled Giant Platelets Cancelled RBC Morphology Cancelled Polychromasia Cancelled Hypochromasia (manual) Cancelled Poikilocytosis (manual Cancelled Basophilic Stippling Cancelled Anisocytosis (manual) Cancelled Microcytosis (manual) Cancelled Macrocytosis (manual) Cancelled Spherocytes Cancelled Sickle Cells Cancelled Target Cells Cancelled Tear Drop Cells Cancelled Ovalocytes Cancelled Stomatocytes Cancelled Helmet Cells Cancelled Gill-Badger Bodies Cancelled [place] Cells Cancelled Acanthocytes (Spur) Cancelled Rouleaux Cancelled Schistocytes Cancelled PT INR Fibrinogen 292 Fibrin Degrad Products Positive H Fibrin Degrad Prod, Qt >10<40 H Sodium Potassium Chloride Carbon Dioxide Anion Gap BUN Creatinine Est GFR ( Amer) Est GFR (Non-Af Amer) Random Glucose Calcium Total Bilirubin AST ALT Alkaline Phosphatase Total Protein Albumin Globulin Albumin/Globulin Ratio Stool Occult Blood Positive H 06/24/17 06/24/17 05:56 05:56 WBC RBC Hgb Hct MCV MCH MCHC RDW Plt Count MPV Neut % (Auto) Lymph % (Auto) [place] % (Auto) Eos % (Auto) Baso % (Auto) Neut # Lymph # [place] # Eos # Baso # Total Counted Neutrophils % (Manual) Band Neutrophils % Lymphocytes % (Manual) Reactive Lymphs % Monocytes % (Manual) Eosinophils % (Manual) Basophils % (Manual) Metamyelocytes % Myelocytes % Promyelocytes % Blast Cells % Plasma Cell % (Manual) Nucleated RBC % Hypersegmented Polys Smudge Cells Toxic Granulation Dohle Bodies Renee Rods Platelet Estimate Plt Clumps, EDTA Large Platelets Giant Platelets RBC Morphology Polychromasia Hypochromasia (manual) Poikilocytosis (manual Basophilic Stippling Anisocytosis (manual) Microcytosis (manual) Macrocytosis (manual) Spherocytes Sickle Cells Target Cells Tear Drop Cells Ovalocytes Stomatocytes Helmet Cells Gill-Badger Bodies [place] Cells Acanthocytes (Spur) Rouleaux Schistocytes PT 64.6 H* D INR 5.4 D Fibrinogen Fibrin Degrad Products Fibrin Degrad Prod, Qt Sodium 130 L Potassium 4.3 Chloride 103 Carbon Dioxide 16 L Anion Gap 15 BUN 40 H Creatinine 1.9 H Est GFR ( Amer) 33 Est GFR (Non-Af Amer) 27 Random Glucose 74 Calcium 7.1 L Total Bilirubin 3.1 H AST 84 H ALT 64 H Alkaline Phosphatase 263 H Total Protein 4.3 L Albumin 1.8 L Globulin 2.5 Albumin/Globulin Ratio 0.7 L Stool Occult Blood - Imaging and Cardiology Chest x-ray Status: Report reviewed by me Assessment & Plan (1) Pancytopenia Status: Acute (2) Mucositis Status: Acute (3) Abdominal pain Status: Acute (4) Gastrointestinal hemorrhage Status: Acute (5) Anemia Status: Acute (6) Liver lesion Status: Acute (7) Lung nodules Status: Acute (8) CASSIE (acute kidney injury) Status: Chronic (9) Pancreatic carcinoma metastatic to liver Status: Acute - Assessment and Plan (Free Text) Plan: PLAN; PANCULTURES UA/URINE CULTURES. CONTINUE iv zOSYN 3.375 EVERY 8 HOURLY .06/21/17 CONTINUE iv VANCOMYCIN 1 G EVERY 24 HOURLY 06/23/17. MONITOR RENAL FUNCTIONS CLOSELY MONITOR LFTS . NEUTROPENIC PRECAUTIONS. CONTINUE mAGIC MOUTHWASH WITH LIDOCAINE PER gi ADD NYSTATIN 5 Ml SWISH AND SWALLOW 3 TIMES A DAY. MRSA SCREENING. PT ON GRANIX nEUPOGEN PER HEME/ ONC. WILL FOLLOW PATIENT CLOSELY ALONG WITH YOU PROGNOSIS GUARDED.
--- NOTE | 2017-06-24 12:14 | CP.PCM.PN ---
Subjective - Date & Time of Evaluation Date of Evaluation: 06/24/17 Time of Evaluation: 10:00 - Subjective Subjective: the patient seen and examined Lying comfortably in no acute distress 6yo female with PMHx significant for poorly differentiated pancreatic adenocarcinoma with metastatic disease to the liver S/P first round of chemotherapy on 06/20/17, RLE DVT, B/L PE s/p IVF filter on coumadin, HTN, HLD who presented to the ED with hematemesis. No further bleeding Seen by infectious disease and gastroenterology Objective - Vital Signs/Intake and Output Vital Signs (last 24 hours): Temp Pulse Resp BP Pulse Ox 97.4 F L 99 H 20 100/65 97 06/24/17 08:26 06/24/17 08:26 06/24/17 08:26 06/24/17 08:26 06/24/17 08:26 Intake and Output: 06/24/17 06/24/17 06:59 18:59 Intake Total 2895 Balance 2895 - Medications Medications: Current Medications Acetaminophen (Tylenol 325mg Tab) 650 mg PO Q6 PRN PRN Reason: Pain, moderate (4-7) Last Admin: 06/23/17 05:36 Dose: 650 mg Bisacodyl (Dulcolax) 10 mg [place] DAILY [facility] Stop: 06/28/17 10:01 Last Admin: 06/24/17 11:38 Dose: 10 mg Docusate Sodium (Colace) 100 mg PO TID [facility] Last Admin: 06/24/17 10:41 Dose: 100 mg Sodium Chloride (Sodium Chloride 0.9%) 1,000 mls @ 150 mls/hr IV .Q6H40M [facility] Last Admin: 06/24/17 10:39 Dose: 150 mls/hr Piperacillin Sod/Tazobactam Sod (Zosyn 3.375 Gm Iv Premix) 3.375 gm in 50 mls @ 100 mls/hr IVPB Q8H [facility] Last Admin: 06/24/17 08:54 Dose: 100 mls/hr Vancomycin HCl 1 gm/ Sodium (Chloride) 250 mls @ 166.7 mls/hr IVPB Q24H [facility] Last Admin: 06/24/17 10:38 Dose: 166.7 mls/hr Lactulose (Enulose) 20 gm PO HS [facility] Last Admin: 06/23/17 23:00 Dose: Not Given Morphine Sulfate (Morphine) 2 mg IVP Q4 PRN PRN Reason: Pain, moderate (4-7) Last Admin: 06/23/17 23:00 Dose: 2 mg Nystatin (Nystatin Oral Susp) 5 ml PO QID [facility] Last Admin: 06/24/17 10:44 Dose: Not Given Ondansetron HCl (Zofran Inj) 4 mg IVP Q4 PRN PRN Reason: Nausea/Vomiting Last Admin: 06/23/17 17:35 Dose: 4 mg Oxycodone HCl (Oxycontin Extended Release Tab) 20 mg PO Q12 [facility] Last Admin: 06/24/17 10:30 Dose: Not Given Pantoprazole Sodium (Protonix Inj) 40 mg IVP DAILY [facility] Last Admin: 06/24/17 10:50 Dose: 40 mg Polyethylene Glycol (Miralax) 17 gm PO DAILY [facility] Last Admin: 06/24/17 10:41 Dose: 17 gm Saliva Substitute (First Magic Mouthwash) 5 ml PO Q4 [facility] Last Admin: 06/24/17 09:48 Dose: Not Given Vitamin A (Vitamin A & D Oint Ud Foilpak) 0.5 ea TOP Q4 PRN PRN Reason: dry lips Last Admin: 06/24/17 10:41 Dose: 0.5 ea - Labs Labs: 06/24/17 05:56 06/24/17 05:56 PT 64.6 SECONDS (9.7-12.2) H* D 06/24/17 05:56 INR 5.4 D 06/24/17 05:56 APTT 39 SECONDS (21-34) H D 06/21/17 07:12 Assessment and Plan (1) Gastrointestinal hemorrhage Status: Acute (2) Coagulopathy Status: Resolved (3) History of deep vein thrombosis (DVT) of lower extremity Status: Chronic (4) Pulmonary emboli Status: Chronic
--- NOTE | 2017-06-24 13:11 | CP.PCM.CON ---
History of Present Illness - History of Present Illness History of Present Illness: Palliative consult Requested by Dallas ORTEGA reason: Goals of care discussion patient is a 57 yo lady known to me from previous admission, when patient was newly diagnosed with metastatis pancreatic cancer. At that time pain was her biggest concern and was addressed on discharge. Patient fallowed up with Doctor Porter's office for chemo Tx. Her last chemo was last Saturday. Patient reports feeling nauseated ever since with poor appetite. On the day of admission patient reported coffee ground emesis . The EMS found patient with elevated HR and BP. Patient was given IVF and Zofran for nausea en route. Due to extremely low WBC of 07, patient was placed on reverse isolation. This morning the 6 T nurse called saying that patient wanted to sign the POLST. PMH: PE, on anticoagulation, metastatis pancreatic CA Soc. Hx: lives at home with one daughter, single Fam Hx: father from pancreas CA while on Hospice Review of Systems - Constitutional Constitutional: Fatigue, Malaise - EENT Eyes: absent: As Per HPI, Blind Spots, Blurred Vision, Change in Vision, Decreased Night Vision, Diplopia, Discharge, Dry Eye, Exophthalmos, Floaters, Irritation, Itchy Eyes, Loss of Peripheral Vision, Pain, Photophobia, Requires Corrective Lenses, Sees Flashes, Spots in Vision, Tunnel Vision, Other Visual Disturbances, Loss of Vision, Other Ears: absent: As Per HPI, Decreased Hearing, Ear Discharge, Ear Pain, Tinnitus, Abnormal Hearing, Disequilibrium, Dizziness, Other Nose/Mouth/Throat: absent: As Per HPI, Epistaxis, Nasal Congestion, Nasal Discharge, Nasal Obstruction, Nasal Trauma, Nose Pain, Post Nasal Drip, Sinus Pain, Sinus Pressure, Bleeding Gums, Change in Voice, Dental Pain, Dry Mouth, Dysphagia, Halitosis, Hoarsness, Lip Swelling, Mouth Lesions, Mouth Pain, Odynophagia, Sore Throat, Throat Swelling, Tongue Swelling, Facial Pain, Neck Pain, Neck Mass, Other - Breasts Breasts: absent: As Per HPI, Change in Shape, Mass, Pain, Nipple Discharge, Nipple Inversion, Skin Changes, Swelling, Other - Cardiovascular Cardiovascular: Pedal Edema - Respiratory Respiratory: Dyspnea on Exertion - Gastrointestinal Gastrointestinal: Coffee Ground Emesis, Nausea, Vomiting - Genitourinary Genitourinary: absent: As Per HPI, Change in Urinary Stream, Difficulty Urinating, Dysuria, Flank Pain, Hematuria, Pyuria, Nocturia, Urinary Incontinence, Urinary Frequency, Urinary Hesitance, Urinary Urgency, Voiding Freq/Small Amts, Freq UTI, Hx Renal/Bladder Calculi, Hx /Renal Surgery, Bladder Distension, Other - Reproductive: Female Reproductive:Female: Post Menopausal - Menstruation Menstruation: Post Menopausal - Musculoskeletal Musculoskeletal: Muscle Weakness, Myalgias - Integumentary Integumentary: Dry Skin, Skin Ulcer - Neurological Neurological: Weakness - Psychiatric Psychiatric: Anxiety - Endocrine Endocrine: absent: As Per HPI, Change in Body Appearance, Change in Libido, Cold Intolorance, Deepening of Voice, Excessive Sweating, Fatigue, Flushing, Heat Intolorance, Increase in Ring/Shoe/Hat Size, Palpitations, Polydipsia, Polyphagia, Polyuria, Other - Hematologic/Lymphatic Hematologic: Easy Bruising Past Patient History - Past Medical History & Family History Past Medical History?: Yes - Past Social History Smoking Status: Former Smoker - CARDIAC Hx Hypercholesterolemia: Yes Hx Hypertension: Yes - PULMONARY Hx Asthma: Yes - NEUROLOGICAL Hx Neurological Disorder: No - HEENT Hx HEENT Problems: Yes Other/Comment: GLASSES FOR READING - RENAL Hx Chronic Kidney Disease: No - ENDOCRINE/METABOLIC Hx Endocrine Disorders: No - HEMATOLOGICAL/ONCOLOGICAL Hx Blood Disorders: Yes Hx Cancer: Yes (LIVER CA AND LUNG CA) Other/Comment: DVT - INTEGUMENTARY Hx Dermatological Problems: No - MUSCULOSKELETAL/RHEUMATOLOGICAL Hx Musculoskeletal Disorders: No Hx Falls: No - GASTROINTESTINAL Hx Gastrointestinal Disorders: Yes Hx Gastroesophageal Reflux: Yes - GENITOURINARY/GYNECOLOGICAL Hx Genitourinary Disorders: No - PSYCHIATRIC Hx Substance Use: No - SURGICAL HISTORY Hx Surgeries: Yes Hx Vascular Access Device: Yes (portacath- R subclavian) Other/Comment: CYST LEFT BREAST YEARS. IVC filter - R leg - ANESTHESIA Hx Anesthesia: Yes Hx Anesthesia Reactions: No Hx Malignant Hyperthermia: No Meds Allergies/Adverse Reactions: Allergies Allergy/AdvReac Type Severity Reaction Status Date / Time No Known Allergies Allergy Verified 06/20/17 16:52 - Medications Medications: Current Medications Acetaminophen (Tylenol 325mg Tab) 650 mg PO Q6 PRN PRN Reason: Pain, moderate (4-7) Last Admin: 06/23/17 05:36 Dose: 650 mg Bisacodyl (Dulcolax) 10 mg [place] DAILY [facility] Stop: 06/28/17 10:01 Last Admin: 06/24/17 11:38 Dose: 10 mg Docusate Sodium (Colace) 100 mg PO TID [facility] Last Admin: 06/24/17 10:41 Dose: 100 mg Sodium Chloride (Sodium Chloride 0.9%) 1,000 mls @ 150 mls/hr IV .Q6H40M [facility] Last Admin: 06/24/17 10:39 Dose: 150 mls/hr Piperacillin Sod/Tazobactam Sod (Zosyn 3.375 Gm Iv Premix) 3.375 gm in 50 mls @ 100 mls/hr IVPB Q8H [facility] Last Admin: 06/24/17 08:54 Dose: 100 mls/hr Vancomycin HCl 1 gm/ Sodium (Chloride) 250 mls @ 166.7 mls/hr IVPB Q24H [facility] Last Admin: 06/24/17 10:38 Dose: 166.7 mls/hr Lactulose (Enulose) 20 gm PO HS [facility] Last Admin: 06/23/17 23:00 Dose: Not Given Morphine Sulfate (Morphine) 2 mg IVP Q4 PRN PRN Reason: Pain, moderate (4-7) Last Admin: 06/23/17 23:00 Dose: 2 mg Nystatin (Nystatin Oral Susp) 5 ml PO QID [facility] Last Admin: 06/24/17 10:44 Dose: Not Given Ondansetron HCl (Zofran Inj) 4 mg IVP Q4 PRN PRN Reason: Nausea/Vomiting Last Admin: 06/23/17 17:35 Dose: 4 mg Oxycodone HCl (Oxycontin Extended Release Tab) 20 mg PO Q12 [facility] Last Admin: 06/24/17 10:30 Dose: Not Given Pantoprazole Sodium (Protonix Inj) 40 mg IVP DAILY [facility] Last Admin: 06/24/17 10:50 Dose: 40 mg Polyethylene Glycol (Miralax) 17 gm PO DAILY [facility] Last Admin: 06/24/17 10:41 Dose: 17 gm Saliva Substitute (First Magic Mouthwash) 5 ml PO Q4 [facility] Last Admin: 06/24/17 09:48 Dose: Not Given Vitamin A (Vitamin A & D Oint Ud Foilpak) 0.5 ea TOP Q4 PRN PRN Reason: dry lips Last Admin: 06/24/17 10:41 Dose: 0.5 ea Physical Exam - Constitutional Appears: Chronically Ill - Head Exam Head Exam: ATRAUMATIC, NORMAL INSPECTION, NORMOCEPHALIC - Eye Exam Eye Exam: EOMI, Normal appearance, PERRL Pupil Exam: NORMAL ACCOMODATION, PERRL - ENT Exam ENT Exam: Mucous Membranes Dry Additional comments: open ulcer sore to lower lip - Neck Exam Neck exam: Positive for: Normal Inspection - Respiratory Exam Respiratory Exam: Decreased Breath Sounds - Cardiovascular Exam Cardiovascular Exam: Tachycardia, REGULAR RHYTHM - GI/Abdominal Exam GI & Abdominal Exam: Distended, Hypoactive Bowel Sounds - Rectal Exam Rectal Exam: Deferred - Extremities Exam Extremities exam: Positive for: pedal edema - Back Exam Back exam: NORMAL INSPECTION - Neurological Exam Neurological exam: Alert, Oriented x3 - Psychiatric Exam Psychiatric exam: Anxious - Skin Skin Exam: Pallor Results - Vital Signs Recent Vital Signs: Last Vital Signs Temp 97.4 F L 06/24/17 08:26 Pulse 98 H 06/24/17 12:00 Resp 20 06/24/17 08:26 BP 100/65 06/24/17 08:26 Pulse Ox 97 06/24/17 08:26 - Labs Result Diagrams: 06/24/17 05:56 06/24/17 05:56 Labs: Laboratory Results - last 24 hr 06/23/17 06/24/17 06/24/17 15:27 05:56 05:56 WBC 0.7 L* RBC 2.93 L Hgb 8.8 L Hct 26.7 L MCV 91.2 MCH 30.2 MCHC 33.1 RDW 17.5 H Plt Count 24 L* D MPV 9.5 Neut % (Auto) 9.4 L Lymph % (Auto) 80.4 H [place] % (Auto) 6.0 Eos % (Auto) 3.3 Baso % (Auto) 0.9 Neut # 0.1 L Lymph # 0.5 L [place] # 0.0 Eos # 0.0 Baso # 0.0 Total Counted Cancelled Neutrophils % (Manual) Cancelled Band Neutrophils % Cancelled Lymphocytes % (Manual) Cancelled Reactive Lymphs % Cancelled Monocytes % (Manual) Cancelled Eosinophils % (Manual) Cancelled Basophils % (Manual) Cancelled Metamyelocytes % Cancelled Myelocytes % Cancelled Promyelocytes % Cancelled Blast Cells % Cancelled Plasma Cell % (Manual) Cancelled Nucleated RBC % Cancelled Hypersegmented Polys Cancelled Smudge Cells Cancelled Toxic Granulation Cancelled Dohle Bodies Cancelled Renee Rods Cancelled Platelet Estimate Cancelled Plt Clumps, EDTA Cancelled Large Platelets Cancelled Giant Platelets Cancelled RBC Morphology Cancelled Polychromasia Cancelled Hypochromasia (manual) Cancelled Poikilocytosis (manual Cancelled Basophilic Stippling Cancelled Anisocytosis (manual) Cancelled Microcytosis (manual) Cancelled Macrocytosis (manual) Cancelled Spherocytes Cancelled Sickle Cells Cancelled Target Cells Cancelled Tear Drop Cells Cancelled Ovalocytes Cancelled Stomatocytes Cancelled Helmet Cells Cancelled Gill-[place] Bodies Cancelled Rock Cells Cancelled Acanthocytes (Spur) Cancelled Rouleaux Cancelled Schistocytes Cancelled PT 64.6 H* D INR 5.4 D Sodium Potassium Chloride Carbon Dioxide Anion Gap BUN Creatinine Est GFR ( Amer) Est GFR (Non-Af Amer) Random Glucose Calcium Total Bilirubin AST ALT Alkaline Phosphatase Total Protein Albumin Globulin Albumin/Globulin Ratio Stool Occult Blood Positive H 06/24/17 05:56 WBC RBC Hgb Hct MCV MCH MCHC RDW Plt Count MPV Neut % (Auto) Lymph % (Auto) [place] % (Auto) Eos % (Auto) Baso % (Auto) Neut # Lymph # [place] # Eos # Baso # Total Counted Neutrophils % (Manual) Band Neutrophils % Lymphocytes % (Manual) Reactive Lymphs % Monocytes % (Manual) Eosinophils % (Manual) Basophils % (Manual) Metamyelocytes % Myelocytes % Promyelocytes % Blast Cells % Plasma Cell % (Manual) Nucleated RBC % Hypersegmented Polys Smudge Cells Toxic Granulation Dohle Bodies Renee Rods Platelet Estimate Plt Clumps, EDTA Large Platelets Giant Platelets RBC Morphology Polychromasia Hypochromasia (manual) Poikilocytosis (manual Basophilic Stippling Anisocytosis (manual) Microcytosis (manual) Macrocytosis (manual) Spherocytes Sickle Cells Target Cells Tear Drop Cells Ovalocytes Stomatocytes Helmet Cells Gill-[place] Bodies Rock Cells Acanthocytes (Spur) Rouleaux Schistocytes PT INR Sodium 130 L Potassium 4.3 Chloride 103 Carbon Dioxide 16 L Anion Gap 15 BUN 40 H Creatinine 1.9 H Est GFR ( Amer) 33 Est GFR (Non-Af Amer) 27 Random Glucose 74 Calcium 7.1 L Total Bilirubin 3.1 H AST 84 H ALT 64 H Alkaline Phosphatase 263 H Total Protein 4.3 L Albumin 1.8 L Globulin 2.5 Albumin/Globulin Ratio 0.7 L Stool Occult Blood Assessment & Plan - Assessment and Plan (Free Text) Assessment: Palliative consult Code status was a Full Code prior to the exam,no advance directive on the chart , PPS 20% I reviewed medical records, all diagnostic studies, examined and interviewed patient in the bed. Patient is alert, oriented X 3 in acute distress. Patient looks very uncomfortable. She was just given a suppository for constipation. Skin is pale. There is a open sore to upper lip. Breath sounds are diminished. Abdomen is distended and firm. No BM X few days now. Very poor PO intake.There is edema to lower extremities. Patient complains of abdominal pain of 8/10 at rest. Rest is described as a dull and constantly present, often very pressure like pain. Morphine 2 mg IV Q 4 hr is not helping enough. Patient wishes she was more comfortable. BP 100/65, HR 98, O2 Sat 98 % RA. WBC 0.7, Hb 8.8, Plt 24, Total Aly kahn elevated, albumin level low. Goals of care discussed. Patient is aware of her diagnosis and does not wish to continue chemo Tx. Patient has an experience with her father who from pancreatic cancer as well, under the hospice care. Patient is re experiencing her father's pain . Patient is concerned how her daughter would deal with the whole situation. Patient voiced her concerns regarding her pain and comfort level. few times she repeated " I just want to peacefully". I reassured patient that she has been taken care of and that I would speak to primary MD about increasing the pain meds. Further, I offered more information regarding the hospice, as patient jorge alberto concern about further chemo Tx. Patient tought about it for a moment and asked me to come back tomorrow and revisit the same topic. Patient was very clear requesting that no heroic or extraordinary measures were taken to support her life. She was knowledgeable regarding the meaning of DNR/ DNI and requested to sign form addressing the code status. I reviewed the POLST form with patient and she chose DNR/DNI. This was shared with charge nurse. Impression * This is a very unfortunate young woman with metastatic cancer * Patient is fully aware of severity of her condition and requested peaceful * Cancer related pain not well controlled by the current Morphine order * Patient values comfort over longevity * Patient wishes to discuss hospice care once her symptoms are better controlled * Poor PO intake Suggestion * Patient needs more agressive pain management with long acting opioids * Would consider Fentanyl patch 25 mcg/hr in adittion to Morphine PRN * Patient would benefit from hospice care * DNR/DNI * POLST on chart I will fallow up with patient while at hospital and support her during this very dificult time for her. Thank you for consulting palliative care
[2017-06-24] MEDS ORDERED: Phytonadione 10 mg/ml Inj (Adult) SC STA (18:33)
--- NOTE | 2017-06-24 23:09 | CP.PCM.PN ---
Subjective - Date & Time of Evaluation Date of Evaluation: 06/24/17 Time of Evaluation: 11:26 - Subjective Subjective: SHE IS VERY SICK, SHE IS WEAK, LOW WBC, SHE HAS ABDOMINAL PAIN, NO SOB Objective - Vital Signs/Intake and Output Vital Signs (last 24 hours): Temp Pulse Resp BP Pulse Ox 98.2 F 96 H 18 86/58 L 96 06/24/17 15:55 06/24/17 15:55 06/24/17 15:55 06/24/17 15:55 06/24/17 15:55 Intake and Output: 06/24/17 06/25/17 18:59 06:59 Intake Total 1320 Balance 1320 - Medications Medications: Current Medications Acetaminophen (Tylenol 325mg Tab) 650 mg PO Q6 PRN PRN Reason: Pain, moderate (4-7) Last Admin: 06/24/17 19:44 Dose: 650 mg Bisacodyl (Dulcolax) 10 mg [place] DAILY [facility] Stop: 06/28/17 10:01 Last Admin: 06/24/17 11:38 Dose: 10 mg Docusate Sodium (Colace) 100 mg PO TID [facility] Last Admin: 06/24/17 18:56 Dose: 100 mg Piperacillin Sod/Tazobactam Sod (Zosyn 3.375 Gm Iv Premix) 3.375 gm in 50 mls @ 100 mls/hr IVPB Q8H [facility] Last Admin: 06/24/17 16:59 Dose: 100 mls/hr Vancomycin HCl 1 gm/ Sodium (Chloride) 250 mls @ 166.7 mls/hr IVPB Q24H [facility] Last Admin: 06/24/17 10:38 Dose: 166.7 mls/hr Lactulose (Enulose) 20 gm PO HS [facility] Last Admin: 06/24/17 21:01 Dose: Not Given Morphine Sulfate (Morphine) 2 mg IVP Q4 PRN PRN Reason: Pain, moderate (4-7) Last Admin: 06/23/17 23:00 Dose: 2 mg Nystatin (Nystatin Oral Susp) 5 ml PO QID [facility] Last Admin: 06/24/17 21:01 Dose: Not Given Ondansetron HCl (Zofran Inj) 4 mg IVP Q4 PRN PRN Reason: Nausea/Vomiting Last Admin: 06/23/17 17:35 Dose: 4 mg Oxycodone HCl (Oxycontin Extended Release Tab) 20 mg PO Q12 [facility] Last Admin: 06/24/17 21:02 Dose: Not Given Pantoprazole Sodium (Protonix Inj) 40 mg IVP DAILY [facility] Last Admin: 06/24/17 10:50 Dose: 40 mg Polyethylene Glycol (Miralax) 17 gm PO DAILY [facility] Last Admin: 06/24/17 10:41 Dose: 17 gm Saliva Substitute (First Magic Mouthwash) 5 ml PO Q4 [facility] Last Admin: 06/24/17 19:44 Dose: 5 ml Vitamin A (Vitamin A & D Oint Ud Foilpak) 0.5 ea TOP Q4 PRN PRN Reason: dry lips Last Admin: 06/24/17 19:44 Dose: 0.5 ea - Labs Labs: 06/24/17 05:56 06/24/17 05:56 PT 64.6 SECONDS (9.7-12.2) H* D 06/24/17 05:56 INR 5.4 D 06/24/17 05:56 APTT 39 SECONDS (21-34) H D 06/21/17 07:12 - Constitutional Appears: In Acute Distress, Chronically Ill - Head Exam Head Exam: ATRAUMATIC, NORMAL INSPECTION, NORMOCEPHALIC - Eye Exam Eye Exam: EOMI, Normal appearance, PERRL Pupil Exam: NORMAL ACCOMODATION - ENT Exam ENT Exam: Mucous Membranes Moist, Normal Exam, Normal Oropharynx, TM's Normal Bilaterally - Neck Exam Neck Exam: Normal Inspection - Respiratory Exam Respiratory Exam: Clear to Ausculation Bilateral, NORMAL BREATHING PATTERN - Cardiovascular Exam Cardiovascular Exam: REGULAR RHYTHM, +S1, +S2 - GI/Abdominal Exam GI & Abdominal Exam: Distended, Mass, Normal Bowel Sounds - Extremities Exam Extremities Exam: Normal Capillary Refill, Normal Inspection, Pedal Edema - Neurological Exam Neurological Exam: Abnormal Gait, Alert, Awake, CN II-XII Intact Neuro motor strength exam: Left Upper Extremity: 5, Right Upper Extremity: 5, Left Lower Extremity: 5, Right Lower Extremity: 5 Assessment and Plan (1) Coagulopathy Assessment & Plan: VIT K, NO DVT PROPHYLAXIS Status: Resolved (2) History of deep vein thrombosis (DVT) of lower extremity Status: Chronic (3) Pancreatic cancer Assessment & Plan: S/P CHEMO Status: Chronic (4) Pulmonary emboli Status: Chronic (5) UTI (urinary tract infection) Status: Acute
[2017-06-25] MEDS: Piperacill/Tazo 3.375gm in Dex 3.375 GM/50 ML BAG IVPB SCH ×2 (00:26→07:30)
[2017-06-25] MEDS: Sodium Chloride 0.9% 1,000 ML IV SCH (00:28)
[2017-06-25] MEDS: Mag&Al/Simet/Diphen/Lido 237 ML KIT PO SCH ×6 (00:29→20:36)
[2017-06-25 06:34] LABS: BASO % 0.7 % (0.0-2.0); EOS % 2.7 % (0.0-4.0); HEMATOCRIT 27.6 % (34.0-47.0); LYMPH # 0.7 K/uL (1.0-4.3); MEAN CELL VOLUME 91.7 fL (81.0-99.0); MEAN CORPUSCULAR HGB CONC 32.7 g/dL (33.0-37.0); MEAN PLATELET VOLUME 9.7 fL (7.2-11.7); MONO # 0.1 K/uL (0.0-0.8); MONO % 9.1 % (0.0-10.0); NRBC % 0.3 % (0.0-2.0); RED CELL DISTRIBUTION WIDTH 17.8 % (11.5-14.5)
[2017-06-25 07:07] LABS: POTASSIUM 4.2 mmol/L (3.6-5.2)
[2017-06-25 07:10] LABS: ALB/GLOB RATIO 0.7 (1.0-2.1); BILIRUBIN,DIRECT 2.5 mg/dL (0.0-0.4); CALCIUM 7.2 mg/dl (8.6-10.4); TOTAL PROTEIN 4.3 g/dL (6.3-8.3)
--- NOTE | 2017-06-25 08:31 | CP.PCM.PN ---
Subjective - Date & Time of Evaluation Date of Evaluation: 06/24/17 Time of Evaluation: 19:00 - Subjective Subjective: Barely able to tolerate much PO due to pain Objective - Vital Signs/Intake and Output Vital Signs (last 24 hours): Temp Pulse Resp BP Pulse Ox 98.7 F 108 H 20 99/68 L 96 06/25/17 07:00 06/25/17 07:00 06/25/17 07:00 06/25/17 07:00 06/25/17 07:00 Intake and Output: 06/25/17 06/25/17 06:59 18:59 Intake Total 2750 Balance 2750 - Medications Medications: Current Medications Acetaminophen (Tylenol 325mg Tab) 650 mg PO Q6 PRN PRN Reason: Pain, moderate (4-7) Last Admin: 06/25/17 02:20 Dose: 650 mg Bisacodyl (Dulcolax) 10 mg [place] DAILY [facility] Stop: 06/28/17 10:01 Last Admin: 06/24/17 11:38 Dose: 10 mg Docusate Sodium (Colace) 100 mg PO TID [facility] Last Admin: 06/24/17 18:56 Dose: 100 mg Piperacillin Sod/Tazobactam Sod (Zosyn 3.375 Gm Iv Premix) 3.375 gm in 50 mls @ 100 mls/hr IVPB Q8H [facility] Last Admin: 06/25/17 00:26 Dose: 100 mls/hr Vancomycin HCl 1 gm/ Sodium (Chloride) 250 mls @ 166.7 mls/hr IVPB Q24H [facility] Last Admin: 06/24/17 10:38 Dose: 166.7 mls/hr Lactulose (Enulose) 20 gm PO HS [facility] Last Admin: 06/24/17 21:01 Dose: Not Given Morphine Sulfate (Morphine) 2 mg IVP Q4 PRN PRN Reason: Pain, moderate (4-7) Last Admin: 06/25/17 04:08 Dose: 2 mg Nystatin (Nystatin Oral Susp) 5 ml PO QID [facility] Last Admin: 06/24/17 21:01 Dose: Not Given Ondansetron HCl (Zofran Inj) 4 mg IVP Q4 PRN PRN Reason: Nausea/Vomiting Last Admin: 06/23/17 17:35 Dose: 4 mg Oxycodone HCl (Oxycontin Extended Release Tab) 20 mg PO Q12 [facility] Last Admin: 06/24/17 21:02 Dose: Not Given Pantoprazole Sodium (Protonix Inj) 40 mg IVP DAILY [facility] Last Admin: 06/24/17 10:50 Dose: 40 mg Polyethylene Glycol (Miralax) 17 gm PO DAILY [facility] Last Admin: 06/24/17 10:41 Dose: 17 gm Saliva Substitute (First Magic Mouthwash) 5 ml PO Q4 [facility] Last Admin: 06/25/17 04:09 Dose: 5 ml Vitamin A (Vitamin A & D Oint Ud Foilpak) 0.5 ea TOP Q4 PRN PRN Reason: dry lips Last Admin: 06/24/17 19:44 Dose: 0.5 ea - Labs Labs: 06/25/17 06:07 06/25/17 06:07 PT 64.6 SECONDS (9.7-12.2) H* D 06/24/17 05:56 INR 5.4 D 06/24/17 05:56 APTT 39 SECONDS (21-34) H D 06/21/17 07:12 - Head Exam Head Exam: ATRAUMATIC - Eye Exam Eye Exam: Normal appearance - ENT Exam ENT Exam: Mucous Membranes Dry - Respiratory Exam Respiratory Exam: NORMAL BREATHING PATTERN - Cardiovascular Exam Cardiovascular Exam: +S1, +S2 - GI/Abdominal Exam GI & Abdominal Exam: Normal Bowel Sounds - Extremities Exam Extremities Exam: Pedal Edema - Neurological Exam Neurological Exam: Oriented x3 - Psychiatric Exam Psychiatric exam: Anxious - Skin Skin Exam: Warm Assessment and Plan (1) Pancytopenia Assessment & Plan: secondary to chemotherapy Status: Acute (2) Mucositis Assessment & Plan: secondary to chemotherapy on magic mouth wash and pain meds on IV fluids will start parenteral nutrition Status: Acute (3) Coagulopathy Assessment & Plan: nutritional vit K as needed Status: Resolved (4) Pulmonary emboli Assessment & Plan: with DVT has IVC filter anticoagulation held due to bleeding Status: Chronic (5) Pancreatic cancer Assessment & Plan: stage IV with liver metastasis s/p 1 dose of outpatient chemotherapy DNR/DNI Status: Chronic
--- NOTE | 2017-06-25 09:02 | CP.PCM.PN ---
<KimdemetrisraniBunny - Last Filed: 06/25/17 08:59> Subjective - Date & Time of Evaluation Date of Evaluation: 06/25/17 Time of Evaluation: 07:20 - Subjective Subjective: PGY5 GI Fellow Progress Note Patient seen and examined bedside this morning. The patient states she is continuing to have diffuse pain without any improvement since admission. She is unable to tolerate much PO and is only having sips of water at present. No nausea, vomiting. Small BM overnight. 12 system ROS performed and negative except where stated. Objective - Vital Signs/Intake and Output Vital Signs (last 24 hours): Temp Pulse Resp BP Pulse Ox 98.7 F 108 H 20 99/68 L 96 06/25/17 07:00 06/25/17 07:00 06/25/17 07:00 06/25/17 07:00 06/25/17 07:00 Intake and Output: 06/25/17 06/25/17 06:59 18:59 Intake Total 2750 Balance 2750 - Medications Medications: Current Medications Acetaminophen (Tylenol 325mg Tab) 650 mg PO Q6 PRN PRN Reason: Pain, moderate (4-7) Last Admin: 06/25/17 02:20 Dose: 650 mg Bisacodyl (Dulcolax) 10 mg [place] DAILY [facility] Stop: 06/28/17 10:01 Last Admin: 06/24/17 11:38 Dose: 10 mg Docusate Sodium (Colace) 100 mg PO TID [facility] Last Admin: 06/24/17 18:56 Dose: 100 mg Piperacillin Sod/Tazobactam Sod (Zosyn 3.375 Gm Iv Premix) 3.375 gm in 50 mls @ 100 mls/hr IVPB Q8H [facility] Last Admin: 06/25/17 00:26 Dose: 100 mls/hr Vancomycin HCl 1 gm/ Sodium (Chloride) 250 mls @ 166.7 mls/hr IVPB Q24H [facility] Last Admin: 06/24/17 10:38 Dose: 166.7 mls/hr Lactulose (Enulose) 20 gm PO HS [facility] Last Admin: 06/24/17 21:01 Dose: Not Given Morphine Sulfate (Morphine) 2 mg IVP Q4 PRN PRN Reason: Pain, moderate (4-7) Last Admin: 06/25/17 08:38 Dose: 2 mg Nystatin (Nystatin Oral Susp) 5 ml PO QID [facility] Last Admin: 06/24/17 21:01 Dose: Not Given Ondansetron HCl (Zofran Inj) 4 mg IVP Q4 PRN PRN Reason: Nausea/Vomiting Last Admin: 06/23/17 17:35 Dose: 4 mg Oxycodone HCl (Oxycontin Extended Release Tab) 20 mg PO Q12 [facility] Last Admin: 06/24/17 21:02 Dose: Not Given Pantoprazole Sodium (Protonix Inj) 40 mg IVP DAILY [facility] Last Admin: 06/24/17 10:50 Dose: 40 mg Polyethylene Glycol (Miralax) 17 gm PO DAILY [facility] Last Admin: 06/24/17 10:41 Dose: 17 gm Saliva Substitute (First Magic Mouthwash) 5 ml PO Q4 [facility] Last Admin: 06/25/17 04:09 Dose: 5 ml Vitamin A (Vitamin A & D Oint Ud Foilpak) 0.5 ea TOP Q4 PRN PRN Reason: dry lips Last Admin: 06/24/17 19:44 Dose: 0.5 ea - Labs Labs: 06/25/17 06:07 06/25/17 06:07 PT 64.6 SECONDS (9.7-12.2) H* D 06/24/17 05:56 INR 5.4 D 06/24/17 05:56 APTT 39 SECONDS (21-34) H D 06/21/17 07:12 - Constitutional Appears: Chronically Ill - Eye Exam Eye Exam: EOMI, PERRL - ENT Exam ENT Exam: Mucous Membranes Dry Additional comments: dry blood on lips, gums - Respiratory Exam Respiratory Exam: Clear to Ausculation Bilateral. absent: Rales, Rhonchi, Wheezes - Cardiovascular Exam Cardiovascular Exam: Tachycardia, +S1, +S2 - GI/Abdominal Exam GI & Abdominal Exam: Guarding, Soft, Tenderness, Normal Bowel Sounds. absent: Distended, Firm, Rigid, Organomegaly - Extremities Exam Additional comments: B/L LE edema - Neurological Exam Neurological Exam: Alert, Awake, Oriented x3 - Psychiatric Exam Psychiatric exam: Anxious, Depressed - Skin Skin Exam: Dry, Warm Assessment and Plan - Assessment and Plan (Free Text) Assessment: Patient is a 56yo female with PMHx significant for poorly differentiated pancreatic adenocarcinoma with metastatic disease to the liver S/P first round of chemotherapy on 06/20/17, RLE DVT, B/L PE s/p IVF filter on coumadin, HTN, HLD who presented to the ED with hematemesis. -Poorly differentiated pancreatic adenocarcinoma with liver metastases -Hyperbilirubinemia 2/2 above -Mucositis -Pancytopenia 2/2 recent chemotherapy -Supratherapeutic INR on Coumadin - currently held -Recent DVT/PE Plan: -Recommend U/S abdomen with duplex - r/o obstructive pathology -May need palliative ERCP with metal biliary stenting -Pain control - only on Morphine/Oxycodone - consider long acting agent such as Fentanyl patch -Needs continued bowel regimen as ordered -Hold coumadin, monitor INR -Consider IV Vit K supplementation -Continue magic mouthwash, can add viscous lidocaine if continued discomfort -Neutropenic precautions -ANC<500 - will benefit from neupogen - plan per hematology -Pt now DNR/DNI -Reconsidering continuation of chemotherapy and whether or not she would prefer comfort measure route -Follow clinical course <J Carlos Cobos - Last Filed: 06/25/17 09:23> Objective - Vital Signs/Intake and Output Vital Signs (last 24 hours): Temp Pulse Resp BP Pulse Ox 98.7 F 108 H 20 99/68 L 96 06/25/17 07:00 06/25/17 07:00 06/25/17 07:00 06/25/17 07:00 06/25/17 07:00 Intake and Output: 06/25/17 06/25/17 06:59 18:59 Intake Total 2750 Balance 2750 - Medications Medications: Current Medications Acetaminophen (Tylenol 325mg Tab) 650 mg PO Q6 PRN PRN Reason: Pain, moderate (4-7) Last Admin: 06/25/17 02:20 Dose: 650 mg Bisacodyl (Dulcolax) 10 mg [place] DAILY [facility] Stop: 06/28/17 10:01 Last Admin: 06/24/17 11:38 Dose: 10 mg Docusate Sodium (Colace) 100 mg PO TID [facility] Last Admin: 06/24/17 18:56 Dose: 100 mg Piperacillin Sod/Tazobactam Sod (Zosyn 3.375 Gm Iv Premix) 3.375 gm in 50 mls @ 100 mls/hr IVPB Q8H [facility] Last Admin: 06/25/17 00:26 Dose: 100 mls/hr Vancomycin HCl 1 gm/ Sodium (Chloride) 250 mls @ 166.7 mls/hr IVPB Q24H [facility] Last Admin: 06/24/17 10:38 Dose: 166.7 mls/hr Lactulose (Enulose) 20 gm PO HS [facility] Last Admin: 06/24/17 21:01 Dose: Not Given Morphine Sulfate (Morphine) 2 mg IVP Q4 PRN PRN Reason: Pain, moderate (4-7) Last Admin: 06/25/17 08:38 Dose: 2 mg Nystatin (Nystatin Oral Susp) 5 ml PO QID [facility] Last Admin: 06/24/17 21:01 Dose: Not Given Ondansetron HCl (Zofran Inj) 4 mg IVP Q4 PRN PRN Reason: Nausea/Vomiting Last Admin: 06/23/17 17:35 Dose: 4 mg Oxycodone HCl (Oxycontin Extended Release Tab) 20 mg PO Q12 [facility] Last Admin: 06/24/17 21:02 Dose: Not Given Pantoprazole Sodium (Protonix Inj) 40 mg IVP DAILY [facility] Last Admin: 06/24/17 10:50 Dose: 40 mg Polyethylene Glycol (Miralax) 17 gm PO DAILY [facility] Last Admin: 06/24/17 10:41 Dose: 17 gm Saliva Substitute (First Magic Mouthwash) 5 ml PO Q4 [facility] Last Admin: 06/25/17 04:09 Dose: 5 ml Vitamin A (Vitamin A & D Oint Ud Foilpak) 0.5 ea TOP Q4 PRN PRN Reason: dry lips Last Admin: 06/24/17 19:44 Dose: 0.5 ea - Labs Labs: 06/25/17 06:07 06/25/17 06:07 PT 64.6 SECONDS (9.7-12.2) H* D 06/24/17 05:56 INR 5.4 D 06/24/17 05:56 APTT 39 SECONDS (21-34) H D 06/21/17 07:12 Attending/Attestation - Attestation I have personally seen and examined this patient.: Yes I have fully participated in the care of the patient.: Yes I have reviewed all pertinent clinical information, including history, physical exam and plan: Yes Notes (Text): 06/25/17 09:17 I have seen and examined patient with GI fellow. No acute events overnight. She continues to complain of persistent diffuse abdominal pain and oral discomfort. She is extremely limited with PO intake, only tolerating sips of water. She had one bowel movement yesterday and otherwise denies nausea, vomiting, fever/chills. Metastatic pancreatic cancer with liver involvement s/p chemotherapy DVT/PE on coumadin (held, supratherapeutic INR on admission) HTN / Hyperlipidemia Abdominal pain Hematemesis - no recurrent episodes Acute renal infufficiency, likely pre-renal given poor oral intake - H/H stable, continue to monitor - Continue with PPI therapy, IVF hydration - Anti-emetic therapy PRN - LFTs stable, continue to monitor - Continue with neutropenic precautions and broad spectrum antibiotic therapy, follow up oncology recommendations - Pain control - Obtain abdominal US with duplex given pain and hyperbilirubinemia (mainly direct), rule out obstructive pathology (patient willing to have test done today , previously refused over weekend) - Liquid diet as tolerated, continue with oral care for mucositis - Overall patient prognosis is quite poor given end stage disease with new evidence of multi-organ system dysfunction
--- NOTE | 2017-06-25 09:35 | US ---
HISTORY: abdominal pain, elevated LFTs COMPARISON: None available. TECHNIQUE: Sonographic evaluation of the abdomen. FINDINGS: Examination markedly limited due to patient condition. LIVER: Measures 22.5 cm in sagittal dimension. Echogenic liver may be seen in setting of hepatic parenchymal disease or fatty infiltration. Nodular hepatic contour. Hepatic masses evident including 4.3 x 3.5 x 4.3 cm hypoechoic and 3.3 x 3.0 x 3.3 cm heterogeneous mostly hypoechoic lesion in the right hepatic lobe. The main portal vein appears patent with normal directional flow. No intrahepatic bile duct dilatation. Small perihepatic ascites. GALLBLADDER: Gallbladder sludge. No gallstones. Gallbladder wall thickening/ edema measuring up to 6 mm. Negative sonographic Madrigal's sign as assessed by the documentation clerk. COMMON BILE DUCT: Measures 7 mm. PANCREAS: Not well visualized. RIGHT KIDNEY: Measures 13.3 x 7.2 x 7.7cm. No obstructing calculus or hydronephrosis identified. LEFT KIDNEY: Measures 12.7 x 7.1 x 6.4cm. No obstructing calculus or hydronephrosis identified. SPLEEN: Measures approximately 13.4 cm. AORTA: Not well-visualized. IVC: Not well-visualized. OTHER FINDINGS: None. IMPRESSION: Hepatomegaly. Echogenic liver may be seen in setting of hepatic parenchymal disease or fatty infiltration. Mildly nodular hepatic contour. Evidence of hepatic masses including 4.3 cm left hepatic lobe and 3.3 cm right hepatic lobe lesions. Small perihepatic ascites. Gallbladder sludge. Gallbladder wall thickening/pericholecystic edema. Negative sonographic Madrigal's sign as assessed by the documentation clerk. Mild common bile duct dilatation measuring approximately 7 mm. Please note due to technical difficulties, the original dictation was not available. This study is being redictated as a result. Case and findings were discussed with Dr. Jean on 06/26/17 at 10:56 am.
[2017-06-25] MEDS: Nystatin 100,000 Units/ml Oral Susp 5 ml UD PO SCH ×4 (09:47→22:00)
[2017-06-25] MEDS: POLYETHYLENE GLYCOL 3350 17 GM/Dose PACKET PO SCH (10:28)
[2017-06-25] MEDS: oxyCODONE 20 mg ER Tab (oxyCONTIN) PO SCH ×2 (10:28→23:00)
[2017-06-25 13:13] LABS: INR 8.9
[2017-06-25] MEDS: Piperacill/Tazo 2.25gm in Dex 2.25 GM/50 ML BAG IVPB SCH (16:11)
[2017-06-25] MEDS ORDERED: PPN #1 IV SCH (18:00)
--- NOTE | 2017-06-25 22:28 | CP.PCM.PN ---
Subjective - Date & Time of Evaluation Date of Evaluation: 06/25/17 Time of Evaluation: 22:28 - Subjective Subjective: AFEBRILE, WEAK POOR ORAL INTAKE SEVERE MUCOSITIS. C/O ABDDOMINAL PAIN AND DISCOMFORT LAB;wbc 1.0 PLT 16 INR 108.6 +VE FDP CREAT 2.4/BUN 43 VANCO TROUGH RANDOM 14.54 (OK ) LFTS BILI 3.0 INCREASING Objective - Vital Signs/Intake and Output Vital Signs (last 24 hours): Temp Pulse Resp BP Pulse Ox 97.7 F 103 H 20 122/90 94 L 06/25/17 15:16 06/25/17 16:59 06/25/17 15:16 06/25/17 16:59 06/25/17 15:16 Intake and Output: 06/25/17 06/26/17 18:59 06:59 Intake Total 1150 Balance 1150 - Medications Medications: Current Medications Acetaminophen (Tylenol 325mg Tab) 650 mg PO Q6 PRN PRN Reason: Pain, moderate (4-7) Last Admin: 06/25/17 10:03 Dose: 650 mg Bisacodyl (Dulcolax) 10 mg [place] DAILY [facility] Stop: 06/28/17 10:01 Last Admin: 06/25/17 10:25 Dose: Not Given Docusate Sodium (Colace) 100 mg PO TID [facility] Last Admin: 06/25/17 18:54 Dose: Not Given Vancomycin HCl 1 gm/ Sodium (Chloride) 250 mls @ 166.7 mls/hr IVPB Q24H [facility] Last Admin: 06/25/17 12:06 Dose: 166.7 mls/hr Multivitamins/Vitamin C 10 ml/Chromium/Copper/Manganese/Zinc 1 ml/ Amino Acids 1,011 mls @ 65 mls/hr IV .[id number] [facility] Stop: 06/26/17 09:33 Chromium/Copper/Manganese/Zinc (1 ml/ Amino Acids) 1,001 mls @ 65 mls/hr IV .[id number] [facility] Stop: 06/26/17 18:00 Piperacillin Sod/Tazobactam Sod (Zosyn 2.25 Gm Iv Premix) 2.25 gm in 50 mls @ 100 mls/hr IVPB Q8H [facility] Last Admin: 06/25/17 16:11 Dose: 100 mls/hr Lactulose (Enulose) 20 gm PO HS [facility] Last Admin: 06/24/17 21:01 Dose: Not Given Morphine Sulfate (Morphine) 2 mg IVP Q4 PRN PRN Reason: Pain, moderate (4-7) Last Admin: 06/25/17 16:55 Dose: 2 mg Nystatin (Nystatin Oral Susp) 5 ml PO QID [facility] Last Admin: 06/25/17 18:54 Dose: Not Given Ondansetron HCl (Zofran Inj) 4 mg IVP Q4 PRN PRN Reason: Nausea/Vomiting Last Admin: 06/23/17 17:35 Dose: 4 mg Oxycodone HCl (Oxycontin Extended Release Tab) 20 mg PO Q12 [facility] Last Admin: 06/25/17 10:28 Dose: Not Given Pantoprazole Sodium (Protonix Inj) 40 mg IVP DAILY [facility] Last Admin: 06/25/17 09:47 Dose: 40 mg Polyethylene Glycol (Miralax) 17 gm PO DAILY [facility] Last Admin: 06/25/17 10:28 Dose: Not Given Saliva Substitute (First Magic Mouthwash) 5 ml PO Q4 [facility] Last Admin: 06/25/17 20:36 Dose: Not Given Vitamin A (Vitamin A & D Oint Ud Foilpak) 0.5 ea TOP Q4 PRN PRN Reason: dry lips Last Admin: 06/24/17 19:44 Dose: 0.5 ea - Labs Labs: 06/25/17 06:07 06/25/17 06:07 PT 108.6 SECONDS (9.7-12.2) H* D 06/25/17 12:11 INR 8.9 D 06/25/17 12:11 APTT 39 SECONDS (21-34) H D 06/21/17 07:12 - Constitutional Appears: No Acute Distress, Chronically Ill - Eye Exam Eye Exam: PERRL, Scleral icterus - ENT Exam ENT Exam: Mucous Membranes Dry (SEVERE MUCOSITIS ) - Neck Exam Neck Exam: Normal Inspection - Respiratory Exam Respiratory Exam: Decreased Breath Sounds (BASES) - Cardiovascular Exam Cardiovascular Exam: Tachycardia, REGULAR RHYTHM, +S1, +S2 - GI/Abdominal Exam GI & Abdominal Exam: Distended, Tenderness (GENERALIZED), Hypoactive Bowel Sounds - Extremities Exam Extremities Exam: Pedal Edema. absent: Calf Tenderness - Neurological Exam Neurological Exam: Awake, CN II-XII Intact, Oriented x3 - Psychiatric Exam Psychiatric exam: Depressed - Skin Skin Exam: Normal Color, Warm Assessment and Plan (1) Pancytopenia Status: Acute (2) Mucositis Status: Acute (3) Abdominal pain Status: Acute (4) Gastrointestinal hemorrhage Status: Acute (5) Anemia Status: Acute (6) Liver lesion Status: Acute (7) Lung nodules Status: Acute (8) CASSIE (acute kidney injury) Status: Chronic (9) Pancreatic carcinoma metastatic to liver Status: Acute - Assessment and Plan (Free Text) Plan: CONTINUE iv zOSYN 2.25 G EVERY 8 HOURLY .06/21/17 DEC BY [employer] CONTINUE iv VANCOMYCIN 1 G EVERY 24 HOURLY 06/23/17. F/U VANCO TROUGH LEVEL IN A.M. AND NOTIFY ME MONITOR RENAL FUNCTIONS CLOSELY MONITOR LFTS . NEUTROPENIC PRECAUTIONS. CONTINUE mAGIC MOUTHWASH WITH LIDOCAINE PER gi ADD NYSTATIN 5 Ml SWISH AND SWALLOW 3 TIMES A DAY. MRSA SCREENING. PT ON GRANIX nEUPOGEN PER HEME/ ONC. PROGNOSIS GUARDED.
--- NOTE | 2017-06-25 23:18 | CP.PCM.PN ---
Subjective - Date & Time of Evaluation Date of Evaluation: 06/25/17 Time of Evaluation: 10:14 - Subjective Subjective: SHE IS SICK, DNR A,D DNI, ABDOMINAL PAIN AND LOW BP AT TIMES, NO SOB Objective - Vital Signs/Intake and Output Vital Signs (last 24 hours): Temp Pulse Resp BP Pulse Ox 97.7 F 103 H 20 122/90 94 L 06/25/17 15:16 06/25/17 16:59 06/25/17 15:16 06/25/17 16:59 06/25/17 15:16 Intake and Output: 06/25/17 06/26/17 18:59 06:59 Intake Total 1150 Balance 1150 - Medications Medications: Current Medications Acetaminophen (Tylenol 325mg Tab) 650 mg PO Q6 PRN PRN Reason: Pain, moderate (4-7) Last Admin: 06/25/17 10:03 Dose: 650 mg Bisacodyl (Dulcolax) 10 mg [place] DAILY [facility] Stop: 06/28/17 10:01 Last Admin: 06/25/17 10:25 Dose: Not Given Docusate Sodium (Colace) 100 mg PO TID [facility] Last Admin: 06/25/17 18:54 Dose: Not Given Vancomycin HCl 1 gm/ Sodium (Chloride) 250 mls @ 166.7 mls/hr IVPB Q24H [facility] Last Admin: 06/25/17 12:06 Dose: 166.7 mls/hr Multivitamins/Vitamin C 10 ml/Chromium/Copper/Manganese/Zinc 1 ml/ Amino Acids 1,011 mls @ 65 mls/hr IV .[id number] [facility] Stop: 06/26/17 09:33 Chromium/Copper/Manganese/Zinc (1 ml/ Amino Acids) 1,001 mls @ 65 mls/hr IV .[id number] [facility] Stop: 06/26/17 18:00 Piperacillin Sod/Tazobactam Sod (Zosyn 2.25 Gm Iv Premix) 2.25 gm in 50 mls @ 100 mls/hr IVPB Q8H [facility] Last Admin: 06/25/17 16:11 Dose: 100 mls/hr Lactulose (Enulose) 20 gm PO HS [facility] Last Admin: 06/24/17 21:01 Dose: Not Given Morphine Sulfate (Morphine) 2 mg IVP Q4 PRN PRN Reason: Pain, moderate (4-7) Last Admin: 06/25/17 16:55 Dose: 2 mg Nystatin (Nystatin Oral Susp) 5 ml PO QID [facility] Last Admin: 06/25/17 18:54 Dose: Not Given Ondansetron HCl (Zofran Inj) 4 mg IVP Q4 PRN PRN Reason: Nausea/Vomiting Last Admin: 06/23/17 17:35 Dose: 4 mg Oxycodone HCl (Oxycontin Extended Release Tab) 20 mg PO Q12 [facility] Last Admin: 06/25/17 10:28 Dose: Not Given Pantoprazole Sodium (Protonix Inj) 40 mg IVP DAILY [facility] Last Admin: 06/25/17 09:47 Dose: 40 mg Polyethylene Glycol (Miralax) 17 gm PO DAILY [facility] Last Admin: 06/25/17 10:28 Dose: Not Given Saliva Substitute (First Magic Mouthwash) 5 ml PO Q4 [facility] Last Admin: 06/25/17 20:36 Dose: Not Given Vitamin A (Vitamin A & D Oint Ud Foilpak) 0.5 ea TOP Q4 PRN PRN Reason: dry lips Last Admin: 06/24/17 19:44 Dose: 0.5 ea - Labs Labs: 06/25/17 06:07 06/25/17 06:07 PT 108.6 SECONDS (9.7-12.2) H* D 06/25/17 12:11 INR 8.9 D 06/25/17 12:11 APTT 39 SECONDS (21-34) H D 06/21/17 07:12 - Constitutional Appears: Non-toxic, In Acute Distress, Chronically Ill - Head Exam Head Exam: ATRAUMATIC, NORMAL INSPECTION, NORMOCEPHALIC - Eye Exam Eye Exam: EOMI, Normal appearance Pupil Exam: NORMAL ACCOMODATION - ENT Exam ENT Exam: Mucous Membranes Moist, Normal Exam - Neck Exam Neck Exam: Normal Inspection - Respiratory Exam Respiratory Exam: Clear to Ausculation Bilateral, NORMAL BREATHING PATTERN - Cardiovascular Exam Cardiovascular Exam: Tachycardia, REGULAR RHYTHM, +S1, +S2 - GI/Abdominal Exam GI & Abdominal Exam: Distended, Soft, Mass, Normal Bowel Sounds - Rectal Exam Rectal Exam: NORMAL INSPECTION - Extremities Exam Extremities Exam: Full ROM, Normal Capillary Refill, Pedal Edema - Neurological Exam Neurological Exam: Abnormal Gait, Alert, Awake, CN II-XII Intact Assessment and Plan (1) Coagulopathy Status: Resolved (2) History of deep vein thrombosis (DVT) of lower extremity Status: Chronic (3) Pancreatic cancer Status: Chronic (4) Pulmonary emboli Status: Chronic (5) UTI (urinary tract infection) Status: Acute
[2017-06-26] MEDS: Piperacill/Tazo 2.25gm in Dex 2.25 GM/50 ML BAG IVPB SCH ×3 (00:39→16:31)
--- NOTE | 2017-06-26 01:36 | CP.PCM.PN ---
Subjective - Date & Time of Evaluation Date of Evaluation: 06/25/17 Time of Evaluation: 16:30 - Subjective Subjective: Continues to have pain with PO intake, weak Objective - Vital Signs/Intake and Output Vital Signs (last 24 hours): Temp Pulse Resp BP Pulse Ox 98.3 F 110 H 20 93/61 L 94 L 06/26/17 01:31 06/26/17 01:31 06/26/17 01:31 06/26/17 01:31 06/25/17 15:16 Intake and Output: 06/25/17 06/26/17 18:59 06:59 Intake Total 1150 0 Balance 1150 0 - Medications Medications: Current Medications Acetaminophen (Tylenol 325mg Tab) 650 mg PO Q6 PRN PRN Reason: Pain, moderate (4-7) Last Admin: 06/25/17 10:03 Dose: 650 mg Bisacodyl (Dulcolax) 10 mg [place] DAILY [facility] Stop: 06/28/17 10:01 Last Admin: 06/25/17 10:25 Dose: Not Given Docusate Sodium (Colace) 100 mg PO TID [facility] Last Admin: 06/25/17 18:54 Dose: Not Given Vancomycin HCl 1 gm/ Sodium (Chloride) 250 mls @ 166.7 mls/hr IVPB Q24H [facility] Last Admin: 06/25/17 12:06 Dose: 166.7 mls/hr Multivitamins/Vitamin C 10 ml/Chromium/Copper/Manganese/Zinc 1 ml/ Amino Acids 1,011 mls @ 65 mls/hr IV .[id number] [facility] Stop: 06/26/17 09:33 Chromium/Copper/Manganese/Zinc (1 ml/ Amino Acids) 1,001 mls @ 65 mls/hr IV .[id number] [facility] Stop: 06/26/17 18:00 Piperacillin Sod/Tazobactam Sod (Zosyn 2.25 Gm Iv Premix) 2.25 gm in 50 mls @ 100 mls/hr IVPB Q8H [facility] Last Admin: 06/26/17 00:39 Dose: 100 mls/hr Lactulose (Enulose) 20 gm PO HS [facility] Last Admin: 06/24/17 21:01 Dose: Not Given Morphine Sulfate (Morphine) 2 mg IVP Q4 PRN PRN Reason: Pain, moderate (4-7) Last Admin: 06/25/17 16:55 Dose: 2 mg Nystatin (Nystatin Oral Susp) 5 ml PO QID [facility] Last Admin: 06/25/17 18:54 Dose: Not Given Ondansetron HCl (Zofran Inj) 4 mg IVP Q4 PRN PRN Reason: Nausea/Vomiting Last Admin: 06/23/17 17:35 Dose: 4 mg Oxycodone HCl (Oxycontin Extended Release Tab) 20 mg PO Q12 [facility] Last Admin: 06/25/17 10:28 Dose: Not Given Pantoprazole Sodium (Protonix Inj) 40 mg IVP DAILY [facility] Last Admin: 06/25/17 09:47 Dose: 40 mg Polyethylene Glycol (Miralax) 17 gm PO DAILY [facility] Last Admin: 06/25/17 10:28 Dose: Not Given Saliva Substitute (First Magic Mouthwash) 5 ml PO Q4 [facility] Last Admin: 06/25/17 20:36 Dose: Not Given Vitamin A (Vitamin A & D Oint Ud Foilpak) 0.5 ea TOP Q4 PRN PRN Reason: dry lips Last Admin: 06/24/17 19:44 Dose: 0.5 ea - Labs Labs: 06/25/17 06:07 06/25/17 06:07 PT 108.6 SECONDS (9.7-12.2) H* D 06/25/17 12:11 INR 8.9 D 06/25/17 12:11 APTT 39 SECONDS (21-34) H D 06/21/17 07:12 - Head Exam Head Exam: ATRAUMATIC - Eye Exam Eye Exam: Normal appearance - ENT Exam ENT Exam: Mucous Membranes Dry - Cardiovascular Exam Cardiovascular Exam: +S1, +S2 - GI/Abdominal Exam GI & Abdominal Exam: Normal Bowel Sounds - Extremities Exam Extremities Exam: Pedal Edema Assessment and Plan (1) Pancytopenia Assessment & Plan: secondary to chemotherapy on Granix with improving WBC H/H fairly stable will transfuse 1 bag plt today Status: Acute (2) Mucositis Assessment & Plan: inability to tolerate PO will start parenteral nutrition magic mouth wash IV pain meds IV fluids Status: Acute (3) Coagulopathy Assessment & Plan: nutritional s/p vit k will give 2U FFP today fibrinogen stable, no current DIC Status: Resolved (4) Pulmonary emboli Assessment & Plan: with DVT has IVC filter anticoagulation on hold due thrombocytopenia and prior bleeding. Status: Chronic (5) Pancreatic cancer Assessment & Plan: stage IV liver metastasis s/p chemotherapy GI following for elevated dbili DNR/DNI Status: Chronic
[2017-06-26] MEDS: Mag&Al/Simet/Diphen/Lido 237 ML KIT PO SCH ×5 (01:48→16:36)
[2017-06-26 07:33] LABS: MEAN CELL VOLUME 92.8 fL (81.0-99.0); MEAN CORPUSCULAR HEMOGLOBIN 29.9 pg (27.0-31.0); MEAN CORPUSCULAR HGB CONC 32.2 g/dL (33.0-37.0); MEAN PLATELET VOLUME 9.2 fL (7.2-11.7); RED CELL DISTRIBUTION WIDTH 17.7 % (11.5-14.5)
[2017-06-26 07:49] LABS: POTASSIUM 4.5 mmol/L (3.6-5.2)
[2017-06-26 07:50] LABS: PLATELET COUNT 41 K/uL (130-400); WHITE BLOOD COUNT 1.7 K/uL (4.8-10.8)
[2017-06-26 07:51] LABS: ALB/GLOB RATIO 0.8 (1.0-2.1); BILIRUBIN,DIRECT 2.5 mg/dL (0.0-0.4); TOTAL PROTEIN 4.8 g/dL (6.3-8.3)
[2017-06-26 07:52] LABS: CALCIUM 7.7 mg/dl (8.6-10.4)
[2017-06-26] MEDS ORDERED: PPN #2 IV SCH (09:30)
[2017-06-26] MEDS: oxyCODONE 20 mg ER Tab (oxyCONTIN) PO SCH (10:35)
[2017-06-26] MEDS: Nystatin 100,000 Units/ml Oral Susp 5 ml UD PO SCH ×2 (10:36→13:43)
[2017-06-26] MEDS: POLYETHYLENE GLYCOL 3350 17 GM/Dose PACKET PO SCH (10:37)
--- NOTE | 2017-06-26 10:56 | CP.PCM.PN ---
Subjective - Date & Time of Evaluation Date of Evaluation: 06/26/17 Time of Evaluation: 10:51 - Subjective Subjective: RFV: Pancreatic cancer S: Patient continues to be in severe pain. Currently complaining of severe oral pain requesting pain medications. Also with abdominal discomfort and tenderness. Objective - Vital Signs/Intake and Output Vital Signs (last 24 hours): Temp Pulse Resp BP Pulse Ox 97.8 F 110 H 18 96/61 L 96 06/26/17 07:50 06/26/17 07:50 06/26/17 07:50 06/26/17 07:50 06/26/17 07:50 Intake and Output: 06/26/17 06/26/17 06:59 18:59 Intake Total 1550 691 Balance 1550 691 - Medications Medications: Current Medications Acetaminophen (Tylenol 325mg Tab) 650 mg PO Q6 PRN PRN Reason: Pain, moderate (4-7) Last Admin: 06/25/17 10:03 Dose: 650 mg Bisacodyl (Dulcolax) 10 mg [place] DAILY [facility] Stop: 06/28/17 10:01 Last Admin: 06/26/17 10:37 Dose: Not Given Docusate Sodium (Colace) 100 mg PO TID [facility] Last Admin: 06/26/17 10:37 Dose: Not Given Vancomycin HCl 1 gm/ Sodium (Chloride) 250 mls @ 166.7 mls/hr IVPB Q24H [facility] Last Admin: 06/25/17 12:06 Dose: 166.7 mls/hr Chromium/Copper/Manganese/Zinc (1 ml/ Amino Acids) 1,001 mls @ 65 mls/hr IV .[id number] [facility] Stop: 06/26/17 18:00 Last Admin: 06/26/17 10:48 Dose: 65 mls/hr Piperacillin Sod/Tazobactam Sod (Zosyn 2.25 Gm Iv Premix) 2.25 gm in 50 mls @ 100 mls/hr IVPB Q8H [facility] Last Admin: 06/26/17 08:46 Dose: 100 mls/hr Lactulose (Enulose) 20 gm PO HS [facility] Last Admin: 06/25/17 22:00 Dose: Not Given Morphine Sulfate (Morphine) 2 mg IVP Q4 PRN PRN Reason: Pain, moderate (4-7) Last Admin: 06/25/17 21:00 Dose: 2 mg Nystatin (Nystatin Oral Susp) 5 ml PO QID [facility] Last Admin: 06/26/17 10:36 Dose: Not Given Ondansetron HCl (Zofran Inj) 4 mg IVP Q4 PRN PRN Reason: Nausea/Vomiting Last Admin: 06/23/17 17:35 Dose: 4 mg Oxycodone HCl (Oxycontin Extended Release Tab) 20 mg PO Q12 [facility] Last Admin: 06/26/17 10:35 Dose: 20 mg Pantoprazole Sodium (Protonix Inj) 40 mg IVP DAILY [facility] Last Admin: 06/26/17 10:35 Dose: 40 mg Polyethylene Glycol (Miralax) 17 gm PO DAILY [facility] Last Admin: 06/26/17 10:37 Dose: Not Given Saliva Substitute (First Magic Mouthwash) 5 ml PO Q4 [facility] Last Admin: 06/26/17 10:37 Dose: Not Given Vitamin A (Vitamin A & D Oint Ud Foilpak) 0.5 ea TOP Q4 PRN PRN Reason: dry lips Last Admin: 06/24/17 19:44 Dose: 0.5 ea - Labs Labs: 06/26/17 07:08 06/26/17 07:08 PT 108.6 SECONDS (9.7-12.2) H* D 06/25/17 12:11 INR 8.9 D 06/25/17 12:11 APTT 64 SECONDS (21-34) H 06/26/17 07:08 - Constitutional Appears: Chronically Ill - Head Exam Head Exam: ATRAUMATIC, NORMOCEPHALIC - Eye Exam Eye Exam: PERRL, Scleral icterus - ENT Exam ENT Exam: Mucous Membranes Dry - Respiratory Exam Respiratory Exam: NORMAL BREATHING PATTERN - Cardiovascular Exam Cardiovascular Exam: +S1, +S2 - GI/Abdominal Exam GI & Abdominal Exam: Distended, Soft, Tenderness - Extremities Exam Extremities Exam: Normal Capillary Refill, Pedal Edema - Neurological Exam Neurological Exam: Alert, Awake, Oriented x3 - Psychiatric Exam Psychiatric exam: Normal Affect, Normal Mood - Skin Skin Exam: Dry, Warm Assessment and Plan - Assessment and Plan (Free Text) Assessment: 56 year old female wit h/o metastatic pancreatic adenocarcinoma with liver metastases, dvt/pe on anticoagulation admitted with hematemesis, pancytopenia, mucositis, elevated lfts. 1. Pancreatic adenocarcinoma 2. Liver metastases 3. Elevated LFTs 4. Abdominal pain Plan: -supportive care for now -pain control, hydration -neutropenic protocol / treatment per Heme onc -recommend CT abdomen/pelvis to eval for malignant biliary obstruction -may need palliative ERCP with stent -may also benefit from celiac plexus neuroloysis by EUS -currently procedures contraindicated due to neutropenia, coagulopathy, thrombocytopenia
[2017-06-26 12:38] LABS: LYMPH # 0.7 K/uL (1.0-4.3); MONO # 0.4 K/uL (0.0-0.8)
[2017-06-26 12:39] LABS: MYELOCYTE 2 % (0-0); NEUTROPHIL 29 % (50-75); NUCLEATED RED BLOOD CELL 8 % (0-0); TOTAL CELLS COUNTED 100
[2017-06-26 12:41] LABS: LARGE PLATELETS PRESENT
--- NOTE | 2017-06-26 13:08 | CP.PCM.PN ---
Subjective - Date & Time of Evaluation Date of Evaluation: 06/26/17 Time of Evaluation: 11:45 - Subjective Subjective: More lethargic but arousable Objective - Vital Signs/Intake and Output Vital Signs (last 24 hours): Temp Pulse Resp BP Pulse Ox 97.8 F 110 H 18 96/61 L 96 06/26/17 07:50 06/26/17 07:50 06/26/17 07:50 06/26/17 07:50 06/26/17 07:50 Intake and Output: 06/26/17 06/26/17 06:59 18:59 Intake Total 1550 691 Balance 1550 691 - Medications Medications: Current Medications Acetaminophen (Tylenol 325mg Tab) 650 mg PO Q6 PRN PRN Reason: Pain, moderate (4-7) Last Admin: 06/25/17 10:03 Dose: 650 mg Bisacodyl (Dulcolax) 10 mg [place] DAILY [facility] Stop: 06/28/17 10:01 Last Admin: 06/26/17 10:37 Dose: Not Given Docusate Sodium (Colace) 100 mg PO TID [facility] Last Admin: 06/26/17 10:37 Dose: Not Given Vancomycin HCl 1 gm/ Sodium (Chloride) 250 mls @ 166.7 mls/hr IVPB Q24H [facility] Last Admin: 06/25/17 12:06 Dose: 166.7 mls/hr Chromium/Copper/Manganese/Zinc (1 ml/ Amino Acids) 1,001 mls @ 65 mls/hr IV .[id number] [facility] Stop: 06/26/17 18:00 Last Admin: 06/26/17 10:48 Dose: 65 mls/hr Piperacillin Sod/Tazobactam Sod (Zosyn 2.25 Gm Iv Premix) 2.25 gm in 50 mls @ 100 mls/hr IVPB Q8H [facility] Last Admin: 06/26/17 08:46 Dose: 100 mls/hr Multivitamins/Vitamin C 10 ml/Chromium/Copper/Manganese/Zinc 1 ml/ Amino Acids 1,011 mls @ 65 mls/hr IV .[id number] [facility] Stop: 06/27/17 09:33 Chromium/Copper/Manganese/Zinc (1 ml/ Amino Acids) 1,001 mls @ 65 mls/hr IV .[id number] [facility] Stop: 06/27/17 18:00 Lactulose (Enulose) 20 gm PO HS [facility] Last Admin: 06/25/17 22:00 Dose: Not Given Morphine Sulfate (Morphine) 2 mg IVP Q4 PRN PRN Reason: Pain, moderate (4-7) Last Admin: 06/25/17 21:00 Dose: 2 mg Nystatin (Nystatin Oral Susp) 5 ml PO QID [facility] Last Admin: 06/26/17 10:36 Dose: Not Given Ondansetron HCl (Zofran Inj) 4 mg IVP Q4 PRN PRN Reason: Nausea/Vomiting Last Admin: 06/23/17 17:35 Dose: 4 mg Oxycodone HCl (Oxycontin Extended Release Tab) 20 mg PO Q12 [facility] Last Admin: 06/26/17 10:35 Dose: 20 mg Pantoprazole Sodium (Protonix Inj) 40 mg IVP DAILY [facility] Last Admin: 06/26/17 10:35 Dose: 40 mg Polyethylene Glycol (Miralax) 17 gm PO DAILY [facility] Last Admin: 06/26/17 10:37 Dose: Not Given Saliva Substitute (First Magic Mouthwash) 5 ml PO Q4 [facility] Last Admin: 06/26/17 10:37 Dose: Not Given Vitamin A (Vitamin A & D Oint Ud Foilpak) 0.5 ea TOP Q4 PRN PRN Reason: dry lips Last Admin: 06/24/17 19:44 Dose: 0.5 ea - Labs Labs: 06/26/17 07:08 06/26/17 07:08 PT 108.6 SECONDS (9.7-12.2) H* D 06/25/17 12:11 INR 8.9 D 06/25/17 12:11 APTT 64 SECONDS (21-34) H 06/26/17 07:08 - Head Exam Head Exam: ATRAUMATIC - Eye Exam Eye Exam: Normal appearance - ENT Exam ENT Exam: Mucous Membranes Dry - Respiratory Exam Respiratory Exam: NORMAL BREATHING PATTERN - Cardiovascular Exam Cardiovascular Exam: +S1, +S2 - GI/Abdominal Exam GI & Abdominal Exam: Normal Bowel Sounds - Extremities Exam Extremities Exam: Pedal Edema Assessment and Plan (1) Pancytopenia Assessment & Plan: secondary to chemotherapy growth factor support with improvement in WBC s/p 1 bag plt with improved plt count H/H downtrending Status: Acute (2) Mucositis Assessment & Plan: IV fluids, parenteral nutrition magic mouth wash, pain meds Status: Acute (3) Coagulopathy Assessment & Plan: nutritional s/p vit k and FFP Status: Resolved (4) Pulmonary emboli Assessment & Plan: with DVT has IVC filter anticoagulation held for thrombocytopenia and bleeding Status: Chronic (5) Pancreatic cancer Assessment & Plan: stage IV liver mets s/p chemo DNR/DNI Status: Chronic
[2017-06-26 16:15] VITALS: BP 139/92; PULSE 103; RESP 22; TEMP 97.5; O2SAT 94
--- NOTE | 2017-06-26 17:33 | CP.PCM.PRO ---
Pronouncement of Note - Clinical Findings Physical Exam: No Response Verbal/Painful Stimuli, Absent Peripheral Pulses{ Carotid & Femoral}, Absent Heart & Breath Sounds, No Pupillary Light Reflex, No Corneal Reflex, Pupils Fixed & Dilated, Absence of Vital Signs - Pronouncement Time Time of Pronouncement of : 17:26 - Notifications Pronouncement Notifications: Family Notified, Atending Notified Real Estate Leasing Manager Notified: No - Autopsy Autopsy Requested: No - [place] [id number]
[2017-06-26] MEDS ORDERED: PPN #3 IV SCH (18:00)
--- NOTE | 2017-06-26 21:34 | CP.PCM.DIS ---
Provider - Provider Date of Admission: 06/20/17 17:47 Attending physician: Conrad Haynes MD Time Spent in preparation of Discharge (in minutes): 30 Diagnosis - Discharge Diagnosis (1) Coagulopathy Status: Resolved Priority: High (2) History of deep vein thrombosis (DVT) of lower extremity Status: Chronic Priority: Medium (3) Pancreatic cancer Status: Chronic Priority: Medium (4) Pulmonary emboli Status: Chronic Priority: Low (5) UTI (urinary tract infection) Status: Acute Hospital Course - Lab Results Lab Results: Micro Results 06/23/17 16:00 Blood-Thru Central Line Blood Culture - Preliminary NO GROWTH AFTER 3 DAYS 06/23/17 17:00 Blood-Thru Central Line Blood Culture - Preliminary NO GROWTH AFTER 3 DAYS 06/23/17 06:00 Urine,Clean Catch Urine Culture - Final No Growth (<1,000 CFU/ML) Most Recent Lab Values WBC 1.7 K/uL (4.8-10.8) L* D 06/26/17 07:08 RBC 2.80 Mil/uL (3.80-5.20) L 06/26/17 07:08 Hgb 8.4 g/dL (11.0-16.0) L 06/26/17 07:08 Hct 26.0 % (34.0-47.0) L 06/26/17 07:08 MCV 92.8 fL (81.0-99.0) 06/26/17 07:08 MCH 29.9 pg (27.0-31.0) 06/26/17 07:08 MCHC 32.2 g/dL (33.0-37.0) L 06/26/17 07:08 RDW 17.7 % (11.5-14.5) H 06/26/17 07:08 Plt Count 41 K/uL (130-400) L D 06/26/17 07:08 MPV 9.2 fL (7.2-11.7) 06/26/17 07:08 Neut % (Auto) 35.0 % (50.0-75.0) L 06/26/17 07:08 Lymph % (Auto) 39.0 % (20.0-40.0) 06/26/17 07:08 [place] % (Auto) 26.0 % (0.0-10.0) H 06/26/17 07:08 Eos % (Auto) 0.0 % (0.0-4.0) 06/26/17 07:08 Baso % (Auto) 0.0 % (0.0-2.0) 06/26/17 07:08 Neut # 0.6 K/uL (1.8-7.0) L 06/26/17 07:08 Lymph # 0.7 K/uL (1.0-4.3) L 06/26/17 07:08 [place] # 0.4 K/uL (0.0-0.8) 06/26/17 07:08 Eos # 0.0 K/uL (0.0-0.7) 06/26/17 07:08 Baso # 0.0 K/uL (0.0-0.2) 06/26/17 07:08 Total Counted Cancelled 06/24/17 05:56 Neutrophils % (Manual) 29 % (50-75) L 06/26/17 07:08 Band Neutrophils % 5 % (0-2) H 06/26/17 07:08 Lymphocytes % (Manual) 39 % (20-40) 06/26/17 07:08 Reactive Lymphs % Cancelled 06/24/17 05:56 Monocytes % (Manual) 25 % (0-10) H 06/26/17 07:08 Eosinophils % (Manual) Cancelled 06/24/17 05:56 Basophils % (Manual) Cancelled 06/24/17 05:56 Metamyelocytes % Cancelled 06/24/17 05:56 Myelocytes % 2 % (0-0) H 06/26/17 07:08 Promyelocytes % Cancelled 06/24/17 05:56 Blast Cells % Cancelled 06/24/17 05:56 Plasma Cell % (Manual) Cancelled 06/24/17 05:56 Nucleated RBC % 8 % (0-0) H 06/26/17 07:08 Differential Comment 06/22/17 07:56 Hypersegmented Polys Cancelled 06/24/17 05:56 Smudge Cells Cancelled 06/24/17 05:56 Toxic Granulation Cancelled 06/24/17 05:56 Dohle Bodies Cancelled 06/24/17 05:56 Renee Rods Cancelled 06/24/17 05:56 Platelet Estimate Decreased (NORMAL) L 08/16/17 07:08 Plt Clumps, EDTA Cancelled 06/24/17 05:56 Large Platelets Present 06/26/17 07:08 Giant Platelets Cancelled 06/24/17 05:56 RBC Morphology Cancelled 06/24/17 05:56 Polychromasia Cancelled 06/24/17 05:56 Hypochromasia (manual) Cancelled 06/24/17 05:56 Poikilocytosis (manual Slight 06/26/17 07:08 Basophilic Stippling Cancelled 06/24/17 05:56 Anisocytosis (manual) Slight 06/26/17 07:08 Microcytosis (manual) Cancelled 06/24/17 05:56 Macrocytosis (manual) Cancelled 06/24/17 05:56 Spherocytes Cancelled 06/24/17 05:56 Sickle Cells Cancelled 06/24/17 05:56 Target Cells Cancelled 06/24/17 05:56 Tear Drop Cells Cancelled 06/24/17 05:56 Ovalocytes Cancelled 06/24/17 05:56 Stomatocytes Cancelled 06/24/17 05:56 Helmet Cells Cancelled 06/24/17 05:56 Gill-Ehrenberg Bodies Cancelled 06/24/17 05:56 Makeda Cells Slight 06/26/17 07:08 Acanthocytes (Spur) Cancelled 06/24/17 05:56 Rouleaux Cancelled 06/24/17 05:56 Schistocytes Cancelled 06/24/17 05:56 Smear Path Review 06/22/17 07:56 PT 108.6 SECONDS (9.7-12.2) H* D 06/25/17 12:11 INR 8.9 D 06/25/17 12:11 APTT 64 SECONDS (21-34) H 06/26/17 07:08 Fibrinogen 291 mg/dL (200-400) 06/25/17 13:37 Fibrin Degrad Products Positive (NEGATIVE) H 06/23/17 11:40 Fibrin Degrad Prod, Qt >10<40 ug/mL (<10) H 06/23/17 11:40 Sodium 130 mmol/L (132-148) L 06/26/17 07:08 Potassium 4.5 mmol/L (3.6-5.2) 06/26/17 07:08 Chloride 103 mmol/L (98-107) 08/16/17 07:08 Carbon Dioxide 12 mmol/L (22-30) L 06/26/17 07:08 Anion Gap 20 (10-20) 06/26/17 07:08 BUN 46 mg/dL (7-17) H 06/26/17 07:08 Creatinine 3.0 MG/DL (0.7-1.2) H 06/26/17 07:08 Est GFR ( Amer) 20 06/26/17 07:08 Est GFR (Non-Af Amer) 16 06/26/17 07:08 Random Glucose 58 mg/dL (65-105) L 06/26/17 07:08 Calcium 7.7 mg/dl (8.6-10.4) L 06/26/17 07:08 Phosphorus 3.6 mg/dL (2.5-4.5) 06/20/17 17:10 Magnesium 2.1 mg/dL (1.6-2.3) 06/20/17 17:10 Total Bilirubin 3.0 mg/dL (0.2-1.3) H 06/26/17 07:08 Direct Bilirubin 2.5 mg/dL (0.0-0.4) H 06/26/17 07:08 AST 206 U/L (14-36) H D 06/26/17 07:08 ALT 87 U/L (9-52) H 06/26/17 07:08 Alkaline Phosphatase 205 U/L (38-126) H 06/26/17 07:08 Ammonia 29 umol/L (9-33) 06/26/17 17:15 Total Protein 4.8 g/dL (6.3-8.3) L 06/26/17 07:08 Albumin 2.1 g/dL (3.5-5.0) L 06/26/17 07:08 Globulin 2.7 gm/dL (2.2-3.9) 06/26/17 07:08 Albumin/Globulin Ratio 0.8 (1.0-2.1) L 06/26/17 07:08 Lipase 66 U/L (23-300) 06/20/17 17:10 Urine Color Fabiola (YELLOW) 06/21/17 07:12 Urine Clarity Hazy (Clear) 06/21/17 07:12 Urine pH 5.0 (5.0-8.0) 06/21/17 07:12 Ur Specific [place] 1.013 (1.003-1.030) 06/21/17 07:12 Urine Protein Negative mg/dL (NEGATIVE) 06/21/17 07:12 Urine Glucose (UA) Normal mg/dL (Normal) 06/21/17 07:12 Urine Ketones Negative mg/dL (NEGATIVE) 06/21/17 07:12 Urine Blood 2+ (NEGATIVE) H 06/21/17 07:12 Urine Nitrate Negative (NEGATIVE) 06/21/17 07:12 Urine Bilirubin Negative (NEGATIVE) 06/21/17 07:12 Urine Urobilinogen 2.0 mg/dL (0.2-1.0) H 06/21/17 07:12 Ur Leukocyte Esterase 3+ [place]/uL (Negative) H 06/21/17 07:12 Urine WBC (Auto) 90 /hpf (0-5) H 06/21/17 07:12 Urine RBC (Auto) 34 /hpf (0-3) H 06/21/17 07:12 Ur Squamous Epith Cells < 1 /hpf (0-5) 06/21/17 07:12 Urine Bacteria Occ (<OCC) H 06/21/17 07:12 Stool Occult Blood Positive (NEGATIVE) H 06/25/17 01:53 Vancomycin Trough 18.6 ug/mL (5.0-10.0) H 06/26/17 11:21 Random Vancomycin 14.54 ug/mL 06/25/17 06:07 Blood Type A POSITIVE 06/22/17 17:29 Antibody Screen Negative 06/22/17 17:29 Crossmatch See Detail 06/22/17 17:29 - Hospital Course Hospital Course: 56 y/o WITH DTAGE 4 PANCREATIC CA ADMITTED POST CHEMOTHERAPY NAUSEA, ABDOMINAL PAIN WEAKNESS, PANCYTOPENIA, SHE GOT WORSE AND CONTINUE TO GET SICK TILL SHE , DNP DNI Discharge Exam - Head Exam Head Exam: ATRAUMATIC - Eye Exam Eye Exam: EOMI, Normal appearance - ENT Exam ENT Exam: Normal Exam, TM's Normal Bilaterally - Respiratory Exam Respiratory Exam: NORMAL BREATHING PATTERN - GI/Abdominal Exam GI & Abdominal Exam: Mass, Normal Bowel Sounds, Organomegaly Discharge Plan - Follow Up Plan Condition: FAIR Disposition: WITH WITHOUT AUTOPSY
[2017-06-27] MEDS ORDERED: PPN #4 IV SCH (09:30)
--- NOTE | 2017-07-02 20:00 | CARD ---
APPROVED REPORT EKG Measurement Heart [id number] <Conclusion> Sinus tachycardia Low voltage QRS Possible Inferior infarct, age undetermined T wave abnormality, consider lateral ischemia Abnormal ECG
== END 2017-06-26 17:25 | DRG 574 ==
LOC: C.ER 16:35 → EEVIPCON 17:47 → C.9E 17:47 → C.6T 18:45
PROVIDERS: ADMIT Internal Medicine; ATTEND Internal Medicine
PROC: 30233L1 Transfusion of Nonautologous Fresh Plasma into Peripheral Vein, Percutaneous Approach (ICD-10-PCS; principal; 2017-06-24)
PROC: 3E0336Z Introduction of Nutritional Substance into Peripheral Vein, Percutaneous Approach (ICD-10-PCS; 2017-06-24)
PROC: 30233R1 Transfusion of Nonautologous Platelets into Peripheral Vein, Percutaneous Approach (ICD-10-PCS; 2017-06-24)
DX: D61.810 Antineoplastic chemotherapy induced pancytopenia (principal); K92.0 Hematemesis; C78.7 Secondary malignant neoplasm of liver and intrahepatic bile duct; C25.9 Malignant neoplasm of pancreas, unspecified; D70.1 Agranulocytosis secondary to cancer chemotherapy; R13.10 Dysphagia, unspecified; K12.31 Oral mucositis (ulcerative) due to antineoplastic therapy; I82.5Z1 Chronic embolism and thrombosis of unspecified deep veins of right distal lower extremity; N39.0 Urinary tract infection, site not specified; I10 Essential (primary) hypertension; K29.70 Gastritis, unspecified, without bleeding; R79.89 Other specified abnormal findings of blood chemistry; T45.515A Adverse effect of anticoagulants, initial encounter; Z86.718 Personal history of other venous thrombosis and embolism; E78.00 Pure hypercholesterolemia, unspecified; G89.3 Neoplasm related pain (acute) (chronic); J45.909 Unspecified asthma, uncomplicated; K57.30 Diverticulosis of large intestine without perforation or abscess without bleeding; K62.1 Rectal polyp; K59.00 Constipation, unspecified; R50.81 Fever presenting with conditions classified elsewhere; T45.1X5A Adverse effect of antineoplastic and immunosuppressive drugs, initial encounter; Z66 Do not resuscitate; Z79.01 Long term (current) use of anticoagulants; Z80.0 Family history of malignant neoplasm of digestive organs; Z86.711 Personal history of pulmonary embolism; Z87.891 Personal history of nicotine dependence